=== PATIENT | female | born 1955 | race Hispanic/Latino ===

== ENCOUNTER → 2017-06-29 | Outpatient (REF) | payer OTHER ==
[2017-06-30 14:15] LABS: TOTAL PROTEIN,RANDOM URINE 5.5 MG/DL (0.0-12.0)
== END ==
LOC: M LAB REF 12:59
DX: N18.3 Chronic kidney disease, stage 3 (moderate) (principal)
CPT/HCPCS: 84156

== ENCOUNTER → 2017-08-28 | Outpatient (REF) | payer OTHER ==
[2017-08-28 19:10] LABS: FERRITIN 184 NG/ML (8-252); IRON (FE) 44 UG/DL (50-170); PERCENT SATURATION 17.3 % (13.2-45.0); TOTAL IRON BINDING CAPACITY 254 UG/DL (250-450)
== END ==
LOC: M LAB REF 18:14
DX: D64.9 Anemia, unspecified (principal)

== ENCOUNTER → 2017-09-26 | Outpatient (REF) | payer OTHER ==
[2017-09-26 14:07] LABS: APPEARANCE, URINE HAZY (CLEAR); BACTERIA, URINE AUTO 3+ (NEGATIVE); BILIRUBIN, URINE AUTO NEGATIVE (NEGATIVE); BLOOD, URINE BLOOD NEGATIVE (NEGATIVE); COLOR, URINE YELLOW (YELLOW); GLUCOSE, URINE (UA) AUTO NEGATIVE (NEGATIVE); KETONE, URINE AUTO NEGATIVE (NEGATIVE); LEUKOCYTE ESTERASE, URINE AUTO NEGATIVE (NEGATIVE); MUCUS, URINE SMALL (NEGATIVE); NITRITE, URINE AUTO NEGATIVE (NEGATIVE); PROTEIN, URINE AUTO NEGATIVE (NEGATIVE); RBC, URINE AUTO 1 /HPF (0-3); SPECIFIC GRAVITY URINE AUTO 1.008 (1.002-1.035); SQUAMOUS EPITHELIAL CELL UR AU 2 /HPF (0-6); UROBILINOGEN, URINE AUTO 0.2 mg/dL (0.0-2.0); WBC, URINE AUTO 2 /HPF (0-3)
== END ==
LOC: M SMT 13:25
DX: R31.0 Gross hematuria (principal)

== ENCOUNTER → 2017-10-02 | Outpatient (CLI) | payer OTHER ==
[~2017-10-02] MED LIST: ISOVUE-370 76% 100ML VIAL (Q9967) As Ordered
== END ==
LOC: M RAD 15:30
DX: K86.89 Other specified diseases of pancreas (principal)
CPT/HCPCS: Q9967

== ENCOUNTER → 2017-10-30 | Outpatient (REF) | payer OTHER | LOC: M SMT 17:32 | DX: R31.0 Gross hematuria (principal) | CPT/HCPCS: 88108 ==

== ENCOUNTER → 2018-03-01 | Outpatient (REF) | payer OTHER ==
[2018-03-01 13:35] LABS: APPEARANCE, URINE CLEAR (CLEAR); BACTERIA, URINE AUTO 1+ (NEGATIVE); BILIRUBIN, URINE AUTO NEGATIVE (NEGATIVE); BLOOD, URINE BLOOD NEGATIVE (NEGATIVE); COLOR, URINE YELLOW (YELLOW); GLUCOSE, URINE (UA) AUTO NEGATIVE (NEGATIVE); KETONE, URINE AUTO NEGATIVE (NEGATIVE); LEUKOCYTE ESTERASE, URINE AUTO NEGATIVE (NEGATIVE); NITRITE, URINE AUTO NEGATIVE (NEGATIVE); PROTEIN, URINE AUTO NEGATIVE (NEGATIVE); RBC, URINE AUTO 0 /HPF (0-3); SPECIFIC GRAVITY URINE AUTO 1.008 (1.002-1.035); SQUAMOUS EPITHELIAL CELL UR AU 2 /HPF (0-6); UROBILINOGEN, URINE AUTO 0.2 mg/dL (0.0-2.0); WBC, URINE AUTO 1 /HPF (0-3)
== END ==
LOC: M SMT 13:10
PROVIDERS: ATTEND Nurse Practitioner Women's Health
DX: R31.0 Gross hematuria (principal)

== ENCOUNTER 2018-09-17 14:58 | Outpatient (RCR) | payer MEDICARE, OTHER | END 2018-10-10 | disposition home or self-care (01) | LOC: M PT 14:58 | PROVIDERS: ATTEND Physician Assistant | DX: I89.0 Lymphedema, not elsewhere classified (principal) ==

== ENCOUNTER → 2020-09-15 | Outpatient (CLI) | payer MEDICARE ==
--- NOTE | 2020-09-15 13:47 | REP ---
INDICATION: PRESSURE ULCER OF RIGHT HEEL COMPARISON: None. TECHNIQUE: Right lower extremity arterial ultrasound and Doppler FINDINGS: All numeric values represent peak systolic velocity in cm/SEC The ankle brachial index is 0.81 FLIGHT TECHNICIAN: 133 triphasic Profunda: 114 biphasic SFA proximal: 80 monophasic SFA mid: 63 monophasic SFA distal 29-162 monophasic Popliteal: 57 monophasic JAYESH proximal: 64 monophasic Tibioperoneal trunk: Not visualized OYSTER FLOATER proximal: 8 monophasic OYSTER FLOATER distal: 8 monophasic JAYESH distal: 47 monophasic Mild to moderate calcified plaque was seen throughout the common femoral artery to the bifurcation with varying degrees of luminal narrowing increasing distally. Distal to the SFA a 5.6:1 stenosis was identified. IMPRESSION: As above <Electronically signed by Haim Figueroa > 09/15/20 2031
== END ==
LOC: M RAD 12:10
PROVIDERS: ATTEND Surgery
DX: L89.613 Pressure ulcer of right heel, stage 3 (principal); I70.211 Atherosclerosis of native arteries of extremities with intermittent claudication, right leg

== ENCOUNTER → 2020-09-29 | Outpatient (POV) | payer MEDICARE ==
[~2020-09-29] VITALS: Ht 162.6 cm; Wt 88.1 kg
[2020-09-29 09:15] VITALS: BP 111/63
--- NOTE | 2020-09-30 12:06 | IRCOV ---
[facility] IR Consult Office Visit IR Consult Office Visit DATE: Sep 29, 2020 REASON FOR CONSULTATION/CHIEF COMPLAINT: Nonhealing right heel ulcer. HISTORY OF PRESENT ILLNESS: 65-year-old female with diabetes, prior IA and former smoker, presents with nonhealing right heel ulcer. Patient's son translates for the patient. He states that the ulcer has been there for 5 months and is getting worse. There is no pain associated as she has numbness in her feet. Patient complains of cramps in the right leg all the time and worse with standing. She feels her cramping is better and pain is better with her legs elevated. She has suffered decades of bilateral lower extremity swelling and bulging varicose veins. These are "normal for her". Patient quit smoking 40 years ago. No prior lower extremity arterial thrombosis, gangrene, amputation or lower extremity arterial/venous procedures. No prior lower extremity angiography, angioplasty or stenting. Patient had an IA in 1995 and she has a defibrillator. She denies chest pain, shortness of breath, orthopnea or paroxysmal nocturnal dyspnea. No prior strokes. Patient states her diabetes is well-controlled. Patient is on Coumadin for the past 10 years. ALLERGIES: Please see below. HOME MEDICATIONS: Please see below. PAST MEDICAL HISTORY: Diabetes CHF Hypertension A. fib PAST SURGICAL HISTORY: Hernia surgery Defibrillator placement FAMILY HISTORY: Noncontributory. SOCIAL HISTORY: Ex-smoker. Quit 40 years ago. Denies alcohol or drugs. REVIEW OF SYSTEMS: Otherwise negative. PHYSICAL EXAMINATION: VITAL SIGNS: Please see below. GENERAL APPEARANCE: Appears well. Comfortable at rest. HEENT: No scleral icterus. RESPIRATORY: Normal breathing at rest. CARDIOVASCULAR: Normal rate. ABDOMEN: Soft nontender. EXTREMITIES: Left lower extremity: Edema to the knee. Warm to touch. Bulging varicose veins. Hemosiderin deposition. No ulcers. No gangrene. No amputations. Femoral pulse 2+ AT + PT negative. Motor 4 out of 5, sensation loss mid calf to feet. Right lower extremity: Color and temperature normal. There is hemosiderin deposition about the ankle. Right heel ulcer. Nontender. Edema to the knee. Bulging varicose veins. Sensory loss mid calf down to feet. Motor 4 out of 5. Femoral pulse 2+ PT +1 AT negative. NEUROLOGICAL: Alert and oriented. PSYCHIATRIC: Appropriate to circumstance. LABORATORY DATA: None recent. Imaging: I personally reviewed the right lower extremity arterial ultrasound performed 09/15/2020. There is distal SFA atherosclerotic disease with stenosis followed by monophasic waveforms to the foot. CURTIS 0.8. Calcified vasculature. ASSESSMENT/PLAN: 65-year-old diabetic female with history of coronary artery disease, presents with nonhealing right heel ulcer and abnormal right lower extremity arterial ultrasound. I agree she would benefit from angiography and/or intervention in the same setting as indicated. We discussed the risks and benefits of the procedure and patient is willing to proceed. We'll schedule the patient for right lower extremity angiography and intervention. She is on Coumadin for atrial fibrillation and will need to stop this prior to the procedure, but only after consultation with Dr. Rasheed. Patient understands this does put her at a risk of stroke. Lovenox bridge may be indicated; will refer to Dr. Rasheed for this. Given her bilateral lower extremity edema and findings of venous hypertension, I will also order bilateral lower extremity venous reflux study, to evaluate for saphenous vein reflux. I spent 30 minutes reviewing patient's records, imaging and in consultation with the patient. Thank you for this referral. Cc Dr. Rashid Cc Dr. Rasheed VS, I&O, 24H, Fishbone Vital Signs/I&O Vital Signs Date Time Temp Pulse Resp B/P (MAP) Pulse Ox O2 Delivery O2 Flow Rate FiO2 09/29/20 09:15 87.4 60 20 111/63 (79) 99 Room Air GURVINDER SPENCE MD Sep 30, 2020 12:06
== END ==
LOC: M IRPOV 09:04
PROVIDERS: ATTEND Radiology Diagnostic Radiology
DX: L89.619 Pressure ulcer of right heel, unspecified stage (principal); E11.621 Type 2 diabetes mellitus with foot ulcer; I25.2 Old myocardial infarction; I48.91 Unspecified atrial fibrillation; I50.9 Heart failure, unspecified; Z79.01 Long term (current) use of anticoagulants; Z87.891 Personal history of nicotine dependence; Z95.810 Presence of automatic (implantable) cardiac defibrillator

== ENCOUNTER 2020-10-05 11:46 | Inpatient (IN) | payer MEDICARE, OTHER ==
[~2020-10-05] VITALS: Ht 162.6 cm; Wt 78.3 kg
[2020-10-05] MEDS ORDERED: GLUCAGON INJ 1MG VIAL SC PRN (12:55)
[2020-10-05] MEDS ORDERED: GLUCOSE 4GM CHEW TABLET PO PRN (12:55)
[2020-10-05] MEDS ORDERED: DEXTROSE 50% 50 ML SYRINGE IV PRN (12:55)
[2020-10-05] MEDS ORDERED: METF500T13 PO (13:21)
[2020-10-05] MEDS ORDERED: LOPI600T PO (13:21)
[2020-10-05] MEDS ORDERED: DIGO0.253 PO (13:21)
[2020-10-05] MEDS ORDERED: HUMU70IN SC ×2 (13:21)
[2020-10-05] MEDS ORDERED: CARV12.5 PO (13:21)
[2020-10-05] MEDS ORDERED: BUME1TAB3 PO (13:21)
[2020-10-05] MEDS ORDERED: PANT40TA29 PO (13:21)
[2020-10-05] MEDS ORDERED: FEBU40TA2 PO (13:21)
[2020-10-05] MEDS ORDERED: AMIT50TA PO (13:21)
[2020-10-05] MEDS ORDERED: LISI10TA22 PO (13:21)
[2020-10-05] MEDS ORDERED: WARF-58 PO (13:21)
[2020-10-05] MEDS ORDERED: MAGN400T33 PO (13:21)
[2020-10-05 13:45] VITALS: BP 120/55
[2020-10-05 14:14] LABS: HEMATOCRIT 32.9 % (36.0-47.0); HEMOGLOBIN 10.6 g/dl (12.0-15.5); MEAN CORPUSCULAR HEMOGLOBIN 28.3 pg (27.0-33.0); MEAN CORPUSCULAR HGB CONC 32.2 g/dl (32.0-36.5); PLATELET COUNT, AUTOMATED 423 10^3/uL (150-450); RED BLOOD COUNT 3.74 10^6/uL (4.00-5.40); WHITE BLOOD COUNT 15.6 10^3/uL (4.0-10.0)
[2020-10-05] MEDS ORDERED: ASCO500T PO (14:32)
[2020-10-05] MEDS ORDERED: AMLO1TAB24 PO (14:32)
[2020-10-05] MEDS ORDERED: HOME MED LIST COMPLETE! XX SCH (14:35)
[2020-10-05 14:44] LABS: ALBUMIN 2.6 GM/DL (3.2-5.2); BILIRUBIN,TOTAL 0.9 MG/DL (0.2-1.0); CALCIUM LEVEL 9.2 MG/DL (8.8-10.2); CREATININE FOR GFR 1.88 MG/DL (0.55-1.30); GLOMERULAR FILTRATION RATE 28.4 (>45); POTASSIUM SERUM 4.4 MEQ/L (3.5-5.1); TOTAL PROTEIN 7.4 GM/DL (6.4-8.2)
[2020-10-05] MEDS ORDERED: VANCOMYCIN INTERMITTENT/PULSE DOSING BY CLINICAL PHARMACIST PER DOSING PROTOCOL XX SCH (15:30)
[2020-10-05] MEDS: PIPERACILLIN/TAZOBACTAM SOD 3.375 GM in D5W MINI-BAG PLUS 50 ML IV SCH ×2 (16:17→22:29)
--- NOTE | 2020-10-05 16:39 | HPEPDOC ---
[facility] Medical History & Physical Date of Admission Oct 05, 2020 Date of Service: Oct 05, 2020 Attending Physician: TAYLA KINNEY MD History and Physical CHIEF COMPLAINT: infected chronic R heel wound, directly admitted from wound care clinic per Dr. Rashid HISTORY OF PRESENT ILLNESS: 65 yo Bolivian speaking W with a history of IDDM2 c/b diabetic neuropathy and retinopathy with a history of a chronic R heel wound that started a small lesion on her R heel many months ago but has progressively grown until PCP referred her to see Dr. Rashid in the wound care clinic whom she saw for the third appointment today and was found to have worsening of her wound that has malodorous, necrotic and grown in size. Of note she had outpatient PVD studies including a LE arterial ultrasound that showed diffuse PVD that was more prominent distally and was tentatively scheduled for an angioplasty on 10/08. On noting the worsening now frankly infected wound, in addition to debridement, he recommended her admission to medicine for IV antibiotics, wound culture for targeted therapy and IR consult for potentially expedited intervention for her RLE. On evaluation, she was awake and alert with no pain complaints at this time, with son at bedside. She denied any recent fever, chills, rigors, and he described that it was draining on the dressing and malodorous at home such that he even was considering her directly to the ED two days ago but waited because she had Dr. Rashid's appointment today. She has a long history of neuropathy 2/2 DM and has no sensation up to midcalves as well in her hands and so often hurts herself without realizing, and they suspect that is how the initial insult happened. She walks with a two wheeled walker and lives with her son and his family and he does her dressing changes at home. She also denied any chest pain, shortness of breath, palpitations, worsening LE edema from her baseline, new cough, URI symptoms or noted bleeding. Of note, on her way out of the car into the hospital she accidentally fell when, and per bystander reports and her r eport she did not hit her head and she denies any pain. Of note, on initial vitals, she had a recorded oral temperature of 101.6 after having a recorded normal temperature in wound care clinic and without a history of recent fevers. Is due for a repeat set of vitals. Was otherwise normotensive. PAST MEDICAL HISTORY: DM c/b neuropathy and retinopathy HTN HLD CAD Chronic A fib peripheral vertiog GERD CHF, unspecified Gout PVD PAST SURGICAL HISTORY: Hysterectomy Cholecystectomy ICD placement Cystoscopy SOCIAL HISTORY: Lives with adult son and his family Is of [place] descent, and is Bolivian speaking only Prior remote smoking history No alcohol No illicit drug use FAMILY HISTORY: Father: , had metastatic cancer with unknown primary Mother: , from old age Siblings: Healthy Children: Healthy ALLERGIES: Please see below. REVIEW OF SYSTEMS: 10 point ROS was negative except as stated above in the HPI HOME MEDICATIONS: Please see below. PHYSICAL EXAMINATION: VITAL SIGNS: see below GENERAL APPEARANCE: NAD, conversational, obese HEENT: NCAT, PERRLA, EOMI, MMM, CARDIOVASCULAR: Regular, has 3/6 murmur that is loudest at LUSB LUNGS: CTAB, no crackles, wheezing or rhonchi, breathing comfortably on room air ABDOMEN: Obese, normoactive sounds, NTND EXTREMITIES: chronic LE edema with LLE in compression stocking while RLE now has clean new bandaging around the heel. Has varicosities in bilateral LE. NEUROLOGICAL: AOx3, CN 3 -12 intact, moving all extremities with full strength and full range of motion. Sensation absent in feet up to the midshins, sensation also absent/diminished in hands to about wrist level. PSYCHIATRIC: AOx3 LABORATORY DATA and IMAGING: None yet. Direct admission from home. MICROBIOLOGY: Please see below. ASSESSMENT: 65 yo Bolivian speaking W with a history of IDDM2 c/b diabetic neuropathy and retinopathy with a history of a chronic R heel wound that was found to be worse from prior and malodorous, necrotic and grown in size by Dr. Rashid, while also with significant PVD due for angioplasty to improve flow, by Dr. Sood, and now sent in for direct admission for treatment of her infected wound as well as expediting of IR PVD intervention with course now c/b noted fever. PLAN: Worsening infected RLE heel ulcer: -s/p debridement by Dr. Rashid in the office today, 10/05/2020, no cultures sent -wound culture -wound care per Dr. Rashid recs -consulted IR for PVD, spoke with Dr. Kaufman who plan to perform the angioplasty as soon as INR allow and is now <1.5. Her last dose of warfarin was on 10/04 and for now she is tentatively planning to do the procedure on 10/07 -Empiric vanc and piptazo -MRSA PCR, not that the evidence is in relation to wounds, but would yield information on colonization if wound culture is ultimately negative -BCx x 2 Fever: -BCx x 2 -Empiric vanc/piptazo -UA -CXR -respiratory panel DM: -continue twice daily 70/30 insulin -SSI AC/HS-hypoglycemia protocol -FSBG AC/HS -consistent carb diet -hold metformin HTN: -will continue coreg 12.5 BID -holding ACEi, bumex and amlodipine, to restart if BP rises and after labs return and renal function is evaluated Chronic Afib: -hold warfarin given pending IR procedure -daily INR -s/p ICD HLD: -continue gemfibrozil, febuxostat GERD: -continue pantoprazole CHF unspecified -holding bumex until labs result -continue ACEi, BB DVT ppx: recently on coumadin, being held in preparation for IR procedure. Dispo: med/surg Vital Signs Vital Signs Date Time Temp Pulse Resp B/P (MAP) Pulse Ox O2 Delivery O2 Flow Rate FiO2 10/05/20 13:45 101.6 62 18 120/55 (76) 98 Room Air Laboratory Data Labs 24H Laboratory Tests 2 10/05/20 13:30: Coronavirus (COVID-19)(PCR) NEGATIVE 10/05/20 13:32: 10/05/20 13:53: Nucleated Red Blood Cells % (auto) 0.0, Anion Gap 5L, Glomerular Filtration Rate 28.4L, Calcium Level 9.2, Total Bilirubin 0.9, Aspartate Amino Transf (AST/SGOT) 18, Alanine Aminotransferase (ALT/SGPT) 12, Alkaline Phosphatase 79, Total Protein 7.4, Albumin 2.6L, Albumin/Globulin Ratio 0.5L CBC/BMP Laboratory Tests 10/05/20 13:53 Microbiology Microbiology 10/05/20 Blood Culture, Received Pending 10/05/20 Wound Culture, Received Pending 10/05/20 Blood Culture, Received Pending Home Medications Scheduled Amitriptyline HCl (Amitriptyline HCl) 50 Mg Tablet, 50 MG PO QHS Amlodipine Besylate (Amlodipine Besylate) 5 Mg Tablet, 2.5 MG PO DAILY Ascorbic Acid (Ascorbic Acid) 500 Mg Tablet, 500 MG PO DAILY Bumetanide (Bumetanide) 1 Mg Tablet, 1 MG PO DAILY Carvedilol (Carvedilol) 12.5 Mg Tablet, 12.5 MG PO BID Digoxin (Digoxin) 250 Mcg Tablet, 250 MCG PO DAILY Febuxostat (Febuxostat) 40 Mg Tablet, 40 MG PO DAILY Gemfibrozil (Lopid) 600 Mg Tablet, 600 MG PO BID Insulin NPH Hum/Reg Insulin Hm (Humulin 70-30 Vial) 100 Unit/1 Ml Vial, 50 UNITS SC DAILY Insulin NPH Hum/Reg Insulin Hm (Humulin 70-30 Vial) 100 Unit/1 Ml Vial, 30 UNITS SC QHS Lisinopril (Lisinopril) 10 Mg Tablet, 10 MG PO DAILY Magnesium Oxide (Magnesium Oxide) 400 Mg Tablet, 400 MG PO Q2D Metformin HCl (Metformin HCl) 500 Mg Tablet, 500 MG PO BIDWM Pantoprazole Sodium (Pantoprazole Sodium) 40 Mg Tablet.dr, 40 MG PO DAILY Warfarin Sodium (Warfarin Sodium) 3 Mg Tablet, 3 MG PO QHS Allergies Coded Allergies: No Known Allergies (Unverified , 10/05/20) A-FIB/CHADSVASC A-FIB History Current/History of A-Fib/PAF?: Yes Current PO Anticoag Therapy: Yes Treatment Treatment ordered: Warfarin TAYLA KINNEY MD Oct 05, 2020 15:39
[2020-10-05] MEDS ORDERED: VANCOMYCIN HCL 1,000 MG, VIAL MATE ADAPTER 1 EACH in NS 250 ML IV ONE (17:00)
[2020-10-05] MEDS: HumaLOG INSULIN (NovoLOG) PER UNIT SC SCH ×2 (18:58→21:00)
[2020-10-05] MEDS ORDERED: VANCOMYCIN HCL 750 MG, VIAL MATE ADAPTER 1 EACH in NS 250 ML IV ONE (19:00)
--- NOTE | 2020-10-05 20:04 | REPVR ---
PROCEDURE INFORMATION: Exam: CT Right Lower Extremity Without Contrast, Foot Exam date and time: 10/05/2020 5:48 PM Age: 65 years old Clinical indication: Condition or disease; Other: Heel infection; Additional info: Infected R heel wound for extent of infection TECHNIQUE: Imaging protocol: CT of the Right lower extremity without a a a contrast was performed. Exam focused on the foot. Radiation optimization: All CT scans at this facility use at least one of these dose optimization techniques: automated exposure control; mA and/or kV adjustment per patient size (includes targeted exams where dose is matched to clinical indication); or iterative reconstruction. COMPARISON: US UNI LOW EXTREM ARTERIAL LIMIT 09/15/2020 12:32 PM FINDINGS: Bones/joints: No acute fractures. The bony cortical outline and marrow defect underlying the soft tissue defect are suggestive of acute osteomyelitis on image 50 of series 302. A Soft tissues: There is a large soft tissue ulceration defect seen in the medial heel pad of the right foot, best seen on image 108 of series 303. Medial to the soft tissue defect there is a fluid and gas collection, likely an abscess, measuring 2.8 x 2.1 cm transversely on image 61 of series 302 and measuring 1.6 cm in craniocaudal dimension on image 104 of series 303. Chronic calcific enthesopathy is seen in the proximal Achilles on image 6 of series 302. IMPRESSION: 1. There is a large soft tissue ulceration defect seen in the medial heel pad of the right foot, best seen on image 108 of series 303. 2. Medial to the soft tissue defect there is a fluid and gas collection, likely an abscess, measuring 2.8 x 2.1 cm transversely on image 61 of series 302 and measuring 1.6 cm in craniocaudal dimension on image 104 of series 303. 3. The bony cortical outline and marrow defect underlying the soft tissue defect are suggestive of acute osteomyelitis on image 50 of series 302. 4. No acute fractures. 5. Chronic calcific enthesopathy is seen in the proximal Achilles on image 6 of series 302. Electronically signed by: Nolberto Arias On 10/05/2020 20:03:59 PM
[2020-10-05] MEDS ORDERED: HumuLIN (NovoLIN)70/30 INSULIN INJ PER UNIT SC ONE (21:00)
[2020-10-05] MEDS ORDERED: HumuLIN (NovoLIN)70/30 INSULIN INJ PER UNIT SC SCH (21:00)
[2020-10-05 22:25] VITALS: BP 120/56
[2020-10-05] MEDS: AMITRIPTYLINE 50 MG TAB PO SCH (22:28)
[2020-10-05] MEDS: CARVedilol 12.5 MG TAB PO SCH (22:28)
[2020-10-06] MEDS: PIPERACILLIN/TAZOBACTAM SOD 3.375 GM in D5W MINI-BAG PLUS 50 ML IV SCH (04:16)
[2020-10-06 05:31] VITALS: BP 127/57
[2020-10-06] MEDS: ACETAMINOPHEN TAB 650MG DOSE (2X325MG) PO PRN (05:42)
[2020-10-06 08:04] LABS: PROTHROMBIN TIME 54.8 SECONDS (12.5-14.3)
[2020-10-06 08:06] LABS: HEMATOCRIT 27.8 % (36.0-47.0); HEMOGLOBIN 9.2 g/dl (12.0-15.5); MEAN CORPUSCULAR HEMOGLOBIN 28.9 pg (27.0-33.0); MEAN CORPUSCULAR HGB CONC 33.1 g/dl (32.0-36.5); MEAN CORPUSCULAR VOLUME 87.4 fl (80.0-96.0); PLATELET COUNT, AUTOMATED 353 10^3/uL (150-450); RED BLOOD COUNT 3.18 10^6/uL (4.00-5.40); WHITE BLOOD COUNT 14.1 10^3/uL (4.0-10.0)
[2020-10-06 08:08] LABS: INR 5.98
[2020-10-06] MEDS ORDERED: PHYTONADIONE 5 MG TAB PO ONE (08:15)
[2020-10-06 08:24] LABS: CALCIUM LEVEL 8.7 MG/DL (8.8-10.2); CREATININE FOR GFR 1.7 MG/DL (0.55-1.30); GLOMERULAR FILTRATION RATE 31.9 (>45); POTASSIUM SERUM 4.6 MEQ/L (3.5-5.1); VANCOMYCIN RANDOM 15.8 UG/ML
[2020-10-06] MEDS: ASCORBIC ACID 500 MG TAB PO SCH (08:46)
[2020-10-06] MEDS: HumaLOG INSULIN (NovoLOG) PER UNIT SC SCH ×4 (08:46→20:44)
[2020-10-06] MEDS: FEBUXOSTAT 40 MG TABLET (ULORIC) PO SCH (08:46)
[2020-10-06] MEDS: PANTOPRAZOLE 40MG TAB (PROTONIX) PO SCH (08:47)
[2020-10-06] MEDS ORDERED: HumuLIN (NovoLIN)70/30 INSULIN INJ PER UNIT SC SCH (09:00)
[2020-10-06] MEDS: CARVedilol 12.5 MG TAB PO SCH ×2 (10:37→21:27)
[2020-10-06] MEDS: DIGOXIN 0.25 MG TAB PO SCH (10:37)
[2020-10-06] MEDS: PIPERACILLIN/TAZOBACTAM SOD 2.25 GM in D5W MINI-BAG PLUS 50 ML IV SCH ×3 (10:37→21:28)
[2020-10-06] MEDS: VANCOMYCIN HCL 1,000 MG, VIAL MATE ADAPTER 1 EACH in NS 250 ML IV SCH (11:46)
[2020-10-06 14:00] VITALS: BP 123/55
[2020-10-06] MEDS: HumuLIN (NovoLIN)70/30 INSULIN INJ PER UNIT SC SCH (16:35)
--- NOTE | 2020-10-06 18:48 | IPNPDOC ---
Subjective Date Seen The patient was seen on 10/06/20. Subjective Chief Complaint/HPI No fever this morning, denies any pain in the heel, no nausea or vomiting or diarrhea. Has foul smell in the ulcer. Objective Physical Examination General Exam: Positive: Alert, Cooperative, No Acute Distress Eye Exam: Positive: PERRLA, Conjunctiva & lids normal, EOMI; Negative: Sclera icteric Chest Exam: Positive: Clear to auscultation, Normal air movement Heart Exam: Positive: Rate Normal, Irregular Rhythm, Normal S1, Normal S2; Negative: Murmurs, Rubs Abdomen Exam: Positive: Normal bowel sounds, Soft; Negative: Tenderness Extremity Exam: Positive: Normal pulses; Negative: Clubbing, Cyanosis, Edema Skin Exam: Positive: Other skin issue (Large right heel pressure ulcer coverring the whole heel ) Assessment /Plan Assessment 65 yo Lebanese speaking W with a history of IDDM2 c/b diabetic neuropathy and retinopathy with a history of a chronic R heel wound that was found to be worse from prior and malodorous, necrotic and grown in size by Dr. Rashid, while also with significant PVD due for angioplasty to improve flow, by Dr. Sood, and now sent in for direct admission for treatment of her infected wound as well as expediting of IR PVD intervention with course now c/b noted fever. Iinfected RLE heel ulcer with osteomyelitis s/p debridement by Dr. Rashid in the office 10/05/2020, wound care per Dr. Rashid recs Plans for angiogram by IR in the near future. However now with blood cultures positive I anticipate it is going to be done after the cultures are negative and the patient has got few days of antibiotics. Also INR is elevated over 5 Empiric vanc and piptazo BCx 1/2 positive for gram-negative rods Podiatry consult Gram-negative bacteremia Blood culture positive for gram-negative rods Coumadin toxicity Warfarin has been hold for the past 3 days but still INR has gone up to over 5 We will give vitamin K 5 mg as the patient may need IR procedure No signs of bleeding This is likely due to drug drug interaction with antibiotics DM: continue twice daily 70/30 insulin Fingerstick twice daily consistent carb diet HTN: will continue coreg 12.5 BID holding ACEi, bumex and amlodipine, to restart if BP rises and after labs return and renal function is evaluated Chronic Afib: hold warfarin given pending IR procedure daily INR s/p AICD Continue digoxin and Coreg HLD: continue gemfibrozil, febuxostat GERD: continue pantoprazole Systolic CHF Patient has an AICD in place We will hold KENNETH inhibitor and bumetanide Hyperuricemia/gout Uloric BRITTNY versus CKD Creatinine at 1.7, I do not have any baseline in our system Will hold Bumex and KENNETH inhibitor Plan/VTE VTE Prophylaxis Ordered?: Yes VS, I&O, 24H, Fishbone Vital Signs/I&O Vital Signs Date Time Temp Pulse Resp B/P (MAP) Pulse Ox O2 Delivery O2 Flow Rate FiO2 10/06/20 14:00 97.5 60 18 123/55 (77) 100 Room Air I&O- Last 24 Hours up to 6 AM 10/06/20 06:00 Intake Total 1450 ml Balance 1450 ml Laboratory Data 24H LABS Laboratory Tests 2 10/05/20 19:50: Bedside Glucose (Misc Panel) 144H 10/06/20 07:38: Nucleated Red Blood Cells % (auto) 0.0, Prothrombin Time 54.8H, Prothromb Time International Ratio 5.98*H, Anion Gap 7L, Glomerular Filtration Rate 31.9L, Calcium Level 8.7L, Magnesium Level 2.0, Random Vancomycin Level 15.8 10/06/20 07:49: Bedside Glucose (Misc Panel) 115 10/06/20 11:40: Bedside Glucose (Misc Panel) 139H 10/06/20 16:27: Bedside Glucose (Misc Panel) 168H CBC/BMP Laboratory Tests 10/06/20 07:38 Microbiology Microbiology 10/06/20 Blood Culture, Received Pending 10/05/20 Blood Culture - Preliminary, Resulted 10/05/20 Wound Culture, Received Pending 10/05/20 Blood Culture - Preliminary, Resulted No growth after 24 hours . All specim... BALDEMAR BOO MD Oct 06, 2020 18:48
[2020-10-06 20:00] VITALS: BP 153/67
--- NOTE | 2020-10-06 21:11 | IPN ---
PROGRESS NOTE Approximately 8:00 PM DATE: 10/06/2020 CHIEF COMPLAINT: The patient is seen for evaluation of an ulceration on the posterior aspect of her right heel. SUBJECTIVE: The patient states that she has had that ulceration for approximately 5 months. She has been seeing Dr. Rashid in the past and over the last 3 weeks it has gotten significantly worse. She is seen today for evaluation with an rolls mill operator and utilizing an iPad rolls mill operator. The patient states that her ulceration over the last 3 weeks is becoming foul smelling and she was subsequently admitted for infection in her right heel. Of note, the patient has an injury of the Achilles tendon, approximately 10 years ago which was not treated surgically or with casting in [place]. She is seen today for evaluation. PAST MEDICAL HISTORY: The patient's past medical history is significant for: 1. Diabetes mellitus with retinopathy and neuropathy. 2. Hypertension. 3. Coronary arterial disease. 4. Chronic atrial fibrillation. 5. Gastroesophageal reflux disease. 6. Congestive heart failure. 7. Gout. 8. Peripheral vascular disease. 9. Chronic kidney disease. PAST SURGICAL HISTORY: The patient's past surgical history is significant for: 1. Hysterectomy. 2. Cholecystectomy. 3. ICD placement. 4. Cystoscopy. OBJECTIVE: PHYSICAL EXAMINATION: GENERAL APPEARANCE: An alert, well orientated 65-year-old female in no acute distress. MEDICATIONS: At home: 1. Amitriptyline 50 mg tablets q. h.s. 2. Amlodipine 2.5 mg p.o. daily. 3. Ascorbic Acid 500 mg p.o. daily. 4. Butethamine one mg p.o. daily. 5. Carvedilol 12.5 mg p.o. twice daily. 6. Digoxin 250 mcg daily. 7. Febuxostat 40 mg p.o. daily. 8. Lopid 600 mg p.o. twice daily. 9. Insulin 50 units subcutaneously daily, 30 units q. h.s. 10. Lisinopril 10 mg daily. 11. Magnesium Oxide 400 mg p.o. q. 2 d. 12. Metformin 500 mg p.o. twice daily. 13. Pantoprazole 40 mg daily. 14. Warfarin 3 mg p.o. q. h.s. ALLERGIES: NO KNOWN ALLERGIES. PHYSICAL EXAMINATION: EXTREMITIES: Evaluation of the patient's foot reveals an ulceration at the posterior heel. This ulceration measures from medial to lateral, 5.5 cm, from distal to plantar 3.6 cm, so that was 5.5 cm by 3.6 cm by approximately one cm in depth. It extends directly to the calcaneus. There was a foul odor. Necrosis of the Achilles tendon is noted. IMAGING: CT scan was reviewed which reveals osseous loss of the posterior calcaneus at the insertion of the Achilles tendon where there is a large retrocalcaneal spur. Soft tissue defect is also noted with soft tissue defects, likely an abscess measuring 2.8 cm by 2.1 cm. LABORATORY STUDIES: Reviewed which revealed a white count on admission of 15.6. GFR on admission is 28.4, INR is 5.98. Micro bacteriology studies reveal a blood culture pending as well as a wound culture. ASSESSMENT: Osteomyelitis right heel. PLAN: We discussed with the patient surgical correction consisting of debridement of the tuber of the calcaneus. This would require detachment of the Achilles tendon which appears to be detached clinically with minimal plantar flexure strength of the right extremity. We discussed packing the wound open. This can be performed when her bleeding times are at a normal level. Presently she will continue on IV antibiotics until her culture becomes available for review. Her questions were answered. Continue utilizing a foam boot to offload the heel. Wound care consisting of cleaning the wound with Vashe, letting stand for 10 minutes, followed by Hydrochloride Gel with dressing twice daily.
[2020-10-06] MEDS: AMITRIPTYLINE 50 MG TAB PO SCH (21:27)
--- NOTE | 2020-10-06 21:51 | ECGEPIP ---
[facility] Test Date: 2020-10-05 Pat Name: ANTONIO ROWE Department: Room: [place] [address] Gender: Female Head Holder: josse : 1955 Requested By: TAYLA Otero Order Number: [id number] Reading MD: Marcos Rasheed Measurements Intervals [place] Rate: 63 P: ME: QRS: 154 QRSD: 148 T: -63 QT: 450 QTc: 460 Interpretive Statements Ventricular-paced rhythm with premature ventricular or aberrantly conducted complexes Underlying rhythm seems to be Atrial Fibrillation No prior tracing in the system Electronically Signed on 10-06-2020 21:51:38 EDT by Marcos Rasheed
[2020-10-07] VITALS (9 sets, daily range): BP systolic 122–167; BP diastolic 52–70
[2020-10-07] MEDS: PIPERACILLIN/TAZOBACTAM SOD 2.25 GM in D5W MINI-BAG PLUS 50 ML IV SCH ×4 (04:20→21:52)
[2020-10-07 06:33] LABS: HEMATOCRIT 29.4 % (36.0-47.0); HEMOGLOBIN 9.4 g/dl (12.0-15.5); MEAN CORPUSCULAR HEMOGLOBIN 27.8 pg (27.0-33.0); PLATELET COUNT, AUTOMATED 371 10^3/uL (150-450); RED BLOOD COUNT 3.38 10^6/uL (4.00-5.40); WHITE BLOOD COUNT 10.6 10^3/uL (4.0-10.0)
[2020-10-07 06:45] LABS: INR 1.64; PROTHROMBIN TIME 19.8 SECONDS (12.5-14.3)
[2020-10-07 06:57] LABS: CALCIUM LEVEL 8.5 MG/DL (8.8-10.2); CREATININE FOR GFR 1.4 MG/DL (0.55-1.30); GLOMERULAR FILTRATION RATE 39.9 (>45); POTASSIUM SERUM 4.4 MEQ/L (3.5-5.1)
[2020-10-07] MEDS: HumaLOG INSULIN (NovoLOG) PER UNIT SC SCH ×4 (07:30→21:00)
[2020-10-07] MEDS: FEBUXOSTAT 40 MG TABLET (ULORIC) PO SCH (07:59)
[2020-10-07] MEDS: HumuLIN (NovoLIN)70/30 INSULIN INJ PER UNIT SC SCH ×2 (07:59→16:11)
[2020-10-07] MEDS: MAGNESIUM OXIDE 400MG TAB (MAG-OX) PO SCH (08:01)
[2020-10-07] MEDS: ASCORBIC ACID 500 MG TAB PO SCH (08:01)
[2020-10-07] MEDS: PANTOPRAZOLE 40MG TAB (PROTONIX) PO SCH (08:01)
[2020-10-07] MEDS: CARVedilol 12.5 MG TAB PO SCH ×3 (09:00→22:02)
[2020-10-07] MEDS: DIGOXIN 0.25 MG TAB PO SCH (09:00)
[2020-10-07] MEDS: VANCOMYCIN HCL 1,000 MG, VIAL MATE ADAPTER 1 EACH in NS 250 ML IV SCH (11:00)
--- NOTE | 2020-10-07 14:46 | IPNPDOC ---
Subjective Date Seen The patient was seen on 10/07/20. Subjective Chief Complaint/HPI No further fever. No complaints this morning no events overnight. Going to over with podiatry Objective Physical Examination General Exam: Positive: Alert, Cooperative, No Acute Distress Eye Exam: Positive: PERRLA, Conjunctiva & lids normal, EOMI; Negative: Sclera icteric Chest Exam: Positive: Clear to auscultation, Normal air movement Heart Exam: Positive: Rate Normal, Irregular Rhythm, Normal S1, Normal S2; Negative: Murmurs, Rubs Abdomen Exam: Positive: Normal bowel sounds, Soft; Negative: Tenderness Extremity Exam: Positive: Normal pulses; Negative: Clubbing, Cyanosis, Edema Skin Exam: Positive: Other skin issue (Large right heel pressure ulcer coverring the whole heel ) Assessment /Plan Assessment 65 yo Frisian speaking W with a history of IDDM2 c/b diabetic neuropathy and retinopathy with a history of a chronic R heel wound that was found to be worse from prior and malodorous, necrotic and grown in size by Dr. Rashid, while also with significant PVD due for angioplasty to improve flow, by Dr. Sood, and now sent in for direct admission for treatment of her infected wound as well as expediting of IR PVD intervention with course now c/b noted fever. Infected RLE heel ulcer with osteomyelitis s/p debridement by Dr. Rashid in the office 10/05/2020, wound care per Dr. Rashid recs Plans for angiogram by IR in the near future. However now with blood cultures positive I anticipate it is going to be done after the cultures are negative and the patient has got few days of antibiotics. Empiric vanc and piptazo BCx 1/2 positive for gram-negative rods Podiatry to take OR for for incision and debridement Gram-negative bacteremia Blood culture positive for gram-negative rods Coumadin toxicity Resolved This is likely due to drug drug interaction with antibiotics We will give 1 unit of FFP because the patient is going for surgery and the INR is still at 1.[address] likely place the patient on Lovenox instead of restarting Coumadin in anticipation of angiogram that is scheduled for next Monday DM: continue twice daily 70/30 insulin Fingerstick twice daily consistent carb diet HTN: will continue coreg 12.5 BID holding ACEi, bumex and amlodipine, to restart if BP rises and after labs return and renal function is evaluated Chronic Afib: hold warfarin given pending IR procedure daily INR s/p AICD Continue digoxin and Coreg HLD: continue gemfibrozil, febuxostat GERD: continue pantoprazole Systolic CHF Patient has an AICD in place We will hold KENNETH inhibitor and bumetanide Hyperuricemia/gout Uloric BRITTNY versus CKD Creatinine at 1.7, I do not have any baseline in our system Will hold Bumex and KENNETH inhibitor Plan/VTE VTE Prophylaxis Ordered?: Yes VS, I&O, 24H, Fishbone Vital Signs/I&O Vital Signs Date Time Temp Pulse Resp B/P (MAP) Pulse Ox O2 Delivery O2 Flow Rate FiO2 10/07/20 14:35 96.7 60 14 139/64 99 Room Air I&O- Last 24 Hours up to 6 AM 10/07/20 05:59 Intake Total 1720 ml Output Total 0 ml Balance 1720 ml Laboratory Data 24H LABS Laboratory Tests 2 10/06/20 16:27: Bedside Glucose (Misc Panel) 168H 10/06/20 20:22: Bedside Glucose (Misc Panel) 159H 10/07/20 06:19: Nucleated Red Blood Cells % (auto) 0.0, Prothrombin Time 19.8H, Prothromb Time International Ratio 1.64, Anion Gap 5L, Glomerular Filtration Rate 39.9L, Calcium Level 8.5L 10/07/20 09:55: Vancomycin Level Trough 16.2 10/07/20 11:32: Bedside Glucose (Misc Panel) 149H CBC/BMP Laboratory Tests 10/07/20 06:19 Microbiology Microbiology 10/06/20 Blood Culture, Received Pending 10/05/20 Blood Culture - Preliminary, Resulted 10/05/20 Wound Culture - Preliminary, Resulted Escherichia Coli Staphylococcus Aureus 10/05/20 Blood Culture - Preliminary, Resulted No Growth after 48 hours. All Specime... BALDEMAR BOO MD Oct 07, 2020 14:46
[2020-10-07] MEDS ORDERED: ROPIvacaine 0.5% 30ML INJECTION (J2795 PER 1MG) As Ordered ONE (15:44)
[2020-10-07] MEDS ORDERED: TOBRAMYCIN SULF 1.2 GM VIAL As Ordered ONE (15:44)
[2020-10-07] MEDS ORDERED: LIDOCAINE 2% MDV 20ML VIAL As Ordered ONE (15:44)
[2020-10-07] MEDS ORDERED: dexameTHASONE 4 MG/ML 1ML VIAL (J1100 PER 1MG) As Ordered ONE (15:44)
--- NOTE | 2020-10-07 16:33 | CR ---
CONSULTATION DATE: 10/07/2020 REQUESTING PHYSICIAN: Dr. Regina Rangel REASON FOR CONSULTATION: Chronic kidney disease (CKD), stage IIIB in this patient with recent acute kidney injury and plan for pending angiogram. Ms. Analisa Rome is a 65-year-old female who is an established nephrology office patient with a baseline creatinine of 1.4-1.5 (proteinuric CKD, stage IIIB). She has a past medical history of insulin-dependent diabetes mellitus, hypertension, systolic congestive heart failure status post automatic implantable cardioverter defibrillator (AICD), atrial fibrillation, on chronic Coumadin anticoagulation, and other comorbid conditions mentioned below. Patient was admitted to [facility] on October 05 with a worsening chronic right heel wound. She was sent for direct admission by wound care, Dr. Rashid, and there is a plan for angiogram with Dr. Maya at the end of this week. Patient's creatinine on admission was 1.8, and her home diuretic (Bumex) along with lisinopril were both held, and creatinine is down to 1.4 on labs today. A nephrology evaluation was requested given her underlying chronic kidney disease and plan for contrast-based procedure. Patient was seen and examined this morning at the bedside, and I also spoke with her son over the phone, who accompanies her to her office visits and helped in translation. PAST MEDICAL HISTORY: 1. CKD, stage IIIB, baseline creatinine 1.4-1.5. 2. 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 3. Atrial fibrillation, on chronic Coumadin. 4. Hypertension. 5. Chronic right heel ulcer with osteomyelitis. 6. Dyslipidemia. 7. Gastroesophageal reflux disease (GERD). 8. Gout. 9. Systolic congestive heart failure, status post AICD. 10. Diabetic retinopathy and diabetic neuropathy. PAST SURGICAL HISTORY: 1. Hysterectomy. 2. Cholecystectomy. 3. ICD placement. 4. Cystoscopy. SOCIAL HISTORY: She is [place]. She mostly speaks Icelandic. She lives with her son. She is an ex-smoker. No alcohol. No drugs. FAMILY HISTORY: Significant for heart disease. ALLERGIES: SEPTRA. HOME MEDICATIONS: - amitriptyline 50 mg by mouth every night - amlodipine 2.5 mg by mouth daily - ascorbic acid 500 mg by mouth daily - bumetanide 1 mg by mouth daily - carvedilol 12.5 mg by mouth twice a day - digoxin 250 mcg by mouth daily - Uloric 40 mg by mouth daily - Lopid 600 mg by mouth twice daily - insulin - lisinopril 10 mg by mouth daily - magnesium oxide 400 mg every other day - metformin 500 mg by mouth twice a day - Protonix 40 mg by mouth twice a day - vitamin D 1000 units daily - Coumadin as directed REVIEW OF SYSTEMS: CONSTITUTIONAL: She denies fever or chills. EYES: She denies visual changes. She reports diabetic retinopathy. ENT: She denies odynophagia or rhinorrhea. CARDIAC: She has atrial fibrillation and congestive heart failure. RESPIRATORY: She denies shortness of breath or cough. ENDOCRINE: She reports insulin-dependent diabetes mellitus and obesity. HEMATOLOGIC: She reports chronic anticoagulant use and anemia. MUSCULOSKELETAL: She reports chronic right foot wound and history of gout. PSYCHIATRIC: She denies anxiety or depression. NEUROLOGIC: She denies seizure or syncope. GASTROINTESTINAL: She denies nausea, vomiting, diarrhea. She has a history of GERD. Remainder of review of systems is negative or as per history of present illness (HPI). VITAL SIGNS: Temperature 96.7, pulse 60, respiratory rate 14, blood pressure 139/64, saturating 99% on room air. Intake yesterday was 1720. Weight in the bed scale today is not recorded. GENERAL: Patient is seen lying in bed awake, alert, oriented times three in no distress. Extraocular muscles are intact. Tongue is moist. Neck is supple. Jugular veins are not elevated. HEART: Irregularly irregular. LUNGS: Show symmetric air entry. No crackle or rales. She is comfortable on room air. ABDOMEN: Soft, obese, and nontender. There is a defibrillator present in the left chest wall. EXTREMITIES: She has bulky obese lower legs without abrahan pitting edema. Her heels are in waffle boots. NEUROLOGIC: She is awake, alert, oriented times three, interactive and conversational, mostly in Icelandic. LABORATORY DATA: Sodium 133, potassium 4.4, bicarbonate 31, BUN 30, creatinine 1.4, calcium 8.5, magnesium 2.0, hemoglobin 9.4, white count 10.6. Blood culture October 05 with gram-negative rods times one set. Wound culture with Escherichia (E) coli and Staphylococcus aureus. INR 1.6. CT of the right lower extremity without contrast done Zoila 26 shows large soft tissue ulceration of the medial heel pad of the right foot with bony cortical outline and marrow defect underlying the soft tissue, suggestive of acute osteomyelitis. INPATIENT MEDICATIONS: - Zosyn 2.25 grams intravenous (IV) every 6 hours - vancomycin 1 gram IV daily - Tylenol as needed - amitriptyline 50 mg by mouth every night - Coreg 12.5 mg by mouth twice a day - digoxin 0.25 mg by mouth daily - Uloric 40 mg by mouth daily - Lopid 600 mg by mouth twice a day - insulin - magnesium 400 mg every other day - Protonix 40 mg by mouth daily PROBLEMS: 1. Chronic kidney disease (CKD), stage IIIB. Patient's baseline creatinine is 1.4-1.5. She had a mild acute kidney injury on admission. Her Bumex and lisinopril, which she takes at home, were both held. Creatinine has come down to 1.4 on the labs today. I would continue to hold angiotensin-converting enzyme (KENNETH) inhibitor and diuretic given that she is for probable angiogram on Monday. There is no need for IV fluid at present; however, when she is going for the angiogram we will discuss with Dr. Maya for reduced dose of dye as needed for the procedure and for gentle hydration at that time as well. 2. Systolic congestive heart failure. KENNETH inhibitor is on hold given recent acute kidney injury. Renal function has now recovered to baseline. There is a plan for angiogram at the end of this week. Continue to hold KENNETH inhibitor. Continue to hold bumetanide. Volume status is acceptable. Patient is saturating well on room air. We will keep an eye on her volume status. 3. Hypertension. Blood pressures are well controlled with carvedilol alone. Continue to hold amlodipine, lisinopril, and bumetanide. 4. Anemia. We will get iron studies, but the patient is not suitable for intravenous (IV) iron allergen immunotherapy given recent positive blood culture with gram-negative diana for one set. Her Coumadin is on hold because of elevated INR (INR down to 1.6 today). 5. Infected right heel ulcer with osteomyelitis, followed by Dr. Rashid in the outpatient setting. Currently on empiric vancomycin and Zosyn. One set of positive blood cultures noted. Repeat blood cultures are pending. White count has down-trended. Probable angiogram by interventional radiology at the end of this week. Nephrotoxic medications are all on hold (KENNETH inhibitor, diuretic). 6. Hyponatremia. Sodium level is improving, and no intervention is needed at present. She does not need any IV fluids at this time. Continue to hold the diuretic.
[2020-10-07] MEDS ORDERED: propofoL 200 MG/20 ML VIAL As Ordered ONE (17:47)
[2020-10-07] MEDS ORDERED: LIDOCAINE 2% 100MG/5ML SDV (FOR ANES.) As Ordered ONE (17:48)
[2020-10-07] MEDS ORDERED: fentaNYL 100 MCG/2 ML INJECTION (J3010) As Ordered ONE (17:50)
[2020-10-07] MEDS ORDERED: MIDAZOLAM INJ 2MG/2ML VIAL (J2250 PER 1MG) As Ordered ONE (17:50)
[2020-10-07] MEDS ORDERED: HYDROMORPHONE HCL 0.5 MG/ 0.5 ML SYRINGE (J1170 PER 1) IV PRN (19:25)
[2020-10-07] MEDS ORDERED: ONDANSETRON 4MG/2ML VIAL IV PRN (19:25)
[2020-10-07] MEDS ORDERED: fentaNYL 100 MCG/2 ML INJECTION (J3010) IV PRN (19:25)
[2020-10-07] MEDS ORDERED: PERCOCET 5MG/325MG TAB PO PRN ×2 (20:05)
[2020-10-07] MEDS: AMITRIPTYLINE 50 MG TAB PO SCH (21:49)
--- NOTE | 2020-10-07 21:54 | REPVR ---
PROCEDURE INFORMATION: Exam: XR Right Foot Exam date and time: 10/07/2020 8:11 PM Age: 65 years old Clinical indication: Pain; Heel; Right; Additional info: Post op TECHNIQUE: Imaging protocol: XR Right foot. Views: 3 or more views. COMPARISON: CT-Foot WITHOUT CONTRAST RIGHT 10/05/2020 6:35 PM FINDINGS: Bones/joints: Since 10/05/2020 CT, there has been soft tissue and osseous debridement at the posterior aspect of the calcaneal process. The resection margin of the posterior calcaneal process appears smooth. No acute fracture is visualized. No dislocation is seen. Soft tissues: Packing material is present in the soft tissue defect. There is diffuse soft tissue swelling of the foot and ankle. No soft tissue gas is seen. IMPRESSION: Postsurgical changes at the posterior aspect of calcaneal process. No immediate complication is evident. Electronically signed by: Karlie Russell On 10/07/2020 21:54:02 PM
--- NOTE | 2020-10-07 22:11 | RO ---
OPERATIVE NOTE DATE OF OPERATION: 10/07/2020 PREOPERATIVE DIAGNOSIS: Osteomyelitis, posterior right calcaneus. POSTOPERATIVE DIAGNOSIS: Osteomyelitis, posterior right calcaneus. PROCEDURE: Posterior resection of calcaneal osteomyelitis, right heel. SURGEON: Doug Bone DPM [employer]OOMCORN GRADER: None. ANESTHESIA: Local MAC. IRRIGATION: Normal saline, three liters, low pressure pulse lavage system. DRAINS UTILIZED: 1/2 inch iodoform gauze. HEMOSTASIS UTILIZED: None. DESCRIPTION OF PROCEDURE: On 10/07/2020, this 65-year-old female was taken from her hospital room to the operating room and placed on the operating table in the prone position. Following the induction of IV sedation and local and regional anesthesia, the right lower extremity was prepped and draped in the usual aseptic manner. Attention was directed to the patient's right foot where was noted to be a wound measuring 6 cm x 4.1 cm approximately 1 cm in depth. The posterior calcaneus was exposed with erosion of the Achilles tendon. After adequate anesthesia was obtained and sterile draping was completed, an incision was made approximately 2 cm along the medial tendo Achilles and along the inferior ulcer measuring approximately 3 cm. Dissection was then carried down and excisional debridement was carried down to bone. Exposure was then obtained to expose the posterior calcaneus from the medial tuberosity to the posterior process of the calcaneus. Utilizing a sagittal saw, an osteotomy was performed through the posterior calcaneus. This was sent for aerobic and anaerobic culture. The wound was then flushed with three liters of normal saline solution. The wound was packed with iodoform gauze and a sterile dressing was applied. The patient having tolerated the procedure well and was taken from the OR to the recovery room for further monitoring by the anesthesia department. Postoperative instructions were given upon discharge.
[2020-10-08 02:00] VITALS: BP 159/56
[2020-10-08] MEDS: PIPERACILLIN/TAZOBACTAM SOD 2.25 GM in D5W MINI-BAG PLUS 50 ML IV SCH (04:24)
[2020-10-08 06:00] VITALS: BP 142/83
[2020-10-08 06:59] LABS: HEMATOCRIT 27.9 % (36.0-47.0); HEMOGLOBIN 8.8 g/dl (12.0-15.5); MEAN CORPUSCULAR HEMOGLOBIN 27.8 pg (27.0-33.0); MEAN CORPUSCULAR HGB CONC 31.5 g/dl (32.0-36.5); MEAN CORPUSCULAR VOLUME 88.3 fl (80.0-96.0); PLATELET COUNT, AUTOMATED 363 10^3/uL (150-450); RED BLOOD COUNT 3.16 10^6/uL (4.00-5.40); WHITE BLOOD COUNT 12.1 10^3/uL (4.0-10.0)
[2020-10-08 07:12] LABS: INR 1.35
[2020-10-08 07:24] LABS: CALCIUM LEVEL 8.7 MG/DL (8.8-10.2); CREATININE FOR GFR 1.35 MG/DL (0.55-1.30); GLOMERULAR FILTRATION RATE 41.6 (>45); POTASSIUM SERUM 4.7 MEQ/L (3.5-5.1)
[2020-10-08] MEDS: ASCORBIC ACID 500 MG TAB PO SCH (08:10)
[2020-10-08] MEDS: HumaLOG INSULIN (NovoLOG) PER UNIT SC SCH ×4 (08:10→20:25)
[2020-10-08] MEDS: PANTOPRAZOLE 40MG TAB (PROTONIX) PO SCH (08:10)
[2020-10-08] MEDS: FEBUXOSTAT 40 MG TABLET (ULORIC) PO SCH (08:10)
[2020-10-08] MEDS: HumuLIN (NovoLIN)70/30 INSULIN INJ PER UNIT SC SCH ×2 (08:10→17:40)
[2020-10-08] MEDS: DIGOXIN 0.25 MG TAB PO SCH (08:12)
[2020-10-08] MEDS: CARVedilol 12.5 MG TAB PO SCH ×2 (08:13→20:30)
[2020-10-08 10:00] VITALS: BP 129/69
[2020-10-08] MEDS: PIPERACILLIN/TAZOBACTAM SOD 3.375 GM in D5W MINI-BAG PLUS 50 ML IV SCH ×3 (10:12→21:24)
--- NOTE | 2020-10-08 11:22 | IRINPTCON ---
[facility] IR Inpatient Consultation IR Inpatient Consultation DATE: Oct 08, 2020 REASON FOR CONSULTATION/CHIEF COMPLAINT: Nonhealing wounds. HISTORY OF PRESENT ILLNESS: 65-year-old diabetic female with a atrial fibrillation, CHF, hypertension, CKD and prior ND, is known to me from outpatient clinic. Patient has chronic peripheral vascular disease and nonhealing right lower extremity heel ulcer, for which she was scheduled to have outpatient angiography and intervention with me. Patient was recently admitted for systemic fevers and infected right heel ulcer. She was found to have positive blood cultures. She underwent debridement and posterior calcaneal resection yesterday in the OR. Patient is on IV antibiotics. Patient is sitting up in a chair. She denies any pain in the right lower extremity. She reports her surgery went well. She denies fevers or chills overnight. ALLERGIES: Please see below. HOME MEDICATIONS: Please see below. PAST MEDICAL HISTORY: Diabetes Hypertension CHF CKD Prior ND PAST SURGICAL HISTORY: Right calcaneal resection. Defibrillator placement Hernia surgery FAMILY HISTORY: Noncontributory. SOCIAL HISTORY: Nonsmoker. Denies alcohol or drugs. REVIEW OF SYSTEMS: Otherwise negative. PHYSICAL EXAMINATION: VITAL SIGNS: Please see below. GENERAL APPEARANCE: Appears well. Comfortable at rest. Normal mentation. HEENT: No scleral icterus. RESPIRATORY: Normal breathing at rest. CARDIOVASCULAR: Normal rate. ABDOMEN: Non-distended. EXTREMITIES: Right lower extremity: Edema to knee. Warm to touch. Toes warm to touch. Color normal. Motor 4 out of 5. Left lower extremity: Edema to knee. Warm to touch. Motor 4 out of 5. NEUROLOGICAL: Alert and oriented. PSYCHIATRIC: Appropriate to circumstance. LABORATORY DATA: 10/08/2020 hemoglobin 8.8 hematocrit 27.9 WBC 12.1 (decreased from 15.6) MCV 88.3 MCHC 31.5 platelets 363 sodium 132 potassium 4.7 BUN 22 creatinine 1.35 GFR 41.6 (increased from 28.4) fasting glucose 165 INR 1.35 Microbiology: Blood cultures 10/05/2020 1 of 2 positive for gram-negative rods Morganella morganii. Wound culture 10/05/2020 Morganella morganii Imaging: Presurgical CT of the right foot 10/05/2020. Lucency in the posterior calcaneus with cortical discontinuity. ASSESSMENT/PLAN: 65-year-old diabetic female with chronic PAD, nonhealing right heel ulcer, which subsequently became infected and required partial calcaneal resection in the OR. She was originally scheduled for angiography and intervention today, however this is complicated by her recent positive blood cultures. However, now we have debridement and source control, and IV antibiotics. I will wait on the repeat blood cultures and plan for angiography and intervention on Monday. Patient should remain off her Coumadin. If clinically indicated, suggest Lovenox coverage over the weekend. If Lovenox is started, hold Lovenox doses on Monday. Keep patient NPO after midnight Monday night, for planned procedure Monday. Thank you for this referral. Cc Dr. Rashid Allergies Coded Allergies: No Known Allergies (Unverified , 10/05/20) Home Medications Scheduled Amitriptyline HCl (Amitriptyline HCl), 50 MG PO QHS, (Reported) Amlodipine Besylate (Amlodipine Besylate), 2.5 MG PO DAILY, (Reported) Ascorbic Acid (Ascorbic Acid), 500 MG PO DAILY, (Reported) Bumetanide (Bumetanide), 1 MG PO DAILY, (Reported) Carvedilol (Carvedilol), 12.5 MG PO BID, (Reported) Digoxin (Digoxin), 250 MCG PO DAILY, (Reported) Febuxostat (Febuxostat), 40 MG PO DAILY, (Reported) Gemfibrozil (Lopid), 600 MG PO BID, (Reported) Insulin NPH Hum/Reg Insulin Hm (Humulin 70-30 Vial), 50 UNITS SC DAILY, (Reported) Insulin NPH Hum/Reg Insulin Hm (Humulin 70-30 Vial), 30 UNITS SC QHS, (Reported) Lisinopril (Lisinopril), 10 MG PO DAILY, (Reported) Magnesium Oxide (Magnesium Oxide), 400 MG PO Q2D, (Reported) Metformin HCl (Metformin HCl), 500 MG PO BIDWM, (Reported) Pantoprazole Sodium (Pantoprazole Sodium), 40 MG PO DAILY, (Reported) Warfarin Sodium (Warfarin Sodium), 3 MG PO QHS, (Reported) VS, I&O, 24H, Fishbone Vital Signs/I&O Vital Signs Date Time Temp Pulse Resp B/P (MAP) Pulse Ox O2 Delivery O2 Flow Rate FiO2 10/08/20 08:13 60 128/67 10/08/20 06:00 97.9 18 97 Room Air I&O- Last 24 Hours up to 6 AM 10/08/20 05:59 Intake Total 2695 ml Output Total 520 ml Balance 2175 ml Laboratory Data 24H LABS Laboratory Tests 2 10/07/20 11:32: Bedside Glucose (Misc Panel) 149H 10/07/20 16:05: Bedside Glucose (Misc Panel) 111 10/07/20 19:18: Bedside Glucose (Misc Panel) 96 10/07/20 20:45: Bedside Glucose (Misc Panel) 95 10/08/20 06:41: Nucleated Red Blood Cells % (auto) 0.0, Prothrombin Time 17.0H, Prothromb Time International Ratio 1.35, Anion Gap 3L, Glomerular Filtration Rate 41.6L, Calcium Level 8.7L 10/08/20 09:59: Vancomycin Level Trough 16.7 CBC/BMP Laboratory Tests 10/08/20 06:41 Microbiology Microbiology 10/07/20 Anaerobic Culture, Received Pending 10/07/20 Wound Culture, Received Pending 10/06/20 Blood Culture - Preliminary, Resulted No growth after 24 hours . All specim... 10/05/20 Blood Culture - Final, Complete Morganella Morganii Ssp Sharif 10/05/20 Wound Culture - Final, Complete Escherichia Coli Morganella Morganii Ssp Sharif Enterococcus Faecalis Staph.aureus Methicillin Resis 10/05/20 Blood Culture - Preliminary, Resulted No Growth after 48 hours. All Specime... GURVINDER SPENCE MD Oct 08, 2020 11:22
[2020-10-08] MEDS: VANCOMYCIN HCL 1,000 MG, VIAL MATE ADAPTER 1 EACH in NS 250 ML IV SCH (11:37)
--- NOTE | 2020-10-08 11:39 | IPNPDOC ---
Subjective Date Seen The patient was seen on 10/08/20. Subjective Chief Complaint/HPI No complaints this morning except for some deep throbbing pain in the right heel. Objective Physical Examination General Exam: Positive: Alert, Cooperative, No Acute Distress Eye Exam: Positive: PERRLA, Conjunctiva & lids normal, EOMI; Negative: Sclera icteric Chest Exam: Positive: Clear to auscultation, Normal air movement Heart Exam: Positive: Rate Normal, Irregular Rhythm, Normal S1, Normal S2; Negative: Murmurs, Rubs Abdomen Exam: Positive: Normal bowel sounds, Soft; Negative: Tenderness Extremity Exam: Positive: Normal pulses; Negative: Clubbing, Cyanosis, Edema Skin Exam: Positive: Other skin issue (Large right heel pressure ulcer coverring the whole heel ) Assessment /Plan Assessment 65 yo Belizean speaking W with a history of IDDM2 c/b diabetic neuropathy and retinopathy with a history of a chronic R heel wound that was found to be worse from prior and malodorous, necrotic and grown in size by Dr. Rashid, while also with significant PVD due for angioplasty to improve flow, by Dr. Sood, and now sent in for direct admission for treatment of her infected wound as well as expediting of IR PVD intervention with course now c/b noted fever. Infected RLE heel ulcer with osteomyelitis of the calcaneum s/p posterior resection of the right calcaneum on 10/07/[address] Bone Wound cultures both aerobic and anaerobic have been sent from the OR Wound cultures from the ED shows polymicrobial adolph; MRSA, Enterococcus faecalis, E. coli, Morganella Continue vanc and piptazo BCx 1/2 positive for Morganella We will consult ID Gram-negative bacteremia Blood culture positive for Morganella Possible peripheral arterial disease Plan for angiography of the lower extremity on October 11, 2020 DM: continue twice daily 70/30 insulin Fingerstick twice daily consistent carb diet HTN: will continue coreg 12.5 BID holding ACEi, bumex and amlodipine, to restart if BP rises and after labs return and renal function is evaluated Chronic Afib: hold warfarin given pending IR procedure. Will start on Lovenox daily INR s/p AICD Continue digoxin and Coreg HLD: continue gemfibrozil, febuxostat GERD: continue pantoprazole Systolic CHF Patient has an AICD in place We will hold KENNETH inhibitor and bumetanide Hyperuricemia/gout Uloric CKD stage III Baseline creatinine around 1.4 to 1.5 Creatinine at baseline Plan/VTE VTE Prophylaxis Ordered?: Yes VS, I&O, 24H, Fishbone Vital Signs/I&O Vital Signs Date Time Temp Pulse Resp B/P (MAP) Pulse Ox O2 Delivery O2 Flow Rate FiO2 10/08/20 10:00 98.1 60 17 129/69 (89) 98 Room Air I&O- Last 24 Hours up to 6 AM 10/08/20 06:00 Intake Total 2525 ml Output Total 520 ml Balance 2005 ml Laboratory Data 24H LABS Laboratory Tests 2 10/07/20 16:05: Bedside Glucose (Misc Panel) 111 10/07/20 19:18: Bedside Glucose (Misc Panel) 96 10/07/20 20:45: Bedside Glucose (Misc Panel) 95 10/08/20 06:41: Nucleated Red Blood Cells % (auto) 0.0, Prothrombin Time 17.0H, Prothromb Time International Ratio 1.35, Anion Gap 3L, Glomerular Filtration Rate 41.6L, Calcium Level 8.7L 10/08/20 09:59: Vancomycin Level Trough 16.7 CBC/BMP Laboratory Tests 10/08/20 06:41 Microbiology Microbiology 10/07/20 Anaerobic Culture, Received Pending 10/07/20 Wound Culture, Received Pending 10/06/20 Blood Culture - Preliminary, Resulted No growth after 24 hours . All specim... 10/05/20 Blood Culture - Final, Complete Morganella Morganii Ssp Sharif 10/05/20 Wound Culture - Final, Complete Escherichia Coli Morganella Morganii Ssp Sharif Enterococcus Faecalis Staph.aureus Methicillin Resis 10/05/20 Blood Culture - Preliminary, Resulted No Growth after 48 hours. All Specime... BALDEMAR BOO MD Oct 08, 2020 11:39
[2020-10-08 11:58] LABS: DIGOXIN LEVEL 2.2 NG/ML (0.5-2.0); PERCENT SATURATION 22.2 % (13.2-45.0)
--- NOTE | 2020-10-08 12:53 | IPN ---
PROGRESS NOTE DATE: 10/08/2020 SUBJECTIVE: Ms. Rome is seen and examined this morning sitting out of bed to the chair. Her angiogram is on hold because of the abnormal blood culture. She denies any shortness of breath. She denies any nausea, vomiting or diarrhea. She remains afebrile. OBJECTIVE: VITAL SIGNS: Temperature is 98.1, pulse is 60, respiratory rate is 17, blood pressure is 129/69, saturating 98% on room air. INTAKE AND OUTPUT: Intake yesterday was 2.5 liters. Weight on the bed scale today is not recorded. GENERAL: The patient is seen sitting in the chair with the legs elevated, awake, alert and oriented x3, interactive, conversational in Polish. HEENT: Extraocular muscles are intact. Tongue is moist. NECK: Supple. Jugular veins were not elevated while she was sitting upright. HEART: Heart sounds are irregular and there is a prominent defibrillator in the left chest wall. EXTREMITIES: There is chronic bulky lower extremities but there is no pitting edema. LUNGS: Symmetric breath movement. No crackle or rale. She is comfortable on room air. ABDOMEN: Soft and nontender. EXTREMITIES: The right foot has dressings and her legs are bulky but there is no pitting edema. NEUROLOGIC: She is oriented x3, interactive, conversation. PSYCHIATRIC: Appropriate mood and affect. LABORATORY DATA: White count is 12.1, hemoglobin 8.8, platelets 363,000, sodium 132, potassium 4.7, bicarbonate 28, BUN 22, creatinine 1.3. Iron 38. Transferrin saturation 22% with a ferritin of 388. Blood cultures drawn on October 05 grew Morganella Morganii for one set of culture, the other set did not grow anything. She had repeat blood cultures drawn October 06 that shows no growth and wound cultures from the right foot are pending. INPATIENT MEDICATIONS: The patient continues on IV Zosyn and IV Vancomycin, the most recent Vancomycin trough level was 16.7 this morning. Her remainder of medications show no change as compared to yesterday. 1. CKD Stage IIIB. Baseline creatinine is 1.4 to 1.5. Patient had a mild acute kidney injury on admission, it has now resolved. Renal function is at her usual baseline. Her home KENNETH inhibitor and home Bumex remain on hold. Plans for angiogram are now temporarily held in view of gram negative bacteremia. There is no need for IV fluid at this time. I would continue to hold the KENNETH inhibitor throughout the course of her admission and her Bumex can be continued to be held for now as well. 2. Hypertension, blood pressures are well-controlled. Systolic is 120s to 140s and she is presently on Carvedilol. Continue to hold the KENNETH inhibitor and the diuretic at this time. 3. Systolic congestive heart failure status post AICD. KENNETH inhibitor and diuretic on hold. She is saturating well on room air. We will keep an eye on her volume and respiratory status. 4. Anemia with iron deficiency. She is not suitable for IV iron at this time given recent positive blood culture. There is no need for transfusion at present. Hemoglobin is 8.8 on the latest labs. 5. Mild hyponatremia. No intervention necessary at present. Serum sodium has been pretty much unchanged over the past four days. Diuretic is presently held.
[2020-10-08 14:00] VITALS: BP 132/70
[2020-10-08 16:12] LABS: C REACTIVE PROTEIN QUANTITATIV 8.14 MG/DL (0.00-0.30)
[2020-10-08 20:30] VITALS: BP 145/71
[2020-10-08] MEDS: AMITRIPTYLINE 50 MG TAB PO SCH (20:31)
--- NOTE | 2020-10-08 20:47 | CR ---
INFECTIOUS DISEASE CONSULTATION DATE: 10/08/2020 REASON FOR CONSULTATION: Asked to consult by hospitalist for evaluation of acute osteomyelitis of the right calcaneus with Morganella bacteremia. HISTORY OF PRESENT ILLNESS: Analisa is a pleasant 65-year-old female admitted to [facility] with a fever of 101.6. The patient had a decubitus ulcer on the right heel for at least a five month duration. She is diabetic with neuropathy and retinopathy. The patient is not very ambulatory and lives with her son in [place]. She had followed up in Dr. Rashid's office at the wound care center for the past three weeks and antibiotics were discontinued. The son was concerned that she had an enlarging wound with foul-smelling necrotic discharge. She also had an ultrasound of her lower extremity, which showed severe peripheral vascular disease and she was scheduled to have an angioplasty on 10/08/2020. The patient was noted to be bacteremic and culture was positive for Morganella morganii. Culture from the wound had plenty microbial adolph including Morganella, Escherichia (E) coli, Enterococcus faecalis and methicillin-resistant Staphylococcus aureus (MRSA). The patient was started on intravenous (IV) vancomycin and Zosyn with improvement in her symptoms. She was taken to the operating room by Dr. Bone, who did debridement of the bone, calcanectomy and sent more cultures with anaerobic cultures that are still pending. She feels much better. She denies any chest pain, shortness of breath. No nausea, vomiting or diarrhea and no further fevers. Patient also fell on her way to the hospital. PAST MEDICAL HISTORY: Significant for: 1. Diabetes with neuropathy and retinopathy. 2. Hypertension. 3. Hyperlipidemia. 4. Coronary artery disease. 5. Atrial fibrillation with defibrillator. 6. Vertigo. 7. Gastroesophageal reflux disease. 8. Congestive heart failure. 9. Gout. 10. Peripheral vascular disease. PAST SURGICAL HISTORY: 1. Hysterectomy. 2. Cholecystectomy. 3. Automatic implantable cardioverter-defibrillator (AICD) placement. 4. Cystoscopy. SOCIAL HISTORY: She lives with her son, Dong and his family, but she is considering detention placement. She is originally from [place] and moved here four years ago. She quit smoking years ago. No alcohol or drug use. FAMILY HISTORY: Father of cancer. ALLERGIES: No known drug allergies. MEDICATIONS: - Zosyn 3.375 grams every 6 hours - Percocet as needed - vancomycin 1 gram IV every 24 hours - pantoprazole 40 mg by mouth daily - Uloric 40 mg by mouth daily - digoxin 0.25 mg daily - ascorbic acid 500 mg daily - gemfibrozil 600 mg by mouth twice a day - Coreg 12.5 mg by mouth twice a day - amitriptyline 50 mg by mouth at bedtime - Tylenol as needed LABORATORY DATA: White count on admission was 15.6. Today, her white count is 12.1, hemoglobin 8.8, hematocrit 27.9, platelets 363. Sodium 132, potassium 4.7, chloride 101, bicarbonate 28, BUN 22, creatinine 1.35, glucose 165, calcium 8.7. Iron 38. Total iron binding capacity (TIBC) 171. Iron saturation 22%. Ferritin 388. C-reactive protein (CRP) 8.14. AST 18, ALT 12, alkaline phosphatase 79, albumin 2.6. Blood cultures: One out of two sets were positive for Morganella morganii. Heel culture had Escherichia (E) coli, Morganella, Enterococcus and methicillin-resistant Staphylococcus aureus (MRSA). Blood culture on 10/06/2020 was negative. Wound culture and aerobic/anaerobic from the operating room (OR) is still pending. Morganella was resistant to ampicillin, cefazolin and tigecycline. IMAGING DATA: X-ray of the foot had postsurgical changes, resection of the calcaneus process. No acute fractures. Extremity CT done on 10/05/2020 showed large soft tissue ulceration with fluid and gas collection representing an abscess 2.8 x 2.1 cm and the bony cortical outline and marrow defect suggests acute osteomyelitis. PHYSICAL EXAMINATION: GENERAL: She is a pleasant, healthy-looking female in no acute distress. VITAL SIGNS: Temperature 98.6, pulse 65, respirations 18, blood pressure 132/70, oxygen saturation 94% on room air. HEART: Normal S1, S2. No murmurs, rubs or gallops. Distant. LUNGS: Clear. No wheezes, rales or rhonchi. ABDOMEN: Obese, soft, nontender. Healed midline scar under the umbilicus. EXTREMITIES: +1 ankle edema bilaterally. Compression stocking on the left side very tight, causing pressure blister on the calf area. The compression stockings are removed. Right ankle large ulceration with calcanectomy. Ulcer measures about 6 x 4 cm x 2 cm depth with some black eschar tissue, but mostly clean granulation. No purulence. No foul-smelling or bloody discharge on the wound. 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 The patient also had Morganella bacteremia. She is currently on appropriate antibiotics. PLAN The patient will need six weeks of antibiotics. She will need a wound vacuum assisted closure (VAC) placement, which has been ordered by Dr. Bone. She will need a peripherally inserted central catheter (PICC) line in the next 1-2 days. The patient's family wants her placed in a detention where she can finish her IV antibiotic and do rehabilitation and probably will stay at a detention, as the family cannot take care of her. Based on results of bone culture, we will decide on antibiotics that the patient will need for the next six weeks. Please call me with results of bone culture, as I am not available for the next two weeks. For the time being, continue with IV vancomycin and Zosyn. Will de-escalate therapy based on bone culture. MTDD
--- NOTE | 2020-10-08 21:33 | IPN ---
PROGRESS NOTE Time of Visit: Approximately 5:30 P.M. DATE: 10/08/2020 CHIEF COMPLAINT: Patient seen at the bedside for evaluation status post resection of osteomyelitic bone right heel. OBJECTIVE: PHYSICAL EXAMINATION: LUNGS: No shortness of breath. CHEST: No chest pain. EXTREMITIES: The patient's bandage was removed. Good granulation tissue was forming along the wound bed. The calcaneus is visible in the wound. There is no calf tenderness. The wound measures approximately 6 cm by 4 cm by 2 cm in depth with the calcaneus visible. ASSESSMENT: Resection of osteomyelitic bone right foot. PLAN: Discussed with the patient utilizing a wound VAC with a white foam over the wound followed by a black foam bridging onto either the dorsum of the foot or the lower leg. Pressure 175 mm of mercury. Continuous pressure, medium intensity. Change Monday, Monday and Monday. Antibiotics will be covered by Dr. Arias, Infectious Disease Service. The patient's questions were answered. Discussed with the patient that I would be going out of town for two and a half weeks and Dr. Garcia will follow for any other podiatric care if needed.
[2020-10-09] MEDS: PIPERACILLIN/TAZOBACTAM SOD 3.375 GM in D5W MINI-BAG PLUS 50 ML IV SCH ×4 (03:52→21:27)
[2020-10-09 06:00] VITALS: BP 139/63
[2020-10-09 06:26] LABS: HEMOGLOBIN 8.3 g/dl (12.0-15.5); MEAN CORPUSCULAR HEMOGLOBIN 27.4 pg (27.0-33.0); MEAN CORPUSCULAR HGB CONC 30.7 g/dl (32.0-36.5); MEAN CORPUSCULAR VOLUME 89.1 fl (80.0-96.0); PLATELET COUNT, AUTOMATED 362 10^3/uL (150-450); RED BLOOD COUNT 3.03 10^6/uL (4.00-5.40); WHITE BLOOD COUNT 12.3 10^3/uL (4.0-10.0)
[2020-10-09 06:35] LABS: INR 1.21; PROTHROMBIN TIME 15.6 SECONDS (12.5-14.3)
[2020-10-09 06:54] LABS: C REACTIVE PROTEIN QUANTITATIV 9.22 MG/DL (0.00-0.30); CALCIUM LEVEL 8.6 MG/DL (8.8-10.2); CREATININE FOR GFR 1.35 MG/DL (0.55-1.30); GLOMERULAR FILTRATION RATE 41.6 (>45); POTASSIUM SERUM 4.9 MEQ/L (3.5-5.1)
[2020-10-09] MEDS: HumuLIN (NovoLIN)70/30 INSULIN INJ PER UNIT SC SCH ×2 (07:30→18:59)
[2020-10-09] MEDS: HumaLOG INSULIN (NovoLOG) PER UNIT SC SCH ×4 (07:30→21:00)
[2020-10-09 09:39] VITALS: BP 147/65
[2020-10-09] MEDS: ASCORBIC ACID 500 MG TAB PO SCH (09:53)
[2020-10-09] MEDS: CARVedilol 12.5 MG TAB PO SCH ×2 (09:53→21:24)
[2020-10-09] MEDS: PANTOPRAZOLE 40MG TAB (PROTONIX) PO SCH (09:53)
[2020-10-09] MEDS: MAGNESIUM OXIDE 400MG TAB (MAG-OX) PO SCH (09:53)
[2020-10-09] MEDS: FEBUXOSTAT 40 MG TABLET (ULORIC) PO SCH (09:53)
[2020-10-09] MEDS: VANCOMYCIN HCL 1,000 MG, VIAL MATE ADAPTER 1 EACH in NS 250 ML IV SCH (11:10)
--- NOTE | 2020-10-09 11:40 | IPNPDOC ---
Subjective Date Seen The patient was seen on 10/09/20. Subjective Chief Complaint/HPI No issues overnight. Feeling well. Objective Physical Examination General Exam: Positive: Alert, Cooperative, No Acute Distress Eye Exam: Positive: PERRLA, Conjunctiva & lids normal, EOMI; Negative: Sclera icteric Chest Exam: Positive: Clear to auscultation, Normal air movement Heart Exam: Positive: Rate Normal, Irregular Rhythm, Normal S1, Normal S2; Negative: Murmurs, Rubs Abdomen Exam: Positive: Normal bowel sounds, Soft; Negative: Tenderness Extremity Exam: Positive: Normal pulses; Negative: Clubbing, Cyanosis, Edema Skin Exam: Positive: Other skin issue (Large right heel pressure ulcer coverring the whole heel ) Assessment /Plan Assessment 65 yo Portuguese speaking W with a history of IDDM2 c/b diabetic neuropathy and retinopathy with a history of a chronic R heel wound that was found to be worse from prior and malodorous, necrotic and grown in size by Dr. Rashid, while also with significant PVD due for angioplasty to improve flow, by Dr. Maya, and now sent in for direct admission for treatment of her infected wound as well as expediting of IR PVD intervention with course now c/b noted fever. Infected RLE heel ulcer with acute osteomyelitis of the calcaneum s/p posterior resection of the right calcaneum on 10/07/[address] Bone, wound vac in place. Wound cultures both aerobic and anaerobic have been sent from the OR Wound cultures from the ED shows polymicrobial adolph; MRSA, Enterococcus faecalis, E. coli, Morganella Continue vanc and zosyn BCx 1/2 positive for Morganella As per ID will need 6 weeks of IV antibiotics. Will get a PICC line. Gram-negative bacteremia Blood culture positive for Morganella Possible peripheral arterial disease Plan for angiography of the lower extremity on October 12, 2020 DM: continue twice daily 70/30 insulin Fingerstick twice daily consistent carb diet HTN: will continue coreg 12.5 BID holding ACEi, bumex and amlodipine, to restart if BP rises and after labs return and renal function is evaluated Chronic Afib: hold warfarin given pending IR procedure. Will start on Lovenox daily INR s/p AICD Continue digoxin and Coreg HLD: continue gemfibrozil, febuxostat GERD: continue pantoprazole Systolic CHF Patient has an AICD in place We will hold KENNETH inhibitor and bumetanide Hyperuricemia/gout Uloric CKD stage III Baseline creatinine around 1.4 to 1.5 Creatinine at baseline Dispo: NH. Plan/VTE VTE Prophylaxis Ordered?: Yes VS, I&O, 24H, Fishbone Vital Signs/I&O Vital Signs Date Time Temp Pulse Resp B/P (MAP) Pulse Ox O2 Delivery O2 Flow Rate FiO2 10/09/20 06:00 97.8 60 20 139/63 (88) 98 Room Air I&O- Last 24 Hours up to 6 AM 10/09/20 06:00 Intake Total 1230 ml Output Total 1075 ml Balance 155 ml Laboratory Data 24H LABS Laboratory Tests 2 10/08/20 09:59: Vancomycin Level Trough 16.7 10/08/20 11:41: Bedside Glucose (Misc Panel) 120H 10/08/20 16:58: Bedside Glucose (Misc Panel) 112 10/08/20 20:20: Bedside Glucose (Misc Panel) 159H 10/09/20 05:27: Nucleated Red Blood Cells % (auto) 0.0, Prothrombin Time 15.6H, Prothromb Time International Ratio 1.21, Anion Gap 6L, Glomerular Filtration Rate 41.6L, Calcium Level 8.6L, C-Reactive Protein, Quantitative 9.22H CBC/BMP Laboratory Tests 10/09/20 05:27 Microbiology Microbiology 10/07/20 Anaerobic Culture, Received Pending 10/07/20 Wound Culture, Received Pending 10/06/20 Blood Culture - Preliminary, Resulted No Growth after 48 hours. All Specime... 10/05/20 Blood Culture - Final, Complete Morganella Morganii Ssp Sharif 10/05/20 Wound Culture - Final, Complete Escherichia Coli Morganella Morganii Ssp Sharif Enterococcus Faecalis Staph.aureus Methicillin Resis 10/05/20 Blood Culture - Preliminary, Resulted No Growth after 72 hours. All specime... BALDEMAR BOO MD Oct 09, 2020 08:27
[2020-10-09 14:00] VITALS: BP 145/63
[2020-10-09] MEDS ORDERED: FUROSEMIDE 40MG/4ML VIAL (J1940) IV ONE (15:25)
[2020-10-09] MEDS ORDERED: LIDOCAINE 1% MDV 20ML VIAL ONE (16:53)
--- NOTE | 2020-10-09 18:06 | IPN ---
NEPHROLOGY PROGRESS NOTE DATE: 10/09/2020 SUBJECTIVE: Analisa is seen and examined this morning sitting in the chair. She denies any complaints. No shortness of breath. No nausea, no vomiting, no diarrhea. Laboratory studies show a stable renal function and mildly worsening anemia. She is going to need a PICC line to get 6 weeks of IV antibiotics. OBJECTIVE: PHYSICAL EXAMINATION: VITAL SIGNS: Temperature 98, pulse 58, respiratory rate 18, blood pressure 145/63, saturating 100% on room air. GENERAL APPEARANCE: This patient is seen awake, alert, oriented, conversational in Grenadian, in no distress. HEENT: The extraocular muscles are intact. Tongue is moist. NECK: Supple. Jugular veins are not elevated while she is sitting upright. HEART: Irregular, S1, S2. There is a defibrillator this is prominent in the left chest wall. LUNGS: Symmetric air entry, clear to auscultation. No crackles, no rales. ABDOMEN: Soft and nontender. EXTREMITIES: Bulky legs and there does appear to be mild dependent edema today. There is a large right heel pressure ulcer and foot is in a waffle boot. NEUROLOGICAL: She is oriented x3, interactive, conversational. SKIN: Some pallor. LABORATORY STUDIES: Sodium 136, potassium 4.9, bicarbonate 27, BUN 21, creatinine 1.3, transferrin saturation 22%, CRP 9.2, hemoglobin 8.3, down from 10.6 on admission. CURRENT INPATIENT MEDICATIONS: I ordered Lasix 40 mg IV times one dose. She continues on IV Zosyn 3.375 grams IV q. 6 hourly. She continues on IV Vancomycin. Her Digoxin was stopped by the Primary Service. The remainder medications are unchanged as compared to yesterday. PROBLEMS: 1. Chronic kidney disease stage 3b baseline creatinine is around 1.4 to 1.5. Renal function has improved over the course of this admission. She had an acute kidney injury when she was initially admitted but now creatinine is at usual baseline. She looks a little mildly hypervolemic on exam. Diuretic has been held throughout her hospital stay. I am going to give one dose of IV Lasix today. Her angiogram has been postponed until October 12. 2. Hypertension - blood pressures are well controlled. Systolic is 130's to 140's and she continues on Carvedilol. I would keep her off of her home jay inhibitor at this time. 3. Anemia related to chronic kidney disease and chronic inflammatory state and mild iron deficiency. She is not suitable for IV iron at this time as she very recently had one positive blood culture. Anemia can also be a risk factor for dye induced nephropathy. If hemoglobin remains less than 8.5 by the weekend, would give consideration towards transfusion of one unit packed red blood cells prior to contrast exposure. 4. Infected right heel ulcer with osteomyelitis of the calcaneum - with wound cultures showing polymicrobial adolph and blood culture one out of two sets positive for Morganella. The patient is going to need to complete a 6-week course of IV antibiotic and is pending PICC line. She is presently on Vancomycin and Zosyn, managed by Primary Service with most recent Vancomycin trough 16 yesterday, and she is also pending angiogram on October 12 for evaluation of peripheral arterial disease and Nephrology will continue to follow in view of chronic kidney disease stage 3b and pending contrast exposure. 5. Systolic congestive heart failure one dose of IV Lasix is ordered for today. Continue to hold home jay inhibitor. Volume status will be reassessed daily.
--- NOTE | 2020-10-09 19:33 | REP ---
INDICATION: long course of antibiotics. COMPARISON: None. TECHNIQUE: The procedure was performed under the direct supervision of Dr. Dominguez. The risks and benefits of the procedure were explained to the patient and informed consent was obtained. The right basilic vein was localized using ultrasound guidance. The skin was prepped and draped in a sterile fashion. 1 mL of 1% lidocaine was used as a local anesthetic. Using ultrasound guidance the basilic vein was cannulated and a 0.018 guidewire was inserted and advanced to the SVC using fluoroscopic guidance, and last image hold technology. The needle was removed and a 4.5 Tajik dilator and peel-away sheath was inserted over the guide wire. A 4.5 Tajik single lumen catheter was cut to length of 40 cm. The dilator was removed and the catheter was inserted over the guide wire with the tip ending in the SVC. The peel-away sheath was removed and the catheter was flushed with heparinized saline as per Hospital protocol. The catheter was affixed to the skin and a sterile dressing was applied. Estimated blood loss: Less than 1 mL The patient tolerated the procedure well and there were no immediate complications. 0.1 minutes of fluoro time was utilized for this procedure. FINDINGS: None IMPRESSION: PICC line insertion right basilic vein with the tip ending in the SVC. <Electronically signed by Rasheed Salcido > 10/09/20 1839 <Electronically signed by Salvatore Dominguez > 10/09/20 192
[2020-10-09] MEDS: AMITRIPTYLINE 50 MG TAB PO SCH (21:24)
[2020-10-09 22:00] VITALS: BP 158/65
[2020-10-09] MEDS: SODIUM CHLORIDE 0.9% INJ 10 ML SYR IV PRN (22:45)
[2020-10-10] MEDS: PIPERACILLIN/TAZOBACTAM SOD 3.375 GM in D5W MINI-BAG PLUS 50 ML IV SCH ×4 (04:34→21:30)
[2020-10-10] MEDS: SODIUM CHLORIDE 0.9% INJ 10 ML SYR IV SCH ×2 (05:59→17:08)
[2020-10-10 06:00] VITALS: BP 147/65
[2020-10-10 06:08] LABS: HEMATOCRIT 25.3 % (36.0-47.0); HEMOGLOBIN 8.2 g/dl (12.0-15.5); MEAN CORPUSCULAR HEMOGLOBIN 28.5 pg (27.0-33.0); MEAN CORPUSCULAR HGB CONC 32.4 g/dl (32.0-36.5); MEAN CORPUSCULAR VOLUME 87.8 fl (80.0-96.0); PLATELET COUNT, AUTOMATED 362 10^3/uL (150-450); RED BLOOD COUNT 2.88 10^6/uL (4.00-5.40); WHITE BLOOD COUNT 12.2 10^3/uL (4.0-10.0)
[2020-10-10 06:18] LABS: INR 1.22; PROTHROMBIN TIME 15.9 SECONDS (12.7-14.5)
[2020-10-10 06:37] LABS: C REACTIVE PROTEIN QUANTITATIV 9.61 MG/DL (0.00-0.30); CALCIUM LEVEL 8.5 MG/DL (8.8-10.2); CREATININE FOR GFR 1.16 MG/DL (0.55-1.30); GLOMERULAR FILTRATION RATE 49.6 (>45); POTASSIUM SERUM 4.3 MEQ/L (3.5-5.1)
[2020-10-10] MEDS: HumaLOG INSULIN (NovoLOG) PER UNIT SC SCH (07:24)
[2020-10-10] MEDS: HumuLIN (NovoLIN)70/30 INSULIN INJ PER UNIT SC SCH ×2 (08:40→17:07)
[2020-10-10] MEDS: ENOXAPARIN 40MG/0.4ML SYRINGE (J1650 PER 10MG) SC SCH (08:40)
[2020-10-10] MEDS: FEBUXOSTAT 40 MG TABLET (ULORIC) PO SCH (08:41)
[2020-10-10] MEDS: PANTOPRAZOLE 40MG TAB (PROTONIX) PO SCH (08:41)
[2020-10-10] MEDS: CARVedilol 12.5 MG TAB PO SCH ×2 (08:41→21:24)
[2020-10-10] MEDS: ASCORBIC ACID 500 MG TAB PO SCH (08:41)
[2020-10-10] MEDS: VANCOMYCIN HCL 1,000 MG, VIAL MATE ADAPTER 1 EACH in NS 250 ML IV SCH (11:17)
--- NOTE | 2020-10-10 11:46 | IPNPDOC ---
Subjective Date Seen The patient was seen on 10/10/20. Subjective Chief Complaint/HPI No issues overnight. Objective Physical Examination General Exam: Positive: Alert, Cooperative, No Acute Distress Eye Exam: Positive: PERRLA, Conjunctiva & lids normal, EOMI; Negative: Sclera icteric Chest Exam: Positive: Clear to auscultation, Normal air movement Heart Exam: Positive: Rate Normal, Irregular Rhythm, Normal S1, Normal S2; Negative: Murmurs, Rubs Abdomen Exam: Positive: Normal bowel sounds, Soft; Negative: Tenderness Extremity Exam: Positive: Normal pulses; Negative: Clubbing, Cyanosis, Edema Skin Exam: Positive: Other skin issue (Large right heel pressure ulcer coverring the whole heel ) Assessment /Plan Assessment 65 yo Faroese speaking W with a history of IDDM2 c/b diabetic neuropathy and retinopathy with a history of a chronic R heel wound that was found to be worse from prior and malodorous, necrotic and grown in size by Dr. Rashid, while also with significant PVD due for angioplasty to improve flow, by Dr. Maya, and now sent in for direct admission for treatment of her infected wound as well as expediting of IR PVD intervention with course now c/b noted fever. Infected RLE heel ulcer with acute osteomyelitis of the calcaneum s/p posterior resection of the right calcaneum on 10/07/[address] Bone, wound vac in place. Wound cultures both aerobic and anaerobic have been sent from the OR Wound cultures from the ED shows polymicrobial adolph; MRSA, Enterococcus faecali s, E. coli, Morganella Continue vanc and zosyn BCx 1/2 positive for Morganella As per ID will need 6 weeks of IV antibiotics. Will get a PICC line. Gram-negative bacteremia Blood culture positive for Morganella Possible peripheral arterial disease Plan for angiography of the lower extremity on October 12, 2020 DM: continue twice daily 70/30 insulin Fingerstick twice daily consistent carb diet HTN: will continue coreg 12.5 BID holding ACEi, bumex and amlodipine, to restart if BP rises and after labs return and renal function is evaluated Chronic Afib: hold warfarin given pending IR procedure. Will start on Lovenox daily INR s/p AICD Continue digoxin and Coreg HLD: continue gemfibrozil, febuxostat GERD: continue pantoprazole Systolic CHF Patient has an AICD in place We will hold KENNETH inhibitor and bumetanide Hyperuricemia/gout Uloric CKD stage III Baseline creatinine around 1.4 to 1.5 Creatinine at baseline Plan/VTE VTE Prophylaxis Ordered?: Yes VS, I&O, 24H, Fishbone Vital Signs/I&O Vital Signs Date Time Temp Pulse Resp B/P (MAP) Pulse Ox O2 Delivery O2 Flow Rate FiO2 10/10/20 08:41 62 144/66 10/10/20 06:00 97.9 16 98 Room Air I&O- Last 24 Hours up to 6 AM 10/10/20 06:00 Intake Total 1510 ml Output Total 400 ml Balance 1110 ml Laboratory Data 24H LABS Laboratory Tests 2 10/09/20 18:28: Bedside Glucose (Misc Panel) 204H 10/09/20 21:02: Bedside Glucose (Misc Panel) 191H 10/10/20 02:32: Bedside Glucose (Misc Panel) 100 10/10/20 05:53: Nucleated Red Blood Cells % (auto) 0.0, Prothrombin Time 15.9H, Prothromb Time International Ratio 1.22, Anion Gap 6L, Glomerular Filtration Rate 49.6, Calcium Level 8.5L, C-Reactive Protein, Quantitative 9.61H 10/10/20 10:09: Vancomycin Level Trough 14.6 10/10/20 11:38: Bedside Glucose (Misc Panel) 164H CBC/BMP Laboratory Tests 10/10/20 05:53 Microbiology Microbiology 10/07/20 Anaerobic Culture, Received Pending 10/07/20 Wound Culture, Received Pending 10/06/20 Blood Culture - Preliminary, Resulted No Growth after 72 hours. All specime... 10/05/20 Blood Culture - Final, Complete Morganella Morganii Ssp Sharif 10/05/20 Wound Culture - Final, Complete Escherichia Coli Morganella Morganii Ssp Sharif Enterococcus Faecalis Staph.aureus Methicillin Resis 10/05/20 Blood Culture - Preliminary, Resulted No Growth after 72 hours. All specime... BALDEMAR BOO MD Oct 10, 2020 11:46
--- NOTE | 2020-10-10 13:19 | IPN ---
NEPHROLOGY PROGRESS NOTE DATE: 10/10/2020 SUBJECTIVE: Ms. Rome is seen this morning on her bedside. She has some communication barrier due to barrier. She can speak only a few words of Spanish; however, she was able to understand the questions. She is feeling better now and denies any dyspnea, chest pain, fever or chills. She is currently being treated for osteomyelitis on her right foot. PHYSICAL EXAMINATION: Temperature 97.9 degrees Fahrenheit, heart rate 62 per minute, respiratory rate 16 per minute, blood pressure 144/66 mmHg, oxygen saturation 98% on room air. HEAD: Atraumatic. NECK: Supple and without jugular venous distention (JVD) or thyroid enlargement. HEART SOUNDS: Regular. LUNGS: Clear to auscultation. ABDOMEN: Soft and nontender. Bowel sounds are present. EXTREMITIES: Without any cyanosis or clubbing. Right foot is in a foam boot and dressing. NEUROLOGIC: She seems grossly intact. LABORATORY DATA: Today's labs show WBC 12.2, hemoglobin 8.2, hematocrit 25.3. Sodium 135, potassium 4.3, BUN 23, creatinine 1.16, glucose 97, calcium 8.5. C-reactive protein is going up. It is 9.61. Vancomycin trough level today is 14.6. PROBLEMS: 1. Acute kidney injury superimposed on chronic kidney disease. Kidney function is gradually improving. Electrolytes are stable. She has been on vancomycin. However, vancomycin level is appropriate. 2. Anemia. Her anemia is unchanged and there is no need for any urgent intervention. She does have somewhat low iron; however, I will hold off on intravenous iron until her infection gets better. 3. Osteomyelitis, right foot. Patient remains afebrile on intravenous vancomycin and Zosyn.
[2020-10-10 14:00] VITALS: BP 139/67
[2020-10-10] MEDS: AMITRIPTYLINE 50 MG TAB PO SCH (21:24)
[2020-10-10 22:00] VITALS: BP 151/72
[2020-10-10] MEDS: SODIUM CHLORIDE 0.9% INJ 10 ML SYR IV PRN (23:19)
[2020-10-11] MEDS: PIPERACILLIN/TAZOBACTAM SOD 3.375 GM in D5W MINI-BAG PLUS 50 ML IV SCH ×4 (04:57→22:07)
[2020-10-11 06:00] VITALS: BP 131/60
[2020-10-11] MEDS: SODIUM CHLORIDE 0.9% INJ 10 ML SYR IV SCH ×2 (06:47→17:12)
[2020-10-11 07:07] LABS: INR 1.16; PROTHROMBIN TIME 15.2 SECONDS (12.7-14.5)
[2020-10-11 07:24] LABS: C REACTIVE PROTEIN QUANTITATIV 7.86 MG/DL (0.00-0.30)
[2020-10-11] MEDS: CARVedilol 12.5 MG TAB PO SCH ×2 (08:55→22:05)
[2020-10-11] MEDS: ENOXAPARIN 40MG/0.4ML SYRINGE (J1650 PER 10MG) SC SCH ×2 (09:00→09:04)
[2020-10-11] MEDS: FEBUXOSTAT 40 MG TABLET (ULORIC) PO SCH (09:04)
[2020-10-11] MEDS: HumuLIN (NovoLIN)70/30 INSULIN INJ PER UNIT SC SCH ×2 (09:04→17:12)
[2020-10-11] MEDS: PANTOPRAZOLE 40MG TAB (PROTONIX) PO SCH (09:04)
[2020-10-11] MEDS: ASCORBIC ACID 500 MG TAB PO SCH (09:04)
[2020-10-11] MEDS: MAGNESIUM OXIDE 400MG TAB (MAG-OX) PO SCH (09:04)
[2020-10-11] MEDS: VANCOMYCIN HCL 1,000 MG, VIAL MATE ADAPTER 1 EACH in NS 250 ML IV SCH (11:00)
--- NOTE | 2020-10-11 11:11 | IPNPDOC ---
Subjective Date Seen The patient was seen on 10/11/20. Subjective Chief Complaint/HPI No complaints this morning. No fever or chills. Blood pressure was low in the a.m. so Coreg was held. Patient was asymptomatic did not have any dizziness or lightheadedness. Objective Physical Examination General Exam: Positive: Alert, Cooperative, No Acute Distress Eye Exam: Positive: PERRLA, Conjunctiva & lids normal, EOMI; Negative: Sclera icteric Chest Exam: Positive: Clear to auscultation, Normal air movement Heart Exam: Positive: Rate Normal, Irregular Rhythm, Normal S1, Normal S2; Negative: Murmurs, Rubs Abdomen Exam: Positive: Normal bowel sounds, Soft; Negative: Tenderness Extremity Exam: Positive: Normal pulses; Negative: Clubbing, Cyanosis, Edema Skin Exam: Positive: Other skin issue (Large right heel pressure ulcer coverring the whole heel ) Assessment /Plan Assessment 65 yo Uruguayan speaking W with a history of IDDM2 c/b diabetic neuropathy and retinopathy with a history of a chronic R heel wound that was found to be worse from prior and malodorous, necrotic and grown in size by Dr. Rashid, while also with significant PVD due for angioplasty to improve flow, by Dr. Maya, and now sent in for direct admission for treatment of her infected wound as well as expediting of IR PVD intervention with course now c/b noted fever. Infected RLE heel ulcer with acute osteomyelitis of the calcaneum s/p posterior resection of the right calcaneum on 10/07/[address] Bone, wound vac in place. Wound cultures from OR. aerobic growing polymicrobial adolph and anaerobic culture negative Wound cultures from the ED shows polymicrobial adolph; MRSA, Enterococcus faecalis, E. coli, Morganella Continue vanc and zosyn BCx 1/2 positive for Morganella As per ID will need 6 weeks of IV antibiotics. PICC line in place Gram-negative bacteremia Blood culture positive for Morganella Peripheral arterial disease Plan for angiography of the lower extremity on October 12, 2020 DM: continue twice daily 70/30 insulin Fingerstick twice daily consistent carb diet HTN: will continue coreg 12.5 BID holding ACEi, bumex and amlodipine, to restart if BP rises and after labs return and renal function is evaluated Chronic Afib: hold warfarin given pending IR procedure. Will start on Lovenox daily INR s/p AICD Continue digoxin and Coreg HLD: continue gemfibrozil, febuxostat GERD: continue pantoprazole Systolic CHF Patient has an AICD in place We will hold KENNETH inhibitor and bumetanide Hyperuricemia/gout Uloric CKD stage III Baseline creatinine around 1.4 to 1.5 Creatinine at baseline Plan/VTE VTE Prophylaxis Ordered?: Yes VS, I&O, 24H, Fishbone Vital Signs/I&O Vital Signs Date Time Temp Pulse Resp B/P (MAP) Pulse Ox O2 Delivery O2 Flow Rate FiO2 10/11/20 08:55 60 88/52 10/11/20 06:00 96.6 16 100 Room Air I&O- Last 24 Hours up to 6 AM 10/11/20 06:00 Intake Total 1270 ml Output Total 0 ml Balance 1270 ml Laboratory Data 24H LABS Laboratory Tests 2 10/10/20 11:38: Bedside Glucose (Misc Panel) 164H 10/10/20 16:36: Bedside Glucose (Misc Panel) 192H 10/10/20 21:28: Bedside Glucose (Misc Panel) 146H 10/11/20 06:47: Prothrombin Time 15.2H, Prothromb Time International Ratio 1.16, C-Reactive Protein, Quantitative 7.86H 10/11/20 07:25: Bedside Glucose (Misc Panel) 92 Microbiology Microbiology 10/07/20 Anaerobic Culture - Final, Complete 10/07/20 Wound Culture - Final, Complete Morganella Morganii Ssp Sharif Escherichia Coli Enterococcus Faecalis 10/06/20 Blood Culture - Preliminary, Resulted No Growth after 72 hours. All specime... 10/05/20 Blood Culture - Final, Complete Morganella Morganii Ssp Sharif 10/05/20 Wound Culture - Final, Complete Escherichia Coli Morganella Morganii Ssp Sharif Enterococcus Faecalis Staph.aureus Methicillin Resis 10/05/20 Blood Culture - Final, Complete NO GROWTH AFTER 5 DAYS BALDEMAR BOO MD Oct 11, 2020 11:11
[2020-10-11 12:05] LABS: CALCIUM LEVEL 8.6 MG/DL (8.8-10.2); CREATININE FOR GFR 1.06 MG/DL (0.55-1.30); POTASSIUM SERUM 4.4 MEQ/L (3.5-5.1)
[2020-10-11 12:07] VITALS: BP 142/70
[2020-10-11 14:00] VITALS: BP 167/70
--- NOTE | 2020-10-11 17:02 | IPN ---
NEPHROLOGY PROGRESS NOTE DATE: 10/11/2020 SUBJECTIVE: Ms. Rome is seen for acute kidney injury. Her kidney function is improving and today her creatinine is down to 1.06. BUN is 25. She is being treated for osteomyelitis of her right foot. From a kidney standpoint, she is doing well and does not need followup at this point. I am signing off her case.
[2020-10-11 22:00] VITALS: BP 139/70
[2020-10-11] MEDS: AMITRIPTYLINE 50 MG TAB PO SCH (22:05)
[2020-10-12] VITALS (8 sets, daily range): BP systolic 133–165; BP diastolic 57–77
[2020-10-12] MEDS: PIPERACILLIN/TAZOBACTAM SOD 3.375 GM in D5W MINI-BAG PLUS 50 ML IV SCH ×4 (04:35→21:05)
[2020-10-12] MEDS: SODIUM CHLORIDE 0.9% INJ 10 ML SYR IV SCH ×2 (05:50→17:28)
[2020-10-12 06:19] LABS: BASO # 0.1 10^3/uL (0.0-0.2); BASO % 1.2 % (0.0-1.0); EOS # 0.4 10^3/uL (0.0-0.5); EOS % 4.2 % (0.0-3.0); HEMATOCRIT 27.6 % (36.0-47.0); HEMOGLOBIN 8.6 g/dl (12.0-15.5); LYMPH # 1.9 10^3/uL (1.5-5.0); LYMPH % 20.4 % (24.0-44.0); MEAN CORPUSCULAR HEMOGLOBIN 27.7 pg (27.0-33.0); MEAN CORPUSCULAR HGB CONC 31.2 g/dl (32.0-36.5); MEAN CORPUSCULAR VOLUME 88.7 fl (80.0-96.0); MONO # 1.2 10^3/uL (0.0-0.8); MONO % 12.2 % (2.0-8.0); NEUTROPHILS # 5.7 10^3/uL (1.5-8.5); NEUTROPHILS % 60.4 % (36.0-66.0); PLATELET COUNT, AUTOMATED 447 10^3/uL (150-450); RED BLOOD COUNT 3.11 10^6/uL (4.00-5.40); WHITE BLOOD COUNT 9.4 10^3/uL (4.0-10.0)
[2020-10-12 06:21] LABS: BASO # 0.1 10^3/uL (0.0-0.2); BASO % 0.8 % (0.0-1.0); EOS # 0.4 10^3/uL (0.0-0.5); EOS % 4.1 % (0.0-3.0); HEMATOCRIT 24.3 % (36.0-47.0); HEMOGLOBIN 7.8 g/dl (12.0-15.5); LYMPH # 1.9 10^3/uL (1.5-5.0); LYMPH % 20.7 % (24.0-44.0); MEAN CORPUSCULAR HEMOGLOBIN 28.5 pg (27.0-33.0); MEAN CORPUSCULAR HGB CONC 32.1 g/dl (32.0-36.5); MEAN CORPUSCULAR VOLUME 88.7 fl (80.0-96.0); MONO % 11.3 % (2.0-8.0); NEUTROPHILS # 5.7 10^3/uL (1.5-8.5); NEUTROPHILS % 61.7 % (36.0-66.0); PLATELET COUNT, AUTOMATED 420 10^3/uL (150-450); RED BLOOD COUNT 2.74 10^6/uL (4.00-5.40); WHITE BLOOD COUNT 9.2 10^3/uL (4.0-10.0)
[2020-10-12 06:29] LABS: INR 1.14; PROTHROMBIN TIME 15.1 SECONDS (12.7-14.5)
[2020-10-12 06:36] LABS: INR 1.17; PROTHROMBIN TIME 15.4 SECONDS (12.7-14.5)
[2020-10-12 06:46] LABS: CALCIUM LEVEL 8.9 MG/DL (8.8-10.2); CREATININE FOR GFR 1.16 MG/DL (0.55-1.30); GLOMERULAR FILTRATION RATE 49.6 (>45); POTASSIUM SERUM 4.6 MEQ/L (3.5-5.1)
[2020-10-12 06:49] LABS: C REACTIVE PROTEIN QUANTITATIV 6.37 MG/DL (0.00-0.30); CALCIUM LEVEL 9.3 MG/DL (8.8-10.2); CREATININE FOR GFR 1.23 MG/DL (0.55-1.30); GLOMERULAR FILTRATION RATE 46.4 (>45); POTASSIUM SERUM 5.1 MEQ/L (3.5-5.1)
[2020-10-12] MEDS: HumuLIN (NovoLIN)70/30 INSULIN INJ PER UNIT SC SCH ×2 (07:30→17:27)
[2020-10-12] MEDS ORDERED: fentaNYL 100 MCG/2 ML INJECTION (J3010) As Ordered ONE ×2 (08:03→08:36)
[2020-10-12] MEDS ORDERED: diphenhydrAMINE 50MG/ML VIAL (J1200) As Ordered ONE (08:03)
[2020-10-12] MEDS ORDERED: LIDOCAINE 1% MDV 20ML VIAL As Ordered ONE (08:04)
[2020-10-12] MEDS ORDERED: MIDAZOLAM INJ 2MG/2ML VIAL (J2250 PER 1MG) As Ordered ONE ×2 (08:05→08:36)
[2020-10-12] MEDS ORDERED: ISOVUE-300 61% 50ML VIAL ONE (08:34)
--- NOTE | 2020-10-12 08:34 | IRHP ---
[facility] IR Pre-Procedure H & P General Date of Service: Oct 12, 2020 Procedure: Same Day Surgery Interval History and Physical I have seen the patient and reviewed last H & P performed within 30 days. There is no significant interval change. History of Present Illness Chief Complaint The patient is a 65-year-old female admitted with a reason for visit of R Diabetic Heel Ulcer. PRE-PROCEDURE DIAGNOSIS: PAD HEART: Normal rate. LUNGS: Normal breathing at rest. ASA Classification ASA Classification: III-Severe systemic dis. Mallampati Score: II NPO: Yes Problems with prior sedation: No Obstructive Sleep Apnea: No Plan moderate sedation Allergies Coded Allergies: No Known Allergies (Unverified , 10/05/20) Home Medications Scheduled Amitriptyline HCl (Amitriptyline HCl), 50 MG PO QHS, (Reported) Amlodipine Besylate (Amlodipine Besylate), 2.5 MG PO DAILY, (Reported) Ascorbic Acid (Ascorbic Acid), 500 MG PO DAILY, (Reported) Bumetanide (Bumetanide), 1 MG PO DAILY, (Reported) Carvedilol (Carvedilol), 12.5 MG PO BID, (Reported) Digoxin (Digoxin), 250 MCG PO DAILY, (Reported) Febuxostat (Febuxostat), 40 MG PO DAILY, (Reported) Gemfibrozil (Lopid), 600 MG PO BID, (Reported) Insulin NPH Hum/Reg Insulin Hm (Humulin 70-30 Vial), 50 UNITS SC DAILY, (Reported) Insulin NPH Hum/Reg Insulin Hm (Humulin 70-30 Vial), 30 UNITS SC QHS, (Reported) Lisinopril (Lisinopril), 10 MG PO DAILY, (Reported) Magnesium Oxide (Magnesium Oxide), 400 MG PO Q2D, (Reported) Metformin HCl (Metformin HCl), 500 MG PO BIDWM, (Reported) Pantoprazole Sodium (Pantoprazole Sodium), 40 MG PO DAILY, (Reported) Warfarin Sodium (Warfarin Sodium), 3 MG PO QHS, (Reported) VS, I&O, 24H, Fishbone Vital Signs/I&O Vital Signs Date Time Temp Pulse Resp B/P (MAP) Pulse Ox O2 Delivery O2 Flow Rate FiO2 10/12/20 07:55 97.8 80 18 100 Room Air 10/12/20 06:00 133/57 (82) I&O- Last 24 Hours up to 6 AM 10/12/20 06:00 Intake Total 2120 ml Balance 2120 ml Laboratory Data 24H LABS Laboratory Tests 2 10/11/20 12:02: Bedside Glucose (Misc Panel) 182H 10/11/20 16:28: Bedside Glucose (Misc Panel) 177H 10/11/20 21:55: Bedside Glucose (Misc Panel) 160H 10/12/20 05:33: Immature Granulocyte % (Auto) 1.6, Neutrophils (%) (Auto) 60.4, Lymphocytes (%) (Auto) 20.4L, Monocytes (%) (Auto) 12.2H, Eosinophils (%) (Auto) 4.2H, Basophils (%) (Auto) 1.2H, Neutrophils # (Auto) 5.7, Lymphocytes # (Auto) 1.9, Monocytes # (Auto) 1.2H, Eosinophils # (Auto) 0.4, Basophils # (Auto) 0.1, Nucleated Red Blood Cells % (auto) 0.0, Prothrombin Time 15.1H, Prothromb Time International Ratio 1.14, Anion Gap 6L, Glomerular Filtration Rate 46.4, Calcium Level 9.3, C- Reactive Protein, Quantitative 6.37H 10/12/20 06:00: Immature Granulocyte % (Auto) 1.4, Neutrophils (%) (Auto) 61.7, Lymphocytes (%) (Auto) 20.7L, Monocytes (%) (Auto) 11.3H, Eosinophils (%) (Auto) 4.1H, Basophils (%) (Auto) 0.8, Neutrophils # (Auto) 5.7, Lymphocytes # (Auto) 1.9, Monocytes # (Auto) 1.0H, Eosinophils # (Auto) 0.4, Basophils # (Auto) 0.1, Nucleated Red Blood Cells % (auto) 0.0, Prothrombin Time 15.4H, Prothromb Time International Ratio 1.17, Anion Gap 6L, Glomerular Filtration Rate 49.6, Calcium Level 8.9 CBC/BMP Laboratory Tests 10/12/20 05:33 10/12/20 06:00 Microbiology Microbiology 10/07/20 Anaerobic Culture - Final, Complete 10/07/20 Wound Culture - Final, Complete Morganella Morganii Ssp Sharif Escherichia Coli Enterococcus Faecalis 10/06/20 Blood Culture - Final, Complete NO GROWTH AFTER 5 DAYS 10/05/20 Blood Culture - Final, Complete Morganella Morganii Ssp Sharif 10/05/20 Wound Culture - Final, Complete Escherichia Coli Morganella Morganii Ssp Sharif Enterococcus Faecalis Staph.aureus Methicillin Resis 10/05/20 Blood Culture - Final, Complete NO GROWTH AFTER 5 DAYS GURVINDER SPENCE MD Oct 12, 2020 08:34
[2020-10-12] MEDS: ENOXAPARIN 40MG/0.4ML SYRINGE (J1650 PER 10MG) SC SCH (09:00)
--- NOTE | 2020-10-12 10:59 | IPNPDOC ---
Subjective Date Seen The patient was seen on 10/12/20. Subjective Chief Complaint/HPI No issues overnight. Going to IR today for lower extremity angiogram. Objective Physical Examination General Exam: Positive: Alert, Cooperative, No Acute Distress Eye Exam: Positive: PERRLA, Conjunctiva & lids normal, EOMI; Negative: Sclera icteric Chest Exam: Positive: Clear to auscultation, Normal air movement Heart Exam: Positive: Rate Normal, Irregular Rhythm, Normal S1, Normal S2; Negative: Murmurs, Rubs Abdomen Exam: Positive: Normal bowel sounds, Soft; Negative: Tenderness Extremity Exam: Positive: Normal pulses; Negative: Clubbing, Cyanosis, Edema Skin Exam: Positive: Other skin issue (Large right heel pressure ulcer coverring the whole heel ) Assessment /Plan Assessment 65 yo Luxembourgish speaking W with a history of IDDM2 c/b diabetic neuropathy and retinopathy with a history of a chronic R heel wound that was found to be worse from prior and malodorous, necrotic and grown in size by Dr. Rashid, while also with significant PVD due for angioplasty to improve flow, by Dr. Maya, and now sent in for direct admission for treatment of her infected wound as well as expediting of IR PVD intervention with course now c/b noted fever. Infected RLE heel ulcer with acute osteomyelitis of the calcaneum s/p posterior resection of the right calcaneum on 10/07/[address] Bone, wound vac in place. Wound cultures from OR. aerobic growing polymicrobial adolph and anaerobic culture negative Wound cultures from the ED shows polymicrobial adolph; MRSA, Enterococcus faecalis, E. coli, Morganella Continue vanc and zosyn BCx 1/2 positive for Morganella As per ID will need 6 weeks of IV antibiotics. PICC line in place Speak with ID for final antibiotic recommendations. Gram-negative bacteremia Blood culture positive for Morganella Peripheral arterial disease Plan for angiography of the lower extremity on October 12, 2020 DM: continue twice daily 70/30 insulin Fingerstick twice daily consistent carb diet HTN: will continue coreg 12.5 BID holding ACEi, bumex and amlodipine, to restart if BP rises and after labs return and renal function is evaluated Chronic Afib: hold warfarin given pending IR procedure. Will start on Lovenox daily INR s/p AICD Continue digoxin and Coreg HLD: continue gemfibrozil, febuxostat GERD: continue pantoprazole Systolic CHF Patient has an AICD in place We will hold KENNETH inhibitor and bumetanide Hyperuricemia/gout Uloric CKD stage III Baseline creatinine around 1.4 to 1.5 Creatinine at baseline Dispo: Sub acute rehab. Plan/VTE VTE Prophylaxis Ordered?: Yes VS, I&O, 24H, Fishbone Vital Signs/I&O Vital Signs Date Time Temp Pulse Resp B/P (MAP) Pulse Ox O2 Delivery O2 Flow Rate FiO2 10/12/20 10:15 60 18 100 Nasal Cannula 2.0 10/12/20 07:55 97.8 10/12/20 06:00 133/57 (82) I&O- Last 24 Hours up to 6 AM 10/12/20 06:00 Intake Total 2120 ml Balance 2120 ml Laboratory Data 24H LABS Laboratory Tests 2 10/11/20 12:02: Bedside Glucose (Misc Panel) 182H 10/11/20 16:28: Bedside Glucose (Misc Panel) 177H 10/11/20 21:55: Bedside Glucose (Misc Panel) 160H 10/12/20 05:33: Immature Granulocyte % (Auto) 1.6, Neutrophils (%) (Auto) 60.4, Lymphocytes (%) (Auto) 20.4L, Monocytes (%) (Auto) 12.2H, Eosinophils (%) (Auto) 4.2H, Basophils (%) (Auto) 1.2H, Neutrophils # (Auto) 5.7, Lymphocytes # (Auto) 1.9, Monocytes # (Auto) 1.2H, Eosinophils # (Auto) 0.4, Basophils # (Auto) 0.1, Nucleated Red Blood Cells % (auto) 0.0, Prothrombin Time 15.1H, Prothromb Time International Ratio 1.14, Anion Gap 6L, Glomerular Filtration Rate 46.4, Calcium Level 9.3, C- Reactive Protein, Quantitative 6.37H 10/12/20 06:00: Immature Granulocyte % (Auto) 1.4, Neutrophils (%) (Auto) 61.7, Lymphocytes (%) (Auto) 20.7L, Monocytes (%) (Auto) 11.3H, Eosinophils (%) (Auto) 4.1H, Basophils (%) (Auto) 0.8, Neutrophils # (Auto) 5.7, Lymphocytes # (Auto) 1.9, Monocytes # (Auto) 1.0H, Eosinophils # (Auto) 0.4, Basophils # (Auto) 0.1, Nucleated Red Blood Cells % (auto) 0.0, Prothrombin Time 15.4H, Prothromb Time International Ratio 1.17, Anion Gap 6L, Glomerular Filtration Rate 49.6, Calcium Level 8.9 CBC/BMP Laboratory Tests 10/12/20 05:33 10/12/20 06:00 Microbiology Microbiology 10/07/20 Anaerobic Culture - Final, Complete 10/07/20 Wound Culture - Final, Complete Morganella Morganii Ssp Sharif Escherichia Coli Enterococcus Faecalis 10/06/20 Blood Culture - Final, Complete NO GROWTH AFTER 5 DAYS 10/05/20 Blood Culture - Final, Complete Morganella Morganii Ssp Sharif 10/05/20 Wound Culture - Final, Complete Escherichia Coli Morganella Morganii Ssp Sharif Enterococcus Faecalis Staph.aureus Methicillin Resis 10/05/20 Blood Culture - Final, Complete NO GROWTH AFTER 5 DAYS BALDEMAR BOO MD Oct 12, 2020 10:59
[2020-10-12] MEDS: ASCORBIC ACID 500 MG TAB PO SCH (11:15)
[2020-10-12] MEDS: FEBUXOSTAT 40 MG TABLET (ULORIC) PO SCH (11:15)
[2020-10-12] MEDS: CARVedilol 12.5 MG TAB PO SCH ×2 (11:16→21:05)
[2020-10-12] MEDS: PANTOPRAZOLE 40MG TAB (PROTONIX) PO SCH (11:16)
[2020-10-12 12:21] LABS: CALCIUM LEVEL 8.5 MG/DL (8.8-10.2); CREATININE FOR GFR 1.1 MG/DL (0.55-1.30); GLOMERULAR FILTRATION RATE 52.7 (>45); POTASSIUM SERUM 4.9 MEQ/L (3.5-5.1); VANCOMYCIN LEVEL TROUGH 12.7 UG/ML (10.0-20.0)
[2020-10-12] MEDS: VANCOMYCIN HCL 1,000 MG, VIAL MATE ADAPTER 1 EACH in NS 250 ML IV SCH (12:55)
[2020-10-12] MEDS: AMITRIPTYLINE 50 MG TAB PO SCH (21:05)
[2020-10-12] MEDS: SODIUM CHLORIDE 0.9% INJ 10 ML SYR IV PRN (22:24)
[2020-10-13] VITALS (7 sets, daily range): BP systolic 131–153; BP diastolic 62–82
[2020-10-13] MEDS: PIPERACILLIN/TAZOBACTAM SOD 3.375 GM in D5W MINI-BAG PLUS 50 ML IV SCH ×4 (03:35→21:08)
[2020-10-13] MEDS: SODIUM CHLORIDE 0.9% INJ 10 ML SYR IV SCH ×2 (05:21→19:27)
[2020-10-13 05:40] LABS: HEMATOCRIT 24.2 % (36.0-47.0); HEMOGLOBIN 7.6 g/dl (12.0-15.5); MEAN CORPUSCULAR HEMOGLOBIN 27.9 pg (27.0-33.0); MEAN CORPUSCULAR HGB CONC 31.4 g/dl (32.0-36.5); PLATELET COUNT, AUTOMATED 388 10^3/uL (150-450); RED BLOOD COUNT 2.72 10^6/uL (4.00-5.40); WHITE BLOOD COUNT 9.4 10^3/uL (4.0-10.0)
[2020-10-13 06:14] LABS: CALCIUM LEVEL 8.6 MG/DL (8.8-10.2); CREATININE FOR GFR 1.06 MG/DL (0.55-1.30); POTASSIUM SERUM 4.7 MEQ/L (3.5-5.1)
[2020-10-13 06:15] LABS: BASOPHILS 3 % (0-1); EOSINOPHILS 6 % (0-3); LYMPHOCYTES 26 % (16-44); MONOCYTES 9 % (0-5); NEUTROPHILS 56 % (28-66)
[2020-10-13 06:17] LABS: PLATELET ESTIMATE NORMAL (NORMAL)
[2020-10-13] MEDS: CARVedilol 12.5 MG TAB PO SCH ×2 (08:39→21:09)
[2020-10-13] MEDS: PANTOPRAZOLE 40MG TAB (PROTONIX) PO SCH (08:40)
[2020-10-13] MEDS: HumuLIN (NovoLIN)70/30 INSULIN INJ PER UNIT SC SCH ×2 (08:40→17:47)
[2020-10-13] MEDS: MAGNESIUM OXIDE 400MG TAB (MAG-OX) PO SCH (08:40)
[2020-10-13] MEDS: ASCORBIC ACID 500 MG TAB PO SCH (08:40)
[2020-10-13] MEDS: FEBUXOSTAT 40 MG TABLET (ULORIC) PO SCH (08:40)
[2020-10-13] MEDS: ENOXAPARIN 40MG/0.4ML SYRINGE (J1650 PER 10MG) SC SCH (08:41)
--- NOTE | 2020-10-13 09:04 | IRPON ---
IR Postoperative Note Date Of Procedure: Oct 12, 2020 Time Of Procedure: 16:00 IR Postoperative Note IR Right leg angiogram IR Right below-knee runoff arteriogram. IR Ultrasound-guided left common femoral artery access. IR Superficial femoral artery angioplasty. IR Posterior tibial artery recanalization. IR Posterior tibial artery angioplasty. IR Moderate sedation. Clinical Information:Chronic peripheral vascular disease with Nonhealing right heel wound. Physician: Dr. Maya. Procedure: The patient was advised of the benefits, risks, and alternatives of the procedure and informed consent was obtained. A time out was performed with verification of the patient's name, MRN, site of procedure, and type of procedure to be performed. The patient was positioned in the supine position on the angiographic table. The site was prepped and draped in the usual sterile fashion. Moderate sedation was performed by the physician including the presence of an independent trained RN, who assisted in monitoring the patient's level of consciousness and physiological status. Following the administration of fentanyl and Versed, the physician spent 90 minutes of continuous [id number] time with the patient. A refrigerator assembler radiograph reveals no gross abnormality. Ultrasound of the left groin demonstrates patent left common femoral artery. Lidocaine was used for local anesthesia. The left common femoral artery was accessed, under ultrasound guidance with a microintroducer set. A short 0.018" [place] wire was inserted under fluoroscopy guidance and the needle was exchanged for a 4 Fr microintroducer sheath. The guidewire and dilator were removed and a 0.035" Bentson wire, was advanced under fluoroscopy guidance and placed in the abdominal aorta. A 6 Fr sheath was placed over the wire. An Omni flush catheter was advanced over the wire, under fluoroscopy guidance and used to catheterize the infrarenal abdominal aorta. A pelvic arteriogram was performed and this demonstrates unremarkable infrarenal abdominal aorta, patent bilateral common iliac, internal iliac and external iliac arteries. Patent bilateral common femoral, proximal superficial femoral and profunda femoris. A wire was advanced through the flush catheter and used to gain up and over access into the right common iliac artery. The catheter was removed over the wire. A glide cath was advanced over the wire, under fluoroscopy guidance and used catheterize the right common femoral artery. A right leg angiogram was performed. This demonstrates patent right proximal and mid superficial femoral artery. Patent profunda femoris. Greater than 95% focal stenosis in the distal right superficial femoral artery. Angiography further down the right leg was performed and this demonstrates patent popliteal artery. Patient proximal anterior tibial, tibioperoneal trunk, proximal peroneal and proximal posterior tibial artery. Greater than 90% focal stenosis in the proximal third of the right posterior tibial artery. Further runoff arteriogram to the right foot was performed. This demonstrates multifocal stenosis and occlusion in the mid and distal right posterior tibial artery with no significant contribution to the right heel. Patent anterior tibial artery. Patent peroneal artery. Micro-vascular disease in the right foot. An Amplatz wire was advanced through the diagnostic catheter, under fluoroscopy guidance and the catheter was removed over the wire. The short sheath was exchanged over the wire, for a 6 [place] 45 cm destination sheath. The destination sheath was advanced over the wire, under fluoroscopy guidance and positioned in the proximal right superficial femoral artery. A glide cath was advanced over the wire, under fluoroscopy guidance and used to catheterize the mid superficial femoral artery. The catheter in conjunction with a glide wire was then used to selectively catheterize the popliteal artery. Intermittent injection of contrast confirmed intraluminal location. The catheter was removed over the wire. A 6 x 40 mm [place] angioplasty balloon was then advanced over the wire, under fluoroscopy guidance and positioned at the focal area of greater than 95% distal SFA stenosis. Angioplasty was performed. Heparin was administered. The balloon was deflated and a post angioplasty follow-up arteriogram was performed through the groin sheath. This demonstrates resolution of focal distal right superficial femoral stenosis post angioplasty, with good antegrade flow into the popliteal artery. No extravasation, arterial spasm or distal emboli. A [place] wire was advanced through the angioplasty balloon catheter, under fluoroscopy guidance and positioned in the popliteal artery. The angioplasty balloon catheter was removed over the wire. An 018 [place] microcatheter was then advanced over the wire, under fluoroscopy guidance and used to sub selectively catheterize the distal right popliteal artery. A below-knee runoff arteriogram was performed, and this demonstrates patent distal popliteal artery, anterior tibial artery, tibia peroneal trunk, proximal peroneal and the origin of the posterior tibial artery. The microcatheter in conjunction with the microwire was then used to sub selectively catheterize the right posterior tibial artery. Intermittent injection of contrast confirmed intraluminal location. The micro-catheter in conjunction with the micro-wire was used to recanalize the multi focal occlusions in the mid and distal right posterior tibial artery and selectively catheterize the distal right posterior tibial artery. An arteriogram was performed from this location and this demonstrates antegrade flow into the right foot, and patent calcaneal, plantar branches, arising off the distal posterior tibial artery. The catheter was removed over the wire. A 3 x 220 mm Jimy balloon was then advanced over the wire, under fluoroscopic guidance and positioned in the right posterior tibial artery. Angioplasty was performed. The balloon was then deflated. A follow-up post angioplasty arteriogram was performed, through the groin sheath. This demonstrates there is now good 3 vessel flow to the right foot. Resolution of multifocal stenosis and occlusion in the right posterior tibial artery. A completion angiogram with magnification was performed of the right foot. This demonstrates rapid antegrade flow into the right foot with improved 3 vessel runoff into the right foot. Catheter, wire and sheath were removed, a 6 [place] Mynx device was used to close the left groin arteriotomy. Pressure held and hemostasis achieved. A sterile dressing was applied to the site. The patient tolerated the procedure well and was returned to the PRU in stable condition. EBL: < 5 mL. Complications:None. Impression: 1. Right leg angiogram demonstrates focal greater than 95% stenosis in the distal superficial femoral artery. 2. Multifocal stenosis and occlusion in the proximal, mid and distal right posterior tibial artery. Patent anterior tibial artery and peroneal artery. 3. Successful right-sided superficial femoral artery angioplasty with resolution of stenosis. 4. Successful right posterior tibial artery recanalization and angioplasty with resolution of occlusions and stenosis and improved blood flow into the right foot. Thank you for this referral. Cc GURVINDER Mehta MD Oct 13, 2020 09:04
--- NOTE | 2020-10-13 13:12 | IPNPDOC ---
Text Note Date of Service The patient was seen on 10/13/20. NOTE Subjective: Patient seen and examined at bedside. No acute overnight events reported. No new medical complaints this morning. Objective: General: NAD, lying comfortably in bed HEENT: NC/AT, EOMI Chest: lungs CTA B/L, PPM in left subclav pocket Heart: +S1S2, RRR Abd: soft, NT, +BS Ext: no edema Neuro: no gross focal deficits Psych: AAOx3 A/P: 65 yo Uzbek speaking W with a history of IDDM2 c/b diabetic neuropathy and retinopathy with a history of a chronic R heel wound that was found to be worse from prior and malodorous, necrotic and grown in size by Dr. Rashid, while also with significant PVD due for angioplasty to improve flow, by Dr. Maya, and now sent in for direct admission for treatment of her infected wound as well as expediting of IR PVD intervention with course now c/b noted fever. #Infected RLE heel ulcer with acute osteomyelitis of the calcaneum s/p posterior resection of the right calcaneum on 10/07/[address] Bone, wound vac in place. Wound cultures from OR. aerobic growing polymicrobial adolph and anaerobic culture negative Wound cultures from the ED shows polymicrobial adolph; MRSA, Enterococcus faecalis, E. coli, Morganella Continue zosyn BCx 1/3 positive for Morganella, 2 others are no growth/final As per ID will need 6 weeks of IV antibiotics. PICC line in place #Gram-negative bacteremia Blood culture positive for Morganella #Peripheral arterial disease Plan for angiography of the lower extremity on October 12, 2020 #DM: continue twice daily 70/30 insulin Fingerstick twice daily consistent carb diet #HTN: will continue coreg 12.5 BID holding ACEi, bumex and amlodipine, to restart if BP rises and after labs return and renal function is evaluated #Chronic Afib: warfarin previous held due to IR procedure - previously placed on Lovenox Continue digoxin and Coreg #HLD: continue gemfibrozil, febuxostat #GERD: continue pantoprazole #Systolic CHF Patient has an AICD in place We will hold KENNETH inhibitor and bumetanide #Hyperuricemia/gout Uloric #CKD stage III Baseline creatinine around 1.4 to 1.5 Creatinine at baseline Dispo: Sub acute rehab. VS,Fishbone, I+O VS, Fishbone, I+O Laboratory Tests 10/13/20 05:30 Vital Signs Date Time Temp Pulse Resp B/P (MAP) Pulse Ox O2 Delivery O2 Flow Rate FiO2 10/13/20 10:00 97.8 58 21 142/63 (89) 99 Room Air 10/12/20 10:15 2.0 I&O- Last 24 Hours up to 6 AM 10/13/20 06:00 Intake Total 1580 ml Output Total 0 ml Balance 1580 ml AMY BRADY MD Oct 13, 2020 13:12
[2020-10-13 19:53] LABS: HEMATOCRIT 24.4 % (36.0-47.0); HEMOGLOBIN 7.6 g/dl (12.0-15.5)
[2020-10-13] MEDS: AMITRIPTYLINE 50 MG TAB PO SCH (21:08)
[2020-10-14] MEDS: PIPERACILLIN/TAZOBACTAM SOD 3.375 GM in D5W MINI-BAG PLUS 50 ML IV SCH ×4 (03:19→21:20)
[2020-10-14] MEDS: SODIUM CHLORIDE 0.9% INJ 10 ML SYR IV SCH ×2 (05:28→18:09)
[2020-10-14 05:51] LABS: HEMATOCRIT 23.4 % (36.0-47.0); HEMOGLOBIN 7.2 g/dl (12.0-15.5); MEAN CORPUSCULAR HEMOGLOBIN 27.4 pg (27.0-33.0); MEAN CORPUSCULAR HGB CONC 30.8 g/dl (32.0-36.5); PLATELET COUNT, AUTOMATED 376 10^3/uL (150-450); RED BLOOD COUNT 2.63 10^6/uL (4.00-5.40); WHITE BLOOD COUNT 9.4 10^3/uL (4.0-10.0)
[2020-10-14 06:00] VITALS: BP 157/73
[2020-10-14 06:12] LABS: CALCIUM LEVEL 8.8 MG/DL (8.8-10.2); CREATININE FOR GFR 1.07 MG/DL (0.55-1.30); GLOMERULAR FILTRATION RATE 54.5 (>45); POTASSIUM SERUM 4.5 MEQ/L (3.5-5.1)
[2020-10-14 06:27] LABS: EOSINOPHILS 4 % (0-3); LYMPHOCYTES 21 % (16-44); MONOCYTES 10 % (0-5); NEUTROPHILS 65 % (28-66); PLATELET ESTIMATE NORMAL (NORMAL)
[2020-10-14] MEDS: HumuLIN (NovoLIN)70/30 INSULIN INJ PER UNIT SC SCH ×2 (08:15→18:08)
[2020-10-14] MEDS: FEBUXOSTAT 40 MG TABLET (ULORIC) PO SCH (08:16)
[2020-10-14] MEDS: CARVedilol 12.5 MG TAB PO SCH ×2 (08:16→21:20)
[2020-10-14] MEDS: ASCORBIC ACID 500 MG TAB PO SCH (08:16)
[2020-10-14] MEDS: PANTOPRAZOLE 40MG TAB (PROTONIX) PO SCH (08:16)
[2020-10-14 10:00] VITALS: BP 126/61
--- NOTE | 2020-10-14 10:07 | IPNPDOC ---
Text Note Date of Service The patient was seen on 10/14/20. NOTE Subjective: Patient seen and examined at bedside. No acute overnight events reported. No new medical complaints this morning. . She denies chest pain, shortness of breath, dizziness or headaches. Objective: General: NAD, lying comfortably in bed HEENT: NC/AT, EOMI Chest: lungs CTA B/L, PPM in left subclav pocket Heart: +S1S2, RRR Abd: soft, NT, +BS Ext: no edema Neuro: no gross focal deficits Psych: AAOx3 A/P: 65 yo Japanese speaking W with a history of IDDM2 c/b diabetic neuropathy and retinopathy with a history of a chronic R heel wound that was found to be worse from prior and malodorous, necrotic and grown in size by Dr. Rashid, while also with significant PVD due for angioplasty to improve flow, by Dr. Maya, and now sent in for direct admission for treatment of her infected wound as well as expediting of IR PVD intervention with course now c/b noted fever. #Infected RLE heel ulcer with acute osteomyelitis of the calcaneum s/p posterior resection of the right calcaneum on 10/07/[address] Bone, wound vac in place. Wound cultures from OR. aerobic growing polymicrobial adolph and anaerobic culture negative Wound cultures from the ED shows polymicrobial adolph; MRSA, Enterococcus faecalis, E. coli, Morganella Continue zosyn, vanco has been discontinued BCx 1/ positive for Morganella, 2 others are no growth/final - PICC line placed - zosyn started 10/05/2020 - as per ID will need 6 weeks #Gram-negative bacteremia Blood culture positive for Morganella - zosyn as above #anemia - discontinued Lovenox on hold for now - will transfuse 1 unit PRBC today #Peripheral arterial disease Plan for angiography of the lower extremity on October 12, 2020 #DM: continue twice daily 70/30 insulin Fingerstick twice daily consistent carb diet #HTN: will continue coreg 12.5 BID holding ACEi, bumex and amlodipine, to restart if BP rises and after labs return and renal function is evaluated #Chronic Afib: warfarin previously held, transitioned to lovenox for IR procedure as above, holding lovenox for acute blood loss anemia s/p AICD Continue digoxin and Coreg #HLD: continue gemfibrozil, febuxostat #GERD: continue pantoprazole #Systolic CHF Patient has an AICD in place We will hold KENNETH inhibitor and bumetanide #Hyperuricemia/gout Uloric #CKD stage III Baseline creatinine around 1.4 to 1.5 Creatinine at baseline Dispo: Sub acute rehab; extensive discussion with her son over the phone. she is concerned about blood transfusion and would prefer to wait until it is absolutely necessary (Hgb <7); risks of stroke explained to son and patient, both voicing full understanding - holding off on a/c due to abla , no transfusion due to patient request VS,Radha, I+O VS, Radha, I+O Laboratory Tests 10/13/20 19:27 10/14/20 05:29 Vital Signs Date Time Temp Pulse Resp B/P (MAP) Pulse Ox O2 Delivery O2 Flow Rate FiO2 10/14/20 08:16 61 147/76 10/14/20 06:00 97.2 20 99 Room Air 10/12/20 10:15 2.0 I&O- Last 24 Hours up to 6 AM 10/14/20 06:00 Intake Total 1280 ml Output Total 150 ml Balance 1130 ml AMY BRADY MD Oct 14, 2020 10:07
[2020-10-14 14:00] VITALS: BP 127/61
[2020-10-14] MEDS: AMITRIPTYLINE 50 MG TAB PO SCH (21:19)
[2020-10-14 22:00] VITALS: BP 155/68
[2020-10-15 02:00] VITALS: BP 154/68
[2020-10-15] MEDS: PIPERACILLIN/TAZOBACTAM SOD 3.375 GM in D5W MINI-BAG PLUS 50 ML IV SCH ×4 (04:08→21:28)
[2020-10-15] MEDS: SODIUM CHLORIDE 0.9% INJ 10 ML SYR IV SCH ×2 (05:42→16:50)
[2020-10-15 06:00] VITALS: BP 151/68
[2020-10-15 06:07] LABS: HEMATOCRIT 24.1 % (36.0-47.0); HEMOGLOBIN 7.5 g/dl (12.0-15.5); MEAN CORPUSCULAR HGB CONC 31.1 g/dl (32.0-36.5); MEAN CORPUSCULAR VOLUME 89.9 fl (80.0-96.0); PLATELET COUNT, AUTOMATED 383 10^3/uL (150-450); RED BLOOD COUNT 2.68 10^6/uL (4.00-5.40); WHITE BLOOD COUNT 8.8 10^3/uL (4.0-10.0)
[2020-10-15 06:27] LABS: CALCIUM LEVEL 8.9 MG/DL (8.8-10.2); CREATININE FOR GFR 1.08 MG/DL (0.55-1.30); GLOMERULAR FILTRATION RATE 53.9 (>45); POTASSIUM SERUM 4.4 MEQ/L (3.5-5.1)
[2020-10-15 06:41] LABS: ANISOCYTOSIS 2+; EOSINOPHILS 4 % (0-3); LYMPHOCYTES 29 % (16-44); MONOCYTES 5 % (0-5); NEUTROPHILS 62 % (28-66); PLATELET ESTIMATE NORMAL (NORMAL); POLYCHROMASIA 1+
[2020-10-15] MEDS: HumuLIN (NovoLIN)70/30 INSULIN INJ PER UNIT SC SCH ×2 (07:30→18:26)
[2020-10-15] MEDS: FEBUXOSTAT 40 MG TABLET (ULORIC) PO SCH (08:48)
[2020-10-15] MEDS: MAGNESIUM OXIDE 400MG TAB (MAG-OX) PO SCH (08:49)
[2020-10-15] MEDS: PANTOPRAZOLE 40MG TAB (PROTONIX) PO SCH (08:49)
[2020-10-15] MEDS: ASCORBIC ACID 500 MG TAB PO SCH (08:49)
[2020-10-15] MEDS: CARVedilol 12.5 MG TAB PO SCH ×2 (08:49→21:26)
[2020-10-15] MEDS ORDERED: HumuLIN (NovoLIN)70/30 INSULIN INJ PER UNIT SC ONE (09:00)
--- NOTE | 2020-10-15 11:15 | IPNPDOC ---
Text Note Date of Service The patient was seen on 10/15/20. NOTE Subjective: Patient seen and examined at bedside. No acute overnight events reported. No new medical complaints this morning. . She denies chest pain, shortness of breath, dizziness or headaches. Objective: General: NAD, sitting comfortably in chair HEENT: NC/AT, EOMI Chest: lungs CTA B/L, PPM in left subclav pocket Heart: +S1S2, RRR Abd: soft, NT, +BS Ext: no edema, wound VAC to right foot Neuro: no gross focal deficits Psych: AAOx3 A/P: 65 yo Ukrainian speaking W with a history of IDDM2 c/b diabetic neuropathy and retinopathy with a history of a chronic R heel wound that was found to be worse from prior and malodorous, necrotic and grown in size by Dr. Rashid, while also with significant PVD due for angioplasty to improve flow, by Dr. Maya, and now sent in for direct admission for treatment of her infected wound as well as expediting of IR PVD intervention with course now c/b noted fever. #Infected RLE heel ulcer with acute osteomyelitis of the calcaneum s/p posterior resection of the right calcaneum on 10/07/[address] Bone, wound vac in place. Wound cultures from OR. aerobic growing polymicrobial adolph and anaerobic culture negative Wound cultures from the ED shows polymicrobial adolph; MRSA, Enterococcus faecalis, E. coli, Morganella Continue zosyn, vanco has been discontinued BCx 1/3 positive for Morganella, 2 others are no growth/final - PICC line placed - zosyn started 10/05/2020 - as per ID will need 6 weeks #Gram-negative bacteremia Blood culture positive for Morganella - zosyn as above #anemia - discontinued lovenox - Hgb dropped to 7.2 but trending up, 7.5 today - no transfusion, patient did not want transfusion - a/c on hold #Peripheral arterial disease Plan for angiography of the lower extremity on October 12, 2020 #DM: continue twice daily 70/30 insulin Fingerstick twice daily consistent carb diet #HTN: will continue coreg 12.5 BID holding ACEi, bumex and amlodipine, to restart if BP rises and after labs return and renal function is evaluated #Chronic Afib: s/p AICD Continue digoxin and Coreg - a/c on hold given anemia, patient does not want transfusion - if Hgb improves, will resume - risk of stroke explained - discussed at length with son and patient, voicing full understanding of risks #HLD: continue gemfibrozil, febuxostat #GERD: continue pantoprazole #Systolic CHF Patient has an AICD in place We will hold KENNETH inhibitor and bumetanide #Hyperuricemia/gout Uloric #CKD stage III Baseline creatinine around 1.4 to 1.5 Creatinine at baseline Dispo: Sub acute rehab; updated son over the phone VS,Radha, I+O VS, Radha, I+O Laboratory Tests 10/15/20 05:44 Vital Signs Date Time Temp Pulse Resp B/P (MAP) Pulse Ox O2 Delivery O2 Flow Rate FiO2 10/15/20 08:49 62 124/68 10/15/20 06:00 97.6 18 97 Room Air 10/12/20 10:15 2.0 I&O- Last 24 Hours up to 6 AM 10/15/20 06:00 Intake Total 730 ml Balance 730 ml AMY BRADY MD Oct 15, 2020 11:15
[2020-10-15] MEDS: AMITRIPTYLINE 50 MG TAB PO SCH (21:25)
[2020-10-15 22:00] VITALS: BP 143/73
[2020-10-15] MEDS: SODIUM CHLORIDE 0.9% INJ 10 ML SYR IV PRN (22:54)
[2020-10-16] MEDS: PIPERACILLIN/TAZOBACTAM SOD 3.375 GM in D5W MINI-BAG PLUS 50 ML IV SCH ×4 (04:32→22:17)
[2020-10-16 06:00] VITALS: BP 130/65
[2020-10-16 06:12] LABS: HEMATOCRIT 24.5 % (36.0-47.0); HEMOGLOBIN 7.6 g/dl (12.0-15.5); MEAN CORPUSCULAR VOLUME 90.4 fl (80.0-96.0); PLATELET COUNT, AUTOMATED 373 10^3/uL (150-450); RED BLOOD COUNT 2.71 10^6/uL (4.00-5.40); WHITE BLOOD COUNT 7.6 10^3/uL (4.0-10.0)
[2020-10-16] MEDS: SODIUM CHLORIDE 0.9% INJ 10 ML SYR IV SCH ×2 (06:13→17:59)
[2020-10-16 06:39] LABS: ATYPICAL LYMPH 2 % (0-5); EOSINOPHILS 7 % (0-3); LYMPHOCYTES 19 % (16-44); MONOCYTES 11 % (0-5); NEUTROPHILS 61 % (28-66); PLATELET ESTIMATE NORMAL (NORMAL); POLYCHROMASIA 1+
[2020-10-16 06:43] LABS: CALCIUM LEVEL 8.6 MG/DL (8.8-10.2); CREATININE FOR GFR 1.12 MG/DL (0.55-1.30); GLOMERULAR FILTRATION RATE 51.7 (>45); POTASSIUM SERUM 4.8 MEQ/L (3.5-5.1)
[2020-10-16] MEDS: HumuLIN (NovoLIN)70/30 INSULIN INJ PER UNIT SC SCH ×2 (07:30→17:25)
[2020-10-16] MEDS: FEBUXOSTAT 40 MG TABLET (ULORIC) PO SCH (08:39)
[2020-10-16] MEDS: ASCORBIC ACID 500 MG TAB PO SCH (08:39)
[2020-10-16] MEDS: PANTOPRAZOLE 40MG TAB (PROTONIX) PO SCH (08:39)
[2020-10-16] MEDS: CARVedilol 12.5 MG TAB PO SCH ×2 (08:41→22:17)
--- NOTE | 2020-10-16 09:47 | IPNPDOC ---
Text Note Date of Service The patient was seen on 10/16/20. NOTE Subjective: Patient seen and examined at bedside. No acute overnight events reported. No new medical complaints this morning. She denies chest pain, shortness of breath, dizziness or headaches. Objective: General: NAD, sitting comfortably in chair HEENT: NC/AT, EOMI Chest: lungs CTA B/L, PPM in left subclav pocket Heart: +S1S2, RRR Abd: soft, NT, +BS Ext: no edema, wound VAC to right foot, b/l heel floats in place Neuro: no gross focal deficits Psych: AAOx3 A/P: 65 yo [place] speaking W with a history of IDDM2 c/b diabetic neuropathy and retinopathy with a history of a chronic R heel wound that was found to be worse from prior and malodorous, necrotic and grown in size by Dr. Cota, while also with significant PVD due for angioplasty to improve flow, by Dr. Maya, and now sent in for direct admission for treatment of her infected wound as well as expediting of IR PVD intervention with course now c/b noted fever. #Infected RLE heel ulcer with acute osteomyelitis of the calcaneum - s/p posterior resection of the right calcaneum on 10/07/[address] Bone, wound vac in place. - Wound cultures from OR. aerobic growing polymicrobial adolph and anaerobic culture negative - Wound cultures from the ED shows polymicrobial adolph; MRSA, Enterococcus faec cinthya, E. coli, Morganella - Continue zosyn - BCx / positive for Morganella, 2 others are no growth/final - PICC line placed - zosyn started 10/05/2020 - as per ID will need 6 weeks - reported that wound is deteriorating - discussed with dr cota, consultation pending - assistance appreciated #Gram-negative bacteremia - Blood culture positive for Morganella - zosyn as above #anemia - discontinued lovenox - Hgb dropped to 7.2 but trending up, 7.6 today - no transfusion, patient did not want transfusion #Peripheral arterial disease #DM: continue twice daily 70/30 insulin Fingerstick twice daily consistent carb diet #HTN: - will continue coreg 12.5 BID - holding ACEi, bumex and amlodipine - restarting low dose ACEI given DM/HTN #Chronic Afib: - Continue Coreg - a/c on hold given anemia, patient does not want transfusion - if Hgb improves, will resume - risk of stroke explained #HLD: - continue gemfibrozil, febuxostat #GERD: - continue pantoprazole #Systolic CHF Patient has an AICD in place We will hold bumetanide- resume ACEI #Hyperuricemia/gout Uloric #CKD stage III Baseline creatinine around 1.4 to 1.5 Creatinine at baseline Dispo: pending wound care c/s; denied for ARU; pending placement VS,Fishbone, I+O VS, Fishbone, I+O Laboratory Tests 10/16/20 05:49 Vital Signs Date Time Temp Pulse Resp B/P (MAP) Pulse Ox O2 Delivery O2 Flow Rate FiO2 10/16/20 08:41 60 144/71 10/16/20 06:00 98.1 15 98 Room Air 10/12/20 10:15 2.0 I&O- Last 24 Hours up to 6 AM 10/16/20 06:00 Intake Total 1785 ml Output Total 0 ml Balance 1785 ml AMY BRADY MD Oct 16, 2020 09:47
[2020-10-16] MEDS: LISINOPRIL *2.5 MG* TAB PO SCH (10:05)
[2020-10-16] MEDS: SODIUM CHLORIDE 0.9% INJ 10 ML SYR IV PRN ×2 (11:23→23:43)
[2020-10-16 14:00] VITALS: BP 156/73
--- NOTE | 2020-10-16 14:55 | CR ---
CONSULTATION DATE: 10/16/2020 REQUESTED BY: Dr. Mandeep Rangel Via telemedicine. REASON FOR CONSULTATION: Treatment recommendations for right heel wound and wound vacuum-assisted closure (VAC) therapy. Wound care telemedicine provides a visual assessment of a wound without the benefit of physical examination. It can assist with establishing a diagnosis and etiology. This allows for an initial treatment plan. As wounds often change, it may be necessary to modify the original care. Our recommendation is periodic wound reassessment to monitor wound treatment. Failure to comply may result in nonhealing of the wound or wounds, possible complications, and/or a poor outcome. The recommendations given will serve as treatment options. As I will not be following this patient, this care plan will require the attending physician to give and sign the orders. Upon discharge, outpatient followup can be scheduled at our wound care center. Patient well known to our wound care center. This is a 65-year-old neuropathic diabetic female initially seen for a right heel stage IV pressure injury. The patient is a neuropathic diabetic with associated peripheral vascular disease thus creating a complicated wound care problem patient's ABIs were abnormal, and she was scheduled for angiogram and/or angioplasty. As the wound was deteriorating, she was hospitalized to expedite vascular intervention. On her hospitalization, she was found to have a positive blood culture requiring intravenous (IV) antibiotics. I spoke with interventional radiologist physician, Dr. Maya, who indicated she got a good result when performing the angioplasty and that arterial flow was adequately restored. Her wound, which was fairly extensive required extensive debridement involving the entire right heel, was down to palpable bone. Post debridement and at present, the patient is undergoing wound VAC therapy utilizing white foam at 175 mmHg, to be changed on a Monday, Monday, Monday basis. Measurements of the heel wound show a length of 6.8 cm x a width of 6.8 cm with a depth of 3.0 cm and palpable bone at the wound base. TREATMENT RECOMMENDATIONS: wound should be cleaned with Vashe wound cleanser every time the wound VAC is to be changed, which is Monday, Monday, Monday. If possible, a wound Lolly should be obtained and used for cleaning the wound. The Lolly can be immersed in Vashe and used to cleanse and debride the wound White foam is not indicated and should be discontinued, and replaced with black foam.. The wound VAC is run at 175 mmHg, which is too high.This has the potential for closing capillary beds and causing further ischemic changes to the wound bed tissues. Wound VAC should be run at 75 mmHg with dressing changes on a Monday, Monday, Monday basis. A heel float boot is mandatory to continue with offloading. The black foam should be fitted just to the size of the wound and not overlapping the wound edges, which is showing some maceration of the wound edges. Depending upon the outcome, wound VAC pressures can be increased to 100 mmHg but no higher. At the time of potential discharge, please notify our wound center so that the patient can be followed up at our wound clinic. Note I have discussed this initially with Dr. Rangel. Thank you for this consult. DEVENDRA
[2020-10-16 22:00] VITALS: BP 156/71
[2020-10-16] MEDS: AMITRIPTYLINE 50 MG TAB PO SCH (22:17)
[2020-10-17] MEDS: SODIUM CHLORIDE 0.9% INJ 10 ML SYR IV SCH ×2 (04:59→18:44)
[2020-10-17] MEDS: PIPERACILLIN/TAZOBACTAM SOD 3.375 GM in D5W MINI-BAG PLUS 50 ML IV SCH ×4 (04:59→21:47)
[2020-10-17 06:00] VITALS: BP 156/72
[2020-10-17 07:00] LABS: HEMATOCRIT 24.9 % (36.0-47.0); HEMOGLOBIN 7.9 g/dl (12.0-15.5); MEAN CORPUSCULAR HEMOGLOBIN 28.4 pg (27.0-33.0); MEAN CORPUSCULAR HGB CONC 31.7 g/dl (32.0-36.5); MEAN CORPUSCULAR VOLUME 89.6 fl (80.0-96.0); PLATELET COUNT, AUTOMATED 393 10^3/uL (150-450); RED BLOOD COUNT 2.78 10^6/uL (4.00-5.40); WHITE BLOOD COUNT 8.3 10^3/uL (4.0-10.0)
[2020-10-17 07:23] LABS: CREATININE FOR GFR 1.11 MG/DL (0.55-1.30); GLOMERULAR FILTRATION RATE 52.2 (>45); POTASSIUM SERUM 4.9 MEQ/L (3.5-5.1)
[2020-10-17] MEDS: HumuLIN (NovoLIN)70/30 INSULIN INJ PER UNIT SC SCH ×2 (07:30→18:44)
[2020-10-17 07:40] LABS: BASOPHILS 1 % (0-1); EOSINOPHILS 5 % (0-3); LYMPHOCYTES 17 % (16-44); METAMYELOCYTES 1 % (0-0); MONOCYTES 8 % (0-5); NEUTROPHILS 68 % (28-66)
[2020-10-17 07:41] LABS: PLATELET ESTIMATE NORMAL (NORMAL)
[2020-10-17 07:43] LABS: POLYCHROMASIA 1+
--- NOTE | 2020-10-17 08:36 | IPNPDOC ---
Text Note Date of Service The patient was seen on 10/17/20. NOTE Subjective: Patient seen and examined at bedside. No acute overnight events reported. No new medical complaints this morning. Objective: General: NAD, lying comfortably in bed HEENT: NC/AT, EOMI Chest: lungs CTA B/L, PPM in left subclav pocket Heart: +S1S2, RRR Abd: soft, NT, +BS Ext: no edema, wound VAC to right foot, b/l heel floats in place Neuro: no gross focal deficits Psych: AAOx3 A/P: 65 yo Stateless speaking W with a history of IDDM2 c/b diabetic neuropathy and ret inopathy with a history of a chronic R heel wound that was found to be worse from prior and malodorous, necrotic and grown in size by Dr. Cota, while also with significant PVD due for angioplasty to improve flow, by Dr. Maya, and now sent in for direct admission for treatment of her infected wound as well as expediting of IR PVD intervention with course now c/b noted fever. #Infected RLE heel ulcer with acute osteomyelitis of the calcaneum - s/p posterior resection of the right calcaneum on 10/07/[address] Bone, wound vac in place. - Wound cultures from OR. aerobic growing polymicrobial adolph and anaerobic culture negative - Wound cultures from the ED shows polymicrobial adolph; MRSA, Enterococcus faecalis, E. coli, Morganella - Continue zosyn - BCx 1/3 positive for Morganella, 2 others are no growth/final - PICC line placed - zosyn started 10/05/2020 - as per ID will need 6 weeks - reported that wound is deteriorating - discussed with dr cota - assistance appreciated - surgery c/s pending #Gram-negative bacteremia - 1 Blood culture positive for Morganella - zosyn as above #anemia - discontinued lovenox - Hgb dropped to 7.2 but trending up, 7.9 today - no transfusion, patient did not want transfusion #Peripheral arterial disease #DM: continue twice daily 70/30 insulin Fingerstick twice daily consistent carb diet #HTN: - will continue coreg 12.5 BID, lisinopril - holding ACEi, bumex and amlodipine #Chronic Afib: - Continue Coreg - a/c on hold given anemia, patient does not want transfusion - as Hgb improves will restart a/c - risk of stroke explained to patient and son, voicing full understanding #HLD: - continue gemfibrozil, febuxostat #GERD: - continue pantoprazole #Systolic CHF Patient has an AICD in place We will hold bumetanide- resume ACEI #Hyperuricemia/gout Uloric #CKD stage III Baseline creatinine around 1.4 to 1.5 Creatinine at baseline Dispo: pending surgical c/s; denied for ARU; pending placement VS,Fishbone, I+O VS, Fishbone, I+O Laboratory Tests 10/17/20 06:34 Vital Signs Date Time Temp Pulse Resp B/P (MAP) Pulse Ox O2 Delivery O2 Flow Rate FiO2 10/17/20 06:00 97.0 60 16 156/72 (100) 98 Room Air 10/12/20 10:15 2.0 I&O- Last 24 Hours up to 6 AM 10/17/20 06:00 Intake Total 1520 ml Output Total 0 ml Balance 1520 ml AMY BRADY MD Oct 17, 2020 08:36
[2020-10-17] MEDS ORDERED: LIDOCAINE 4% CREAM 5GM (LMX4) TOP ONE (10:00)
[2020-10-17] MEDS: FEBUXOSTAT 40 MG TABLET (ULORIC) PO SCH (10:08)
[2020-10-17] MEDS: LISINOPRIL *2.5 MG* TAB PO SCH (10:08)
[2020-10-17] MEDS: ASCORBIC ACID 500 MG TAB PO SCH (10:08)
[2020-10-17] MEDS: PANTOPRAZOLE 40MG TAB (PROTONIX) PO SCH (10:08)
[2020-10-17] MEDS: MAGNESIUM OXIDE 400MG TAB (MAG-OX) PO SCH (10:09)
[2020-10-17] MEDS: CARVedilol 12.5 MG TAB PO SCH ×2 (10:09→21:48)
[2020-10-17 14:00] VITALS: BP 155/75
[2020-10-17] MEDS: AMITRIPTYLINE 50 MG TAB PO SCH (21:48)
[2020-10-17 22:00] VITALS: BP_SYST 148; BP_SYST 156; BP_DIAS 127; BP_DIAS 77
[2020-10-17] MEDS: SODIUM CHLORIDE 0.9% INJ 10 ML SYR IV PRN (23:22)
[2020-10-17] MEDS: ACETAMINOPHEN TAB 650MG DOSE (2X325MG) PO PRN (23:33)
[2020-10-18] MEDS: SODIUM CHLORIDE 0.9% INJ 10 ML SYR IV SCH ×2 (05:20→18:00)
[2020-10-18] MEDS: PIPERACILLIN/TAZOBACTAM SOD 3.375 GM in D5W MINI-BAG PLUS 50 ML IV SCH ×4 (05:20→22:20)
[2020-10-18 06:00] VITALS: BP 122/65
[2020-10-18] MEDS: HumuLIN (NovoLIN)70/30 INSULIN INJ PER UNIT SC SCH ×2 (07:30→17:56)
[2020-10-18 07:44] LABS: HEMATOCRIT 25.6 % (36.0-47.0); HEMOGLOBIN 7.9 g/dl (12.0-15.5); MEAN CORPUSCULAR HEMOGLOBIN 27.9 pg (27.0-33.0); MEAN CORPUSCULAR HGB CONC 30.9 g/dl (32.0-36.5); MEAN CORPUSCULAR VOLUME 90.5 fl (80.0-96.0); PLATELET COUNT, AUTOMATED 378 10^3/uL (150-450); RED BLOOD COUNT 2.83 10^6/uL (4.00-5.40)
[2020-10-18 08:02] LABS: CALCIUM LEVEL 8.5 MG/DL (8.8-10.2); CREATININE FOR GFR 1.18 MG/DL (0.55-1.30); GLOMERULAR FILTRATION RATE 48.6 (>45); POTASSIUM SERUM 4.7 MEQ/L (3.5-5.1)
[2020-10-18 08:24] LABS: BASOPHILS 1 % (0-1); EOSINOPHILS 5 % (0-3); LYMPHOCYTES 20 % (16-44); MONOCYTES 6 % (0-5); NEUTROPHILS 66 % (28-66)
[2020-10-18 08:29] LABS: PLATELET ESTIMATE NORMAL (NORMAL); POLYCHROMASIA 1+
[2020-10-18] MEDS: PANTOPRAZOLE 40MG TAB (PROTONIX) PO SCH (10:37)
[2020-10-18] MEDS: LISINOPRIL *2.5 MG* TAB PO SCH (10:37)
[2020-10-18] MEDS: FEBUXOSTAT 40 MG TABLET (ULORIC) PO SCH (10:37)
[2020-10-18] MEDS: CARVedilol 12.5 MG TAB PO SCH ×2 (10:38→22:19)
[2020-10-18] MEDS: ASCORBIC ACID 500 MG TAB PO SCH (10:38)
--- NOTE | 2020-10-18 12:02 | ROOPDOC ---
[facility] Report Of Operation Report of Operation DATE OF PROCEDURE: 10/17/20 PREPROCEDURE DIAGNOSES: necrotic soft tissue, right heel open wound. POSTPROCEDURE DIAGNOSES: same PROCEDURE PERFORMED: sharp excisional debridement soft tissue, right heel. SURGEON: Crescencio Lakhani MD ANESTHESIA: local anesthesia with 4% lidocaine cream. ESTIMATED BLOOD LOSS: Approximately 5 mL. COMPLICATIONS: none. REMARKS: Patient is a 65-year-old female who in the end of September underwent. Resection of right heel posterior calcaneal osteomyelitis by Dr. Bone wound was left open with a wound VAC. placed. There is a small amount of desiccated fat tissue at the rim of the wound most prominent at the posterior edge of the wound but overall the wound bed seems to be clean, minimal granulation at this time. No signs of periwound erythema. DESCRIPTION OF PROCEDURE: Procedure was done at the bedside. I discussed cleaning up the wound with her as well as with her daughter on the phone. The online [employer] service was used as patient is mainly English-speaking. We paused for a surgical timeout using both pre-incision safety checklist to verify correct patient, procedure site and additional clinical information prior to beginning the procedure Her right leg is elevated on 3 pillows to further expose the heel. This was prepped with Betadine and surgical drapes placed around it. Previously I have had the nurse place 4% lidocaine cream to the wound for analgesia. Patient has diabetic neuropathy and is very minimal sensation on the heel. Using a 15 blade scalpel as well as a sharp curette the superficial necrotic, desiccated fat tissue was excised until we get good oozing from the wound bed. Hemostasis performed with temporary packing and pressure. The overall wound bed seems to be clean. There is a small amount of spongy tissue overlying the remnants of the calcaneus which is exposed. But overall looks clean. No purulent collection that I appreciate. No periwound erythema. The wound VAC was then placed back on the patient as prescribed by the wound care surgeon. I only had the small amount of white foam placed on top of the exposed bone. Patient tolerated procedure well. CRESCENCIO LAKHANI MD Oct 18, 2020 12:02
[2020-10-18 14:00] VITALS: BP 147/73
--- NOTE | 2020-10-18 15:23 | IPNPDOC ---
Text Note Date of Service The patient was seen on 10/18/20. NOTE Subjective: Patient seen and examined at bedside. No acute overnight events reported. No new medical complaints this morning. Underwent bedside debridement yesterday. Objective: General: NAD, lying comfortably in bed HEENT: NC/AT, EOMI Chest: lungs CTA B/L, PPM in left subclav pocket Heart: +S1S2, RRR Abd: soft, NT, +BS Ext: no edema, wound VAC to right foot, b/l heel floats in place Neuro: no gross focal deficits Psych: AAOx3 A/P: 65 yo Azeri speaking W with a history of IDDM2 c/b diabetic neuropathy and retinopathy with a history of a chronic R heel wound that was found to be worse from prior and malodorous, necrotic and grown in size by Dr. Cota, while also with significant PVD due for angioplasty to improve flow, by Dr. Maya, and now sent in for direct admission for treatment of her infected wound as well as expediting of IR PVD intervention with course now c/b noted fever. #Infected RLE heel ulcer with acute osteomyelitis of the calcaneum - s/p posterior resection of the right calcaneum on 10/07/[address] Bone, wound vac in place. - Wound cultures from OR. aerobic growing polymicrobial adolph and anaerobic culture negative - Wound cultures from the ED shows polymicrobial adolph; MRSA, Enterococcus faecalis, E. coli, Morganella - Continue zosyn - BCx 1/3 positive for Morganella, 2 others are no growth/final - PICC line placed - zosyn started 10/05/2020 - as per ID will need 6 weeks - reported that wound is deteriorating - discussed with dr cota - assistance appreciated - surgery c/s appreciated - s/p bedside debridement #Gram-negative bacteremia - 1 Blood culture positive for Morganella - zosyn as above #anemia - discontinued lovenox - Hgb dropped to 7.2 but trending up, 7.9 today - no transfusion, patient did not want transfusion #Peripheral arterial disease #DM: continue twice daily 70/30 insulin Fingerstick twice daily consistent carb diet #HTN: - will continue coreg 12.5 BID, lisinopril - holding ACEi, bumex and amlodipine #Chronic Afib: - Continue Coreg - a/c on hold given anemia, patient does not want transfusion - as Hgb improves will restart a/c - risk of stroke explained #HLD: - continue gemfibrozil, febuxostat #GERD: - continue pantoprazole #Systolic CHF Patient has an AICD in place We will hold bumetanide- resume ACEI #Hyperuricemia/gout Uloric #CKD stage III Baseline creatinine around 1.4 to 1.5 Creatinine at baseline Dispo: pending clinical improvement - monitor H/H; resume a/c for afib when appropriate; denied for ARU; pending placement VS,Fishbone, I+O VS, Fishbone, I+O Laboratory Tests 10/18/20 06:43 Vital Signs Date Time Temp Pulse Resp B/P (MAP) Pulse Ox O2 Delivery O2 Flow Rate FiO2 10/18/20 10:38 62 10/18/20 10:37 122/74 10/18/20 06:00 96.1 18 100 Room Air 10/12/20 10:15 2.0 I&O- Last 24 Hours up to 6 AM 10/18/20 06:00 Intake Total 1244 ml Output Total 0 ml Balance 1244 ml AMY BRADY MD Oct 18, 2020 15:23
[2020-10-18 22:00] VITALS: BP 143/70
[2020-10-18] MEDS: AMITRIPTYLINE 50 MG TAB PO SCH (22:19)
[2020-10-18] MEDS: SODIUM CHLORIDE 0.9% INJ 10 ML SYR IV PRN (23:46)
[2020-10-19] MEDS: PIPERACILLIN/TAZOBACTAM SOD 3.375 GM in D5W MINI-BAG PLUS 50 ML IV SCH ×4 (05:01→21:30)
[2020-10-19] MEDS: SODIUM CHLORIDE 0.9% INJ 10 ML SYR IV SCH ×2 (05:02→16:55)
[2020-10-19 06:00] VITALS: BP 143/71
[2020-10-19 06:49] LABS: HEMATOCRIT 27.1 % (36.0-47.0); HEMOGLOBIN 8.3 g/dl (12.0-15.5); MEAN CORPUSCULAR HEMOGLOBIN 27.8 pg (27.0-33.0); MEAN CORPUSCULAR HGB CONC 30.6 g/dl (32.0-36.5); MEAN CORPUSCULAR VOLUME 90.6 fl (80.0-96.0); PLATELET COUNT, AUTOMATED 366 10^3/uL (150-450); RED BLOOD COUNT 2.99 10^6/uL (4.00-5.40); WHITE BLOOD COUNT 7.5 10^3/uL (4.0-10.0)
[2020-10-19 07:17] LABS: ALBUMIN 2.4 GM/DL (3.2-5.2); BILIRUBIN,TOTAL 0.4 MG/DL (0.2-1.0); CALCIUM LEVEL 9.2 MG/DL (8.8-10.2); CREATININE FOR GFR 1.28 MG/DL (0.55-1.30); GLOMERULAR FILTRATION RATE 44.3 (>45); POTASSIUM SERUM 4.8 MEQ/L (3.5-5.1); TOTAL PROTEIN 7.1 GM/DL (6.4-8.2)
[2020-10-19 07:24] LABS: EOSINOPHILS 3 % (0-3); LYMPHOCYTES 26 % (16-44); MONOCYTES 8 % (0-5); NEUTROPHILS 63 % (28-66); PLATELET ESTIMATE NORMAL (NORMAL)
[2020-10-19] MEDS: ASCORBIC ACID 500 MG TAB PO SCH (09:32)
[2020-10-19] MEDS: FEBUXOSTAT 40 MG TABLET (ULORIC) PO SCH (09:32)
[2020-10-19] MEDS: PANTOPRAZOLE 40MG TAB (PROTONIX) PO SCH (09:32)
[2020-10-19] MEDS: MAGNESIUM OXIDE 400MG TAB (MAG-OX) PO SCH (09:32)
[2020-10-19] MEDS: HumuLIN (NovoLIN)70/30 INSULIN INJ PER UNIT SC SCH ×2 (09:32→16:55)
[2020-10-19] MEDS: LISINOPRIL *2.5 MG* TAB PO SCH (09:34)
[2020-10-19] MEDS: CARVedilol 12.5 MG TAB PO SCH ×2 (09:35→21:30)
[2020-10-19] MEDS: SODIUM CHLORIDE 0.9% INJ 10 ML SYR IV PRN ×3 (11:32→23:24)
[2020-10-19 14:00] VITALS: BP_SYST 142; BP_SYST 192; BP_DIAS 71
--- NOTE | 2020-10-19 14:12 | IPNPDOC ---
Text Note Date of Service The patient was seen on 10/19/20. NOTE Subjective: Patient seen and examined at bedside. No acute overnight events reported. No new medical complaints this morning. Objective: General: NAD, lying comfortably in bed HEENT: NC/AT, EOMI Chest: lungs CTA B/L, PPM in left subclav pocket Heart: +S1S2, RRR Abd: soft, NT, +BS Ext: no edema, wound VAC to right foot, b/l heel floats in place Neuro: no gross focal deficits Psych: AAOx3 A/P: 65 yo Pakistani speaking W with a history of IDDM2 c/b diabetic neuropathy and ret inopathy with a history of a chronic R heel wound that was found to be worse from prior and malodorous, necrotic and grown in size by Dr. Cota, while also with significant PVD due for angioplasty to improve flow, by Dr. Maya, and now sent in for direct admission for treatment of her infected wound as well as expediting of IR PVD intervention with course now c/b noted fever. #Infected RLE heel ulcer with acute osteomyelitis of the calcaneum - s/p posterior resection of the right calcaneum on 10/07/[address] Bone, wound vac in place. - Wound cultures from OR. aerobic growing polymicrobial adolph and anaerobic culture negative - Wound cultures from the ED shows polymicrobial adolph; MRSA, Enterococcus faecalis, E. coli, Morganella - Continue zosyn - BCx 1/3 positive for Morganella, 2 others are no growth/final - PICC line placed - zosyn started 10/05/2020 - as per ID will need 6 weeks - reported that wound is deteriorating - discussed with dr cota - assistance appreciated - surgery c/s appreciated - s/p bedside debridement #Gram-negative bacteremia - 1 Blood culture positive for Morganella - zosyn as above #anemia - discontinued lovenox - Hgb dropped to 7.2 but trending up, 8.3 today - no transfusion, patient did not want transfusion #Peripheral arterial disease #DM: continue twice daily 70/30 insulin Fingerstick twice daily consistent carb diet #HTN: - will continue coreg 12.5 BID, lisinopril - holding bumex and amlodipine #Chronic Afib: - Continue Coreg - a/c on hold given anemia, patient does not want transfusion - as Hgb improves will restart a/c - risk of stroke perviously explained with full understanding - Hgb improved - resume a/c if hgb remains stable #HLD: - continue gemfibrozil, febuxostat #GERD: - continue pantoprazole #Systolic CHF Patient has an AICD in place We will hold bumetanide for now, creatinine trending up, may need to resume #Hyperuricemia/gout Uloric #CKD stage III Baseline creatinine around 1.4 to 1.5 Creatinine at baseline Dispo: pending clinical improvement - monitor H/H; resume a/c for afib when appropriate; denied for ARU; pending placement; resuming a/c provided for sign out if hgb remains table VS,Fishbone, I+O VS, Fishbone, I+O Laboratory Tests 10/19/20 06:28 Vital Signs Date Time Temp Pulse Resp B/P (MAP) Pulse Ox O2 Delivery O2 Flow Rate FiO2 10/19/20 09:35 61 142/72 10/19/20 06:00 97.7 16 98 Room Air I&O- Last 24 Hours up to 6 AM 10/19/20 06:00 Intake Total 1770 ml Balance 1770 ml AMY BRADY MD Oct 19, 2020 14:12
[2020-10-19 21:13] VITALS: BP 163/79
[2020-10-19] MEDS: AMITRIPTYLINE 50 MG TAB PO SCH (21:29)
[2020-10-20] VITALS (8 sets, daily range): BP systolic 141–179; BP diastolic 70–98
[2020-10-20] MEDS: SODIUM CHLORIDE 0.9% INJ 10 ML SYR IV PRN ×3 (02:58→08:35)
[2020-10-20] MEDS: PIPERACILLIN/TAZOBACTAM SOD 3.375 GM in D5W MINI-BAG PLUS 50 ML IV SCH ×4 (03:32→21:10)
[2020-10-20] MEDS: SODIUM CHLORIDE 0.9% INJ 10 ML SYR IV SCH ×2 (05:02→18:00)
[2020-10-20 05:20] LABS: HEMATOCRIT 26.5 % (36.0-47.0); HEMOGLOBIN 8.3 g/dl (12.0-15.5); MEAN CORPUSCULAR HEMOGLOBIN 27.9 pg (27.0-33.0); MEAN CORPUSCULAR HGB CONC 31.3 g/dl (32.0-36.5); MEAN CORPUSCULAR VOLUME 89.2 fl (80.0-96.0); PLATELET COUNT, AUTOMATED 348 10^3/uL (150-450); RED BLOOD COUNT 2.97 10^6/uL (4.00-5.40); WHITE BLOOD COUNT 7.8 10^3/uL (4.0-10.0)
[2020-10-20 05:46] LABS: ATYPICAL LYMPH 1 % (0-5); BASOPHILS 6 % (0-1); EOSINOPHILS 5 % (0-3); LYMPHOCYTES 21 % (16-44); MONOCYTES 6 % (0-5); NEUTROPHILS 61 % (28-66)
[2020-10-20 05:48] LABS: PLATELET ESTIMATE NORMAL (NORMAL)
[2020-10-20 05:49] LABS: ANISOCYTOSIS 1+
[2020-10-20 05:51] LABS: CALCIUM LEVEL 8.7 MG/DL (8.8-10.2); CREATININE FOR GFR 1.19 MG/DL (0.55-1.30); GLOMERULAR FILTRATION RATE 48.2 (>45); POTASSIUM SERUM 4.4 MEQ/L (3.5-5.1)
[2020-10-20] MEDS: HumuLIN (NovoLIN)70/30 INSULIN INJ PER UNIT SC SCH (07:30)
--- NOTE | 2020-10-20 08:44 | REP ---
INDICATION: stroke. COMPARISON: None. TECHNIQUE: Helical scanning is acquired. 5 mm axial images were reformatted. Coronal MPR images were generated. FINDINGS: Bone window settings demonstrate an intact bony calvarium. There is no evidence of skull fracture or incidental bony calvarial lesion. The visualized paranasal sinuses appear clear. No intraorbital abnormality is seen. On soft tissue window setting images; the lateral, third, and fourth ventricles are normal in size and position. Rea-white differentiation pattern is normal above and below the tentorium. There are is no evidence of intracranial hemorrhage. No mass, edema, infarction, or midline shift is seen. No extra-axial fluid collection is appreciated. There is mild generalized volume loss. IMPRESSION: Mild generalized volume loss. No acute intracranial abnormality.. <Electronically signed by Salvatore Dominguez > 10/20/20 [id number]
[2020-10-20 08:50] LABS: CHOLESTEROL LEVEL 158 MG/DL (<200); CHOLESTEROL RISK RATIO 3.853 (<5); CK-MB VALUE MASS < 1.0 NG/ML (<3.6); CPK CREATINE PHOSPHOKINASE 21 U/L (26-192); HDL CHOLESTEROL 41 MG/DL (>40); LDL CHOLESTEROL 96 MG/DL (<100); MB/CK RELATIVE INDEX 4.76 (< OR =4); NON-HDL-C 117 MG/DL; TRIGLYCERIDES LEVEL 103 MG/DL (<150); TROPONIN I 0.22 NG/ML (< 0.10)
[2020-10-20] MEDS: PANTOPRAZOLE 40MG TAB (PROTONIX) PO SCH (09:00)
[2020-10-20] MEDS: FEBUXOSTAT 40 MG TABLET (ULORIC) PO SCH (09:00)
[2020-10-20] MEDS: ASCORBIC ACID 500 MG TAB PO SCH (09:00)
[2020-10-20] MEDS: LISINOPRIL *2.5 MG* TAB PO SCH (09:00)
[2020-10-20 09:30] LABS: INR 1.12; PROTHROMBIN TIME 14.8 SECONDS (12.7-14.5)
[2020-10-20 09:31] LABS: PARTIAL THROMBOPLASTIN TIME 32.7 SECONDS (25.9-37.0)
[2020-10-20] MEDS ORDERED: ISOVUE-370 76% 100ML VIAL As Ordered ONE (10:10)
--- NOTE | 2020-10-20 10:58 | REPVR ---
PROCEDURE INFORMATION: Exam: CT Angiography Head With Contrast, Arteriography Exam date and time: 10/20/2020 10:35 AM Age: 65 years old Clinical indication: Pain; Additional info: CVA TECHNIQUE: Imaging protocol: Computed tomography angiography of the head with contrast. Exam focused on the arteries. 3D rendering (Not supervised by radiologist): MIP and/or 3D reconstructed images were created by the technologist. Radiation optimization: All CT scans at this facility use at least one of these dose optimization techniques: automated exposure control; mA and/or kV adjustment per patient size (includes targeted exams where dose is matched to clinical indication); or iterative reconstruction. Contrast material: ISOVUE 370; Contrast volume: 75 ml; Contrast route: INTRAVENOUS (IV); COMPARISON: CT Head without contrast 10/20/2020 8:15 AM FINDINGS: ANTERIOR CIRCULATION: Right internal carotid artery: Mild narrowing of the distal internal carotid artery on the right. Right middle cerebral artery: Abrupt occlusion of the pre bifurcation M1 segment of the right middle cerebral artery with poor filling more distal to this. Diminished arborization of the right middle cerebral artery branches in comparison to the left. Right anterior cerebral artery: Unremarkable. No occlusion or significant stenosis. No aneurysm. Left internal carotid artery: Mild narrowing of the distal internal carotid artery on the left. Left middle cerebral artery: Unremarkable. No occlusion or significant stenosis. No aneurysm. Left anterior cerebral artery: Unremarkable. No occlusion or significant stenosis. No aneurysm. POSTERIOR CIRCULATION: Right vertebral artery: Unremarkable. No occlusion or significant stenosis. No aneurysm. Left vertebral artery: Unremarkable. No occlusion or significant stenosis. No aneurysm. Basilar artery: Unremarkable. No occlusion or significant stenosis. No aneurysm. Right posterior cerebral artery: Unremarkable. No occlusion or significant stenosis. No aneurysm. Left posterior cerebral artery: origin of the posterior cerebral artery on the left. Veins: Venous contamination without venous thrombus. Brain: Diffuse involutional changes in the brain without acute hemorrhage. More conspicuous hypodensity in the right middle cerebral artery territory corresponding to the occluded vessel. This may represent early changes acute infarct. No visualized thrombus. Cerebral ventricles: No ventriculomegaly. Bones/joints: Unremarkable. No acute fracture. Soft tissues: Unremarkable. IMPRESSION: 1. Occluded right middle cerebral artery proximally. 2. Corresponding hypodensity in the right middle cerebral artery territory suggestive of acute infarct. No acute hemorrhage. Electronically signed by: Elier Isabel On 10/20/2020 10:57:48 AM
[2020-10-20] MEDS ORDERED: ASPIRIN 81MG ENTERIC TABLET PO SCH (11:15)
[2020-10-20] MEDS: NS 1,000 ML IV SCH (12:30)
[2020-10-20] MEDS ORDERED: ASPIRIN 300 MG SUPP PR SCH (14:00)
[2020-10-20] MEDS ORDERED: VARIBAR NECTAR 40% w/v 240ML SUSP BTL As Ordered ONE (14:09)
[2020-10-20] MEDS ORDERED: VARIBAR PUDDING 40% w/v 230ML TUBE As Ordered ONE (14:09)
[2020-10-20] MEDS ORDERED: BARIUM SULFATE 700 MG TABLET (E-Z-DISK) As Ordered ONE (14:09)
[2020-10-20] MEDS ORDERED: E-Z-PAQUE 96% w/w SUSP 176GM BTL As Ordered ONE (14:09)
[2020-10-20] MEDS ORDERED: MORPHINE 2 MG/ML 1ML VIAL (J2270) IV PRN (14:30)
--- NOTE | 2020-10-20 15:06 | REP ---
INDICATION: Coarse breath sounds. COMPARISON: None. TECHNIQUE: AP and lateral views FINDINGS: 3 cm soft tissue density right apex could represent nodule or artifact. Follow-up with PA and lateral views is recommended. The lungs are otherwise clear. There is no evidence of pneumonia. The heart is slightly enlarged with dual pacing leads are in place. There is no failure. PICC line in place with tip in superior vena cava. IMPRESSION: Area of increased density in the right apex should be evaluated further with PA and lateral views. Slight cardiac enlargement. No evidence of failure or pneumonia. PICC line in place with tip in superior vena cava. <Electronically signed by Onesimo Manuel > 10/20/20 [id number]
--- NOTE | 2020-10-20 15:38 | IPNPDOC ---
Subjective Date Seen The patient was seen on 10/20/20. Subjective Chief Complaint/HPI Mrs. 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 This morning, a code stroke was called. Patient was last seen normal around 1PM after receiving glucose for hypoglycemia. Son suspects that her last normal may have been yesterday evening, because she was acting differently and more lethargic. This morning, she had slurred speech, left facial droop, and left arm weakness. Patient reported that her tongue felt heavy. She was confused and was asking to be taken to her room or seeing dark shapes in the corner of her eye. Otherwise, she said last night she felt a pop in the back of her neck and then started to have sharp neck pain. She was taken down to CT head which was negative for ICH. Ordered a CT angio head which demonstrated right MCA stroke near M1. Spoke with neurology. Due to the location, she may or may not have had a large stroke. Recommended repeating CT head in 12 hours. If it is a large stroke, then no anticoagulation due to high risk of hemorrhagic conversion. If small stroke, we can consider adding anticoagulation. In the afternoon, son/HCP Dong can and visit. I discussed with him about the patient. We were talking about blood transfusion, and he is agreeable to blood transfusion if needed. We signed the consent form for blood products today. Otherwise, I spoke with Cardiology about the pacemaker. They will interrogate today. At this time, they are okay with following troponin. We put patient on telemetry and she was initially bradycardic, before heart rate increased to 60. We did obtain EKG which demonstrated paced rhythm. Echocardiogram with bubble study ordered, pending results. Speech therapy worked with patient, recommended NPO until Barium swallow can be performed. Objective Physical Examination General Exam: Positive: Alert, Cooperative Eye Exam: Positive: EOMI; Negative: Sclera icteric Chest Exam: Positive: Other (Coarse breath sounds) Heart Exam: Positive: Bradycardic, Regular Rhythm Abdomen Exam: Positive: Normal bowel sounds, Soft; Negative: Tenderness Extremity Exam: Negative: Edema Skin Exam: Positive: Other skin issue (Large right heel pressure ulcer coverring the whole heel ) Neuro Exam: Positive: Other (Left facial droop); Negative: Normal Speech (Slurred), Strength at 5/5 X4 ext (Left arm weaker than right) Psych Exam: Negative: Mental status NL Assessment /Plan Assessment Mrs. 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 She will be on antibiotics for 6 weeks from 10/05/20. Otherwise, she had an acute right MCA stroke with left arm weakness and left facial droop. Spoke with neurology. Recommending only aspirin at this time as we don't know if it's a large stroke or small stroke. If large stroke, has higher risk of bleeding than small stroke. Will repeat CT head Patient see Dr. Rasheed outpatient. Dr. Lazaro is cotton broker. He will interrogate the pacemaker later today. Otherwise, I notified them about the troponin. Okay to watch and trend at this time. Plan/VTE VTE Prophylaxis Ordered?: Yes Plan 1. 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 Bone -Would cultures from the ED growing multiple organisms -ID consulted, recommending 6 weeks of antibiotics -Continues on Zosyn 2. Acute right MCA stroke with left arm weakness -Code stroke called on morning of 10/20/20. Last normal may have been at 1AM or previous night -Unable to obtain MRI due to pacemaker -Discussed case with Dr. Austin, recommending aspirin at this time and repeat CT head -If large stroke, high risk for hemorrhagic conversion. If small stroke, may be okay to start anticoagulation -LDL of 96 -Ordered for HbA1c for tomorrow -Will need to allow for permissive hypertension with SBP between 140 to 180 -Pending echocardiogram with bubble study results 3. Dysphagia -ST following -Cookie swallow tomorrow -NPO at this time as not safe diet until evaluated by cookie swallow 4. Gram-negative bacteremia -Seen in 1 blood culture, grew Morganella -On Zosyn 5. Anemia -Anticoagulation held due to hemoglobin which dropped to 7.2 -Better today -Patient is confused. Spoke with Son/HCP about risks and benefits of blood transfusion. He is agreeable to blood transfusion if patient requires blood transfusion 6. DM -Discontinued insulin due to patient's NPO status -Continue FSBG 7. Hypertension -Will need to allow for permissive hypertension with BP between 140 to 180 -Holding Coreg, lisinopril, bumex, and amlodipine 8. Atrial fibrillation -Holding Coreg to allow for permissive hypertension -Holding anticoagulation due to CVA. Will need to touch base with neurology about when to restart anticoagulation 9. Hyperlipidemia -Gemfibrozil and febuxostat held due to no safe diet at this time 10. GERD -Protonix held due to no safe diet at this time 11. Gout -Uloric held duet to no safe diet at this time 12. CKD stage 3 -Creatinine at baseline 13. DVT ppx -No chemical ppx until cleared by neurology -SCD and TEDs Disposition: Pending clinical improvement. VS, I&O, 24H, Fishbone Vital Signs/I&O Vital Signs Date Time Temp Pulse Resp B/P (MAP) Pulse Ox O2 Delivery O2 Flow Rate FiO2 10/20/20 10:48 97.1 60 17 154/73 (100) 100 Room Air I&O- Last 24 Hours up to 6 AM 10/20/20 06:00 Intake Total 1530 ml Output Total 0 ml Balance 1530 ml Laboratory Data 24H LABS Laboratory Tests 2 10/19/20 16:34: Bedside Glucose (Misc Panel) 92 10/19/20 20:39: Bedside Glucose (Misc Panel) 115 10/20/20 01:09: Bedside Glucose (Misc Panel) 63L 10/20/20 03:28: Bedside Glucose (Misc Panel) 136H 10/20/20 05:07: Neutrophils (%) (Auto) , Nucleated Red Blood Cells % (auto) 0.0, Neutrophils 61, Lymphocytes (Manual) 21, Monocytes (Manual) 6H, Eosinophils (Manual) 5H, Basophils (Manual) 6H, Atypical Lymphocytes 1, Anisocytosis 1+, Platelet Estimate NORMAL, Anion Gap 9, Glomerular Filtration Rate 48.2, Calcium Level 8.7L 10/20/20 07:58: Bedside Glucose (Misc Panel) 110 10/20/20 08:10: Total Creatine Kinase 21L, Creatine Kinase MB < 1.0, Creatine Kinase MB Relative Index 4.76H, Troponin I 0.22H, Triglycerides Level 103, Total Cholesterol 158, LDL Cholesterol 96, Non-HDL Cholesterol (LDL + VLDL) 117, Total HDL Cholesterol 41, Cholesterol/HDL Ratio 3.853 8/10/21 08:30: Prothrombin Time 14.8H, Prothromb Time International Ratio 1.12, Activated Partial Thromboplast Time 32.7 10/20/20 11:56: Bedside Glucose (Misc Panel) 125H CBC/BMP Laboratory Tests 10/20/20 05:07 Microbiology Microbiology 10/13/20 Stool Occult Blood (TAJ) - Final, Complete LUCY VILLANUEVA DO Oct 20, 2020 15:38
--- NOTE | 2020-10-20 18:56 | REP ---
INDICATION: Assess stenosis TECHNIQUE: Carotid ultrasonography was performed bilaterally FINDINGS: Right: CCA systolic: 76.4 centimeters/second CCA diastolic: 9.3 centimeters/second ICA systolic: 28.3 centimeters/second ICA diastolic: 8.3 centimeters/second ICA CCA ratio: 0.37 Left: CCA systolic: 46.3 centimeters/second CCA diastolic: 9.3 centimeters/second ICA systolic: 55.6 centimeters/second ICA diastolic: 17.9 centimeters/second ICA CCA ratio: 1.2 Vertebral artery: Right: Antegrade flow left: Antegrade flow Minimal echogenic material is seen along the carotid arterial gordon bilaterally, small portion of which casts in acoustic shadow consistent with calcific deposition. IMPRESSION: According to the SRU criteria there is less than 50% stenosis of the internal carotid artery bilaterally. This is secondary to both calcified and noncalcified plaque formation <Electronically signed by Haim Figueroa > 10/20/20 3224
[2020-10-20] MEDS: AMITRIPTYLINE 50 MG TAB PO SCH (21:00)
--- NOTE | 2020-10-20 21:05 | REPVR ---
PROCEDURE INFORMATION: Exam: CT Head Without Contrast Exam date and time: 10/20/2020 8:12 PM Age: 65 years old Clinical indication: Condition or disease; Cerebrovascular disease; Other: Right mca occlusion; Additional info: 12h re-eval, right mca occlusion seen on cta head TECHNIQUE: Imaging protocol: Computed tomography of the head without contrast. Radiation optimization: All CT scans at this facility use at least one of these dose optimization techniques: automated exposure control; mA and/or kV adjustment per patient size (includes targeted exams where dose is matched to clinical indication); or iterative reconstruction. COMPARISON: CT Head without contrast 10/20/2020 8:15 AM FINDINGS: Brain: There is minimal patchy low attenuation of deep white matter with small area of subcortical decreased attenuation in the right parietal lobe which is unchanged. There is also slightly decreased attenuation extending superiorly and laterally from the right posterior horn of the internal capsule which is similar. There is slight prominence of the peripheral sulci. Cerebral ventricles: There is slight prominence of the central ventricular system. Paranasal sinuses: Visualized sinuses are unremarkable. No fluid levels. Mastoid air cells: Visualized mastoid air cells are well aerated. Bones/joints: Unremarkable. No acute fracture. Soft tissues: Unremarkable. IMPRESSION: 1. There has been no change since a study done earlier in the day. No interval hemorrhage. 2. Minimal chronic ischemic white matter change and atrophy with ill-defined areas of slightly decreased attenuation in the right cerebral hemisphere centrally and subcortical parietal lobe which are unchanged. Electronically signed by: Tayo Awad On 10/20/2020 21:05:01 PM
--- NOTE | 2020-10-20 23:19 | ECHO ---
ECHOCARDIOGRAM DATE OF PROCEDURE: 10/20/2020 Age: 65 Gender: Female Height: 163 cm Weight: 82 kg REFERRING PHYSICIAN: Dr. Wai Martínez INDICATION: Cerebrovascular accident MEASUREMENTS: IVS 1.5 cm LV 5.0 cm LVPW 1.4 cm LA 4.8 cm Aorta 4.0 cm Left atrium volume index 34 IVC 2.1 FINDINGS: This study is of adequate technical quality, patient is in atrial fibrillation with ventricular pacing.. Left ventricle is normal size. There is moderate left ventricular hypertrophy. There is atypical septal motion likely related to ventricular pacing. Overall ejection fraction was calculated as 57%, but by visual estimate I think it is slightly optimistic and I would estimate EF around 45 to 50%. Right ventricle does not appear grossly enlarged. There is severe biatrial enlargement. Echo artifacts consistent with ICD electrodes are apparent in right-sided heart chambers. Aortic valve is sclerotic but mobility of the cusps is preserved. There are also degenerative abnormalities of mitral valve with mitral annular calcifications, but mobility of leaflets is intact. Tricuspid and pulmonic valves are poorly visualized, but grossly appear normal. No pericardial effusion is noted. Inferior vena cava is dilated and there is reduced collapse with inspiration, indicative of high central venous pressure. Aortic root is dilated at 4.0 cm. Aortic arch and abdominal aorta were poorly visualized. Doppler interrogation reveals no aortic stenosis and trace insufficiency. There is mild to moderate mitral insufficiency and mild tricuspid insufficiency. Calculated pulmonary artery pressure is in 30's, corresponding to mild pulmonary hypertension. Mild pulmonary insufficiency is also noted. Based on color Doppler images, there is suspicion for left to right shunt across atrial septum, but this is by no means definitive. Evaluation of diastolic function is inconclusive due to underlying atrial fibrillation with ventricular pacing. Injection of agitated saline through peripheral vein revealed no evidence for right to left shunt. Negative "Bubble Study." CONCLUSIONS: 1. Study is of acceptable technical quality; underlying atrial fibrillation and ventricular pacing. 2. Normal LV size with moderate left ventricular hypertrophy and estimated LVEF of 45 to 50%. Septal wall motion abnormality likely related to pacing. 3. No hemodynamically significant aortic valvular disease in spite of prominent valvular sclerosis. 4. Mild to moderate mitral insufficiency. 5. Elevated central venous pressure and mild pulmonary hypertension. 6. Severe biatrial enlargement. 7. Suspicion for left to right shunt across atrial septum based on color Doppler imaging. 8. "Negative Bubble Study." MTDD
[2020-10-21 00:43] VITALS: BP 149/72
[2020-10-21] MEDS: NS 1,000 ML IV SCH ×3 (02:07→23:30)
[2020-10-21] MEDS: PIPERACILLIN/TAZOBACTAM SOD 3.375 GM in D5W MINI-BAG PLUS 50 ML IV SCH ×4 (04:17→22:31)
[2020-10-21] MEDS: SODIUM CHLORIDE 0.9% INJ 10 ML SYR IV SCH ×2 (05:46→17:36)
[2020-10-21 06:00] VITALS: BP 152/76
[2020-10-21 06:15] LABS: HEMATOCRIT 27.5 % (36.0-47.0); HEMOGLOBIN 8.4 g/dl (12.0-15.5); MEAN CORPUSCULAR HEMOGLOBIN 27.9 pg (27.0-33.0); MEAN CORPUSCULAR HGB CONC 30.5 g/dl (32.0-36.5); MEAN CORPUSCULAR VOLUME 91.4 fl (80.0-96.0); PLATELET COUNT, AUTOMATED 338 10^3/uL (150-450); RED BLOOD COUNT 3.01 10^6/uL (4.00-5.40); WHITE BLOOD COUNT 8.2 10^3/uL (4.0-10.0)
[2020-10-21 06:37] LABS: CALCIUM LEVEL 8.3 MG/DL (8.8-10.2); CREATININE FOR GFR 1.02 MG/DL (0.55-1.30); GLOMERULAR FILTRATION RATE 57.5 (>45); POTASSIUM SERUM 4.4 MEQ/L (3.5-5.1)
[2020-10-21 06:43] LABS: HEMOGLOBIN A1c 6.4 %
--- NOTE | 2020-10-21 08:24 | ECGEPIP ---
[facility] Test Date: 2020-10-20 Pat Name: ANTONIO ROWE Department: Room: [place] [address] Gender: Female [employer] Clerk: ONEYDA : 1955 Requested By: LUCY Gale Order Number: [id number] Reading MD: Doug Ballard Measurements Intervals [place] Rate: 63 P: NC: QRS: 134 QRSD: 168 T: -37 QT: 512 QTc: 523 Interpretive Statements underlying atrial fibrillation Consistent biventricular paced rhythm Less marked apical ST/T wave abnormalities from 10/05/20 Electronically Signed on 10-21-2020 8:24:19 EDT by Doug Ballard
[2020-10-21] MEDS ORDERED: VARIBAR PUDDING 40% w/v 230ML TUBE As Ordered ONE (12:11)
[2020-10-21] MEDS ORDERED: E-Z-PAQUE 96% w/w SUSP 176GM BTL As Ordered ONE (12:11)
[2020-10-21] MEDS ORDERED: VARIBAR NECTAR 40% w/v 240ML SUSP BTL As Ordered ONE (12:11)
[2020-10-21] MEDS ORDERED: BARIUM SULFATE 700 MG TABLET (E-Z-DISK) As Ordered ONE (12:12)
[2020-10-21] MEDS: FEBUXOSTAT 40 MG TABLET (ULORIC) PO SCH (14:28)
[2020-10-21] MEDS: MAGNESIUM OXIDE 400MG TAB (MAG-OX) PO SCH (14:28)
[2020-10-21] MEDS: LISINOPRIL *2.5 MG* TAB PO SCH (14:28)
[2020-10-21] MEDS: ASCORBIC ACID 500 MG TAB PO SCH (14:28)
[2020-10-21] MEDS: ASPIRIN 81MG ENTERIC TABLET PO SCH (14:28)
[2020-10-21] MEDS: PANTOPRAZOLE 40MG TAB (PROTONIX) PO SCH (14:28)
[2020-10-21] MEDS: SODIUM CHLORIDE 0.9% INJ 10 ML SYR IV PRN (15:22)
--- NOTE | 2020-10-21 15:26 | REP ---
INDICATION: Re-eval for CVA. COMPARISON: 10/20/2020 at 8:08 p.m. TECHNIQUE: 5 x 5 mm contiguous transaxial sections were obtained using helical technique from the skull base to the cerebral convexities with thin cuts through the posterior fossa without the administration of intravenous contrast. FINDINGS: There is a new area of decreased attenuation seen in the right lentiform nucleus posteriorly. This may be extending to the external capsule. There are no other significant deep white matter changes compared to the prior exam. There is no evidence of an acute intracranial hemorrhage. There is no shift of the midline structures. The ventricles and sulci are unchanged. The skull, imaged paranasal sinuses, and mastoid air cells are unchanged IMPRESSION: New area of abnormal decreased attenuation as described above consistent with an acute nonhemorrhagic infarction. MRI examination of the brain is recommended. <Electronically signed by Haim Figueroa > 10/21/20 1520
--- NOTE | 2020-10-21 16:49 | IPNPDOC ---
Subjective Date Seen The patient was seen on 10/21/20. Subjective Chief Complaint/HPI Mrs. 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 This morning, she was more vibrant. She spoke Albanian to me and understood what I was saying. She denied any chest pain or dyspnea. Left side still feels weaker than right, but facial droop resolved. ST worked with patient and recommended a safe diet. Son saw patient in the afternoon and noticed her speech was clearer. Repeated CT head today. Demonstrated an acute stroke located in the right lentiform nucleus posteriorly. Spoke with radiology, measured to be 17mm x 8mm x 11mm which is relatively small. Spoke with neurology. Okay to restart anticoagulation and bridge warfarin with aspirin. Otherwise, troponin had plateau and Cardiology interrogated pacer which was negative for shocks. Objective Physical Examination General Exam: Positive: Alert, Cooperative Eye Exam: Positive: EOMI; Negative: Sclera icteric Chest Exam: Positive: Other (Coarse breath sounds) Heart Exam: Positive: Bradycardic, Regular Rhythm Abdomen Exam: Positive: Normal bowel sounds, Soft; Negative: Tenderness Extremity Exam: Negative: Edema Skin Exam: Positive: Other skin issue (Large right heel pressure ulcer coverring the whole heel ) Neuro Exam: Positive: Normal Speech, Other (Left facial droop resolved); Negative: Strength at 5/5 X4 ext (Left arm weaker than right) Psych Exam: Positive: Mental status NL, Mood NL Assessment /Plan Assessment Mrs. 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 She will be on antibiotics for 6 weeks from 10/05/20. Otherwise, she had an acute right MCA stroke with left arm weakness, left facial droop, and slurred speech on 10/20/20. Discussed case with neurology who recommended serial CT head and aspirin. CT head on 10/21/20 demonstrated acute stroke in the right lentiform nucleus posteriorly measuring 17mm x 8mm x 11mm. This is relatively small and neurology is okay with restarting anticoagulation. Patient see Dr. Rasheed outpatient. Dr. Lazaro is hazard mitigation officer. He interrogated the pacemaker today which was negative for shocks. Troponin plateaued Plan/VTE VTE Prophylaxis Ordered?: Yes Plan 1. 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 Bone -Would cultures from the ED growing multiple organisms -ID consulted, recommending 6 weeks of antibiotics -Continues on Zosyn 2. Acute right MCA stroke with left arm weakness -Code stroke called on morning of 10/20/20. Last normal may have been at 1AM or previous night -Unable to obtain MRI due to pacemaker -Discussed case with Dr. Austin, recommending aspirin at this time and repeat CT head -CT head on 10/21/20 demonstrated acute stroke in the right lentiform nucleus posteriorly measuring 17mm x 8mm x 11mm. Relatively small -LDL of 96. HbA1c 6.4. Bubble study negative. US carotids <50% stenosis -Will need to allow for permissive hypertension with SBP between 140 to 180 for 48 hours -Most likely from atrial fibrillation, restarting anticoagulation today 3. Dysphagia -ST following -Recommend Level 2 diet, pudding thick liquids 4. Gram-negative bacteremia -Seen in 1 blood culture, grew Morganella -On Zosyn 5. Anemia -Anticoagulation held due to hemoglobin which dropped to 7.2. Hemoglobin better today -Spoke with Son/HCP about risks and benefits of blood transfusion. He is agreeable to blood transfusion if patient requires blood transfusion 6. DM -Discontinued insulin due to patient's NPO status -Continue FSBG 7. Hypertension -Will need to allow for permissive hypertension with BP between 140 to 180 for 48 hours -Holding Coreg, lisinopril, bumex, and amlodipine 8. Atrial fibrillation -Holding Coreg to allow for permissive hypertension -Okay to restart warfarin 9. Hyperlipidemia -Continue gemfibrozil and febuxostat 10. GERD -Continue protonix 11. Gout -Continue Uloric 12. CKD stage 3 -Creatinine at baseline 13. DVT ppx -Start Warfarin today, will need to continue SCD and TEDs until therapeutic levels reached Disposition: Pending clinical improvement VS, I&O, 24H, Fishbone Vital Signs/I&O Vital Signs Date Time Temp Pulse Resp B/P (MAP) Pulse Ox O2 Delivery O2 Flow Rate FiO2 10/21/20 14:28 148/73 10/21/20 06:00 97.7 57 18 98 Room Air I&O- Last 24 Hours up to 6 AM 10/21/20 06:00 Intake Total 900 ml Output Total 3000 ml Balance -2100 ml Laboratory Data 24H LABS Laboratory Tests 2 10/20/20 16:44: Bedside Glucose (Misc Panel) 143H 10/20/20 19:23: Bedside Glucose (Misc Panel) 150H 10/21/20 00:57: Bedside Glucose (Misc Panel) 125H 10/21/20 05:50: Nucleated Red Blood Cells % (auto) 0.0, Anion Gap 6L, Glomerular Filtration Rate 57.5, Estimated Mean Plasma Glucose 137H, Hemoglobin A1c 6.4, Calcium Level 8.3L CBC/BMP Laboratory Tests 10/21/20 05:50 Microbiology Microbiology 10/13/20 Stool Occult Blood (TAJ) - Final, Complete LUCY VILLANUEVA DO Oct 21, 2020 16:49
[2020-10-21] MEDS ORDERED: WARFARIN SOD 3MG TAB PO ONE (17:00)
[2020-10-21 22:00] VITALS: BP 148/73
[2020-10-21] MEDS: AMITRIPTYLINE 50 MG TAB PO SCH (22:31)
[2020-10-22] VITALS (10 sets, daily range): BP systolic 130–154; BP diastolic 62–78
[2020-10-22] MEDS: PIPERACILLIN/TAZOBACTAM SOD 3.375 GM in D5W MINI-BAG PLUS 50 ML IV SCH ×4 (03:16→21:05)
[2020-10-22] MEDS: SODIUM CHLORIDE 0.9% INJ 10 ML SYR IV SCH ×2 (06:23→18:00)
[2020-10-22 06:45] LABS: HEMATOCRIT 26.1 % (36.0-47.0); HEMOGLOBIN 8.1 g/dl (12.0-15.5); MEAN CORPUSCULAR VOLUME 90.3 fl (80.0-96.0); PLATELET COUNT, AUTOMATED 323 10^3/uL (150-450); RED BLOOD COUNT 2.89 10^6/uL (4.00-5.40); WHITE BLOOD COUNT 7.9 10^3/uL (4.0-10.0)
[2020-10-22 06:56] LABS: INR 1.18; PROTHROMBIN TIME 15.4 SECONDS (12.7-14.5)
[2020-10-22 07:07] LABS: BLOOD UREA NITROGEN 14 MG/DL (7-18); CALCIUM LEVEL 8.4 MG/DL (8.8-10.2); CARBON DIOXIDE LEVEL 21 MEQ/L (21-32); CHLORIDE LEVEL 111 MEQ/L (98-107); CREATININE FOR GFR 0.96 MG/DL (0.55-1.30); GLOMERULAR FILTRATION RATE > 60.0 (>45); GLUCOSE, FASTING 156 MG/DL (70-100); POTASSIUM SERUM 4.2 MEQ/L (3.5-5.1); SODIUM LEVEL 138 MEQ/L (136-145)
--- NOTE | 2020-10-22 08:55 | REP ---
INDICATION: dysphagia. COMPARISON: NONE TECHNIQUE: The procedure was performed under the direct supervision of . The procedure was performed with Aziza Betancourt from speech pathology present. 1.8 minutes of fluoroscopy time was utilized for this procedure. FINDINGS: The patient was assessed upon entering the room. The patient is in an upright position and conversing appropriately. A video pharyngo esophagram was then performed. Various consistencies of barium were then given in 5 cc aliquots. Honey consistency: The patient is able to form a bolus. There is delayed triggering with pooling in the vallecula. There is flash laryngeal penetration. This cleared with the initial swallowing mechanism. Passavant's pad karina and shifted normally with no nasopharyngeal aspiration. Pudding consistency: The patient was able to form a bolus by cupping of the tongue and manipulated the bolus well. There is delayed triggering. There is no laryngeal penetration or aspiration identified. Passavant's pad karina and shifted normally with no nasopharyngeal aspiration. Mixed fruit with pudding consistency base: The patient was able to form a bolus by cupping of the tongue and manipulated the bolus well. There is delayed triggering with pooling in the vallecula with significant laryngeal penetration which clears with the initial swallowing mechanism. Passavant's pad karina and shifted anteriorly normally with no nasopharyngeal aspiration. Soft consistency: The patient was able to form a bolus by cupping of the tongue and manipulated the bolus well. There is delayed triggering. Patient was able to clear the bolus without evidence of penetration or aspiration. Passavant's pad karina and shifted anteriorly normally with no nasopharyngeal aspiration. The patient was then given two 5 cc aliquots of honey consistency barium: On the 1st aliquot the patient is able to form a bolus. There is delayed triggering with pooling in the vallecula. Patient was able to clear this without evidence of penetration or aspiration. On the 2nd aliquot there is, again, delayed triggering and pooling in the vallecular. There is laryngeal penetration. Passavant's pad karina and shifted anteriorly normally with no nasopharyngeal aspiration. IMPRESSION: Recommendation: The patient is able to be given all consistencies performed today. However, there is an increase risk with ingestion of all food because of delayed triggering and pooling in the vallecula. <Electronically signed by Rasheed Salcido > 10/21/20 [id number] <Electronically signed by Haim Figueroa > 10/22/20 2539
[2020-10-22] MEDS: NS 1,000 ML IV SCH ×2 (09:11→20:00)
[2020-10-22] MEDS: FEBUXOSTAT 40 MG TABLET (ULORIC) PO SCH (09:27)
[2020-10-22] MEDS: HumaLOG INSULIN (NovoLOG) PER UNIT SC SCH ×4 (09:27→20:55)
[2020-10-22] MEDS: ASCORBIC ACID 500 MG TAB PO SCH (09:28)
[2020-10-22] MEDS: PANTOPRAZOLE 40MG TAB (PROTONIX) PO SCH (09:28)
[2020-10-22] MEDS: ASPIRIN 81MG ENTERIC TABLET PO SCH (09:28)
--- NOTE | 2020-10-22 09:28 | IPNPDOC ---
Subjective Date Seen The patient was seen on 10/22/20. Subjective Chief Complaint/HPI Mrs. 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 She was then found to have acute right lentiform nucleus CVA. This morning, she was feeling better. She denies chest pain or dyspnea. She notes that she has some fine motor difficulty in using her iPad and feeding herself. Otherwise, working on reaching INR goal. Objective Physical Examination General Exam: Positive: Alert, Cooperative Eye Exam: Positive: EOMI; Negative: Sclera icteric Chest Exam: Positive: Other (Coarse breath sounds) Heart Exam: Positive: Bradycardic, Regular Rhythm Abdomen Exam: Positive: Normal bowel sounds, Soft; Negative: Tenderness Extremity Exam: Negative: Edema Skin Exam: Positive: Other skin issue (Large right heel pressure ulcer coverring the whole heel ) Neuro Exam: Positive: Normal Speech, Other (Left facial droop resolved); Negative: Strength at 5/5 X4 ext (Left arm weaker than right) Psych Exam: Positive: Mental status NL, Mood NL Assessment /Plan Assessment Mrs. 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 She will be on antibiotics for 6 weeks from 10/05/20. Otherwise, she had an acute right MCA stroke with left arm weakness, left facial droop, and slurred speech on 10/20/20. Discussed case with neurology who recomme nded serial CT head and aspirin. CT head on 10/21/20 demonstrated acute stroke in the right lentiform nucleus posteriorly measuring 17mm x 8mm x 11mm. This is relatively small and neurology is okay with restarting anticoagulation. Patient see Dr. Rasheed outpatient, but Dr. Lazaro was the one formulation scientist. He interrogated the pacemaker which was negative for ICD shocks. Troponin plateaued. Plan/VTE VTE Prophylaxis Ordered?: Yes Plan 1. 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 Bone -Would cultures from the ED growing multiple organisms -ID consulted, recommending 6 weeks of antibiotics -Continues on Zosyn 2. Acute right MCA stroke with left arm weakness -Code stroke called on morning of 10/20/20. Last normal may have been at 1AM or previous night -Unable to obtain MRI due to pacemaker -Discussed case with Dr. Austin, recommending aspirin at this time and repeat CT head -CT head on 10/21/20 demonstrated acute stroke in the right lentiform nucleus posteriorly measuring 17mm x 8mm x 11mm. Relatively small -LDL of 96. HbA1c 6.4. Bubble study negative. US carotids <50% stenosis -Continue with permissive hypertension through today, started blood pressure medication tomorrow -Continue aspirin and warfarin 3. Dysphagia -ST following -Recommend Level 2 diet, pudding thick liquids 4. Gram-negative bacteremia -Seen in 1 blood culture, grew Morganella -On Zosyn 5. Anemia -Anticoagulation held due to hemoglobin which dropped to 7.2. Hemoglobin better today -Spoke with Son/HCP about risks and benefits of blood transfusion. He is agreeable to blood transfusion if patient requires blood transfusion 6. DM -Patient on diet -Sliding scale insulin 7. Hypertension -Continue permissive hypertension today, restart antihypertensives tomorrow -Holding Coreg, lisinopril, bumex, and amlodipine 8. Atrial fibrillation -Holding Coreg to allow for permissive hypertension -Continue Warfarin for INR goal of 2 9. Hyperlipidemia -Continue gemfibrozil and febuxostat 10. GERD -Continue protonix 11. Gout -Continue Uloric 12. CKD stage 3 -Creatinine at baseline 13. DVT ppx -Continue Warfarin, will need to continue SCD and TEDs until therapeutic levels reached Disposition: Pending reaching therapeutic levels of warfarin, goal INR 2 to 3. Finish permissive hypertension today. Plan to restart antihypertensives tomorrow. VS, I&O, 24H, [facility] Vital Signs/I&O Vital Signs Date Time Temp Pulse Resp B/P (MAP) Pulse Ox O2 Delivery O2 Flow Rate FiO2 10/22/20 07:39 97.8 62 17 147/70 (95) 98 Room Air I&O- Last 24 Hours up to 6 AM 10/22/20 06:00 Intake Total 1860 ml Output Total 995 ml Balance 865 ml Laboratory Data 24H LABS Laboratory Tests 2 10/21/20 20:32: Bedside Glucose (Misc Panel) 189H 10/22/20 03:20: Urine Color YELLOW, Urine Appearance HAZY, Urine pH 5.0, Urine Specific [place] 1.025, Urine Protein 2+H, Urine Glucose (UA) 1+H, Urine Ketones NEGATIVE, Urine Blood 2+H, Urine Nitrite NEGATIVE, Urine Bilirubin NEGATIVE, Urine Urobilinogen 0.2, Urine Leukocyte Esterase NEGATIVE, Urine WBC (Auto) 2, Urine RBC (Auto) 22H, Urine Hyaline Casts (Auto) 0, Urine Bacteria (Auto) NEGATIVE, Urine Squamous Epithelial Cells 0, Urine Mucus (Auto) SMALL, Urine Yeast-Like Cells (Auto) SMALLH, Urine Sperm (Auto) 10/22/20 06:27: Nucleated Red Blood Cells % (auto) 0.0, Prothrombin Time 15.4H, Prothromb Time International Ratio 1.18, Anion Gap 6L, Glomerular Filtration Rate > 60.0, Calcium Level 8.4L CBC/BMP Laboratory Tests 10/22/20 06:27 Microbiology Microbiology 10/13/20 Stool Occult Blood (TAJ) - Final, Complete LUCY VILLANUEVA DO Oct 22, 2020 09:28
--- NOTE | 2020-10-22 12:06 | REP ---
INDICATION: AMS/lethargy. COMPARISON: 10/21/2020 TECHNIQUE: Routine scans without contrast. FINDINGS: No displacement of midline structures. Low-attenuation area involving the external capsule and lenticular form nucleus on the right side slightly larger than on yesterday's examination. No evidence of hemorrhage or mass effect. Posterior fossa unremarkable. IMPRESSION: Who ventricular nucleus and external capsule nonhemorrhagic infarct showing slight increase when compared with yesterday's examination. No evidence of hemorrhage or mass effect. <Electronically signed by Onesimo Manuel > 10/22/20 1201
[2020-10-22 12:25] LABS: BASO # 0.1 10^3/uL (0.0-0.2); BASO % 1.1 % (0.0-1.0); EOS # 0.5 10^3/uL (0.0-0.5); EOS % 5.8 % (0.0-3.0); HEMATOCRIT 26.5 % (36.0-47.0); HEMOGLOBIN 8.2 g/dl (12.0-15.5); LYMPH # 1.1 10^3/uL (1.5-5.0); LYMPH % 13.8 % (24.0-44.0); MEAN CORPUSCULAR HEMOGLOBIN 28.3 pg (27.0-33.0); MEAN CORPUSCULAR HGB CONC 30.9 g/dl (32.0-36.5); MEAN CORPUSCULAR VOLUME 91.4 fl (80.0-96.0); MONO % 12.9 % (2.0-8.0); NEUTROPHILS # 5.2 10^3/uL (1.5-8.5); NEUTROPHILS % 65.9 % (36.0-66.0); PLATELET COUNT, AUTOMATED 311 10^3/uL (150-450)
[2020-10-22 13:04] LABS: BLOOD UREA NITROGEN 14 MG/DL (7-18); CALCIUM LEVEL 8.4 MG/DL (8.8-10.2); CARBON DIOXIDE LEVEL 21 MEQ/L (21-32); CHLORIDE LEVEL 111 MEQ/L (98-107); CREATININE FOR GFR 0.96 MG/DL (0.55-1.30); GLOMERULAR FILTRATION RATE > 60.0 (>45); GLUCOSE, FASTING 154 MG/DL (70-100); MAGNESIUM LEVEL 2.2 MG/DL (1.8-2.4); POTASSIUM SERUM 4.2 MEQ/L (3.5-5.1); SODIUM LEVEL 138 MEQ/L (136-145); TROPONIN I 0.25 NG/ML (< 0.10)
--- NOTE | 2020-10-22 14:09 | ECGEPIP ---
[facility] Test Date: 2020-10-22 Pat Name: ANTONIO ROWE Department: Room: [place] [address] Gender: Female Lubricating Specialist: ONEYDA : 1955 Requested By: LUCY Gale Order Number: [id number] Reading MD: Doug Ballard Measurements Intervals [place] Rate: 60 P: MS: QRS: 142 QRSD: 162 T: -34 QT: 520 QTc: 520 Interpretive Statements underlying atrial fibrillation Consistent biventricular paced rhythm No change from 10/20/20 Electronically Signed on 10-22-2020 14:09:09 EDT by Doug Ballard
[2020-10-22] MEDS ORDERED: WARFARIN SOD 5MG TAB PO ONE (17:00)
[2020-10-22] MEDS: SODIUM CHLORIDE 0.9% INJ 10 ML SYR IV PRN ×3 (19:49→23:02)
[2020-10-22] MEDS ORDERED: IPRATROPIUM 0.5MG/ALBUTEROL 2.5MG INH SOL UD 3ML (DUONEB) NEB ONE (20:45)
[2020-10-22] MEDS: AMITRIPTYLINE 50 MG TAB PO SCH (21:05)
--- NOTE | 2020-10-22 22:01 | REPVR ---
PROCEDURE INFORMATION: Exam: XR Chest Exam date and time: 10/22/20 (8:50pm) Age: 65 years old Clinical indication: Dyspnea and SOB TECHNIQUE: Imaging protocol: Portable CXR Views: 1 view COMPARISON: Chest films of 10/20/20 (8:50pm) FINDINGS: Comparison is made with chest films done 2 days ago. The patient is slightly rotated to an WILSON projection. Stable cardiomegaly. Aortic knob calcifications. Cardiac electrodes remain in place (pacemaker and ICD combination). Prominent lung markings, bilaterally. No consolidation. No pleural effusions. A right-sided PICC line remains (stable position). IMPRESSION: Stable cardiomegaly. Cardiac electrodes remain in place Prominent lung markings -- perhaps [id number] vascular congestion. Diffuse interstitial pneumonitis cannot be excluded. Clinical correlation is needed. Follow-up is suggested, as symptoms warrant. Electronically signed by: Carol Albrecht On 10/22/2020 22:00:46 PM
[2020-10-23 02:00] VITALS: BP 153/75
[2020-10-23] MEDS: SODIUM CHLORIDE 0.9% INJ 10 ML SYR IV PRN ×6 (02:00→23:31)
[2020-10-23 02:20] LABS: HEMATOCRIT 26.7 % (36.0-47.0); HEMOGLOBIN 8.3 g/dl (12.0-15.5); MEAN CORPUSCULAR HEMOGLOBIN 28.2 pg (27.0-33.0); MEAN CORPUSCULAR HGB CONC 31.1 g/dl (32.0-36.5); MEAN CORPUSCULAR VOLUME 90.8 fl (80.0-96.0); PLATELET COUNT, AUTOMATED 332 10^3/uL (150-450); RED BLOOD COUNT 2.94 10^6/uL (4.00-5.40); WHITE BLOOD COUNT 8.7 10^3/uL (4.0-10.0)
[2020-10-23 02:34] LABS: INR 1.33; PROTHROMBIN TIME 16.9 SECONDS (12.7-14.5)
[2020-10-23 02:45] LABS: BLOOD UREA NITROGEN 12 MG/DL (7-18); CALCIUM LEVEL 8.2 MG/DL (8.8-10.2); CARBON DIOXIDE LEVEL 21 MEQ/L (21-32); CHLORIDE LEVEL 111 MEQ/L (98-107); CREATININE FOR GFR 0.95 MG/DL (0.55-1.30); GLOMERULAR FILTRATION RATE > 60.0 (>45); GLUCOSE, FASTING 156 MG/DL (70-100); POTASSIUM SERUM 4.2 MEQ/L (3.5-5.1); SODIUM LEVEL 138 MEQ/L (136-145)
[2020-10-23] MEDS: PIPERACILLIN/TAZOBACTAM SOD 3.375 GM in D5W MINI-BAG PLUS 50 ML IV SCH ×4 (05:05→21:51)
[2020-10-23 06:00] VITALS: BP 154/74
[2020-10-23] MEDS: SODIUM CHLORIDE 0.9% INJ 10 ML SYR IV SCH ×2 (06:34→19:15)
[2020-10-23] MEDS: MAGNESIUM OXIDE 400MG TAB (MAG-OX) PO SCH (08:56)
[2020-10-23] MEDS: PANTOPRAZOLE 40MG TAB (PROTONIX) PO SCH (08:56)
[2020-10-23] MEDS: FEBUXOSTAT 40 MG TABLET (ULORIC) PO SCH (08:56)
[2020-10-23] MEDS: ASPIRIN 81MG ENTERIC TABLET PO SCH (08:56)
[2020-10-23] MEDS: ASCORBIC ACID 500 MG TAB PO SCH (08:56)
[2020-10-23] MEDS: HumaLOG INSULIN (NovoLOG) PER UNIT SC SCH ×4 (08:58→21:00)
--- NOTE | 2020-10-23 09:37 | IPNPDOC ---
Subjective Date Seen The patient was seen on 10/23/20. Subjective Chief Complaint/HPI Mrs. 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 She was then found to have acute right lentiform nucleus CVA. Last night, due to the increase in IVF, she became fluid overloaded and dyspneic. Troponin was trending upward. IVF was discontinued. This morning, she was feeling better and breathing better. Denies chest pain. Will continue trending troponin. Objective Physical Examination General Exam: Positive: Alert, Cooperative Eye Exam: Positive: EOMI; Negative: Sclera icteric Chest Exam: Positive: Diminished Heart Exam: Positive: Rate Normal, Regular Rhythm Abdomen Exam: Positive: Normal bowel sounds, Soft; Negative: Tenderness Extremity Exam: Negative: Edema Skin Exam: Positive: Other skin issue (Large right heel pressure ulcer coverring the whole heel ) Neuro Exam: Positive: Normal Speech, Other (Left facial droop resolved); Negative: Strength at 5/5 X4 ext (Left arm weaker than right) Psych Exam: Positive: Mental status NL, Mood NL Assessment /Plan Assessment Mrs. 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 She will be on antibiotics for 6 weeks from 10/05/20. Otherwise, she had an acute right MCA stroke with left arm weakness, left facial droop, and slurred speech on 10/20/20. Discussed case with neurology who recommended serial CT head and aspirin. CT head on 10/21/[address] roke in the right lentiform nucleus posteriorly measuring 17mm x 8mm x 11mm. This is relatively small and neurology is okay with restarting anticoagulation. Code stroke was called again on 10/22/20. CT head was repeated and demonstrated a slight increase in the stroke area. Spoke with Dr. Austin. Recommended continuing permissive hypertension and she may need more perfusion to brain. Patient see Dr. Rasheed outpatient, but Dr. Lazaro was the one electronics technician. He interrogated the pacemaker which was negative for ICD shocks. Will continue trending troponin Plan/VTE VTE Prophylaxis Ordered?: Yes Plan 1. 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 Bone -Would cultures from the ED growing multiple organisms -ID consulted, recommending 6 weeks of antibiotics -Continues on Zosyn 2. Acute right MCA stroke with left arm weakness -Code stroke called on morning of 10/20/20. Last normal may have been at 1AM or previous night -Unable to obtain MRI due to pacemaker -Discussed case with Dr. Austin, recommending aspirin at this time and repeat CT head -CT head on 10/21/20 demonstrated acute stroke in the right lentiform nucleus posteriorly measuring 17mm x 8mm x 11mm. Relatively small -LDL of 96. HbA1c 6.4. Bubble study negative. US carotids <50% stenosis -Continue with permissive hypertension -Continue aspirin and warfarin 3. Dysphagia -ST following -Recommend Level 2 diet, pudding thick liquids 4. NSTEMI -Patient denied chest pain -Continue trending troponin 5. Gram-negative bacteremia -Seen in 1 blood culture, grew Morganella -On Zosyn 6. Anemia -Anticoagulation held due to hemoglobin which dropped to 7.2. Hemoglobin stabilized around 8 now -Spoke with Son/HCP about risks and benefits of blood transfusion. He is agreeable to blood transfusion if patient requires blood transfusion 7. DM -Patient on diet -Sliding scale insulin 8. Hypertension -Continue permissive hypertension -Holding Coreg, lisinopril, bumex, and amlodipine 9. Atrial fibrillation -Holding Coreg to allow for permissive hypertension -Continue Warfarin for INR goal of 2 10. Hyperlipidemia -Continue gemfibrozil and febuxostat 11. GERD -Continue protonix 12. Gout -Continue Uloric 13. CKD stage 3 -Creatinine at baseline 14. DVT ppx -Continue Warfarin, will need to continue SCD and TEDs until therapeutic levels reached Plan: Continue with permissive hypertension. Continue with warfarin, goal INR between 2 to 3. VS, I&O, 24H, Fishbone Vital Signs/I&O Vital Signs Date Time Temp Pulse Resp B/P (MAP) Pulse Ox O2 Delivery O2 Flow Rate FiO2 10/23/20 06:00 98.3 62 18 154/74 (100) 97 Room Air I&O- Last 24 Hours up to 6 AM 10/23/20 06:00 Intake Total 1825 ml Output Total 1175 ml Balance 650 ml Laboratory Data 24H LABS Laboratory Tests 2 10/22/20 11:28: Bedside Glucose (Misc Panel) 170H 10/22/20 12:06: Immature Granulocyte % (Auto) 0.5, Neutrophils (%) (Auto) 65.9, Lymphocytes (%) (Auto) 13.8L, Monocytes (%) (Auto) 12.9H, Eosinophils (%) (Auto) 5.8H, Basophils (%) (Auto) 1.1H, Neutrophils # (Auto) 5.2, Lymphocytes # (Auto) 1.1L, Monocytes # (Auto) 1.0H, Eosinophils # (Auto) 0.5, Basophils # (Auto) 0.1, Nucleated Red Blood Cells % (auto) 0.0, Anion Gap 6L, Glomerular Filtration Rate > 60.0, Calcium Level 8.4L, Magnesium Level 2.2, Troponin I 0.25H 10/22/20 16:16: Bedside Glucose (Misc Panel) 188H 10/22/20 19:05: Bedside Glucose (Misc Panel) 201H 10/22/20 19:48: Troponin I 0.38#H 10/22/20 20:23: Bedside Glucose (Misc Panel) 169H 10/22/20 21:15: LE-Exc-Z-Type Natriuretic Peptide 9590H 10/22/20 23:06: Troponin I 0.41H 10/23/20 02:08: Nucleated Red Blood Cells % (auto) 0.0, Prothrombin Time 16.9H, Prothromb Time International Ratio 1.33, Anion Gap 6L, Glomerular Filtration Rate > 60.0, Calcium Level 8.2L, Troponin I 0.44H 10/23/20 06:39: Bedside Glucose (Misc Panel) 160H CBC/BMP Laboratory Tests 10/22/20 12:06 10/23/20 02:08 Microbiology Microbiology 10/13/20 Stool Occult Blood (TAJ) - Final, Complete LUCY VILLANUEVA DO Oct 23, 2020 09:37
[2020-10-23 14:00] VITALS: BP 150/60
[2020-10-23] MEDS ORDERED: WARFARIN SOD 7.5MG TAB PO ONE (17:00)
[2020-10-23] MEDS: AMITRIPTYLINE 50 MG TAB PO SCH (21:10)
[2020-10-23 22:00] VITALS: BP 155/93
[2020-10-24] MEDS: PIPERACILLIN/TAZOBACTAM SOD 3.375 GM in D5W MINI-BAG PLUS 50 ML IV SCH ×4 (04:18→22:08)
[2020-10-24] MEDS: SODIUM CHLORIDE 0.9% INJ 10 ML SYR IV SCH ×2 (05:51→17:51)
[2020-10-24 06:00] VITALS: BP 157/90
[2020-10-24 06:04] LABS: HEMOGLOBIN 8.4 g/dl (12.0-15.5); MEAN CORPUSCULAR HEMOGLOBIN 28.4 pg (27.0-33.0); MEAN CORPUSCULAR HGB CONC 31.1 g/dl (32.0-36.5); MEAN CORPUSCULAR VOLUME 91.2 fl (80.0-96.0); PLATELET COUNT, AUTOMATED 321 10^3/uL (150-450); RED BLOOD COUNT 2.96 10^6/uL (4.00-5.40); WHITE BLOOD COUNT 9.9 10^3/uL (4.0-10.0)
[2020-10-24 06:15] LABS: INR 2.27; PROTHROMBIN TIME 25.4 SECONDS (12.7-14.5)
[2020-10-24 06:32] LABS: BLOOD UREA NITROGEN 14 MG/DL (7-18); CALCIUM LEVEL 8.6 MG/DL (8.8-10.2); CARBON DIOXIDE LEVEL 21 MEQ/L (21-32); CHLORIDE LEVEL 110 MEQ/L (98-107); CREATININE FOR GFR 0.94 MG/DL (0.55-1.30); GLOMERULAR FILTRATION RATE > 60.0 (>45); GLUCOSE, FASTING 179 MG/DL (70-100); POTASSIUM SERUM 4.3 MEQ/L (3.5-5.1); SODIUM LEVEL 140 MEQ/L (136-145)
[2020-10-24] MEDS: PANTOPRAZOLE 40MG TAB (PROTONIX) PO SCH (08:47)
[2020-10-24] MEDS: ASPIRIN 81MG ENTERIC TABLET PO SCH (08:47)
[2020-10-24] MEDS: ASCORBIC ACID 500 MG TAB PO SCH (08:47)
[2020-10-24] MEDS: FEBUXOSTAT 40 MG TABLET (ULORIC) PO SCH (08:47)
[2020-10-24] MEDS: HumaLOG INSULIN (NovoLOG) PER UNIT SC SCH ×4 (08:48→21:00)
[2020-10-24] MEDS: SODIUM CHLORIDE 0.9% INJ 10 ML SYR IV PRN ×2 (08:55→23:28)
--- NOTE | 2020-10-24 11:11 | ECGEPIP ---
[facility] Test Date: 2020-10-22 Pat Name: ANTONIO ROWE Department: Room: [place] [address] Gender: Female Compensation Advisor: FRANSICO : 1955 Requested By: JULIO Gale Order Number: [id number] Reading MD: Doug Ballard Measurements Intervals [place] Rate: 60 P: MD: QRS: 146 QRSD: 160 T: -70 QT: 490 QTc: 490 Interpretive Statements underlying atrial fibrillation with consistent ventricular pacing QRS morphology consistent with biventricular stimulation No change from earlier the same day Electronically Signed on 10-24-2020 11:11:14 EDT by Doug Ballard
[2020-10-24 14:00] VITALS: BP 157/87
--- NOTE | 2020-10-24 14:01 | IPNPDOC ---
Subjective Date Seen The patient was seen on 10/24/20. Subjective Chief Complaint/HPI Mrs. 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 She was then found to have acute right lentiform nucleus CVA. This morning, she denies any chest pain or dyspnea. INR has reached goal. Otherwise, I had requested general surgery yesterday to take a look at her right heel for debridement Objective Physical Examination General Exam: Positive: Alert, Cooperative Eye Exam: Positive: EOMI; Negative: Sclera icteric Chest Exam: Positive: Diminished Heart Exam: Positive: Rate Normal, Regular Rhythm Abdomen Exam: Positive: Normal bowel sounds, Soft; Negative: Tenderness Extremity Exam: Negative: Edema Skin Exam: Positive: Other skin issue (Large right heel pressure ulcer coverring the whole heel ) Neuro Exam: Positive: Normal Speech, Other (Left facial droop resolved); Negative: Strength at 5/5 X4 ext (Left arm weaker than right) Psych Exam: Positive: Mental status NL, Mood NL Assessment /Plan Assessment Mrs. 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 She will be on antibiotics for 6 weeks from 10/05/20. Otherwise, she had an acute right MCA stroke with left arm weakness, left facial droop, and slurred speech on 10/20/20. Discussed case with neurology who recommended serial CT head and aspirin. CT head on 10/21/20 demonstrated acute stroke in the right lentiform nucleus posteriorly measuring 17mm x 8mm x 11mm. This is relatively small and neurology is okay with restarting anticoagulation. Code stroke was called again on 10/22/20. CT head was repeated and demonstrated a slight increase in the stroke area. Spoke with Dr. Austin. Recommended continuing permissive hypertension and she may need more perfusion to brain. Patient see Dr. Rasheed outpatient, but Dr. Lazaro was the one director of industrial relations. He interroga andres the pacemaker which was negative for ICD shocks. Troponin plateau Plan/VTE VTE Prophylaxis Ordered?: Yes Plan 1. 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 Bone -Would cultures from the ED growing multiple organisms -ID consulted, recommending 6 weeks of antibiotics -Continues on Zosyn 2. Acute right MCA stroke with left arm weakness -Code stroke called on morning of 10/20/20. Last normal may have been at 1AM or previous night -Unable to obtain MRI due to pacemaker -Discussed case with Dr. Austin, recommending aspirin at this time and repeat CT head -CT head on 10/21/20 demonstrated acute stroke in the right lentiform nucleus posteriorly measuring 17mm x 8mm x 11mm. Relatively small -LDL of 96. HbA1c 6.4. Bubble study negative. US carotids <50% stenosis -Continue with permissive hypertension -Continue aspirin and warfarin 3. Dysphagia -ST following -Recommend Level 2 diet, pudding thick liquids 4. NSTEMI -Patient denied chest pain -Continue trending troponin 5. Gram-negative bacteremia -Seen in 1 blood culture, grew Morganella -On Zosyn 6. Anemia -Anticoagulation held due to hemoglobin which dropped to 7.2. Hemoglobin stabilized around 8 now -Spoke with Son/HCP about risks and benefits of blood transfusion. He is agr eeable to blood transfusion if patient requires blood transfusion 7. DM -Patient on diet -Sliding scale insulin 8. Hypertension -Continue permissive hypertension -Holding Coreg, lisinopril, bumex, and amlodipine 9. Atrial fibrillation -Holding Coreg to allow for permissive hypertension -Continue Warfarin for INR goal of 2 10. Hyperlipidemia -Continue gemfibrozil and febuxostat 11. GERD -Continue protonix 12. Gout -Continue Uloric 13. CKD stage 3 -Creatinine at baseline 14. DVT ppx -Warfarin is at goal. Will discontinue SCD and TEDs Plan: Continue with permissive hypertension. Pending foot debridement VS, I&O, 24H, Fishbone Vital Signs/I&O Vital Signs Date Time Temp Pulse Resp B/P (MAP) Pulse Ox O2 Delivery O2 Flow Rate FiO2 10/24/20 06:00 98.2 60 18 157/90 (112) 98 Room Air I&O- Last 24 Hours up to 6 AM 10/24/20 06:00 Intake Total 430 ml Output Total 300 ml Balance 130 ml Laboratory Data 24H LABS Laboratory Tests 2 10/23/20 14:40: Troponin I 0.44H 10/23/20 16:41: Bedside Glucose (Misc Panel) 193H 10/23/20 21:01: Bedside Glucose (Misc Panel) 195H 10/24/20 05:42: Nucleated Red Blood Cells % (auto) 0.2H, Prothrombin Time 25.4H, Prothromb Time International Ratio 2.27, Anion Gap 9, Glomerular Filtration Rate > 60.0, Calcium Level 8.6L 10/24/20 11:43: Bedside Glucose (Misc Panel) 177H CBC/BMP Laboratory Tests 10/24/20 05:42 LUCY VILLANUEVA DO Oct 24, 2020 14:01
[2020-10-24] MEDS ORDERED: WARFARIN SOD 3MG TAB PO ONE (17:00)
--- NOTE | 2020-10-24 19:14 | IPN ---
PROGRESS NOTE DATE: 10/24/2020 HISTORY: Patient is a 65-year-old woman with multiple medical problems. She has diabetes as a primary problem with peripheral neuropathy and retinopathy. She has hypertension, hyperlipidemia, coronary artery disease, atrial fibrillation and was admitted initially approximately 2-1/2 to 3 weeks ago with right heel osteomyelitis. She underwent a debridement including a partial resection of the calcaneus by Dr. Bone. He has been out of town and she was seen by Dr. Lakhani in his absence on October 17, 2020. Dr. Martínez of the hospitalist service asked me to check her wound because of concerns about increased debris in or around the wound. She has had a wound vacuum assisted closure (VAC) in place with a low pressure setting and this was removed yesterday, and she was put on wet to dry dressings, though it has not been changed since yesterday. PHYSICAL EXAMINATION: VITAL SIGNS: Show that the patient has been afebrile over the past 24 hours. Her pulse is at about 60 and her blood pressure is acceptable with a normal room air oxygen saturation. INTAKE AND OUTPUT: Intake and output is relatively balanced, according to what is recorded in her record. PHYSICAL EXAM: Patient is lying in the hospital bed. She has support boots on both lower extremities. The patient is awake and alert and appears fairly comfortable. EXTREMITIES: The nurse removed the dressing from the right heel and I examined this. Her examination was otherwise limited to her foot and the wound of her heel. Examination shows an approximately 7 cm transversely wound across the posterior aspect of the heel. There is a longitudinal opening extending from this wound up the back of the heel slightly. There is a small amount of greenish-yellow exudate along the base of the wound and on both edges of the wound. I do not feel the bone of the heel directly. The tissues appear viable, though it is a little more difficult to assess the tissue in the base of the wound. There is no significant redness of the wound edges. LABORATORY STUDIES: Today show a white count of 10, hemoglobin 8, hematocrit 27 and a platelet count of 321,000. These numbers are quite stable over the past week, at least. Her chemistries today show a glucose of 179. Her most recent C-reactive protein was on October 12, 2020 and was 6.4. IMPRESSION: I do not think that the wound at this point requires any further sharp debridement. I think we need to go back to the wound vacuum assisted closure (VAC) for care of this wound. Apparently, she had been dressed with some white foam in the base of the wound and some black foam over that with the pressure setting at a low level of 75. There was concern expressed by the nurse assisting me today that this did not seem to drain the fluid from the wound adequately. PLAN: I have recommended that we return to use of the wound VAC using just black foam within the wound. I have changed the wound VAC setting to 125 mmHg. This should be on a continuous setting. I will reassess the wound tomorrow and change it at that point to see how it looks then. I suspect that this will be adequate and that at least, for now, she will not require any further debridement. DEVENDRA
[2020-10-24 22:00] VITALS: BP 177/84
[2020-10-24] MEDS: AMITRIPTYLINE 50 MG TAB PO SCH (22:08)
[2020-10-25] MEDS: PIPERACILLIN/TAZOBACTAM SOD 3.375 GM in D5W MINI-BAG PLUS 50 ML IV SCH ×4 (04:27→22:35)
[2020-10-25 05:00] LABS: HEMATOCRIT 27.4 % (36.0-47.0); HEMOGLOBIN 8.3 g/dl (12.0-15.5); MEAN CORPUSCULAR HEMOGLOBIN 27.7 pg (27.0-33.0); MEAN CORPUSCULAR HGB CONC 30.3 g/dl (32.0-36.5); MEAN CORPUSCULAR VOLUME 91.3 fl (80.0-96.0); PLATELET COUNT, AUTOMATED 345 10^3/uL (150-450); WHITE BLOOD COUNT 10.4 10^3/uL (4.0-10.0)
[2020-10-25 05:11] LABS: INR 4.51; PROTHROMBIN TIME 42.9 SECONDS (12.7-14.5)
[2020-10-25 05:22] LABS: CALCIUM LEVEL 8.6 MG/DL (8.8-10.2); GLOMERULAR FILTRATION RATE 58.9 (>45); POTASSIUM SERUM 4.4 MEQ/L (3.5-5.1)
[2020-10-25] MEDS: SODIUM CHLORIDE 0.9% INJ 10 ML SYR IV SCH ×2 (05:57→17:11)
[2020-10-25] MEDS: ASCORBIC ACID 500 MG TAB PO SCH (08:52)
[2020-10-25] MEDS: MAGNESIUM OXIDE 400MG TAB (MAG-OX) PO SCH (08:52)
[2020-10-25] MEDS: ASPIRIN 81MG ENTERIC TABLET PO SCH (08:52)
[2020-10-25] MEDS: PANTOPRAZOLE 40MG TAB (PROTONIX) PO SCH (08:53)
[2020-10-25] MEDS: HumaLOG INSULIN (NovoLOG) PER UNIT SC SCH ×4 (08:53→20:08)
[2020-10-25] MEDS: FEBUXOSTAT 40 MG TABLET (ULORIC) PO SCH (08:55)
[2020-10-25] MEDS: SODIUM CHLORIDE 0.9% INJ 10 ML SYR IV PRN (08:59)
[2020-10-25] MEDS: CARVedilol 12.5 MG TAB PO SCH ×2 (09:00→20:08)
--- NOTE | 2020-10-25 13:53 | IPNPDOC ---
Subjective Date Seen The patient was seen on 10/25/20. Subjective Chief Complaint/HPI Mrs. 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 She was then found to have acute right lentiform nucleus CVA. She was seen earlier this morning. Denies any chest pain or dyspnea. She has had about 3 days of permissive hypertension. Will restart antihypertensives today. Objective Physical Examination General Exam: Positive: Alert, Cooperative Eye Exam: Positive: EOMI; Negative: Sclera icteric Chest Exam: Positive: Diminished Heart Exam: Positive: Rate Normal, Regular Rhythm Abdomen Exam: Positive: Normal bowel sounds, Soft; Negative: Tenderness Extremity Exam: Negative: Edema Skin Exam: Positive: Other skin issue (Large right heel pressure ulcer coverring the whole heel ) Neuro Exam: Positive: Normal Speech, Strength at 5/5 X4 ext (Left arm weaker than right), Other (Left facial droop resolved) Psych Exam: Positive: Mental status NL, Mood NL Assessment /Plan Assessment Mrs. 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 She will be on antibiotics for 6 weeks from 10/05/20. Otherwise, she had an acute right MCA stroke with left arm weakness, left facial droop, and slurred speech on 10/20/20. Discussed case with neurology who recommended serial CT head and aspirin. CT head on 10/21/20 demonstrated acute s troke in the right lentiform nucleus posteriorly measuring 17mm x 8mm x 11mm. This is relatively small and neurology is okay with restarting anticoagulation. Code stroke was called again on 10/22/20. CT head was repeated and demonstrated a slight increase in the stroke area. Spoke with Dr. Austin. Recommended continuing permissive hypertension and she may need more perfusion to brain. It has been about [address] head. Will slowly introduce antihypertensives. Patient see Dr. Rasheed outpatient, but Dr. Lazaro was the one honey producer. He interrogated the pacemaker which was negative for ICD shocks. Troponin plateau Plan/VTE VTE Prophylaxis Ordered?: Yes Plan 1. 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 Bone -Would cultures from the ED growing multiple organisms -ID consulted, recommending 6 weeks of antibiotics -Continues on Zosyn 2. Acute right MCA stroke with left arm weakness -Code stroke called on morning of 10/20/20. Last normal may have been at 1AM or previous night -Unable to obtain MRI due to pacemaker -Discussed case with Dr. Austin, recommending aspirin at this time and repeat CT head -CT head on 10/21/20 demonstrated acute stroke in the right lentiform nucleus posteriorly measuring 17mm x 8mm x 11mm. Relatively small -LDL of 96. HbA1c 6.4. Bubble study negative. US carotids <50% stenosis -Will slowly reintroduce antihypertensives -Continue aspirin and warfarin 3. Dysphagia -ST following -Recommend Level 2 diet, pudding thick liquids 4. NSTEMI -Patient denied chest pain -Troponin plateau 5. Gram-negative bacteremia -Seen in 1 blood culture, grew Morganella -On Zosyn 6. Anemia -Anticoagulation held due to hemoglobin which dropped to 7.2. Hemoglobin stabilized around 8 now -Spoke with Son/HCP about risks and benefits of blood transfusion. He is agreeable to blood transfusion if patient requires blood transfusion 7. DM -Patient on diet -Sliding scale insulin 8. Hypertension -Slowly reintroduce antihypertensives. -Restart Coreg -Holding lisinopril, bumex, and amlodipine 9. Atrial fibrillation -Restart Coreg -Continue Warfarin for INR goal of 2 10. Hyperlipidemia -Continue gemfibrozil and febuxostat 11. GERD -Continue protonix 12. Gout -Continue Uloric 13. CKD stage 3 -Creatinine at baseline 14. DVT ppx -Continue Warfarin. Will discontinue SCD and TEDs Plan: Patient will need placement VS, I&O, 24H, Fishbone Vital Signs/I&O Vital Signs Date Time Temp Pulse Resp B/P (MAP) Pulse Ox O2 Delivery O2 Flow Rate FiO2 10/24/20 22:00 97.0 60 18 177/84 (115) 98 Room Air I&O- Last 24 Hours up to 6 AM 10/25/20 05:59 Intake Total 280 ml Output Total 675 ml Balance -395 ml Laboratory Data 24H LABS Laboratory Tests 2 10/24/20 16:44: Bedside Glucose (Misc Panel) 226H 10/24/20 21:30: Bedside Glucose (Misc Panel) 160H 10/25/20 04:36: Nucleated Red Blood Cells % (auto) 0.3H, Prothrombin Time 42.9H, Prothromb Time International Ratio 4.51, Anion Gap 9, Glomerular Filtration Rate 58.9, Calcium Level 8.6L 10/25/20 12:07: Bedside Glucose (Misc Panel) 222H CBC/BMP Laboratory Tests 10/25/20 04:36 LUCY VILLANUEVA DO Oct 25, 2020 13:53
[2020-10-25 14:00] VITALS: BP 159/76
--- NOTE | 2020-10-25 14:03 | IPN ---
PROGRESS NOTE DATE: 10/25/2020 HISTORY: Patient is a 65-year-old woman with multiple medical problems. She underwent a debridement of her right heel including a portion of the calcaneus for osteomyelitis by Dr. Bone approximately 2 1/2 weeks ago. I was asked to check her wound yesterday. This had a small amount of greenish-yellow exudate but no redness of the surrounding skin and no significant necrotic debris. We replaced a Wound-Vac dressing with black foam yesterday. The patient has been somewhat concerned today as there has not been any fluid draining through the tubing of her Wound-Vac. Vital signs shows that she has been afebrile over the past 24 hours. Her pulse is 60 and her blood pressure is good. Intake and output shows that yesterday she had 280 ccs recorded in with 675 recorded out in urine. PHYSICAL EXAM: Her Wound-Vac dressing I removed with the assistance of the nurse. This was nicely applied and appeared to be working at the time of the dressing change. Examination shows that the wound appears quite clean. There is a minimal bit of exudate in the wound and a few tiny fragments of what appears to be nonviable subcutaneous tissue but I do not believe this requires additional debridement at this time. Laboratory studies today shows a white count of 10, hemoglobin 8, hematocrit 27, and a platelet count of 345,000. Chemistry profile is very similar to yesterday with no significant change. IMPRESSION: Chronic right heel wound with a history of osteomyelitis. PLAN: I have instructed the nurse to replace the Wound-Vac with the black foam and a pressure of 125 mmHg. This can be changed three times weekly as had been the protocol previously. When Dr. Bone is available to reassess the patient's wound, he can reassume her care. DEVENDRA
[2020-10-25 18:26] LABS: HEMATOCRIT 27.6 % (36.0-47.0); HEMOGLOBIN 8.5 g/dl (12.0-15.5); MEAN CORPUSCULAR HEMOGLOBIN 28.2 pg (27.0-33.0); MEAN CORPUSCULAR HGB CONC 30.8 g/dl (32.0-36.5); MEAN CORPUSCULAR VOLUME 91.7 fl (80.0-96.0); PLATELET COUNT, AUTOMATED 331 10^3/uL (150-450); RED BLOOD COUNT 3.01 10^6/uL (4.00-5.40); WHITE BLOOD COUNT 9.4 10^3/uL (4.0-10.0)
[2020-10-25 18:55] LABS: CALCIUM LEVEL 8.6 MG/DL (8.8-10.2); CREATININE FOR GFR 1.1 MG/DL (0.55-1.30); GLOMERULAR FILTRATION RATE 52.7 (>45); POTASSIUM SERUM 4.1 MEQ/L (3.5-5.1); TROPONIN I 0.3 NG/ML (< 0.10)
--- NOTE | 2020-10-25 19:04 | REPVR ---
PROCEDURE INFORMATION: Exam: XR Chest Exam date and time: 10/25/2020 5:55 PM Age: 65 years old Clinical indication: Other: Dyspnea TECHNIQUE: Imaging protocol: XR of the chest. Views: 1 view. COMPARISON: CR PORTABLE CHEST X-RAY 10/22/2020 8:47 PM FINDINGS: Lungs: There is marked prominence of the vascular markings; There is prominence of markings at the left lung base which may be secondary to mild atelectasis or infiltrate. Pleural spaces: Unremarkable. No pleural effusion. No pneumothorax. Heart/Mediastinum: There is prominence left side of the heart. Bones/joints: Unremarkable. IMPRESSION: 1. There is moderate congestive change with moderate pulmonary edema. 2. Mild left basilar atelectasis or infiltrate. Electronically signed by: Elmer Nice On 10/25/2020 19:04:02 PM
[2020-10-25] MEDS ORDERED: FUROSEMIDE 40MG/4ML VIAL (J1940) IV ONE (19:20)
[2020-10-25] MEDS: AMITRIPTYLINE 50 MG TAB PO SCH (20:07)
[2020-10-25 22:00] VITALS: BP 159/76
[2020-10-26] MEDS: PIPERACILLIN/TAZOBACTAM SOD 3.375 GM in D5W MINI-BAG PLUS 50 ML IV SCH ×4 (04:12→21:51)
[2020-10-26] MEDS: SODIUM CHLORIDE 0.9% INJ 10 ML SYR IV SCH ×2 (05:23→17:43)
[2020-10-26 05:54] LABS: HEMATOCRIT 25.5 % (36.0-47.0); HEMOGLOBIN 7.9 g/dl (12.0-15.5); MEAN CORPUSCULAR HEMOGLOBIN 28.5 pg (27.0-33.0); MEAN CORPUSCULAR VOLUME 92.1 fl (80.0-96.0); PLATELET COUNT, AUTOMATED 339 10^3/uL (150-450); RED BLOOD COUNT 2.77 10^6/uL (4.00-5.40); WHITE BLOOD COUNT 7.6 10^3/uL (4.0-10.0)
[2020-10-26 06:00] VITALS: BP 130/68
[2020-10-26 06:15] LABS: ERYTHROCYTE SEDIMENTATION RATE 126 mm/hr (0-30)
[2020-10-26 06:30] LABS: CALCIUM LEVEL 8.3 MG/DL (8.8-10.2); CREATININE FOR GFR 1.05 MG/DL (0.55-1.30); GLOMERULAR FILTRATION RATE 55.7 (>45); POTASSIUM SERUM 3.7 MEQ/L (3.5-5.1)
[2020-10-26] MEDS: ASPIRIN 81MG ENTERIC TABLET PO SCH (08:56)
[2020-10-26] MEDS: HumaLOG INSULIN (NovoLOG) PER UNIT SC SCH ×4 (08:56→20:13)
[2020-10-26] MEDS: FEBUXOSTAT 40 MG TABLET (ULORIC) PO SCH (08:56)
[2020-10-26] MEDS: ASCORBIC ACID 500 MG TAB PO SCH (08:57)
[2020-10-26] MEDS: PANTOPRAZOLE 40MG TAB (PROTONIX) PO SCH (08:57)
[2020-10-26] MEDS: CARVedilol 12.5 MG TAB PO SCH ×2 (08:58→20:13)
[2020-10-26] MEDS: SODIUM CHLORIDE 0.9% INJ 10 ML SYR IV PRN ×2 (08:59)
[2020-10-26 09:32] LABS: INR 4.41; PROTHROMBIN TIME 42.2 SECONDS (12.7-14.5)
--- NOTE | 2020-10-26 10:48 | IPNPDOC ---
Subjective Date Seen The patient was seen on 10/26/20. Subjective Chief Complaint/HPI Mrs. 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 She was then found to have acute right lentiform nucleus CVA. Last night, she has dyspnea, but did not require oxygen. BNP was elevated and CXR was suggestive of CHF. Gave patient IV lasix last night. restarting Bumex today. Otherwise, this morning, patient denies chest pain or dyspnea. Requested podiatry, Dr. Garcia, to re-evaluate wound as there was questions about needing debridement. Objective Physical Examination General Exam: Positive: Alert, Cooperative Eye Exam: Positive: EOMI; Negative: Sclera icteric Chest Exam: Positive: Diminished Heart Exam: Positive: Rate Normal, Regular Rhythm Abdomen Exam: Positive: Normal bowel sounds, Soft; Negative: Tenderness Extremity Exam: Negative: Edema Skin Exam: Positive: Other skin issue (Large right heel pressure ulcer coverring the whole heel ) Neuro Exam: Positive: Normal Speech, Strength at 5/5 X4 ext (Left arm weaker than right), Other (Left facial droop resolved) Psych Exam: Positive: Mental status NL, Mood NL Assessment /Plan Assessment Mrs. 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 She will be on antibiotics for 6 weeks from 10/05/20. Otherwise, she had an acute right MCA stroke with left arm weakness, left facial droop, and slurred speech on 10/20/20. Discussed case with neurology who recommended serial CT head and aspirin. CT head on 10/21/20 demonstrated acute stroke in the right lentiform nucleus posteriorly measuring 17mm x 8mm x 11mm. This is relatively small and neurology is okay with restarting anticoagulation. Code stroke was called again on 10/22/20. CT head was repeated and demonstrated a slight increase in the stroke area. Spoke with Dr. Austin. Recommended continuing permissive hypertension and she may need more perfusion to brain. It has been about [address] head. Will slowly introduce antihypertensives as tolerated. Patient see Dr. Rasheed outpatient, but Dr. Lazaro was the one mental hygiene consultant. He interrogated the pacemaker which was negative for ICD shocks. Troponin plateau. Plan/VTE VTE Prophylaxis Ordered?: Yes Plan 1. 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 Bone -Would cultures from the ED growing multiple organisms -ID consulted, recommending 6 weeks of antibiotics -Continues on Zosyn 2. Acute right MCA stroke with left arm weakness -Code stroke called on morning of 10/20/20. Last normal may have been at 1AM or previous night -Unable to obtain MRI due to pacemaker -Discussed case with Dr. Austin, recommending aspirin at this time and repeat CT head -CT head on 10/21/20 demonstrated acute stroke in the right lentiform nucleus posteriorly measuring 17mm x 8mm x 11mm. Relatively small -LDL of 96. HbA1c 6.4. Bubble study negative. US carotids <50% stenosis -Will slowly reintroduce antihypertensives -Continue aspirin and warfarin 3. Dysphagia -ST following -Recommend Level 2 diet, pudding thick liquids 4. NSTEMI -Patient denied chest pain -Troponin plateau 5. Gram-negative bacteremia -Seen in 1 blood culture, grew Morganella -On Zosyn 6. Anemia -Anticoagulation held due to hemoglobin which dropped to 7.2. Hemoglobin stabilized around 8 now -Spoke with Son/HCP about risks and benefits of blood transfusion. He is agreeable to blood transfusion if patient requires blood transfusion 7. DM -Patient on diet -Sliding scale insulin 8. Hypertension -Slowly reintroduce antihypertensives. -Continue Coreg -Restart Bumex -Holding lisinopril and amlodipine 9. Atrial fibrillation -Continue Coreg -Continue Warfarin for INR goal of 2 10. Hyperlipidemia -Continue gemfibrozil and febuxostat 11. GERD -Continue protonix 12. Gout -Continue Uloric 13. CKD stage 3 -Creatinine at baseline 14. DVT ppx -Continue Warfarin. Held today as supratherupeutic Will discontinue SCD and TEDs Plan: Requested Dr. Garcia re-evaluate wound as there was question of needing debridement. Restarting diuretics VS, I&O, 24H, Fishbone Vital Signs/I&O Vital Signs Date Time Temp Pulse Resp B/P (MAP) Pulse Ox O2 Delivery O2 Flow Rate FiO2 10/26/20 08:58 61 131/68 10/26/20 06:00 97.6 18 98 Room Air I&O- Last 24 Hours up to 6 AM 10/26/20 05:59 Intake Total 1340 ml Output Total 900 ml Balance 440 ml Laboratory Data 24H LABS Laboratory Tests 2 10/25/20 12:07: Bedside Glucose (Misc Panel) 222H 10/25/20 16:54: Bedside Glucose (Misc Panel) 158H 10/25/20 18:16: Nucleated Red Blood Cells % (auto) 0.4H 10/25/20 18:17: Anion Gap 8, Glomerular Filtration Rate 52.7, Calcium Level 8.6L, Magnesium Level 2.0, Troponin I 0.30H, TO-Mrl-G-Type Natriuretic Peptide [id number] 10/25/20 20:04: Bedside Glucose (Misc Panel) 185H 10/26/20 05:29: Nucleated Red Blood Cells % (auto) 0.5H, Erythrocyte Sedimentation Rate 126H, Anion Gap 8, Glomerular Filtration Rate 55.7, Calcium Level 8.3L, C-Reactive Protein, Quantitative 7.00H 10/26/20 08:55: Prothrombin Time 42.2H, Prothromb Time International Ratio 4.41 CBC/BMP Laboratory Tests 10/25/20 18:16 10/25/20 18:17 10/26/20 05:29 LUCY VILLANUEVA DO Oct 26, 2020 10:48
[2020-10-26] MEDS: BUMETANIDE 1 MG TAB PO SCH (13:43)
--- NOTE | 2020-10-26 13:55 | CR ---
CONSULTATION DATE: 10/26/2020 REASON FOR CONSULTATION: Right foot ulcer. HISTORY OF PRESENT ILLNESS: Analisa Rome is a patient who was admitted due to right foot infection. She has been under treatment with antibiotics and had bone resection by Dr. Bone approximately three weeks ago. She has been under treatment with wound VAC therapy. She had an angiogram by Dr. aMya with some improvement. I was asked to evaluate the wound as Dr. Bone is presently unavailable and there were some concerns about the wound appearance. PAST MEDICAL HISTORY: Significant for diabetes with neuropathy and retinopathy, hypertension, hyperlipidemia, coronary artery disease, atrial fibrillation with defibrillator, vertigo, GERD, congestive heart failure, gout, peripheral vascular disease. PAST SURGICAL HISTORY: Includes hysterectomy, cholecystectomy, AICD placement, cystoscopy. FAMILY HISTORY: Cancer on father's side. SOCIAL HISTORY: Former smoker, denies alcohol or tobacco use. ALLERGIES: NO KNOWN DRUG ALLERGIES. PHYSICAL EXAMINATION: VITAL SIGNS: T-max in last 24 hours is 97.7. LOWER EXTREMITIES: There is no erythema surrounding the wound. Wound base is free of purulent tissue. The bone has some granulation tissue over it. There is some necrotic fat along the periphery of the wound. LABS: White blood cell count 7.6, CRP 7. ASSESSMENT: This is a 65-year-old diabetic female status post calcaneal bone debridement by Dr. Bone. PLAN: At this time I agree with wound VAC, subcutaneous wound debridement was performed at bedside. Excision of fascia with dermal curet including subcutaneous tissue and fat. The patient should have follow up with Dr. Bone.
[2020-10-26 14:00] VITALS: BP 135/68
[2020-10-26 19:29] LABS: HEMATOCRIT 27.5 % (36.0-47.0); HEMOGLOBIN 8.5 g/dl (12.0-15.5); MEAN CORPUSCULAR HEMOGLOBIN 28.1 pg (27.0-33.0); MEAN CORPUSCULAR HGB CONC 30.9 g/dl (32.0-36.5); MEAN CORPUSCULAR VOLUME 90.8 fl (80.0-96.0); PLATELET COUNT, AUTOMATED 338 10^3/uL (150-450); RED BLOOD COUNT 3.03 10^6/uL (4.00-5.40); WHITE BLOOD COUNT 7.9 10^3/uL (4.0-10.0)
[2020-10-26] MEDS: AMITRIPTYLINE 50 MG TAB PO SCH (20:12)
[2020-10-26 22:00] VITALS: BP 143/68
[2020-10-27] MEDS: PIPERACILLIN/TAZOBACTAM SOD 3.375 GM in D5W MINI-BAG PLUS 50 ML IV SCH ×4 (03:12→22:15)
[2020-10-27] MEDS: SODIUM CHLORIDE 0.9% INJ 10 ML SYR IV SCH ×2 (05:02→17:19)
[2020-10-27 05:15] LABS: HEMATOCRIT 26.4 % (36.0-47.0); HEMOGLOBIN 8.1 g/dl (12.0-15.5); MEAN CORPUSCULAR HEMOGLOBIN 27.7 pg (27.0-33.0); MEAN CORPUSCULAR HGB CONC 30.7 g/dl (32.0-36.5); MEAN CORPUSCULAR VOLUME 90.4 fl (80.0-96.0); PLATELET COUNT, AUTOMATED 333 10^3/uL (150-450); RED BLOOD COUNT 2.92 10^6/uL (4.00-5.40); WHITE BLOOD COUNT 8.4 10^3/uL (4.0-10.0)
[2020-10-27 05:27] LABS: INR 3.55; PROTHROMBIN TIME 35.8 SECONDS (12.7-14.5)
[2020-10-27 05:55] LABS: CREATININE FOR GFR 1.05 MG/DL (0.55-1.30); GLOMERULAR FILTRATION RATE 55.7 (>45); POTASSIUM SERUM 3.6 MEQ/L (3.5-5.1)
[2020-10-27 06:00] VITALS: BP 143/68
[2020-10-27] MEDS: HumaLOG INSULIN (NovoLOG) PER UNIT SC SCH ×4 (08:58→22:14)
[2020-10-27] MEDS: FEBUXOSTAT 40 MG TABLET (ULORIC) PO SCH (08:58)
[2020-10-27] MEDS: PANTOPRAZOLE 40MG TAB (PROTONIX) PO SCH (08:58)
[2020-10-27] MEDS: BUMETANIDE 1 MG TAB PO SCH (08:58)
[2020-10-27] MEDS: ASCORBIC ACID 500 MG TAB PO SCH (08:58)
[2020-10-27] MEDS: MAGNESIUM OXIDE 400MG TAB (MAG-OX) PO SCH (08:59)
[2020-10-27] MEDS: ASPIRIN 81MG ENTERIC TABLET PO SCH (08:59)
[2020-10-27] MEDS: CARVedilol 12.5 MG TAB PO SCH ×2 (09:00→22:14)
--- NOTE | 2020-10-27 10:18 | IPNPDOC ---
Subjective Date Seen The patient was seen on 10/27/20. Subjective Chief Complaint/HPI Mrs. 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 Yesterday, Dr. Garcia debrided the foot and wound vac was placed back on. This morning, patient denies any chest pain or dyspnea. She reported some cramping overnight, but resolved this morning. Will check a magnesium level. Objective Physical Examination General Exam: Positive: Alert, Cooperative Eye Exam: Positive: EOMI; Negative: Sclera icteric Chest Exam: Positive: Diminished Heart Exam: Positive: Rate Normal, Regular Rhythm Abdomen Exam: Positive: Normal bowel sounds, Soft; Negative: Tenderness Extremity Exam: Negative: Edema Skin Exam: Positive: Other skin issue (Large right heel pressure ulcer coverring the whole heel ) Neuro Exam: Positive: Normal Speech, Strength at 5/5 X4 ext (Left arm weaker than right), Other (Left facial droop resolved) Psych Exam: Positive: Mental status NL, Mood NL Assessment /Plan Assessment Mrs. 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 She will be on antibiotics for 6 weeks from 10/05/20. End date would be 11/16/20 Otherwise, she had an acute right MCA stroke with left arm weakness, left facial droop, and slurred speech on 10/20/20. Discussed case with neurology who recommended serial CT head and aspirin. CT head on 10/21/20 demonstrated acute stroke in the right lentiform nucleus posteriorly measuring 17mm x 8mm x 11mm. This is relatively small and neurology is okay with restarting anticoagulation. Code stroke was called again on 10/22/20. CT head was repeated and demonstrated a slight increase in the stroke area. Spoke with Dr. Austin. Recommended continuing permissive hypertension and she may need more perfusion to brain. It has been about [address] head. Will slowly introduce antihypertensives as tolerated. Patient see Dr. Rasheed outpatient, but Dr. Lazaro was the one sap plant maintenance consultant. He interrogated the pacemaker which was negative for ICD shocks. Troponin plateau. Plan/VTE VTE Prophylaxis Ordered?: Yes Plan 1. 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 Bone -Would cultures from the ED growing multiple organisms -ID consulted, recommending 6 weeks of antibiotics. End date would be 11/16/20 -Continues on Zosyn 2. Acute right MCA stroke with left arm weakness -Code stroke called on morning of 10/20/20. Last normal may have been at 1AM or previous night -Unable to obtain MRI due to pacemaker -Discussed case with Dr. Austin, recommending aspirin at this time and repeat CT head -CT head on 10/21/20 demonstrated acute stroke in the right lentiform nucleus posteriorly measuring 17mm x 8mm x 11mm. Relatively small -LDL of 96. HbA1c 6.4. Bubble study negative. US carotids <50% stenosis -Will slowly reintroduce antihypertensives -Continue aspirin and warfarin 3. Dysphagia -ST following -Recommend Level 2 diet, pudding thick liquids 4. NSTEMI -Patient denied chest pain -Troponin plateau 5. Gram-negative bacteremia -Seen in 1 blood culture, grew Morganella -On Zosyn 6. Anemia -Anticoagulation held due to hemoglobin which dropped to 7.2. Hemoglobin stabilized around 8 now -Spoke with Son/HCP about risks and benefits of blood transfusion. He is agreeable to blood transfusion if patient requires blood transfusion 7. DM -Patient on diet -Sliding scale insulin 8. Hypertension -Slowly reintroduce antihypertensives. -Continue Coreg, Bumex -Restart lisinopril -Holding amlodipine 9. Atrial fibrillation -Continue Coreg -Continue Warfarin for INR goal of 2 10. Hyperlipidemia -Continue gemfibrozil and febuxostat 11. GERD -Continue protonix 12. Gout -Continue Uloric 13. CKD stage 3 -Creatinine at baseline 14. DVT ppx -Continue Warfarin. Held today as supratherupeutic. Plan: Pending placement VS, I&O, 24H, Fishbone Vital Signs/I&O Vital Signs Date Time Temp Pulse Resp B/P (MAP) Pulse Ox O2 Delivery O2 Flow Rate FiO2 10/27/20 09:00 60 140/74 10/27/20 06:00 98.4 18 100 Room Air I&O- Last 24 Hours up to 6 AM 10/27/20 05:59 Intake Total 1070 ml Output Total 1775 ml Balance -705 ml Laboratory Data 24H LABS Laboratory Tests 2 10/26/20 11:46: Bedside Glucose (Misc Panel) 227H 10/26/20 17:05: Bedside Glucose (Misc Panel) 190H 10/26/20 19:07: Nucleated Red Blood Cells % (auto) 0.6H 10/26/20 20:11: Bedside Glucose (Misc Panel) 216H 10/27/20 05:04: Nucleated Red Blood Cells % (auto) 0.4H, Prothrombin Time 35.8H, Prothromb Time International Ratio 3.55, Anion Gap 7L, Glomerular Filtration Rate 55.7, Calcium Level 8.0L CBC/BMP Laboratory Tests 10/26/20 19:07 10/27/20 05:04 LUCY VILLANUEVA DO Oct 27, 2020 10:18
[2020-10-27] MEDS ORDERED: POTASSIUM CHLORIDE 10MEQ SR TABLET PO ONE (10:20)
--- NOTE | 2020-10-27 12:44 | IPN ---
PROGRESS NOTE DATE: 10/26/2020 Analisa is in good spirits today. I have not seen the patient in the past 2 weeks, as I had been on vacation. Since then, patient had a stroke and complained of lack of coordination. She is not able to use her iPad anymore. She has some left upper extremity weakness. She has had some problems with the wound vacuum-assisted closure (VAC) on the right leg over the weekend. On Monday she had a wet-to-dry dressing placed, and then there was some maceration of the tissue. She was seen in consultation by Dr. Garcia and Dr. Rubio. Dr. Garcia did some debridement at the bedside. She has had no fever or chills. No nausea, vomiting, or diarrhea. LABORATORY DATA: White count is 7.6, hemoglobin 7.9, hematocrit 25.5, platelets 339. ESR 126. Sodium 137, potassium 3.7, chloride 108, bicarbonate 21, BUN 20, creatinine 1.05, glucose 185, calcium 8.3, magnesium 2. Troponins 0.44 and 0.3. BNP 23,308. CRP 7, down from 9.22. Wound culture was final for Morganella morganii, Escherichia (E) coli, Enterococcus (E) faecalis, and blood culture was positive for Morganella morganii. MEDICATIONS: Intravenous (IV) Zosyn 3.375 grams every 6 hours, currently day #18. PHYSICAL EXAMINATION: HEART: Normal S1, S2. Systolic ejection murmur 2/6. LUNGS: Crackles at both bases, left more than right. ABDOMEN: Obese, soft, nontender. EXTREMITIES: No clubbing, cyanosis, or edema. Right heel wound VAC in place. The dressing was not changed, as it was changed this morning by Chey, her nurse, and Dr. Garcia. He did debridement of the wound. The wound measures about 10 cm per nursing, and there is 3 cm of exposed bone. NEUROLOGIC: Left facial droop and left upper extremity weakness. IMPRESSION: 1. Acute osteomyelitis of the right calcaneus with polymicrobial adolph and Morganella bacteria. The patient on IV Zosyn. She is status post resection of the right calcaneus, done by Dr. Bone on October 07, and will be treated with a total of 6 weeks of IV Zosyn. Patient continues with wound VAC. 2. Acute right middle cerebral artery (MCA) stroke with left arm weakness on October 20. Patient complains of weakness on the left side, difficulty getting out of bed, and poor coordination., PLAN: Continue with IV Zosyn. Monitor complete blood count (CBC), erythrocyte sedimentation rate (ESR), C-reactive protein (CRP) twice a week. Will discuss the case with Dr. Bone on Monday when he comes back. I have not seen the wound today but will try to get to see it with her dressing change.
[2020-10-27 14:00] VITALS: BP 143/69
--- NOTE | 2020-10-27 15:16 | CR ---
CONSULTATION DATE: 10/21/2020 REASON FOR CONSULTATION: Acute left-sided hemiparesis. 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 The patient was being treated for that and suddenly developed weakness of her left upper extremity and lower extremity while in [facility]. The patient was noted to have evidence of acute stroke on head CT which had to be repeated a couple of times to demonstrate the lesion in the right lenticular nucleus which was ischemic in origin, measuring approximately 17 mm x 8 mm x 11 mm. The patient was on anticoagulation with Warfarin but that was stopped. The patient is currently on Aspirin and will have Coumadin resumed. She continues to have significant weakness of the left upper and lower extremities. She will benefit from complete stroke workup including managing blood pressure 140-180. She denies any headaches, diplopia, dysarthria at the present time. She states the dysarthria is coming and going. She does have significant left-sided weakness in the arm and leg. PAST MEDICAL HISTORY: Hypertension, hyperlipidemia, diabetes, CAD, atrial fibrillation, was on anticoagulation, history of right-sided heel osteomyelitis, GERD, CHF, gout, peripheral vascular disease. PAST SURGICAL HISTORY: Hysterectomy, cholecystectomy, ICD placement, cystoscopy. FAMILY HISTORY: Noncontributory. SOCIAL HISTORY: The patient denies use of tobacco, alcohol or illicit drugs, former smoker. ALLERGIES: NO KNOWN DRUG ALLERGIES. HOME MEDICATIONS: 1. Amitriptyline. 2. Amlodipine. 3. Ascorbic Acid. 4. Bumetanide. 5. Carvedilol. 6. Digoxin. 7. Gemfibrozil. 8. Febuxostat. 9. Insulin. 10. Lisinopril. 11. Magnesium oxide. 12. Metformin. 13. Coumadin. PHYSICAL EXAMINATION: VITAL SIGNS: Blood pressure 148/73, pulse rate 57, respiratory rate 18, temperature 97.7 degrees Fahrenheit, oxygenation 98% on room air. GENERAL: The patient is oriented to person, place and time. Speech, language, comprehension, repetition are intact with mild dysarthria. HEENT: Extraocular movements are intact. There is no facial weakness other than subtle flattening of the left nasolabial fold. Hearing is equal to finger rub. NEURO: There is no significant pronator drift of the right upper extremity. Left upper extremity has mild pronator drift. The patient has 4+ weakness of the right upper extremity, has 4/5 weakness in right lower extremity. Sensory is reduced to light touch distally in the legs and sensory gradient due to diabetes. Deep tendon reflexes are reduced throughout. Babinski signs are mute. Coordination without any gross ataxia or dysmetria. Gait deferred. ASSESSMENT: Acute right MCA stroke with left arm weakness greater than left leg weakness with dysarthria. PLAN: 1. Resume Coumadin while maintaining Aspirin 81 mg therapy. 2. Continue systolic blood pressure 140-180 for the next 48 hours. 3. Continue workup including carotid ultrasound, echocardiogram. 4. Recommend PT/OT evaluation. 5. Continue management of osteomyelitis as per primary care team. 6. Optimize diabetes, hypertension, hyperlipidemia.
[2020-10-27 22:00] VITALS: BP 144/71
[2020-10-27] MEDS: AMITRIPTYLINE 50 MG TAB PO SCH (22:14)
[2020-10-28] MEDS: PIPERACILLIN/TAZOBACTAM SOD 3.375 GM in D5W MINI-BAG PLUS 50 ML IV SCH ×4 (04:07→21:54)
[2020-10-28] MEDS: SODIUM CHLORIDE 0.9% INJ 10 ML SYR IV SCH ×2 (05:19→18:11)
[2020-10-28 05:57] LABS: HEMATOCRIT 26.2 % (36.0-47.0); MEAN CORPUSCULAR HEMOGLOBIN 27.8 pg (27.0-33.0); MEAN CORPUSCULAR HGB CONC 30.5 g/dl (32.0-36.5); PLATELET COUNT, AUTOMATED 334 10^3/uL (150-450); RED BLOOD COUNT 2.88 10^6/uL (4.00-5.40); WHITE BLOOD COUNT 7.6 10^3/uL (4.0-10.0)
[2020-10-28 06:00] VITALS: BP 144/71
[2020-10-28 06:07] LABS: INR 2.59; PROTHROMBIN TIME 28.1 SECONDS (12.7-14.5)
[2020-10-28 06:20] LABS: CALCIUM LEVEL 8.7 MG/DL (8.8-10.2); GLOMERULAR FILTRATION RATE 58.9 (>45); POTASSIUM SERUM 3.8 MEQ/L (3.5-5.1)
[2020-10-28] MEDS: ASPIRIN 81MG ENTERIC TABLET PO SCH (09:49)
[2020-10-28] MEDS: ASCORBIC ACID 500 MG TAB PO SCH (09:49)
[2020-10-28] MEDS: PANTOPRAZOLE 40MG TAB (PROTONIX) PO SCH (09:49)
[2020-10-28] MEDS: BUMETANIDE 1 MG TAB PO SCH (09:49)
[2020-10-28] MEDS: FEBUXOSTAT 40 MG TABLET (ULORIC) PO SCH (09:49)
[2020-10-28] MEDS: CARVedilol 12.5 MG TAB PO SCH ×2 (09:50→21:55)
[2020-10-28] MEDS: HumaLOG INSULIN (NovoLOG) PER UNIT SC SCH ×4 (09:52→21:00)
--- NOTE | 2020-10-28 10:45 | IPNPDOC ---
Subjective Date Seen The patient was seen on 10/28/20. Subjective Chief Complaint/HPI Mrs. 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 This morning, patient was complaining of right heal pain. I reached out to Dr. Bone who will see the patient. Otherwise, denies any chest or dyspnea. Objective Physical Examination General Exam: Positive: Alert, Cooperative Eye Exam: Positive: EOMI; Negative: Sclera icteric Chest Exam: Positive: Diminished Heart Exam: Positive: Rate Normal, Regular Rhythm Abdomen Exam: Positive: Normal bowel sounds, Soft; Negative: Tenderness Extremity Exam: Negative: Edema Neuro Exam: Positive: Normal Speech, Strength at 5/5 X4 ext (Left arm weaker than right), Other (Left facial droop resolved) Psych Exam: Positive: Mental status NL, Mood NL Assessment /Plan Assessment Mrs. 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 She will be on antibiotics for 6 weeks from 10/05/20. End date would be 11/16/20 Otherwise, she had an acute right MCA stroke with left arm weakness, left facial droop, and slurred speech on 10/20/20. Discussed case with neurology who recommended serial CT head and aspirin. CT head on 10/21/20 demonstrated acute stroke in the right lentiform nucleus posteriorly measuring 17mm x 8mm x 11mm. This is relatively small and neurology is okay with restarting anticoagulation. Code stroke was called again on 10/22/20. CT head was repeated and demonstrated a slight increase in the stroke area. Spoke with Dr. Austin. Recommended continuing permissive hypertension and she may need more perfusion to brain. It has been about [address] head. Will slowly introduce antihyp ertensives as tolerated. Patient see Dr. Rasheed outpatient, but Dr. Lazaro was the one in school suspension coordinator. He in terrogated the pacemaker which was negative for ICD shocks. Troponin plateau. Plan/VTE VTE Prophylaxis Ordered?: Yes Plan 1. 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 Bone -Would cultures from the ED growing multiple organisms -ID consulted, recommending 6 weeks of antibiotics. End date would be 11/16/20 -Continues on Zosyn 2. Acute right MCA stroke with left arm weakness -Code stroke called on morning of 10/20/20. Last normal may have been at 1AM or previous night -Unable to obtain MRI due to pacemaker -Discussed case with Dr. Austin, recommending aspirin at this time and repeat CT head -CT head on 10/21/20 demonstrated acute stroke in the right lentiform nucleus posteriorly measuring 17mm x 8mm x 11mm. Relatively small -LDL of 96. HbA1c 6.4. Bubble study negative. US carotids <50% stenosis -Will slowly reintroduce antihypertensives -Continue aspirin and warfarin 3. Dysphagia -ST following -Recommend Level 2 diet, pudding thick liquids 4. NSTEMI -Patient denied chest pain -Troponin plateau 5. Gram-negative bacteremia -Seen in 1 blood culture, grew Morganella -On Zosyn 6. Anemia -Anticoagulation held due to hemoglobin which dropped to 7.2. Hemoglobin stabilized around 8 now -Spoke with Son/HCP about risks and benefits of blood transfusion. He is agreeable to blood transfusion if patient requires blood transfusion 7. DM -Patient on diet -Sliding scale insulin 8. Hypertension -Slowly reintroduce antihypertensives. -Continue Coreg, Bumex, lisinopril -Restart amlodipine 9. Atrial fibrillation -Continue Coreg -Continue Warfarin for INR goal of 2 10. Hyperlipidemia -Continue gemfibrozil and febuxostat 11. GERD -Continue protonix 12. Gout -Continue Uloric 13. CKD stage 3 -Creatinine at baseline 14. DVT ppx -Continue Warfarin. Reduced today's Warfarin dose from 3mg to 1.5mg since 3mg made patient supratherupeutic Plan: Pending placement. Dr. Bone to re-evaluate right heel. VS, I&O, 24H, Fishbone Vital Signs/I&O Vital Signs Date Time Temp Pulse Resp B/P (MAP) Pulse Ox O2 Delivery O2 Flow Rate FiO2 10/28/20 09:50 61 10/28/20 09:49 145/71 10/28/20 06:00 97.3 14 98 Room Air I&O- Last 24 Hours up to 6 AM 10/28/20 05:59 Intake Total 640 ml Output Total 1000 ml Balance -360 ml Laboratory Data 24H LABS Laboratory Tests 2 10/27/20 11:40: Bedside Glucose (Misc Panel) 190H 10/27/20 16:55: Bedside Glucose (Misc Panel) 241H 10/27/20 22:03: Bedside Glucose (Misc Panel) 208H 10/28/20 05:42: Nucleated Red Blood Cells % (auto) 0.3H, Prothrombin Time 28.1H, Prothromb Time International Ratio 2.59, Anion Gap 7L, Glomerular Filtration Rate 58.9, Calcium Level 8.7L CBC/BMP Laboratory Tests 10/28/20 05:42 LUCY VILLANUEVA DO Oct 28, 2020 10:45
[2020-10-28] MEDS ORDERED: PILL CUTTER 1 EACH XX PRN (10:50)
[2020-10-28] MEDS: SODIUM CHLORIDE 0.9% INJ 10 ML SYR IV PRN (11:38)
[2020-10-28 14:00] VITALS: BP 153/74
[2020-10-28] MEDS ORDERED: WARFARIN SOD 3MG TAB PO ONE (17:00)
[2020-10-28] MEDS: AMITRIPTYLINE 50 MG TAB PO SCH (21:54)
[2020-10-28 22:00] VITALS: BP 139/67
[2020-10-29] MEDS: PIPERACILLIN/TAZOBACTAM SOD 3.375 GM in D5W MINI-BAG PLUS 50 ML IV SCH ×4 (04:09→22:17)
[2020-10-29] MEDS: SODIUM CHLORIDE 0.9% INJ 10 ML SYR IV SCH ×2 (04:09→16:28)
[2020-10-29 05:46] LABS: HEMATOCRIT 27.7 % (36.0-47.0); HEMOGLOBIN 8.6 g/dl (12.0-15.5); MEAN CORPUSCULAR HEMOGLOBIN 27.9 pg (27.0-33.0); MEAN CORPUSCULAR VOLUME 89.9 fl (80.0-96.0); PLATELET COUNT, AUTOMATED 333 10^3/uL (150-450); RED BLOOD COUNT 3.08 10^6/uL (4.00-5.40); WHITE BLOOD COUNT 7.6 10^3/uL (4.0-10.0)
[2020-10-29 06:00] VITALS: BP 151/76
[2020-10-29 06:00] LABS: INR 2.24; PROTHROMBIN TIME 25.2 SECONDS (12.7-14.5)
[2020-10-29 06:06] LABS: CALCIUM LEVEL 8.6 MG/DL (8.8-10.2); GLOMERULAR FILTRATION RATE 58.9 (>45); POTASSIUM SERUM 3.4 MEQ/L (3.5-5.1)
[2020-10-29] MEDS: HumaLOG INSULIN (NovoLOG) PER UNIT SC SCH ×4 (08:55→21:00)
[2020-10-29] MEDS: SENOKOT S TAB PO SCH ×2 (08:56→20:30)
[2020-10-29] MEDS: FEBUXOSTAT 40 MG TABLET (ULORIC) PO SCH (08:56)
[2020-10-29] MEDS: ASCORBIC ACID 500 MG TAB PO SCH (08:56)
[2020-10-29] MEDS: BUMETANIDE 1 MG TAB PO SCH (08:56)
[2020-10-29] MEDS: MAGNESIUM OXIDE 400MG TAB (MAG-OX) PO SCH (08:56)
[2020-10-29] MEDS: ASPIRIN 81MG ENTERIC TABLET PO SCH (08:56)
[2020-10-29] MEDS: PANTOPRAZOLE 40MG TAB (PROTONIX) PO SCH (08:57)
[2020-10-29] MEDS: CARVedilol 12.5 MG TAB PO SCH ×2 (08:57→20:30)
--- NOTE | 2020-10-29 12:11 | IPN ---
PROGRESS NOTE DATE: 10/28/2020 CHIEF COMPLAINT: Patient seen at bedside for evaluation of right knee pain. The patient states her foot feels fine. She is having no present discomfort. The patient is in bed with an offloading boot on her right and left extremities. A wound VAC is functioning satisfactorily on the right heel. Laboratory studies reveal an anion gap of 4. The C reactive protein is 3.07. White count is 7.6. There is no calf tenderness. Tenderness is noted to the knee most likely secondary to positioning. The wound was evaluated when the wound VAC was removed, revealing a wound 5.6 cm x 4.1 cm x approximately 0.5 cm in depth down to the calcaneus. Granulation tissue base is noted throughout the wound bed. Some sporadic yellow granulation tissue was noted along the margins. There is no fluctuance. ASSESSMENT: Healing stage IV ulceration, right heel. PLAN: For the knee pain, recommend positioning pillows under the heel to reduce the weight on the knee. Continue utilizing offloading boot on the heel to decrease weight on the posterior heel. Continue presently with her wound VAC therapy. Dr. Arias is covering her antibiotic coverage. Patient's questions were answered.
--- NOTE | 2020-10-29 12:26 | IPNPDOC ---
Subjective Date Seen The patient was seen on 10/29/20. Subjective Chief Complaint/HPI Mrs. 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 This morning, she denies chest pain or dyspnea. All of her antihypertensives have been restarted. Patient INR is at goal and Dr. Bone evaluated the right heel ulcer yesterday. Patient is ready for rehab. Objective Physical Examination General Exam: Positive: Alert, Cooperative Eye Exam: Positive: EOMI; Negative: Sclera icteric Chest Exam: Positive: Diminished Heart Exam: Positive: Rate Normal, Regular Rhythm Abdomen Exam: Positive: Normal bowel sounds, Soft; Negative: Tenderness Extremity Exam: Negative: Edema Neuro Exam: Positive: Normal Speech, Strength at 5/5 X4 ext (Left arm weaker than right), Other (Left facial droop resolved) Psych Exam: Positive: Mental status NL, Mood NL Assessment /Plan Assessment Mrs. Rome is a 65 year old female with DM complicated by neuropathy and ret inopathy, HTN, HLD, CAD, and atrial fibrillation who initially was here for right heel osteomyelitis. She will be on antibiotics for 6 weeks from 10/05/20. End date would be 11/16/20 Otherwise, she had an acute right MCA stroke with left arm weakness, left facial droop, and slurred speech on 10/20/20. Discussed case with neurology who recommended serial CT head and aspirin. CT head on 10/21/20 demonstrated acute stroke in the right lentiform nucleus posteriorly measuring 17mm x 8mm x 11mm. This is relatively small and neurology is okay with restarting anticoagulation. Code stroke was called again on 10/22/20. CT head was repeated and demonstrated a slight increase in the stroke area. Spoke with Dr. Austin. Recommended continuing permissive hypertension and she may need more perfusion to brain. It has been about [address] head. All of her antihypertensives have been restarted. Patient see Dr. Rasheed outpatient, but Dr. Lazaro was the one television tube inspector. He interrogated the pacemaker which was negative for ICD shocks. Troponin plateau. Plan/VTE VTE Prophylaxis Ordered?: Yes Plan 1. 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 Bone -Would cultures from the ED growing multiple organisms -ID consulted, recommending 6 weeks of antibiotics. End date would be 11/16/20 -Continues on Zosyn 2. Acute right MCA stroke with left arm weakness -Code stroke called on morning of 10/20/20. Last normal may have been at 1AM or previous night -Unable to obtain MRI due to pacemaker -Discussed case with Dr. Austin, recommending aspirin at this time and repeat CT head -CT head on 10/21/20 demonstrated acute stroke in the right lentiform nucleus p osteriorly measuring 17mm x 8mm x 11mm. Relatively small -LDL of 96. HbA1c 6.4. Bubble study negative. US carotids <50% stenosis -Continue aspirin and warfarin -Patient will need rehab 3. Dysphagia -ST following -Recommend Level 2 diet, pudding thick liquids 4. NSTEMI -Patient denied chest pain -Troponin plateau 5. Gram-negative bacteremia -Seen in 1 blood culture, grew Morganella -On Zosyn 6. Anemia -Anticoagulation held due to hemoglobin which dropped to 7.2. -Hemoglobin stabilized around 8 now 7. DM -Patient on diet -Sliding scale insulin 8. Hypertension -Slowly reintroduce antihypertensives. Now all antihypertensives have been restarted -Continue Coreg, Bumex, lisinopril, amlodipine 9. Atrial fibrillation -Continue Coreg -Continue Warfarin for INR goal of 2 10. Hyperlipidemia -Continue gemfibrozil and febuxostat 11. GERD -Continue protonix 12. Gout -Continue Uloric 13. CKD stage 3 -Creatinine at baseline 14. DVT ppx -Continue Warfarin. Plan: Pending placement VS, I&O, 24H, [facility] Vital Signs/I&O Vital Signs Date Time Temp Pulse Resp B/P (MAP) Pulse Ox O2 Delivery O2 Flow Rate FiO2 10/29/20 08:57 62 140/70 10/29/20 06:00 96.2 18 99 Room Air I&O- Last 24 Hours up to 6 AM 10/29/20 06:00 Intake Total 580 ml Output Total 2000 ml Balance -1420 ml Laboratory Data 24H LABS Laboratory Tests 2 10/28/20 16:25: Bedside Glucose (Misc Panel) 220H 10/28/20 20:19: Bedside Glucose (Misc Panel) 217H 10/29/20 05:25: Nucleated Red Blood Cells % (auto) 0.0, Erythrocyte Sedimentation Rate 125H, Prothrombin Time 25.2H, Prothromb Time International Ratio 2.24, Anion Gap 4L, Glomerular Filtration Rate 58.9, Calcium Level 8.6L, Magnesium Level 1.9, C- Reactive Protein, Quantitative 3.07H 10/29/20 11:46: Bedside Glucose (Misc Panel) 171H CBC/BMP Laboratory Tests 10/29/20 05:25 LUCY VILLANUEVA DO Oct 29, 2020 12:26
[2020-10-29 12:37] LABS: MAGNESIUM LEVEL 1.8 MG/DL (1.8-2.4)
[2020-10-29 14:00] VITALS: BP 145/71
[2020-10-29] MEDS ORDERED: WARFARIN SOD 2MG TAB PO ONE (17:00)
[2020-10-29] MEDS: MIRALAX *UNIT DOSE* 17GM PACKET PO PRN (20:29)
[2020-10-29] MEDS: AMITRIPTYLINE 50 MG TAB PO SCH (20:30)
[2020-10-29 22:00] VITALS: BP 102/70
[2020-10-30] MEDS: SODIUM CHLORIDE 0.9% INJ 10 ML SYR IV SCH ×2 (03:57→16:13)
[2020-10-30] MEDS: PIPERACILLIN/TAZOBACTAM SOD 3.375 GM in D5W MINI-BAG PLUS 50 ML IV SCH ×4 (03:57→20:58)
[2020-10-30 05:18] LABS: HEMATOCRIT 28.1 % (36.0-47.0); HEMOGLOBIN 8.6 g/dl (12.0-15.5); MEAN CORPUSCULAR HEMOGLOBIN 27.7 pg (27.0-33.0); MEAN CORPUSCULAR HGB CONC 30.6 g/dl (32.0-36.5); MEAN CORPUSCULAR VOLUME 90.6 fl (80.0-96.0); PLATELET COUNT, AUTOMATED 333 10^3/uL (150-450); WHITE BLOOD COUNT 8.1 10^3/uL (4.0-10.0)
[2020-10-30 05:30] LABS: INR 2.28; PROTHROMBIN TIME 25.5 SECONDS (12.7-14.5)
[2020-10-30 05:45] LABS: CALCIUM LEVEL 8.5 MG/DL (8.8-10.2); CREATININE FOR GFR 1.04 MG/DL (0.55-1.30); GLOMERULAR FILTRATION RATE 56.3 (>45); POTASSIUM SERUM 3.3 MEQ/L (3.5-5.1)
[2020-10-30 06:00] VITALS: BP 142/72
[2020-10-30] MEDS ORDERED: POTASSIUM CHLORIDE 10MEQ SR TABLET PO ONE (07:30)
[2020-10-30] MEDS: HumaLOG INSULIN (NovoLOG) PER UNIT SC SCH ×4 (08:40→21:00)
[2020-10-30] MEDS: FEBUXOSTAT 40 MG TABLET (ULORIC) PO SCH (08:40)
[2020-10-30] MEDS: BUMETANIDE 1 MG TAB PO SCH (08:40)
[2020-10-30] MEDS: ASCORBIC ACID 500 MG TAB PO SCH (08:41)
[2020-10-30] MEDS: CARVedilol 12.5 MG TAB PO SCH ×2 (08:41→20:58)
[2020-10-30] MEDS: PANTOPRAZOLE 40MG TAB (PROTONIX) PO SCH (08:41)
[2020-10-30] MEDS: SENOKOT S TAB PO SCH ×2 (08:41→20:57)
[2020-10-30] MEDS: ASPIRIN 81MG ENTERIC TABLET PO SCH (08:41)
[2020-10-30 14:00] VITALS: BP 140/70
[2020-10-30] MEDS: WARFARIN SOD 2MG TAB PO SCH (16:12)
--- NOTE | 2020-10-30 18:13 | IPNPDOC ---
Text Note Date of Service The patient was seen on 10/30/20. NOTE Hospitalist Progress Note Subjective: Patient is a 65-year-old [place] female who only speaks limited Vietnamese, therefore our interview was conducted in Stateless (as I speak Stateless). She reports that he does not have any pain at this time, and she does not have any other complaints. She is wondering about her INR, and I indicated that today it is within normal limits, and that we would continue monitoring it on a daily basis, and at this time I will leave her on 2 mg daily of warfarin. She understands that she will need to continue with the IV antibiotics for a total of 6 weeks. She also understands that she very likely will need to go to rehab upon discharge from the hospital. She has no further questions or complaints at this time. Objective: General: Awake, alert, oriented 3. Not in any acute distress. HEENT: Head normocephalic, atraumatic, sclera are nonicteric. Hearing is grossly intact to conversation. Respiratory: Clear to auscultation bilaterally with no wheezes, rales, or rhonchi. Cardiovascular: Regular rate and rhythm, with no rubs, gallops, or murmur. Abdomen: Soft, nontender, nondistended, no hepatosplenomegaly appreciated. Bowel sounds present. Extremities: Bilateral heels are bandaged and in the heel float boots. I did not examine them at this time. Assessment/Plan: 1. 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 Bone -Would cultures from the ED growing multiple organisms -ID consulted, recommending 6 weeks of antibiotics (Zosyn). End date would be 11/16/20 2. Acute right MCA stroke with left arm weakness -Code stroke called on morning of 10/20/20. Last normal may have been at 1AM or previous night -Unable to obtain MRI due to pacemaker -Discussed case with Dr. Austin, recommending aspirin at this time and repeat CT head -CT head on 10/21/20 demonstrated acute stroke in the right lentiform nucleus posteriorly measuring 17mm x 8mm x 11mm. Relatively small -LDL of 96. HbA1c 6.4. Bubble study negative. US carotids <50% stenosis -Continue aspirin and warfarin -Patient will need rehab 3. Dysphagia -ST following -Recommend Level 2 diet, pudding thick liquids 4. NSTEMI -Patient denied chest pain -Troponin plateau 5. Gram-negative bacteremia -Seen in 1 blood culture, grew Morganella -On Zosyn 6. Anemia -Anticoagulation held due to hemoglobin which dropped to 7.2. -Hemoglobin stabilized around 8, and is now slowly trending upward 7. DM -Patient on diet -Sliding scale insulin 8. Hypertension -Now all antihypertensives have been restarted -Continue Coreg, Bumex, lisinopril, amlodipine -Pressures continue to be within acceptable limits 9. Atrial fibrillation -Continue Coreg -Continue Warfarin for INR goal of 2-3 -Will adjust warfarin on a daily basis based on INR until steady state is achieved 10. Hyperlipidemia -Continue gemfibrozil and febuxostat 11. GERD -Continue protonix 12. Gout -Continue Uloric 13. CKD stage 3 -Creatinine at baseline 14. DVT ppx -Continue Warfarin. Plan: Pending placement for rehab. We will transition to ALC once unacceptable warfarin dose has been found. VS,Fishbone, I+O VS, Fishbone, I+O Laboratory Tests 10/30/20 05:06 Vital Signs Date Time Temp Pulse Resp B/P (MAP) Pulse Ox O2 Delivery O2 Flow Rate FiO2 10/30/20 14:00 97.5 60 16 140/70 (93) 100 Room Air I&O- Last 24 Hours up to 6 AM 10/30/20 06:00 Intake Total 1290 ml Output Total 1700 ml Balance -410 ml MICKEY LUNDBERG DO Oct 30, 2020 18:13
[2020-10-30] MEDS: AMITRIPTYLINE 50 MG TAB PO SCH (20:57)
[2020-10-30 21:00] VITALS: BP 140/69
[2020-10-31] MEDS: PIPERACILLIN/TAZOBACTAM SOD 3.375 GM in D5W MINI-BAG PLUS 50 ML IV SCH ×4 (03:46→21:54)
[2020-10-31] MEDS: MIRALAX *UNIT DOSE* 17GM PACKET PO PRN (03:46)
[2020-10-31] MEDS: SODIUM CHLORIDE 0.9% INJ 10 ML SYR IV SCH ×2 (05:16→17:11)
[2020-10-31 05:33] LABS: HEMATOCRIT 28.5 % (36.0-47.0); HEMOGLOBIN 8.6 g/dl (12.0-15.5); MEAN CORPUSCULAR HGB CONC 30.2 g/dl (32.0-36.5); MEAN CORPUSCULAR VOLUME 89.6 fl (80.0-96.0); PLATELET COUNT, AUTOMATED 318 10^3/uL (150-450); RED BLOOD COUNT 3.18 10^6/uL (4.00-5.40); WHITE BLOOD COUNT 8.3 10^3/uL (4.0-10.0)
[2020-10-31 05:43] LABS: INR 2.61; PROTHROMBIN TIME 28.3 SECONDS (12.7-14.5)
[2020-10-31 06:05] LABS: CALCIUM LEVEL 8.6 MG/DL (8.8-10.2); CREATININE FOR GFR 1.04 MG/DL (0.55-1.30); GLOMERULAR FILTRATION RATE 56.3 (>45); POTASSIUM SERUM 3.8 MEQ/L (3.5-5.1)
[2020-10-31 06:27] VITALS: BP 147/58
[2020-10-31] MEDS: MOM 30ML SUSPENSION UDC PO PRN (09:37)
[2020-10-31] MEDS: SODIUM CHLORIDE 0.9% INJ 10 ML SYR IV PRN (09:37)
[2020-10-31] MEDS: FEBUXOSTAT 40 MG TABLET (ULORIC) PO SCH (09:38)
[2020-10-31] MEDS: ASCORBIC ACID 500 MG TAB PO SCH (09:38)
[2020-10-31] MEDS: SENOKOT S TAB PO SCH ×2 (09:38→21:57)
[2020-10-31] MEDS: ASPIRIN 81MG ENTERIC TABLET PO SCH (09:38)
[2020-10-31] MEDS: PANTOPRAZOLE 40MG TAB (PROTONIX) PO SCH (09:39)
[2020-10-31] MEDS: MAGNESIUM OXIDE 400MG TAB (MAG-OX) PO SCH (09:39)
[2020-10-31] MEDS: BUMETANIDE 1 MG TAB PO SCH (09:39)
[2020-10-31] MEDS: CARVedilol 12.5 MG TAB PO SCH ×2 (09:40→21:57)
[2020-10-31] MEDS: HumaLOG INSULIN (NovoLOG) PER UNIT SC SCH ×4 (09:41→21:00)
[2020-10-31] MEDS: FLEET ENEMA PR PRN (12:58)
[2020-10-31] MEDS: METAMUCIL (PSYLLIUM) PACKET PO SCH (12:58)
[2020-10-31] MEDS: WARFARIN SOD 2MG TAB PO SCH (17:04)
--- NOTE | 2020-10-31 17:33 | IPNPDOC ---
Text Note Date of Service The patient was seen on 10/31/20. NOTE Hospitalist Progress Note Subjective: Patient is a 65-year-old [place]arusian female who only speaks limited Korean, therefore our interview was conducted in Georgian (as I speak Georgian). She reports that she really does not have any pain at this time. Her only complaint today is that of constipation. She had been receiving Senokot-S 1 tablet twice daily, but apparently this is insufficient. She reports that when she had been hospitalized previously they gave her a packet of powder on a daily basis, I suspect this may have been Metamucil, therefore I will add Metamucil today. I will also increase her Senokot-S to 2 tablets twice a day, and I will also put in a PRN order for an enema if she needs it. She has already taken a dose of MiraLAX and milk of magnesia since last night. She is agreeable to the above-mentioned plan. I also indicated to her that her INR was within the target range once again, and we will continue with warfarin 2 mg daily. Objective: General: Awake, alert, oriented 3. Not in any acute distress. HEENT: Head normocephalic, atraumatic, sclera are nonicteric. Hearing is grossly intact to conversation. Respiratory: Clear to auscultation bilaterally with no wheezes, rales, or rhonchi. Cardiovascular: Regular rate and rhythm, with no rubs, gallops, or murmur. Abdomen: Soft, nontender, nondistended, no hepatosplenomegaly appreciated. Bowel sounds present. Extremities: Bilateral heels are bandaged and in the heel float boots. I did not examine them at this time. Neurological: She does continue to have some left-sided weakness. She states that when she attempts to work with physical therapy her left leg is quite weak and unreliable. She reports that she actually is left-handed, and although her left hand is quite coordinated she still has difficulty with it as she will frequently drop things unintentionally. Assessment/Plan: 1. 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 Bone -Would cultures from the ED growing multiple organisms -ID consulted, recommending 6 weeks of antibiotics (Zosyn). End date would be 11/16/20 2. Acute right MCA stroke with left arm weakness -Code stroke called on morning of 10/20/20. Last normal may have been at 1AM or previous night -Unable to obtain MRI due to pacemaker -Discussed case with Dr. Austin, recommending aspirin at this time and repeat CT head -CT head on 10/21/20 demonstrated acute stroke in the right lentiform nucleus posteriorly measuring 17mm x 8mm x 11mm. Relatively small -LDL of 96. HbA1c 6.4. Bubble study negative. US carotids <50% stenosis -Continue aspirin and warfarin -Patient will need rehab 3. Dysphagia -ST following -Recommend Level 2 diet, pudding thick liquids 4. NSTEMI -Patient denied chest pain -Troponin plateau 5. Gram-negative bacteremia -Seen in 1 blood culture, grew Morganella -On Zosyn 6. Anemia -Anticoagulation held due to hemoglobin which dropped to 7.2. -Hemoglobin stabilized around 8, and is now slowly trending upward 7. DM -Patient on diet -Sliding scale insulin 8. Hypertension -Now all antihypertensives have been restarted -Continue Coreg, Bumex, lisinopril, amlodipine -Pressures continue to be within acceptable limits 9. Atrial fibrillation -Continue Coreg -Continue Warfarin for INR goal of 2-3 -Will adjust warfarin on a daily basis based on INR until steady state is achieved 10. Hyperlipidemia -Continue gemfibrozil and febuxostat 11. GERD -Continue protonix 12. Gout -Continue Uloric 13. CKD stage 3 -Creatinine at baseline 14. DVT ppx -Continue Warfarin. Plan: Pending placement for rehab. Medically she appears quite stable at this time, will transition her to ALC status today. I have ordered repeat INR for t he next few days, and then intermittently thereafter to ensure that her current dose of warfarin continues to maintain her within target range. VS,Fishbone, I+O VS, Fishbone, I+O Laboratory Tests 10/31/20 05:22 Vital Signs Date Time Temp Pulse Resp B/P (MAP) Pulse Ox O2 Delivery O2 Flow Rate FiO2 10/31/20 09:38 61 139/68 10/31/20 06:27 97.2 19 97 Room Air I&O- Last 24 Hours up to 6 AM 10/31/20 06:00 Intake Total 750 ml Output Total 1225 ml Balance -475 ml MICKEY LUNDBERG DO Oct 31, 2020 17:33
[2020-10-31] MEDS: AMITRIPTYLINE 50 MG TAB PO SCH (21:57)
[2020-11-01] MEDS: PIPERACILLIN/TAZOBACTAM SOD 3.375 GM in D5W MINI-BAG PLUS 50 ML IV SCH ×4 (03:33→22:28)
[2020-11-01] MEDS: SODIUM CHLORIDE 0.9% INJ 10 ML SYR IV SCH ×2 (05:01→17:54)
[2020-11-01 05:26] LABS: INR 2.49; PROTHROMBIN TIME 27.3 SECONDS (12.7-14.5)
[2020-11-01 06:00] VITALS: BP 110/57
[2020-11-01] MEDS: HumaLOG INSULIN (NovoLOG) PER UNIT SC SCH ×4 (07:30→22:27)
[2020-11-01] MEDS: METAMUCIL (PSYLLIUM) PACKET PO SCH (09:00)
[2020-11-01] MEDS: CARVedilol 12.5 MG TAB PO SCH ×2 (09:48→22:27)
[2020-11-01] MEDS: ASPIRIN 81MG ENTERIC TABLET PO SCH (09:49)
[2020-11-01] MEDS: FEBUXOSTAT 40 MG TABLET (ULORIC) PO SCH (09:49)
[2020-11-01] MEDS: BUMETANIDE 1 MG TAB PO SCH (09:49)
[2020-11-01] MEDS: SENOKOT S TAB PO SCH ×2 (09:49→22:28)
[2020-11-01] MEDS: PANTOPRAZOLE 40MG TAB (PROTONIX) PO SCH (09:49)
[2020-11-01] MEDS: ASCORBIC ACID 500 MG TAB PO SCH (09:51)
[2020-11-01] MEDS: SODIUM CHLORIDE 0.9% INJ 10 ML SYR IV PRN (09:53)
[2020-11-01] MEDS: MIRALAX *UNIT DOSE* 17GM PACKET PO PRN (09:59)
[2020-11-01] MEDS: ACETAMINOPHEN TAB 650MG DOSE (2X325MG) PO PRN (11:17)
[2020-11-01] MEDS: IBUPROFEN 400MG TAB PO PRN (13:53)
[2020-11-01] MEDS: WARFARIN SOD 2MG TAB PO SCH (16:32)
[2020-11-01] MEDS: AMITRIPTYLINE 50 MG TAB PO SCH (22:25)
[2020-11-02] MEDS: SODIUM CHLORIDE 0.9% INJ 10 ML SYR IV PRN ×4 (00:08→23:13)
[2020-11-02] MEDS: PIPERACILLIN/TAZOBACTAM SOD 3.375 GM in D5W MINI-BAG PLUS 50 ML IV SCH ×4 (04:47→21:51)
[2020-11-02 06:00] VITALS: BP 131/63
[2020-11-02] MEDS: SODIUM CHLORIDE 0.9% INJ 10 ML SYR IV SCH ×2 (06:20→17:51)
[2020-11-02 07:37] LABS: INR 2.85; PROTHROMBIN TIME 30.3 SECONDS (12.7-14.5)
[2020-11-02] MEDS: METAMUCIL (PSYLLIUM) PACKET PO SCH (09:00)
[2020-11-02] MEDS: SENOKOT S TAB PO SCH ×2 (09:00→21:00)
[2020-11-02] MEDS: ASPIRIN 81MG ENTERIC TABLET PO SCH (09:33)
[2020-11-02] MEDS: CARVedilol 12.5 MG TAB PO SCH ×2 (09:33→21:51)
[2020-11-02] MEDS: MAGNESIUM OXIDE 400MG TAB (MAG-OX) PO SCH (09:33)
[2020-11-02] MEDS: ASCORBIC ACID 500 MG TAB PO SCH (09:34)
[2020-11-02] MEDS: PANTOPRAZOLE 40MG TAB (PROTONIX) PO SCH (09:34)
[2020-11-02] MEDS: BUMETANIDE 1 MG TAB PO SCH (09:34)
[2020-11-02] MEDS: FEBUXOSTAT 40 MG TABLET (ULORIC) PO SCH (09:34)
[2020-11-02] MEDS: HumaLOG INSULIN (NovoLOG) PER UNIT SC SCH ×4 (09:35→21:00)
[2020-11-02] MEDS ORDERED: FLUCONAZOLE 100 MG TAB PO ONE (13:20)
[2020-11-02] MEDS: WARFARIN SOD 2MG TAB PO SCH (17:51)
[2020-11-02] MEDS: AMITRIPTYLINE 50 MG TAB PO SCH (21:51)
[2020-11-03] MEDS: PIPERACILLIN/TAZOBACTAM SOD 3.375 GM in D5W MINI-BAG PLUS 50 ML IV SCH ×4 (04:30→21:28)
[2020-11-03 06:00] VITALS: BP 140/68
[2020-11-03] MEDS: SODIUM CHLORIDE 0.9% INJ 10 ML SYR IV SCH ×2 (06:08→17:27)
[2020-11-03 06:32] LABS: HEMATOCRIT 26.6 % (36.0-47.0); HEMOGLOBIN 8.2 g/dl (12.0-15.5); MEAN CORPUSCULAR HEMOGLOBIN 27.3 pg (27.0-33.0); MEAN CORPUSCULAR HGB CONC 30.8 g/dl (32.0-36.5); MEAN CORPUSCULAR VOLUME 88.7 fl (80.0-96.0); PLATELET COUNT, AUTOMATED 287 10^3/uL (150-450); WHITE BLOOD COUNT 7.7 10^3/uL (4.0-10.0)
[2020-11-03 06:42] LABS: INR 3.06; PROTHROMBIN TIME 31.9 SECONDS (12.7-14.5)
[2020-11-03 06:54] LABS: CALCIUM LEVEL 8.3 MG/DL (8.8-10.2); CREATININE FOR GFR 1.05 MG/DL (0.55-1.30); GLOMERULAR FILTRATION RATE 55.7 (>45); POTASSIUM SERUM 4.1 MEQ/L (3.5-5.1)
[2020-11-03] MEDS: HumaLOG INSULIN (NovoLOG) PER UNIT SC SCH ×4 (08:53→21:00)
[2020-11-03] MEDS: FEBUXOSTAT 40 MG TABLET (ULORIC) PO SCH (08:54)
[2020-11-03] MEDS: CARVedilol 12.5 MG TAB PO SCH ×2 (08:54→21:31)
[2020-11-03] MEDS: SENOKOT S TAB PO SCH ×2 (08:56→21:29)
[2020-11-03] MEDS: ASCORBIC ACID 500 MG TAB PO SCH (08:57)
[2020-11-03] MEDS: BUMETANIDE 1 MG TAB PO SCH (08:57)
[2020-11-03] MEDS: ASPIRIN 81MG ENTERIC TABLET PO SCH (08:57)
[2020-11-03] MEDS: PANTOPRAZOLE 40MG TAB (PROTONIX) PO SCH (08:58)
[2020-11-03] MEDS: METAMUCIL (PSYLLIUM) PACKET PO SCH (08:58)
[2020-11-03] MEDS: SODIUM CHLORIDE 0.9% INJ 10 ML SYR IV PRN (12:26)
[2020-11-03 14:00] VITALS: BP 138/76
--- NOTE | 2020-11-03 14:56 | IPNPDOC ---
Text Note Date of Service The patient was seen on 11/03/20. NOTE Subjective: Patient is a 65-year-old female with a PMHx of HTN, CAD, Chronic A. fib, CHF, PVD, DLP, DM2, Gout, Vertigo, GERD who presented to the ER with complaints of infected R heel wound. Patient was admitted to the hospitalist service for further evaluation and treatment. Podiatry and ID were called on consultation. Patient was seen and examined at the bedside. Currently patient denies any CP, SOB or palpitations. Denies any N/V, abdominal pain, C/D or urinary discomfort. Denies any significant pain of her R foot. Objective: Vitals (See below) General: Lying in bed, appears comfortable, AAOx3 HEENT: NC, AT CVS: +S1S2 Lungs: Fair air entry b/l, no evidence of wheezing, rales or rhonchi Abdomen: Soft, non-distended, non-tender Extremities: No evidence of edema, - Calf tenderness Imaging: Extremity CT 10/05: 1. There is a large soft tissue ulceration defect seen in the medial heel pad of the right foot, best seen on image 108 of series 303. 2. Medial to the soft tissue defect there is a fluid and gas collection, likely an abscess, measuring 2.8 x 2.1 cm transversely on image 61 of series 302 and measuring 1.6 cm in craniocaudal dimension on image 104 of series 303. 3. The bony cortical outline and marrow defect underlying the soft tissue defect are suggestive of acute osteomyelitis on image 50 of series 302. 4. No acute fractures. 5. Chronic calcific enthesopathy is seen in the proximal Achilles on image 6 of series 302. Foot XR 10/07: Postsurgical changes at the posterior aspect of calcaneal process. No immediate complication is evident. Head CT 10/20: Mild generalized volume loss. No acute intracranial abnormality. CTA head 10/20: 1. Occluded right middle cerebral artery proximally. 2. Corresponding hypodensity in the right middle cerebral artery territory suggestive of acute infarct. No acute hemorrhage. CXR 11/03: Area of increased density in the right apex should be evaluated further with PA and lateral views. Slight cardiac enlargement. No evidence of failure or pneumonia. PICC line in place with tip in superior vena cava. Carotid Vascular US 10/20: According to the SRU criteria there is less than 50% stenosis of the internal carotid artery bilaterally. This is secondary to both calcified and noncalcified plaque formation CT Head 10/20: 1. There has been no change since a study done earlier in the day. No interval hemorrhage. 2. Minimal chronic ischemic white matter change and atrophy with ill-defined areas of slightly decreased attenuation in the right cerebral hemisphere centrally and subcortical parietal lobe which are unchanged. Esophageal XR 10/21: The patient is able to be given all consistencies performed today. However, there is an increase risk with ingestion of all food because of delayed triggering and pooling in the vallecula. CT head 10/21: New area of abnormal decreased attenuation as described above consistent with an acute nonhemorrhagic infarction. MRI examination of the brain is recommended. CT head 10/22: Who ventricular nucleus and external capsule nonhemorrhagic infarct showing slight increase when compared with yesterday's examination. No evidence of hemorrhage or mass effect. CXR 10/22: Stable cardiomegaly. Cardiac electrodes remain in place Prominent lung markings -- perhaps [id number] vascular congestion. Diffuse interstitial pneumonitis cannot be excluded. Clinical correlation is needed. Follow-up is suggested, as symptoms warrant. CXR 10/25: 1. There is moderate congestive change with moderate pulmonary edema. 2. Mild left basilar atelectasis or infiltrate. Assessment and plan: Infected RLE heel ulcer with acute osteomyelitis of the calcaneum - Currently appears to have areas of necrosis at the edges - s/p Leukocytosis - Wound cultures 10/05: Escherichia coli, Morganella morganii, Enterococcus faecalis, MRSA - s/p Posterior resection of the right calcaneum on 10/07/[address] Bone - Podiatry and infectious disease on consultation; discussed with podiatry this morning, will be evaluating later today for potential additional debridement - c/w Zosyn (End date 11/16/2020) Acute right MCA stroke with left arm weakness - Patient had code stroke called on 8/10 AM - Imaging noted above; Unable to get MRI 2/2 PM - c/w ASA 81 and Warfarin - Will start Atorvastatin 80 - Will need rehabilitation moving forward Dysphagia - c/w Speech therapy recommendations Troponin elevation - likely 2/2 demand ischemia / NSTEMI (Type II) - No chest pain - Troponin has remained stable - c/w Warfarin, Carvedilol, ASA 81 s/p Gram-negative bacteremia - Blood cultures 10/05: (1 of 2) Morganella Morganii - Blood cultures 10/06: Negative at 5 days - c/w Zosyn Anemia - Hg stable IDDM2 - c/w ISS and Levemir HTN - BP well controlled - c/w Carvedilol, Bumetanide, Lisinopril, Amlodipine Chronic Atrial fibrillation - c/w rate control with Carvedilol - INR therapeutic - c/w full anticoagulation with Coumadin DLP - c/w Gemfibrozil Gout - c/w Febuxostat CKD3 - Cr at baseline GI prophylaxis - c/w Protonix DVT prophylaxis - c/w Warfarin Disposition: - Will need rehabilitation moving forward - c/w ALC status VS,Radha, I+O VS, Radha, I+O Laboratory Tests 11/03/20 06:06 Vital Signs Date Time Temp Pulse Resp B/P (MAP) Pulse Ox O2 Delivery O2 Flow Rate FiO2 11/03/20 08:54 61 151/71 11/03/20 06:00 98.8 16 98 Room Air I&O- Last 24 Hours up to 6 AM 11/03/20 06:00 Intake Total 824 ml Output Total 1100 ml Balance -276 ml EMILY SOTO MD Nov 03, 2020 14:56
[2020-11-03] MEDS: ATORVASTATIN 20 MG TAB PO SCH ×2 (15:00→16:25)
[2020-11-03] MEDS: WARFARIN SOD 2MG TAB PO SCH (16:24)
--- NOTE | 2020-11-03 18:02 | IPN ---
PROGRESS NOTE DATE: 11/03/2020 Analisa is stable. She has no chest pain, shortness of breath, nausea, vomiting, or diarrhea. No abdominal pain. She has her dressing changed three times a day. The nurse had just done it before I saw the patient. PHYSICAL EXAMINATION: She is lying in bed, comfortable in no acute distress. Has some expressive dysphasia. Temperature is 97.9, pulse 60, respirations 19, blood pressure 138/76, oxygen saturation 100% on room air. HEART: Normal S1, S2. LUNGS: Clear. No wheezes, rales, or rhonchi. ABDOMEN: Soft, nontender. EXTREMITIES: No edema. Right foot ulceration with ulcer. Not examined today, but according to the nurse, who just did her dressing, there is more area of necrosis. LABORATORY DATA: White count 7.7, hemoglobin 8.2, hematocrit 26.6, platelets 287. Sodium 135, potassium 4.1, chloride 100, bicarbonate 29, BUN 13, creatinine 1.05, glucose 138, calcium 8.3. CRP is down from 9.2 to 3.07 on October 29. IMPRESSION: Acute osteomyelitis of the calcaneus with abscess, status post debridement done by Dr. Bone. The patient has been on intravenous (IV) Zosyn for polymicrobial infection for the past 4 weeks with slow improvement. Continue with IV Zosyn for a total of 6 weeks. We will repeat erythrocyte sedimentation rate (ESR), C-reactive protein (CRP) tomorrow. Labs culture positive for Morganella, Escherichia (E) coli, Enterococcus (E) faecalis, and blood culture was positive for Morganella morganii. Case will be discussed with Dr. Bone this week.
[2020-11-03] MEDS: AMITRIPTYLINE 50 MG TAB PO SCH (21:29)
[2020-11-04] MEDS: PIPERACILLIN/TAZOBACTAM SOD 3.375 GM in D5W MINI-BAG PLUS 50 ML IV SCH ×4 (05:06→22:34)
[2020-11-04] MEDS: SODIUM CHLORIDE 0.9% INJ 10 ML SYR IV SCH ×2 (05:16→18:16)
[2020-11-04 05:36] LABS: BASO # 0.1 10^3/uL (0.0-0.2); BASO % 0.8 % (0.0-1.0); EOS # 0.4 10^3/uL (0.0-0.5); EOS % 4.4 % (0.0-3.0); HEMATOCRIT 26.5 % (36.0-47.0); HEMOGLOBIN 8.3 g/dl (12.0-15.5); LYMPH # 1.7 10^3/uL (1.5-5.0); LYMPH % 17.8 % (24.0-44.0); MEAN CORPUSCULAR HEMOGLOBIN 27.9 pg (27.0-33.0); MEAN CORPUSCULAR HGB CONC 31.3 g/dl (32.0-36.5); MEAN CORPUSCULAR VOLUME 88.9 fl (80.0-96.0); MONO # 1.4 10^3/uL (0.0-0.8); MONO % 14.5 % (2.0-8.0); NEUTROPHILS # 5.9 10^3/uL (1.5-8.5); PLATELET COUNT, AUTOMATED 300 10^3/uL (150-450); RED BLOOD COUNT 2.98 10^6/uL (4.00-5.40); WHITE BLOOD COUNT 9.5 10^3/uL (4.0-10.0)
[2020-11-04 05:47] LABS: INR 2.95; PROTHROMBIN TIME 31.1 SECONDS (12.7-14.5)
[2020-11-04 05:53] LABS: CALCIUM LEVEL 8.4 MG/DL (8.8-10.2); CREATININE FOR GFR 1.15 MG/DL (0.55-1.30); GLOMERULAR FILTRATION RATE 50.1 (>45); MAGNESIUM LEVEL 2.1 MG/DL (1.8-2.4); POTASSIUM SERUM 4.1 MEQ/L (3.5-5.1)
[2020-11-04 06:00] VITALS: BP 121/61
[2020-11-04] MEDS: HumaLOG INSULIN (NovoLOG) PER UNIT SC SCH ×4 (08:50→21:00)
[2020-11-04] MEDS: SENOKOT S TAB PO SCH ×2 (08:50→22:34)
[2020-11-04 08:51] LABS: C REACTIVE PROTEIN QUANTITATIV 4.61 MG/DL (0.00-0.30)
[2020-11-04] MEDS: CARVedilol 12.5 MG TAB PO SCH ×2 (08:51→22:34)
[2020-11-04] MEDS: ATORVASTATIN 20 MG TAB PO SCH (08:51)
[2020-11-04] MEDS: ASCORBIC ACID 500 MG TAB PO SCH (08:51)
[2020-11-04] MEDS: ASPIRIN 81MG ENTERIC TABLET PO SCH (08:51)
[2020-11-04] MEDS: MAGNESIUM OXIDE 400MG TAB (MAG-OX) PO SCH (08:51)
[2020-11-04] MEDS: FEBUXOSTAT 40 MG TABLET (ULORIC) PO SCH (08:51)
[2020-11-04] MEDS: METAMUCIL (PSYLLIUM) PACKET PO SCH (08:52)
[2020-11-04] MEDS: PANTOPRAZOLE 40MG TAB (PROTONIX) PO SCH (08:52)
[2020-11-04] MEDS: BUMETANIDE 1 MG TAB PO SCH (08:53)
--- NOTE | 2020-11-04 09:29 | IPN ---
PROGRESS NOTE DATE: 11/03/2020 TIME: Approximately 8 p.m. CHIEF COMPLAINT: Patient seen at bedside for evaluation of an ulceration on the posterior aspect of the right heel. OBJECTIVE: The bandage was removed today. There is some black necrotic superficial tissue surrounding the ulcer site. Otherwise, the ulcer site displays yellow to red granulation tissue. The calcaneus is visible in the wound, is viable and firm to touch with a sterile glove. Utilizing sterile scalpel and sterile curette after appropriate time-out and consent, excisional debridement was performed through the skin, subcutaneous tissue and fascial structures. Post debridement measurement is 5.9 cm x 5.1 cm x 0.5 cm in depth. There was no purulence, odor, or signs of continued deep infection. ASSESSMENT: Stage IV ulceration as described of right heel. PLAN: As described. After appropriate time-out and consent, an excisional debridement was performed through the subcutaneous tissues and fascial structures. Vashe was applied to the wound for 10 minutes followed by a hydrocolloid saline dressing which will be changed b.i.d., discontinue Betadine solution since the wound is now dried out and there is no surrounding maceration. Patient's questions are answered. Continue to offload with an off-loading boot.
[2020-11-04] MEDS: WARFARIN SOD 2MG TAB PO SCH (16:48)
[2020-11-04] MEDS: AMITRIPTYLINE 50 MG TAB PO SCH (22:34)
[2020-11-05] MEDS: PIPERACILLIN/TAZOBACTAM SOD 3.375 GM in D5W MINI-BAG PLUS 50 ML IV SCH ×4 (04:23→22:20)
[2020-11-05] MEDS: SODIUM CHLORIDE 0.9% INJ 10 ML SYR IV SCH ×2 (05:51→17:40)
[2020-11-05 06:00] VITALS: BP 124/61
[2020-11-05 06:11] LABS: BASO # 0.1 10^3/uL (0.0-0.2); BASO % 0.7 % (0.0-1.0); EOS # 0.4 10^3/uL (0.0-0.5); EOS % 4.9 % (0.0-3.0); HEMATOCRIT 26.3 % (36.0-47.0); LYMPH # 1.7 10^3/uL (1.5-5.0); LYMPH % 20.9 % (24.0-44.0); MEAN CORPUSCULAR HEMOGLOBIN 27.2 pg (27.0-33.0); MEAN CORPUSCULAR HGB CONC 30.4 g/dl (32.0-36.5); MEAN CORPUSCULAR VOLUME 89.5 fl (80.0-96.0); MONO # 1.1 10^3/uL (0.0-0.8); MONO % 13.8 % (2.0-8.0); NEUTROPHILS # 4.8 10^3/uL (1.5-8.5); NEUTROPHILS % 59.2 % (36.0-66.0); PLATELET COUNT, AUTOMATED 304 10^3/uL (150-450); RED BLOOD COUNT 2.94 10^6/uL (4.00-5.40)
[2020-11-05 06:37] LABS: CALCIUM LEVEL 8.2 MG/DL (8.8-10.2); CREATININE FOR GFR 1.06 MG/DL (0.55-1.30); MAGNESIUM LEVEL 2.1 MG/DL (1.8-2.4); POTASSIUM SERUM 3.9 MEQ/L (3.5-5.1)
[2020-11-05 07:30] LABS: INR 2.56; PROTHROMBIN TIME 27.9 SECONDS (12.7-14.5)
[2020-11-05] MEDS: METAMUCIL (PSYLLIUM) PACKET PO SCH (08:09)
[2020-11-05] MEDS: BUMETANIDE 1 MG TAB PO SCH (08:09)
[2020-11-05] MEDS: HumaLOG INSULIN (NovoLOG) PER UNIT SC SCH ×4 (08:09→21:00)
[2020-11-05] MEDS: ATORVASTATIN 20 MG TAB PO SCH (08:10)
[2020-11-05] MEDS: ASCORBIC ACID 500 MG TAB PO SCH (08:11)
[2020-11-05] MEDS: SENOKOT S TAB PO SCH ×2 (08:11→22:19)
[2020-11-05] MEDS: ASPIRIN 81MG ENTERIC TABLET PO SCH (08:11)
[2020-11-05] MEDS: CARVedilol 12.5 MG TAB PO SCH ×2 (08:11→22:20)
[2020-11-05] MEDS: FEBUXOSTAT 40 MG TABLET (ULORIC) PO SCH (08:11)
[2020-11-05] MEDS: PANTOPRAZOLE 40MG TAB (PROTONIX) PO SCH (08:11)
[2020-11-05] MEDS: WARFARIN SOD 2MG TAB PO SCH (17:39)
[2020-11-05] MEDS: AMITRIPTYLINE 50 MG TAB PO SCH (22:19)
[2020-11-06] MEDS: PIPERACILLIN/TAZOBACTAM SOD 3.375 GM in D5W MINI-BAG PLUS 50 ML IV SCH ×4 (03:45→21:30)
[2020-11-06] MEDS: SODIUM CHLORIDE 0.9% INJ 10 ML SYR IV SCH ×2 (05:11→17:47)
[2020-11-06 05:26] LABS: BASO # 0.1 10^3/uL (0.0-0.2); BASO % 0.9 % (0.0-1.0); EOS # 0.4 10^3/uL (0.0-0.5); EOS % 4.5 % (0.0-3.0); HEMATOCRIT 25.7 % (36.0-47.0); HEMOGLOBIN 7.8 g/dl (12.0-15.5); LYMPH # 1.8 10^3/uL (1.5-5.0); LYMPH % 20.4 % (24.0-44.0); MEAN CORPUSCULAR HGB CONC 30.4 g/dl (32.0-36.5); MEAN CORPUSCULAR VOLUME 88.9 fl (80.0-96.0); MONO # 1.4 10^3/uL (0.0-0.8); NEUTROPHILS # 5.1 10^3/uL (1.5-8.5); NEUTROPHILS % 57.5 % (36.0-66.0); PLATELET COUNT, AUTOMATED 339 10^3/uL (150-450); RED BLOOD COUNT 2.89 10^6/uL (4.00-5.40); WHITE BLOOD COUNT 8.8 10^3/uL (4.0-10.0)
[2020-11-06 05:37] LABS: INR 2.89; PROTHROMBIN TIME 30.5 SECONDS (12.7-14.5)
[2020-11-06 05:54] LABS: C REACTIVE PROTEIN QUANTITATIV 5.77 MG/DL (0.00-0.30); CALCIUM LEVEL 8.4 MG/DL (8.8-10.2); CREATININE FOR GFR 1.11 MG/DL (0.55-1.30); GLOMERULAR FILTRATION RATE 52.2 (>45); MAGNESIUM LEVEL 1.9 MG/DL (1.8-2.4); POTASSIUM SERUM 3.7 MEQ/L (3.5-5.1)
[2020-11-06 05:58] LABS: ERYTHROCYTE SEDIMENTATION RATE 126 mm/hr (0-30)
[2020-11-06 06:00] VITALS: BP 124/64
[2020-11-06] MEDS: METAMUCIL (PSYLLIUM) PACKET PO SCH (09:02)
[2020-11-06] MEDS: SENOKOT S TAB PO SCH ×2 (09:02→21:30)
[2020-11-06] MEDS: HumaLOG INSULIN (NovoLOG) PER UNIT SC SCH ×4 (09:02→21:00)
[2020-11-06] MEDS: CARVedilol 12.5 MG TAB PO SCH ×2 (09:03→21:30)
[2020-11-06] MEDS: PANTOPRAZOLE 40MG TAB (PROTONIX) PO SCH (09:03)
[2020-11-06] MEDS: ASPIRIN 81MG ENTERIC TABLET PO SCH (09:03)
[2020-11-06] MEDS: ATORVASTATIN 20 MG TAB PO SCH (09:03)
[2020-11-06] MEDS: BUMETANIDE 1 MG TAB PO SCH (09:03)
[2020-11-06] MEDS: FEBUXOSTAT 40 MG TABLET (ULORIC) PO SCH (09:03)
[2020-11-06] MEDS: MAGNESIUM OXIDE 400MG TAB (MAG-OX) PO SCH (09:04)
[2020-11-06] MEDS: ASCORBIC ACID 500 MG TAB PO SCH (09:04)
--- NOTE | 2020-11-06 11:42 | REP ---
INDICATION: s/p resection infected bone calcaneus COMPARISON: None. TECHNIQUE: AP and lateral right foot FINDINGS: Soft tissue and bony defect along the posterior aspect of the foot and calcaneus with overlying soft tissue swelling. Remainder of the osseous structures demonstrate age-related osteopenia and degenerative changes. Significant vascular calcifications noted. IMPRESSION: Soft tissue and bony defect along the posterior aspect of the foot involving calcaneus. <Electronically signed by Gorge Palafox > 11/06/20 [id number]
[2020-11-06] MEDS: WARFARIN SOD 2MG TAB PO SCH (17:46)
[2020-11-06] MEDS: AMITRIPTYLINE 50 MG TAB PO SCH (21:29)
[2020-11-07] VITALS (10 sets, daily range): BP systolic 110–138; BP diastolic 60–70
[2020-11-07] MEDS: PIPERACILLIN/TAZOBACTAM SOD 3.375 GM in D5W MINI-BAG PLUS 50 ML IV SCH ×4 (04:41→21:11)
[2020-11-07] MEDS: SODIUM CHLORIDE 0.9% INJ 10 ML SYR IV SCH ×3 (05:57→16:58)
[2020-11-07 06:16] LABS: BASO # 0.1 10^3/uL (0.0-0.2); EOS # 0.3 10^3/uL (0.0-0.5); EOS % 2.8 % (0.0-3.0); HEMOGLOBIN 7.7 g/dl (12.0-15.5); LYMPH # 1.6 10^3/uL (1.5-5.0); LYMPH % 17.5 % (24.0-44.0); MEAN CORPUSCULAR HEMOGLOBIN 27.1 pg (27.0-33.0); MEAN CORPUSCULAR HGB CONC 30.8 g/dl (32.0-36.5); MONO # 1.4 10^3/uL (0.0-0.8); MONO % 14.4 % (2.0-8.0); NEUTROPHILS % 63.8 % (36.0-66.0); PLATELET COUNT, AUTOMATED 344 10^3/uL (150-450); RED BLOOD COUNT 2.84 10^6/uL (4.00-5.40); WHITE BLOOD COUNT 9.4 10^3/uL (4.0-10.0)
[2020-11-07 06:26] LABS: INR 2.85; PROTHROMBIN TIME 30.2 SECONDS (12.7-14.5)
[2020-11-07 06:47] LABS: CALCIUM LEVEL 8.6 MG/DL (8.8-10.2); CREATININE FOR GFR 1.01 MG/DL (0.55-1.30); GLOMERULAR FILTRATION RATE 58.2 (>45); MAGNESIUM LEVEL 1.9 MG/DL (1.8-2.4); POTASSIUM SERUM 3.9 MEQ/L (3.5-5.1)
[2020-11-07] MEDS: SENOKOT S TAB PO SCH ×2 (08:46→21:10)
[2020-11-07] MEDS: ASCORBIC ACID 500 MG TAB PO SCH (08:46)
[2020-11-07] MEDS: PANTOPRAZOLE 40MG TAB (PROTONIX) PO SCH (08:46)
[2020-11-07] MEDS: ASPIRIN 81MG ENTERIC TABLET PO SCH (08:47)
[2020-11-07] MEDS: CARVedilol 12.5 MG TAB PO SCH ×2 (08:47→21:11)
[2020-11-07] MEDS: ATORVASTATIN 20 MG TAB PO SCH (08:47)
[2020-11-07] MEDS: FEBUXOSTAT 40 MG TABLET (ULORIC) PO SCH (08:48)
[2020-11-07] MEDS: BUMETANIDE 1 MG TAB PO SCH (08:48)
[2020-11-07] MEDS: HumaLOG INSULIN (NovoLOG) PER UNIT SC SCH ×4 (08:49→21:00)
[2020-11-07] MEDS: METAMUCIL (PSYLLIUM) PACKET PO SCH (08:51)
[2020-11-07] MEDS: WARFARIN SOD 2MG TAB PO SCH (16:57)
[2020-11-07] MEDS: AMITRIPTYLINE 50 MG TAB PO SCH (21:09)
[2020-11-07] MEDS: SODIUM CHLORIDE 0.9% INJ 10 ML SYR IV PRN (22:34)
[2020-11-08] MEDS: PIPERACILLIN/TAZOBACTAM SOD 3.375 GM in D5W MINI-BAG PLUS 50 ML IV SCH ×4 (04:29→21:28)
[2020-11-08] MEDS: SODIUM CHLORIDE 0.9% INJ 10 ML SYR IV PRN ×3 (05:36→21:30)
[2020-11-08 06:00] VITALS: BP 135/75
[2020-11-08 06:51] LABS: BASO # 0.1 10^3/uL (0.0-0.2); BASO % 0.9 % (0.0-1.0); EOS # 0.3 10^3/uL (0.0-0.5); EOS % 2.8 % (0.0-3.0); HEMATOCRIT 28.7 % (36.0-47.0); HEMOGLOBIN 9.3 g/dl (12.0-15.5); LYMPH # 1.7 10^3/uL (1.5-5.0); LYMPH % 18.6 % (24.0-44.0); MEAN CORPUSCULAR HEMOGLOBIN 28.2 pg (27.0-33.0); MEAN CORPUSCULAR HGB CONC 32.4 g/dl (32.0-36.5); MONO # 1.3 10^3/uL (0.0-0.8); MONO % 13.5 % (2.0-8.0); NEUTROPHILS # 5.9 10^3/uL (1.5-8.5); NEUTROPHILS % 63.7 % (36.0-66.0); PLATELET COUNT, AUTOMATED 338 10^3/uL (150-450); WHITE BLOOD COUNT 9.3 10^3/uL (4.0-10.0)
[2020-11-08 06:53] LABS: BASO # 0.1 10^3/uL (0.0-0.2); EOS # 0.3 10^3/uL (0.0-0.5); EOS % 3.1 % (0.0-3.0); HEMATOCRIT 29.1 % (36.0-47.0); HEMOGLOBIN 9.3 g/dl (12.0-15.5); LYMPH # 1.7 10^3/uL (1.5-5.0); LYMPH % 17.8 % (24.0-44.0); MEAN CORPUSCULAR HEMOGLOBIN 27.8 pg (27.0-33.0); MEAN CORPUSCULAR VOLUME 86.9 fl (80.0-96.0); MONO # 1.3 10^3/uL (0.0-0.8); NEUTROPHILS # 5.9 10^3/uL (1.5-8.5); NEUTROPHILS % 63.6 % (36.0-66.0); PLATELET COUNT, AUTOMATED 340 10^3/uL (150-450); RED BLOOD COUNT 3.35 10^6/uL (4.00-5.40); WHITE BLOOD COUNT 9.3 10^3/uL (4.0-10.0)
[2020-11-08 07:03] LABS: INR 2.85; PROTHROMBIN TIME 30.3 SECONDS (12.7-14.5)
[2020-11-08 07:11] LABS: CALCIUM LEVEL 8.3 MG/DL (8.8-10.2); CREATININE FOR GFR 0.99 MG/DL (0.55-1.30); GLOMERULAR FILTRATION RATE 59.6 (>45); MAGNESIUM LEVEL 1.8 MG/DL (1.8-2.4); POTASSIUM SERUM 3.6 MEQ/L (3.5-5.1)
[2020-11-08 07:24] LABS: C REACTIVE PROTEIN QUANTITATIV 6.33 MG/DL (0.00-0.30); CALCIUM LEVEL 8.4 MG/DL (8.8-10.2); CREATININE FOR GFR 1.04 MG/DL (0.55-1.30); GLOMERULAR FILTRATION RATE 56.3 (>45); MAGNESIUM LEVEL 1.8 MG/DL (1.8-2.4); POTASSIUM SERUM 3.9 MEQ/L (3.5-5.1)
[2020-11-08] MEDS: HumaLOG INSULIN (NovoLOG) PER UNIT SC SCH ×4 (07:36→21:00)
[2020-11-08] MEDS: SENOKOT S TAB PO SCH ×2 (09:44→21:28)
[2020-11-08] MEDS: FEBUXOSTAT 40 MG TABLET (ULORIC) PO SCH (09:44)
[2020-11-08] MEDS: METAMUCIL (PSYLLIUM) PACKET PO SCH (09:44)
[2020-11-08] MEDS: ASPIRIN 81MG ENTERIC TABLET PO SCH (09:45)
[2020-11-08] MEDS: ATORVASTATIN 20 MG TAB PO SCH (09:45)
[2020-11-08] MEDS: ASCORBIC ACID 500 MG TAB PO SCH (09:46)
[2020-11-08] MEDS: PANTOPRAZOLE 40MG TAB (PROTONIX) PO SCH (09:46)
[2020-11-08] MEDS: BUMETANIDE 1 MG TAB PO SCH (09:46)
[2020-11-08] MEDS: MAGNESIUM OXIDE 400MG TAB (MAG-OX) PO SCH (09:46)
[2020-11-08] MEDS: CARVedilol 12.5 MG TAB PO SCH ×2 (09:47→21:29)
[2020-11-08] MEDS: WARFARIN SOD 2MG TAB PO SCH (16:33)
[2020-11-08] MEDS: SODIUM CHLORIDE 0.9% INJ 10 ML SYR IV SCH (16:34)
[2020-11-08] MEDS: AMITRIPTYLINE 50 MG TAB PO SCH (21:28)
[2020-11-08] MEDS: IBUPROFEN 400MG TAB PO PRN (21:56)
[2020-11-09] MEDS: PIPERACILLIN/TAZOBACTAM SOD 3.375 GM in D5W MINI-BAG PLUS 50 ML IV SCH ×4 (04:47→21:59)
[2020-11-09] MEDS: SODIUM CHLORIDE 0.9% INJ 10 ML SYR IV SCH ×2 (04:48→17:27)
[2020-11-09 06:00] VITALS: BP 138/72
[2020-11-09 06:08] LABS: BASO # 0.1 10^3/uL (0.0-0.2); EOS # 0.3 10^3/uL (0.0-0.5); EOS % 3.6 % (0.0-3.0); HEMOGLOBIN 9.2 g/dl (12.0-15.5); LYMPH # 1.8 10^3/uL (1.5-5.0); LYMPH % 20.3 % (24.0-44.0); MEAN CORPUSCULAR HEMOGLOBIN 27.6 pg (27.0-33.0); MEAN CORPUSCULAR HGB CONC 31.7 g/dl (32.0-36.5); MEAN CORPUSCULAR VOLUME 87.1 fl (80.0-96.0); MONO # 1.3 10^3/uL (0.0-0.8); MONO % 14.4 % (2.0-8.0); NEUTROPHILS # 5.4 10^3/uL (1.5-8.5); NEUTROPHILS % 60.3 % (36.0-66.0); PLATELET COUNT, AUTOMATED 346 10^3/uL (150-450); RED BLOOD COUNT 3.33 10^6/uL (4.00-5.40)
[2020-11-09 06:20] LABS: INR 3.09; PROTHROMBIN TIME 32.2 SECONDS (12.7-14.5)
[2020-11-09 06:29] LABS: BLOOD UREA NITROGEN 13 MG/DL (7-18); CALCIUM LEVEL 8.5 MG/DL (8.8-10.2); CARBON DIOXIDE LEVEL 30 MEQ/L (21-32); CHLORIDE LEVEL 99 MEQ/L (98-107); CREATININE FOR GFR 0.94 MG/DL (0.55-1.30); GLOMERULAR FILTRATION RATE > 60.0 (>45); GLUCOSE, FASTING 151 MG/DL (70-100); MAGNESIUM LEVEL 1.8 MG/DL (1.8-2.4); POTASSIUM SERUM 3.5 MEQ/L (3.5-5.1); SODIUM LEVEL 135 MEQ/L (136-145)
[2020-11-09 08:00] VITALS: BP 137/75
[2020-11-09] MEDS: HumaLOG INSULIN (NovoLOG) PER UNIT SC SCH ×4 (08:00→21:00)
[2020-11-09] MEDS: METAMUCIL (PSYLLIUM) PACKET PO SCH (08:54)
[2020-11-09] MEDS: ASPIRIN 81MG ENTERIC TABLET PO SCH (08:56)
[2020-11-09] MEDS: SENOKOT S TAB PO SCH ×2 (08:56→21:59)
[2020-11-09] MEDS: CARVedilol 12.5 MG TAB PO SCH ×2 (08:57→22:00)
[2020-11-09] MEDS: PANTOPRAZOLE 40MG TAB (PROTONIX) PO SCH (08:57)
[2020-11-09] MEDS: ATORVASTATIN 20 MG TAB PO SCH (08:57)
[2020-11-09] MEDS: ASCORBIC ACID 500 MG TAB PO SCH (08:58)
[2020-11-09] MEDS: FEBUXOSTAT 40 MG TABLET (ULORIC) PO SCH (09:01)
[2020-11-09] MEDS: BUMETANIDE 1 MG TAB PO SCH (09:01)
[2020-11-09] MEDS: WARFARIN SOD 2MG TAB PO SCH (17:27)
[2020-11-09] MEDS: AMITRIPTYLINE 50 MG TAB PO SCH (21:59)
[2020-11-09] MEDS: SODIUM CHLORIDE 0.9% INJ 10 ML SYR IV PRN (23:29)
[2020-11-10] MEDS: PIPERACILLIN/TAZOBACTAM SOD 3.375 GM in D5W MINI-BAG PLUS 50 ML IV SCH ×4 (05:14→22:52)
[2020-11-10 05:46] LABS: BASO # 0.1 10^3/uL (0.0-0.2); BASO % 0.7 % (0.0-1.0); EOS # 0.1 10^3/uL (0.0-0.5); EOS % 1.2 % (0.0-3.0); HEMATOCRIT 28.6 % (36.0-47.0); HEMOGLOBIN 9.1 g/dl (12.0-15.5); LYMPH # 1.7 10^3/uL (1.5-5.0); LYMPH % 15.1 % (24.0-44.0); MEAN CORPUSCULAR HEMOGLOBIN 27.9 pg (27.0-33.0); MEAN CORPUSCULAR HGB CONC 31.8 g/dl (32.0-36.5); MEAN CORPUSCULAR VOLUME 87.7 fl (80.0-96.0); MONO # 1.3 10^3/uL (0.0-0.8); MONO % 11.7 % (2.0-8.0); NEUTROPHILS % 70.7 % (36.0-66.0); PLATELET COUNT, AUTOMATED 365 10^3/uL (150-450); RED BLOOD COUNT 3.26 10^6/uL (4.00-5.40); WHITE BLOOD COUNT 11.3 10^3/uL (4.0-10.0)
[2020-11-10 05:58] LABS: INR 2.57
[2020-11-10 06:00] VITALS: BP 137/71
[2020-11-10 06:14] LABS: BLOOD UREA NITROGEN 14 MG/DL (7-18); CALCIUM LEVEL 8.5 MG/DL (8.8-10.2); CARBON DIOXIDE LEVEL 30 MEQ/L (21-32); CHLORIDE LEVEL 98 MEQ/L (98-107); CREATININE FOR GFR 0.94 MG/DL (0.55-1.30); GLOMERULAR FILTRATION RATE > 60.0 (>45); GLUCOSE, FASTING 176 MG/DL (70-100); MAGNESIUM LEVEL 1.8 MG/DL (1.8-2.4); POTASSIUM SERUM 3.4 MEQ/L (3.5-5.1); SODIUM LEVEL 134 MEQ/L (136-145)
[2020-11-10] MEDS: SODIUM CHLORIDE 0.9% INJ 10 ML SYR IV SCH ×2 (06:35→17:12)
[2020-11-10] MEDS: HumaLOG INSULIN (NovoLOG) PER UNIT SC SCH ×4 (08:02→21:00)
[2020-11-10] MEDS: SENOKOT S TAB PO SCH ×2 (08:56→22:50)
[2020-11-10] MEDS: BUMETANIDE 1 MG TAB PO SCH (08:56)
[2020-11-10] MEDS: ATORVASTATIN 20 MG TAB PO SCH (08:56)
[2020-11-10] MEDS: MAGNESIUM OXIDE 400MG TAB (MAG-OX) PO SCH (08:56)
[2020-11-10] MEDS: FEBUXOSTAT 40 MG TABLET (ULORIC) PO SCH (08:56)
[2020-11-10] MEDS: ASPIRIN 81MG ENTERIC TABLET PO SCH (08:56)
[2020-11-10] MEDS: PANTOPRAZOLE 40MG TAB (PROTONIX) PO SCH (08:57)
[2020-11-10] MEDS: ASCORBIC ACID 500 MG TAB PO SCH (08:57)
[2020-11-10] MEDS: CARVedilol 12.5 MG TAB PO SCH ×2 (08:58→22:52)
[2020-11-10] MEDS: METAMUCIL (PSYLLIUM) PACKET PO SCH ×2 (08:58→09:00)
[2020-11-10] MEDS: WARFARIN SOD 2MG TAB PO SCH (17:17)
[2020-11-10 21:18] LABS: ERYTHROCYTE SEDIMENTATION RATE 128 mm/hr (0-30)
[2020-11-10] MEDS: AMITRIPTYLINE 50 MG TAB PO SCH (22:50)
[2020-11-10] MEDS: IBUPROFEN 400MG TAB PO PRN (22:51)
[2020-11-11] MEDS: SODIUM CHLORIDE 0.9% INJ 10 ML SYR IV PRN (00:26)
[2020-11-11] MEDS: PIPERACILLIN/TAZOBACTAM SOD 3.375 GM in D5W MINI-BAG PLUS 50 ML IV SCH ×4 (05:58→22:54)
[2020-11-11] MEDS: SODIUM CHLORIDE 0.9% INJ 10 ML SYR IV SCH ×2 (05:59→16:34)
[2020-11-11 06:00] VITALS: BP 129/64
[2020-11-11] MEDS: METAMUCIL (PSYLLIUM) PACKET PO SCH (09:00)
[2020-11-11] MEDS: SENOKOT S TAB PO SCH ×2 (09:17→22:53)
[2020-11-11] MEDS: ATORVASTATIN 20 MG TAB PO SCH (09:17)
[2020-11-11] MEDS: PANTOPRAZOLE 40MG TAB (PROTONIX) PO SCH (09:18)
[2020-11-11] MEDS: CARVedilol 12.5 MG TAB PO SCH ×2 (09:18→22:54)
[2020-11-11] MEDS: ASPIRIN 81MG ENTERIC TABLET PO SCH (09:18)
[2020-11-11] MEDS: ASCORBIC ACID 500 MG TAB PO SCH (09:19)
[2020-11-11] MEDS: HumaLOG INSULIN (NovoLOG) PER UNIT SC SCH ×4 (09:20→21:00)
[2020-11-11] MEDS: FEBUXOSTAT 40 MG TABLET (ULORIC) PO SCH (09:27)
[2020-11-11] MEDS: BUMETANIDE 1 MG TAB PO SCH (09:27)
--- NOTE | 2020-11-11 11:20 | IPNPDOC ---
Text Note Date of Service The patient was seen on 11/11/20. NOTE Subjective: 65-year-old female with a PMHx of HTN, CAD, Chronic A. fib, CHF, PVD, DLP, DM2, Gout, Vertigo, GERD who presented to the ER with complaints of infected R heel wound. Patient was admitted to the hospitalist service for further evaluation and treatment. Podiatry and ID were called on consultation. Patient was seen and examined at the bedside. Currently patient denies any CP, SOB or palpitations. Denies any N/V, abdominal pain, C/D or urinary discomfort. Denies any significant pain of her R foot. Objective: Vitals (See below) General: Lying in bed, appears comfortable, AAOx3 HEENT: NC, AT CVS: +S1S2 Lungs: Fair air entry b/l, no evidence of wheezing, rales or rhonchi Abdomen: Soft, non-distended, non-tender Extremities: No evidence of edema, - Calf tenderness A/P: #Infected RLE heel ulcer with acute osteomyelitis of the calcaneum - s/p multiple debridements/surgical resection with podiatry/surgery - Wound cultures 10/05: Escherichia coli, Morganella morganii, Enterococcus faecalis, MRSA - s/p Posterior resection of the right calcaneum on 10/07/[address] Bone - Podiatry and infectious disease on consultation - c/w Zosyn (End date 11/16/2020) #Acute right MCA stroke with left arm weakness - Patient had code stroke called on 8/10 AM - Unable to get MRI 2/2 PM - c/w ASA 81 and Warfarin - continue Atorvastatin 80 - Will need rehabilitation moving forward #Dysphagia - c/w Speech therapy recommendations Troponin elevation - likely 2/2 demand ischemia / NSTEMI (Type II) - No chest pain - Troponin has remained stable - c/w Warfarin, Carvedilol, ASA 81 s/p Gram-negative bacteremia - Blood cultures 10/05: (1 of 2) Morganella Morganii - Blood cultures 10/06: Negative at 5 days - c/w Zosyn Anemia - Hg stable IDDM2 - c/w ISS and Levemir HTN - BP well controlled - c/w Carvedilol, Bumetanide, Lisinopril, Amlodipine Chronic Atrial fibrillation - c/w rate control with Carvedilol - INR therapeutic - c/w full anticoagulation with Coumadin DLP - c/w Gemfibrozil Gout - c/w Febuxostat CKD3 - Cr at baseline GI prophylaxis - c/w Protonix DVT prophylaxis - c/w Warfarin Disposition: - Will need rehabilitation moving forward - c/w ALC status VS,Fishbone, I+O VS, Fishbone, I+O Vital Signs Date Time Temp Pulse Resp B/P (MAP) Pulse Ox O2 Delivery O2 Flow Rate FiO2 11/11/20 09:19 62 134/70 11/11/20 06:00 97.0 18 98 Room Air I&O- Last 24 Hours up to 6 AM 11/11/20 06:00 Intake Total 960 ml Output Total 650 ml Balance 310 ml AMY BRADY MD Nov 11, 2020 11:20
[2020-11-11] MEDS ORDERED: E-Z-PAQUE 96% w/w SUSP 176GM BTL As Ordered ONE (11:41)
[2020-11-11] MEDS ORDERED: VARIBAR PUDDING 40% w/v 230ML TUBE As Ordered ONE (11:41)
[2020-11-11] MEDS ORDERED: VARIBAR NECTAR 40% w/v 240ML SUSP BTL As Ordered ONE (11:41)
[2020-11-11] MEDS ORDERED: BARIUM SULFATE 700 MG TABLET (E-Z-DISK) As Ordered ONE (11:42)
[2020-11-11] MEDS: WARFARIN SOD 2MG TAB PO SCH (16:33)
--- NOTE | 2020-11-11 17:52 | REP ---
INDICATION: reevaluate swallow. COMPARISON: None. TECHNIQUE: The procedure was performed by Hiwot Gooden [facility], under the direct supervision of Dr. Rea. The procedure was performed with Aziza Betancourt from speech pathology present. 5 ml aliquots of thin, nectar thick, honey thick pudding, mixed fruit with a thin base, soft food, hard food and pill consistency barium was administered. FINDINGS: Flash penetration was visualized with both nectar thick consistencies as well as mix consistency with a thin base. The detailed report of this examination will be provided by speech pathology. IMPRESSION: Flash penetration as described above, a detailed report will be provided by speech pathology. 3.3 minutes of fluoroscopy time was utilized for this procedure. Some fluoroscopic images are performed with last image hold technology. These images require no additional radiation <Electronically signed by Hiwot Gooden > 11/11/20 1520 <Electronically signed by Micah Rea > 11/11/20 [id number]
[2020-11-11] MEDS ORDERED: GABAPENTIN 300 MG CAP PO ONE (22:00)
[2020-11-11] MEDS: AMITRIPTYLINE 50 MG TAB PO SCH (22:54)
[2020-11-12] MEDS: SODIUM CHLORIDE 0.9% INJ 10 ML SYR IV SCH ×2 (05:51→17:22)
[2020-11-12] MEDS: PIPERACILLIN/TAZOBACTAM SOD 3.375 GM in D5W MINI-BAG PLUS 50 ML IV SCH ×4 (05:51→22:17)
[2020-11-12 06:00] VITALS: BP 135/69
[2020-11-12 06:09] LABS: HEMATOCRIT 28.9 % (36.0-47.0); HEMOGLOBIN 9.1 g/dl (12.0-15.5); MEAN CORPUSCULAR HEMOGLOBIN 27.7 pg (27.0-33.0); MEAN CORPUSCULAR HGB CONC 31.5 g/dl (32.0-36.5); MEAN CORPUSCULAR VOLUME 87.8 fl (80.0-96.0); PLATELET COUNT, AUTOMATED 387 10^3/uL (150-450); RED BLOOD COUNT 3.29 10^6/uL (4.00-5.40); WHITE BLOOD COUNT 10.3 10^3/uL (4.0-10.0)
[2020-11-12 06:29] LABS: CALCIUM LEVEL 8.6 MG/DL (8.8-10.2); CREATININE FOR GFR 1.2 MG/DL (0.55-1.30); GLOMERULAR FILTRATION RATE 47.7 (>45); MAGNESIUM LEVEL 1.9 MG/DL (1.8-2.4); POTASSIUM SERUM 3.6 MEQ/L (3.5-5.1)
[2020-11-12] MEDS: HumaLOG INSULIN (NovoLOG) PER UNIT SC SCH ×4 (07:30→20:00)
[2020-11-12] MEDS: METAMUCIL (PSYLLIUM) PACKET PO SCH (09:00)
[2020-11-12] MEDS: ATORVASTATIN 20 MG TAB PO SCH (09:53)
[2020-11-12] MEDS: ASCORBIC ACID 500 MG TAB PO SCH (09:54)
[2020-11-12] MEDS: ASPIRIN 81MG ENTERIC TABLET PO SCH (09:54)
[2020-11-12] MEDS: PANTOPRAZOLE 40MG TAB (PROTONIX) PO SCH (09:54)
[2020-11-12] MEDS: BUMETANIDE 1 MG TAB PO SCH (09:54)
[2020-11-12] MEDS: MAGNESIUM OXIDE 400MG TAB (MAG-OX) PO SCH (09:54)
[2020-11-12] MEDS: SENOKOT S TAB PO SCH ×2 (09:54→20:05)
[2020-11-12] MEDS: FEBUXOSTAT 40 MG TABLET (ULORIC) PO SCH (09:54)
[2020-11-12] MEDS: CARVedilol 12.5 MG TAB PO SCH ×2 (09:55→20:06)
[2020-11-12] MEDS: WARFARIN SOD 2MG TAB PO SCH (17:20)
[2020-11-12] MEDS: AMITRIPTYLINE 50 MG TAB PO SCH (20:05)
[2020-11-12] MEDS: SODIUM CHLORIDE 0.9% INJ 10 ML SYR IV PRN (23:55)
[2020-11-13] MEDS: PIPERACILLIN/TAZOBACTAM SOD 3.375 GM in D5W MINI-BAG PLUS 50 ML IV SCH ×2 (03:50→10:03)
[2020-11-13 05:00] VITALS: BP 132/64
[2020-11-13] MEDS: SODIUM CHLORIDE 0.9% INJ 10 ML SYR IV SCH ×2 (05:40→17:40)
[2020-11-13 05:50] LABS: HEMATOCRIT 26.9 % (36.0-47.0); HEMOGLOBIN 8.6 g/dl (12.0-15.5); MEAN CORPUSCULAR HEMOGLOBIN 27.7 pg (27.0-33.0); MEAN CORPUSCULAR VOLUME 86.5 fl (80.0-96.0); PLATELET COUNT, AUTOMATED 364 10^3/uL (150-450); RED BLOOD COUNT 3.11 10^6/uL (4.00-5.40); WHITE BLOOD COUNT 10.8 10^3/uL (4.0-10.0)
[2020-11-13 06:37] LABS: CALCIUM LEVEL 8.4 MG/DL (8.8-10.2); CREATININE FOR GFR 1.16 MG/DL (0.55-1.30); GLOMERULAR FILTRATION RATE 49.6 (>45); MAGNESIUM LEVEL 1.7 MG/DL (1.8-2.4); POTASSIUM SERUM 2.8 MEQ/L (3.5-5.1)
[2020-11-13] MEDS ORDERED: POTASSIUM CHLORIDE 10MEQ SR TABLET PO ONE (07:15)
[2020-11-13] MEDS: HumaLOG INSULIN (NovoLOG) PER UNIT SC SCH ×4 (07:16→21:00)
[2020-11-13] MEDS: PANTOPRAZOLE 40MG TAB (PROTONIX) PO SCH (07:39)
[2020-11-13] MEDS: ASPIRIN 81MG ENTERIC TABLET PO SCH (07:39)
[2020-11-13] MEDS: ASCORBIC ACID 500 MG TAB PO SCH (07:39)
[2020-11-13] MEDS: ATORVASTATIN 20 MG TAB PO SCH (07:40)
[2020-11-13] MEDS: FEBUXOSTAT 40 MG TABLET (ULORIC) PO SCH (07:40)
[2020-11-13] MEDS: BUMETANIDE 1 MG TAB PO SCH (07:40)
[2020-11-13] MEDS: CARVedilol 12.5 MG TAB PO SCH ×2 (07:41→21:16)
[2020-11-13] MEDS: KCL 10MEQ/100ML SWI (KRUN) 10 MEQ in IV 1 EA IV SCH ×2 (07:42→08:48)
[2020-11-13] MEDS: IBUPROFEN 400MG TAB PO PRN ×2 (07:47→21:16)
[2020-11-13] MEDS: SENOKOT S TAB PO SCH ×3 (07:53→21:15)
[2020-11-13] MEDS: METAMUCIL (PSYLLIUM) PACKET PO SCH (07:53)
[2020-11-13] MEDS ORDERED: MAG SULF 1GM/100ML (MAG RUN) 1 GM in IV 1 EA IV ONE (09:00)
--- NOTE | 2020-11-13 16:31 | IPN ---
PROGRESS NOTE DATE: 11/13/2020 SUBJECTIVE: Analisa had no complaints today. She wanted me to use an music assistant to have a discussion with her. We used my iPhone with Google translate. She denies any nausea, vomiting, diarrhea or abdominal pain. She was concerned about her right foot not healing. She has been afebrile on intravenous (IV) antibiotics for about 5-1/2 weeks with very slow improvement. LABORATORY DATA: White count 10.8, hemoglobin 8.6, hematocrit 26.9, platelets 364. Erythrocyte sedimentation rate (ESR) 128. Sodium 135, potassium 2.8, chloride 96, bicarbonate 30, BUN 19, creatinine 1.96, glucose 125, calcium 8.4, magnesium 1.7. C-reactive protein (CRP) 6.96. Initial cultures were positive for Morganella, Escherichia (E) coli and Enterococcus (E) faecalis with only the Enterococcus faecalis resistant to quinolones. PHYSICAL EXAMINATION: VITAL SIGNS: Temperature 99, pulse 60, respirations 16, blood pressure 132/64, oxygen saturation 98% on room air. HEART: Normal S1, S2. No murmurs appreciated. LUNGS: Clear. No wheezes, rales or rhonchi. ABDOMEN: Obese, soft, nontender. EXTREMITIES: No edema or rashes. MUSCULOSKELETAL EXAM: Right heel with a large ulceration measuring about 6 x 5 cm with some necrotic tissue around the wound and about 1 cm depth. There is mild purulence in the wound, but no odor and there is no surrounding cellulitis. IMPRESSION: 1. Acute osteomyelitis of the right calcaneus status post debridement with polymicrobial adolph on initial culture. The bone biopsy had Morganella, Escherichia (E) coli and Enterococcus (E) faecalis, but the skin abscess also had methicillin-resistant Staphylococcus aureus (MRSA). 2. Acute right middle cerebral artery (MCA) stroke with left arm weakness. Patient has markedly improved. She is being evaluated for jail placement. PLAN: Will obtain a repeat wound culture to see what is causing this delay in wound healing and persistent purulence. I will switch her antibiotics from IV Zosyn to oral Levaquin along with Linezolid to cover for methicillin-resistant Staphylococcus aureus (MRSA) and Enterococcus faecalis.
[2020-11-13] MEDS: WARFARIN SOD 2MG TAB PO SCH (17:37)
[2020-11-13] MEDS: LINEZOLID 600MG TABLET (ZYVOX) PO SCH (21:15)
[2020-11-14] MEDS: SODIUM CHLORIDE 0.9% INJ 10 ML SYR IV SCH ×2 (05:02→17:54)
[2020-11-14] MEDS: LevoFLOXacin 500 MG TABLET PO SCH (05:02)
[2020-11-14 05:24] LABS: HEMATOCRIT 26.8 % (36.0-47.0); HEMOGLOBIN 8.6 g/dl (12.0-15.5); MEAN CORPUSCULAR HEMOGLOBIN 27.7 pg (27.0-33.0); MEAN CORPUSCULAR HGB CONC 32.1 g/dl (32.0-36.5); MEAN CORPUSCULAR VOLUME 86.2 fl (80.0-96.0); PLATELET COUNT, AUTOMATED 363 10^3/uL (150-450); RED BLOOD COUNT 3.11 10^6/uL (4.00-5.40); WHITE BLOOD COUNT 10.6 10^3/uL (4.0-10.0)
[2020-11-14 06:00] VITALS: BP 127/64
[2020-11-14 06:20] LABS: CALCIUM LEVEL 8.3 MG/DL (8.8-10.2); CREATININE FOR GFR 1.51 MG/DL (0.55-1.30); GLOMERULAR FILTRATION RATE 36.6 (>45); MAGNESIUM LEVEL 1.9 MG/DL (1.8-2.4); POTASSIUM SERUM 3.6 MEQ/L (3.5-5.1)
[2020-11-14] MEDS: SENOKOT S TAB PO SCH ×2 (09:24→20:41)
[2020-11-14] MEDS: HumaLOG INSULIN (NovoLOG) PER UNIT SC SCH ×4 (09:24→20:31)
[2020-11-14] MEDS: PANTOPRAZOLE 40MG TAB (PROTONIX) PO SCH (09:25)
[2020-11-14] MEDS: BUMETANIDE 1 MG TAB PO SCH (09:25)
[2020-11-14] MEDS: ASCORBIC ACID 500 MG TAB PO SCH (09:25)
[2020-11-14] MEDS: ATORVASTATIN 20 MG TAB PO SCH (09:25)
[2020-11-14] MEDS: LINEZOLID 600MG TABLET (ZYVOX) PO SCH ×2 (09:25→20:42)
[2020-11-14] MEDS: CARVedilol 12.5 MG TAB PO SCH ×2 (09:25→20:43)
[2020-11-14] MEDS: ASPIRIN 81MG ENTERIC TABLET PO SCH (09:25)
[2020-11-14] MEDS: FEBUXOSTAT 40 MG TABLET (ULORIC) PO SCH (09:25)
[2020-11-14] MEDS: MAGNESIUM OXIDE 400MG TAB (MAG-OX) PO SCH (09:26)
[2020-11-14] MEDS: IBUPROFEN 400MG TAB PO PRN (09:33)
--- NOTE | 2020-11-14 12:46 | REP ---
INDICATION: new right facial numbness. COMPARISON: CT head without contrast, 10/22/2020. TECHNIQUE: Contiguous 5 mm thick axial projection images were obtained of the brain. 2D coronal reconstructions were performed. FINDINGS: There is in again noted an area of low density in the right lentiform nucleus, external capsule, head of the caudate nucleus and extending into the genu of the internal capsule. There is no evidence of hemorrhagic transformation IMPRESSION: Again noted is a subacute infarction in the distribution of the right lenticulostriate arteries. There are no complications evident. No significant change. <Electronically signed by Saturnino Quintero > 11/14/20 1245
[2020-11-14 12:48] LABS: CK-MB VALUE MASS < 1.0 NG/ML (<3.6); CPK CREATINE PHOSPHOKINASE 32 U/L (26-192); MB/CK RELATIVE INDEX 3.12 (< OR =4); TROPONIN I 0.07 NG/ML (< 0.10)
[2020-11-14] MEDS: WARFARIN SOD 2MG TAB PO SCH (17:53)
[2020-11-14] MEDS: ACETAMINOPHEN TAB 650MG DOSE (2X325MG) PO PRN (18:24)
[2020-11-14 19:04] LABS: CK-MB VALUE MASS < 1.0 NG/ML (<3.6); CPK CREATINE PHOSPHOKINASE 29 U/L (26-192); MB/CK RELATIVE INDEX 3.45 (< OR =4); TROPONIN I 0.07 NG/ML (< 0.10)
[2020-11-15] MEDS: SODIUM CHLORIDE 0.9% INJ 10 ML SYR IV SCH ×2 (05:29→17:52)
[2020-11-15] MEDS: LevoFLOXacin 500 MG TABLET PO SCH (05:29)
[2020-11-15 06:00] VITALS: BP 130/91
[2020-11-15] MEDS: HumaLOG INSULIN (NovoLOG) PER UNIT SC SCH ×4 (07:58→21:00)
[2020-11-15] MEDS: BUMETANIDE 1 MG TAB PO SCH (09:23)
[2020-11-15] MEDS: SENOKOT S TAB PO SCH ×2 (09:23→21:33)
[2020-11-15] MEDS: ASPIRIN 81MG ENTERIC TABLET PO SCH (09:23)
[2020-11-15] MEDS: FEBUXOSTAT 40 MG TABLET (ULORIC) PO SCH (09:23)
[2020-11-15] MEDS: CARVedilol 12.5 MG TAB PO SCH ×2 (09:24→21:35)
[2020-11-15] MEDS: ASCORBIC ACID 500 MG TAB PO SCH (09:24)
[2020-11-15] MEDS: ATORVASTATIN 20 MG TAB PO SCH (09:24)
[2020-11-15] MEDS: LINEZOLID 600MG TABLET (ZYVOX) PO SCH ×2 (09:24→21:33)
[2020-11-15] MEDS: PANTOPRAZOLE 40MG TAB (PROTONIX) PO SCH (09:24)
[2020-11-15] MEDS: WARFARIN SOD 2MG TAB PO SCH (17:52)
[2020-11-15] MEDS: NYSTATIN 100,000 UNITS/GM TOPICAL PWD 15 GM TOP SCH (18:32)
[2020-11-16] MEDS: SODIUM CHLORIDE 0.9% INJ 10 ML SYR IV SCH ×2 (05:03→17:16)
[2020-11-16] MEDS: LevoFLOXacin 500 MG TABLET PO SCH (05:04)
[2020-11-16 05:27] LABS: HEMATOCRIT 28.3 % (36.0-47.0); MEAN CORPUSCULAR HEMOGLOBIN 26.9 pg (27.0-33.0); MEAN CORPUSCULAR HGB CONC 31.8 g/dl (32.0-36.5); MEAN CORPUSCULAR VOLUME 84.7 fl (80.0-96.0); PLATELET COUNT, AUTOMATED 398 10^3/uL (150-450); RED BLOOD COUNT 3.34 10^6/uL (4.00-5.40); WHITE BLOOD COUNT 11.4 10^3/uL (4.0-10.0)
[2020-11-16 05:45] LABS: CALCIUM LEVEL 8.4 MG/DL (8.8-10.2); CREATININE FOR GFR 1.21 MG/DL (0.55-1.30); GLOMERULAR FILTRATION RATE 47.2 (>45); POTASSIUM SERUM 3.8 MEQ/L (3.5-5.1)
[2020-11-16 06:00] VITALS: BP 148/73
[2020-11-16] MEDS: HumaLOG INSULIN (NovoLOG) PER UNIT SC SCH ×4 (08:38→20:31)
[2020-11-16] MEDS: ASPIRIN 81MG ENTERIC TABLET PO SCH (08:39)
[2020-11-16] MEDS: FEBUXOSTAT 40 MG TABLET (ULORIC) PO SCH (08:39)
[2020-11-16] MEDS: MAGNESIUM OXIDE 400MG TAB (MAG-OX) PO SCH (08:39)
[2020-11-16] MEDS: ATORVASTATIN 20 MG TAB PO SCH (08:39)
[2020-11-16] MEDS: BUMETANIDE 1 MG TAB PO SCH (08:39)
[2020-11-16] MEDS: SENOKOT S TAB PO SCH ×2 (08:39→20:55)
[2020-11-16] MEDS: IBUPROFEN 400MG TAB PO PRN (08:40)
[2020-11-16] MEDS: PANTOPRAZOLE 40MG TAB (PROTONIX) PO SCH (08:40)
[2020-11-16] MEDS: ASCORBIC ACID 500 MG TAB PO SCH (08:40)
[2020-11-16] MEDS: CARVedilol 12.5 MG TAB PO SCH ×2 (08:41→20:57)
[2020-11-16] MEDS: SODIUM CHLORIDE 0.9% INJ 10 ML SYR IV PRN (08:42)
[2020-11-16] MEDS: LINEZOLID 600MG TABLET (ZYVOX) PO SCH ×2 (08:42→20:55)
[2020-11-16] MEDS: NYSTATIN 100,000 UNITS/GM TOPICAL PWD 15 GM TOP SCH ×2 (08:43→20:57)
[2020-11-16 09:36] LABS: INR 3.61; PROTHROMBIN TIME 36.2 SECONDS (12.7-14.5)
--- NOTE | 2020-11-16 13:35 | REP ---
INDICATION: right shoulder pain. COMPARISON: None. TECHNIQUE: Three views of the right shoulder were obtained. FINDINGS: There is no evidence of fracture or dislocation. There is moderate arthritis of the glenohumeral joint. There is mild arthritis of the acromioclavicular joint. Proximal end of a right PICC line is noted. IMPRESSION: No evidence of fracture or dislocation. There is arthritis of the acromioclavicular and glenohumeral joints. <Electronically signed by Saturnino Quintero > 11/16/20 [id number]
[2020-11-17] MEDS: SODIUM CHLORIDE 0.9% INJ 10 ML SYR IV SCH ×2 (05:05→18:56)
[2020-11-17] MEDS: LevoFLOXacin 500 MG TABLET PO SCH (05:05)
[2020-11-17 05:25] LABS: HEMATOCRIT 27.8 % (36.0-47.0); MEAN CORPUSCULAR HEMOGLOBIN 27.6 pg (27.0-33.0); MEAN CORPUSCULAR HGB CONC 32.4 g/dl (32.0-36.5); MEAN CORPUSCULAR VOLUME 85.3 fl (80.0-96.0); PLATELET COUNT, AUTOMATED 385 10^3/uL (150-450); RED BLOOD COUNT 3.26 10^6/uL (4.00-5.40); WHITE BLOOD COUNT 9.5 10^3/uL (4.0-10.0)
[2020-11-17 05:37] LABS: INR 3.53; PROTHROMBIN TIME 35.6 SECONDS (12.7-14.5)
[2020-11-17 05:41] LABS: CALCIUM LEVEL 8.3 MG/DL (8.8-10.2); CREATININE FOR GFR 0.99 MG/DL (0.55-1.30); GLOMERULAR FILTRATION RATE 59.6 (>45); MAGNESIUM LEVEL 1.8 MG/DL (1.8-2.4); POTASSIUM SERUM 3.8 MEQ/L (3.5-5.1)
[2020-11-17 06:00] VITALS: BP 122/63
[2020-11-17] MEDS: HumaLOG INSULIN (NovoLOG) PER UNIT SC SCH ×4 (08:34→21:00)
[2020-11-17] MEDS: LINEZOLID 600MG TABLET (ZYVOX) PO SCH (08:35)
[2020-11-17] MEDS: PANTOPRAZOLE 40MG TAB (PROTONIX) PO SCH (08:35)
[2020-11-17] MEDS: SENOKOT S TAB PO SCH ×3 (08:35→22:13)
[2020-11-17] MEDS: BUMETANIDE 1 MG TAB PO SCH (08:35)
[2020-11-17] MEDS: FEBUXOSTAT 40 MG TABLET (ULORIC) PO SCH (08:35)
[2020-11-17] MEDS: ASCORBIC ACID 500 MG TAB PO SCH (08:35)
[2020-11-17] MEDS: ASPIRIN 81MG ENTERIC TABLET PO SCH (08:35)
[2020-11-17] MEDS: ATORVASTATIN 20 MG TAB PO SCH (08:36)
[2020-11-17] MEDS: NYSTATIN 100,000 UNITS/GM TOPICAL PWD 15 GM TOP SCH ×2 (08:36→22:14)
[2020-11-17] MEDS: CARVedilol 12.5 MG TAB PO SCH ×2 (08:36→22:13)
--- NOTE | 2020-11-17 09:57 | IPNPDOC ---
Text Note Date of Service The patient was seen on 11/17/20. NOTE Subjective: Patient is a 65-year-old female with a PMHx of HTN, CAD, Chronic A. fib, CHF, PVD, DLP, DM2, Gout, Vertigo, GERD who presented to the ER with complaints of infected R heel wound. Patient was admitted to the hospitalist service for further evaluation and treatment. Podiatry and ID were called on consultation. Patient was seen and examined at the bedside. Patient was laying in bed, appears to be comfortable, not in any acute distress. Report some right shoulder pain. Denies any chest pain, shortness breath, cough, nausea, vomiting, abdominal pain or diarrhea. Patient denies any pain of her feet. Objective: Vitals (See below) General: Sitting up in bed, appears to be comfortable without any acute distress, is oriented to person, place and time HEENT: Normocephalic and atraumatic CVS: +S1S2 Lungs: Air entry appears to be fair bilaterally without any evidence of crackles, wheezing or rhonchi Abdomen: Abdomen remains soft without any distention or tenderness Extremities: Lower extremities are without any edema, R foot with dressing in place; R heel ulcer is with serosanguineous drainage Imaging: Extremity CT 10/05: 1. There is a large soft tissue ulceration defect seen in the medial heel pad of the right foot, best seen on image 108 of series 303. 2. Medial to the soft tissue defect there is a fluid and gas collection, likely an abscess, measuring 2.8 x 2.1 cm transversely on image 61 of series 302 and measuring 1.6 cm in craniocaudal dimension on image 104 of series 303. 3. The bony cortical outline and marrow defect underlying the soft tissue defect are suggestive of acute osteomyelitis on image 50 of series 302. 4. No acute fractures. 5. Chronic calcific enthesopathy is seen in the proximal Achilles on image 6 of series 302. Foot XR 10/07: Postsurgical changes at the posterior aspect of calcaneal process. No immediate complication is evident. Head CT 10/20: Mild generalized volume loss. No acute intracranial abnormality. CTA head 10/20: 1. Occluded right middle cerebral artery proximally. 2. Corresponding hypodensity in the right middle cerebral artery territory morales ggestive of acute infarct. No acute hemorrhage. CXR 11/03: Area of increased density in the right apex should be evaluated further with PA and lateral views. Slight cardiac enlargement. No evidence of failure or pneumonia. PICC line in place with tip in superior vena cava. Carotid Vascular US 10/20: According to the SRU criteria there is less than 50% stenosis of the internal carotid artery bilaterally. This is secondary to both calcified and noncalcified plaque formation CT Head 10/20: 1. There has been no change since a study done earlier in the day. No interval hemorrhage. 2. Minimal chronic ischemic white matter change and atrophy with ill-defined areas of slightly decreased attenuation in the right cerebral hemisphere centrally and subcortical parietal lobe which are unchanged. Esophageal XR 10/21: The patient is able to be given all consistencies performed today. However, there is an increase risk with ingestion of all food because of delayed triggering and pooling in the vallecula. CT head 10/21: New area of abnormal decreased attenuation as described above consistent with an acute nonhemorrhagic infarction. MRI examination of the brain is recommended. CT head 10/22: Who ventricular nucleus and external capsule nonhemorrhagic infarct showing slight increase when compared with yesterday's examination. No evidence of hemorrhage or mass effect. CXR 10/22: Stable cardiomegaly. Cardiac electrodes remain in place Prominent lung markings -- perhaps [id number] vascular congestion. Diffuse interstitial pneumonitis cannot be excluded. Clinical correlation is needed. Follow-up is suggested, as symptoms warrant. CXR 10/25: 1. There is moderate congestive change with moderate pulmonary edema. 2. Mild left basilar atelectasis or infiltrate. Assessment and plan: Infected RLE heel ulcer with acute osteomyelitis of the calcaneum - Wound appears clean without any surrounding necrosis; serosanguineous drainage noted - s/p Leukocytosis - Wound cultures 10/05: Escherichia coli, Morganella morganii, Enterococcus faecalis, MRSA - s/p Posterior resection of the right calcaneum on 10/07/[address] Bone - Podiatry and infectious disease on consultation - Has completed Zosyn (End date 11/16/2020) - c/w Linezolid and Levaquin Acute right MCA stroke with left arm weakness - Patient had code stroke called on 8/10 AM - Imaging noted above; Unable to get MRI 2/2 PM - c/w ASA 81 and Warfarin - c/w Atorvastatin 80 - PFS looking into rehab Dysphagia - c/w Speech therapy recommendations Troponin elevation - likely 2/2 demand ischemia / NSTEMI (Type II) - No chest pain, SOB or palpitations - Troponin has remained stable - c/w Warfarin, Carvedilol, ASA 81 s/p Gram-negative bacteremia - Blood cultures 10/05: (1 of 2) Morganella Morganii - Blood cultures 10/06: Negative at 5 days - Completed Zosyn Anemia - Hg stable IDDM2 - c/w ISS and Levemir HTN - BP well controlled - c/w Carvedilol, Bumetanide, Lisinopril, Amlodipine Chronic Atrial fibrillation - c/w rate control with Carvedilol - INR therapeutic - c/w full anticoagulation with Coumadin DLP - c/w Gemfibrozil Gout - c/w Febuxostat CKD3 - Cr at baseline Neuropathy - Amitriptyline on hold - Will start Gabapentin GI prophylaxis - c/w Protonix DVT prophylaxis - c/w Warfarin Disposition: - Will need rehabilitation moving forward - c/w ALC status VS,Radha, I+O VS, Darine, I+O Laboratory Tests 11/17/20 05:02 Vital Signs Date Time Temp Pulse Resp B/P (MAP) Pulse Ox O2 Delivery O2 Flow Rate FiO2 11/17/20 08:35 62 133/67 11/17/20 06:00 97.2 18 98 11/16/20 06:00 Room Air I&O- Last 24 Hours up to 6 AM 11/17/20 06:00 Intake Total 1340 ml Output Total 1450 ml Balance -110 ml EMILY SOTO MD Nov 17, 2020 09:57
[2020-11-17] MEDS: MIRALAX *UNIT DOSE* 17GM PACKET PO PRN (10:07)
[2020-11-17] MEDS: MOM 30ML SUSPENSION UDC PO PRN (10:07)
[2020-11-17] MEDS: ACETAMINOPHEN TAB 650MG DOSE (2X325MG) PO PRN (10:08)
[2020-11-17] MEDS: GABAPENTIN 100 MG CAP PO SCH ×2 (13:02→22:12)
--- NOTE | 2020-11-17 18:39 | IPN ---
PROGRESS NOTE DATE: 11/17/2020 TIME: Approximately 6 p.m. Patient seen at bedside for evaluation of an ulcer on the posterior aspect of her right heel. Patient has some new vascular changes of her toes with some blue discoloration, and bruising on the lateral side of the right lateral malleolar region has extended. The ulceration on the posterior heel has no additional necrotic tissue with minimal granulation tissue but no worsening of her ulcer. The evaluation of the ulcer reveals the ulcer to be 4.5 cm x 5 cm and approximately 1 cm in depth. No surrounding necrotic tissue or odor is noted. Wound culture was performed, and results are present today, revealing Pseudomonas aeruginosa. Dr. Arias is covering her antibiotic coverage. ASSESSMENT: Stage IV ulceration, right foot, with worsening vascular status to the right foot. PLAN: We discussed with the patient having her vascular status re-evaluated by interventional radiology. Continue to offload the right foot with an offloading boot pillow. Continue with present wound care consisting of Hydrogel and an Optifoam dressing. Patient's questions were answered.
[2020-11-17 21:10] LABS: C REACTIVE PROTEIN QUANTITATIV 7.08 MG/DL (0.00-0.30)
[2020-11-17] MEDS: AMITRIPTYLINE 50 MG TAB PO SCH (22:13)
[2020-11-18] MEDS: LevoFLOXacin 500 MG TABLET PO SCH (05:38)
[2020-11-18] MEDS: SODIUM CHLORIDE 0.9% INJ 10 ML SYR IV SCH ×2 (05:38→16:52)
[2020-11-18 05:58] LABS: HEMATOCRIT 27.5 % (36.0-47.0); HEMOGLOBIN 8.9 g/dl (12.0-15.5); MEAN CORPUSCULAR HEMOGLOBIN 27.5 pg (27.0-33.0); MEAN CORPUSCULAR HGB CONC 32.4 g/dl (32.0-36.5); MEAN CORPUSCULAR VOLUME 84.9 fl (80.0-96.0); PLATELET COUNT, AUTOMATED 376 10^3/uL (150-450); RED BLOOD COUNT 3.24 10^6/uL (4.00-5.40); WHITE BLOOD COUNT 10.4 10^3/uL (4.0-10.0)
[2020-11-18 06:00] VITALS: BP 138/58
[2020-11-18 06:27] LABS: BLOOD UREA NITROGEN 18 MG/DL (7-18); CALCIUM LEVEL 8.7 MG/DL (8.8-10.2); CARBON DIOXIDE LEVEL 29 MEQ/L (21-32); CHLORIDE LEVEL 97 MEQ/L (98-107); CREATININE FOR GFR 0.85 MG/DL (0.55-1.30); GLOMERULAR FILTRATION RATE > 60.0 (>45); GLUCOSE, FASTING 148 MG/DL (70-100); MAGNESIUM LEVEL 1.8 MG/DL (1.8-2.4); SODIUM LEVEL 132 MEQ/L (136-145)
--- NOTE | 2020-11-18 08:19 | IPN ---
PROGRESS NOTE DATE: 11/17/2020 SUBJECTIVE: Analisa was seen this afternoon with the help of the pulp maker at 5 p.m. The nurse is also at the bedside. There was a concern of new discoloration of her foot with vascular changes and purplish discoloration of the toes with cold sensation to touch. The patient has bilateral neuropathy and has no feeling in her feet. The patient was also seen by Dr. Bone later that night. The ulceration on the posterior heel has some necrotic tissue around the wound with minimal granulation tissue. The ulcer measures about 4.5 x 5 cm with 1.5 cm depth. There is some purulent discharge around the wound. The wound culture was positive for pseudomonas aeruginosa. The patient has been on levofloxacin for the past three days and linezolid which will be discontinued today. She has no nausea, vomiting or diarrhea. No abdominal pain, fever or chills. She is worried about the wound healing. OBJECTIVE: VITAL SIGNS: Temperature is 97.2, pulse is 60, respirations are 18, blood pressure is 122/63, O2 sat is 98% on room air. HEART: Normal S1 and S2. No murmurs are appreciated. LUNGS: No rales or rhonchi. ABDOMEN: Obese, soft, nontender. LABORATORY DATA: White count 9.5, hemoglobin is 9, hematocrit 27.8, platelets are 385,000. Sodium 133, potassium is 3.8, chloride is 98, bicarbonate 29, BUN 22, creatinine 0.99. Glucose is 163. Calcium is 8.3, magnesium is 1.8. Last CRP was 6.96. IMPRESSION: 1. Acute osteomyelitis of the right calcaneus with blood culture positive for Morganella morganii, E. coli and E. faecalis, all susceptible to levofloxacin on 10/07. Repeat culture done on 11/14 had Pseudomonas aeruginosa also sensitive to levofloxacin and to Zosyn. 2. Peripheral vascular disease status post angioplasty done by Dr. Maya on 10/12 with new discoloration and ulceration of the right leg with a new ulcer laterally along the lateral malleolus. The patient had underwent right leg angiogram with right posterior tibial artery angioplasty and right superficial femoral artery angioplasty with new vascular changes. I discussed the case with Dr. Bone who will discuss the case with Vascular Surgery or Dr. Maya. Patient thinks she needs revascularization and that is the reason for her poor wound healing. PLAN: Re-consult Vascular Surgery or Interventional Radiology, discontinue p.o. Linezolid. There is no need for MRSA coverage, continue with levofloxacin 500 mg daily for at least another 2-4 weeks. The case was discussed with Dr. Dudley, the Hospitalist.
[2020-11-18] MEDS: SODIUM CHLORIDE 0.9% INJ 10 ML SYR IV PRN (08:55)
[2020-11-18] MEDS: ATORVASTATIN 20 MG TAB PO SCH (08:56)
[2020-11-18] MEDS: SENOKOT S TAB PO SCH ×2 (08:56→21:14)
[2020-11-18] MEDS: MAGNESIUM OXIDE 400MG TAB (MAG-OX) PO SCH (08:57)
[2020-11-18] MEDS: ASPIRIN 81MG ENTERIC TABLET PO SCH (08:57)
[2020-11-18] MEDS: BUMETANIDE 1 MG TAB PO SCH (08:57)
[2020-11-18] MEDS: ASCORBIC ACID 500 MG TAB PO SCH (08:57)
[2020-11-18] MEDS: CARVedilol 12.5 MG TAB PO SCH ×2 (08:58→21:14)
[2020-11-18] MEDS: GABAPENTIN 100 MG CAP PO SCH (08:58)
[2020-11-18] MEDS: ACETAMINOPHEN TAB 650MG DOSE (2X325MG) PO PRN (08:58)
[2020-11-18] MEDS: PANTOPRAZOLE 40MG TAB (PROTONIX) PO SCH (08:58)
[2020-11-18] MEDS: FEBUXOSTAT 40 MG TABLET (ULORIC) PO SCH (08:58)
--- NOTE | 2020-11-18 08:58 | IPNPDOC ---
Text Note Date of Service The patient was seen on 11/18/[address] Bone's (DPM) request NOTE Significant PAD, with gangrene and osteomyelitis right heel. Patient not ambulant since the current hospitalisation and requires 2 persons to assist form the bed after her acute CVA on 10/20/20 Afib - cold right foot. Had R RLE endovasc intervention by IR on 10/13/20. Will D/W IR- Dr Maya Dictation job ID: # [id number] MIRIAM,Radha, I+O VSRadha, I+O Laboratory Tests 11/18/20 05:35 Vital Signs Date Time Temp Pulse Resp B/P (MAP) Pulse Ox O2 Delivery O2 Flow Rate FiO2 11/18/20 06:00 98.4 60 18 138/58 (84) 97 Room Air I&O- Last 24 Hours up to 6 AM 11/18/20 06:00 Intake Total 760 ml Output Total 575 ml Balance 185 ml Kiah Venegas MD Nov 18, 2020 08:58
[2020-11-18] MEDS: HumaLOG INSULIN (NovoLOG) PER UNIT SC SCH ×4 (08:59→21:00)
[2020-11-18] MEDS: NYSTATIN 100,000 UNITS/GM TOPICAL PWD 15 GM TOP SCH ×2 (08:59→21:15)
[2020-11-18 09:22] LABS: INR 3.2; PROTHROMBIN TIME 33.1 SECONDS (12.7-14.5)
[2020-11-18] MEDS: IBUPROFEN 400MG TAB PO PRN (12:45)
--- NOTE | 2020-11-18 15:25 | REP ---
INDICATION: Cold right foot- no doppler signals in foot. H/O balloon an. COMPARISON: 09/15/2020. TECHNIQUE: Real time rea scale and Duplex Doppler evaluation of the right lower extremity arterial vasculature using linear high frequency transducer. FINDINGS: Triphasic waveforms are seen in the right common femoral artery and profunda. Monophasic waveforms are seen distal to that. There is occlusion of the distal right superficial femoral artery and proximal popliteal artery. Collateral vessels from the mid SFA reconstitute the more distal popliteal artery. There is low resistance flow distally in the calf arteries. The tibioperoneal trunk and proximal posterior tibial artery could not be visualized. Flow is seen throughout the anterior tibial artery and is noted in the distal posterior tibial artery at the ankle, but there is very slow flow in these arteries at the level of the ankle. PSV(cm/sec) Common femoral artery: 110 cm/s Profunda femoris artery: 129 cm/s Proximal superficial femoral artery: 39 cm/s Mid superficial femoral artery: 40 cm/s Distal superficial femoral artery: 18 cm/s Popliteal artery: 36 cm/s Proximal JAYESH: 20 cm/s Tibioperoneal trunk: Not seen Proximal CEMETERY WARDEN: Not seen Distal CEMETERY WARDEN: 31 cm/s Distal JAYESH: 9 cm/s IMPRESSION: Occlusion distal right superficial femoral artery and proximal popliteal artery with reconstitution of the distal popliteal artery. Very slow flow in the distal calf arteries at the ankle. Critical Findings: Occlusion right superficial femoral artery and proximal popliteal artery. The critical information above was relayed directly by me by telephone to Dallas Dudley on 11/18/2020 at 3:20 pm with readback verification. <Electronically signed by Micah Rea > 11/18/20 1526
--- NOTE | 2020-11-18 15:48 | IPNPDOC ---
Text Note Date of Service 11/18/20 NOTE RLE arterial ultrasound results reviewed: Occlusion of the right distal superficial femoral artery and proximal popliteal artery, with reconstitution of the distal popliteal artery. Significant tibial disease. Findings discussed with Dr. Jennifer Maya. Impression: Possibly acute on chronic right lower extremity arterial occlusion, with preserved flow to the level of the ankle, and significantly ischemic left foot, which is currently not salvageable. The patient is not a candidate for the thrombolysis-given her INR of 3.53 and her recent right hemispheric stroke. She has also significantly deconditioned physically, and has not been ambulant, and unlikely she will ever be ambulant. Also given the ultrasound findings, suggest right above-knee amputation, as the patient and her family are willing to undergo the procedure. Otherwise suggest wound care, and supportive care, for the right heel wound/gangrene Discussed with hospitalist Radha Cruz, I+O VSRadha, I+O Laboratory Tests 11/18/20 05:35 Vital Signs Date Time Temp Pulse Resp B/P (MAP) Pulse Ox O2 Delivery O2 Flow Rate FiO2 11/18/20 08:58 62 126/66 11/18/20 06:00 98.4 18 97 Room Air I&O- Last 24 Hours up to 6 AM 11/18/20 06:00 Intake Total 760 ml Output Total 575 ml Balance 185 ml Kiah Venegas MD Nov 18, 2020 15:48
[2020-11-18] MEDS: AMITRIPTYLINE 50 MG TAB PO SCH (21:14)
[2020-11-19] MEDS: SODIUM CHLORIDE 0.9% INJ 10 ML SYR IV SCH ×2 (05:07→16:49)
[2020-11-19] MEDS: LevoFLOXacin 500 MG TABLET PO SCH (05:07)
[2020-11-19 05:28] LABS: BASO # 0.1 10^3/uL (0.0-0.2); BASO % 0.7 % (0.0-1.0); EOS # 0.3 10^3/uL (0.0-0.5); EOS % 2.7 % (0.0-3.0); HEMATOCRIT 27.6 % (36.0-47.0); HEMOGLOBIN 8.8 g/dl (12.0-15.5); LYMPH # 1.5 10^3/uL (1.5-5.0); LYMPH % 16.9 % (24.0-44.0); MEAN CORPUSCULAR HEMOGLOBIN 27.6 pg (27.0-33.0); MEAN CORPUSCULAR HGB CONC 31.9 g/dl (32.0-36.5); MEAN CORPUSCULAR VOLUME 86.5 fl (80.0-96.0); MONO # 0.7 10^3/uL (0.0-0.8); MONO % 7.8 % (2.0-8.0); NEUTROPHILS # 6.5 10^3/uL (1.5-8.5); NEUTROPHILS % 71.1 % (36.0-66.0); PLATELET COUNT, AUTOMATED 334 10^3/uL (150-450); RED BLOOD COUNT 3.19 10^6/uL (4.00-5.40); WHITE BLOOD COUNT 9.1 10^3/uL (4.0-10.0)
[2020-11-19 05:43] LABS: INR 2.7
[2020-11-19 05:47] LABS: BLOOD UREA NITROGEN 25 MG/DL (7-18); CALCIUM LEVEL 8.2 MG/DL (8.8-10.2); CARBON DIOXIDE LEVEL 31 MEQ/L (21-32); CHLORIDE LEVEL 99 MEQ/L (98-107); CREATININE FOR GFR 0.87 MG/DL (0.55-1.30); GLOMERULAR FILTRATION RATE > 60.0 (>45); GLUCOSE, FASTING 120 MG/DL (70-100); MAGNESIUM LEVEL 1.8 MG/DL (1.8-2.4); SODIUM LEVEL 134 MEQ/L (136-145)
[2020-11-19 06:00] VITALS: BP 131/68
[2020-11-19] MEDS: ASCORBIC ACID 500 MG TAB PO SCH (08:12)
[2020-11-19] MEDS: ATORVASTATIN 20 MG TAB PO SCH (08:13)
[2020-11-19] MEDS: SENOKOT S TAB PO SCH ×2 (08:13→22:31)
[2020-11-19] MEDS: FEBUXOSTAT 40 MG TABLET (ULORIC) PO SCH (08:13)
[2020-11-19] MEDS: PANTOPRAZOLE 40MG TAB (PROTONIX) PO SCH (08:13)
[2020-11-19] MEDS: ASPIRIN 81MG ENTERIC TABLET PO SCH (08:13)
[2020-11-19] MEDS: CARVedilol 12.5 MG TAB PO SCH ×2 (08:14→22:31)
[2020-11-19] MEDS: BUMETANIDE 1 MG TAB PO SCH (08:14)
[2020-11-19] MEDS: HumaLOG INSULIN (NovoLOG) PER UNIT SC SCH ×4 (08:15→21:00)
[2020-11-19] MEDS: NYSTATIN 100,000 UNITS/GM TOPICAL PWD 15 GM TOP SCH ×2 (08:22→22:32)
--- NOTE | 2020-11-19 08:22 | CR ---
CONSULTATION DATE: 11/18/2020 CONSULTATION REQUESTED BY: Dr. Bone, construction coordinator CONSULTING PHYSICIAN: JOSÉ LUIS CLEMONS MD REASON FOR CONSULTATION: Nonhealing right heel wound in a patient with peripheral arterial disease and history of endovascular intervention. This is my initial contact with the patient for the current hospitalization. HISTORY OF PRESENT ILLNESS: The patient is a 65-year-old [place]an-speaking lady of [place] origin who was hospitalized on 10/07/2020 with abscess of the right foot and osteomyelitis of the calcaneum, for which she underwent debridement and partial calcaneal resection by Dr. Bone and application of wound vacuum-assisted closure (VAC). She was managed with intravenous antibiotics, initially with Zosyn and Zyvox, which are currently switched to levofloxacin. The patient was evaluated for peripheral arterial disease (PAD) by Dr. Andria Maya, interventional radiologist, and she underwent right lower extremity arteriogram through left femoral access on 10/13/2020 along with right distal superficial femoral artery and right posterior tibial artery balloon angioplasty. Discussed with Dr. Maya, and angiographic images were reviewed. The patient predominantly has distal small-vessel disease with no significant runoff beyond the ankle. She otherwise had a good result after angioplasty of the posterior tibial artery with 3-vessel runoff to the level of the ankle. The dorsalis pedis and the posterior tibial artery become small in the foot and, no definitive plantar arch was visualized. The patient lived with her son Andre, prior to the current hospitalization and was minimally ambulant with a walker; however, she has not been ambulant since the current hospitalization. During the hospitalization, she also was noted to have acute left-sided hemiparesis on 10/20/2020, and a stroke workup was performed, which revealed occluded right middle cerebral artery proximally with hypodensity in the right middle cerebral artery (MCA) territory suggestive of acute infarct on CT of the carotids. The CT angiogram of the head, however, did not reveal any acute changes. The patient has been absolutely bed-bound since then and is 2-person assist to even get her out of the bed. The current history has been obtained through the simulation tech on a pad. PAST MEDICAL HISTORY: Significant for: 1. Type 2 diabetes, on insulin with significant peripheral neuropathy and retinopathy. She was noted to have acute kidney injury on hospitalization; however, her creatinine is currently normal. 2. Hypertension. 3. Dyslipidemia. 4. Coronary artery disease. 5. Atrial fibrillation, on chronic anticoagulation. 6. Systolic congestive heart failure. 7. Gastroesophageal reflux disease. 8. Peripheral arterial disease with abscess and osteomyelitis of the right heel. 9. Gout. PAST SURGICAL HISTORY: Significant for: 1. Hysterectomy. 2. Cholecystectomy. 3. Automatic implantable cardioverter defibrillator (AICD). 4. Cystoscopy. 5. Right lower extremity arteriogram with balloon angioplasty of the right distal superficial femoral artery and right posterior tibial artery. 6 Right heel debridement, and partial calcaneal resection by Dr. Bone FAMILY HISTORY: Noncontributory. SOCIAL HISTORY: She lives with her son Ander. No history of alcohol, smoking, or intravenous (IV) drug abuse. ALLERGIES: TRIMETHOPRIM. CURRENT MEDICATIONS: Reviewed. These include: - insulin sliding scale - Coreg 12.5 mg twice a day - Bumex 1 mg daily - lisinopril 10 mg daily - Norvasc 2.5 mg daily - Lipitor 8 mg daily - levofloxacin 500 mg daily - gabapentin 100 mg twice a day - warfarin, to maintain INRs of 2-3. Her INR today is elevated(3.53), and hence the Warfarin has been held. Her as-needed medications include: Milk of magnesia, Tylenol for pain, Her other medications include: - amitriptyline 50 mg every night - vitamin C 500 mg daily - Uloric 40 mg daily - Protonix 40 mg daily - aspirin 81 mg daily Microbiology of the right foot wound on 11/14/2020 revealed pseudomonas. The antibiotics are being managed by infectious disease services. REVIEW OF SYSTEMS: Including the 12 major systems, apart from the above-mentioned history is otherwise negative to the best of my knowledge. PHYSICAL EXAMINATION: The patient is an obese lady who looks older than stated age. She is laying comfortably in bed. She is not in acute distress. She is propped up in bed and having her breakfast. She is awake, alert, and appropriately responsive and is communicating through the burlapper. She complains of generalized deconditioning, however, denies any focal weakness at the current time. Vital signs today revealed a temperature of 98.4 degrees Fahrenheit, heart rate 60 per minute, regular, respiratory rate of 18, blood pressure of 126/66 mmHg. She is saturating 97% on room air. Bilateral lower extremity evaluation revealed bilateral lower extremity swelling with pitting pedal edema. Her left dorsalis pedis (DP) is present and palpable despite edema. The right leg is warm to the level of the ankle. The right foot is cold. She has significant diabetic neuropathy and does not have significant sensation or feeling to touch on the feet bilaterally. The right forefoot is cooler with significant pallor and mottling of the toes. There is markedly decreased capillary refill. There is an open wound on the right heel, measuring about 5 x 6 cm in size with underlying pink granulation tissue and probing to the bone. The adjacent tissue is intermittently gangrenous up to the posterior aspect of the ankle. I could not obtain any Doppler signals in the right foot or in the distal ankle. The patient did have sensation to the level of the ankle. Relevant labs and imaging have been reviewed. Her INR today is 3.53, creatinine is 0.85, down from 1.21 on 11/16/2020. Elevated CRP. Imaging as mentioned above. IMPRESSION AND PLAN: The patient is a 65-year-old diabetic lady with peripheral arterial disease, osteomyelitis of the right calcaneum, status post endovascular intervention to the right posterior tibial artery and superficial femoral artery along with calcaneal debridement. She, however, has very poor runoff, even on her initial imaging, beyond the ankle, suggestive of significant small-vessel disease. The tissue surrounding the calcanectomy site and wound is intermittent gangrenous, suggestive of patchy areas of ischemia. Her right forefoot is significantly ischemic. Given her small-vessel disease, she does not seem to have any further revascularization options. I discussed with Dr. Andria Maya, interventional radiology. The angiographic results and images were reviewed -with suggested good flow to the level of the ankle. Given the above situation it is unlikely that she would heal any further debridement and would be a candidate for a major lower extremity amputation. She will require an above-knee amputation if she cannot ambulate in the near future. If she refuses amputation and is not septic due to the wound, she can be discharged with wound care and antibiotics as per infectious disease services. Given her medical comorbidities and nonambulant state and significant deconditioning, it is unlikely that she will rehabilitate enough to ambulate on the left leg, and hence if she requires a major amputation she would be considered for above-knee amputation. Discussed plan of care with Dr. Dallas Dudley, hospitalist. DEVENDRA
--- NOTE | 2020-11-19 16:34 | IPNPDOC ---
Text Note Date of Service The patient was seen on 11/19/20 at 4pm. NOTE Patient comfortable, with her daughter Prerna Powell ( dental captain assistant)at the bedside. I had a long discussion, with the patient's daughter Prerna who is Maltese speaking and a dental captain assistant, regarding the patient's peripheral arterial disease, the recent development of acute on chronic right lower extremity arterial occlusion, and nonsalvageability of the lower extremity. Explained to her that given the poor runoff in the foot, the chances of successful revas cularization to the right foot, are minimal, with increased periprocedural risk, due to her medical comorbidities including history of her recent right hemispheric stroke on 10/20/2020. Options for management of the right heel gangrene and nonhealing wound, and right cold ischemic foot were discussed-including nonoperative treatment and aggressive wound care, with risk of recurrent infection and sepsis requiring urgent/emergent amputation versus elective major amputation of the right lower extremity. As the patient is bedbound, since her stroke, and has a very low rehabilitation potential, and also as her right distal superficial femoral artery and popliteal artery are occluded, suggest right above-knee amputation, once the INR improves to a normal level. Till then she will be bridged with heparin/Lovenox. The patient's daughter understands, and agrees to the plan of care, although she would also like to talk to her brother-the patient's son with whom the patient lives. The procedure is tentatively scheduled for Monday that is 11/23/2020. All her questions and concerns were addressed VS,Radha, I+O VS, Darine, I+O Laboratory Tests 11/19/20 05:10 Vital Signs Date Time Temp Pulse Resp B/P (MAP) Pulse Ox O2 Delivery O2 Flow Rate FiO2 11/19/20 08:14 61 131/68 11/19/20 06:00 98.4 16 98 Room Air I&O- Last 24 Hours up to 6 AM 11/19/20 06:00 Intake Total 1300 ml Output Total 1175 ml Balance 125 ml Kiah Venegas MD Nov 19, 2020 16:34
--- NOTE | 2020-11-19 16:40 | IRINPTCON ---
[facility] IR Inpatient Consultation IR Inpatient Consultation DATE: Nov 19, 2020 HISTORY OF PRESENT ILLNESS: 65-year-old diabetic female, with atrial fibrillation, CHF, hypertension, CKD, prior PR and recent stroke. She was admitted in October, for systemic fevers and infected right heel ulcer, with positive blood cultures. She underwent debridement and posterior calcaneal resection. She then underwent right lower extremity angiography with me, with SFA angioplasty and posterior tibial artery recanalization and angioplasty, with good results and improved flow to the right foot. Patient was initially improving, however the wound now continues to deteriorate. She also suffered with a stroke on this admission. Patient is sitting up in bed, alert and oriented. She denies any pain in the right lower extremity. No fevers or chills. ALLERGIES: Please see below. HOME MEDICATIONS: Please see below. PAST MEDICAL HISTORY: Stroke on this admission Diabetes Hypertension CHF CKD Prior PR PAST SURGICAL HISTORY: Right calcaneal resection. Right leg angiogram with SFA angioplasty and posterior tibial artery recanalization and angioplasty, October 12, 2020 Defibrillator placement male Hernia surgery FAMILY HISTORY: Noncontributory. SOCIAL HISTORY: Nonsmoker. Denies alcohol or drugs. REVIEW OF SYSTEMS: Otherwise negative. PHYSICAL EXAMINATION: VITAL SIGNS: Please see below. GENERAL APPEARANCE: Appears well. Comfortable at rest. Normal mentation. HEENT: No scleral icterus. RESPIRATORY: Normal breathing at rest. CARDIOVASCULAR: Normal rate. EXTREMITIES: Right lower extremity: Edema to knee. Limb is warm to touch. Toes normal in color and warm to touch. Motor intact. Surgical site description reviewed from vascular surgery note. Left lower extremity: Edema to knee. Warm to touch. NEUROLOGICAL: Alert and oriented. PSYCHIATRIC: Appropriate to circumstance. LABORATORY DATA: 11/19/2020 hemoglobin 8.8 hematocrit 27.6 WBC 9.1 platelets 334. Sodium 134 potassium 4.0 BUN 25 creatinine 0.87 GFR greater than 60. Fast ing glucose 120 INR 2.7 Imaging: I personally reviewed the right lower extremity arterial ultrasound performed 11/18/2020. There is flow in the right common femoral artery, superficial femoral artery, profunda femoris, popliteal artery, anterior tibial artery and posterior tibial artery. ASSESSMENT/PLAN: 65-year-old diabetic female with chronic PAD and nonhealing right heel ulcer, which subsequently became infected and required partial calcaneal resection in the OR. She underwent angiography of the right lower extremity with me on 10/12/2020, which showed severe distal SFA stenosis and occluded mid and distal posterior tibial artery. She responded well to SFA and posterior tibial artery angioplasty with improved 3 vessel flow to the right foot. However, she does have severe microvascular disease within the right foot itself. Given its only been a month since last intervention with improved vascular flow to the right foot, I do not feel that repeat endovascular intervention at this t ramiro will be beneficial. Rather may be more risky, as holding Coumadin for any procedure, would put her at increased risk of repeat stroke. She does have severe microvascular disease within the right foot itself; the likely reason for wound non healing despite successful intervention. Continue antibiotics and wound care, appreciate vascular surgery consult. Will continue to follow as outpatient. CC Dr Bone Cc Dr. Rashid Allergies Coded Allergies: trimethoprim (Verified Allergy, Mild, 10/28/20) Home Medications Scheduled Amitriptyline HCl (Amitriptyline HCl), 50 MG PO QHS, (Reported) Amlodipine Besylate (Amlodipine Besylate), 2.5 MG PO DAILY, (Reported) Ascorbic Acid (Ascorbic Acid), 500 MG PO DAILY, (Reported) Bumetanide (Bumetanide), 1 MG PO DAILY, (Reported) Carvedilol (Carvedilol), 12.5 MG PO BID, (Reported) Digoxin (Digoxin), 250 MCG PO DAILY, (Reported) Febuxostat (Febuxostat), 40 MG PO DAILY, (Reported) Gemfibrozil (Lopid), 600 MG PO BID, (Reported) Insulin NPH Hum/Reg Insulin Hm (Humulin 70-30 Vial), 50 UNITS SC DAILY, (Reported) Insulin NPH Hum/Reg Insulin Hm (Humulin 70-30 Vial), 30 UNITS SC QHS, (Reported) Lisinopril (Lisinopril), 10 MG PO DAILY, (Reported) Magnesium Oxide (Magnesium Oxide), 400 MG PO Q2D, (Reported) Metformin HCl (Metformin HCl), 500 MG PO BIDWM, (Reported) Pantoprazole Sodium (Pantoprazole Sodium), 40 MG PO DAILY, (Reported) Warfarin Sodium (Warfarin Sodium), 3 MG PO QHS, (Reported) VS, I&O, 24H, Fishbone Vital Signs/I&O Vital Signs Date Time Temp Pulse Resp B/P (MAP) Pulse Ox O2 Delivery O2 Flow Rate FiO2 11/19/20 08:14 61 131/68 11/19/20 06:00 98.4 16 98 Room Air I&O- Last 24 Hours up to 6 AM 11/19/20 05:59 Intake Total 1240 ml Output Total 900 ml Balance 340 ml Laboratory Data 24H LABS Laboratory Tests 2 11/18/20 16:39: Bedside Glucose (Misc Panel) 174H 11/18/20 19:55: Bedside Glucose (Misc Panel) 116H 11/19/20 05:09: Prothrombin Time 29.0H, Prothromb Time International Ratio 2.70 11/19/20 05:10: Immature Granulocyte % (Auto) 0.8, Neutrophils (%) (Auto) 71.1H, Lymphocytes (%) (Auto) 16.9L, Monocytes (%) (Auto) 7.8, Eosinophils (%) (Auto) 2.7, Basophils (%) (Auto) 0.7, Neutrophils # (Auto) 6.5, Lymphocytes # (Auto) 1.5, Monocytes # (Auto) 0.7, Eosinophils # (Auto) 0.3, Basophils # (Auto) 0.1, Nucleated Red Blood Cells % (auto) 0.0, Anion Gap 4L, Glomerular Filtration Rate > 60.0, Calcium Level 8.2L, Magnesium Level 1.8 11/19/20 11:52: Bedside Glucose (Misc Panel) 112 CBC/BMP Laboratory Tests 11/19/20 05:10 Microbiology Microbiology 11/14/20 Wound Culture - Final, Complete Pseudomonas Aeruginosa GURVINDER SPENCE MD Nov 19, 2020 16:40
[2020-11-19 17:31] LABS: HEMATOCRIT 26.8 % (36.0-47.0); HEMOGLOBIN 8.5 g/dl (12.0-15.5)
[2020-11-19] MEDS: AMITRIPTYLINE 50 MG TAB PO SCH (22:31)
[2020-11-20] MEDS: LevoFLOXacin 500 MG TABLET PO SCH (05:10)
[2020-11-20] MEDS: SODIUM CHLORIDE 0.9% INJ 10 ML SYR IV SCH ×2 (05:10→18:04)
[2020-11-20 05:36] LABS: BASO # 0.1 10^3/uL (0.0-0.2); BASO % 0.8 % (0.0-1.0); EOS # 0.2 10^3/uL (0.0-0.5); EOS % 1.6 % (0.0-3.0); HEMATOCRIT 27.3 % (36.0-47.0); HEMOGLOBIN 8.7 g/dl (12.0-15.5); LYMPH # 1.9 10^3/uL (1.5-5.0); LYMPH % 18.3 % (24.0-44.0); MEAN CORPUSCULAR HEMOGLOBIN 27.4 pg (27.0-33.0); MEAN CORPUSCULAR HGB CONC 31.9 g/dl (32.0-36.5); MEAN CORPUSCULAR VOLUME 86.1 fl (80.0-96.0); MONO % 9.6 % (2.0-8.0); NEUTROPHILS % 68.9 % (36.0-66.0); PLATELET COUNT, AUTOMATED 298 10^3/uL (150-450); RED BLOOD COUNT 3.17 10^6/uL (4.00-5.40); WHITE BLOOD COUNT 10.2 10^3/uL (4.0-10.0)
[2020-11-20 05:44] LABS: INR 2.02; PROTHROMBIN TIME 23.2 SECONDS (12.7-14.5)
[2020-11-20 06:00] VITALS: BP 137/66
[2020-11-20 06:04] LABS: BLOOD UREA NITROGEN 25 MG/DL (7-18); CALCIUM LEVEL 8.5 MG/DL (8.8-10.2); CARBON DIOXIDE LEVEL 30 MEQ/L (21-32); CHLORIDE LEVEL 99 MEQ/L (98-107); CREATININE FOR GFR 0.81 MG/DL (0.55-1.30); GLOMERULAR FILTRATION RATE > 60.0 (>45); GLUCOSE, FASTING 145 MG/DL (70-100); MAGNESIUM LEVEL 1.7 MG/DL (1.8-2.4); POTASSIUM SERUM 3.9 MEQ/L (3.5-5.1); SODIUM LEVEL 133 MEQ/L (136-145)
[2020-11-20] MEDS: HumaLOG INSULIN (NovoLOG) PER UNIT SC SCH ×4 (07:30→21:00)
[2020-11-20] MEDS: NYSTATIN 100,000 UNITS/GM TOPICAL PWD 15 GM TOP SCH ×2 (09:00→21:13)
[2020-11-20] MEDS: CARVedilol 12.5 MG TAB PO SCH ×2 (09:00→21:19)
[2020-11-20] MEDS: FEBUXOSTAT 40 MG TABLET (ULORIC) PO SCH (10:02)
[2020-11-20] MEDS: ENOXAPARIN 80MG/0.8ML SYRINGE (J1650 PER 10MG) SC SCH ×2 (10:02→21:10)
[2020-11-20] MEDS: SENOKOT S TAB PO SCH ×2 (10:02→21:09)
[2020-11-20] MEDS: BUMETANIDE 1 MG TAB PO SCH (10:03)
[2020-11-20] MEDS: ATORVASTATIN 20 MG TAB PO SCH (10:03)
[2020-11-20] MEDS: ASPIRIN 81MG ENTERIC TABLET PO SCH (10:03)
[2020-11-20] MEDS: MAGNESIUM OXIDE 400MG TAB (MAG-OX) PO SCH (10:04)
[2020-11-20] MEDS: ASCORBIC ACID 500 MG TAB PO SCH (10:04)
[2020-11-20] MEDS: PANTOPRAZOLE 40MG TAB (PROTONIX) PO SCH (10:05)
--- NOTE | 2020-11-20 12:37 | IPNPDOC ---
Text Note Date of Service The patient was seen on 11/20/20 . NOTE The patient is comfortable, sitting propped up in bed, and having her lunch. She is in no acute distress. She is awake alert and appropriately responsive. She complains of generalized weakness, however no focal weakness. Afebrile, vital signs stable. She is saturating 98% on room air. Her urine was noted to be cloudy yesterday, and urine analysis was sent, which revealed a cloudy urine, with yeast. Urine culture is pending. She is on levothyroxine, for right heel gangrene and osteomyelitis. Her labs have been reviewed: White count of 10.2 thousand, hemoglobin stable at 8.7 g%. Her INR today is 2.02. She is being bridged with therapeutic Lovenox, with a hospitalist. Echocardiogram: 10/20/2020: CONCLUSIONS: 1. Study is of acceptable technical quality; underlying atrial fibrillation and ventricular pacing. 2. Normal LV size with moderate left ventricular hypertrophy and estimated LVEF of 45 to 50%. Septal wall motion abnormality likely related to pacing. 3. No hemodynamically significant aortic valvular disease in spite of prominent valvular sclerosis. 4. Mild to moderate mitral insufficiency. 5. Elevated central venous pressure and mild pulmonary hypertension. 6. Severe biatrial enlargement. 7. Suspicion for left to right shunt across atrial septum based on color Doppler imaging. 8. "Negative Bubble Study." DD: Fortunato Lazaro MD 10/20/20 0000 DT: NURIS 10/20/20 2301 Impression and plan: Peripheral arterial disease, with gangrene of the right heel and osteomyelitis, with acute on chronic occlusion of the right distal superficial femoral artery and popliteal artery, possibly secondary to atrial fibrillation. History of embolic stroke, on 10/20/2020. She is planned for right above-knee amputation, in the near future, based on her INR. As her INR is 2 today, it would be prudent to proceed with the procedure, as soon as possible, once INR is acceptable to perform the procedure, to prevent further worsening of the infection and gangrene of the right foot and heel. The procedure is tentatively planned for tomorrow a.m. if the INR is less than 2. If the INR is more than 2, the procedure will be planned, for 11/23/2020-Monday I discussed with her son, over the phone, at [phone]. He understands and agrees to the plan of care. Also discussed the plan of care, with the patient, through the acetylene cutter Azalia on iPad. She also understands and agrees to the plan of care. Plan of care was conveyed to the care [id number], and hospitalist Dr. Branden Dudley VS,Radha, I+O VS, Radha, I+O Laboratory Tests 11/19/20 16:55 11/20/20 05:16 Vital Signs Date Time Temp Pulse Resp B/P (MAP) Pulse Ox O2 Delivery O2 Flow Rate FiO2 11/20/20 09:00 63 137/66 11/20/20 06:00 98.1 17 98 Room Air I&O- Last 24 Hours up to 6 AM 11/20/20 06:00 Intake Total 1060 ml Output Total 1425 ml Balance -365 ml Kiah Venegas MD Nov 20, 2020 12:37
--- NOTE | 2020-11-20 17:00 | IPNPDOC ---
Text Note Date of Service The patient was seen on 11/20/20. NOTE Subjective: Patient is a 65-year-old female with a PMHx of HTN, CAD, Chronic A. fib, CHF, PVD, DLP, DM2, Gout, Vertigo, GERD who presented to the ER with complaints of infected R heel wound. Patient was admitted to the hospitalist service for further evaluation and treatment. Podiatry and ID were called on consultation. Patient was seen and examined at the bedside. Patient reports that she feels anxious about the surgery tomorrow. She denies any chest pain, shortness breath, palpitations. Has not experience any nausea, pain, diarrhea yesterday and Landis catheter removed but was reinserted because of urinary retention. Objective: Vitals (See below) General: Patient is sitting up in bed watching television, appears comfortable, awake and alert, oriented to person, place and time HEENT: AT, NC CVS: +S1S2 Lungs: Air entry appears to be fair bilaterally without any auscultated evidence of crackles, wheezing or rhonchi Abdomen: Soft, nondistended, nontender Extremities: Lower extremities do not reveal any significant edema, R foot with dressing in place Imaging: Extremity CT 10/05: 1. There is a large soft tissue ulceration defect seen in the medial heel pad of the right foot, best seen on image 108 of series 303. 2. Medial to the soft tissue defect there is a fluid and gas collection, likely an abscess, measuring 2.8 x 2.1 cm transversely on image 61 of series 302 and measuring 1.6 cm in craniocaudal dimension on image 104 of series 303. 3. The bony cortical outline and marrow defect underlying the soft tissue defect are suggestive of acute osteomyelitis on image 50 of series 302. 4. No acute fractures. 5. Chronic calcific enthesopathy is seen in the proximal Achilles on image 6 of series 302. Foot XR 10/07: Postsurgical changes at the posterior aspect of calcaneal process. No immediate complication is evident. Head CT 10/20: Mild generalized volume loss. No acute intracranial abnormality. CTA head 10/20: 1. Occluded right middle cerebral artery proximally. 2. Corresponding hypodensity in the right middle cerebral artery territory suggestive of acute infarct. No acute hemorrhage. CXR 11/03: Area of increased density in the right apex should be evaluated further with PA and lateral views. Slight cardiac enlargement. No evidence of failure or pn eumonia. PICC line in place with tip in superior vena cava. Carotid Vascular US 10/20: According to the SRU criteria there is less than 50% stenosis of the internal carotid artery bilaterally. This is secondary to both calcified and noncalcified plaque formation CT Head 10/20: 1. There has been no change since a study done earlier in the day. No interval hemorrhage. 2. Minimal chronic ischemic white matter change and atrophy with ill-defined areas of slightly decreased attenuation in the right cerebral hemisphere centrally and subcortical parietal lobe which are unchanged. ECHO 10/20: 1. Study is of acceptable technical quality; underlying atrial fibrillation and ventricular pacing. 2. Normal LV size with moderate left ventricular hypertrophy and estimated LVEF of 45 to 50%. Septal wall motion abnormality likely related to pacing. 3. No hemodynamically significant aortic valvular disease in spite of prominent valvular sclerosis. 4. Mild to moderate mitral insufficiency. 5. Elevated central venous pressure and mild pulmonary hypertension. 6. Severe biatrial enlargement. 7. Suspicion for left to right shunt across atrial septum based on color Doppler imaging. 8. "Negative Bubble Study." Esophageal XR 10/21: The patient is able to be given all consistencies performed today. However, there is an increase risk with ingestion of all food because of delayed triggering and pooling in the vallecula. CT head 10/21: New area of abnormal decreased attenuation as described above consistent with an acute nonhemorrhagic infarction. MRI examination of the brain is recommended. CT head 10/22: Who ventricular nucleus and external capsule nonhemorrhagic infarct showing slight increase when compared with yesterday's examination. No evidence of hemorrhage or mass effect. CXR 10/22: Stable cardiomegaly. Cardiac electrodes remain in place Prominent lung markings -- perhaps [id number] vascular congestion. Diffuse interstitial pneumonitis cannot be excluded. Clinical correlation is needed. Follow-up is suggested, as symptoms warrant. CXR 10/25: 1. There is moderate congestive change with moderate pulmonary edema. 2. Mild left basilar atelectasis or infiltrate. Foot XR 11/06: Soft tissue and bony defect along the posterior aspect of the foot involving calcaneus. Esophagus XR 11/11: Flash penetration as described above, a detailed report will be provided by speech pathology. 3.3 minutes of fluoroscopy time was utilized for this procedure. Some fluoroscopic images are performed with last image hold technology. These images require no additional radiation CT Head 11/11: Again noted is a subacute infarction in the distribution of the right lenticulostriate arteries. There are no complications evident. No significant change. Shoulder XR 11/16: No evidence of fracture or dislocation. There is arthritis of the acromioclavicular and glenohumeral joints. Arterial US 11/18: Occlusion distal right superficial femoral artery and proximal popliteal artery with reconstitution of the distal popliteal artery. Very slow flow in the distal calf arteries at the ankle. Assessment and plan: Infected RLE heel ulcer with acute osteomyelitis of the calcaneum; in the setting of vascular compromise - Wound appears; no necrosis; serosanguineous drainage noted - Mild leukocytosis, CRP essentially unchanged - Wound cultures 10/05: Escherichia coli, Morganella morganii, Enterococcus faecalis, MRSA - Wound cultures 10/07: Morganella morganii, Escherichia coli, Enterococcus faecalis - Wound culture 11/14: Pseudomonas aeruginosa - s/p Posterior resection of the right calcaneum on 10/07/[address] Bone - s/p Vascular intervention or R SFA angioplasty on 10/12/[address] Maya - Imaging noted above - Podiatry, Vascular surgery, and infectious disease on consultation - c/w Rhett; Completed Zosyn (End date 11/16/2020) - Plan for R AKA tomorrow with vascular surgery - Discussed surgery with patient and son/health proxy (Dong Powell); advised them of risks of surgery including additional strokes and MIs - has verbalized understanding - Patient is medically optimized for this moderate/high risk surgery at a moderate to high risk given her comorbidities; discussed risks / benefits with family Acute right MCA stroke with left arm weakness - Patient had code stroke called on 8/10 AM - Imaging noted above; Unable to get MRI 2/2 PM - c/w ASA 81 - Warfarin on hold; However will continue with Lovenox therapeutic dosing until post-surgery - c/w Atorvastatin 80 - Neurology was consulted; appreciated their input Chronic Systolic CHF - No signs of decompensation - Saturating well on room air - Physical without evidence of fluid overload - s/p AICD / Biventricular pacing Dysphagia - c/w Speech therapy recommendations Troponin elevation - likely 2/2 demand ischemia / NSTEMI (Type II) - No chest pain, SOB or palpitations - Troponin has normalized - ECHO Noted above - Serial EKGs have shown no significant change - c/w Carvedilol, ASA 81 - Warfarin on hold; However will continue with Lovenox therapeutic dosing until post-surgery s/p Gram-negative bacteremia - Blood cultures 10/05: (1 of 2) Morganella Morganii - Blood cultures 10/06: Negative at 5 days - Completed Zosyn Anemia - s/p 2 units PRBC - Hg stable IDDM2 - c/w ISS and Levemir HTN - BP well controlled - c/w Carvedilol, Bumetanide, Lisinopril, Amlodipine Chronic Atrial fibrillation - c/w rate control with Carvedilol - INR appropriate for OR - Warfarin on hold; However will continue with Lovenox therapeutic dosing until post-surgery DLP - c/w Gemfibrozil Gout - c/w Febuxostat CKD3 - Cr at baseline Neuropathy - c/w Amitriptyline GI prophylaxis - c/w Protonix DVT prophylaxis - Warfarin on hold; However will continue with Lovenox therapeutic dosing until post-surgery Disposition: - Will need rehabilitation moving forward - Will DC ALC status at this time VSRadha, I+O VSRadha, I+O Laboratory Tests 11/19/20 16:55 11/20/20 05:16 Vital Signs Date Time Temp Pulse Resp B/P (MAP) Pulse Ox O2 Delivery O2 Flow Rate FiO2 11/20/20 09:00 63 137/66 11/20/20 06:00 98.1 17 98 Room Air I&O- Last 24 Hours up to 6 AM 11/20/20 06:00 Intake Total 1060 ml Output Total 1425 ml Balance -365 ml EMILY SOTO MD Nov 20, 2020 17:00
[2020-11-20] MEDS ORDERED: propofoL 200 MG/20 ML VIAL As Ordered ONE (17:25)
[2020-11-20] MEDS ORDERED: ONDANSETRON 4MG/2ML VIAL As Ordered ONE (17:25)
[2020-11-20] MEDS ORDERED: LIDOCAINE 2% 100MG/5ML SDV (FOR ANES.) As Ordered ONE (17:25)
[2020-11-20] MEDS ORDERED: KETOROLAC 60MG 2ML VIAL As Ordered ONE (17:25)
[2020-11-20] MEDS ORDERED: dexameTHASONE 4 MG/ML 1ML VIAL (J1100 PER 1MG) As Ordered ONE (17:25)
[2020-11-20] MEDS ORDERED: MIDAZOLAM INJ 2MG/2ML VIAL (J2250 PER 1MG) As Ordered ONE (17:27)
[2020-11-20] MEDS ORDERED: fentaNYL 100 MCG/2 ML INJECTION (J3010) As Ordered ONE (17:27)
[2020-11-20] MEDS: ACETAMINOPHEN TAB 650MG DOSE (2X325MG) PO PRN (19:45)
[2020-11-20] MEDS: AMITRIPTYLINE 50 MG TAB PO SCH (21:09)
[2020-11-20] MEDS ORDERED: TAMSULOSIN 0.4 MG CAP PO ONE (22:10)
[2020-11-20] MEDS ORDERED: LIDOCAINE 2% 5ML JELLY UROJET TOP PRN (22:10)
[2020-11-21] VITALS (9 sets, daily range): BP systolic 134–165; BP diastolic 63–84
[2020-11-21 04:54] LABS: BASO # 0.1 10^3/uL (0.0-0.2); BASO % 0.6 % (0.0-1.0); EOS # 0.2 10^3/uL (0.0-0.5); EOS % 2.1 % (0.0-3.0); HEMOGLOBIN 8.4 g/dl (12.0-15.5); LYMPH # 1.8 10^3/uL (1.5-5.0); MEAN CORPUSCULAR HEMOGLOBIN 27.3 pg (27.0-33.0); MEAN CORPUSCULAR HGB CONC 32.3 g/dl (32.0-36.5); MEAN CORPUSCULAR VOLUME 84.4 fl (80.0-96.0); MONO # 1.1 10^3/uL (0.0-0.8); MONO % 11.7 % (2.0-8.0); NEUTROPHILS # 6.4 10^3/uL (1.5-8.5); PLATELET COUNT, AUTOMATED 267 10^3/uL (150-450); RED BLOOD COUNT 3.08 10^6/uL (4.00-5.40); WHITE BLOOD COUNT 9.7 10^3/uL (4.0-10.0)
[2020-11-21 05:03] LABS: INR 1.85; PROTHROMBIN TIME 21.7 SECONDS (12.7-14.5)
[2020-11-21 05:16] LABS: BLOOD UREA NITROGEN 21 MG/DL (7-18); CALCIUM LEVEL 8.3 MG/DL (8.8-10.2); CARBON DIOXIDE LEVEL 29 MEQ/L (21-32); CHLORIDE LEVEL 100 MEQ/L (98-107); CREATININE FOR GFR 0.82 MG/DL (0.55-1.30); GLOMERULAR FILTRATION RATE > 60.0 (>45); GLUCOSE, FASTING 136 MG/DL (70-100); MAGNESIUM LEVEL 1.6 MG/DL (1.8-2.4); POTASSIUM SERUM 3.6 MEQ/L (3.5-5.1); SODIUM LEVEL 135 MEQ/L (136-145)
[2020-11-21] MEDS: LevoFLOXacin 500 MG TABLET PO SCH (05:47)
[2020-11-21] MEDS: SODIUM CHLORIDE 0.9% INJ 10 ML SYR IV SCH ×2 (05:47→17:01)
[2020-11-21] MEDS: HumaLOG INSULIN (NovoLOG) PER UNIT SC SCH ×4 (07:30→21:00)
[2020-11-21] MEDS ORDERED: MIDAZOLAM INJ 2MG/2ML VIAL (J2250 PER 1MG) As Ordered ONE (07:31)
[2020-11-21] MEDS ORDERED: LIDOCAINE 2% 100MG/5ML SDV (FOR ANES.) As Ordered ONE (07:32)
[2020-11-21] MEDS ORDERED: propofoL 200 MG/20 ML VIAL As Ordered ONE (07:32)
[2020-11-21] MEDS ORDERED: ROCURONIUM BROMIDE 50 MG/5 ML VIAL As Ordered ONE (07:32)
[2020-11-21] MEDS ORDERED: fentaNYL 100 MCG/2 ML INJECTION (J3010) As Ordered ONE (07:32)
[2020-11-21] MEDS: ATORVASTATIN 20 MG TAB PO SCH (07:42)
[2020-11-21] MEDS: PANTOPRAZOLE 40MG TAB (PROTONIX) PO SCH (07:42)
[2020-11-21] MEDS: ASCORBIC ACID 500 MG TAB PO SCH (07:43)
[2020-11-21] MEDS: SENOKOT S TAB PO SCH ×2 (07:43→21:04)
[2020-11-21] MEDS: FEBUXOSTAT 40 MG TABLET (ULORIC) PO SCH (07:43)
[2020-11-21] MEDS: ASPIRIN 81MG ENTERIC TABLET PO SCH (07:43)
[2020-11-21] MEDS: BUMETANIDE 1 MG TAB PO SCH (07:43)
[2020-11-21] MEDS: CARVedilol 12.5 MG TAB PO SCH ×2 (07:47→21:03)
[2020-11-21] MEDS ORDERED: MAG SULF 1GM/100ML (MAG RUN) 1 GM in IV 1 EA IV ONE (08:00)
[2020-11-21] MEDS ORDERED: ONDANSETRON 4MG/2ML VIAL As Ordered ONE ×2 (08:30→09:16)
[2020-11-21] MEDS ORDERED: dexameTHASONE 4 MG/ML 1ML VIAL (J1100 PER 1MG) As Ordered ONE ×2 (08:30→09:16)
[2020-11-21] MEDS ORDERED: SUGAMMADEX SODIUM 500 MG/5 ML VIAL (BRIDION) As Ordered ONE ×2 (08:30→09:16)
[2020-11-21] MEDS ORDERED: LevoFLOXacin 500MG/100ML IV BAG (J1956 PER 250MG) As Ordered ONE (08:32)
--- NOTE | 2020-11-21 09:04 | IPN ---
PROGRESS NOTE DATE: 11/20/2020 SUBJECTIVE: Yesterday, we gave her a trial of catheter removal, as she was having some hematuria. The patient had urinary retention and a new catheter was placed. Hematuria has resolved. She denies any complaints. No fever, chills, night sweats, no flank pain, no other complaints. She is scheduled to have surgery tomorrow for right leg amputation. LABORATORY: White count 10.2, hemoglobin 8.7, hematocrit 37.3, platelets 298. 59% neutrophils, 18% lymphocytes, 9% monocytes. Sodium 133, potassium 3.9, chloride 99, bicarbonate 30, BUN 25, creatinine 0.81, glucose 145, calcium 8.5, magnesium 1.7. Urine culture from catheter yesterday is pending. Urinalysis had too numerous to count red cells and 161 white cells. OBJECTIVE: On physical examination, temperature is 98.1, pulse 63, respirations 17, blood pressure 137/66, O2 saturation 98% on room air. Heart: Normal S1, S2, no murmurs. Lungs: Clear, no wheezes, rales or rhonchi. Abdomen is obese, soft and nontender. Extremities: Trace edema, right heel with a large decubitus ulcer with purulent discharge, nonhealing and extension of the ulcer laterally into the malleolus with black eschar measuring 3 cm x 2 cm ulceration. A smaller ulcer above the lateral malleolus measures 2 x 1 cm. Purplish discoloration of the toes. IMPRESSION/PLAN: Acute calcaneus osteomyelitis with severe peripheral vascular disease. The patient is planned for above knee amputation tomorrow. Discontinue Levaquin postoperatively. The patient had hematuria probably is from trauma. She does not have symptoms, does not have a white count or fever. Probably her urine culture is going to grow some bacteria because of the Landis catheter being in place for a month; but if she does not have symptoms, it does not need to be treated and it will be classified as asymptomatic bacteruria, with the new Landis catheter, it looks like her urine is clean without hematuria and the patient is asymptomatic. Continue to monitor urinary symptoms; and as long as she is asymptomatic, I would not treat her. DEVENDRA
--- NOTE | 2020-11-21 09:30 | IPNPDOC ---
Text Note Date of Service The patient was seen on 11/21/20. NOTE Subjective: Patient is a 65-year-old female with a PMHx of HTN, CAD, Chronic A. fib, CHF, PVD, DLP, DM2, Gout, Vertigo, GERD who presented to the ER with complaints of infected R heel wound. Patient was admitted to the hospitalist service for further evaluation and treatment. Podiatry and ID were called on consultation. Patient was seen and examined at the bedside. Patient was seen preoperatively. Patient reports that she feels sad is not in any acute discomfort. Denies any chest pain, abdominal pain. Patient has a Landis catheter in place. Again she can't feel much of her foot Objective: Vitals (See below) General: Patient is sitting up in bed in preparation for surgery she is discussing with anesthesia, appears comfortable, not in any acute distress, somewhat depressed mood but awake and alert HEENT: Atraumatic and normocephalic CVS: +S1S2 Lungs: Air entry appears to be fair bilaterally without any evidence of wheezing, crackles or rhonchi on auscultation Abdomen: Her abdomen remains soft without any appreciated distention or tenderness Extremities: Lower extremities do not reveal any pitting edema, right foot with dressing in place Imaging: Extremity CT 10/05: 1. There is a large soft tissue ulceration defect seen in the medial heel pad of the right foot, best seen on image 108 of series 303. 2. Medial to the soft tissue defect there is a fluid and gas collection, likely an abscess, measuring 2.8 x 2.1 cm transversely on image 61 of series 302 and measuring 1.6 cm in craniocaudal dimension on image 104 of series 303. 3. The bony cortical outline and marrow defect underlying the soft tissue defect are suggestive of acute osteomyelitis on image 50 of series 302. 4. No acute fractures. 5. Chronic calcific enthesopathy is seen in the proximal Achilles on image 6 of series 302. Foot XR 10/07: Postsurgical changes at the posterior aspect of calcaneal process. No immediate complication is evident. Head CT 10/20: Mild generalized volume loss. No acute intracranial abnormality. CTA head 10/20: 1. Occluded right middle cerebral artery proximally. 2. Corresponding hypodensity in the right middle cerebral artery territory suggestive of acute infarct. No acute hemorrhage. CXR 8/24: Area of increased density in the right apex should be evaluated further with PA and lateral views. Slight cardiac enlargement. No evidence of failure or pneumonia. PICC line in place with tip in superior vena cava. Carotid Vascular US 10/20: According to the SRU criteria there is less than 50% stenosis of the internal carotid artery bilaterally. This is secondary to both calcified and noncalcified plaque formation CT Head 10/20: 1. There has been no change since a study done earlier in the day. No interval hemorrhage. 2. Minimal chronic ischemic white matter change and atrophy with ill-defined areas of slightly decreased attenuation in the right cerebral hemisphere centrally and subcortical parietal lobe which are unchanged. ECHO 10/20: 1. Study is of acceptable technical quality; underlying atrial fibrillation and ventricular pacing. 2. Normal LV size with moderate left ventricular hypertrophy and estimated LVEF of 45 to 50%. Septal wall motion abnormality likely related to pacing. 3. No hemodynamically significant aortic valvular disease in spite of prominent valvular sclerosis. 4. Mild to moderate mitral insufficiency. 5. Elevated central venous pressure and mild pulmonary hypertension. 6. Severe biatrial enlargement. 7. Suspicion for left to right shunt across atrial septum based on color Doppler imaging. 8. "Negative Bubble Study." Esophageal XR 10/21: The patient is able to be given all consistencies performed today. However, there is an increase risk with ingestion of all food because of delayed triggering and pooling in the vallecula. CT head 10/21: New area of abnormal decreased attenuation as described above consistent with an acute nonhemorrhagic infarction. MRI examination of the brain is recommended. CT head 10/22: Who ventricular nucleus and external capsule nonhemorrhagic infarct showing slight increase when compared with yesterday's examination. No evidence of hemorrhage or mass effect. CXR 10/22: Stable cardiomegaly. Cardiac electrodes remain in place Prominent lung markings -- perhaps [id number] vascular congestion. Diffuse interstitial pneumonitis cannot be excluded. Clinical correlation is needed. Follow-up is suggested, as symptoms warrant. CXR 10/25: 1. There is moderate congestive change with moderate pulmonary edema. 2. Mild left basilar atelectasis or infiltrate. Foot XR 11/06: Soft tissue and bony defect along the posterior aspect of the foot involving calcaneus. Esophagus XR 11/11: Flash penetration as described above, a detailed report will be provided by speech pathology. 3.3 minutes of fluoroscopy time was utilized for this procedure. Some fluoroscopic images are performed with last image hold technology. These images require no additional radiation CT Head 11/11: Again noted is a subacute infarction in the distribution of the right lenticulostriate arteries. There are no complications evident. No significant change. Shoulder XR 11/16: No evidence of fracture or dislocation. There is arthritis of the acromioclavicular and glenohumeral joints. Arterial US 11/18: Occlusion distal right superficial femoral artery and proximal popliteal artery with reconstitution of the distal popliteal artery. Very slow flow in the dista l calf arteries at the ankle. Assessment and plan: Infected RLE heel ulcer with acute osteomyelitis of the calcaneum; in the setting of vascular compromise - Dressing in place - s/p leukocytosis, CRP essentially unchanged - will repeat tomorrow - Wound cultures 10/05: Escherichia coli, Morganella morganii, Enterococcus faecalis, MRSA - Wound cultures 10/07: Morganella morganii, Escherichia coli, Enterococcus faecalis - Wound culture 11/14: Pseudomonas aeruginosa - s/p Posterior resection of the right calcaneum on 10/07/[address] Bone - s/p Vascular intervention or R SFA angioplasty on 10/12/[address] Myaa - Imaging noted above - Podiatry, Vascular surgery, and infectious disease on consultation - c/w Levaquin; Completed Zosyn (6 week course) - Will discontinue Levaquin post-operatively - Plan for R AKA today - Again discussed surgery with patient and son/health proxy (Dong Powell); risks of surgery including additional strokes and MIs were discussed - verbalized understanding - Patient remains medically optimized for this moderate/high risk surgery at a moderate to high risk given her comorbidities; discussed risks / benefits with family Acute right MCA stroke with left arm weakness - Patient had code stroke called on 8/10 AM - Imaging noted above; Unable to get MRI 2/2 PM - c/w ASA 81 - Warfarin on hold; However will continue with Lovenox therapeutic dosing until post-surgery (Lovenox dose non-administered this morning for OR) - c/w Atorvastatin 80 - Neurology was consulted; appreciated their input Chronic Systolic CHF - Again no signs of decompensation; LE are without edema - Saturating well on room air - Physical without evidence of fluid overload - s/p AICD / Biventricular pacing - c/w Bumetanide Dysphagia - c/w Speech therapy recommendations Troponin elevation - likely 2/2 demand ischemia / NSTEMI (Type II) - Today she is without any chest pain, SOB or palpitations - Troponin has normalized - ECHO Noted above - Serial EKGs have shown no significant change - c/w Carvedilol, ASA 81 - Warfarin on hold; However will continue with Lovenox therapeutic dosing until post-surgery (Lovenox dose non-administered this morning for OR) s/p Gram-negative bacteremia - Blood cultures 10/05: (1 of 2) Morganella Morganii - Blood cultures 10/06: Negative at 5 days - Completed Zosyn Anemia - s/p 2 units PRBC - Hg stable IDDM2 - c/w ISS and Levemir HTN - BP well controlled - c/w Carvedilol, Bumetanide, Lisinopril, Amlodipine Chronic Atrial fibrillation - c/w rate control with Carvedilol - INR appropriate for OR - Warfarin on hold; However will continue with Lovenox therapeutic dosing until post-surgery DLP - c/w Gemfibrozil Gout - c/w Febuxostat CKD3 - Cr at baseline Neuropathy - c/w Amitriptyline GI prophylaxis - c/w Protonix DVT prophylaxis - Warfarin on hold; However will continue with Lovenox therapeutic dosing until post-surgery (Lovenox dose non-administered this morning for OR) Disposition: - Will need rehabilitation moving forward - Awaiting clinical improvement Radha PINEDA, I+O VSRadha I+O Laboratory Tests 11/21/20 04:39 Vital Signs Date Time Temp Pulse Resp B/P (MAP) Pulse Ox O2 Delivery O2 Flow Rate FiO2 11/21/20 07:47 62 135/64 11/21/20 06:00 98.6 17 98 Room Air I&O- Last 24 Hours up to 6 AM 11/21/20 06:00 Intake Total 990 ml Output Total 1050 ml Balance -60 ml EMILY SOTO MD Nov 21, 2020 09:30
[2020-11-21] MEDS: NYSTATIN 100,000 UNITS/GM TOPICAL PWD 15 GM TOP SCH ×2 (09:58→21:05)
[2020-11-21] MEDS ORDERED: ACETAMINOPHEN 1000MG 100ML IV BTL (OFIRMEV) (J0131 PER 10MG) As Ordered ONE (10:31)
[2020-11-21] MEDS ORDERED: LR 1,000 ML IV SCH (11:25)
[2020-11-21] MEDS ORDERED: oxyCODONE 5MG TAB PO PRN (11:25)
[2020-11-21] MEDS ORDERED: fentaNYL 100 MCG/2 ML INJECTION (J3010) IV PRN (11:25)
[2020-11-21] MEDS ORDERED: ONDANSETRON 4MG/2ML VIAL IV PRN (11:25)
--- NOTE | 2020-11-21 11:38 | ROOPDOC ---
[facility] Report Of Operation Report of Operation DATE OF PROCEDURE: 11/21/20 PREPROCEDURE DIAGNOSES: Peripheral arterial disease, with acute and chronic occlusion of the right lower extremity arteries, with gangrene of the right heel and ischemic right foot, extensive tissue loss of the right foot, nonsalvageable right lower extremity, nonambulant patient POSTPROCEDURE DIAGNOSES: Peripheral arterial disease, with acute and chronic occlusion of the right lower extremity arteries, with gangrene of the right heel and ischemic right foot, extensive tissue loss of the right foot, nonsalvageable right lower extremity, nonambulant patient PROCEDURE PERFORMED: Right above-knee amputation. SURGEON: Kiah Venegas MD BESSEMER REGULATOR: None ANESTHESIA: General, ETT, Dr Bobo ESTIMATED BLOOD LOSS: Approximately 200 mL. COMPLICATIONS: None REMARKS: IV fluids 1300 mL crystalloids, 1 unit packed RBCs. INR 1.85. Last dose of Lovenox 12 hours ago FINDINGS: Viable right thigh muscles. SPECIMENS REMOVED: Amputated right leg PROCEDURE NOTE: Indication for the procedure: The patient is a 62-year-old lady with type 2 diabetes, on insulin, with severe peripheral neuropathy, and peripheral arterial disease, who was hospitalized with gangrene of the right heel and acute osteomyelitis of the heel, for which she underwent balloon angioplasty of the right posterior tibial artery, and superficial femoral artery, along with partial calcaneal resection and debridement. She has history of atrial fibrillation, and is on anticoagulation with the Coumadin. On 10/20/2020, the patient had a right hemispheric stroke. She was noted to have cold right foot, with mottling of the toes, 4 days ago, and was evaluated with the arterial ultrasound, which revealed acute occlusion of the right distal superficial femoral artery and popliteal artery. The patient was not a good candidate for any further revascularization, and hence the above-mentioned procedure was performed, after discussing with the patient ( through a decorating consultant), her daughter Prerna, and her son Andre. As the patient's INR was supratherapeutic, the Coumadin was held, and she was bridged with Lovenox until her INR was less than 2. The patient was receiving Levaquin p.o. preoperatively, for right foot infection. Informed consent was obtained from the patient, for the procedure, after explaining risk, benefits and complications of the procedure, which include but are not limited to bleeding, infection, cardiorespiratory complications, including myocardial infarction, respiratory failure, stump related complications, including neuroma, phantom limb syndrome, dehiscence of the stump, wound complications etc. Alternatives to the procedure including nonoperative treatment and its complications were explained. The patient and her family understood and agreed to the procedure DESCRIPTION OF PROCEDURE: The patient was identified correctly. She was placed supine on the operating room table and general anesthesia was administered. The right lower extremity was cleaned and draped in a sterile fashion. She received Levaquin 500 mg intravenous-as a continuation of her antibiotics. A timeout was performed. A fishmouth incision was made, in the right lower thigh, immediately above the knee joint. The incision was deepened through the skin, the subcutaneous tissue and the fascia. Hemostasis was achieved with cautery and silk ties. Medially the greater saphenous vein was identified ligated and divided between ties. The muscles were divided, to the femur bone. Medially the superficial femoral artery and vein were identified, ligated separately and divided between sutures. The femur was resected about 3 cm, above the skin incision with an electric saw. The bone edges were smoothened. The posterior flap was completed, with an amputation knife, and the amputated leg was passed off the field. Hemostasis on the posterior flap was achieved with silk ties, suture ligatures, and the cautery. The flaps were noted to be viable. The posterior flap was trimmed, appropriately, to facilitate closure of the incision. The flaps were irrigated with normal saline. Hemostasis was confirmed. A 10 Moldovan flat TIKI drain was placed adjacent to the femur, and brought out through a separate incision, in the lateral thigh. It was affixed to the skin with a 2-0 nylon suture. All counts were correct. The fascia was approximated with 2-0 Vicryl interrupted sutures. The skin was approximated with 2-0 nylon vertical mattress sutures and skin arianne. Xeroform followed by dry gauze, ABD pads and Devyn wrap was applied to the stump. The patient was hemodynamically stable. She was extubated and was transferred to the recovery room in a stable condition. The procedure and findings were conveyed to her son over the phone. Kiah Venegas MD Nov 21, 2020 11:38
[2020-11-21] MEDS: IBUPROFEN 400MG TAB PO PRN (13:56)
[2020-11-21] MEDS: MORPHINE 2 MG/ML 1ML VIAL (J2270) IV PRN (17:01)
[2020-11-21] MEDS: AMITRIPTYLINE 50 MG TAB PO SCH (21:04)
[2020-11-21] MEDS: oxyCODONE 5MG TAB PO PRN (21:05)
[2020-11-22 02:00] VITALS: BP 136/66
[2020-11-22 05:31] LABS: BASO % 0.2 % (0.0-1.0); EOS % 0.1 % (0.0-3.0); HEMATOCRIT 27.6 % (36.0-47.0); HEMOGLOBIN 8.9 g/dl (12.0-15.5); LYMPH # 1.5 10^3/uL (1.5-5.0); LYMPH % 11.1 % (24.0-44.0); MEAN CORPUSCULAR HEMOGLOBIN 27.6 pg (27.0-33.0); MEAN CORPUSCULAR HGB CONC 32.2 g/dl (32.0-36.5); MEAN CORPUSCULAR VOLUME 85.7 fl (80.0-96.0); MONO # 1.4 10^3/uL (0.0-0.8); MONO % 10.4 % (2.0-8.0); NEUTROPHILS # 10.1 10^3/uL (1.5-8.5); NEUTROPHILS % 77.4 % (36.0-66.0); PLATELET COUNT, AUTOMATED 246 10^3/uL (150-450); RED BLOOD COUNT 3.22 10^6/uL (4.00-5.40)
[2020-11-22 05:37] LABS: INR 1.68; PROTHROMBIN TIME 20.2 SECONDS (12.7-14.5)
[2020-11-22 05:55] LABS: BLOOD UREA NITROGEN 19 MG/DL (7-18); CALCIUM LEVEL 8.2 MG/DL (8.8-10.2); CARBON DIOXIDE LEVEL 28 MEQ/L (21-32); CHLORIDE LEVEL 104 MEQ/L (98-107); CREATININE FOR GFR 0.72 MG/DL (0.55-1.30); GLOMERULAR FILTRATION RATE > 60.0 (>45); GLUCOSE, FASTING 103 MG/DL (70-100); POTASSIUM SERUM 4.5 MEQ/L (3.5-5.1); SODIUM LEVEL 135 MEQ/L (136-145)
[2020-11-22 06:00] VITALS: BP 139/72
[2020-11-22] MEDS: SODIUM CHLORIDE 0.9% INJ 10 ML SYR IV SCH ×2 (06:57→14:15)
[2020-11-22] MEDS: HumaLOG INSULIN (NovoLOG) PER UNIT SC SCH ×4 (07:30→20:41)
[2020-11-22 10:00] VITALS: BP 135/66
[2020-11-22] MEDS: ATORVASTATIN 20 MG TAB PO SCH (10:23)
[2020-11-22] MEDS: CARVedilol 12.5 MG TAB PO SCH ×2 (10:23→20:39)
[2020-11-22] MEDS: ASCORBIC ACID 500 MG TAB PO SCH (10:24)
[2020-11-22] MEDS: SENOKOT S TAB PO SCH ×2 (10:24→20:39)
[2020-11-22] MEDS: BUMETANIDE 1 MG TAB PO SCH (10:24)
[2020-11-22] MEDS: PANTOPRAZOLE 40MG TAB (PROTONIX) PO SCH (10:24)
[2020-11-22] MEDS: FEBUXOSTAT 40 MG TABLET (ULORIC) PO SCH (10:24)
[2020-11-22] MEDS: ASPIRIN 81MG ENTERIC TABLET PO SCH (10:24)
[2020-11-22] MEDS: MAGNESIUM OXIDE 400MG TAB (MAG-OX) PO SCH (10:25)
[2020-11-22] MEDS: NYSTATIN 100,000 UNITS/GM TOPICAL PWD 15 GM TOP SCH ×2 (10:25→20:42)
[2020-11-22] MEDS: ENOXAPARIN 80MG/0.8ML SYRINGE (J1650 PER 10MG) SC SCH ×2 (10:26→20:42)
[2020-11-22] MEDS: MORPHINE 2 MG/ML 1ML VIAL (J2270) IV PRN ×3 (10:27→20:40)
--- NOTE | 2020-11-22 10:31 | IPNPDOC ---
Text Note Date of Service The patient was seen on 11/22/20. NOTE Subjective: Patient is a 65-year-old female with a PMHx of HTN, CAD, Chronic A. fib, CHF, PVD, DLP, DM2, Gout, Vertigo, GERD who presented to the ER with complaints of infected R heel wound. Patient was admitted to the hospitalist service for further evaluation and treatment. Podiatry and ID were called on consultation. Patient was seen and examined at the bedside. Currently appears to have a depressed mood. Reports that she is experiencing some pain in her right thigh. . She denies any chest pain, shortness of breath, cough, nausea, vomiting, abdominal pain Landis catheter remains present. Objective: Vitals (See below) General: Patient is sitting up in bed, appears slightly depressed, not in any acute distress, awake and alert HEENT: NC, AT CVS: +S1S2 Lungs: Air entry appears to be fair bilaterally without evidence of crackles, wheezing or rhonchi Abdomen: Nondistended, nontender, soft Extremities: LLE without edema, RLE with AKA and dressing in place Imaging: Extremity CT 10/05: 1. There is a large soft tissue ulceration defect seen in the medial heel pad of the right foot, best seen on image 108 of series 303. 2. Medial to the soft tissue defect there is a fluid and gas collection, likely an abscess, measuring 2.8 x 2.1 cm transversely on image 61 of series 302 and measuring 1.6 cm in craniocaudal dimension on image 104 of series 303. 3. The bony cortical outline and marrow defect underlying the soft tissue defect are suggestive of acute osteomyelitis on image 50 of series 302. 4. No acute fractures. 5. Chronic calcific enthesopathy is seen in the proximal Achilles on image 6 of series 302. Foot XR 10/07: Postsurgical changes at the posterior aspect of calcaneal process. No immediate complication is evident. Head CT 10/20: Mild generalized volume loss. No acute intracranial abnormality. CTA head 10/20: 1. Occluded right middle cerebral artery proximally. 2. Corresponding hypodensity in the right middle cerebral artery territory suggestive of acute infarct. No acute hemorrhage. CXR 11/03: Area of increased density in the right apex should be evaluated further with PA and lateral views. Slight cardiac enlargement. No evidence of failure or pn eumonia. PICC line in place with tip in superior vena cava. Carotid Vascular US 10/20: According to the SRU criteria there is less than 50% stenosis of the internal carotid artery bilaterally. This is secondary to both calcified and noncalcified plaque formation CT Head 10/20: 1. There has been no change since a study done earlier in the day. No interval hemorrhage. 2. Minimal chronic ischemic white matter change and atrophy with ill-defined areas of slightly decreased attenuation in the right cerebral hemisphere centrally and subcortical parietal lobe which are unchanged. ECHO 10/20: 1. Study is of acceptable technical quality; underlying atrial fibrillation and ventricular pacing. 2. Normal LV size with moderate left ventricular hypertrophy and estimated LVEF of 45 to 50%. Septal wall motion abnormality likely related to pacing. 3. No hemodynamically significant aortic valvular disease in spite of prominent valvular sclerosis. 4. Mild to moderate mitral insufficiency. 5. Elevated central venous pressure and mild pulmonary hypertension. 6. Severe biatrial enlargement. 7. Suspicion for left to right shunt across atrial septum based on color Doppler imaging. 8. "Negative Bubble Study." Esophageal XR 10/21: The patient is able to be given all consistencies performed today. However, there is an increase risk with ingestion of all food because of delayed triggering and pooling in the vallecula. CT head 10/21: New area of abnormal decreased attenuation as described above consistent with an acute nonhemorrhagic infarction. MRI examination of the brain is recommended. CT head 10/22: Who ventricular nucleus and external capsule nonhemorrhagic infarct showing slight increase when compared with yesterday's examination. No evidence of hemorrhage or mass effect. CXR 10/22: Stable cardiomegaly. Cardiac electrodes remain in place Prominent lung markings -- perhaps [id number] vascular congestion. Diffuse interstitial pneumonitis cannot be excluded. Clinical correlation is needed. Follow-up is suggested, as symptoms warrant. CXR 10/25: 1. There is moderate congestive change with moderate pulmonary edema. 2. Mild left basilar atelectasis or infiltrate. Foot XR 11/06: Soft tissue and bony defect along the posterior aspect of the foot involving calcaneus. Esophagus XR 11/11: Flash penetration as described above, a detailed report will be provided by speech pathology. 3.3 minutes of fluoroscopy time was utilized for this procedure. Some fluoroscopic images are performed with last image hold technology. These images require no additional radiation CT Head 11/11: Again noted is a subacute infarction in the distribution of the right lenticulostriate arteries. There are no complications evident. No significant change. Shoulder XR 11/16: No evidence of fracture or dislocation. There is arthritis of the acromioclavicular and glenohumeral joints. Arterial US 11/18: Occlusion distal right superficial femoral artery and proximal popliteal artery with reconstitution of the distal popliteal artery. Very slow flow in the distal calf arteries at the ankle. Assessment and plan: Infected RLE heel ulcer with acute osteomyelitis of the calcaneum; in the setting of vascular compromise; s/p R AKA - Dressing in place - s/p leukocytosis, CRP trending down - Wound cultures 10/05: Escherichia coli, Morganella morganii, Enterococcus faecalis, MRSA - Wound cultures 10/07: Morganella morganii, Escherichia coli, Enterococcus faecalis - Wound culture 11/14: Pseudomonas aeruginosa - s/p Posterior resection of the right calcaneum on 10/07/[address] Bone - s/p Vascular intervention or R SFA angioplasty on 10/12/[address] Maya - s/p R AKA on 11/21/[address] Venegas - Imaging noted above - Podiatry, Vascular surgery, and infectious disease on consultation - s/p Antibiotic therapy; s/p Levaquin; Completed Zosyn (6 week course) - c/w PT and OT; will likely require rehabilitation moving forward Acute right MCA stroke with left arm weakness - Patient had code stroke called on 810 AM - Imaging noted above; Unable to get MRI 2/2 PM - c/w ASA 81 - Lovenox therapeutic resumed this morning; will discuss with Vascular surgery about resuming Coumadin - c/w Atorvastatin 80 - Neurology was consulted; appreciated their input Chronic Systolic CHF - No signs of decompensation - Saturations have remained well on room air - Physical without evidence of fluid overload - s/p AICD / Biventricular pacing - c/w Bumetanide Dysphagia - c/w Speech therapy recommendations s/p Troponin elevation - likely 2/2 demand ischemia / NSTEMI (Type II) - Today she is without any chest pain, SOB or palpitations - Troponin has normalized - ECHO Noted above - Serial EKGs have shown no significant change - c/w Carvedilol, ASA 81 - Lovenox therapeutic resumed this morning; will discuss with Vascular surgery about resuming Coumadin s/p Gram-negative bacteremia - Blood cultures 10/05: (1 of 2) Morganella Morganii - Blood cultures 10/06: Negative at 5 days - s/p Antibiotic therapy Anemia - s/p 3 units PRBC - Hg stable IDDM2 - c/w ISS and Levemir HTN - BP well controlled - c/w Carvedilol, Bumetanide, Lisinopril, Amlodipine Chronic Atrial fibrillation - c/w rate control with Carvedilol - Lovenox therapeutic resumed this morning; will discuss with Vascular surgery about resuming Coumadin DLP - c/w Gemfibrozil Gout - c/w Febuxostat CKD3 - Cr at baseline Neuropathy - c/w Amitriptyline GI prophylaxis - c/w Protonix DVT prophylaxis - Lovenox therapeutic resumed this morning; will discuss with Vascular surgery about resuming Coumadin Disposition: - Will need rehabilitation moving forward - Awaiting clinical improvement VSRadha, I+O VSRadha, I+O Laboratory Tests 11/22/20 05:14 Vital Signs Date Time Temp Pulse Resp B/P (MAP) Pulse Ox O2 Delivery O2 Flow Rate FiO2 11/22/20 06:00 97.6 60 18 139/72 (94) 98 Room Air I&O- Last 24 Hours up to 6 AM 11/22/20 06:00 Intake Total 2030 ml Output Total 2170 ml Balance -140 ml EMILY SOTO MD Nov 22, 2020 10:31
--- NOTE | 2020-11-22 11:06 | IPNPDOC ---
Text Note Date of Service The patient was seen on 11/22/20. NOTE Postop day 1-s/p right above-knee amputation. The patient is doing well. She had pain 10 out of 10, which is responding well to morphine injection 2 mg IV which she received now and her current pain level is 3 out of 10. Her son Andre is at the bedside. She seems more perky today. She is awake alert and appropriately responsive. She is not in acute distress. Afebrile, with stable vital signs. The right thigh dressing is clean dry and intact. The TIKI drain has serosangu ineous drainage-90 mL since surgery yesterday. She is a left-handed, and after the stroke, she regained her left upper extremity function only up to 40%. She can move the left toes however she is not able to lift up the left lower extremity. Motor power left upper and lower extremity 3 out of 5 Labs reviewed: Slightly elevated white count, hemoglobin stable, platelet count stable. INR 1.68. Lovenox was resumed today as per my advice. Urine culture has revealed yeast more than 100,000. Antibiotics have been discontinued, as per ID recommendation. Impression/plan Status post right above-knee amputation. She is doing well Stroke with significant disability of the left side of the body, secondary to atrial fibrillation-she is being bridged with Lovenox. Suggest holding off oral anticoagulation, till the TIKI drain is discontinued, which will be planned, when the drainage is decreased, and the quality of the drainage improves to serous -possibly by 11/24/2020. Urinary tract infection with yeast-antifungals as per primary service and infectious diseases Suggest physical therapy, for post stroke as well as for amputation rehab. Discussed plan of care, with the patient, through her son, as well as with Dr. Dudley. VS,Dangelobone, I+O VS, Dangelobone, I+O Laboratory Tests 11/22/20 05:14 Vital Signs Date Time Temp Pulse Resp B/P (MAP) Pulse Ox O2 Delivery O2 Flow Rate FiO2 11/22/20 10:27 16 11/22/20 10:23 61 135/66 11/22/20 10:00 98.2 97 Room Air I&O- Last 24 Hours up to 6 AM 11/22/20 06:00 Intake Total 2030 ml Output Total 2170 ml Balance -140 ml Kiah Venegas MD Nov 22, 2020 11:06
[2020-11-22 14:00] VITALS: BP 150/58
[2020-11-22] MEDS: oxyCODONE 5MG TAB PO PRN ×2 (16:22→23:10)
[2020-11-22] MEDS: IBUPROFEN 400MG TAB PO PRN (20:39)
[2020-11-22] MEDS: AMITRIPTYLINE 50 MG TAB PO SCH (20:39)
[2020-11-22] MEDS: SODIUM CHLORIDE 0.9% INJ 10 ML SYR IV PRN (20:40)
[2020-11-22 20:59] VITALS: BP 136/64
[2020-11-23 06:04] LABS: HEMATOCRIT 28.3 % (36.0-47.0); MEAN CORPUSCULAR HEMOGLOBIN 27.5 pg (27.0-33.0); MEAN CORPUSCULAR HGB CONC 31.8 g/dl (32.0-36.5); MEAN CORPUSCULAR VOLUME 86.5 fl (80.0-96.0); PLATELET COUNT, AUTOMATED 229 10^3/uL (150-450); RED BLOOD COUNT 3.27 10^6/uL (4.00-5.40)
[2020-11-23 06:06] LABS: WHITE BLOOD COUNT 10.5 10^3/uL (4.0-10.0)
[2020-11-23] MEDS: SODIUM CHLORIDE 0.9% INJ 10 ML SYR IV SCH ×2 (06:14→17:21)
[2020-11-23 06:17] LABS: INR 2.05; PROTHROMBIN TIME 23.6 SECONDS (12.7-14.5)
[2020-11-23 06:23] VITALS: BP 148/62
[2020-11-23 06:30] LABS: BLOOD UREA NITROGEN 25 MG/DL (7-18); C REACTIVE PROTEIN QUANTITATIV 4.24 MG/DL (0.00-0.30); CALCIUM LEVEL 8.3 MG/DL (8.8-10.2); CARBON DIOXIDE LEVEL 28 MEQ/L (21-32); CHLORIDE LEVEL 99 MEQ/L (98-107); CREATININE FOR GFR 0.91 MG/DL (0.55-1.30); GLOMERULAR FILTRATION RATE > 60.0 (>45); GLUCOSE, FASTING 145 MG/DL (70-100); MAGNESIUM LEVEL 1.8 MG/DL (1.8-2.4); POTASSIUM SERUM 4.1 MEQ/L (3.5-5.1); SODIUM LEVEL 134 MEQ/L (136-145)
[2020-11-23 06:46] LABS: EOSINOPHILS 1 % (0-3); LYMPHOCYTES 16 % (16-44); METAMYELOCYTES 2 % (0-0); MONOCYTES 7 % (0-5); MYELOCYTES 1 % (0-0); NEUTROPHILS 71 % (28-66)
[2020-11-23 06:47] LABS: ANISOCYTOSIS 1+; PLATELET ESTIMATE NORMAL (NORMAL); POIKILOCYTOSIS 1+
--- NOTE | 2020-11-23 09:40 | IPNPDOC ---
Text Note Date of Service The patient was seen on 11/23/20. NOTE Postop day 2, status post right above-knee amputation. The patient is doing well. Pain control is adequate, on the current pain medication On examination: She is awake alert and appropriately responsive. Not in acute distress. Afebrile vital signs stable. Right thigh dressing is clean dry and intact. The TIKI drain is 40 mL since yesterday, more serous today. Labs noted. White count improved, hemoglobin stable. INR-2.02 Medications noted: On Lovenox-therapeutic Of antibiotics as per ID recommendation Impression/plan: Follow INR tomorrow morning, and plan for drain removal, if drainage is still less, and her INR is less than 2. Physical therapy Discussed plan of care, the patient as well as Dr. Dudley. MIRIAM,Radha, I+O Radha PINEDA, I+O Laboratory Tests 11/23/20 05:48 Vital Signs Date Time Temp Pulse Resp B/P (MAP) Pulse Ox O2 Delivery O2 Flow Rate FiO2 11/23/20 06:23 98.4 62 18 148/62 (90) 100 Room Air I&O- Last 24 Hours up to 6 AM 11/23/20 05:59 Intake Total 970 ml Output Total 1280 ml Balance -310 ml Kiah Venegas MD Nov 23, 2020 09:40
[2020-11-23] MEDS: HumaLOG INSULIN (NovoLOG) PER UNIT SC SCH ×4 (10:18→21:00)
[2020-11-23] MEDS: ENOXAPARIN 80MG/0.8ML SYRINGE (J1650 PER 10MG) SC SCH ×2 (10:19→20:18)
[2020-11-23] MEDS: PANTOPRAZOLE 40MG TAB (PROTONIX) PO SCH (10:21)
[2020-11-23] MEDS: ASPIRIN 81MG ENTERIC TABLET PO SCH (10:21)
[2020-11-23] MEDS: FEBUXOSTAT 40 MG TABLET (ULORIC) PO SCH (10:21)
[2020-11-23] MEDS: SENOKOT S TAB PO SCH ×2 (10:21→20:15)
[2020-11-23] MEDS: ASCORBIC ACID 500 MG TAB PO SCH (10:21)
[2020-11-23] MEDS: ATORVASTATIN 20 MG TAB PO SCH (10:21)
[2020-11-23] MEDS: CARVedilol 12.5 MG TAB PO SCH ×2 (10:22→20:17)
[2020-11-23] MEDS: BUMETANIDE 1 MG TAB PO SCH (10:22)
[2020-11-23] MEDS: NYSTATIN 100,000 UNITS/GM TOPICAL PWD 15 GM TOP SCH (10:23)
--- NOTE | 2020-11-23 10:28 | IPNPDOC ---
Text Note Date of Service The patient was seen on 11/23/20. NOTE Subjective: Patient is a 65-year-old female with a PMHx of HTN, CAD, Chronic A. fib, CHF, PVD, DLP, DM2, Gout, Vertigo, GERD who presented to the ER with complaints of infected R heel wound. Patient was admitted to the hospitalist service for further evaluation and treatment. Podiatry and ID were called on consultation. Patient's hospital course is fairly complicated. Initially patient had podiatry intervention of her right foot followed by vascular intervention with angioplasty. Patient was on prolonged antibiotics for a osteomyelitis. Her hospital course was complicated with an acute CVA with residual left-sided weakness. Patient had failed to improve with IV antibiotics after surgery was called for further evaluation and patient ultimately underwent a right-sided duvac-xfk-elsy amputation. Patient was seen and examined at the bedside. Patient is not in any acute distress. Denies any pain of her right leg stump. Patient still appears slightly depressed. Denies any nausea, vomiting, abdominal pain, diarrhea, or urinary discomfort. Denies any chest pain, shortness breath or palpitations. Objective: Vitals (See below) General: Again, patient is sitting up in bed watching television appears to be comfortable, not in any acute distress, is awake, alert, oriented to person, place and time HEENT: Atraumatic and normocephalic CVS: +S1S2 Lungs: There appears to be fair air entry bilaterally without any auscultated e vidence of crackles, wheezing or rhonchi Abdomen: Again, her abdomen is soft without any distention or tenderness Extremities: Right lower extremity with pmyyz-ind-hkiw amputation TIKI drain present, LLE without edema Imaging: Extremity CT 10/05: 1. There is a large soft tissue ulceration defect seen in the medial heel pad of the right foot, best seen on image 108 of series 303. 2. Medial to the soft tissue defect there is a fluid and gas collection, likely an abscess, measuring 2.8 x 2.1 cm transversely on image 61 of series 302 and measuring 1.6 cm in craniocaudal dimension on image 104 of series 303. 3. The bony cortical outline and marrow defect underlying the soft tissue defect are suggestive of acute osteomyelitis on image 50 of series 302. 4. No acute fractures. 5. Chronic calcific enthesopathy is seen in the proximal Achilles on image 6 of series 302. Foot XR 10/07: Postsurgical changes at the posterior aspect of calcaneal process. No immediate complication is evident. Head CT 10/20: Mild generalized volume loss. No acute intracranial abnormality. CTA head 10/20: 1. Occluded right middle cerebral artery proximally. 2. Corresponding hypodensity in the right middle cerebral artery territory suggestive of acute infarct. No acute hemorrhage. CXR 11/03: Area of increased density in the right apex should be evaluated further with PA and lateral views. Slight cardiac enlargement. No evidence of failure or pneumonia. PICC line in place with tip in superior vena cava. Carotid Vascular US 10/20: According to the SRU criteria there is less than 50% stenosis of the internal carotid artery bilaterally. This is secondary to both calcified and noncalcified plaque formation CT Head 10/20: 1. There has been no change since a study done earlier in the day. No interval hemorrhage. 2. Minimal chronic ischemic white matter change and atrophy with ill-defined areas of slightly decreased attenuation in the right cerebral hemisphere centrally and subcortical parietal lobe which are unchanged. ECHO 10/20: 1. Study is of acceptable technical quality; underlying atrial fibrillation and ventricular pacing. 2. Normal LV size with moderate left ventricular hypertrophy and estimated LVEF of 45 to 50%. Septal wall motion abnormality likely related to pacing. 3. No hemodynamically significant aortic valvular disease in spite of prominent valvular sclerosis. 4. Mild to moderate mitral insufficiency. 5. Elevated central venous pressure and mild pulmonary hypertension. 6. Severe biatrial enlargement. 7. Suspicion for left to right shunt across atrial septum based on color Doppler imaging. 8. "Negative Bubble Study." Esophageal XR 10/21: The patient is able to be given all consistencies performed today. However, there is an increase risk with ingestion of all food because of delayed triggering and pooling in the vallecula. CT head 10/21: New area of abnormal decreased attenuation as described above consistent with an acute nonhemorrhagic infarction. MRI examination of the brain is recommended. CT head 10/22: Who ventricular nucleus and external capsule nonhemorrhagic infarct showing slight increase when compared with yesterday's examination. No evidence of hemorrhage or mass effect. CXR 10/22: Stable cardiomegaly. Cardiac electrodes remain in place Prominent lung markings -- perhaps gyav-oa-jqfxkrzd vascular congestion. Diffuse interstitial pneumonitis cannot be excluded. Clinical correlation is needed. Follow-up is suggested, as symptoms warrant. CXR 10/25: 1. There is moderate congestive change with moderate pulmonary edema. 2. Mild left basilar atelectasis or infiltrate. Foot XR 11/06: Soft tissue and bony defect along the posterior aspect of the foot involving calcaneus. Esophagus XR 11/11: Flash penetration as described above, a detailed report will be provided by speech pathology. 3.3 minutes of fluoroscopy time was utilized for this procedure. Some fluoroscopic images are performed with last image hold technology. These images require no additional radiation CT Head 11/11: Again noted is a subacute infarction in the distribution of the right lenticulostriate arteries. There are no complications evident. No significant change. Shoulder XR 11/16: No evidence of fracture or dislocation. There is arthritis of the acromioclavicular and glenohumeral joints. Arterial US 11/18: Occlusion distal right superficial femoral artery and proximal popliteal artery with reconstitution of the distal popliteal artery. Very slow flow in the distal calf arteries at the ankle. Assessment and plan: Infected RLE heel ulcer with acute osteomyelitis of the calcaneum; in the setting of vascular compromise; s/p R AKA - Dressing in place and intact, TIKI drain present and draining - Leukocytosis - down trending / CRP continues to improve - Wound cultures 10/05: Escherichia coli, Morganella morganii, Enterococcus faecalis, MRSA - Wound cultures 10/07: Morganella morganii, Escherichia coli, Enterococcus faecalis - Wound culture 11/14: Pseudomonas aeruginosa - s/p Posterior resection of the right calcaneum on 10/07/[address] Bone - s/p Vascular intervention or R SFA angioplasty on 10/12/[address] Maya - s/p R AKA on 11/21/[address] Venegas; plans to remove TIKI drain 11/24 If INR is permissive - Imaging noted above - Podiatry, Vascular surgery, Interventional radiology, and infectious disease on consultation - s/p Antibiotic therapy; s/p Levaquin; Completed Zosyn (6 week course) - c/w PT and OT; will likely require rehabilitation moving forward Acute right MCA stroke with left sided weakness - Patient had code stroke called on 8/10 AM - Imaging noted above; Unable to get MRI 2/2 PM - c/w ASA 81 - c/w Lovenox therapeutic; will resume normal NOAC tomorrow evening if TIKI drain is removed / after discussion with vascular - c/w Atorvastatin 80 - Neurology was consulted; appreciated their input Chronic Systolic CHF - No evidence of decompensation / fluid overload - Patient remains saturating at 96% on room air - s/p AICD / Biventricular pacing - c/w Bumetanide Dysphagia - c/w Speech therapy recommendations s/p Troponin elevation - likely 2/2 demand ischemia / NSTEMI (Type II) - No chest pain, SOB or palpitations - Troponin has normalized - ECHO Noted above - Serial EKGs have shown no significant change - c/w Carvedilol, ASA 81 - c/w Lovenox therapeutic; will resume normal NOAC tomorrow evening if TIKI drain is removed / after discussion with vascular s/p Gram-negative bacteremia - Blood cultures 10/05: (1 of 2) Morganella Morganii - Blood cultures 10/06: Negative at 5 days - s/p Antibiotic therapy Anemia - s/p 3 units PRBC - Hg stable IDDM2 - c/w ISS and Levemir HTN - BP well controlled - c/w Carvedilol, Bumetanide, Lisinopril, Amlodipine Chronic Atrial fibrillation - c/w rate control with Carvedilol - c/w Lovenox therapeutic; will resume normal NOAC tomorrow evening if TIKI drain is removed / after discussion with vascular DLP - c/w Gemfibrozil Gout - c/w Febuxostat CKD3 - Cr at baseline Neuropathy - c/w Amitriptyline GI prophylaxis - c/w Protonix DVT prophylaxis - c/w Lovenox therapeutic; will resume normal NOAC tomorrow evening if TIKI drain is removed / after discussion with vascular Disposition: - Anticipate TIKI drain removal tomorrow - Patient will likely need rehabilitation moving forward VSRadha, I+O VSRadha, I+O Laboratory Tests 11/23/20 05:48 Vital Signs Date Time Temp Pulse Resp B/P (MAP) Pulse Ox O2 Delivery O2 Flow Rate FiO2 11/23/20 06:23 98.4 62 18 148/62 (90) 100 Room Air I&O- Last 24 Hours up to 6 AM 11/23/20 06:00 Intake Total 870 ml Output Total 930 ml Balance -60 ml EMILY SOTO MD Nov 23, 2020 10:28
[2020-11-23 14:00] VITALS: BP 132/64
[2020-11-23] MEDS: MORPHINE 2 MG/ML 1ML VIAL (J2270) IV PRN ×2 (14:18→20:16)
[2020-11-23] MEDS: SODIUM CHLORIDE 0.9% INJ 10 ML SYR IV PRN ×2 (14:20→20:19)
[2020-11-23] MEDS: FLUCONAZOLE 50MG TABLET PO SCH (18:11)
[2020-11-23] MEDS: oxyCODONE 5MG TAB PO PRN (18:12)
[2020-11-23] MEDS: AMITRIPTYLINE 50 MG TAB PO SCH (20:15)
[2020-11-23] MEDS: ACETAMINOPHEN TAB 650MG DOSE (2X325MG) PO PRN (23:29)
[2020-11-24] MEDS: MORPHINE 2 MG/ML 1ML VIAL (J2270) IV PRN ×4 (00:53→21:06)
[2020-11-24] MEDS: SODIUM CHLORIDE 0.9% INJ 10 ML SYR IV PRN ×3 (00:56→21:16)
[2020-11-24] MEDS: SODIUM CHLORIDE 0.9% INJ 10 ML SYR IV SCH ×2 (05:41→18:00)
[2020-11-24 06:00] VITALS: BP 127/69
[2020-11-24 06:01] LABS: HEMOGLOBIN 8.7 g/dl (12.0-15.5); MEAN CORPUSCULAR HEMOGLOBIN 27.8 pg (27.0-33.0); MEAN CORPUSCULAR HGB CONC 32.2 g/dl (32.0-36.5); MEAN CORPUSCULAR VOLUME 86.3 fl (80.0-96.0); PLATELET COUNT, AUTOMATED 220 10^3/uL (150-450); RED BLOOD COUNT 3.13 10^6/uL (4.00-5.40)
[2020-11-24 06:02] LABS: WHITE BLOOD COUNT 10.5 10^3/uL (4.0-10.0)
[2020-11-24 06:20] LABS: INR 1.84; PROTHROMBIN TIME 21.7 SECONDS (12.7-14.5)
[2020-11-24 06:29] LABS: BLOOD UREA NITROGEN 26 MG/DL (7-18); C REACTIVE PROTEIN QUANTITATIV 3.84 MG/DL (0.00-0.30); CALCIUM LEVEL 8.1 MG/DL (8.8-10.2); CARBON DIOXIDE LEVEL 30 MEQ/L (21-32); CHLORIDE LEVEL 100 MEQ/L (98-107); GLOMERULAR FILTRATION RATE > 60.0 (>45); GLUCOSE, FASTING 123 MG/DL (70-100); MAGNESIUM LEVEL 1.7 MG/DL (1.8-2.4); POTASSIUM SERUM 4.5 MEQ/L (3.5-5.1); SODIUM LEVEL 133 MEQ/L (136-145)
[2020-11-24 07:12] LABS: BASOPHILS 1 % (0-1); EOSINOPHILS 2 % (0-3); LYMPHOCYTES 29 % (16-44); MONOCYTES 7 % (0-5); NEUTROPHILS 61 % (28-66); PLATELET ESTIMATE NORMAL (NORMAL); POLYCHROMASIA 1+
[2020-11-24] MEDS: PANTOPRAZOLE 40MG TAB (PROTONIX) PO SCH (09:45)
[2020-11-24] MEDS: MAGNESIUM OXIDE 400MG TAB (MAG-OX) PO SCH (09:46)
[2020-11-24] MEDS: ASCORBIC ACID 500 MG TAB PO SCH (09:47)
[2020-11-24] MEDS: FEBUXOSTAT 40 MG TABLET (ULORIC) PO SCH (09:47)
[2020-11-24] MEDS: ASPIRIN 81MG ENTERIC TABLET PO SCH (09:47)
[2020-11-24] MEDS: FLUCONAZOLE 50MG TABLET PO SCH (09:48)
[2020-11-24] MEDS: BUMETANIDE 1 MG TAB PO SCH (09:48)
[2020-11-24] MEDS: ATORVASTATIN 20 MG TAB PO SCH (09:48)
[2020-11-24] MEDS: SENOKOT S TAB PO SCH ×2 (09:48→21:05)
[2020-11-24] MEDS: CARVedilol 12.5 MG TAB PO SCH ×2 (09:49→21:07)
[2020-11-24] MEDS: ENOXAPARIN 80MG/0.8ML SYRINGE (J1650 PER 10MG) SC SCH (09:49)
[2020-11-24] MEDS: HumaLOG INSULIN (NovoLOG) PER UNIT SC SCH ×4 (09:49→21:00)
[2020-11-24] MEDS: oxyCODONE 5MG TAB PO PRN (09:50)
--- NOTE | 2020-11-24 10:35 | IPN ---
PROGRESS NOTE DATE: 11/23/2020 SUBJECTIVE: Analisa is sitting up and watching TV in no acute distress. She is status post right above knee amputation, postop day 2. She is doing fairly well, pain is under control. She still has a Landis catheter. She denies any urinary symptoms. Urine culture grew yeast-like organisms. More than [id number] copies. LABORATORY: White count is 10.5, hemoglobin 9, hematocrit 28.3, platelets 229, 71% neutrophils, 2% bands, 16% lymphocytes. Sodium 134, potassium 4.1, chloride 99, bicarbonate 28, BUN 25, creatinine 0.91, glucose 95, calcium 8.3, magnesium 1.8. C-reactive protein 4.24. ASSESSMENT: 1. Maia, possible urinary tract infection, secondary urinary retention and hematuria. The patient did not have any fever or other symptoms, but we did give her a trial of voiding and she was not able to void, could be related to the maia, but could also be related to her stroke and diabetes. PLAN: Will give her a trial of Diflucan 150 mg daily for 7 days. She should have another trial of voiding done [facility]. She does not need a chronic Landis catheter. The case has been discussed with Dr. Dudley, who has agreed with the plan. Infectious disease signed off.
--- NOTE | 2020-11-24 12:45 | IPNPDOC ---
Text Note Date of Service The patient was seen on 11/24/20. NOTE Postop day 3, status post right above-knee amputation. The patient is doing well. She is not in acute distress. Pain control adequate. Physical therapy is on board, and she is slow to do physical therapy. She has urinary retention, with possible UTI with candidiasis, for which she was started on on Diflucan for 7 days, as per infectious diseases services. On examination She is awake alert and appropriately responsive. She is afebrile, stable vital signs Right AKA TIKI drain was 20 mL yesterday, and 40 mL of clotted blood today. INR of 1.8. She is being bridged with therapeutic Lovenox. Other labs are stable. Right AKA dressing removed. The TIKI drain was milked-with extrusion of clots. The drain was clotted. Hence it was discontinued. The incision was clean, and intact with minimal drainage. New dressing applied followed by Tubigrip. Plan: Suggest holding Lovenox tonight, and reassessing the drainage from the stump tomorrow morning, before resuming anticoagulation. If no significant drainage in the next 24 hours-she may be transitioned to DOAC's tomorrow morning. Discussed plan of care, with the patient's nurse Divina as well as with the hospitalist Dr. Johnson. Plan of care also discussed with her son at the bedside Patient may continue physical therapy Prosthetics: to evaluate and consider for stump supervisor hide house VS,Fishbone, I+O VS, Fishbone, I+O Laboratory Tests 11/24/20 05:42 Vital Signs Date Time Temp Pulse Resp B/P (MAP) Pulse Ox O2 Delivery O2 Flow Rate FiO2 11/24/20 12:15 20 11/24/20 09:47 61 132/64 11/24/20 06:00 97.4 98 Room Air I&O- Last 24 Hours up to 6 AM 11/24/20 06:00 Intake Total 1090 ml Output Total 1493 ml Balance -403 ml Kiah Venegas MD Nov 24, 2020 12:45
[2020-11-24 14:00] VITALS: BP 132/66
--- NOTE | 2020-11-24 17:33 | IPNPDOC ---
Text Note Date of Service The patient was seen on 11/24/20. NOTE Subjective: -Complaining for fantom limb pain -nursing noted bloody drainage in TIKI drain this AM -Spoke with vascular, to hold lovenox with goal of transitioning to miguel veloz Objective: Vitals:See below General: Not in any acute distress, is awake, alert, oriented to person, place and time, visiting with son HEENT: Atraumatic and normocephalic CVS: irregularly irregular this morning, no noted murmur Lungs: There appears to be fair air entry bilaterally without any auscultated evidence of crackles, wheezing or rhonchi Abdomen: Normoactive sounds, soft without any distention or tenderness Extremities: Right lower extremity with [id number] amputation TIKI drain present, LLE without edema Labs: reviewed Imaging: Extremity CT 10/05: 1. There is a large soft tissue ulceration defect seen in the medial heel pad of the right foot, best seen on image 108 of series 303. 2. Medial to the soft tissue defect there is a fluid and gas collection, likely an abscess, measuring 2.8 x 2.1 cm transversely on image 61 of series 302 and measuring 1.6 cm in craniocaudal dimension on image 104 of series 303. 3. The bony cortical outline and marrow defect underlying the soft tissue defect are suggestive of acute osteomyelitis on image 50 of series 302. 4. No acute fractures. 5. Chronic calcific enthesopathy is seen in the proximal Achilles on image 6 of series 302. Foot XR 10/07: Postsurgical changes at the posterior aspect of calcaneal process. No immediate complication is evident. Head CT 10/20: Mild generalized volume loss. No acute intracranial abnormality. CTA head 10/20: 1. Occluded right middle cerebral artery proximally. 2. Corresponding hypodensity in the right middle cerebral artery territory suggestive of acute infarct. No acute hemorrhage. CXR 11/03: Area of increased density in the right apex should be evaluated further with PA and lateral views. Slight cardiac enlargement. No evidence of failure or pneumonia. PICC line in place with tip in superior vena cava. Carotid Vascular US 10/20: According to the SRU criteria there is less than 50% stenosis of the internal carotid artery bilaterally. This is secondary to both calcified and noncalcified plaque formation CT Head 10/20: 1. There has been no change since a study done earlier in the day. No interval hemorrhage. 2. Minimal chronic ischemic white matter change and atrophy with ill-defined areas of slightly decreased attenuation in the right cerebral hemisphere centrally and subcortical parietal lobe which are unchanged. ECHO 10/20: 1. Study is of acceptable technical quality; underlying atrial fibrillation and ventricular pacing. 2. Normal LV size with moderate left ventricular hypertrophy and estimated LVEF of 45 to 50%. Septal wall motion abnormality likely related to pacing. 3. No hemodynamically significant aortic valvular disease in spite of prominent valvular sclerosis. 4. Mild to moderate mitral insufficiency. 5. Elevated central venous pressure and mild pulmonary hypertension. 6. Severe biatrial enlargement. 7. Suspicion for left to right shunt across atrial septum based on color Doppler imaging. 8. "Negative Bubble Study." Esophageal XR 10/21: The patient is able to be given all consistencies performed today. However, there is an increase risk with ingestion of all food because of delayed triggering and pooling in the vallecula. CT head 10/21: New area of abnormal decreased attenuation as described above consistent with an acute nonhemorrhagic infarction. MRI examination of the brain is recommended. CT head 10/22: Who ventricular nucleus and external capsule nonhemorrhagic infarct showing slight increase when compared with yesterday's examination. No evidence of hemorrhage or mass effect. CXR 10/22: Stable cardiomegaly. Cardiac electrodes remain in place Prominent lung markings -- perhaps [id number] vascular congestion. Diffuse interstitial pneumonitis cannot be excluded. Clinical correlation is needed. Follow-up is suggested, as symptoms warrant. CXR 10/25: 1. There is moderate congestive change with moderate pulmonary edema. 2. Mild left basilar atelectasis or infiltrate. Foot XR 11/06: Soft tissue and bony defect along the posterior aspect of the foot involving calcaneus. Esophagus XR 11/11: Flash penetration as described above, a detailed report will be provided by speech pathology. 3.3 minutes of fluoroscopy time was utilized for this procedure. Some fluoroscopic images are performed with last image hold technology. These images require no additional radiation CT Head 11/11: Again noted is a subacute infarction in the distribution of the right lenticulostriate arteries. There are no complications evident. No significant change. Shoulder XR 11/16: No evidence of fracture or dislocation. There is arthritis of the acromioclavicular and glenohumeral joints. Arterial US 11/18: Occlusion distal right superficial femoral artery and proximal popliteal artery with reconstitution of the distal popliteal artery. Very slow flow in the distal calf arteries at the ankle. Assessment: 65-year-old Kyrgyz speaking W with a PMHx of HTN, CAD, Chronic A. fib, CHF, PVD, DLP, DM2, Gout, Vertigo, GERD who presented to the ER with complaints of infected R heel wound who ultimately had an AKA after failed debridement and angioplasty and antibiotics, who is now recovering with course c/b R MCA stroke. Infected RLE heel ulcer with acute osteomyelitis of the calcaneum; in the setting of vascular compromise; s/p R AKA - Dressing in place and intact, TIKI had bloody drainage this AM - Leukocytosis - down trending / CRP continues to improve - Wound cultures 10/05: Escherichia coli, Morganella morganii, Enterococcus faecalis, MRSA - Wound cultures 10/07: Morganella morganii, Escherichia coli, Enterococcus faecalis - Wound culture 11/14: Pseudomonas aeruginosa - s/p Posterior resection of the right calcaneum on 10/07/[address] Bone - s/p Vascular intervention or R SFA angioplasty on 10/12/[address] Maya - s/p R AKA on 11/21/[address] Venegas; plans to remove TIKI drain 11/24 If INR is permissive - Imaging noted above - Podiatry, Vascular surgery, Interventional radiology, and infectious disease on consultation - s/p Antibiotic therapy; s/p Levaquin; Completed Zosyn (6 week course) - c/w PT and OT; will require rehabilitation moving forward Acute right MCA stroke with left sided weakness - Patient had code stroke called on 10/20 AM - Imaging noted above; Unable to get MRI 2/2 PPM - c/w ASA 81 - Hold Lovenox this PM and tomorrow AM, with plan to switch to NOAC tomorrow morning, after discussion with vascular - c/w Atorvastatin 80 - Neurology was consulted; appreciated their input Chronic Systolic CHF - No evidence of decompensation / fluid overload - Patient remains saturating at 96% on room air - s/p AICD / Biventricular pacing - c/w Bumetanide Dysphagia - c/w Speech therapy recommendations s/p Troponin elevation - likely 2/2 demand ischemia / NSTEMI (Type II) - No chest pain, SOB or palpitations - Troponin has normalized - ECHO Noted above - Serial EKGs have shown no significant change - c/w Carvedilol, ASA 81 - Hold Lovenox this PM and tomorrow AM, with plan to switch to NOAC tomorrow morning, after discussion with vascular s/p Gram-negative bacteremia - Blood cultures 10/05: (1 of 2) Morganella Morganii - Blood cultures 10/06: Negative at 5 days - s/p Antibiotic therapy Anemia - s/p 3 units PRBC - Hg stable IDDM2 - c/w ISS and Levemir HTN - BP well controlled - c/w Carvedilol, Bumetanide, Lisinopril, Amlodipine Chronic Atrial fibrillation - c/w rate control with Carvedilol - Hold Lovenox this PM and tomorrow AM, with plan to switch to NOAC tomorrow morning, after discussion with vascular DLP - c/w Gemfibrozil Gout - c/w Febuxostat CKD3 - Cr at baseline Neuropathy - c/w Amitriptyline GI prophylaxis - c/w Protonix DVT prophylaxis - Hold Lovenox this PM and tomorrow AM, with plan to switch to NOAC tomorrow morning, after discussion with vascular Disposition: - Patient will need rehabilitation moving forward Radha PINEDA, I+O VSRadha, I+O Laboratory Tests 11/24/20 05:42 Vital Signs Date Time Temp Pulse Resp B/P (MAP) Pulse Ox O2 Delivery O2 Flow Rate FiO2 11/24/20 16:30 20 11/24/20 14:00 97.9 61 132/66 (88) 97 Room Air I&O- Last 24 Hours up to 6 AM 11/24/20 06:00 Intake Total 1090 ml Output Total 1493 ml Balance -403 ml TAYLA KINNEY MD Nov 24, 2020 17:33
[2020-11-24] MEDS: AMITRIPTYLINE 50 MG TAB PO SCH (21:06)
[2020-11-24 22:00] VITALS: BP 131/66
[2020-11-25] VITALS (9 sets, daily range): BP systolic 119–138; BP diastolic 59–68
[2020-11-25] MEDS: oxyCODONE 5MG TAB PO PRN ×2 (02:06→18:54)
[2020-11-25] MEDS: SODIUM CHLORIDE 0.9% INJ 10 ML SYR IV SCH ×3 (06:05→17:23)
[2020-11-25 06:42] LABS: BASO # 0.1 10^3/uL (0.0-0.2); BASO % 0.5 % (0.0-1.0); EOS # 0.2 10^3/uL (0.0-0.5); HEMATOCRIT 24.8 % (36.0-47.0); HEMOGLOBIN 7.9 g/dl (12.0-15.5); LYMPH # 2.2 10^3/uL (1.5-5.0); LYMPH % 20.8 % (24.0-44.0); MEAN CORPUSCULAR HEMOGLOBIN 27.2 pg (27.0-33.0); MEAN CORPUSCULAR HGB CONC 31.9 g/dl (32.0-36.5); MEAN CORPUSCULAR VOLUME 85.5 fl (80.0-96.0); MONO # 1.4 10^3/uL (0.0-0.8); MONO % 13.3 % (2.0-8.0); NEUTROPHILS # 6.6 10^3/uL (1.5-8.5); NEUTROPHILS % 62.3 % (36.0-66.0); PLATELET COUNT, AUTOMATED 232 10^3/uL (150-450); WHITE BLOOD COUNT 10.6 10^3/uL (4.0-10.0)
[2020-11-25 06:54] LABS: INR 1.45; PROTHROMBIN TIME 18.1 SECONDS (12.7-14.5)
[2020-11-25 07:00] LABS: BLOOD UREA NITROGEN 28 MG/DL (7-18); C REACTIVE PROTEIN QUANTITATIV 3.86 MG/DL (0.00-0.30); CALCIUM LEVEL 8.1 MG/DL (8.8-10.2); CARBON DIOXIDE LEVEL 29 MEQ/L (21-32); CHLORIDE LEVEL 98 MEQ/L (98-107); CREATININE FOR GFR 0.69 MG/DL (0.55-1.30); GLOMERULAR FILTRATION RATE > 60.0 (>45); GLUCOSE, FASTING 134 MG/DL (70-100); MAGNESIUM LEVEL 1.9 MG/DL (1.8-2.4); POTASSIUM SERUM 4.2 MEQ/L (3.5-5.1); SODIUM LEVEL 133 MEQ/L (136-145)
[2020-11-25] MEDS ORDERED: GABAPENTIN 100 MG CAP PO SCH (09:00)
[2020-11-25] MEDS: HumaLOG INSULIN (NovoLOG) PER UNIT SC SCH ×4 (10:00→21:00)
[2020-11-25] MEDS: CARVedilol 12.5 MG TAB PO SCH ×2 (10:02→21:25)
[2020-11-25] MEDS: ATORVASTATIN 20 MG TAB PO SCH (10:03)
[2020-11-25] MEDS: PANTOPRAZOLE 40MG TAB (PROTONIX) PO SCH (10:03)
[2020-11-25] MEDS: SENOKOT S TAB PO SCH ×2 (10:03→21:25)
[2020-11-25] MEDS: BUMETANIDE 1 MG TAB PO SCH (10:03)
[2020-11-25] MEDS: FEBUXOSTAT 40 MG TABLET (ULORIC) PO SCH (10:03)
[2020-11-25] MEDS: ASCORBIC ACID 500 MG TAB PO SCH (10:03)
[2020-11-25] MEDS: ASPIRIN 81MG ENTERIC TABLET PO SCH (10:03)
[2020-11-25] MEDS: FLUCONAZOLE 50MG TABLET PO SCH (10:04)
[2020-11-25] MEDS: SODIUM CHLORIDE 0.9% INJ 10 ML SYR IV PRN ×2 (11:29→16:23)
[2020-11-25] MEDS: MORPHINE 2 MG/ML 1ML VIAL (J2270) IV PRN (11:29)
--- NOTE | 2020-11-25 12:24 | IPNPDOC ---
Text Note Date of Service The patient was seen on 11/25/20. NOTE Postop day 4, status post right above-knee amputation. The patient is doing well. Pain control is adequate. On examination: She is afebrile with stable vital signs. Right AKA dressing was changed. Residual sanguinous drainage, from the drain removal site. Serosanguineous drainage noted on yesterday's dressing from the incision. No evidence of gross bleeding or hematoma. Incision is intact and the flaps are viable. Dressing changed. Labs noted. Hemoglobin is drifted down to 7.9 from 8.7 yesterday. No leukocytosis. INR 1.45. Blood chemistry stable Assessment: Patient is stable. There is no evidence of active bleeding, from the right AKA stump. Her hemoglobin seems to have drifted down, from the intraoperative blood loss Plan: to transfuse 1 unit of blood - per the hospitalist -today. Anticoagulation may be resumed-from today evening. Suggest initiation of DOAC's. Plan discussed with hospitalist-Dr. Johnson. If the patient's hemoglobin continues to drift down, and suspect right AKA hematoma-suggest holding anticoagulation, and further evaluate - with possible imaging of the stump. VS,Fishbone, I+O VS, Fishbone, I+O Laboratory Tests 11/25/20 06:15 Vital Signs Date Time Temp Pulse Resp B/P (MAP) Pulse Ox O2 Delivery O2 Flow Rate FiO2 11/25/20 11:39 18 11/25/20 10:02 122/62 11/25/20 10:02 61 11/25/20 06:00 97.9 98 Room Air I&O- Last 24 Hours up to 6 AM 11/25/20 06:00 Intake Total 1650 ml Output Total 2265 ml Balance -615 ml Kiah Venegas MD Nov 25, 2020 12:24
--- NOTE | 2020-11-25 12:34 | IPNPDOC ---
Text Note Date of Service The patient was seen on 11/25/20. NOTE Subjective: -Pain is well controlled this AM, sleepy though and received gabapentin for the first time this AM Objective: Vitals:See below General: Not in any acute distress, is awake, alert, oriented to person, place and time, visiting with son HEENT: Atraumatic and normocephalic CVS: irregularly irregular this morning, no noted murmur Lungs: There appears to be fair air entry bilaterally without any auscultated evidence of crackles, wheezing or rhonchi Abdomen: Normoactive sounds, soft without any distention or tenderness Extremities: Right lower extremity with qxlod-wyi-ifyy amputation in dressing, LLE without edema Labs: reviewed WBC 10.6 Hgb 7.9 Platelets 232 CRP 3.86 INR 1.45 Cr. 0.69 Imaging: Extremity CT 10/05: 1. There is a large soft tissue ulceration defect seen in the medial heel pad of the right foot, best seen on image 108 of series 303. 2. Medial to the soft tissue defect there is a fluid and gas collection, likely an abscess, measuring 2.8 x 2.1 cm transversely on image 61 of series 302 and measuring 1.6 cm in craniocaudal dimension on image 104 of series 303. 3. The bony cortical outline and marrow defect underlying the soft tissue defect are suggestive of acute osteomyelitis on image 50 of series 302. 4. No acute fractures. 5. Chronic calcific enthesopathy is seen in the proximal Achilles on image 6 of series 302. Foot XR 10/07: Postsurgical changes at the posterior aspect of calcaneal process. No immediate complication is evident. Head CT 10/20: Mild generalized volume loss. No acute intracranial abnormality. CTA head 10/20: 1. Occluded right middle cerebral artery proximally. 2. Corresponding hypodensity in the right middle cerebral artery territory suggestive of acute infarct. No acute hemorrhage. CXR 11/03: Area of increased density in the right apex should be evaluated further with PA and lateral views. Slight cardiac enlargement. No evidence of failure or pneumonia. PICC line in place with tip in superior vena cava. Carotid Vascular US 10/20: According to the SRU criteria there is less than 50% stenosis of the internal carotid artery bilaterally. This is secondary to both calcified and noncalcified plaque formation CT Head 10/20: 1. There has been no change since a study done earlier in the day. No interval hemorrhage. 2. Minimal chronic ischemic white matter change and atrophy with ill-defined a reas of slightly decreased attenuation in the right cerebral hemisphere centrally and subcortical parietal lobe which are unchanged. ECHO 10/20: 1. Study is of acceptable technical quality; underlying atrial fibrillation and ventricular pacing. 2. Normal LV size with moderate left ventricular hypertrophy and estimated LVEF of 45 to 50%. Septal wall motion abnormality likely related to pacing. 3. No hemodynamically significant aortic valvular disease in spite of prominent valvular sclerosis. 4. Mild to moderate mitral insufficiency. 5. Elevated central venous pressure and mild pulmonary hypertension. 6. Severe biatrial enlargement. 7. Suspicion for left to right shunt across atrial septum based on color Doppler imaging. 8. "Negative Bubble Study." Esophageal XR 10/21: The patient is able to be given all consistencies performed today. However, there is an increase risk with ingestion of all food because of delayed triggering and pooling in the vallecula. CT head 10/21: New area of abnormal decreased attenuation as described above consistent with an acute nonhemorrhagic infarction. MRI examination of the brain is recommended. CT head 10/22: Who ventricular nucleus and external capsule nonhemorrhagic infarct showing slight increase when compared with yesterday's examination. No evidence of hemorrhage or mass effect. CXR 10/22: Stable cardiomegaly. Cardiac electrodes remain in place Prominent lung markings -- perhaps [id number] vascular congestion. Diffuse interstitial pneumonitis cannot be excluded. Clinical correlation is needed. Follow-up is suggested, as symptoms warrant. CXR 10/25: 1. There is moderate congestive change with moderate pulmonary edema. 2. Mild left basilar atelectasis or infiltrate. Foot XR 11/06: Soft tissue and bony defect along the posterior aspect of the foot involving calcaneus. Esophagus XR 11/11: Flash penetration as described above, a detailed report will be provided by speech pathology. 3.3 minutes of fluoroscopy time was utilized for this procedure. Some fluoroscopic images are performed with last image hold technology. These images require no additional radiation CT Head 11/11: Again noted is a subacute infarction in the distribution of the right lenticulostriate arteries. There are no complications evident. No significant change. Shoulder XR 11/16: No evidence of fracture or dislocation. There is arthritis of the acromioclavicular and glenohumeral joints. Arterial US 11/18: Occlusion distal right superficial femoral artery and proximal popliteal artery with reconstitution of the distal popliteal artery. Very slow flow in the distal calf arteries at the ankle. Assessment: 65-year-old Armenian speaking W with a PMHx of HTN, CAD, Chronic A. fib, CHF, PVD, DLP, DM2, Gout, Vertigo, GERD who presented to the ER with complaints of infected R heel wound who ultimately had an AKA after failed debridement and angioplasty and antibiotics, who is now recovering with course c/b R MCA stroke. Infected RLE heel ulcer with acute osteomyelitis of the calcaneum; in the setting of vascular compromise; s/p R AKA - Dressing in place and intact - Leukocytosis and CRP downtrended, today is stable from yesterday - Wound cultures 10/05: Escherichia coli, Morganella morganii, Enterococcus faecalis, MRSA - Wound cultures 10/07: Morganella morganii, Escherichia coli, Enterococcus faecalis - Wound culture 11/14: Pseudomonas aeruginosa - s/p Posterior resection of the right calcaneum on 10/07/[address] Bone - s/p Vascular intervention or R SFA angioplasty on 10/12/[address] Maya - s/p R AKA on 11/21/[address] Venegas - Imaging noted above - Podiatry, Vascular surgery, Interventional radiology, and infectious disease on consultation - s/p Antibiotic therapy; s/p Levaquin; Completed Zosyn (6 week course) - c/w PT and OT; will require rehabilitation moving forward Acute right MCA stroke with left sided weakness - Patient had code stroke called on 810 AM - Imaging noted above; Unable to get MRI 2/2 PPM - c/w ASA 81 - Holding Lovenox with plan to switch to NOAC today after discussion with zana magaña, will give 1u blood and check PM H/H - c/w Atorvastatin 80 - Neurology was consulted; appreciated their input Chronic Systolic CHF - No evidence of decompensation / fluid overload - Patient remains saturating at 96% on room air - s/p AICD / Biventricular pacing - c/w Bumetanide Dysphagia - c/w Speech therapy recommendations s/p Troponin elevation - likely 2/2 demand ischemia / NSTEMI (Type II) - No chest pain, SOB or palpitations - Troponin has normalized - ECHO Noted above - Serial EKGs have shown no significant change - c/w Carvedilol, ASA 81 - Holding Lovenox with plan to switch to NOAC today after discussion with vascular s/p Gram-negative bacteremia - Blood cultures 10/05: (1 of 2) Morganella Morganii - Blood cultures 10/06: Negative at 5 days - s/p Antibiotic therapy Anemia - s/p 3 units PRBC - will give 1u today, hgb is 7.9 - goal >8 IDDM2 - c/w ISS and Levemir HTN - BP well controlled - c/w Carvedilol, Bumetanide, Lisinopril, Amlodipine Chronic Atrial fibrillation - c/w rate control with Carvedilol - Holding Lovenox with a plan switch to NOAC today, after discussion with vascular DLP - c/w Gemfibrozil Gout - c/w Febuxostat CKD3 - Cr at baseline Neuropathy - c/w Amitriptyline GI prophylaxis - c/w Protonix DVT prophylaxis - Holding Lovenox with a plan switch to NOAC today, after discussion with vascular Covid-19 exposure -Asymptomatic at this time -requested covid-19 testing, ordered test -on contact and droplet precautions Disposition: - Patient will need rehabilitation moving forward Radha PINEDA, I+O VSRadha, I+O Laboratory Tests 11/25/20 06:15 Vital Signs Date Time Temp Pulse Resp B/P (MAP) Pulse Ox O2 Delivery O2 Flow Rate FiO2 11/25/20 06:00 97.9 63 16 123/63 (83) 98 Room Air I&O- Last 24 Hours up to 6 AM 11/25/20 06:00 Intake Total 1650 ml Output Total 2265 ml Balance -615 ml TAYLA KINNEY MD Nov 25, 2020 08:53
[2020-11-25] MEDS: MOM 30ML SUSPENSION UDC PO PRN (17:19)
[2020-11-25 17:41] LABS: HEMOGLOBIN 8.8 g/dl (12.0-15.5)
--- NOTE | 2020-11-25 19:10 | IPNPDOC ---
Text Note Date of Service The patient was seen on 11/25/20 at 6.35 pm. NOTE I was called by the ore charger Chey - that the patient was bleeding from the right AKA stump site and there was a large amount of pooled blood noted on the underlying baljit The patient was being repositioned by the nurse aid - who noted the blood. The patient had no complaints otherwise and her pain control was adequate. She received 1 PRBCs today for Hcrt of 24 - her Hcrt improved to 27 after transfusion. Her vitals - BP, pulse, temp and RR were stable throughout the transfusion process (noted every hour during transfusion-per protocol by the RN). Antico agulation was withheld On exam: The patient is awake, alert and appropriately responsive. She is not in acute distress. Mild pallor Afeb, VSS- BP 120s/80s. The right AKA stump dressing was removed. There was slow ongoing oozing from the drain removal site with clotted and unclotted blood on the dressing. The stump swelling has decreased since morning - suggestive of drainage of collected hematoma. Impression: The patient likely had the bleeding postop when her INR was 2.0 on postop Day 2. However the TIKI drain was clotted ( drained 90ml the first day and then 30ml), and hence the blood collected in the stump - with resulting decrease in H/H. The collected blood is likely draining from the TIKI drain site now. Plan: Monitor vitals Labs in am If the patient continues to bleed from the AKA along with drop in H/H and change in vitals - she may require exploration in the OR - for evaluation and control of bleeding. Discussed plan of care with the patient, her RN at bedside and with the patient's son Andre over the phone VS,Radha, I+O VS, Radha, I+O Laboratory Tests 11/25/20 06:15 11/25/20 17:24 Vital Signs Date Time Temp Pulse Resp B/P (MAP) Pulse Ox O2 Delivery O2 Flow Rate FiO2 11/25/20 18:54 16 11/25/20 18:05 98.5 60 120/65 (83) 97 Room Air I&O- Last 24 Hours up to 6 AM 11/25/20 06:00 Intake Total 1650 ml Output Total 2265 ml Balance -615 ml Kiah Venegas MD Nov 25, 2020 19:10
[2020-11-25] MEDS ORDERED: APIXABAN 5 MG TAB (ELIQUIS) PO SCH (21:00)
[2020-11-25] MEDS: AMITRIPTYLINE 50 MG TAB PO SCH (21:25)
[2020-11-25] MEDS: MIRALAX *UNIT DOSE* 17GM PACKET PO PRN (21:38)
[2020-11-26] MEDS: MORPHINE 2 MG/ML 1ML VIAL (J2270) IV PRN ×2 (00:31→16:53)
[2020-11-26] MEDS: SODIUM CHLORIDE 0.9% INJ 10 ML SYR IV SCH ×2 (05:16→18:00)
[2020-11-26 05:34] LABS: HEMATOCRIT 25.7 % (36.0-47.0); HEMOGLOBIN 8.3 g/dl (12.0-15.5); MEAN CORPUSCULAR HGB CONC 32.3 g/dl (32.0-36.5); MEAN CORPUSCULAR VOLUME 86.8 fl (80.0-96.0); PLATELET COUNT, AUTOMATED 248 10^3/uL (150-450); RED BLOOD COUNT 2.96 10^6/uL (4.00-5.40); WHITE BLOOD COUNT 10.6 10^3/uL (4.0-10.0)
[2020-11-26 05:50] LABS: INR 1.43; PARTIAL THROMBOPLASTIN TIME 42.5 SECONDS (25.9-37.0); PROTHROMBIN TIME 17.8 SECONDS (12.7-14.5)
[2020-11-26 06:00] VITALS: BP 101/60
[2020-11-26 06:01] LABS: BLOOD UREA NITROGEN 33 MG/DL (7-18); CALCIUM LEVEL 7.8 MG/DL (8.8-10.2); CARBON DIOXIDE LEVEL 31 MEQ/L (21-32); CHLORIDE LEVEL 96 MEQ/L (98-107); CREATININE FOR GFR 0.71 MG/DL (0.55-1.30); GLOMERULAR FILTRATION RATE > 60.0 (>45); GLUCOSE, FASTING 136 MG/DL (70-100); POTASSIUM SERUM 4.3 MEQ/L (3.5-5.1); SODIUM LEVEL 133 MEQ/L (136-145)
[2020-11-26 08:00] VITALS: BP 88/54
[2020-11-26] MEDS ORDERED: NS 1,000 ML IV ONE (08:10)
[2020-11-26] MEDS ORDERED: fentaNYL 100 MCG/2 ML INJECTION (J3010) As Ordered ONE ×2 (08:32→12:23)
[2020-11-26] MEDS ORDERED: propofoL 200 MG/20 ML VIAL As Ordered ONE (08:32)
[2020-11-26] MEDS ORDERED: MIDAZOLAM INJ 2MG/2ML VIAL (J2250 PER 1MG) As Ordered ONE (08:32)
[2020-11-26] MEDS ORDERED: LIDOCAINE 2% 100MG/5ML SDV (FOR ANES.) As Ordered ONE (08:32)
[2020-11-26] MEDS ORDERED: ROCURONIUM BROMIDE 50 MG/5 ML VIAL As Ordered ONE ×3 (08:32→12:02)
--- NOTE | 2020-11-26 08:43 | IPNPDOC ---
Text Note Date of Service The patient was seen on 11/26/20, at 8 AM.. NOTE Postop day 5, status post right AKA. The patient continues to ooze/bleed from the right AKA stump throughout the night. Her systolic blood pressures were in the 110s in the 120s last night. However today morning her blood pressure was 88 /50mm Hg. She however does not feel dizzy and is awake alert and appropriately responsive. Her hematocrit after blood transfusion yesterday had improved to 27 and has trended down to 25 today morning. Her INR is normal. Her APTT is moderately elevated. Blood chemistry revealed mildly elevated BUN, with decreased chloride and increased bicarb, suggestive of volume depletion. Right AKA stump dressing is soaked with blood and serosanguineous drainage. The patient had 2 bites of oatmeal today. Impression: Ongoing bleeding, from the right above-knee amputation stump, associated with hypotension, and persistently decreasing hematocrit, suggestive of active bleeding. Plan: Emergency exploration in the OR, with control of bleeding. Due to the emergency nature of the procedure, we will have to bypass the n.p.o. status, and proceed with the procedure, as a lifesaving measure. Transfuse 1 FFP and 2 packed RBCs JAMIE. Plan of care discussed with the patient, and her son -over the phone. VS,Dangelobone, I+O VS, Fishbone, I+O Laboratory Tests 11/25/20 17:24 11/26/20 05:35 11/26/20 05:36 Vital Signs Date Time Temp Pulse Resp B/P (MAP) Pulse Ox O2 Delivery O2 Flow Rate FiO2 11/26/20 08:00 98.3 60 18 88/54 (65) 99 Room Air I&O- Last 24 Hours up to 6 AM 11/26/20 06:00 Intake Total 910 ml Output Total 2025 ml Balance -1115 ml Kiah Venegas MD Nov 26, 2020 08:43
[2020-11-26] MEDS ORDERED: NS 500 ML IV ONE (08:50)
[2020-11-26] MEDS: HumaLOG INSULIN (NovoLOG) PER UNIT SC SCH ×4 (08:52→21:00)
[2020-11-26] MEDS: CARVedilol 12.5 MG TAB PO SCH ×2 (08:53→21:17)
[2020-11-26] MEDS: BUMETANIDE 1 MG TAB PO SCH ×2 (08:53→16:41)
[2020-11-26] MEDS: SENOKOT S TAB PO SCH ×2 (09:00→21:16)
[2020-11-26] MEDS: FEBUXOSTAT 40 MG TABLET (ULORIC) PO SCH (09:00)
[2020-11-26] MEDS ORDERED: ceFAZolin 1GM VIAL (J0690 PER 500MG) As Ordered ONE (09:13)
[2020-11-26] MEDS ORDERED: PHENYLephrine 500MCG 5ML (100MCG/ML) SYRINGE As Ordered ONE ×2 (09:34→09:46)
[2020-11-26] MEDS ORDERED: ePHEDrine SULFATE 25 MG/5 ML(5MG/ML) SYRINGE As Ordered ONE (09:39)
[2020-11-26] MEDS ORDERED: VASOPRESSIN INJ 20 UNITS/ML VIAL As Ordered ONE (09:46)
[2020-11-26] MEDS ORDERED: LACRILUBE (AKWA TEARS) OPHTH OINT 3.5 GM As Ordered ONE (10:39)
[2020-11-26] MEDS ORDERED: ONDANSETRON 4MG/2ML VIAL As Ordered ONE (10:52)
[2020-11-26] MEDS ORDERED: ACETAMINOPHEN 1000MG 100ML IV BTL (OFIRMEV) (J0131 PER 10MG) As Ordered ONE (10:58)
--- NOTE | 2020-11-26 11:37 | ROOPDOC ---
[facility], [place] Report Of Operation Report of Operation DATE OF PROCEDURE: 11/26/20 PREPROCEDURE DIAGNOSES: Bleeding from the right above-knee amputation stump POSTPROCEDURE DIAGNOSES: Bleeding from the right above-knee amputation stump, secondary to diffuse venous bleeding, from the muscles of the thigh. No named arterial or venous bleeding PROCEDURE PERFORMED: Exploration of the right above-knee amputation stump, and control of bleeding SURGEON: Kiah Venegas MD INFORMATION SYSTEMS ANALYST: Gloria ANESTHESIA: General, ETT, ESTIMATED BLOOD LOSS: Approximately 100 mL. COMPLICATIONS: None REMARKS: IV fluids 1 L of crystalloids, 1 pack RBCs, and 1 FFP FINDINGS: Diffuse venous ooze, from the raw muscular surface, surrounding the femur bone. About 100 cc of hematoma noted surrounding the bone. No named arterial or venous bleeding. 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 Preoperatively she was on anticoagulation, for atrial fibrillation. Her procedure was performed, when her INR was 1.8. On postop day 2, her INR was 2.02. The patient was noted to have extensive serosanguineous drainage last evening, which persisted to today morning. She was hemodynamically stable yesterday evening and overnight. However the morning her blood pressure decreased to 80s systolic from her usual systolic of 130 mmHg. Her hemoglobin was also significantly drifting down. Hence she was taken up for emergency exploration and control of bleeding. Informed consent was obtained for the patient, for the procedure, after explaining the risk benefits and complications of the procedure, which include but not limited to bleeding, infection, possible need for wound VAC, wound related complications, cardiorespiratory complications, including myocardial infarction, respiratory failure etc. Alternatives to the procedure including nonoperative treatment and its consequences were explained. The patient understood and agreed to the procedure. Also her son Andre was informed about the procedure DESCRIPTION OF PROCEDURE: The patient was currently identified. She was placed supine on the operating room table and general anesthesia was administered. She received 2 g Ancef intravenously as preoperative antibiotic prophylaxis. The right above-knee amputation stump was cleaned and draped in a sterile fashion. A timeout was performed. The sutures and arianne on the stump incision were removed. The superficial and deep fascial sutures were cut, and the incision was completely opened. There was about 100 mL of clotted blood, in the center, surrounding the bone. After evacuating the hematoma, slow venous oozing was noted, from the deep muscular surface, surrounding the femur. There was no arterial bleeding. There was no major named venous bleeding. The incision was irrigated, and extensive hemostasis was achieved with 2-0 Vicryl suture ligatures, as well as cauterization. There was no bleeding from the femur. After confirming adequate hemostasis-the wound was thoroughly irrigated. The incision was then closed in layers. All counts were correct prior to closure. Deep 2-0 Vicryl [id number] sutures were placed, and the muscles surrounding the femur bone were approximated. The superficial fascia was also closed with the 2-0 Vicryl [id number] sutures. Deep dermal sutures were placed to relieve the tension between the flaps. The skin was approximated with 2-0 nylon vertical mattress sutures and skin arianne. Xeroform followed by dry gauze and ABD pads, Kerlix wrap and Devyn wrap replaced over the stump. The patient tolerated the procedure well. She was hemodynamically stable after receiving 1 unit of blood and FFP's. She was extubated and was transferred to the postop recovery room in a stable condition. The procedure and the findings were conveyed to her son over the phone Kiah Venegas MD Nov 26, 2020 11:37
--- NOTE | 2020-11-26 11:41 | POST-OPPD ---
Postoperative Procedure Note Date Of Procedure: Nov 26, 2020 Time Of Procedure: 09:00 PREOPERATIVE DIAGNOSIS: Bleeding from right above-knee amputation stump POSTOPERATIVE DIAGNOSIS: Muscular bleeding from right above-knee amputation stump PROCEDURE: Emergent exploration, and control of bleeding from right above-knee amputation stump SURGEON: Kiah Venegas CONDUCTOR/ENGINEER: Gloria ANESTHESIA: General, ETT, Dr. Arias ESTIMATED BLOOD LOSS: 100 mL FINDINGS: No arterial bleeding noted. Diffuse venous bleeding noted from the raw muscle bundles surrounding the femur. 100 mL of clotted blood noted deep to the muscle SPECIMENS: None COMPLICATIONS: None REPLACED: IV fluids: 1 L of crystalloids, 1 packed RBCs and 1 unit of FFP DRAINS: None POSTOPERATIVE CONDITION: Hemodynamically stable, extubated and transferred to the PACU Kiah Venegas MD Nov 26, 2020 11:41
[2020-11-26] MEDS ORDERED: ceFAZolin SOD 2 GM in IV 1 EA IV SCH (11:55)
[2020-11-26] MEDS: fentaNYL 100 MCG/2 ML INJECTION (J3010) IV PRN ×2 (12:28→12:34)
[2020-11-26] MEDS ORDERED: METOCLOPRAMIDE INJ 10MG/2ML VIAL (J2765 PER 1) IV PRN (12:40)
[2020-11-26] MEDS ORDERED: LR 1,000 ML IV SCH (12:40)
[2020-11-26] MEDS ORDERED: ONDANSETRON 4MG/2ML VIAL IV PRN (12:40)
--- NOTE | 2020-11-26 12:40 | IPNPDOC ---
Text Note Date of Service The patient was seen on 11/26/20. NOTE Subjective: -Yesterday evening had significant stump bleeding noted while being repositioned by supervisor public health nursing. Vitals remained stable, they called vascular surgery and on evaluation and dressing removal, there was slow ongoing oozing from the drain removal site with clotted and unclotted blood on the dressing and she noted that the stump swelling has decreased since the morning suggestive of drainage of collected hematoma. -Anticoagulation was on hold yesterday and remains on hold. -This morning had heavy bleeding again, and was hypotensive to SBP 88, nursing alerted vascular that ordered STA 1FFP and 2u pRBCs and took her to the OR for exploration Objective: Vitals:See below IN OR at present Labs: reviewed WBC 10.6 Hgb 8.3 Platelets 248 INR 1.43 Cr. 0.71 Imaging: Extremity CT 10/05: 1. There is a large soft tissue ulceration defect seen in the medial heel pad of the right foot, best seen on image 108 of series 303. 2. Medial to the soft tissue defect there is a fluid and gas collection, likely an abscess, measuring 2.8 x 2.1 cm transversely on image 61 of series 302 and measuring 1.6 cm in craniocaudal dimension on image 104 of series 303. 3. The bony cortical outline and marrow defect underlying the soft tissue defect are suggestive of acute osteomyelitis on image 50 of series 302. 4. No acute fractures. 5. Chronic calcific enthesopathy is seen in the proximal Achilles on image 6 of series 302. Foot XR 10/07: Postsurgical changes at the posterior aspect of calcaneal process. No immediate complication is evident. Head CT 10/20: Mild generalized volume loss. No acute intracranial abnormality. CTA head 10/20: 1. Occluded right middle cerebral artery proximally. 2. Corresponding hypodensity in the right middle cerebral artery territory sugg estive of acute infarct. No acute hemorrhage. CXR 11/03: Area of increased density in the right apex should be evaluated further with PA and lateral views. Slight cardiac enlargement. No evidence of failure or pneumonia. PICC line in place with tip in superior vena cava. Carotid Vascular US 10/20: According to the SRU criteria there is less than 50% stenosis of the internal carotid artery bilaterally. This is secondary to both calcified and noncalcified plaque formation CT Head 10/20: 1. There has been no change since a study done earlier in the day. No interval hemorrhage. 2. Minimal chronic ischemic white matter change and atrophy with ill-defined areas of slightly decreased attenuation in the right cerebral hemisphere centrally and subcortical parietal lobe which are unchanged. ECHO 10/20: 1. Study is of acceptable technical quality; underlying atrial fibrillation and ventricular pacing. 2. Normal LV size with moderate left ventricular hypertrophy and estimated LVEF of 45 to 50%. Septal wall motion abnormality likely related to pacing. 3. No hemodynamically significant aortic valvular disease in spite of prominent valvular sclerosis. 4. Mild to moderate mitral insufficiency. 5. Elevated central venous pressure and mild pulmonary hypertension. 6. Severe biatrial enlargement. 7. Suspicion for left to right shunt across atrial septum based on color Doppler imaging. 8. "Negative Bubble Study." Esophageal XR 10/21: The patient is able to be given all consistencies performed today. However, there is an increase risk with ingestion of all food because of delayed triggering and pooling in the vallecula. CT head 10/21: New area of abnormal decreased attenuation as described above consistent with an acute nonhemorrhagic infarction. MRI examination of the brain is recommended. CT head 10/22: Who ventricular nucleus and external capsule nonhemorrhagic infarct showing slight increase when compared with yesterday's examination. No evidence of hemorrhage or mass effect. CXR 10/22: Stable cardiomegaly. Cardiac electrodes remain in place Prominent lung markings -- perhaps [id number] vascular congestion. Diffuse interstitial pneumonitis cannot be excluded. Clinical correlation is needed. Follow-up is suggested, as symptoms warrant. CXR 10/25: 1. There is moderate congestive change with moderate pulmonary edema. 2. Mild left basilar atelectasis or infiltrate. Foot XR 11/06: Soft tissue and bony defect along the posterior aspect of the foot involving calcaneus. Esophagus XR 11/11: Flash penetration as described above, a detailed report will be provided by speech pathology. 3.3 minutes of fluoroscopy time was utilized for this procedure. Some fluoroscopic images are performed with last image hold technology. These images require no additional radiation CT Head 11/11: Again noted is a subacute infarction in the distribution of the right luiz ticulostriate arteries. There are no complications evident. No significant change. Shoulder XR 11/16: No evidence of fracture or dislocation. There is arthritis of the acromioclavicular and glenohumeral joints. Arterial US 11/18: Occlusion distal right superficial femoral artery and proximal popliteal artery with reconstitution of the distal popliteal artery. Very slow flow in the distal calf arteries at the ankle. Assessment: 65-year-old Kosovan speaking W with a PMHx of HTN, CAD, Chronic A. fib, CHF, PVD, DLP, DM2, Gout, Vertigo, GERD who presented to the ER with complaints of infected R heel wound who ultimately had an AKA after failed debridement and angioplasty and antibiotics, who is now recovering with course c/b R MCA stroke. Infected RLE heel ulcer with acute osteomyelitis of the calcaneum; in the setting of vascular compromise; s/p R AKA - Dressing in place and intact - Leukocytosis and CRP downtrending - Wound cultures 10/05: Escherichia coli, Morganella morganii, Enterococcus faecalis, MRSA - Wound cultures 10/07: Morganella morganii, Escherichia coli, Enterococcus faec cinthya - Wound culture 11/14: Pseudomonas aeruginosa - s/p Posterior resection of the right calcaneum on 10/07/[address] Bone - s/p Vascular intervention or R SFA angioplasty on 10/12/[address] Maya - s/p R AKA on 11/21/[address] Venegas c/b bleeding in OR today - Imaging noted above - Podiatry, Vascular surgery, Interventional radiology, and infectious disease on consultation - s/p Antibiotic therapy; s/p Levaquin; Completed Zosyn (6 week course) - c/w PT and OT; will require rehabilitation moving forward Acute right MCA stroke with left sided weakness - Patient had code stroke called on 8/10 AM - Imaging noted above; Unable to get MRI 2/2 PPM - c/w ASA 81 - Holding Lovenox with plan to switch to NOAC after stump bleeding is controlled - c/w Atorvastatin 80 - Neurology was consulted; appreciated their input Chronic Systolic CHF - No evidence of decompensation / fluid overload - Patient remains saturating at 96% on room air - s/p AICD / Biventricular pacing - c/w Bumetanide, BB and ACEi w/ hold parameters Dysphagia - c/w Speech therapy recommendations s/p Troponin elevation - likely 2/2 demand ischemia / NSTEMI (Type II) - No chest pain, SOB or palpitations - Troponin has normalized - ECHO Noted above - Serial EKGs have shown no significant change - c/w Carvedilol, ASA 81 - Holding Lovenox with plan to switch to NOAC after stump bleeding is controlled s/p Gram-negative bacteremia - Blood cultures 10/05: (1 of 2) Morganella Morganii - Blood cultures 10/06: Negative at 5 days - s/p Antibiotic therapy Anemia - s/p 6 units PRBC and 1FFP as of this AM - will check H/H BID - goal >8 IDDM2 - c/w ISS and Levemir HTN - BP well controlled - c/w Carvedilol, Bumetanide, Lisinopril, Amlodipine with hold parameters Chronic Atrial fibrillation - c/w rate control with Carvedilol - Holding Lovenox with plan to switch to NOAC after stump bleeding is controlled DLP - c/w Gemfibrozil Gout - c/w Febuxostat CKD3 - Cr at baseline Neuropathy - c/w Amitriptyline GI prophylaxis - c/w Protonix DVT prophylaxis - Holding Lovenox with plan to switch to NOAC after stump bleeding is controlled Covid-19 exposure -Asymptomatic at this time -Repeat covid-19 testing was negative -on contact and droplet precautions Disposition: - In OR for bleeding, patient will need rehabilitation moving forward Radha PINEDA, I+O VSRadha I+O Laboratory Tests 11/25/20 17:24 11/26/20 05:35 11/26/20 05:36 Vital Signs Date Time Temp Pulse Resp B/P (MAP) Pulse Ox O2 Delivery O2 Flow Rate FiO2 11/26/20 06:00 97.4 63 18 101/60 (74) 99 Room Air I&O- Last 24 Hours up to 6 AM 11/26/20 05:59 Intake Total 980 ml Output Total 2325 ml Balance -1345 ml TAYLA KINNEY MD Nov 26, 2020 08:00
--- NOTE | 2020-11-26 14:23 | IPNPDOC ---
Text Note Date of Service The patient was seen on 11/26/20. NOTE After the recent bleeding this morning from TIKI drain site requiring OR explor ation and fluid bolus, 2u pRBCs and 1 FFP, she is now being transferred to the PCU for closer monitoring. VS,Fishbone, I+O VS, Fishbone, I+O Laboratory Tests 11/25/20 17:24 11/26/20 05:35 11/26/20 05:36 Vital Signs Date Time Temp Pulse Resp B/P (MAP) Pulse Ox O2 Delivery O2 Flow Rate FiO2 11/26/20 13:50 97.9 59 16 134/69 (90) 100 Room Air 11/26/20 12:20 2.0 I&O- Last 24 Hours up to 6 AM 11/26/20 06:00 Intake Total 910 ml Output Total 2025 ml Balance -1115 ml TAYLA KINNEY MD Nov 26, 2020 14:23
[2020-11-26 14:53] VITALS: BP 143/69
[2020-11-26] MEDS: NS 1,000 ML IV SCH (15:07)
[2020-11-26 15:17] LABS: HEMATOCRIT 30.7 % (36.0-47.0); HEMOGLOBIN 10.1 g/dl (12.0-15.5); MEAN CORPUSCULAR HEMOGLOBIN 29.1 pg (27.0-33.0); MEAN CORPUSCULAR HGB CONC 32.9 g/dl (32.0-36.5); MEAN CORPUSCULAR VOLUME 88.5 fl (80.0-96.0); PLATELET COUNT, AUTOMATED 225 10^3/uL (150-450); RED BLOOD COUNT 3.47 10^6/uL (4.00-5.40); WHITE BLOOD COUNT 11.9 10^3/uL (4.0-10.0)
--- NOTE | 2020-11-26 15:33 | IPNPDOC ---
Text Note Date of Service The patient was seen on 11/26/20 at 3:30 PM. NOTE S/p exploration of the right AKA and control of bleeding. The patient is doing well. She is not in acute distress. Pain control is adequate. On examination: Afebrile vital signs stable. Blood pressure 143/69. Right AKA stump dressing clean dry and intact. No swelling. Postoperative hemoglobin and hematocrit as 10.1/30. Impression: Stable postop Continue vitals monitoring and monitoring of the stump for bleeding. Suggest DVT prophylaxis with low-dose Lovenox VS,Fishbone, I+O VS, Fishbone, I+O Laboratory Tests 11/25/20 17:24 11/26/20 05:35 11/26/20 05:36 11/26/20 15:03 Vital Signs Date Time Temp Pulse Resp B/P (MAP) Pulse Ox O2 Delivery O2 Flow Rate FiO2 11/26/20 14:53 97.4 60 20 143/69 (93) 98 Room Air 11/26/20 12:20 2.0 I&O- Last 24 Hours up to 6 AM 11/26/20 05:59 Intake Total 980 ml Output Total 2325 ml Balance -1345 ml Kiah Venegas MD Nov 26, 2020 15:33
[2020-11-26] MEDS: ceFAZolin SOD 1 GM in D5W MINI-BAG PLUS 50 ML IV SCH ×2 (16:36→16:53)
[2020-11-26] MEDS: MAGNESIUM OXIDE 400MG TAB (MAG-OX) PO SCH (16:40)
[2020-11-26] MEDS: ATORVASTATIN 20 MG TAB PO SCH (16:40)
[2020-11-26] MEDS: ASPIRIN 81MG ENTERIC TABLET PO SCH (16:41)
[2020-11-26] MEDS: ASCORBIC ACID 500 MG TAB PO SCH (16:41)
[2020-11-26] MEDS: PANTOPRAZOLE 40MG TAB (PROTONIX) PO SCH (16:41)
[2020-11-26] MEDS: FLUCONAZOLE 50MG TABLET PO SCH (16:41)
[2020-11-26 20:00] VITALS: BP 141/67
[2020-11-26] MEDS: AMITRIPTYLINE 50 MG TAB PO SCH (21:16)
[2020-11-26] MEDS: oxyCODONE 5MG TAB PO PRN (21:23)
[2020-11-26 23:52] VITALS: BP 152/67
[2020-11-27] MEDS: ceFAZolin SOD 1 GM in D5W MINI-BAG PLUS 50 ML IV SCH ×4 (00:33→09:30)
[2020-11-27 04:00] VITALS: BP 152/66
[2020-11-27] MEDS: oxyCODONE 5MG TAB PO PRN (04:51)
[2020-11-27] MEDS: SODIUM CHLORIDE 0.9% INJ 10 ML SYR IV SCH ×2 (04:52→17:24)
[2020-11-27] MEDS: MORPHINE 2 MG/ML 1ML VIAL (J2270) IV PRN ×2 (06:05→10:31)
[2020-11-27 07:56] VITALS: BP 140/60
[2020-11-27] MEDS: NS 1,000 ML IV SCH (08:30)
[2020-11-27] MEDS: FLUCONAZOLE 50MG TABLET PO SCH (09:00)
[2020-11-27] MEDS: FEBUXOSTAT 40 MG TABLET (ULORIC) PO SCH (09:00)
--- NOTE | 2020-11-27 09:22 | IPNPDOC ---
Text Note Date of Service The patient was seen on 11/27/20 at 8 20 am. NOTE Patient comfortable. Not in acute distress. Complains of moderate pain in the right AKA stump. On examination: Mild pallor. Afebrile vital signs stable. Right AKA dressing clean dry and intact. Today's labs ordered. Impression: Patient is hemodynamically stable, with no gross signs or symptoms of ongoing bleeding. Plan: Dressing change tomorrow by MD Pain control Continue aspirin 81 mg and Lovenox for DVT prophylaxis Physical therapy - to at least get the patient out of bed today VS,Fishbone, I+O VS, Fishbone, I+O Laboratory Tests 11/26/20 15:03 Vital Signs Date Time Temp Pulse Resp B/P (MAP) Pulse Ox O2 Delivery O2 Flow Rate FiO2 11/27/20 07:56 98.3 60 18 140/60 (86) 97 Room Air 11/26/20 12:20 2.0 I&O- Last 24 Hours up to 6 AM 11/27/20 05:59 Intake Total 2220 ml Output Total 2245 ml Balance -25 ml Kiah Venegas MD Nov 27, 2020 09:22
[2020-11-27] MEDS: ENOXAPARIN 30MG/0.3ML SYRINGE (J1650 PER 10MG) SC SCH (10:26)
[2020-11-27] MEDS: SENOKOT S TAB PO SCH ×2 (10:26→20:36)
[2020-11-27] MEDS: ATORVASTATIN 20 MG TAB PO SCH (10:26)
[2020-11-27] MEDS: BUMETANIDE 1 MG TAB PO SCH (10:27)
[2020-11-27] MEDS: HumaLOG INSULIN (NovoLOG) PER UNIT SC SCH ×4 (10:27→20:35)
[2020-11-27] MEDS: PANTOPRAZOLE 40MG TAB (PROTONIX) PO SCH (10:28)
[2020-11-27] MEDS: ASPIRIN 81MG ENTERIC TABLET PO SCH (10:28)
[2020-11-27] MEDS: CARVedilol 12.5 MG TAB PO SCH ×2 (10:29→20:36)
[2020-11-27] MEDS: ASCORBIC ACID 500 MG TAB PO SCH (10:30)
--- NOTE | 2020-11-27 10:45 | IPNPDOC ---
Text Note Date of Service The patient was seen on 11/27/20. NOTE Subjective: -Had bleeding yesterday morning at stump at the site of the discontinued TIKI drain with associated hypotension requiring IVF and blood (2u pRBCs and 2FFP), had to return to the OR and now contained, repeat evening H/H had appropriately bumped and was normotensive. She was transferred to the PCU. -This morning pain is well controlled Objective: Vitals:See below General: Not in any acute distress, is awake, alert, oriented to person, place and time, visiting with son HEENT: Atraumatic and normocephalic CVS: irregularly irregular this morning, no noted murmur Lungs: There appears to be fair air entry bilaterally without any auscultated evidence of crackles, wheezing or rhonchi Abdomen: Normoactive sounds, soft without any distention or tenderness Extremities: Right lower extremity with [id number] amputation in dressing, LLE without edema Labs: reviewed pending AM labs, last H/H was 10.04/11.7 Imaging: Extremity CT 10/05: 1. There is a large soft tissue ulceration defect seen in the medial heel pad of the right foot, best seen on image 108 of series 303. 2. Medial to the soft tissue defect there is a fluid and gas collection, likely an abscess, measuring 2.8 x 2.1 cm transversely on image 61 of series 302 and measuring 1.6 cm in craniocaudal dimension on image 104 of series 303. 3. The bony cortical outline and marrow defect underlying the soft tissue defect are suggestive of acute osteomyelitis on image 50 of series 302. 4. No acute fractures. 5. Chronic calcific enthesopathy is seen in the proximal Achilles on image 6 of series 302. Foot XR 10/07: Postsurgical changes at the posterior aspect of calcaneal process. No immediate complication is evident. Head CT 10/20: Mild generalized volume loss. No acute intracranial abnormality. CTA head 10/20: 1. Occluded right middle cerebral artery proximally. 2. Corresponding hypodensity in the right middle cerebral artery territory suggestive of acute infarct. No acute hemorrhage. CXR 11/03: Area of increased density in the right apex should be evaluated further with PA and lateral views. Slight cardiac enlargement. No evidence of failure or pneumonia. PICC line in place with tip in superior vena cava. Carotid Vascular US 10/20: According to the SRU criteria there is less than 50% stenosis of the internal carotid artery bilaterally. This is secondary to both calcified and noncalcified plaque formation CT Head 10/20: 1. There has been no change since a study done earlier in the day. No interval hemorrhage. 2. Minimal chronic ischemic white matter change and atrophy with ill-defined areas of slightly decreased attenuation in the right cerebral hemisphere centrally and subcortical parietal lobe which are unchanged. ECHO 10/20: 1. Study is of acceptable technical quality; underlying atrial fibrillation and ventricular pacing. 2. Normal LV size with moderate left ventricular hypertrophy and estimated LVEF of 45 to 50%. Septal wall motion abnormality likely related to pacing. 3. No hemodynamically significant aortic valvular disease in spite of prominent valvular sclerosis. 4. Mild to moderate mitral insufficiency. 5. Elevated central venous pressure and mild pulmonary hypertension. 6. Severe biatrial enlargement. 7. Suspicion for left to right shunt across atrial septum based on color Doppler imaging. 8. "Negative Bubble Study." Esophageal XR 10/21: The patient is able to be given all consistencies performed today. However, there is an increase risk with ingestion of all food because of delayed triggering and pooling in the vallecula. CT head 10/21: New area of abnormal decreased attenuation as described above consistent with an acute nonhemorrhagic infarction. MRI examination of the brain is recommended. CT head 10/22: Who ventricular nucleus and external capsule nonhemorrhagic infarct showing slight increase when compared with yesterday's examination. No evidence of hemorrhage or mass effect. CXR 10/22: Stable cardiomegaly. Cardiac electrodes remain in place Prominent lung markings -- perhaps [id number] vascular congestion. Diffuse interstitial pneumonitis cannot be excluded. Clinical correlation is needed. Follow-up is suggested, as symptoms warrant. CXR 10/25: 1. There is moderate congestive change with moderate pulmonary edema. 2. Mild left basilar atelectasis or infiltrate. Foot XR 11/06: Soft tissue and bony defect along the posterior aspect of the foot involving calcaneus. Esophagus XR 11/11: Flash penetration as described above, a detailed report will be provided by speech pathology. 3.3 minutes of fluoroscopy time was utilized for this procedure. Some fluoroscopic images are performed with last image hold technology. These images require no additional radiation CT Head 11/11: Again noted is a subacute infarction in the distribution of the right lenticulostriate arteries. There are no complications evident. No significant change. Shoulder XR 11/16: No evidence of fracture or dislocation. There is arthritis of the acromioclavicular and glenohumeral joints. Arterial US 11/18: Occlusion distal right superficial femoral artery and proximal popliteal artery with reconstitution of the distal popliteal artery. Very slow flow in the distal calf arteries at the ankle. Assessment: 65-year-old Greek speaking W with a PMHx of HTN, CAD, Chronic A. fib, CHF, PVD, DLP, DM2, Gout, Vertigo, GERD who presented to the ER with complaints of infected R heel wound who ultimately had an AKA after failed debridement and angioplasty and antibiotics, who is now recovering with course c/b R MCA stroke and post AKA bleeding. Infected RLE heel ulcer with acute osteomyelitis of the calcaneum; in the sett ing of vascular compromise; s/p R AKA - Dressing in place and intact - Leukocytosis and CRP downtrending - Wound cultures 10/05: Escherichia coli, Morganella morganii, Enterococcus faecalis, MRSA - Wound cultures 10/07: Morganella morganii, Escherichia coli, Enterococcus faecalis - Wound culture 11/14: Pseudomonas aeruginosa - s/p Posterior resection of the right calcaneum on 10/07/[address] Bone - s/p Vascular intervention or R SFA angioplasty on 10/12/[address] Maya - s/p R AKA on 11/21/[address] Venegas c/b bleeding in OR today - Imaging noted above - Podiatry, Vascular surgery, Interventional radiology, and infectious disease on consultation - s/p Antibiotic therapy; s/p Levaquin; Completed Zosyn (6 week course) - c/w PT and OT; will require rehabilitation moving forward Postop stump bleeding: i/s/o recent surgery, recent elevated INR and therapeutic lovenox -s/p emergent exploration, and control of bleeding from right above-knee amputation stump on 11/26 -holding all anticoagulation -s/p 6u pRBCs this admission and 2FFP -f/u AM H/H -vascular surgery onboard, appreciate recs -on tanner-op empiric ancef Acute right MCA stroke with left sided weakness - Patient had code stroke called on 8 AM - Imaging noted above; Unable to get MRI 2/2 PPM - c/w ASA 81 - Holding Lovenox with plan to switch to NOAC after stump bleeding has resolved with stable H/H - c/w Atorvastatin 80 - Neurology was consulted; appreciated their input Chronic Systolic CHF - No evidence of decompensation / fluid overload - Patient remains saturating at 96% on room air - s/p AICD / Biventricular pacing - c/w Bumetanide, BB and ACEi w/ hold parameters Dysphagia - c/w Speech therapy recommendations s/p Troponin elevation - likely 2/2 demand ischemia / NSTEMI (Type II) - No chest pain, SOB or palpitations - Troponin has normalized - ECHO Noted above - Serial EKGs have shown no significant change - c/w Carvedilol, ASA 81 - Holding Lovenox with plan to switch to NOAC after stump bleeding has resolved with stable H/H s/p Gram-negative bacteremia - Blood cultures 10/05: (1 of 2) Morganella Morganii - Blood cultures 10/06: Negative at 5 days - s/p Antibiotic therapy Anemia - s/p 6 units PRBC and 1FFP as of this AM - will check H/H BID - goal >8 IDDM2 - c/w ISS and Levemir HTN - BP well controlled - c/w Carvedilol, Bumetanide, Lisinopril, Amlodipine with hold parameters Chronic Atrial fibrillation - c/w rate control with Carvedilol - Holding Lovenox with plan to switch to NOAC after stump bleeding has resolved with stable H/H DLP - c/w Gemfibrozil Gout - c/w Febuxostat CKD3 - Cr at baseline Neuropathy - c/w Amitriptyline GI prophylaxis - c/w Protonix DVT prophylaxis - Holding Lovenox with plan to switch to NOAC after stump bleeding has resolved with stable H/H Covid-19 exposure -Asymptomatic at this time -Repeat covid-19 testing was negative -on contact and droplet precautions Disposition: Pending clinical improvement, will need rehab thereafter VS,Fishbone, I+O VS, Fishbone, I+O Laboratory Tests 11/26/20 15:03 Vital Signs Date Time Temp Pulse Resp B/P (MAP) Pulse Ox O2 Delivery O2 Flow Rate FiO2 11/27/20 07:56 98.3 60 18 140/60 (86) 97 Room Air 11/26/20 12:20 2.0 I&O- Last 24 Hours up to 6 AM 11/27/20 06:00 Intake Total 2260 ml Output Total 1820 ml Balance 440 ml TAYLA KINNEY MD Nov 27, 2020 10:12
[2020-11-27 12:00] VITALS: BP 128/57
[2020-11-27 12:21] LABS: HEMATOCRIT 28.9 % (36.0-47.0); HEMOGLOBIN 9.7 g/dl (12.0-15.5); MEAN CORPUSCULAR HEMOGLOBIN 29.2 pg (27.0-33.0); MEAN CORPUSCULAR HGB CONC 33.6 g/dl (32.0-36.5); PLATELET COUNT, AUTOMATED 288 10^3/uL (150-450); RED BLOOD COUNT 3.32 10^6/uL (4.00-5.40); WHITE BLOOD COUNT 16.1 10^3/uL (4.0-10.0)
[2020-11-27 12:35] LABS: INR 1.51; PROTHROMBIN TIME 18.7 SECONDS (12.7-14.5)
[2020-11-27 12:57] LABS: BLOOD UREA NITROGEN 22 MG/DL (7-18); CALCIUM LEVEL 7.7 MG/DL (8.8-10.2); CARBON DIOXIDE LEVEL 28 MEQ/L (21-32); CHLORIDE LEVEL 98 MEQ/L (98-107); CREATININE FOR GFR 0.73 MG/DL (0.55-1.30); GLOMERULAR FILTRATION RATE > 60.0 (>45); GLUCOSE, FASTING 157 MG/DL (70-100); MAGNESIUM LEVEL 1.9 MG/DL (1.8-2.4); POTASSIUM SERUM 3.4 MEQ/L (3.5-5.1); SODIUM LEVEL 133 MEQ/L (136-145)
[2020-11-27 16:00] VITALS: BP 125/60
[2020-11-27] MEDS: ACETAMINOPHEN TAB 650MG DOSE (2X325MG) PO PRN (17:25)
[2020-11-27] MEDS ORDERED: POTASSIUM CHLORIDE 10MEQ SR TABLET PO ONE (18:15)
[2020-11-27 20:00] VITALS: BP 112/59
[2020-11-27] MEDS: AMITRIPTYLINE 50 MG TAB PO SCH (20:38)
[2020-11-28] VITALS: BP 119/59
[2020-11-28 04:00] VITALS: BP 130/60
[2020-11-28] MEDS: SODIUM CHLORIDE 0.9% INJ 10 ML SYR IV SCH ×2 (05:09→17:33)
[2020-11-28 07:17] VITALS: BP 118/72
[2020-11-28] MEDS: HumaLOG INSULIN (NovoLOG) PER UNIT SC SCH ×4 (08:37→21:00)
[2020-11-28] MEDS: ASPIRIN 81MG ENTERIC TABLET PO SCH (08:38)
[2020-11-28] MEDS: FLUCONAZOLE 50MG TABLET PO SCH (08:38)
[2020-11-28] MEDS: CARVedilol 12.5 MG TAB PO SCH ×2 (08:38→21:00)
[2020-11-28] MEDS: MAGNESIUM OXIDE 400MG TAB (MAG-OX) PO SCH (08:39)
[2020-11-28] MEDS: ATORVASTATIN 20 MG TAB PO SCH (08:39)
[2020-11-28] MEDS: PANTOPRAZOLE 40MG TAB (PROTONIX) PO SCH (08:39)
[2020-11-28] MEDS: SENOKOT S TAB PO SCH ×2 (08:39→21:38)
[2020-11-28] MEDS: oxyCODONE 5MG TAB PO PRN ×2 (08:40→21:37)
[2020-11-28] MEDS: FEBUXOSTAT 40 MG TABLET (ULORIC) PO SCH (08:40)
[2020-11-28] MEDS: ASCORBIC ACID 500 MG TAB PO SCH (08:40)
[2020-11-28] MEDS: ENOXAPARIN 30MG/0.3ML SYRINGE (J1650 PER 10MG) SC SCH (08:40)
[2020-11-28 09:08] LABS: HEMATOCRIT 27.8 % (36.0-47.0); HEMOGLOBIN 9.3 g/dl (12.0-15.5); MEAN CORPUSCULAR HEMOGLOBIN 29.2 pg (27.0-33.0); MEAN CORPUSCULAR HGB CONC 33.5 g/dl (32.0-36.5); MEAN CORPUSCULAR VOLUME 87.4 fl (80.0-96.0); PLATELET COUNT, AUTOMATED 319 10^3/uL (150-450); RED BLOOD COUNT 3.18 10^6/uL (4.00-5.40); WHITE BLOOD COUNT 12.6 10^3/uL (4.0-10.0)
[2020-11-28 09:33] LABS: BLOOD UREA NITROGEN 26 MG/DL (7-18); CALCIUM LEVEL 7.8 MG/DL (8.8-10.2); CARBON DIOXIDE LEVEL 27 MEQ/L (21-32); CHLORIDE LEVEL 100 MEQ/L (98-107); CREATININE FOR GFR 0.56 MG/DL (0.55-1.30); GLOMERULAR FILTRATION RATE > 60.0 (>45); GLUCOSE, FASTING 131 MG/DL (70-100); POTASSIUM SERUM 4.2 MEQ/L (3.5-5.1); SODIUM LEVEL 134 MEQ/L (136-145)
--- NOTE | 2020-11-28 10:30 | IPNPDOC ---
Text Note Date of Service The patient was seen on 11/28/20 at 9:30 AM. NOTE Patient seen with Dr. Alvarez. Patient comfortable. Not in acute distress. Denies any pain in the right AKA stump. Pain control adequate On examination: She is afebrile, with stable vital signs. Right AKA dressing changed. The stump looks clean, with viable flaps. There is no active bleeding. There was serosanguineous drainage on the postop dressing. Labs noted: Relevant labs include white count of 12.6K down from 16.1K yesterday. Hemoglobin is stable at 9.3 from 9.7 g% yesterday. She is off antibiotics Impression/plan: Stable s/p right AKA and postop day 2-exploration of right AKA. She is doing well. No evidence of ongoing bleeding, from the AKA. Her vitals and hemoglobin seem to be stable. Therapeutic anticoagulation, with Eliquis may be started from tomorrow. Plan of care discussed with the patient's son Andre over the phone VS,Radha, I+O VSRadha, I+O Laboratory Tests 11/27/20 12:02 11/28/20 06:00 Vital Signs Date Time Temp Pulse Resp B/P (MAP) Pulse Ox O2 Delivery O2 Flow Rate FiO2 11/28/20 09:10 18 Room Air 11/28/20 08:38 62 118/72 11/28/20 07:17 98.3 98 11/26/20 12:20 2.0 I&O- Last 24 Hours up to 6 AM 11/28/20 06:00 Intake Total 1300 ml Output Total 1875 ml Balance -575 ml Kiah Venegas MD Nov 28, 2020 10:30
--- NOTE | 2020-11-28 12:33 | IPNPDOC ---
Text Note Date of Service The patient was seen on 11/28/20. NOTE Subjective: -No acute events over the last 24h -This morning pain is well controlled, patient is depressed from all the complications Objective: Vitals:See below General: Not in any acute distress, is awake, alert, oriented to person, place and time, visiting with son HEENT: Atraumatic and normocephalic CVS: irregularly irregular this morning, no noted murmur Lungs: There appears to be fair air entry bilaterally without any auscultated evidence of crackles, wheezing or rhonchi Abdomen: Normoactive sounds, soft without any distention or tenderness Extremities: Right lower extremity with [id number]-[id number]-[id number] amputation in dressing, LLE without edema Labs: reviewed Hgb 9.3 WBC 12.6na 134 K 4.2 Cr 0.56 INR 1.5 Imaging: Extremity CT 10/05: 1. There is a large soft tissue ulceration defect seen in the medial heel pad of the right foot, best seen on image 108 of series 303. 2. Medial to the soft tissue defect there is a fluid and gas collection, likely an abscess, measuring 2.8 x 2.1 cm transversely on image 61 of series 302 and measuring 1.6 cm in craniocaudal dimension on image 104 of series 303. 3. The bony cortical outline and marrow defect underlying the soft tissue defect are suggestive of acute osteomyelitis on image 50 of series 302. 4. No acute fractures. 5. Chronic calcific enthesopathy is seen in the proximal Achilles on image 6 of series 302. Foot XR 10/07: Postsurgical changes at the posterior aspect of calcaneal process. No immediate complication is evident. Head CT 10/20: Mild generalized volume loss. No acute intracranial abnormality. CTA head 10/20: 1. Occluded right middle cerebral artery proximally. 2. Corresponding hypodensity in the right middle cerebral artery territory suggestive of acute infarct. No acute hemorrhage. CXR 11/03: Area of increased density in the right apex should be evaluated further with PA and lateral views. Slight cardiac enlargement. No evidence of failure or pneumonia. PICC line in place with tip in superior vena cava. Carotid Vascular US 10/20: According to the SRU criteria there is less than 50% stenosis of the internal carotid artery bilaterally. This is secondary to both calcified and noncal cified plaque formation CT Head 10/20: 1. There has been no change since a study done earlier in the day. No interval hemorrhage. 2. Minimal chronic ischemic white matter change and atrophy with ill-defined areas of slightly decreased attenuation in the right cerebral hemisphere centrally and subcortical parietal lobe which are unchanged. ECHO 10/20: 1. Study is of acceptable technical quality; underlying atrial fibrillation and ventricular pacing. 2. Normal LV size with moderate left ventricular hypertrophy and estimated LVEF of 45 to 50%. Septal wall motion abnormality likely related to pacing. 3. No hemodynamically significant aortic valvular disease in spite of prominent valvular sclerosis. 4. Mild to moderate mitral insufficiency. 5. Elevated central venous pressure and mild pulmonary hypertension. 6. Severe biatrial enlargement. 7. Suspicion for left to right shunt across atrial septum based on color Doppler imaging. 8. "Negative Bubble Study." Esophageal XR 10/21: The patient is able to be given all consistencies performed today. However, there is an increase risk with ingestion of all food because of delayed triggering and pooling in the vallecula. CT head 10/21: New area of abnormal decreased attenuation as described above consistent with an acute nonhemorrhagic infarction. MRI examination of the brain is recommended. CT head 10/22: Who ventricular nucleus and external capsule nonhemorrhagic infarct showing slight increase when compared with yesterday's examination. No evidence of hemorrhage or mass effect. CXR 10/22: Stable cardiomegaly. Cardiac electrodes remain in place Prominent lung markings -- perhaps [id number] vascular congestion. Diffuse interstitial pneumonitis cannot be excluded. Clinical correlation is needed. Follow-up is suggested, as symptoms warrant. CXR 10/25: 1. There is moderate congestive change with moderate pulmonary edema. 2. Mild left basilar atelectasis or infiltrate. Foot XR 11/06: Soft tissue and bony defect along the posterior aspect of the foot involving calcaneus. Esophagus XR 11/11: Flash penetration as described above, a detailed report will be provided by speech pathology. 3.3 minutes of fluoroscopy time was utilized for this procedure. Some fluoroscopic images are performed with last image hold technology. These images require no additional radiation CT Head 11/11: Again noted is a subacute infarction in the distribution of the right lenticulostriate arteries. There are no complications evident. No significant change. Shoulder XR 11/16: No evidence of fracture or dislocation. There is arthritis of the acromioclavicular and glenohumeral joints. Arterial US 11/18: Occlusion distal right superficial femoral artery and proximal popliteal artery with reconstitution of the distal popliteal artery. Very slow flow in the distal calf arteries at the ankle. Assessment: 65-year-old Khmer speaking W with a PMHx of HTN, CAD, Chronic A. fib, CHF, PVD, DLP, DM2, Gout, Vertigo, GERD who presented to the ER with complaints of infected R heel wound who ultimately had an AKA after failed debridement and angioplasty and antibiotics, who is now recovering with course c/b R MCA stroke and post AKA bleeding. Infected RLE heel ulcer with acute osteomyelitis of the calcaneum; in the setting of vascular compromise; s/p R AKA - Dressing in place and intact - Leukocytosis and CRP downtrending - Wound cultures 10/05: Escherichia coli, Morganella morganii, Enterococcus faecalis, MRSA - Wound cultures 10/07: Morganella morganii, Escherichia coli, Enterococcus faecalis - Wound culture 11/14: Pseudomonas aeruginosa - s/p Posterior resection of the right calcaneum on 10/07/[address] Bone - s/p Vascular intervention or R SFA angioplasty on 10/12/[address] Maya - s/p R AKA on 11/21/[address] Venegas c/b bleeding s/p exploration and stopping bleeding on 11/26, on tanner-op ancef - Imaging noted above - Podiatry, Vascular surgery, Interventional radiology, and infectious disease on consultation - s/p Antibiotic therapy; s/p Levaquin; Completed Zosyn (6 week course) - c/w PT and OT; will require rehabilitation moving forward Postop stump bleeding: i/s/o recent surgery, recent elevated INR and therapeutic lovenox -s/p emergent exploration, and control of bleeding from right above-knee amputation stump on 11/26 -holding full dose anticoagulation, on ppx dosing lovenox -s/p 6u pRBCs this admission and 2FFP -f/u AM H/H -vascular surgery onboard, appreciate recs -on tanner-op empiric ancef per vascular surgery Acute right MCA stroke with left sided weakness - Patient had code stroke called on 8/10 AM - Imaging noted above; Unable to get MRI 2/2 PPM - c/w ASA 81 - Currently holding full dose anticoagulation, on ppx dosing lovenox with plan to switch to NOAC after stump bleeding has resolved with stable H/H. - c/w Atorvastatin 80 - Neurology was consulted; appreciated their input Chronic Systolic CHF - No evidence of decompensation / fluid overload - Patient remains saturating at 96% on room air - s/p AICD / Biventricular pacing - c/w Bumetanide, BB and ACEi w/ hold parameters Dysphagia - c/w Speech therapy recommendations s/p Troponin elevation - likely 2/2 demand ischemia / NSTEMI (Type II) - No chest pain, SOB or palpitations - Troponin has normalized - ECHO Noted above - Serial EKGs have shown no significant change - c/w Carvedilol, ASA 81 - Currently holding full dose anticoagulation, on ppx dosing lovenox with plan to switch to NOAC after stump bleeding has resolved with stable H/H. s/p Gram-negative bacteremia - Blood cultures 10/05: (1 of 2) Morganella Morganii - Blood cultures 10/06: Negative at 5 days - s/p Antibiotic therapy Anemia - s/p 6 units PRBC and 1FFP as of this AM - will check H/H BID - goal >8 IDDM2 - c/w ISS and Levemir HTN - BP well controlled - c/w Carvedilol, Bumetanide, Lisinopril, Amlodipine with hold parameters Chronic Atrial fibrillation - c/w rate control with Carvedilol - Currently holding full dose anticoagulation, on ppx dosing lovenox with plan to switch to NOAC after stump bleeding has resolved with stable H/H. DLP - c/w Gemfibrozil Gout - c/w Febuxostat CKD3 - Cr at baseline Neuropathy - c/w Amitriptyline GI prophylaxis - c/w Protonix DVT prophylaxis - Currently holding full dose anticoagulation, on ppx dosing lovenox with plan to switch to NOAC after stump bleeding has resolved with stable H/H. Covid-19 exposure -Asymptomatic at this time -Repeat covid-19 testing was negative -on contact and droplet precautions Disposition: Pending clinical improvement, will need rehab thereafter VS,Fishbone, I+O VS, Fishbone, I+O Laboratory Tests 11/27/20 12:02 11/28/20 06:00 Vital Signs Date Time Temp Pulse Resp B/P (MAP) Pulse Ox O2 Delivery O2 Flow Rate FiO2 11/28/20 09:10 18 Room Air 11/28/20 08:38 62 118/72 11/28/20 07:17 98.3 98 11/26/20 12:20 2.0 I&O- Last 24 Hours up to 6 AM0 11/28/20 06:00 Intake Total 1300 ml Output Total 1875 ml Balance -575 ml TAYLA KINNEY MD Nov 28, 2020 09:56
[2020-11-28 12:35] VITALS: BP 152/58
[2020-11-28] MEDS: MORPHINE 2 MG/ML 1ML VIAL (J2270) IV PRN ×2 (12:45→20:00)
[2020-11-28 16:25] VITALS: BP 148/60
[2020-11-28 20:00] VITALS: BP 133/62
[2020-11-28] MEDS: AMITRIPTYLINE 50 MG TAB PO SCH (21:38)
[2020-11-29] VITALS: BP 125/60
[2020-11-29] MEDS: CARVedilol 12.5 MG TAB PO SCH ×3 (01:15→21:20)
[2020-11-29] MEDS: SODIUM CHLORIDE 0.9% INJ 10 ML SYR IV SCH ×2 (05:53→17:21)
[2020-11-29 06:00] VITALS: BP 127/63
[2020-11-29 06:08] LABS: HEMATOCRIT 28.5 % (36.0-47.0); HEMOGLOBIN 9.2 g/dl (12.0-15.5); MEAN CORPUSCULAR HEMOGLOBIN 28.7 pg (27.0-33.0); MEAN CORPUSCULAR HGB CONC 32.3 g/dl (32.0-36.5); MEAN CORPUSCULAR VOLUME 88.8 fl (80.0-96.0); PLATELET COUNT, AUTOMATED 378 10^3/uL (150-450); RED BLOOD COUNT 3.21 10^6/uL (4.00-5.40); WHITE BLOOD COUNT 10.4 10^3/uL (4.0-10.0)
[2020-11-29 06:29] LABS: BLOOD UREA NITROGEN 25 MG/DL (7-18); CALCIUM LEVEL 7.9 MG/DL (8.8-10.2); CARBON DIOXIDE LEVEL 29 MEQ/L (21-32); CHLORIDE LEVEL 99 MEQ/L (98-107); CREATININE FOR GFR 0.62 MG/DL (0.55-1.30); GLOMERULAR FILTRATION RATE > 60.0 (>45); GLUCOSE, FASTING 97 MG/DL (70-100); SODIUM LEVEL 135 MEQ/L (136-145)
[2020-11-29] MEDS: HumaLOG INSULIN (NovoLOG) PER UNIT SC SCH ×4 (07:24→20:55)
[2020-11-29 08:01] VITALS: BP 116/56
[2020-11-29] MEDS: BUMETANIDE 1 MG TAB PO SCH (08:33)
[2020-11-29] MEDS: ATORVASTATIN 20 MG TAB PO SCH (08:34)
[2020-11-29] MEDS: ASPIRIN 81MG ENTERIC TABLET PO SCH (08:34)
[2020-11-29] MEDS: APIXABAN 5 MG TAB (ELIQUIS) PO SCH ×2 (08:34→21:20)
[2020-11-29] MEDS: FLUCONAZOLE 50MG TABLET PO SCH (08:34)
[2020-11-29] MEDS: SENOKOT S TAB PO SCH ×2 (08:35→21:20)
[2020-11-29] MEDS: PANTOPRAZOLE 40MG TAB (PROTONIX) PO SCH (08:35)
[2020-11-29] MEDS: FEBUXOSTAT 40 MG TABLET (ULORIC) PO SCH (08:36)
[2020-11-29] MEDS: ASCORBIC ACID 500 MG TAB PO SCH (08:36)
--- NOTE | 2020-11-29 11:10 | IPNPDOC ---
Text Note Date of Service The patient was seen on 11/29/20. NOTE Subjective: -No acute events over the last 24h -This morning pain is well controlled Objective: Vitals:See below General: Not in any acute distress, is awake, alert, oriented to person, place and time, visiting with son HEENT: Atraumatic and normocephalic CVS: irregularly irregular this morning, no noted murmur Lungs: There appears to be fair air entry bilaterally without any auscultated evidence of crackles, wheezing or rhonchi Abdomen: Normoactive sounds, soft without any distention or tenderness Extremities: Right lower extremity with [id number] amputation in dressing, LLE without edema Labs: reviewed Hgb 9.2 WBC 10.4 na 134 K 4 Cr 0.62 Imaging: Extremity CT 10/05: 1. There is a large soft tissue ulceration defect seen in the medial heel pad of the right foot, best seen on image 108 of series 303. 2. Medial to the soft tissue defect there is a fluid and gas collection, likely an abscess, measuring 2.8 x 2.1 cm transversely on image 61 of series 302 and measuring 1.6 cm in craniocaudal dimension on image 104 of series 303. 3. The bony cortical outline and marrow defect underlying the soft tissue defect are suggestive of acute osteomyelitis on image 50 of series 302. 4. No acute fractures. 5. Chronic calcific enthesopathy is seen in the proximal Achilles on image 6 of series 302. Foot XR 10/07: Postsurgical changes at the posterior aspect of calcaneal process. No immediate complication is evident. Head CT 10/20: Mild generalized volume loss. No acute intracranial abnormality. CTA head 10/20: 1. Occluded right middle cerebral artery proximally. 2. Corresponding hypodensity in the right middle cerebral artery territory suggestive of acute infarct. No acute hemorrhage. CXR 11/03: Area of increased density in the right apex should be evaluated further with PA and lateral views. Slight cardiac enlargement. No evidence of failure or pneumonia. PICC line in place with tip in superior vena cava. Carotid Vascular US 10/20: According to the SRU criteria there is less than 50% stenosis of the internal carotid artery bilaterally. This is secondary to both calcified and noncalcified plaque formation CT Head 10/20: 1. There has been no change since a study done earlier in the day. No interval hemorrhage. 2. Minimal chronic ischemic white matter change and atrophy with ill-defined areas of slightly decreased attenuation in the right cerebral hemisphere centrally and subcortical parietal lobe which are unchanged. ECHO 10/20: 1. Study is of acceptable technical quality; underlying atrial fibrillation and ventricular pacing. 2. Normal LV size with moderate left ventricular hypertrophy and estimated LVEF of 45 to 50%. Septal wall motion abnormality likely related to pacing. 3. No hemodynamically significant aortic valvular disease in spite of prominent valvular sclerosis. 4. Mild to moderate mitral insufficiency. 5. Elevated central venous pressure and mild pulmonary hypertension. 6. Severe biatrial enlargement. 7. Suspicion for left to right shunt across atrial septum based on color Doppler imaging. 8. "Negative Bubble Study." Esophageal XR 10/21: The patient is able to be given all consistencies performed today. However, there is an increase risk with ingestion of all food because of delayed triggering and pooling in the vallecula. CT head 10/21: New area of abnormal decreased attenuation as described above consistent with an acute nonhemorrhagic infarction. MRI examination of the brain is recommended. CT head 10/22: Who ventricular nucleus and external capsule nonhemorrhagic infarct showing slig ht increase when compared with yesterday's examination. No evidence of hemorrhage or mass effect. CXR 10/22: Stable cardiomegaly. Cardiac electrodes remain in place Prominent lung markings -- perhaps [id number] vascular congestion. Diffuse interstitial pneumonitis cannot be excluded. Clinical correlation is needed. Follow-up is suggested, as symptoms warrant. CXR 10/25: 1. There is moderate congestive change with moderate pulmonary edema. 2. Mild left basilar atelectasis or infiltrate. Foot XR 11/06: Soft tissue and bony defect along the posterior aspect of the foot involving calcaneus. Esophagus XR 11/11: Flash penetration as described above, a detailed report will be provided by [facility]. 3.3 minutes of fluoroscopy time was utilized for this procedure. Some fluoroscopic images are performed with last image hold technology. These images require no additional radiation CT Head 11/11: Again noted is a subacute infarction in the distribution of the right lenticulostriate arteries. There are no complications evident. No significant change. Shoulder XR 11/16: No evidence of fracture or dislocation. There is arthritis of the acromioclavicular and glenohumeral joints. Arterial US 11/18: Occlusion distal right superficial femoral artery and proximal popliteal artery with reconstitution of the distal popliteal artery. Very slow flow in the distal calf arteries at the ankle. Assessment: 65-year-old Bahraini speaking W with a PMHx of HTN, CAD, Chronic A. fib, CHF, PV D, DLP, DM2, Gout, Vertigo, GERD who presented to the ER with complaints of infected R heel wound who ultimately had an AKA after failed debridement and angioplasty and antibiotics, who is now recovering with course c/b R MCA stroke and post AKA bleeding. Infected RLE heel ulcer with acute osteomyelitis of the calcaneum; in the setting of vascular compromise; s/p R AKA - Dressing in place and intact - Leukocytosis and CRP downtrending - Wound cultures 10/05: Escherichia coli, Morganella morganii, Enterococcus faecalis, MRSA - Wound cultures 10/07: Morganella morganii, Escherichia coli, Enterococcus faecalis - Wound culture 11/14: Pseudomonas aeruginosa - s/p Posterior resection of the right calcaneum on 10/07/[address] Bone - s/p Vascular intervention or R SFA angioplasty on 10/12/[address] Maya - s/p R AKA on 11/21/[address] Venegas c/b bleeding s/p exploration and stopping bleeding on 11/26 - Imaging noted above - Podiatry, Vascular surgery, Interventional radiology, and infectious disease on consultation - s/p Antibiotic therapy; s/p Levaquin; Completed Zosyn (6 week course) - c/w PT and OT; will require rehabilitation moving forward Postop stump bleeding: i/s/o recent surgery, recent elevated INR and therapeutic lovenox - s/p emergent exploration, and control of bleeding from right above-knee amputation stump on 11/26 - H/H now stable, will begin eliquis 5mg BID this morning - s/p 6u pRBCs this admission and 2FFP - daily CBC - vascular surgery onboard, appreciate recs Acute right MCA stroke with left sided weakness - Patient had code stroke called on 8/10 AM - Imaging noted above; Unable to get MRI 2/2 PPM - c/w ASA 81 - H/H now stable, will begin eliquis 5mg BID this morning - c/w Atorvastatin 80 - Neurology was consulted; appreciated their input Chronic Systolic CHF - No evidence of decompensation / fluid overload - Patient remains saturating at 96% on room air - s/p AICD / Biventricular pacing - c/w Bumetanide, BB and ACEi w/ hold parameters Dysphagia - c/w Speech therapy recommendations s/p Troponin elevation - likely 2/2 demand ischemia / NSTEMI (Type II) - No chest pain, SOB or palpitations - Troponin has normalized - ECHO Noted above - Serial EKGs have shown no significant change - c/w Carvedilol, ASA 81 - H/H now stable, will begin eliquis 5mg BID this morning s/p Gram-negative bacteremia - Blood cultures 10/05: (1 of 2) Morganella Morganii - Blood cultures 10/06: Negative at 5 days - s/p Antibiotic therapy Anemia - s/p 6 units PRBC and 2FFP. - H/H now stable, will begin eliquis 5mg BID this morning - goal >8 IDDM2 - c/w ISS and Levemir HTN - BP well controlled - c/w Carvedilol, Bumetanide, Lisinopril, Amlodipine with hold parameters Chronic Atrial fibrillation - c/w rate control with Carvedilol - H/H now stable, will begin eliquis 5mg BID this morning DLP - c/w Gemfibrozil Gout - c/w Febuxostat CKD3 - Cr at baseline Neuropathy - c/w Amitriptyline GI prophylaxis - c/w Protonix DVT prophylaxis - H/H now stable, will begin eliquis 5mg BID this morning Covid-19 exposure -Asymptomatic at this time -Repeat covid-19 testing was negative -on contact and droplet precautions Disposition: Pending clinical improvement, will need rehab thereafter VS,Fishbone, I+O VS, Fishbone, I+O Laboratory Tests 11/29/20 05:51 Vital Signs Date Time Temp Pulse Resp B/P (MAP) Pulse Ox O2 Delivery O2 Flow Rate FiO2 11/29/20 08:26 59 11/29/20 08:01 98.2 20 116/56 (76) 99 Room Air 11/26/20 12:20 2.0 I&O- Last 24 Hours up to 6 AM 11/29/20 05:59 Intake Total 420 ml Output Total 875 ml Balance -455 ml TAYLA KINNEY MD Nov 29, 2020 08:32
[2020-11-29 12:30] VITALS: BP 122/63
[2020-11-29 16:23] VITALS: BP 124/66
[2020-11-29] MEDS: oxyCODONE 5MG TAB PO PRN ×2 (17:22→21:34)
[2020-11-29 20:00] VITALS: BP 131/62
[2020-11-29] MEDS: AMITRIPTYLINE 50 MG TAB PO SCH (21:20)
[2020-11-30] VITALS: BP 139/65
[2020-11-30 04:00] VITALS: BP 126/60
[2020-11-30] MEDS: SODIUM CHLORIDE 0.9% INJ 10 ML SYR IV SCH ×2 (06:22→17:38)
[2020-11-30] MEDS: oxyCODONE 5MG TAB PO PRN ×2 (06:28→20:21)
[2020-11-30 06:44] LABS: HEMATOCRIT 27.6 % (36.0-47.0); HEMOGLOBIN 9.1 g/dl (12.0-15.5); MEAN CORPUSCULAR HEMOGLOBIN 29.4 pg (27.0-33.0); PLATELET COUNT, AUTOMATED 428 10^3/uL (150-450); WHITE BLOOD COUNT 9.2 10^3/uL (4.0-10.0)
[2020-11-30 07:08] LABS: BLOOD UREA NITROGEN 21 MG/DL (7-18); CALCIUM LEVEL 7.9 MG/DL (8.8-10.2); CARBON DIOXIDE LEVEL 29 MEQ/L (21-32); CHLORIDE LEVEL 97 MEQ/L (98-107); GLOMERULAR FILTRATION RATE > 60.0 (>45); GLUCOSE, FASTING 116 MG/DL (70-100); POTASSIUM SERUM 4.1 MEQ/L (3.5-5.1); SODIUM LEVEL 134 MEQ/L (136-145)
[2020-11-30 08:00] VITALS: BP 135/63
[2020-11-30] MEDS: PANTOPRAZOLE 40MG TAB (PROTONIX) PO SCH (08:35)
[2020-11-30] MEDS: APIXABAN 5 MG TAB (ELIQUIS) PO SCH ×2 (08:35→20:22)
[2020-11-30] MEDS: SENOKOT S TAB PO SCH ×2 (08:36→20:21)
[2020-11-30] MEDS: ASPIRIN 81MG ENTERIC TABLET PO SCH (08:36)
[2020-11-30] MEDS: MAGNESIUM OXIDE 400MG TAB (MAG-OX) PO SCH (08:36)
[2020-11-30] MEDS: ATORVASTATIN 20 MG TAB PO SCH (08:36)
[2020-11-30] MEDS: ACETAMINOPHEN TAB 650MG DOSE (2X325MG) PO PRN (08:37)
[2020-11-30] MEDS: ASCORBIC ACID 500 MG TAB PO SCH (08:37)
[2020-11-30] MEDS: BUMETANIDE 1 MG TAB PO SCH (08:38)
[2020-11-30] MEDS: FEBUXOSTAT 40 MG TABLET (ULORIC) PO SCH (08:38)
[2020-11-30] MEDS: CARVedilol 12.5 MG TAB PO SCH ×2 (08:43→20:22)
[2020-11-30] MEDS: HumaLOG INSULIN (NovoLOG) PER UNIT SC SCH ×4 (08:43→20:22)
[2020-11-30 12:00] VITALS: BP 132/60
--- NOTE | 2020-11-30 12:50 | IPNPDOC ---
Text Note Date of Service The patient was seen on 11/30/20. NOTE Subjective: -No acute events over the last 24h Objective: Vitals:See below General: Not in any acute distress, is awake, alert, oriented to person, place and time, visiting with son HEENT: Atraumatic and normocephalic CVS: irregularly irregular this morning, no noted murmur Lungs: There appears to be fair air entry bilaterally without any auscultated evidence of crackles, wheezing or rhonchi Abdomen: Normoactive sounds, soft without any distention or tenderness Extremities: Right lower extremity with [id number]-[id number] amputation in dressing, LLE without edema Labs: reviewed Hgb 9.1 WBC 9.2 Cr 0.6 Imaging: Extremity CT 10/05: 1. There is a large soft tissue ulceration defect seen in the medial heel pad of the right foot, best seen on image 108 of series 303. 2. Medial to the soft tissue defect there is a fluid and gas collection, likely an abscess, measuring 2.8 x 2.1 cm transversely on image 61 of series 302 and measuring 1.6 cm in craniocaudal dimension on image 104 of series 303. 3. The bony cortical outline and marrow defect underlying the soft tissue defect are suggestive of acute osteomyelitis on image 50 of series 302. 4. No acute fractures. 5. Chronic calcific enthesopathy is seen in the proximal Achilles on image 6 of series 302. Foot XR 10/07: Postsurgical changes at the posterior aspect of calcaneal process. No immediate complication is evident. Head CT 10/20: Mild generalized volume loss. No acute intracranial abnormality. CTA head 10/20: 1. Occluded right middle cerebral artery proximally. 2. Corresponding hypodensity in the right middle cerebral artery territory suggestive of acute infarct. No acute hemorrhage. CXR 11/03: Area of increased density in the right apex should be evaluated further with PA and lateral views. Slight cardiac enlargement. No evidence of failure or pneumonia. PICC line in place with tip in superior vena cava. Carotid Vascular US 10/20: According to the SRU criteria there is less than 50% stenosis of the internal carotid artery bilaterally. This is secondary to both calcified and noncalcified plaque formation CT Head 10/20: 1. There has been no change since a study done earlier in the day. No interval hemorrhage. 2. Minimal chronic ischemic white matter change and atrophy with ill-defined a reas of slightly decreased attenuation in the right cerebral hemisphere centrally and subcortical parietal lobe which are unchanged. ECHO 10/20: 1. Study is of acceptable technical quality; underlying atrial fibrillation and ventricular pacing. 2. Normal LV size with moderate left ventricular hypertrophy and estimated LVEF of 45 to 50%. Septal wall motion abnormality likely related to pacing. 3. No hemodynamically significant aortic valvular disease in spite of prominent valvular sclerosis. 4. Mild to moderate mitral insufficiency. 5. Elevated central venous pressure and mild pulmonary hypertension. 6. Severe biatrial enlargement. 7. Suspicion for left to right shunt across atrial septum based on color Doppler imaging. 8. "Negative Bubble Study." Esophageal XR 10/21: The patient is able to be given all consistencies performed today. However, there is an increase risk with ingestion of all food because of delayed triggering and pooling in the vallecula. CT head 10/21: New area of abnormal decreased attenuation as described above consistent with an acute nonhemorrhagic infarction. MRI examination of the brain is recommended. CT head 10/22: Who ventricular nucleus and external capsule nonhemorrhagic infarct showing slight increase when compared with yesterday's examination. No evidence of hemorrhage or mass effect. CXR 10/22: Stable cardiomegaly. Cardiac electrodes remain in place Prominent lung markings -- perhaps [id number] vascular congestion. Diffuse interstitial pneumonitis cannot be excluded. Clinical correlation is needed. Follow-up is suggested, as symptoms warrant. CXR 10/25: 1. There is moderate congestive change with moderate pulmonary edema. 2. Mild left basilar atelectasis or infiltrate. Foot XR 11/06: Soft tissue and bony defect along the posterior aspect of the foot involving calcaneus. Esophagus XR 11/11: Flash penetration as described above, a detailed report will be provided by speech pathology. 3.3 minutes of fluoroscopy time was utilized for this procedure. Some fluoroscopic images are performed with last image hold technology. These images require no additional radiation CT Head 11/11: Again noted is a subacute infarction in the distribution of the right lenticulostriate arteries. There are no complications evident. No significant change. Shoulder XR 11/16: No evidence of fracture or dislocation. There is arthritis of the acromioclavicular and glenohumeral joints. Arterial US 11/18: Occlusion distal right superficial femoral artery and proximal popliteal artery with reconstitution of the distal popliteal artery. Very slow flow in the distal calf arteries at the ankle. Assessment: 65-year-old Faroese speaking W with a PMHx of HTN, CAD, Chronic A. fib, CHF, PVD, DLP, DM2, Gout, Vertigo, GERD who presented to the ER with complaints of infected R heel wound who ultimately had an AKA after failed debridement and angioplasty and antibiotics, who is now recovering with course c/b R MCA stroke and post AKA bleeding. Infected RLE heel ulcer with acute osteomyelitis of the calcaneum; in the setting of vascular compromise; s/p R AKA - Dressing in place and intact - Leukocytosis and CRP downtrending - Wound cultures 10/05: Escherichia coli, Morganella morganii, Enterococcus faecalis, MRSA - Wound cultures 10/07: Morganella morganii, Escherichia coli, Enterococcus faecalis - Wound culture 11/14: Pseudomonas aeruginosa - s/p Posterior resection of the right calcaneum on 10/07/[address] Bone - s/p Vascular intervention or R SFA angioplasty on 10/12/[address] Maya - s/p R AKA on 11/21/[address] Venegas c/b bleeding s/p exploration and stopping bleeding on 11/26 - Imaging noted above - Podiatry, Vascular surgery, Interventional radiology, and infectious disease on consultation - s/p Antibiotic therapy; s/p Levaquin; Completed Zosyn (6 week course) - c/w PT and OT; will require rehabilitation moving forward Postop stump bleeding: i/s/o recent surgery, recent elevated INR and therapeutic lovenox - s/p emergent exploration, and control of bleeding from right above-knee amputation stump on 11/26 - H/H now stable, on eliquis 5mg BID - s/p 6u pRBCs this admission and 2FFP - daily CBC - vascular surgery onboard, appreciate recs Acute right MCA stroke with left sided weakness - Patient had code stroke called on 8/10 AM - Imaging noted above; Unable to get MRI 2/2 PPM - c/w ASA 81 - H/H now stable, on eliquis 5mg BID - c/w Atorvastatin 80 - Neurology was consulted; appreciated their input Chronic Systolic CHF - No evidence of decompensation / fluid overload - Patient remains saturating at 96% on room air - s/p AICD / Biventricular pacing - c/w Bumetanide, BB and ACEi w/ hold parameters Dysphagia - c/w Speech therapy recommendations s/p Troponin elevation - likely 2/2 demand ischemia / NSTEMI (Type II) - No chest pain, SOB or palpitations - Troponin has normalized - ECHO Noted above - Serial EKGs have shown no significant change - c/w Carvedilol, ASA 81 - H/H now stable, on eliquis 5mg BID s/p Gram-negative bacteremia - Blood cultures 10/05: (1 of 2) Morganella Morganii - Blood cultures 10/06: Negative at 5 days - s/p Antibiotic therapy Anemia - s/p 6 units PRBC and 2FFP. - H/H now stable, on eliquis 5mg BID - goal >8 IDDM2 - c/w ISS and Levemir HTN - BP well controlled - c/w Carvedilol, Bumetanide, Lisinopril, Amlodipine with hold parameters Chronic Atrial fibrillation - c/w rate control with Carvedilol - H/H now stable, on eliquis 5mg BID DLP - c/w Gemfibrozil Gout - c/w Febuxostat CKD3 - Cr at baseline Neuropathy - c/w Amitriptyline GI prophylaxis - c/w Protonix DVT prophylaxis - H/H now stable, on eliquis 5mg BID Covid-19 exposure -Asymptomatic at this time -Repeat covid-19 testing was negative -on contact and droplet precautions Disposition: Pending clinical improvement, with surgical team recs, will need rehab thereafter VSRadha, I+O VS, Radha, I+O Laboratory Tests 11/30/20 06:20 Vital Signs Date Time Temp Pulse Resp B/P (MAP) Pulse Ox O2 Delivery O2 Flow Rate FiO2 11/30/20 08:43 60 135/63 11/30/20 08:00 98.2 17 98 Room Air 11/26/20 12:20 2.0 I&O- Last 24 Hours up to 6 AM 11/30/20 06:00 Intake Total 1020 ml Output Total 675 ml Balance 345 ml TAYLA KINNEY MD Nov 30, 2020 09:38
[2020-11-30 20:00] VITALS: BP 118/57
[2020-11-30] MEDS: AMITRIPTYLINE 50 MG TAB PO SCH (20:20)
[2020-12-01] VITALS: BP 130/62
[2020-12-01 03:57] VITALS: BP 139/62
[2020-12-01 04:02] LABS: HEMATOCRIT 29.2 % (36.0-47.0); HEMOGLOBIN 9.3 g/dl (12.0-15.5); MEAN CORPUSCULAR HEMOGLOBIN 28.6 pg (27.0-33.0); MEAN CORPUSCULAR HGB CONC 31.8 g/dl (32.0-36.5); MEAN CORPUSCULAR VOLUME 89.8 fl (80.0-96.0); PLATELET COUNT, AUTOMATED 478 10^3/uL (150-450); RED BLOOD COUNT 3.25 10^6/uL (4.00-5.40)
[2020-12-01 04:47] LABS: BLOOD UREA NITROGEN 18 MG/DL (7-18); CALCIUM LEVEL 7.7 MG/DL (8.8-10.2); CARBON DIOXIDE LEVEL 29 MEQ/L (21-32); CHLORIDE LEVEL 100 MEQ/L (98-107); CREATININE FOR GFR 0.52 MG/DL (0.55-1.30); GLOMERULAR FILTRATION RATE > 60.0 (>45); GLUCOSE, FASTING 108 MG/DL (70-100); POTASSIUM SERUM 3.9 MEQ/L (3.5-5.1); SODIUM LEVEL 136 MEQ/L (136-145)
[2020-12-01] MEDS: SODIUM CHLORIDE 0.9% INJ 10 ML SYR IV SCH ×2 (05:13→20:20)
[2020-12-01] MEDS: HumaLOG INSULIN (NovoLOG) PER UNIT SC SCH ×4 (07:30→21:00)
[2020-12-01 07:48] VITALS: BP 128/62
[2020-12-01] MEDS: CARVedilol 12.5 MG TAB PO SCH ×2 (09:00→20:23)
[2020-12-01] MEDS: ATORVASTATIN 20 MG TAB PO SCH (09:43)
[2020-12-01] MEDS: PANTOPRAZOLE 40MG TAB (PROTONIX) PO SCH (09:43)
[2020-12-01] MEDS: FEBUXOSTAT 40 MG TABLET (ULORIC) PO SCH (09:43)
[2020-12-01] MEDS: SENOKOT S TAB PO SCH ×2 (09:43→20:20)
[2020-12-01] MEDS: BUMETANIDE 1 MG TAB PO SCH (09:44)
[2020-12-01] MEDS: ASPIRIN 81MG ENTERIC TABLET PO SCH (09:44)
[2020-12-01] MEDS: oxyCODONE 5MG TAB PO PRN ×2 (09:44→20:22)
[2020-12-01] MEDS: APIXABAN 5 MG TAB (ELIQUIS) PO SCH ×2 (09:45→20:21)
[2020-12-01] MEDS: ASCORBIC ACID 500 MG TAB PO SCH (09:45)
--- NOTE | 2020-12-01 11:52 | IPNPDOC ---
Text Note Date of Service The patient was seen on 12/01/20. NOTE Subjective: -No acute events over the last 24h Objective: Vitals:See below General: Not in any acute distress, is awake, alert, oriented to person, place and time, visiting with son HEENT: Atraumatic and normocephalic CVS: irregularly irregular this morning, no noted murmur Lungs: CTAB without any auscultated evidence of crackles, wheezing or rhonchi Abdomen: Normoactive sounds, soft without any distention or tenderness Extremities: Right lower extremity with [id number] amputation in dressing, LLE without edema Labs: reviewed, stable Imaging: Extremity CT 10/05: 1. There is a large soft tissue ulceration defect seen in the medial heel pad of the right foot, best seen on image 108 of series 303. 2. Medial to the soft tissue defect there is a fluid and gas collection, likely an abscess, measuring 2.8 x 2.1 cm transversely on image 61 of series 302 and measuring 1.6 cm in craniocaudal dimension on image 104 of series 303. 3. The bony cortical outline and marrow defect underlying the soft tissue defect are suggestive of acute osteomyelitis on image 50 of series 302. 4. No acute fractures. 5. Chronic calcific enthesopathy is seen in the proximal Achilles on image 6 of series 302. Foot XR 10/07: Postsurgical changes at the posterior aspect of calcaneal process. No immediate complication is evident. Head CT 10/20: Mild generalized volume loss. No acute intracranial abnormality. CTA head 10/20: 1. Occluded right middle cerebral artery proximally. 2. Corresponding hypodensity in the right middle cerebral artery territory suggestive of acute infarct. No acute hemorrhage. CXR 11/03: Area of increased density in the right apex should be evaluated further with PA and lateral views. Slight cardiac enlargement. No evidence of failure or pneumonia. PICC line in place with tip in superior vena cava. Carotid Vascular US 10/20: According to the SRU criteria there is less than 50% stenosis of the internal carotid artery bilaterally. This is secondary to both calcified and noncalcified plaque formation CT Head 10/20: 1. There has been no change since a study done earlier in the day. No interval hemorrhage. 2. Minimal chronic ischemic white matter change and atrophy with ill-defined areas of slightly decreased attenuation in the right cerebral hemisphere centrally and subcortical parietal lobe which are unchanged. ECHO 10/20: 1. Study is of acceptable technical quality; underlying atrial fibrillation and ventricular pacing. 2. Normal LV size with moderate left ventricular hypertrophy and estimated LVEF of 45 to 50%. Septal wall motion abnormality likely related to pacing. 3. No hemodynamically significant aortic valvular disease in spite of prominent valvular sclerosis. 4. Mild to moderate mitral insufficiency. 5. Elevated central venous pressure and mild pulmonary hypertension. 6. Severe biatrial enlargement. 7. Suspicion for left to right shunt across atrial septum based on color Doppler imaging. 8. "Negative Bubble Study." Esophageal XR 10/21: The patient is able to be given all consistencies performed today. However, there is an increase risk with ingestion of all food because of delayed triggering and pooling in the vallecula. CT head 10/21: New area of abnormal decreased attenuation as described above consistent with an acute nonhemorrhagic infarction. MRI examination of the brain is recommended. CT head 10/22: Who ventricular nucleus and external capsule nonhemorrhagic infarct showing slight increase when compared with yesterday's examination. No evidence of hemorrhage or mass effect. CXR 10/22: Stable cardiomegaly. Cardiac electrodes remain in place Prominent lung markings -- perhaps [id number] vascular congestion. Diffuse interstitial pneumonitis cannot be excluded. Clinical correlation is needed. Follow-up is suggested, as symptoms warrant. CXR 10/25: 1. There is moderate congestive change with moderate pulmonary edema. 2. Mild left basilar atelectasis or infiltrate. Foot XR 11/06: Soft tissue and bony defect along the posterior aspect of the foot involving calcaneus. Esophagus XR 11/11: Flash penetration as described above, a detailed report will be provided by speech pathology. 3.3 minutes of fluoroscopy time was utilized for this procedure. Some fluoroscopic images are performed with last image hold technology. These images require no additional radiation CT Head 11/11: Again noted is a subacute infarction in the distribution of the right lenticulostriate arteries. There are no complications evident. No significant change. Shoulder XR 11/16: No evidence of fracture or dislocation. There is arthritis of the acromioclavicular and glenohumeral joints. Arterial US 11/18: Occlusion distal right superficial femoral artery and proximal popliteal artery with reconstitution of the distal popliteal artery. Very slow flow in the distal calf arteries at the ankle. Assessment: 65-year-old Indonesian speaking W with a PMHx of HTN, CAD, Chronic A. fib, CHF, PVD, DLP, DM2, Gout, Vertigo, GERD who presented to the ER with complaints of infected R heel wound who ultimately had an AKA after failed debridement and angioplasty and antibiotics, who is now recovering with course c/b R MCA stroke and post AKA bleeding. Infected RLE heel ulcer with acute osteomyelitis of the calcaneum; in the setting of vascular compromise; s/p R AKA - Dressing in place and intact - Leukocytosis and CRP downtrending - Wound cultures 10/05: Escherichia coli, Morganella morganii, Enterococcus faecalis, MRSA - Wound cultures 10/07: Morganella morganii, Escherichia coli, Enterococcus inocencio calis - Wound culture 11/14: Pseudomonas aeruginosa - s/p Posterior resection of the right calcaneum on 10/07/[address] Bone - s/p Vascular intervention or R SFA angioplasty on 10/12/[address] Maya - s/p R AKA on 11/21/[address] Venegas c/b bleeding s/p exploration and stopping bleeding on 11/26 - Imaging noted above - Podiatry, Vascular surgery, Interventional radiology, and infectious disease on consultation - s/p Antibiotic therapy; s/p Levaquin; Completed Zosyn (6 week course) - c/w PT and OT; will require rehabilitation moving forward Postop stump bleeding: i/s/o recent surgery, recent elevated INR and therapeutic lovenox - s/p emergent exploration, and control of bleeding from right above-knee amputation stump on 11/26 - H/H now stable, on eliquis 5mg BID - s/p 6u pRBCs this admission and 2FFP - daily CBC - vascular surgery onboard, appreciate recs Acute right MCA stroke with left sided weakness - Patient had code stroke called on 8/10 AM - Imaging noted above; Unable to get MRI 2/2 PPM - c/w ASA 81 - H/H now stable, on eliquis 5mg BID - c/w Atorvastatin 80 - Neurology was consulted; appreciated their input Chronic Systolic CHF - No evidence of decompensation / fluid overload - Patient remains saturating at 96% on room air - s/p AICD / Biventricular pacing - c/w Bumetanide, BB and ACEi w/ hold parameters Dysphagia - c/w Speech therapy recommendations s/p Troponin elevation - likely 2/2 demand ischemia / NSTEMI (Type II) - No chest pain, SOB or palpitations - Troponin has normalized - ECHO Noted above - Serial EKGs have shown no significant change - c/w Carvedilol, ASA 81 - H/H now stable, on eliquis 5mg BID s/p Gram-negative bacteremia - Blood cultures 10/05: (1 of 2) Morganella Morganii - Blood cultures 10/06: Negative at 5 days - s/p Antibiotic therapy Anemia - s/p 6 units PRBC and 2FFP. - H/H now stable, on eliquis 5mg BID - goal >8 IDDM2 - c/w ISS and Levemir HTN - BP well controlled - c/w Carvedilol, Bumetanide, Lisinopril, Amlodipine with hold parameters Chronic Atrial fibrillation - c/w rate control with Carvedilol - H/H now stable, on eliquis 5mg BID DLP - c/w Gemfibrozil Gout - c/w Febuxostat CKD3 - Cr at baseline Neuropathy - c/w Amitriptyline GI prophylaxis - c/w Protonix DVT prophylaxis - H/H now stable, on eliquis 5mg BID Covid-19 exposure -Asymptomatic at this time -Repeat covid-19 testing was negative -on contact and droplet precautions Disposition: Pending clinical improvement, with surgical team recs, will need rehab thereafter VSRadha, I+O VSRadha, I+O Laboratory Tests 12/01/20 03:40 Vital Signs Date Time Temp Pulse Resp B/P (MAP) Pulse Ox O2 Delivery O2 Flow Rate FiO2 12/01/20 07:48 97.5 60 18 128/62 (84) 12/01/20 03:57 100 Room Air 11/26/20 12:20 2.0 I&O- Last 24 Hours up to 6 AM 12/01/20 06:00 Intake Total 900 ml Output Total 1950 ml Balance -1050 ml TAYLA KINNEY MD Dec 01, 2020 08:55
[2020-12-01] MEDS: MIRALAX *UNIT DOSE* 17GM PACKET PO PRN (12:14)
[2020-12-01] MEDS: MOM 30ML SUSPENSION UDC PO PRN (12:14)
[2020-12-01 15:18] VITALS: BP 146/66
[2020-12-01] MEDS: AMITRIPTYLINE 50 MG TAB PO SCH (20:21)
[2020-12-01 22:13] VITALS: BP 124/60
[2020-12-02] MEDS: SODIUM CHLORIDE 0.9% INJ 10 ML SYR IV SCH ×2 (05:35→18:02)
[2020-12-02 05:53] LABS: HEMATOCRIT 30.3 % (36.0-47.0); HEMOGLOBIN 9.8 g/dl (12.0-15.5); MEAN CORPUSCULAR HEMOGLOBIN 28.5 pg (27.0-33.0); MEAN CORPUSCULAR HGB CONC 32.3 g/dl (32.0-36.5); MEAN CORPUSCULAR VOLUME 88.1 fl (80.0-96.0); PLATELET COUNT, AUTOMATED 490 10^3/uL (150-450); RED BLOOD COUNT 3.44 10^6/uL (4.00-5.40); WHITE BLOOD COUNT 10.2 10^3/uL (4.0-10.0)
[2020-12-02 06:20] LABS: BLOOD UREA NITROGEN 14 MG/DL (7-18); CALCIUM LEVEL 8.3 MG/DL (8.8-10.2); CARBON DIOXIDE LEVEL 31 MEQ/L (21-32); CHLORIDE LEVEL 97 MEQ/L (98-107); CREATININE FOR GFR 0.49 MG/DL (0.55-1.30); GLOMERULAR FILTRATION RATE > 60.0 (>45); GLUCOSE, FASTING 125 MG/DL (70-100); POTASSIUM SERUM 3.9 MEQ/L (3.5-5.1); SODIUM LEVEL 135 MEQ/L (136-145)
[2020-12-02 06:21] VITALS: BP 116/81
[2020-12-02] MEDS: APIXABAN 5 MG TAB (ELIQUIS) PO SCH ×2 (08:22→21:47)
[2020-12-02] MEDS: FEBUXOSTAT 40 MG TABLET (ULORIC) PO SCH (08:22)
[2020-12-02] MEDS: ATORVASTATIN 20 MG TAB PO SCH (08:22)
[2020-12-02] MEDS: SENOKOT S TAB PO SCH ×2 (08:22→21:47)
[2020-12-02] MEDS: ASCORBIC ACID 500 MG TAB PO SCH (08:22)
[2020-12-02] MEDS: ASPIRIN 81MG ENTERIC TABLET PO SCH (08:22)
[2020-12-02] MEDS: CARVedilol 12.5 MG TAB PO SCH ×3 (08:25→21:49)
[2020-12-02] MEDS: MAGNESIUM OXIDE 400MG TAB (MAG-OX) PO SCH (08:25)
[2020-12-02] MEDS: PANTOPRAZOLE 40MG TAB (PROTONIX) PO SCH (08:26)
[2020-12-02] MEDS: oxyCODONE 5MG TAB PO PRN ×2 (08:27→21:48)
[2020-12-02] MEDS: BUMETANIDE 1 MG TAB PO SCH (08:27)
[2020-12-02] MEDS: HumaLOG INSULIN (NovoLOG) PER UNIT SC SCH ×4 (08:28→21:00)
--- NOTE | 2020-12-02 13:29 | IPNPDOC ---
Text Note Date of Service The patient was seen on 12/02/20. NOTE Subjective: -No acute events over the last 24h -Still pending definitive directions from vascular surgery on how nursing should be caring for her AKA stump as we prepare to send her to subacute rehab. I spoke with Dr. Alvarez on 12/01 and requested these recommendation to be documented in the chart. At this time, they are still pending. Objective: Vitals:See below General: Not in any acute distress, is awake, alert, oriented to person, place and time, visiting with son HEENT: Atraumatic and normocephalic CVS: irregularly irregular this morning, no noted murmur Lungs: CTAB without any auscultated evidence of crackles, wheezing or rhonchi Abdomen: Normoactive sounds, soft without any distention or tenderness Extremities: Right lower extremity with [id number]-[id number] amputation in dressing, LLE without edema Labs: reviewed, stable Imaging: Extremity CT 10/05: 1. There is a large soft tissue ulceration defect seen in the medial heel pad of the right foot, best seen on image 108 of series 303. 2. Medial to the soft tissue defect there is a fluid and gas collection, likely an abscess, measuring 2.8 x 2.1 cm transversely on image 61 of series 302 and measuring 1.6 cm in craniocaudal dimension on image 104 of series 303. 3. The bony cortical outline and marrow defect underlying the soft tissue defect are suggestive of acute osteomyelitis on image 50 of series 302. 4. No acute fractures. 5. Chronic calcific enthesopathy is seen in the proximal Achilles on image 6 of series 302. Foot XR 10/07: Postsurgical changes at the posterior aspect of calcaneal process. No immediate complication is evident. Head CT 10/20: Mild generalized volume loss. No acute intracranial abnormality. CTA head 10/20: 1. Occluded right middle cerebral artery proximally. 2. Corresponding hypodensity in the right middle cerebral artery territory suggestive of acute infarct. No acute hemorrhage. CXR 11/03: Area of increased density in the right apex should be evaluated further with PA and lateral views. Slight cardiac enlargement. No evidence of failure or pneumonia. PICC line in place with tip in superior vena cava. Carotid Vascular US 10/20: According to the SRU criteria there is less than 50% stenosis of the internal carotid artery bilaterally. This is secondary to both calcified and noncalcified plaque formation CT Head 10/20: 1. There has been no change since a study done earlier in the day. No interval hemorrhage. 2. Minimal chronic ischemic white matter change and atrophy with ill-defined areas of slightly decreased attenuation in the right cerebral hemisphere centrally and subcortical parietal lobe which are unchanged. ECHO 10/20: 1. Study is of acceptable technical quality; underlying atrial fibrillation and ventricular pacing. 2. Normal LV size with moderate left ventricular hypertrophy and estimated LVEF of 45 to 50%. Septal wall motion abnormality likely related to pacing. 3. No hemodynamically significant aortic valvular disease in spite of prominent valvular sclerosis. 4. Mild to moderate mitral insufficiency. 5. Elevated central venous pressure and mild pulmonary hypertension. 6. Severe biatrial enlargement. 7. Suspicion for left to right shunt across atrial septum based on color Doppler imaging. 8. "Negative Bubble Study." Esophageal XR 10/21: The patient is able to be given all consistencies performed today. However, ther e is an increase risk with ingestion of all food because of delayed triggering and pooling in the vallecula. CT head 10/21: New area of abnormal decreased attenuation as described above consistent with an acute nonhemorrhagic infarction. MRI examination of the brain is recommended. CT head 10/22: Who ventricular nucleus and external capsule nonhemorrhagic infarct showing slight increase when compared with yesterday's examination. No evidence of hemorrhage or mass effect. CXR 10/22: Stable cardiomegaly. Cardiac electrodes remain in place Prominent lung markings -- perhaps [id number] vascular congestion. Diffuse interstitial pneumonitis cannot be excluded. Clinical correlation is needed. Follow-up is suggested, as symptoms warrant. CXR 10/25: 1. There is moderate congestive change with moderate pulmonary edema. 2. Mild left basilar atelectasis or infiltrate. Foot XR 11/06: Soft tissue and bony defect along the posterior aspect of the foot involving calcaneus. Esophagus XR 11/11: Flash penetration as described above, a detailed report will be provided by speech pathology. 3.3 minutes of fluoroscopy time was utilized for this procedure. Some fluoroscopic images are performed with last image hold technology. These images require no additional radiation CT Head 11/11: Again noted is a subacute infarction in the distribution of the right lenticulostriate arteries. There are no complications evident. No significant change. Shoulder XR 11/16: No evidence of fracture or dislocation. There is arthritis of the acromioclavicular and glenohumeral joints. Arterial US 11/18: Occlusion distal right superficial femoral artery and proximal popliteal artery with reconstitution of the distal popliteal artery. Very slow flow in the distal calf arteries at the ankle. Assessment: 65-year-old British speaking W with a PMHx of HTN, CAD, Chronic A. fib, CHF, PVD, DLP, DM2, Gout, Vertigo, GERD who presented to the ER with complaints of infected R heel wound who ultimately had an AKA after failed debridement and angioplasty and antibiotics, who is now recovering with course c/b R MCA stroke and post AKA bleeding. Infected RLE heel ulcer with acute osteomyelitis of the calcaneum; in the setting of vascular compromise; s/p R AKA - Dressing in place and intact - Leukocytosis and CRP downtrending - Wound cultures 10/05: Escherichia coli, Morganella morganii, Enterococcus faeca lis, MRSA - Wound cultures 10/07: Morganella morganii, Escherichia coli, Enterococcus faecalis - Wound culture 11/14: Pseudomonas aeruginosa - s/p Posterior resection of the right calcaneum on 10/07/[address] Bone - s/p Vascular intervention or R SFA angioplasty on 10/12/[address] Maya - s/p R AKA on 11/21/[address] Venegas c/b bleeding s/p exploration and stopping bleeding on 11/26 - Imaging noted above - Podiatry, Vascular surgery, Interventional radiology, and infectious disease o n consultation - s/p Antibiotic therapy; s/p Levaquin; Completed Zosyn (6 week course) - c/w PT and OT; will require rehabilitation moving forward Postop stump bleeding: i/s/o recent surgery, recent elevated INR and therapeutic lovenox - s/p emergent exploration, and control of bleeding from right above-knee amputation stump on 11/26 - H/H now stable, on eliquis 5mg BID - s/p 6u pRBCs this admission and 2FFP - daily CBC - vascular surgery onboard, appreciate recs Acute right MCA stroke with left sided weakness - Patient had code stroke called on 8/10 AM - Imaging noted above; Unable to get MRI 2/2 PPM - c/w ASA 81 - H/H now stable, on eliquis 5mg BID - c/w Atorvastatin 80 - Neurology was consulted; appreciated their input Chronic Systolic CHF - No evidence of decompensation / fluid overload - Patient remains saturating at 96% on room air - s/p AICD / Biventricular pacing - c/w Bumetanide, BB and ACEi w/ hold parameters Dysphagia - c/w Speech therapy recommendations s/p Troponin elevation - likely 2/2 demand ischemia / NSTEMI (Type II) - No chest pain, SOB or palpitations - Troponin has normalized - ECHO Noted above - Serial EKGs have shown no significant change - c/w Carvedilol, ASA 81 - H/H now stable, on eliquis 5mg BID s/p Gram-negative bacteremia - Blood cultures 10/05: (1 of 2) Morganella Morganii - Blood cultures 10/06: Negative at 5 days - s/p Antibiotic therapy Anemia - s/p 6 units PRBC and 2FFP. - H/H now stable, on eliquis 5mg BID - goal >8 IDDM2 - c/w ISS and Levemir HTN - BP well controlled - c/w Carvedilol, Bumetanide, Lisinopril, Amlodipine with hold parameters Chronic Atrial fibrillation - c/w rate control with Carvedilol - H/H now stable, on eliquis 5mg BID DLP - c/w Gemfibrozil Gout - c/w Febuxostat CKD3 - Cr at baseline Neuropathy - c/w Amitriptyline GI prophylaxis - c/w Protonix DVT prophylaxis - H/H now stable, on eliquis 5mg BID Covid-19 exposure -Asymptomatic at this time -Repeat covid-19 testing was negative -on contact and droplet precautions Sacral pressure wound: -noted by nursing --> will consult Dr. Rashid for recs Disposition: Pending clinical improvement, with surgical team recs, will need rehab thereafter VSRadha, I+O VSRadha, I+O Laboratory Tests 12/02/20 05:34 Vital Signs Date Time Temp Pulse Resp B/P (MAP) Pulse Ox O2 Delivery O2 Flow Rate FiO2 12/02/20 08:57 18 Room Air 12/02/20 08:29 61 126/68 12/02/20 06:21 98.3 99 11/26/20 12:20 2.0 I&O- Last 24 Hours up to 6 AM 12/02/20 06:00 Intake Total 480 ml Output Total 750 ml Balance -270 ml TYALA KINNEY MD Dec 02, 2020 10:10
[2020-12-02] MEDS: ACETAMINOPHEN TAB 650MG DOSE (2X325MG) PO PRN (13:32)
[2020-12-02 14:00] VITALS: BP 129/90
[2020-12-02 20:30] VITALS: BP 139/70
[2020-12-02] MEDS: AMITRIPTYLINE 50 MG TAB PO SCH (21:47)
[2020-12-03] MEDS: SODIUM CHLORIDE 0.9% INJ 10 ML SYR IV SCH ×2 (05:00→08:20)
[2020-12-03] MEDS: oxyCODONE 5MG TAB PO PRN ×2 (05:11→22:05)
[2020-12-03 05:18] LABS: HEMATOCRIT 28.5 % (36.0-47.0); HEMOGLOBIN 9.1 g/dl (12.0-15.5); MEAN CORPUSCULAR HEMOGLOBIN 27.9 pg (27.0-33.0); MEAN CORPUSCULAR HGB CONC 31.9 g/dl (32.0-36.5); MEAN CORPUSCULAR VOLUME 87.4 fl (80.0-96.0); PLATELET COUNT, AUTOMATED 496 10^3/uL (150-450); RED BLOOD COUNT 3.26 10^6/uL (4.00-5.40); WHITE BLOOD COUNT 9.9 10^3/uL (4.0-10.0)
[2020-12-03 05:38] LABS: BLOOD UREA NITROGEN 11 MG/DL (7-18); CARBON DIOXIDE LEVEL 32 MEQ/L (21-32); CHLORIDE LEVEL 98 MEQ/L (98-107); CREATININE FOR GFR 0.46 MG/DL (0.55-1.30); GLOMERULAR FILTRATION RATE > 60.0 (>45); GLUCOSE, FASTING 120 MG/DL (70-100); POTASSIUM SERUM 4.1 MEQ/L (3.5-5.1); SODIUM LEVEL 134 MEQ/L (136-145)
[2020-12-03] MEDS: HumaLOG INSULIN (NovoLOG) PER UNIT SC SCH ×4 (08:14→21:00)
[2020-12-03] MEDS: MORPHINE 2 MG/ML 1ML VIAL (J2270) IV PRN (08:18)
[2020-12-03] MEDS: SENOKOT S TAB PO SCH ×2 (08:19→22:05)
[2020-12-03] MEDS: ASPIRIN 81MG ENTERIC TABLET PO SCH (08:19)
[2020-12-03] MEDS: FEBUXOSTAT 40 MG TABLET (ULORIC) PO SCH (08:19)
[2020-12-03] MEDS: BUMETANIDE 1 MG TAB PO SCH (08:20)
[2020-12-03] MEDS: ATORVASTATIN 20 MG TAB PO SCH (08:20)
[2020-12-03] MEDS: APIXABAN 5 MG TAB (ELIQUIS) PO SCH ×2 (08:21→22:06)
[2020-12-03] MEDS: PANTOPRAZOLE 40MG TAB (PROTONIX) PO SCH (08:22)
[2020-12-03] MEDS: ASCORBIC ACID 500 MG TAB PO SCH (08:22)
[2020-12-03] MEDS: CARVedilol 12.5 MG TAB PO SCH ×2 (08:23→22:04)
--- NOTE | 2020-12-03 10:55 | IPNPDOC ---
VS, I&O, 24H, Fishbone Vital Signs/I&O Vital Signs Date Time Temp Pulse Resp B/P (MAP) Pulse Ox O2 Delivery O2 Flow Rate FiO2 12/03/20 08:28 16 12/03/20 08:21 62 133/69 12/03/20 05:41 Room Air 12/02/20 20:30 99.0 100 I&O- Last 24 Hours up to 6 AM 12/03/20 06:00 Intake Total 780 ml Output Total 1300 ml Balance -520 ml Laboratory Data 24H LABS Laboratory Tests 2 12/02/20 11:20: Bedside Glucose (Misc Panel) 135H 12/02/20 16:42: Bedside Glucose (Misc Panel) 117H 12/02/20 21:24: Bedside Glucose (Misc Panel) 109 12/03/20 04:57: Nucleated Red Blood Cells % (auto) 0.0, Anion Gap 4L, Glomerular Filtration Rate > 60.0, Calcium Level 8.0L CBC/BMP Laboratory Tests 12/03/20 04:57 Attending Note Patient's Right AKA is healing well and WBC has normalized. Dry dressing changes with 4x4 gauzes, abd's, kerlix and jay wrap are all that are recommended. Patient may follow-up with Vascular Office in 1-2 weeks after discharge. SHAWN LEWIS MD Dec 03, 2020 10:55
[2020-12-03] MEDS ORDERED: SENN-52 PO (11:37)
[2020-12-03] MEDS ORDERED: ATOR80TA59 PO (11:37)
[2020-12-03] MEDS ORDERED: OXYC-517 PO (11:37)
[2020-12-03] MEDS ORDERED: ASPI-551 PO (11:37)
[2020-12-03] MEDS ORDERED: MIRA1POW3 PO (11:37)
[2020-12-03] MEDS ORDERED: ELIQ5TAB PO (11:37)
--- NOTE | 2020-12-03 12:51 | DS.PDOC ---
Discharge Summary General Date of Admission Oct 05, 2020 at 12:59 Date of Discharge 12/03/2020 Attending Physician: TAYLA KINNEY MD Discharge Summary PROCEDURES PERFORMED DURING STAY: -RLE wound debridement and partial calcaneal resection by Dr. Bone and application of wound vacuum-assisted closure (VAC) on 10/07/20 -Right lower extremity arteriogram through left femoral access on 10/13/2020 along with right distal superficial femoral artery and right posterior tibial artery balloon angioplasty -R AKA on 11/21/[address] Venegas -R AKA exploration and stopping of bleeding on 11/[address] Venegas ADMITTING DIAGNOSES: R diabetic heel ulcer DISCHARGE DIAGNOSES: Infected RLE heel ulcer with acute osteomyelitis of the calcaneum; in the setting of PVD s/p Posterior resection of the right calcaneum on 10/07/[address] Bone, s/p R SFA angioplasty on 10/12/[address] Maya and eventual R AKA on 11/21/[address] Venegas c/b bleeding s/p exploration and stopping bleeding on 11/26 Acute right MCA stroke with left sided weakness Chronic Systolic CHF Dysphagia Demand ischemia / NSTEMI (Type II) Gram-negative bacteremia w/ Morganella Morganii Acute on chronic Anemia w/ postop bleeding HTN Chronic Atrial fibrillation HLD Gout CKD3 Chronic peripheral Neuropathy GERD Covid-19 exposure IDDM c/b neuropathy and retinopathy COMPLICATIONS/CHIEF COMPLAINT: R Diabetic Heel Ulcer. HISTORY OF PRESENT ILLNESS: On admission she was found to have an abscess of the right foot and osteomyelitis of the calcaneum, for which she underwent debridement and partial calcaneal resection by Dr. Bone and application of wound vacuum-assisted closure (VAC) on 10/07/20. She was managed with intravenous antibiotics, initially with Zosyn and Zyvox, which are currently switched to levofloxacin and completed 6 weeks of antibiotics in total. Of note, wound cultures on 10/05 grew Escherichia coli, Morganella morganii, Enterococcus faecalis, MRSA, on 10/07 grew Morganella morganii, Escherichia coli, Enterococcus faecalis, and on 11/14 grew Pseudomonas aeruginosa. She was evaluated for peripheral arterial disease (PAD) by Dr. Andria Maya, interventional radiologist, and she underwent right lower extremity arteriogram through left femoral access on 10/13/2020 along with right distal superficial femoral artery and right posterior tibial artery balloon angioplasty. Unfortunately she eventually had to have an R AKA on 11/21/[address] Venegas that was c/b bleeding s/p exploration and stopping bleeding on 11/26. Her course was also c/b noted acute left-sided hemiparesis on 10/20/2020, and a stroke workup was performed, which revealed occluded right middle cerebral artery proximally with hypodensity in the right middle cerebral artery (MCA) territory suggestive of acute infarct on CT of the and she was started on ASA 81 in addition to full anticoagulation at that time that was later held when her AKA stump bled and she was eventually transitioned to eliquis when the bleeding stopped. Her course was also c/b a covid-19 exposoure that occured on 11/21 and thankfully she never developed pulmonary symptoms, remained on room air, afebrile and tested negative twice on 11/25 and on 12/03. She was on droplet isolation otherwise. The rest of her hospital course by issue is detailed below. At this time, she is now being discharge to [facility] rehab. Infected RLE heel ulcer with acute osteomyelitis of the calcaneum; in the setting of vascular compromise: - Wound cultures 10/05: Escherichia coli, Morganella morganii, Enterococcus faecalis, MRSA - Wound cultures 10/07: Morganella morganii, Escherichia coli, Enterococcus faecalis - Wound culture 11/14: Pseudomonas aeruginosa - s/p Posterior resection of the right calcaneum on 10/07/[address] Bone - s/p Vascular intervention or R SFA angioplasty on 10/12/[address] Maya - s/p R AKA on 11/21/[address] Venegas c/b bleeding s/p exploration and stopping bleeding on 11/26 - Podiatry, Vascular surgery, Interventional radiology, and infectious disease were on consultation - s/p Antibiotic therapy; s/p Levaquin; Completed Zosyn (6 week course) Postop stump bleeding: i/s/o recent surgery, recent elevated INR and therapeutic lovenox - s/p emergent exploration, and control of bleeding from right above-knee amputation stump on 11/26 - H/H now stable, on eliquis 5mg BID - s/p 6u pRBCs this admission and 2FFP Acute right MCA stroke with left sided weakness - Patient had code stroke called on 810 AM - Imaging noted below. Unable to get MRI 2/2 PPM - c/w ASA 81 - On eliquis 5mg BID - c/w Atorvastatin 80 - Neurology was consulted; appreciated their input Chronic Systolic CHF - No evidence of decompensation / fluid overload - s/p AICD / Biventricular pacing - c/w Bumetanide, BB and ACEi w/ hold parameters Dysphagia - c/w Speech therapy recommendations s/p Troponin elevation - likely 2/2 demand ischemia / NSTEMI (Type II) - No chest pain, SOB or palpitations - Troponin has normalized - ECHO Noted above - Serial EKGs have shown no significant change - c/w Carvedilol, ASA 81 - H/H now stable, on eliquis 5mg BID s/p Gram-negative bacteremia - Blood cultures 10/05: (1 of 2) Morganella Morganii - Blood cultures 10/06: Negative at 5 days - s/p Antibiotic therapy Anemia - s/p 6 units PRBC and 2FFP. - H/H now stable, on eliquis 5mg BID - goal >8 IDDM2 - c/w ISS and Levemir HTN - BP well controlled - c/w Carvedilol, Bumetanide, Lisinopril, Amlodipine with hold parameters Chronic Atrial fibrillation - c/w rate control with Carvedilol - H/H now stable, on eliquis 5mg BID DLP - c/w Gemfibrozil and lipitor 80mg Gout - c/w Febuxostat CKD3 - Cr at baseline Neuropathy - Amitriptyline GI prophylaxis - Protonix Covid-19 exposure -Asymptomatic -Repeat covid-19 testing was negative on 11/25 and 12/03 DISCHARGE MEDICATIONS: Please see below. ALLERGIES: Please see below. PHYSICAL EXAMINATION ON DISCHARGE: VITAL SIGNS: Please see below. General: Not in any acute distress, is awake, alert, oriented to person, place and time HEENT: Atraumatic and normocephalic CVS: irregularly irregular this morning, no noted murmur Lungs: CTAB without any auscultated evidence of crackles, wheezing or rhonchi, breathing comfortably on room air, speaking on the telephone Abdomen: Normoactive sounds, soft without any distention or tenderness Extremities: Right lower extremity with [id number] amputation in dressing, LLE without edema LABORATORY DATA: Please see below. IMAGING: Extremity CT 10/05: 1. There is a large soft tissue ulceration defect seen in the medial heel pad of the right foot, best seen on image 108 of series 303. 2. Medial to the soft tissue defect there is a fluid and gas collection, likely an abscess, measuring 2.8 x 2.1 cm transversely on image 61 of series 302 and measuring 1.6 cm in craniocaudal dimension on image 104 of series 303. 3. The bony cortical outline and marrow defect underlying the soft tissue defect are suggestive of acute osteomyelitis on image 50 of series 302. 4. No acute fractures. 5. Chronic calcific enthesopathy is seen in the proximal Achilles on image 6 of series 302. Foot XR 10/07: Postsurgical changes at the posterior aspect of calcaneal process. No immediate complication is evident. Head CT 10/20: Mild generalized volume loss. No acute intracranial abnormality. CTA head 10/20: 1. Occluded right middle cerebral artery proximally. 2. Corresponding hypodensity in the right middle cerebral artery territory suggestive of acute infarct. No acute hemorrhage. CXR 11/03: Area of increased density in the right apex should be evaluated further with PA and lateral views. Slight cardiac enlargement. No evidence of failure or pneumonia. PICC line in place with tip in superior vena cava. Carotid Vascular US 10/20: According to the SRU criteria there is less than 50% stenosis of the internal carotid artery bilaterally. This is secondary to both calcified and noncalcified plaque formation CT Head 10/20: 1. There has been no change since a study done earlier in the day. No interval h emorrhage. 2. Minimal chronic ischemic white matter change and atrophy with ill-defined areas of slightly decreased attenuation in the right cerebral hemisphere centrally and subcortical parietal lobe which are unchanged. ECHO 10/20: 1. Study is of acceptable technical quality; underlying atrial fibrillation and ventricular pacing. 2. Normal LV size with moderate left ventricular hypertrophy and estimated LVEF of 45 to 50%. Septal wall motion abnormality likely related to pacing. 3. No hemodynamically significant aortic valvular disease in spite of prominent valvular sclerosis. 4. Mild to moderate mitral insufficiency. 5. Elevated central venous pressure and mild pulmonary hypertension. 6. Severe biatrial enlargement. 7. Suspicion for left to right shunt across atrial septum based on color Doppler imaging. 8. "Negative Bubble Study." Esophageal XR 10/21: The patient is able to be given all consistencies performed today. However, there is an increase risk with ingestion of all food because of delayed triggering and pooling in the vallecula. CT head 10/21: New area of abnormal decreased attenuation as described above consistent with an acute nonhemorrhagic infarction. MRI examination of the brain is recommended. CT head 10/22: Who ventricular nucleus and external capsule nonhemorrhagic infarct showing slight increase when compared with yesterday's examination. No evidence of hemorrhage or mass effect. CXR 10/22: Stable cardiomegaly. Cardiac electrodes remain in place Prominent lung markings -- perhaps [id number] vascular congestion. Diffuse interstitial pneumonitis cannot be excluded. Clinical correlation is needed. Follow-up is suggested, as symptoms warrant. CXR 10/25: 1. There is moderate congestive change with moderate pulmonary edema. 2. Mild left basilar atelectasis or infiltrate. Foot XR 11/06: Soft tissue and bony defect along the posterior aspect of the foot involving calcaneus. Esophagus XR 11/11: Flash penetration as described above, a detailed report will be provided by speech pathology. 3.3 minutes of fluoroscopy time was utilized for this procedure. Some fluoroscopic images are performed with last image hold technology. These images require no additional radiation CT Head 11/11: Again noted is a subacute infarction in the distribution of the right lenticulostriate arteries. There are no complications evident. No significant change. Shoulder XR 11/16: No evidence of fracture or dislocation. There is arthritis of the acro mioclavicular and glenohumeral joints. Arterial US 11/18: Occlusion distal right superficial femoral artery and proximal popliteal artery with reconstitution of the distal popliteal artery. Very slow flow in the distal calf arteries at the ankle. PROGNOSIS: Good ACTIVITY: As tolerated DIET: consistent carb, 2g sodium DISCHARGE PLAN: [facility] with close PCP/GP f/u within 7d and vascular s urgery follow up within 7-10d DISPOSITION: [facility] DISCHARGE INSTRUCTIONS: [facility] with close PCP/GP f/u within 7d and vascular surgery follow up within 7-10d ITEMS TO FOLLOWUP ON ON OUTPATIENT: s/p recent AKA, f/u with vascular surgery PCP/GP follow up for all other issues: DM, recent CVA, Afib, new eliquis DISCHARGE CONDITION: Stable TIME SPENT ON DISCHARGE: 67 minutes. Vital Signs/I&Os Vital Signs Date Time Temp Pulse Resp B/P (MAP) Pulse Ox O2 Delivery O2 Flow Rate FiO2 12/03/20 08:21 62 133/69 12/03/20 08:18 18 12/03/20 05:41 Room Air 12/02/20 20:30 99.0 100 I&O- Last 24 Hours up to 6 AM 12/03/20 06:00 Intake Total 780 ml Output Total 1300 ml Balance -520 ml Laboratory Data Labs 24H Laboratory Tests 2 12/02/20 16:42: Bedside Glucose (Misc Panel) 117H 12/02/20 21:24: Bedside Glucose (Misc Panel) 109 12/03/20 04:57: Nucleated Red Blood Cells % (auto) 0.0, Anion Gap 4L, Glomerular Filtration Rate > 60.0, Calcium Level 8.0L 12/03/20 11:07: Coronavirus (COVID-19)(PCR) NEGATIVE 12/03/20 11:41: Bedside Glucose (Misc Panel) 108 CBC/BMP Laboratory Tests 12/03/20 04:57 FSBS Laboratory Tests Test 12/02/20 16:42 12/02/20 21:24 12/03/20 11:41 Range/Units Bedside Glucose (Misc Panel) 117 109 108 80-115 MG/DL Discharge Medications Scheduled Amitriptyline HCl (Amitriptyline HCl) 50 Mg Tablet, 50 MG PO QHS, (Reported) Amlodipine Besylate (Amlodipine Besylate) 5 Mg Tablet, 2.5 MG PO DAILY, (Reported) Apixaban (Eliquis) 5 Mg Tablet, 5 MG PO BID Ascorbic Acid (Ascorbic Acid) 500 Mg Tablet, 500 MG PO DAILY, (Reported) Aspirin (Aspirin EC) 81 Mg Tablet.dr, 81 MG PO DAILY Atorvastatin Calcium (Atorvastatin Calcium) 80 Mg Tablet, 1 TAB PO DAILY Bumetanide (Bumetanide) 1 Mg Tablet, 1 MG PO DAILY, (Reported) Carvedilol (Carvedilol) 12.5 Mg Tablet, 12.5 MG PO BID, (Reported) Digoxin (Digoxin) 250 Mcg Tablet, 250 MCG PO DAILY, (Reported) Febuxostat (Febuxostat) 40 Mg Tablet, 40 MG PO DAILY, (Reported) Gemfibrozil (Lopid) 600 Mg Tablet, 600 MG PO BID, (Reported) Insulin NPH Hum/Reg Insulin Hm (Humulin 70-30 Vial) 100 Unit/1 Ml Vial, 50 UNITS SC DAILY, (Reported) Insulin NPH Hum/Reg Insulin Hm (Humulin 70-30 Vial) 100 Unit/1 Ml Vial, 30 UNITS SC QHS, (Reported) Lisinopril (Lisinopril) 10 Mg Tablet, 10 MG PO DAILY, (Reported) Magnesium Oxide (Magnesium Oxide) 400 Mg Tablet, 400 MG PO Q2D, (Reported) Metformin HCl (Metformin HCl) 500 Mg Tablet, 500 MG PO BIDWM, (Reported) Pantoprazole Sodium (Pantoprazole Sodium) 40 Mg Tablet.dr, 40 MG PO DAILY, (Reported) Sennosides/Docusate Sodium (Senna Plus Tablet) 1 Each Tablet, 2 TAB PO BID Warfarin Sodium (Warfarin Sodium) 3 Mg Tablet, 3 MG PO QHS, (Reported) Scheduled PRN Oxycodone HCl (Oxycodone HCl) 5 Mg Tablet, 5 MG PO Q6HP PRN for MODERATE PAIN (PS 5-7) Polyethylene Glycol 3350 (Miralax) 17 Gm Powd.pack, 1 PKT PO DAILYPRN PRN for CONSTIPATION Allergies Coded Allergies: trimethoprim (Verified Allergy, Mild, 10/28/20) TAYLA KINNEY MD Dec 03, 2020 12:51
[2020-12-03 14:00] VITALS: BP 125/63
[2020-12-03] MEDS: SODIUM CHLORIDE 0.9% INJ 10 ML SYR IV PRN (17:41)
[2020-12-03 21:22] VITALS: BP 133/62
[2020-12-03] MEDS: AMITRIPTYLINE 50 MG TAB PO SCH (22:06)
[2020-12-04] MEDS: SODIUM CHLORIDE 0.9% INJ 10 ML SYR IV SCH ×2 (05:20→18:27)
[2020-12-04 05:45] VITALS: BP 134/62
[2020-12-04 05:46] LABS: HEMATOCRIT 28.5 % (36.0-47.0); HEMOGLOBIN 9.1 g/dl (12.0-15.5); MEAN CORPUSCULAR HEMOGLOBIN 28.3 pg (27.0-33.0); MEAN CORPUSCULAR HGB CONC 31.9 g/dl (32.0-36.5); MEAN CORPUSCULAR VOLUME 88.8 fl (80.0-96.0); PLATELET COUNT, AUTOMATED 504 10^3/uL (150-450); RED BLOOD COUNT 3.21 10^6/uL (4.00-5.40); WHITE BLOOD COUNT 9.6 10^3/uL (4.0-10.0)
[2020-12-04 06:07] LABS: BLOOD UREA NITROGEN 10 MG/DL (7-18); CARBON DIOXIDE LEVEL 32 MEQ/L (21-32); CHLORIDE LEVEL 96 MEQ/L (98-107); CREATININE FOR GFR 0.51 MG/DL (0.55-1.30); GLOMERULAR FILTRATION RATE > 60.0 (>45); GLUCOSE, FASTING 130 MG/DL (70-100); POTASSIUM SERUM 4.2 MEQ/L (3.5-5.1); SODIUM LEVEL 135 MEQ/L (136-145)
[2020-12-04] MEDS: HumaLOG INSULIN (NovoLOG) PER UNIT SC SCH ×4 (08:03→21:00)
[2020-12-04] MEDS: SENOKOT S TAB PO SCH ×2 (08:04→21:43)
[2020-12-04] MEDS: CARVedilol 12.5 MG TAB PO SCH ×2 (08:05→21:00)
[2020-12-04] MEDS: APIXABAN 5 MG TAB (ELIQUIS) PO SCH ×2 (08:05→21:42)
[2020-12-04] MEDS: MAGNESIUM OXIDE 400MG TAB (MAG-OX) PO SCH (08:05)
[2020-12-04] MEDS: ASPIRIN 81MG ENTERIC TABLET PO SCH (08:05)
[2020-12-04] MEDS: BUMETANIDE 1 MG TAB PO SCH (08:06)
[2020-12-04] MEDS: FEBUXOSTAT 40 MG TABLET (ULORIC) PO SCH (08:06)
[2020-12-04] MEDS: ATORVASTATIN 20 MG TAB PO SCH (08:06)
[2020-12-04] MEDS: ASCORBIC ACID 500 MG TAB PO SCH (08:06)
[2020-12-04] MEDS: PANTOPRAZOLE 40MG TAB (PROTONIX) PO SCH (08:06)
[2020-12-04] MEDS: oxyCODONE 5MG TAB PO PRN ×2 (08:13→14:28)
--- NOTE | 2020-12-04 09:56 | IPNPDOC ---
Text Note Date of Service The patient was seen on 12/04/20. NOTE Subjective: -No acute events over the last 24h -was going to discharge her to [place] [facility] yesterday but was declined due to not being vaccinated for covid-19. Discussed with ID, working on getting her vaccinated soon. Objective: Vitals:See below General: Not in any acute distress, is awake, alert, oriented to person, place and time, visiting with son HEENT: Atraumatic and normocephalic CVS: irregularly irregular this morning, no noted murmur Lungs: CTAB without any auscultated evidence of crackles, wheezing or rhonchi Abdomen: Normoactive sounds, soft without any distention or tenderness Extremities: Right lower extremity with [id number] amputation in dressing, LLE without edema Labs: reviewed, stable Imaging: Extremity CT 10/05: 1. There is a large soft tissue ulceration defect seen in the medial heel pad of the right foot, best seen on image 108 of series 303. 2. Medial to the soft tissue defect there is a fluid and gas collection, likely an abscess, measuring 2.8 x 2.1 cm transversely on image 61 of series 302 and measuring 1.6 cm in craniocaudal dimension on image 104 of series 303. 3. The bony cortical outline and marrow defect underlying the soft tissue defect are suggestive of acute osteomyelitis on image 50 of series 302. 4. No acute fractures. 5. Chronic calcific enthesopathy is seen in the proximal Achilles on image 6 of series 302. Foot XR 10/07: Postsurgical changes at the posterior aspect of calcaneal process. No immediate complication is evident. Head CT 10/20: Mild generalized volume loss. No acute intracranial abnormality. CTA head 10/20: 1. Occluded right middle cerebral artery proximally. 2. Corresponding hypodensity in the right middle cerebral artery territory suggestive of acute infarct. No acute hemorrhage. CXR 11/03: Area of increased density in the right apex should be evaluated further with PA and lateral views. Slight cardiac enlargement. No evidence of failure or pneumonia. PICC line in place with tip in superior vena cava. Carotid Vascular US 10/20: According to the SRU criteria there is less than 50% stenosis of the internal carotid artery bilaterally. This is secondary to both calcified and noncalcified plaque formation CT Head 10/20: 1. There has been no change since a study done earlier in the day. No interval hemorrhage. 2. Minimal chronic ischemic white matter change and atrophy with ill-defined areas of slightly decreased attenuation in the right cerebral hemisphere centrally and subcortical parietal lobe which are unchanged. ECHO 10/20: 1. Study is of acceptable technical quality; underlying atrial fibrillation and ventricular pacing. 2. Normal LV size with moderate left ventricular hypertrophy and estimated LVEF of 45 to 50%. Septal wall motion abnormality likely related to pacing. 3. No hemodynamically significant aortic valvular disease in spite of prominent valvular sclerosis. 4. Mild to moderate mitral insufficiency. 5. Elevated central venous pressure and mild pulmonary hypertension. 6. Severe biatrial enlargement. 7. Suspicion for left to right shunt across atrial septum based on color Doppler imaging. 8. "Negative Bubble Study." Esophageal XR 10/21: The patient is able to be given all consistencies performed today. However, there is an increase risk with ingestion of all food because of delayed triggering and pooling in the vallecula. CT head 10/21: New area of abnormal decreased attenuation as described above consistent with an acute nonhemorrhagic infarction. MRI examination of the brain is recommended. CT head 10/22: Who ventricular nucleus and external capsule nonhemorrhagic infarct showing slight increase when compared with yesterday's examination. No evidence of hemorrhage or mass effect. CXR 10/22: Stable cardiomegaly. Cardiac electrodes remain in place Prominent lung markings -- perhaps [id number] vascular congestion. Diffuse interstitial pneumonitis cannot be excluded. Clinical correlation is needed. Follow-up is suggested, as symptoms warrant. CXR 10/25: 1. There is moderate congestive change with moderate pulmonary edema. 2. Mild left basilar atelectasis or infiltrate. Foot XR 11/06: Soft tissue and bony defect along the posterior aspect of the foot involving calcaneus. Esophagus XR 11/11: Flash penetration as described above, a detailed report will be provided by speech pathology. 3.3 minutes of fluoroscopy time was utilized for this procedure. Some fluoroscopic images are performed with last image hold technology. These images require no additional radiation CT Head 11/11: Again noted is a subacute infarction in the distribution of the right lenticulostriate arteries. There are no complications evident. No significant change. Shoulder XR 11/16: No evidence of fracture or dislocation. There is arthritis of the acromioclavicular and glenohumeral joints. Arterial US 11/18: Occlusion distal right superficial femoral artery and proximal popliteal artery with reconstitution of the distal popliteal artery. Very slow flow in the distal calf arteries at the ankle. Assessment: 65-year-old Telugu speaking W with a PMHx of HTN, CAD, Chronic A. fib, CHF, PVD, DLP, DM2, Gout, Vertigo, GERD who presented to the ER with complaints of infected R heel wound who ultimately had an AKA after failed debridement and angioplasty and antibiotics, who is now recovering with course c/b R MCA stroke and post AKA bleeding. Infected RLE heel ulcer with acute osteomyelitis of the calcaneum; in the set ting of vascular compromise; s/p R AKA - Dressing in place and intact, with recs per vascular surgery - Leukocytosis and CRP downtrending - Wound cultures 10/05: Escherichia coli, Morganella morganii, Enterococcus faecalis, MRSA - Wound cultures 10/07: Morganella morganii, Escherichia coli, Enterococcus faecalis - Wound culture 11/14: Pseudomonas aeruginosa - s/p Posterior resection of the right calcaneum on 10/07/[address] Bone - s/p Vascular intervention or R SFA angioplasty on 10/12/[address] Maya - s/p R AKA on 11/21/[address] Venegas c/b bleeding s/p exploration and stopping bleeding on 11/26 - Imaging noted above - Podiatry, Vascular surgery, Interventional radiology, and infectious disease on consultation - s/p Antibiotic therapy; s/p Levaquin; Completed Zosyn (6 week course) - c/w PT and OT; will require rehabilitation moving forward Postop stump bleeding: i/s/o recent surgery, recent elevated INR and therapeutic lovenox - s/p emergent exploration, and control of bleeding from right above-knee amputation stump on 11/26. Managed by vascular surgery. - H/H now stable, on eliquis 5mg BID - s/p 6u pRBCs this admission and 2FFP - daily CBC Acute right MCA stroke with left sided weakness - Patient had code stroke called on 8/10 AM - Imaging noted above; Unable to get MRI 2/2 PPM - c/w ASA 81 - H/H now stable, on eliquis 5mg BID - c/w Atorvastatin 80 - Neurology was consulted; appreciated their input Chronic Systolic CHF - No evidence of decompensation / fluid overload - Patient remains saturating at 96% on room air - s/p AICD / Biventricular pacing - c/w Bumetanide, BB and ACEi w/ hold parameters Dysphagia - c/w Speech therapy recommendations s/p Troponin elevation - likely 2/2 demand ischemia / NSTEMI (Type II) - No chest pain, SOB or palpitations - Troponin has normalized - ECHO Noted above - Serial EKGs have shown no significant change - c/w Carvedilol, ASA 81 - H/H now stable, on eliquis 5mg BID s/p Gram-negative bacteremia - Blood cultures 10/05: (1 of 2) Morganella Morganii - Blood cultures 10/06: Negative at 5 days - s/p Antibiotic therapy Anemia - s/p 6 units PRBC and 2FFP. - H/H now stable, on eliquis 5mg BID - goal >8 IDDM2 - c/w ISS and Levemir HTN - BP well controlled - c/w Carvedilol, Bumetanide, Lisinopril, Amlodipine with hold parameters Chronic Atrial fibrillation - c/w rate control with Carvedilol - H/H now stable, on eliquis 5mg BID DLP - c/w Gemfibrozil Gout - c/w Febuxostat CKD3 - Cr at baseline Neuropathy - c/w Amitriptyline GI prophylaxis - c/w Protonix DVT prophylaxis - H/H now stable, on eliquis 5mg BID Covid-19 exposure -Asymptomatic at this time -Repeat covid-19 testing was negative -on contact and droplet precautions -pending covid-19 vaccination, spoke with Hugo, looking into options Sacral pressure wound: -noted by nursing --> consulted Dr. Rashid Disposition: [facility], pending covid vaccination and placement VS,Fishbone, I+O VS, Fishbone, I+O Laboratory Tests 12/04/20 05:19 Vital Signs Date Time Temp Pulse Resp B/P (MAP) Pulse Ox O2 Delivery O2 Flow Rate FiO2 12/04/20 08:13 18 12/04/20 08:06 64 134/62 12/04/20 05:45 96.8 97 Room Air I&O- Last 24 Hours up to 6 AM 12/04/20 05:59 Intake Total 1980 ml Output Total 500 ml Balance 1480 ml TAYLA KINNEY MD Dec 04, 2020 09:56
[2020-12-04] MEDS: ACETAMINOPHEN TAB 650MG DOSE (2X325MG) PO PRN ×2 (13:07→21:43)
[2020-12-04 14:00] VITALS: BP 132/65
[2020-12-04 20:48] VITALS: BP 131/66
[2020-12-04] MEDS: AMITRIPTYLINE 50 MG TAB PO SCH (21:43)
[2020-12-04] MEDS: MIRALAX *UNIT DOSE* 17GM PACKET PO PRN (21:48)
[2020-12-05] MEDS: SODIUM CHLORIDE 0.9% INJ 10 ML SYR IV SCH ×2 (05:33→17:16)
[2020-12-05 05:50] LABS: HEMATOCRIT 29.6 % (36.0-47.0); HEMOGLOBIN 9.5 g/dl (12.0-15.5); MEAN CORPUSCULAR HEMOGLOBIN 28.4 pg (27.0-33.0); MEAN CORPUSCULAR HGB CONC 32.1 g/dl (32.0-36.5); MEAN CORPUSCULAR VOLUME 88.6 fl (80.0-96.0); PLATELET COUNT, AUTOMATED 503 10^3/uL (150-450); RED BLOOD COUNT 3.34 10^6/uL (4.00-5.40); WHITE BLOOD COUNT 8.8 10^3/uL (4.0-10.0)
[2020-12-05 06:33] VITALS: BP 133/92
[2020-12-05 06:47] LABS: BLOOD UREA NITROGEN 10 MG/DL (7-18); CALCIUM LEVEL 8.1 MG/DL (8.8-10.2); CARBON DIOXIDE LEVEL 33 MEQ/L (21-32); CHLORIDE LEVEL 99 MEQ/L (98-107); CREATININE FOR GFR 0.43 MG/DL (0.55-1.30); GLOMERULAR FILTRATION RATE > 60.0 (>45); GLUCOSE, FASTING 101 MG/DL (70-100); SODIUM LEVEL 137 MEQ/L (136-145)
[2020-12-05] MEDS: HumaLOG INSULIN (NovoLOG) PER UNIT SC SCH ×4 (08:35→20:27)
[2020-12-05] MEDS: FEBUXOSTAT 40 MG TABLET (ULORIC) PO SCH (08:37)
[2020-12-05] MEDS: ASCORBIC ACID 500 MG TAB PO SCH (08:37)
[2020-12-05] MEDS: ASPIRIN 81MG ENTERIC TABLET PO SCH (08:37)
[2020-12-05] MEDS: PANTOPRAZOLE 40MG TAB (PROTONIX) PO SCH (08:37)
[2020-12-05] MEDS: BUMETANIDE 1 MG TAB PO SCH (08:37)
[2020-12-05] MEDS: APIXABAN 5 MG TAB (ELIQUIS) PO SCH ×2 (08:37→20:26)
[2020-12-05] MEDS: ATORVASTATIN 20 MG TAB PO SCH (08:37)
[2020-12-05] MEDS: SENOKOT S TAB PO SCH ×2 (08:38→20:25)
[2020-12-05] MEDS: oxyCODONE 5MG TAB PO PRN ×2 (08:38→16:12)
[2020-12-05] MEDS: CARVedilol 12.5 MG TAB PO SCH ×2 (08:41→20:26)
[2020-12-05] MEDS: MIRALAX *UNIT DOSE* 17GM PACKET PO PRN (12:41)
[2020-12-05] MEDS: NYSTATIN 100,000 UNITS/GM TOPICAL PWD 15 GM TOP SCH ×2 (12:50→20:27)
[2020-12-05] MEDS: AMITRIPTYLINE 50 MG TAB PO SCH (20:26)
[2020-12-05 22:22] VITALS: BP 132/63
[2020-12-06] MEDS: oxyCODONE 5MG TAB PO PRN (03:16)
[2020-12-06] MEDS: SODIUM CHLORIDE 0.9% INJ 10 ML SYR IV SCH ×2 (05:39→18:07)
[2020-12-06 05:50] LABS: HEMATOCRIT 31.4 % (36.0-47.0); MEAN CORPUSCULAR HEMOGLOBIN 28.3 pg (27.0-33.0); MEAN CORPUSCULAR HGB CONC 31.8 g/dl (32.0-36.5); PLATELET COUNT, AUTOMATED 533 10^3/uL (150-450); RED BLOOD COUNT 3.53 10^6/uL (4.00-5.40)
[2020-12-06 06:20] VITALS: BP 132/65
[2020-12-06 06:20] LABS: BLOOD UREA NITROGEN 13 MG/DL (7-18); CALCIUM LEVEL 8.3 MG/DL (8.8-10.2); CARBON DIOXIDE LEVEL 32 MEQ/L (21-32); CHLORIDE LEVEL 96 MEQ/L (98-107); CREATININE FOR GFR 0.59 MG/DL (0.55-1.30); GLOMERULAR FILTRATION RATE > 60.0 (>45); GLUCOSE, FASTING 98 MG/DL (70-100); SODIUM LEVEL 134 MEQ/L (136-145)
[2020-12-06] MEDS: HumaLOG INSULIN (NovoLOG) PER UNIT SC SCH ×4 (07:02→20:31)
[2020-12-06] MEDS: MAGNESIUM OXIDE 400MG TAB (MAG-OX) PO SCH (09:21)
[2020-12-06] MEDS: ASCORBIC ACID 500 MG TAB PO SCH (09:21)
[2020-12-06] MEDS: CARVedilol 12.5 MG TAB PO SCH ×2 (09:22→20:31)
[2020-12-06] MEDS: FEBUXOSTAT 40 MG TABLET (ULORIC) PO SCH (09:23)
[2020-12-06] MEDS: PANTOPRAZOLE 40MG TAB (PROTONIX) PO SCH (09:23)
[2020-12-06] MEDS: ASPIRIN 81MG ENTERIC TABLET PO SCH (09:24)
[2020-12-06] MEDS: SENOKOT S TAB PO SCH ×2 (09:24→20:31)
[2020-12-06] MEDS: ATORVASTATIN 20 MG TAB PO SCH (09:25)
[2020-12-06] MEDS: ACETAMINOPHEN TAB 650MG DOSE (2X325MG) PO PRN ×2 (09:27→19:41)
[2020-12-06] MEDS: NYSTATIN 100,000 UNITS/GM TOPICAL PWD 15 GM TOP SCH ×2 (09:28→20:34)
[2020-12-06] MEDS: APIXABAN 5 MG TAB (ELIQUIS) PO SCH ×2 (09:28→20:31)
[2020-12-06] MEDS: BUMETANIDE 1 MG TAB PO SCH (09:45)
[2020-12-06 20:00] VITALS: BP 128/64
[2020-12-06] MEDS: AMITRIPTYLINE 50 MG TAB PO SCH (20:31)
[2020-12-07 06:00] VITALS: BP 134/70
[2020-12-07] MEDS: SODIUM CHLORIDE 0.9% INJ 10 ML SYR IV SCH ×2 (06:29→18:54)
[2020-12-07 06:35] LABS: BASO % 0.4 % (0.0-1.0); EOS # 1.2 10^3/uL (0.0-0.5); HEMATOCRIT 30.8 % (36.0-47.0); HEMOGLOBIN 9.7 g/dl (12.0-15.5); LYMPH # 2.6 10^3/uL (1.5-5.0); LYMPH % 26.7 % (24.0-44.0); MEAN CORPUSCULAR HGB CONC 31.5 g/dl (32.0-36.5); MEAN CORPUSCULAR VOLUME 88.8 fl (80.0-96.0); MONO % 10.1 % (2.0-8.0); NEUTROPHILS % 50.4 % (36.0-66.0); PLATELET COUNT, AUTOMATED 497 10^3/uL (150-450); RED BLOOD COUNT 3.47 10^6/uL (4.00-5.40); WHITE BLOOD COUNT 9.8 10^3/uL (4.0-10.0)
[2020-12-07] MEDS: APIXABAN 5 MG TAB (ELIQUIS) PO SCH ×2 (08:50→20:20)
[2020-12-07] MEDS: HumaLOG INSULIN (NovoLOG) PER UNIT SC SCH ×4 (08:50→21:00)
[2020-12-07] MEDS: ATORVASTATIN 20 MG TAB PO SCH (08:50)
[2020-12-07] MEDS: SENOKOT S TAB PO SCH ×2 (08:50→20:19)
[2020-12-07] MEDS: PANTOPRAZOLE 40MG TAB (PROTONIX) PO SCH (08:51)
[2020-12-07] MEDS: CARVedilol 12.5 MG TAB PO SCH ×2 (08:51→20:20)
[2020-12-07] MEDS: ASPIRIN 81MG ENTERIC TABLET PO SCH (08:51)
[2020-12-07] MEDS: NYSTATIN 100,000 UNITS/GM TOPICAL PWD 15 GM TOP SCH ×2 (08:52→21:45)
[2020-12-07] MEDS: BUMETANIDE 1 MG TAB PO SCH (08:52)
[2020-12-07] MEDS: ASCORBIC ACID 500 MG TAB PO SCH (08:52)
[2020-12-07] MEDS: FEBUXOSTAT 40 MG TABLET (ULORIC) PO SCH (08:52)
[2020-12-07] MEDS: oxyCODONE 5MG TAB PO PRN (12:49)
[2020-12-07] MEDS ORDERED: diphenhydrAMINE CREAM 30GM TOP PRN (12:55)
[2020-12-07] MEDS ORDERED: hydrOXYzine 10 MG TAB PO PRN (13:05)
[2020-12-07] MEDS ORDERED: COVI30VI IM (14:50)
--- NOTE | 2020-12-07 19:17 | IPNPDOC ---
Subjective Date Seen The patient was seen on 12/07/20. Subjective Chief Complaint/HPI Mrs. Rome is a 65 year old female initially here with right calcaneus osteomyelitis, but then developed right MCA stroke and had right leg AKA. Patient was seen earlier in the afternoon. She reports having diffuse itching, but worse at her right stump and right thigh wound. Started patient on Atarax. Nurse notified me that patient also had a stage 3 sacral ulcer. Advance wound care, Dr. Rashid was consulted. Recommendations appreciated. Will add Ensure to her diet. New wound care orders have also been ordered. Today, she had her first COVID vaccination. Objective Physical Examination General Exam: Positive: Alert, Cooperative Eye Exam: Negative: Sclera icteric Chest Exam: Positive: Clear to auscultation Heart Exam: Positive: Rate Normal, Regular Rhythm Abdomen Exam: Positive: Normal bowel sounds, Soft; Negative: Tenderness Extremity Exam: Positive: Other (Right AKA. Right thigh wound) Psych Exam: Positive: Mental status NL, Mood NL Assessment /Plan Assessment Mrs. Rome is a 65 year old female initially here with right calcaneus osteomyelitis, but then developed right MCA stroke and had right leg AKA. She is currently pending placement. [facility] accepted her, but required a COVID vaccination and a 2 week waiting period. She had her first dose of COVID vaccination today on 12/07/20. Plan/VTE VTE Prophylaxis Ordered?: Yes Plan 1. Right heel ulcer with acute osteomyelitis of the calcaneum status post right AKA Dr. Bone performed posterior resection of the right calcaneum on 10/07/2020 Dr. Maya performed vascular intervention on right SFA angioplasty on 10/12/2020 Dr. Venegas performed right AKA on 11/21/2020 and exploration to stop bleeding on 11/26/2020 Podiatry, vascular surgery, interventional radiology, infectious disease was on consultation Completed 6 weeks of antibiotics Continue PT and OT Pending rehab placement 2. Acute right MCA stroke with left-sided weakness Code stroke on 10/20/2020 Unable to obtain MRI due to pacemaker Continue with aspirin, atorvastatin, and Eliquis Neurology was consulted and recommendations appreciated 3. Chronic systolic CHF Stable, not decompensated Status post AICD and biventricular pacing Continue with Bumex, Coreg, and lisinopril 4. Dysphagia Continue with speech therapy recommendations 5. Blood loss anemia Status post 6 units of packed red blood cells and 2 units of FFP 6. Insulin-dependent diabetes mellitus type 2 Continue with basal bolus insulin 7. Hypertension Continue with Coreg, Bumex, lisinopril, and amlodipine 8. Chronic atrial fibrillation Continue with Coreg and Eliquis 9. Dyslipidemia Continue with atorvastatin 10. Gout Continue with febuxostat 11. CKD stage III Stable Supportive care 12. Neuropathy Continue with amitriptyline 13. Right stump wound, right thigh wound, and sacral pressure ulcer Continue Yusuf and Glucerna Advanced wound care, Dr. Ospina consulted, recommendations appreciated Disposition: [facility] accepted patient but patient will need Covid vaccination and a 2-week waiting period. First Covid vaccination on 12/07/2020 VS, I&O, 24H, Fishbone Vital Signs/I&O Vital Signs Date Time Temp Pulse Resp B/P (MAP) Pulse Ox O2 Delivery O2 Flow Rate FiO2 12/07/20 13:20 16 12/07/20 08:51 134/70 12/07/20 08:51 62 12/07/20 06:00 98.3 99 Room Air I&O- Last 24 Hours up to 6 AM 12/07/20 06:00 Intake Total 960 ml Output Total 2750 ml Balance -1790 ml Laboratory Data 24H LABS Laboratory Tests 2 12/06/20 20:13: Bedside Glucose (Misc Panel) 112 12/07/20 05:53: Immature Granulocyte % (Auto) 0.4, Neutrophils (%) (Auto) 50.4, Lymphocytes (%) (Auto) 26.7, Monocytes (%) (Auto) 10.1H, Eosinophils (%) (Auto) 12.0H, Basophils (%) (Auto) 0.4, Neutrophils # (Auto) 5.0, Lymphocytes # (Auto) 2.6, Monocytes # (Auto) 1.0H, Eosinophils # (Auto) 1.2H, Basophils # (Auto) 0.0, Nucleated Red Blood Cells % (auto) 0.0 12/07/20 08:03: Bedside Glucose (Misc Panel) 113 12/07/20 12:12: Bedside Glucose (Misc Panel) 132H 12/07/20 18:08: Bedside Glucose (Misc Panel) 132H CBC/BMP Laboratory Tests 12/07/20 05:53 LUCY VILLANUEVA DO Dec 07, 2020 19:17
[2020-12-07] MEDS: AMITRIPTYLINE 50 MG TAB PO SCH (20:20)
--- NOTE | 2020-12-07 21:22 | CR ---
ADVANCED WOUND CARE TELEMEDICINE CONSULTATION DATE: 12/07/2020 REQUESTING PHYSICIAN: Dr. Wai Martínez CONSULTING PHYSICIAN: Dr. Doug Rashid REASON FOR CONSULTATION: Wound care recommendations for right medial inner thigh wound and sacral wound. Wound care telemedicine provides a visual assessment of a wound without the benefit of physical examination. It can assist with establishing a diagnosis and etiology. This allows for an initial treatment plan. As wounds often change, it may be necessary to modify the original care. Our recommendation is periodic wound reassessment to monitor treatment. Failure to comply may result in non healing of the wound, possible complications and/or a poor outcome. The recommendations given will serve as treatment options. As I will not be following this patient, this care plan will require the attending physician to give and sign the orders. Upon discharge, outpatient follow up can be scheduled at our [facility] Care [facility]. HISTORY OF PRESENT ILLNESS: A 65-year-old longstanding diabetic female with advanced peripheral vascular disease had been followed in our Wound Care [facility] for a worsening of a diabetic foot ulcer involving the right foot. This continued to progress and the patient was admitted to the hospital. The patient had positive blood cultures and was septic, requiring ICU treatment. She was seen by Vascular Surgery and her arterial study was not compatible for limb salvage according to the records. On October 21, 2020 a right above knee amputation was performed. This has healed. The patient has a new wound involving the skin folds of the medial aspect of the right inner thigh. There is a linear wound measuring 17.5 cm by varying widths of 2.5 cm to 0.5 cm. The wound base appears clean. The drainage is minimal and the periwound shows no erythema, maceration or ischemic change. There is no evidence of intertrigo.The patient also has a stage 3 pressure injury involving the sacrum. There are areas of epithelialization seen and small scattered areas of denuded and full thickness skin loss. The patient's recent hemoglobin A1c is 7.8. TREATMENT RECOMMENDATIONS: 1. Right medial thigh wound should be cleansed with Vashe Wound Care Cleanser and a Hydrofera Blue rope should be used for the dressing, covered with a standard foam dressing. Skin prep to the periwound is recommended. 2. In terms of the sacral wound, this also can be cleansed with Vashe and a large sacral foam dressing should be applied. Dressing changes on an atllo-rqpqb-myk basis. No indication for antibiotic therapy. 3. The patient's nutritional status should be supplemented with Yusuf and/or Glucerna. 4. An alternating air mattress should be ordered along with a ROHO cushion when the patient is out of bed, in a chair. 5. Agree with heel float boot for the left foot prophylactic care MTDD
[2020-12-07] MEDS: hydrOXYzine 25 MG TAB PO PRN (21:45)
[2020-12-08 05:55] LABS: HEMATOCRIT 30.1 % (36.0-47.0); HEMOGLOBIN 9.7 g/dl (12.0-15.5); MEAN CORPUSCULAR HEMOGLOBIN 28.1 pg (27.0-33.0); MEAN CORPUSCULAR HGB CONC 32.2 g/dl (32.0-36.5); MEAN CORPUSCULAR VOLUME 87.2 fl (80.0-96.0); PLATELET COUNT, AUTOMATED 459 10^3/uL (150-450); RED BLOOD COUNT 3.45 10^6/uL (4.00-5.40); WHITE BLOOD COUNT 10.2 10^3/uL (4.0-10.0)
[2020-12-08 06:00] VITALS: BP 132/62
[2020-12-08] MEDS: SODIUM CHLORIDE 0.9% INJ 10 ML SYR IV SCH ×2 (06:01→18:57)
[2020-12-08] MEDS: hydrOXYzine 25 MG TAB PO PRN ×2 (06:05→13:08)
[2020-12-08 06:20] LABS: BLOOD UREA NITROGEN 24 MG/DL (7-18); CALCIUM LEVEL 8.4 MG/DL (8.8-10.2); CARBON DIOXIDE LEVEL 32 MEQ/L (21-32); CHLORIDE LEVEL 97 MEQ/L (98-107); CREATININE FOR GFR 0.55 MG/DL (0.55-1.30); GLOMERULAR FILTRATION RATE > 60.0 (>45); GLUCOSE, FASTING 124 MG/DL (70-100); POTASSIUM SERUM 4.1 MEQ/L (3.5-5.1); SODIUM LEVEL 134 MEQ/L (136-145)
[2020-12-08] MEDS: ATORVASTATIN 20 MG TAB PO SCH (08:36)
[2020-12-08] MEDS: APIXABAN 5 MG TAB (ELIQUIS) PO SCH ×2 (08:36→20:02)
[2020-12-08] MEDS: HumaLOG INSULIN (NovoLOG) PER UNIT SC SCH ×4 (08:36→20:03)
[2020-12-08] MEDS: SENOKOT S TAB PO SCH ×2 (08:38→20:00)
[2020-12-08] MEDS: MAGNESIUM OXIDE 400MG TAB (MAG-OX) PO SCH (08:38)
[2020-12-08] MEDS: PANTOPRAZOLE 40MG TAB (PROTONIX) PO SCH (08:39)
[2020-12-08] MEDS: ASPIRIN 81MG ENTERIC TABLET PO SCH (08:39)
[2020-12-08] MEDS: ASCORBIC ACID 500 MG TAB PO SCH (08:39)
[2020-12-08] MEDS: BUMETANIDE 1 MG TAB PO SCH (08:39)
[2020-12-08] MEDS: FEBUXOSTAT 40 MG TABLET (ULORIC) PO SCH (08:39)
[2020-12-08] MEDS: CARVedilol 12.5 MG TAB PO SCH ×2 (08:41→20:02)
[2020-12-08] MEDS: NYSTATIN 100,000 UNITS/GM TOPICAL PWD 15 GM TOP SCH ×2 (08:51→20:03)
--- NOTE | 2020-12-08 15:50 | IPN ---
PROGRESS NOTE DATE: 12/08/2020 SUBJECTIVE: Patient denies fever, chills, abdominal pain, nausea, vomiting, diarrhea. She denies any pain of the right stump. No other issues per nursing. OBJECTIVE: Vital signs: Temperature 97.9, pulse 60, respiratory rate 19, blood pressure 132/62, 96% on room air. General: Awake, alert, oriented to herself, answering questions appropriately in no distress. Lungs: Clear to auscultation, no wheezes, rhonchi or rales. Heart: S1 and S2 sinus rhythm. Abdomen: Soft, nontender, nondistended, positive bowel sounds. Extremities: Right lower extremity [id number]-[id number] amputation currently in a dressing and left lower extremity with no cyanosis or clubbing. Neurologic: Right upper and lower extremity 4/5 strength, left upper and lower extremity 5/5. Gait was not tested. Face is symmetric. Skin: Stage 3 sacral decubitus right inner thigh, 17 cm x 2 cm clean wound with serous drainage. LABORATORY DATA: Laboratory data and microbiology please see the chart. IMAGING STUDIES: Please see the chart. ASSESSMENT: A 65-year-old female admitted with right calcaneal osteomyelitis, had a right MCA stroke and right leg [id number]-yqn-[id number] amputation. Awaiting placement. Patient acquired COVID vaccination in a 2 week waiting period from the first dose on 12/07/2020. IMPRESSIONS/PLAN: 1. Right heel ulcer with acute osteomyelitis of the calcaneum: Status post right AKA. Dr. Bone status post posterior resection of the right calcaneus 09/29/2020, right SFA angioplasty 10/12/[address] Maya, right AKA on 11/21/[address] Venegas, exploration to stop the bleeding on 11/26/2020: ID consulted. Completed 6 weeks of antibiotics. Awaiting rehab placement in [place] 2 weeks after the first vaccination for Coronavirus on 12/07/2020. 2. Acute right MCA CVA with left sided weakness on 10/20/2020: Because of patient's pacemaker unable to obtain an MRI. Currently on aspirin, atorvastatin and Eliquis. Neurology was consulted. 3. Chronic systolic congestive heart failure: Compensated status post AICD and biventricular pacing on Bumex, Coreg, lisinopril. No signs of decompensation. 4. Dysphagia: Speech therapy has been consulted secondary to recent CVA. 5. Blood loss anemia status post exploration of the right AKA on 11/26/2020 which stopped the bleeding: Status post 6 units RBC transfusion and 2 units of fresh frozen plasma transfusion. 6. Type-2 insulin dependent diabetes: Currently on consistent carbohydrate diet, insulin sliding scale with coverage. 7. Hypertension: On Coreg, Bumex, lisinopril and Norvasc. 8. Chronic afib: On Coreg and Eliquis. Currently rate controlled. 9. Dyslipidemia: On atorvastatin. 10. Gout: On Febuxostat. 11. Chronic kidney disease stage 3: At baseline creatinine. Avoiding nephrotoxins, renally dosing all medications. 12. Chronic diabetic neuropathy: On amitriptyline. 13. Right stump wound, right thigh wound and stage 3 sacral pressure ulcer: On Yusuf and Glucerna, advanced wound care with Dr. Rashid. 14. Disposition: Patient is awaiting [facility] transfer 2 weeks after first vaccination on December 07, 2020. MTDD
[2020-12-08] MEDS: traMADol 50 MG TAB PO PRN (16:26)
[2020-12-08] MEDS ORDERED: diphenhydrAMINE 50MG/ML VIAL (J1200) IV ONE (19:50)
[2020-12-08] MEDS: AMITRIPTYLINE 50 MG TAB PO SCH (20:02)
[2020-12-08] MEDS: ACETAMINOPHEN TAB 650MG DOSE (2X325MG) PO PRN (20:14)
[2020-12-09] MEDS: SODIUM CHLORIDE 0.9% INJ 10 ML SYR IV SCH ×2 (06:14→17:35)
[2020-12-09 06:16] LABS: HEMATOCRIT 31.1 % (36.0-47.0); HEMOGLOBIN 9.8 g/dl (12.0-15.5); MEAN CORPUSCULAR HEMOGLOBIN 27.5 pg (27.0-33.0); MEAN CORPUSCULAR HGB CONC 31.5 g/dl (32.0-36.5); MEAN CORPUSCULAR VOLUME 87.1 fl (80.0-96.0); PLATELET COUNT, AUTOMATED 464 10^3/uL (150-450); RED BLOOD COUNT 3.57 10^6/uL (4.00-5.40); WHITE BLOOD COUNT 10.1 10^3/uL (4.0-10.0)
[2020-12-09 06:40] VITALS: BP 128/66
[2020-12-09] MEDS: ACETAMINOPHEN TAB 650MG DOSE (2X325MG) PO PRN ×2 (06:46→21:43)
[2020-12-09 06:48] LABS: BLOOD UREA NITROGEN 19 MG/DL (7-18); CALCIUM LEVEL 8.6 MG/DL (8.8-10.2); CARBON DIOXIDE LEVEL 32 MEQ/L (21-32); CHLORIDE LEVEL 98 MEQ/L (98-107); CREATININE FOR GFR 0.64 MG/DL (0.55-1.30); GLOMERULAR FILTRATION RATE > 60.0 (>45); GLUCOSE, FASTING 127 MG/DL (70-100); POTASSIUM SERUM 3.7 MEQ/L (3.5-5.1); SODIUM LEVEL 134 MEQ/L (136-145)
[2020-12-09] MEDS: ASCORBIC ACID 500 MG TAB PO SCH (08:08)
[2020-12-09] MEDS: PANTOPRAZOLE 40MG TAB (PROTONIX) PO SCH (08:08)
[2020-12-09] MEDS: ATORVASTATIN 20 MG TAB PO SCH (08:09)
[2020-12-09] MEDS: HumaLOG INSULIN (NovoLOG) PER UNIT SC SCH ×4 (08:09→20:31)
[2020-12-09] MEDS: APIXABAN 5 MG TAB (ELIQUIS) PO SCH ×2 (08:10→20:30)
[2020-12-09] MEDS: FEBUXOSTAT 40 MG TABLET (ULORIC) PO SCH (08:10)
[2020-12-09] MEDS: SENOKOT S TAB PO SCH ×2 (08:11→20:31)
[2020-12-09] MEDS: NYSTATIN 100,000 UNITS/GM TOPICAL PWD 15 GM TOP SCH ×2 (08:11→20:32)
[2020-12-09] MEDS: ASPIRIN 81MG ENTERIC TABLET PO SCH (08:11)
[2020-12-09] MEDS: BUMETANIDE 1 MG TAB PO SCH (08:12)
[2020-12-09] MEDS: CARVedilol 12.5 MG TAB PO SCH ×2 (08:13→20:30)
--- NOTE | 2020-12-09 09:11 | IPNPDOC ---
Date Seen The patient was seen on 12/09/20. Progress Note SUBJECTIVE: c/o generalized pruritus w/o rash since covid vaccine given on 12/07 no sob, hoarse voice, or wheezing. still awaiting [facility] placement 2 wks after covid vaccine on 12/07 OBJECTIVE: PE Vital signs: see below General: Awake, alert, oriented to herself, answering questions appropriately in no distress.no distress no maculopapular rash HEENT: moist mm no stridor Lungs: Clear to auscultation, no wheezes, rhonchi or rales. Heart: S1 and S2 sinus rhythm. Abdomen: Soft, nontender, nondistended, positive bowel sounds. Extremities: Right lower extremity [id number]-snb-[id number] amputation currently in a dressing and left lower extremity with no cyanosis or clubbing. Neurologic: Right upper and lower extremity 4/5 strength, left upper and lower extremity 5/5. Gait was not tested. Face is symmetric. Skin: Stage 3 sacral decubitus right inner thigh, 17 cm x 2 cm clean wound with serous drainage. no maculopapular rash LABORATORY DATA: Laboratory data and microbiology please see the chart. IMAGING STUDIES: Please see the chart. ASSESSMENT: A 65-year-old female admitted with right calcaneal osteomyelitis, had a right MCA stroke and right leg [id number] amputation. Awaiting placement. Patient acquired COVID vaccination in a 2 week waiting period from the first dose on 12/07/2020. IMPRESSIONS/PLAN: Right heel ulcer with acute osteomyelitis of the calcaneum: Status post right AKA. Dr. Bone status post posterior resection of the right calcaneus 09/29/2020, right SFA angioplasty 10/12/[address] Maya, right AKA on 11/21/[address] Venegas, exploration to stop the bleeding on 11/26/2020: ID consulted. Completed 6 weeks of antibiotics. Awaiting rehab placement in [place] 2 weeks after the first vaccination for Coronavirus on 12/07/2020. Pruritus noted after covid vaccine given. no stridor or wheezing. topical benadryl bid short course of prednisone tapered 30-20-10. atarax q6 x 3days no airway compromise on clinical exam and no maculopapular rash. Acute right MCA CVA with left sided weakness on 10/20/2020: Because of patient's pacemaker unable to obtain an MRI. Currently on aspirin, atorvastatin and Eliquis. Neurology was consulted. Chronic systolic congestive heart failure: Compensated status post AICD and biventricular pacing on Bumex, Coreg, lisinopril. No signs of decompensation. Dysphagia: Speech therapy has been consulted secondary to recent CVA. Blood loss anemia status post exploration of the right AKA on 11/26/2020 which stopped the bleeding: Status post 6 units RBC transfusion and 2 units of fresh frozen plasma transfusion. Type-2 insulin dependent diabetes: Currently on consistent carbohydrate diet, insulin sliding scale with coverage. Hypertension: On Coreg, Bumex, lisinopril and Norvasc. Chronic afib: On Coreg and Eliquis. Currently rate controlled. Dyslipidemia: On atorvastatin. Gout: On Febuxostat. Chronic kidney disease stage 3: At baseline creatinine. Avoiding nephrotoxins, renally dosing all medications. Chronic diabetic neuropathy: On amitriptyline. Right stump wound, right thigh wound and stage 3 sacral pressure ulcer: On Yusuf and Glucerna, advanced wound care with Dr. Rashid. Disposition: Patient is awaiting [facility] transfer 2 weeks after first vaccination on December 07, 2020. [facility] Vital Signs Date Time Temp Pulse Resp B/P (MAP) Pulse Ox O2 Delivery O2 Flow Rate FiO2 12/09/20 08:14 127/58 12/09/20 08:13 61 12/09/20 06:40 97.8 19 100 12/08/20 06:00 Room Air I&O- Last 24 Hours up to 6 AM 12/09/20 06:00 Intake Total 1540 ml Output Total 575 ml Balance 965 ml Laboratory Data 24H LABS Laboratory Tests 2 12/08/20 11:35: Bedside Glucose (Misc Panel) 125H 12/08/20 17:00: Bedside Glucose (Misc Panel) 148H 12/08/20 19:59: Bedside Glucose (Misc Panel) 146H 12/09/20 05:44: Nucleated Red Blood Cells % (auto) 0.0, Anion Gap 4L, Glomerular Filtration Rate > 60.0, Calcium Level 8.6L CBC/BMP Laboratory Tests 12/09/20 05:44 MARLEN EPSTEIN MD Dec 09, 2020 09:11
[2020-12-09] MEDS: predniSONE 10 MG TAB PO SCH (09:22)
[2020-12-09] MEDS: diphenhydrAMINE CREAM 30GM TOP SCH ×2 (10:25→20:33)
[2020-12-09] MEDS: hydrOXYzine 25 MG TAB PO SCH ×2 (12:35→17:34)
[2020-12-09] MEDS: AMITRIPTYLINE 50 MG TAB PO SCH (20:30)
[2020-12-09] MEDS: MIRALAX *UNIT DOSE* 17GM PACKET PO PRN (21:29)
[2020-12-10] MEDS: hydrOXYzine 25 MG TAB PO SCH ×4 (05:18→18:13)
[2020-12-10] MEDS: SODIUM CHLORIDE 0.9% INJ 10 ML SYR IV SCH ×2 (05:19→18:15)
[2020-12-10 05:49] VITALS: BP 128/59
[2020-12-10 05:59] LABS: HEMATOCRIT 31.2 % (36.0-47.0); HEMOGLOBIN 9.9 g/dl (12.0-15.5); MEAN CORPUSCULAR HEMOGLOBIN 27.7 pg (27.0-33.0); MEAN CORPUSCULAR HGB CONC 31.7 g/dl (32.0-36.5); MEAN CORPUSCULAR VOLUME 87.4 fl (80.0-96.0); PLATELET COUNT, AUTOMATED 500 10^3/uL (150-450); RED BLOOD COUNT 3.57 10^6/uL (4.00-5.40); WHITE BLOOD COUNT 13.8 10^3/uL (4.0-10.0)
[2020-12-10 06:17] LABS: BLOOD UREA NITROGEN 26 MG/DL (7-18); CALCIUM LEVEL 8.7 MG/DL (8.8-10.2); CARBON DIOXIDE LEVEL 32 MEQ/L (21-32); CHLORIDE LEVEL 96 MEQ/L (98-107); CREATININE FOR GFR 0.64 MG/DL (0.55-1.30); GLOMERULAR FILTRATION RATE > 60.0 (>45); GLUCOSE, FASTING 147 MG/DL (70-100); POTASSIUM SERUM 3.8 MEQ/L (3.5-5.1); SODIUM LEVEL 134 MEQ/L (136-145)
[2020-12-10] MEDS: HumaLOG INSULIN (NovoLOG) PER UNIT SC SCH ×4 (08:27→20:29)
[2020-12-10] MEDS: ASPIRIN 81MG ENTERIC TABLET PO SCH (08:28)
[2020-12-10] MEDS: ASCORBIC ACID 500 MG TAB PO SCH (08:28)
[2020-12-10] MEDS: predniSONE 10 MG TAB PO SCH (08:28)
[2020-12-10] MEDS: ATORVASTATIN 20 MG TAB PO SCH (08:28)
[2020-12-10] MEDS: FEBUXOSTAT 40 MG TABLET (ULORIC) PO SCH (08:28)
[2020-12-10] MEDS: BUMETANIDE 1 MG TAB PO SCH (08:28)
[2020-12-10] MEDS: MAGNESIUM OXIDE 400MG TAB (MAG-OX) PO SCH (08:29)
[2020-12-10] MEDS: SENOKOT S TAB PO SCH ×2 (08:29→20:29)
[2020-12-10] MEDS: PANTOPRAZOLE 40MG TAB (PROTONIX) PO SCH (08:30)
[2020-12-10] MEDS: CARVedilol 12.5 MG TAB PO SCH ×2 (08:30→20:29)
[2020-12-10] MEDS: APIXABAN 5 MG TAB (ELIQUIS) PO SCH ×2 (08:30→20:29)
[2020-12-10] MEDS: diphenhydrAMINE CREAM 30GM TOP SCH ×2 (08:31→20:30)
[2020-12-10] MEDS: NYSTATIN 100,000 UNITS/GM TOPICAL PWD 15 GM TOP SCH ×2 (08:31→20:30)
[2020-12-10] MEDS: ACETAMINOPHEN TAB 650MG DOSE (2X325MG) PO PRN ×2 (10:25→20:28)
[2020-12-10] MEDS: ANALGESIC BALM CRM 3OZ TOP SCH ×3 (12:57→20:30)
--- NOTE | 2020-12-10 12:58 | IPNPDOC ---
Date Seen The patient was seen on 12/10/20. Progress Note SUBJECTIVE: pruritus improved w topical benadryl. no rash, sob, wheezing. c/o right shoulder pain due to "It's my arthritis you know." OBJECTIVE: PE Vital signs: see below General: no distress. appears older than stated age HEENT: no cervical LAD or JVDmoist mm no stridor Lungs: Clear to auscultation, no wheezes, rhonchi or rales. Heart: S1 and S2 sinus rhythm. Abdomen: Soft, nontender, nondistended, positive bowel sounds. Extremities: Right lower extremity kqpdy-sok-rnov amputation currently in a dressing and left lower extremity with no cyanosis or clubbing. Neurologic: Right upper and lower extremity 4/5 strength, left upper and lower extremity 5/5. Gait was not tested. Face is symmetric. Skin: Stage 3 sacral decubitus right inner thigh, 17 cm x 2 cm clean wound with serous drainage. no maculopapular rash LABORATORY DATA: Laboratory data and microbiology please see the chart. IMAGING STUDIES: Please see the chart. ASSESSMENT: A 65-year-old female admitted with right calcaneal osteomyelitis, had a right MCA stroke and right leg rpzei-ktr-ygop amputation. Awaiting placement. Patient acquired COVID vaccination in a 2 week waiting period from the first dose on 12/07/2020. IMPRESSIONS/PLAN: Right heel ulcer with acute osteomyelitis of the calcaneum: Status post right AKA. Dr. Bone status post posterior resection of the right calcaneus 09/29/2020, right SFA angioplasty 10/12/[address] Maya, right AKA on 11/21/[address] Venegas, exploration to stop the bleeding on 11/26/2020: ID consulted. Completed 6 weeks of antibiotics. Awaiting rehab placement in [place] 2 weeks after the first vaccination for Coronavirus on 12/07/2020. pain is controlled on current regimen. Pruritus,resolved topical benadryl bid short course of prednisone tapered 30-20-10. atarax q6 x 3days no airway compromise on clinical exam and no maculopapular rash. right shoulder pain prn bengay and prn pain meds Acute right MCA CVA with left sided weakness on 10/20/2020: Because of patient's pacemaker unable to obtain an MRI. Currently on aspirin, atorvastatin and Eliquis. Neurology was consulted. Chronic systolic congestive heart failure: Compensated status post AICD and biventricular pacing on Bumex, Coreg, lisinopril. No signs of decompensation. Dysphagia: Speech therapy has been consulted secondary to recent CVA. Blood loss anemia status post exploration of the right AKA on 11/26/2020 which stopped the bleeding: Status post 6 units RBC transfusion and 2 units of fresh frozen plasma transfusion. Type-2 insulin dependent diabetes: Currently on consistent carbohydrate diet, insulin sliding scale with coverage. Hypertension: On Coreg, Bumex, lisinopril and Norvasc. Chronic afib: On Coreg and Eliquis. Currently rate controlled. Dyslipidemia: On atorvastatin. Gout: On Febuxostat. Chronic kidney disease stage 3: At baseline creatinine. Avoiding nephrotoxins, renally dosing all medications. Chronic diabetic neuropathy: On amitriptyline. Right stump wound, right thigh wound and stage 3 sacral pressure ulcer: On Yusuf and Glucerna, advanced wound care with Dr. Rashid. Disposition: Patient is awaiting [facility] transfer 2 weeks after first vaccination on December 07, 2020. VS, I&O, 24H, Fishbone Vital Signs/I&O Vital Signs Date Time Temp Pulse Resp B/P (MAP) Pulse Ox O2 Delivery O2 Flow Rate FiO2 12/10/20 08:31 130/61 12/10/20 08:30 61 12/10/20 05:49 97.8 18 99 12/08/20 06:00 Room Air I&O- Last 24 Hours up to 6 AM 12/10/20 05:59 Intake Total 1000 ml Output Total 1000 ml Balance 0 ml Laboratory Data 24H LABS Laboratory Tests 2 12/09/20 16:36: Bedside Glucose (Misc Panel) 166H 12/09/20 19:57: Bedside Glucose (Misc Panel) 202H 12/10/20 05:21: Nucleated Red Blood Cells % (auto) 0.0, Anion Gap 6L, Glomerular Filtration Rate > 60.0, Calcium Level 8.7L 12/10/20 11:26: Bedside Glucose (Misc Panel) 159H CBC/BMP Laboratory Tests 12/10/20 05:21 MARLEN EPSTEIN MD Dec 10, 2020 12:58
[2020-12-10 19:59] VITALS: BP 132/62
[2020-12-10] MEDS: AMITRIPTYLINE 50 MG TAB PO SCH (20:29)
[2020-12-11 05:44] LABS: HEMATOCRIT 29.5 % (36.0-47.0); HEMOGLOBIN 9.5 g/dl (12.0-15.5); MEAN CORPUSCULAR HGB CONC 32.2 g/dl (32.0-36.5); PLATELET COUNT, AUTOMATED 480 10^3/uL (150-450); RED BLOOD COUNT 3.39 10^6/uL (4.00-5.40); WHITE BLOOD COUNT 15.1 10^3/uL (4.0-10.0)
[2020-12-11] MEDS: hydrOXYzine 25 MG TAB PO SCH ×4 (05:49→17:54)
[2020-12-11] MEDS: SODIUM CHLORIDE 0.9% INJ 10 ML SYR IV SCH ×2 (05:50→18:14)
[2020-12-11 06:00] VITALS: BP 134/62
[2020-12-11 06:15] LABS: BLOOD UREA NITROGEN 20 MG/DL (7-18); CALCIUM LEVEL 8.7 MG/DL (8.8-10.2); CARBON DIOXIDE LEVEL 32 MEQ/L (21-32); CHLORIDE LEVEL 98 MEQ/L (98-107); CREATININE FOR GFR 0.58 MG/DL (0.55-1.30); GLOMERULAR FILTRATION RATE > 60.0 (>45); GLUCOSE, FASTING 145 MG/DL (70-100); POTASSIUM SERUM 3.5 MEQ/L (3.5-5.1); SODIUM LEVEL 136 MEQ/L (136-145)
[2020-12-11] MEDS: APIXABAN 5 MG TAB (ELIQUIS) PO SCH ×2 (08:06→20:54)
[2020-12-11] MEDS: ATORVASTATIN 20 MG TAB PO SCH (08:06)
[2020-12-11] MEDS: BUMETANIDE 1 MG TAB PO SCH (08:06)
[2020-12-11] MEDS: ASCORBIC ACID 500 MG TAB PO SCH (08:06)
[2020-12-11] MEDS: PANTOPRAZOLE 40MG TAB (PROTONIX) PO SCH (08:07)
[2020-12-11] MEDS: ASPIRIN 81MG ENTERIC TABLET PO SCH (08:07)
[2020-12-11] MEDS: SENOKOT S TAB PO SCH ×2 (08:07→20:54)
[2020-12-11] MEDS: predniSONE 10 MG TAB PO SCH (08:07)
[2020-12-11] MEDS: FEBUXOSTAT 40 MG TABLET (ULORIC) PO SCH (08:07)
[2020-12-11] MEDS: CARVedilol 12.5 MG TAB PO SCH ×2 (08:08→20:55)
[2020-12-11] MEDS: ACETAMINOPHEN TAB 650MG DOSE (2X325MG) PO PRN (08:10)
[2020-12-11] MEDS: HumaLOG INSULIN (NovoLOG) PER UNIT SC SCH ×4 (08:10→20:53)
[2020-12-11] MEDS: diphenhydrAMINE CREAM 30GM TOP SCH ×2 (09:00→20:57)
[2020-12-11] MEDS: ANALGESIC BALM CRM 3OZ TOP SCH ×4 (09:00→20:57)
[2020-12-11] MEDS: NYSTATIN 100,000 UNITS/GM TOPICAL PWD 15 GM TOP SCH ×2 (09:18→20:57)
[2020-12-11] MEDS: traMADol 50 MG TAB PO PRN ×2 (13:23→21:04)
[2020-12-11] MEDS: AMITRIPTYLINE 50 MG TAB PO SCH (20:54)
[2020-12-12] MEDS: hydrOXYzine 25 MG TAB PO SCH ×6 (05:34→20:31)
[2020-12-12] MEDS: SODIUM CHLORIDE 0.9% INJ 10 ML SYR IV SCH ×2 (05:43→17:23)
[2020-12-12 06:00] VITALS: BP 144/71
[2020-12-12 06:20] LABS: HEMATOCRIT 30.4 % (36.0-47.0); HEMOGLOBIN 9.6 g/dl (12.0-15.5); MEAN CORPUSCULAR HEMOGLOBIN 27.9 pg (27.0-33.0); MEAN CORPUSCULAR HGB CONC 31.6 g/dl (32.0-36.5); MEAN CORPUSCULAR VOLUME 88.4 fl (80.0-96.0); PLATELET COUNT, AUTOMATED 482 10^3/uL (150-450); RED BLOOD COUNT 3.44 10^6/uL (4.00-5.40); WHITE BLOOD COUNT 15.2 10^3/uL (4.0-10.0)
[2020-12-12 06:44] LABS: BLOOD UREA NITROGEN 20 MG/DL (7-18); CALCIUM LEVEL 8.8 MG/DL (8.8-10.2); CARBON DIOXIDE LEVEL 31 MEQ/L (21-32); CHLORIDE LEVEL 98 MEQ/L (98-107); CREATININE FOR GFR 0.55 MG/DL (0.55-1.30); GLOMERULAR FILTRATION RATE > 60.0 (>45); GLUCOSE, FASTING 156 MG/DL (70-100); POTASSIUM SERUM 3.8 MEQ/L (3.5-5.1); SODIUM LEVEL 137 MEQ/L (136-145)
[2020-12-12] MEDS: FEBUXOSTAT 40 MG TABLET (ULORIC) PO SCH (08:50)
[2020-12-12] MEDS: HumaLOG INSULIN (NovoLOG) PER UNIT SC SCH ×4 (08:50→20:33)
[2020-12-12] MEDS: predniSONE 10 MG TAB PO SCH (08:50)
[2020-12-12] MEDS: ASPIRIN 81MG ENTERIC TABLET PO SCH (08:50)
[2020-12-12] MEDS: SENOKOT S TAB PO SCH ×2 (08:50→20:30)
[2020-12-12] MEDS: BUMETANIDE 1 MG TAB PO SCH (08:51)
[2020-12-12] MEDS: PANTOPRAZOLE 40MG TAB (PROTONIX) PO SCH (08:51)
[2020-12-12] MEDS: APIXABAN 5 MG TAB (ELIQUIS) PO SCH ×2 (08:51→20:29)
[2020-12-12] MEDS: ATORVASTATIN 20 MG TAB PO SCH (08:51)
[2020-12-12] MEDS: ASCORBIC ACID 500 MG TAB PO SCH (08:51)
[2020-12-12] MEDS: CARVedilol 12.5 MG TAB PO SCH ×2 (08:52→20:30)
[2020-12-12] MEDS: MAGNESIUM OXIDE 400MG TAB (MAG-OX) PO SCH (08:52)
[2020-12-12] MEDS: NYSTATIN 100,000 UNITS/GM TOPICAL PWD 15 GM TOP SCH ×2 (08:59→20:32)
[2020-12-12] MEDS: ANALGESIC BALM CRM 3OZ TOP SCH ×4 (08:59→20:31)
[2020-12-12] MEDS: MIRALAX *UNIT DOSE* 17GM PACKET PO PRN (13:39)
[2020-12-12] MEDS: MOM 30ML SUSPENSION UDC PO PRN (17:28)
[2020-12-12] MEDS: AMITRIPTYLINE 50 MG TAB PO SCH (20:30)
[2020-12-12] MEDS: traMADol 50 MG TAB PO PRN (20:31)
[2020-12-13] MEDS: SODIUM CHLORIDE 0.9% INJ 10 ML SYR IV SCH ×2 (05:18→17:26)
[2020-12-13] MEDS: hydrOXYzine 25 MG TAB PO SCH ×4 (05:18→23:47)
[2020-12-13 06:00] VITALS: BP 153/72
[2020-12-13] MEDS: FEBUXOSTAT 40 MG TABLET (ULORIC) PO SCH (07:51)
[2020-12-13] MEDS: SENOKOT S TAB PO SCH ×2 (07:51→20:16)
[2020-12-13] MEDS: ASCORBIC ACID 500 MG TAB PO SCH (07:51)
[2020-12-13] MEDS: HumaLOG INSULIN (NovoLOG) PER UNIT SC SCH ×4 (07:51→20:56)
[2020-12-13] MEDS: ASPIRIN 81MG ENTERIC TABLET PO SCH (07:52)
[2020-12-13] MEDS: predniSONE 10 MG TAB PO SCH (07:52)
[2020-12-13] MEDS: CARVedilol 12.5 MG TAB PO SCH ×2 (07:53→20:14)
[2020-12-13] MEDS: BUMETANIDE 1 MG TAB PO SCH (07:53)
[2020-12-13] MEDS: APIXABAN 5 MG TAB (ELIQUIS) PO SCH ×2 (07:54→20:14)
[2020-12-13] MEDS: ATORVASTATIN 20 MG TAB PO SCH (07:55)
[2020-12-13] MEDS: NYSTATIN 100,000 UNITS/GM TOPICAL PWD 15 GM TOP SCH ×2 (07:55→20:16)
[2020-12-13] MEDS: PANTOPRAZOLE 40MG TAB (PROTONIX) PO SCH (07:55)
[2020-12-13] MEDS: ANALGESIC BALM CRM 3OZ TOP SCH ×4 (09:00→20:16)
[2020-12-13] MEDS ORDERED: MORPHINE 4 MG/ML 1ML VIAL/SYRINGE (J2270) IV PRN (10:25)
[2020-12-13] MEDS: ACETAMINOPHEN TAB 650MG DOSE (2X325MG) PO SCH ×3 (11:00→20:16)
[2020-12-13] MEDS: AMITRIPTYLINE 50 MG TAB PO SCH (20:15)
[2020-12-13] MEDS: traMADol 50 MG TAB PO PRN (20:27)
[2020-12-14] MEDS: SODIUM CHLORIDE 0.9% INJ 10 ML SYR IV SCH ×2 (05:33→17:04)
[2020-12-14] MEDS: hydrOXYzine 25 MG TAB PO SCH ×3 (05:34→17:00)
[2020-12-14 06:00] VITALS: BP 127/66
[2020-12-14] MEDS: HumaLOG INSULIN (NovoLOG) PER UNIT SC SCH ×4 (08:32→21:00)
[2020-12-14] MEDS: FEBUXOSTAT 40 MG TABLET (ULORIC) PO SCH (08:32)
[2020-12-14] MEDS: APIXABAN 5 MG TAB (ELIQUIS) PO SCH ×2 (08:32→20:28)
[2020-12-14] MEDS: PANTOPRAZOLE 40MG TAB (PROTONIX) PO SCH (08:33)
[2020-12-14] MEDS: ASPIRIN 81MG ENTERIC TABLET PO SCH (08:33)
[2020-12-14] MEDS: SENOKOT S TAB PO SCH ×2 (08:33→20:28)
[2020-12-14] MEDS: BUMETANIDE 1 MG TAB PO SCH (08:33)
[2020-12-14] MEDS: MAGNESIUM OXIDE 400MG TAB (MAG-OX) PO SCH (08:34)
[2020-12-14] MEDS: ASCORBIC ACID 500 MG TAB PO SCH (08:34)
[2020-12-14] MEDS: CARVedilol 12.5 MG TAB PO SCH ×2 (08:34→20:28)
[2020-12-14] MEDS: predniSONE 10 MG TAB PO SCH (08:34)
[2020-12-14] MEDS: ATORVASTATIN 20 MG TAB PO SCH (08:35)
[2020-12-14] MEDS: NYSTATIN 100,000 UNITS/GM TOPICAL PWD 15 GM TOP SCH ×2 (08:35→21:00)
[2020-12-14] MEDS: ACETAMINOPHEN TAB 650MG DOSE (2X325MG) PO SCH ×3 (08:35→20:28)
[2020-12-14] MEDS: ANALGESIC BALM CRM 3OZ TOP SCH ×4 (08:36→21:00)
[2020-12-14] MEDS: MIRALAX *UNIT DOSE* 17GM PACKET PO PRN (08:39)
[2020-12-14 14:00] VITALS: BP 121/62
[2020-12-14] MEDS: AMITRIPTYLINE 50 MG TAB PO SCH (20:27)
[2020-12-14] MEDS: traMADol 50 MG TAB PO PRN (20:27)
[2020-12-15] MEDS: hydrOXYzine 25 MG TAB PO SCH ×4 (05:03→17:10)
[2020-12-15] MEDS: SODIUM CHLORIDE 0.9% INJ 10 ML SYR IV SCH ×2 (05:04→17:11)
[2020-12-15 06:00] VITALS: BP 150/72
[2020-12-15] MEDS: ACETAMINOPHEN TAB 650MG DOSE (2X325MG) PO SCH ×3 (08:39→20:55)
[2020-12-15] MEDS: FEBUXOSTAT 40 MG TABLET (ULORIC) PO SCH (08:39)
[2020-12-15] MEDS: HumaLOG INSULIN (NovoLOG) PER UNIT SC SCH ×4 (08:39→20:55)
[2020-12-15] MEDS: ASPIRIN 81MG ENTERIC TABLET PO SCH (08:39)
[2020-12-15] MEDS: CARVedilol 12.5 MG TAB PO SCH ×2 (08:40→20:55)
[2020-12-15] MEDS: SENOKOT S TAB PO SCH ×2 (08:40→20:54)
[2020-12-15] MEDS: ATORVASTATIN 20 MG TAB PO SCH (08:41)
[2020-12-15] MEDS: APIXABAN 5 MG TAB (ELIQUIS) PO SCH ×2 (08:41→20:55)
[2020-12-15] MEDS: PANTOPRAZOLE 40MG TAB (PROTONIX) PO SCH (08:41)
[2020-12-15] MEDS: ASCORBIC ACID 500 MG TAB PO SCH (08:41)
[2020-12-15] MEDS: BUMETANIDE 1 MG TAB PO SCH (08:41)
[2020-12-15] MEDS: NYSTATIN 100,000 UNITS/GM TOPICAL PWD 15 GM TOP SCH ×2 (08:42→20:56)
[2020-12-15] MEDS: ANALGESIC BALM CRM 3OZ TOP SCH (08:42)
[2020-12-15] MEDS: MIRALAX *UNIT DOSE* 17GM PACKET PO PRN (13:00)
[2020-12-15 14:00] VITALS: BP 142/61
[2020-12-15] MEDS: AMITRIPTYLINE 50 MG TAB PO SCH (20:55)
[2020-12-16] MEDS: traMADol 50 MG TAB PO PRN (04:59)
[2020-12-16 06:00] VITALS: BP 137/73
[2020-12-16] MEDS: hydrOXYzine 25 MG TAB PO SCH ×2 (06:00)
[2020-12-16] MEDS: SODIUM CHLORIDE 0.9% INJ 10 ML SYR IV SCH ×2 (06:06→17:36)
[2020-12-16] MEDS: HumaLOG INSULIN (NovoLOG) PER UNIT SC SCH ×4 (08:15→20:48)
[2020-12-16] MEDS: SENOKOT S TAB PO SCH ×2 (08:16→20:46)
[2020-12-16] MEDS: APIXABAN 5 MG TAB (ELIQUIS) PO SCH ×2 (08:16→20:46)
[2020-12-16] MEDS: FEBUXOSTAT 40 MG TABLET (ULORIC) PO SCH (08:16)
[2020-12-16] MEDS: ASCORBIC ACID 500 MG TAB PO SCH (08:16)
[2020-12-16] MEDS: PANTOPRAZOLE 40MG TAB (PROTONIX) PO SCH (08:16)
[2020-12-16] MEDS: BUMETANIDE 1 MG TAB PO SCH (08:16)
[2020-12-16] MEDS: ACETAMINOPHEN TAB 650MG DOSE (2X325MG) PO SCH ×3 (08:17→20:46)
[2020-12-16] MEDS: MAGNESIUM OXIDE 400MG TAB (MAG-OX) PO SCH (08:17)
[2020-12-16] MEDS: ASPIRIN 81MG ENTERIC TABLET PO SCH (08:17)
[2020-12-16] MEDS: ATORVASTATIN 20 MG TAB PO SCH (08:17)
[2020-12-16] MEDS: CARVedilol 12.5 MG TAB PO SCH ×2 (08:18→20:47)
[2020-12-16] MEDS: NYSTATIN 100,000 UNITS/GM TOPICAL PWD 15 GM TOP SCH ×2 (08:18→20:47)
[2020-12-16] MEDS: MIRALAX *UNIT DOSE* 17GM PACKET PO PRN (12:51)
[2020-12-16] MEDS: AMITRIPTYLINE 50 MG TAB PO SCH (20:46)
[2020-12-17] MEDS: SODIUM CHLORIDE 0.9% INJ 10 ML SYR IV SCH ×2 (06:06→17:27)
[2020-12-17 06:07] VITALS: BP 139/73
[2020-12-17] MEDS: ASPIRIN 81MG ENTERIC TABLET PO SCH (08:21)
[2020-12-17] MEDS: SENOKOT S TAB PO SCH ×2 (08:21→20:47)
[2020-12-17] MEDS: HumaLOG INSULIN (NovoLOG) PER UNIT SC SCH ×4 (08:21→20:48)
[2020-12-17] MEDS: ATORVASTATIN 20 MG TAB PO SCH (08:21)
[2020-12-17] MEDS: APIXABAN 5 MG TAB (ELIQUIS) PO SCH ×2 (08:22→20:47)
[2020-12-17] MEDS: ASCORBIC ACID 500 MG TAB PO SCH (08:22)
[2020-12-17] MEDS: FEBUXOSTAT 40 MG TABLET (ULORIC) PO SCH (08:22)
[2020-12-17] MEDS: PANTOPRAZOLE 40MG TAB (PROTONIX) PO SCH (08:22)
[2020-12-17] MEDS: BUMETANIDE 1 MG TAB PO SCH (08:22)
[2020-12-17] MEDS: ACETAMINOPHEN TAB 650MG DOSE (2X325MG) PO SCH ×3 (08:23→20:46)
[2020-12-17] MEDS: CARVedilol 12.5 MG TAB PO SCH ×2 (08:25→20:47)
[2020-12-17] MEDS: NYSTATIN 100,000 UNITS/GM TOPICAL PWD 15 GM TOP SCH ×2 (08:25→20:47)
--- NOTE | 2020-12-17 19:27 | IPNPDOC ---
Subjective Date Seen The patient was seen on 12/17/20. Subjective Chief Complaint/HPI Patient did not have any complaints this morning. Patient is awaiting to get her second Covid shot on December 28 before going to a assisted. Patient's wounds on the right stump and right thigh checked. Objective Physical Examination General Exam: Positive: Alert, Cooperative, No Acute Distress Eye Exam: Positive: Conjunctiva & lids normal, EOMI; Negative: Sclera icteric Neck Exam: Positive: Supple; Negative: JVD, thyromegaly Chest Exam: Positive: Clear to auscultation Heart Exam: Positive: Rate Normal, Regular Rhythm, Normal S1, Normal S2; Negative: Murmurs, Rubs Abdomen Exam: Positive: Normal bowel sounds, Soft; Negative: Tenderness Extremity Exam: Positive: Other (Right AKA. Right thigh wound) Psych Exam: Positive: Mood NL, Oriented x 3 Assessment /Plan Assessment A 65-year-old female with DM, PAD, Neuropathy admitted with right calcaneal osteomyelitis, ultimately underwent right leg [id number]-[id number] amputation then suffered a right MCA stroke with left hemiparesis now awaiting placement. Patient acquired COVID vaccination first dose on 12/07/2020, second dose due on 12/28. After second dose of vaccine patient will be going to [facility]. Right heel ulcer with acute osteomyelitis of the calcaneum with PAD and neuropathy: Status post right AKA. Dr. Bone status post posterior resection of the right calcaneus 09/29/2020, right SFA angioplasty 10/12/[address] Maya, right AKA on 11/21/[address] Venegas, exploration to stop the bleeding on 11/26/2020: Right stump healed except at 1 spot there is small amount of serous discharge. ID consulted. Completed 6 weeks of antibiotics. Awaiting rehab placement in [place]. Right thigh ulcer along the skin fold with forming eschar evaluated by Dr Rashid dressings ordered as per his reccomendation will need debridement. Sacral Decubiti ulcer stage [address] Rashid. Dressing as per his recommendations. Ulcer beside the PICC insertion site picc line removed. dressing as per Dr Rashid's recommendations. Acute right MCA CVA with left sided weakness on 10/20/2020: Because of patient's pacemaker unable to obtain an MRI. Currently on aspirin, atorvastatin and Eliquis. Neurology was consulted. Chronic systolic congestive heart failure: Compensated status post AICD and biventricular pacing Bumex, Coreg, lisinopril. No signs of decompensation. Dysphagia: Speech therapy has been consulted secondary to recent CVA. Blood loss anemia status post exploration of the right AKA on 11/26/2020 which stopped the bleeding: Status post 6 units RBC transfusion and 2 units of fresh frozen plasma transfusion. Hb has been stable. Type-2 insulin dependent diabetes: Currently on consistent carbohydrate diet, insulin sliding scale with coverage. Hypertension: On Coreg, Bumex, lisinopril and Norvasc. Chronic afib: On Coreg and Eliquis. Currently rate controlled. Dyslipidemia: On atorvastatin. Gout: On Febuxostat. Chronic kidney disease stage 3: creatinine better than baseline Chronic diabetic neuropathy: On amitriptyline. Disposition: Patient is awaiting to go to [place] rehab after second dose of COVID vaccine. Plan/VTE VTE Prophylaxis Ordered?: Yes VS, I&O, 24H, Fishbone Vital Signs/I&O Vital Signs Date Time Temp Pulse Resp B/P (MAP) Pulse Ox O2 Delivery O2 Flow Rate FiO2 12/17/20 08:25 63 139/73 12/17/20 06:07 97.9 18 100 Room Air I&O- Last 24 Hours up to 6 AM 12/17/20 06:00 Intake Total 350 ml Output Total 1550 ml Balance -1200 ml Laboratory Data 24H LABS Laboratory Tests 2 12/16/20 19:42: Bedside Glucose (Misc Panel) 189H 12/17/20 06:04: Bedside Glucose (Misc Panel) 152H 12/17/20 11:34: Bedside Glucose (Misc Panel) 186H 12/17/20 17:05: Bedside Glucose (Misc Panel) 115 Regina Rangel MD Dec 17, 2020 19:27
[2020-12-17] MEDS: AMITRIPTYLINE 50 MG TAB PO SCH (20:47)
[2020-12-18] MEDS: traMADol 50 MG TAB PO PRN ×2 (05:07→21:05)
[2020-12-18] MEDS: SODIUM CHLORIDE 0.9% INJ 10 ML SYR IV SCH (05:08)
[2020-12-18 06:00] VITALS: BP 142/75
[2020-12-18] MEDS: ATORVASTATIN 20 MG TAB PO SCH (08:27)
[2020-12-18] MEDS: ASCORBIC ACID 500 MG TAB PO SCH (08:28)
[2020-12-18] MEDS: PANTOPRAZOLE 40MG TAB (PROTONIX) PO SCH (08:28)
[2020-12-18] MEDS: ACETAMINOPHEN TAB 650MG DOSE (2X325MG) PO SCH ×3 (08:28→21:05)
[2020-12-18] MEDS: ASPIRIN 81MG ENTERIC TABLET PO SCH (08:29)
[2020-12-18] MEDS: SENOKOT S TAB PO SCH ×3 (08:29→21:03)
[2020-12-18] MEDS: FEBUXOSTAT 40 MG TABLET (ULORIC) PO SCH (08:29)
[2020-12-18] MEDS: BUMETANIDE 1 MG TAB PO SCH (08:29)
[2020-12-18] MEDS: CARVedilol 12.5 MG TAB PO SCH ×2 (08:29→21:00)
[2020-12-18] MEDS: APIXABAN 5 MG TAB (ELIQUIS) PO SCH ×2 (08:29→21:04)
[2020-12-18] MEDS: HumaLOG INSULIN (NovoLOG) PER UNIT SC SCH ×4 (08:31→21:00)
[2020-12-18] MEDS: MAGNESIUM OXIDE 400MG TAB (MAG-OX) PO SCH (08:34)
[2020-12-18] MEDS: NYSTATIN 100,000 UNITS/GM TOPICAL PWD 15 GM TOP SCH ×2 (08:34→22:26)
[2020-12-18 11:00] LABS: HEMATOCRIT 29.1 % (36.0-47.0); HEMOGLOBIN 9.6 g/dl (12.0-15.5); MEAN CORPUSCULAR HEMOGLOBIN 28.7 pg (27.0-33.0); MEAN CORPUSCULAR VOLUME 86.9 fl (80.0-96.0); PLATELET COUNT, AUTOMATED 293 10^3/uL (150-450); RED BLOOD COUNT 3.35 10^6/uL (4.00-5.40); WHITE BLOOD COUNT 11.3 10^3/uL (4.0-10.0)
[2020-12-18 12:28] LABS: BLOOD UREA NITROGEN 17 MG/DL (7-18); CARBON DIOXIDE LEVEL 32 MEQ/L (21-32); CHLORIDE LEVEL 99 MEQ/L (98-107); CREATININE FOR GFR 0.57 MG/DL (0.55-1.30); GLOMERULAR FILTRATION RATE > 60.0 (>45); GLUCOSE, FASTING 187 MG/DL (70-100); POTASSIUM SERUM 3.7 MEQ/L (3.5-5.1); SODIUM LEVEL 134 MEQ/L (136-145)
[2020-12-18] MEDS: MIRALAX *UNIT DOSE* 17GM PACKET PO PRN (12:49)
--- NOTE | 2020-12-18 16:10 | CR ---
ADVANCED WOUND CARE CONSULTATION VIA TELEMEDICINE DATE: 12/18/2020 REQUESTING PHYSICIAN: Dr. Regina Rangel CONSULTING PHYSICIAN: Dr. Doug Rashid REASON FOR CONSULTATION: Right medial thigh wound, a coccyx wound and a skin tear involving an IV site. Wound care telemedicine provides a visual assessment of a wound or wounds without the benefit of physical examination. This can assist with establishing a diagnosis and etiology. This allows for an initial treatment plan. As wounds often change, it may be necessary to modify the original care. Our recommendation is periodic wound reassessment to monitor treatment. Failure to comply may result in non-healing of the wound, possible complications and/or a poor outcome. The recommendations given will serve as treatment options. As I will not be following this patient, this care plan will require the attending physician to give and sign the orders. Upon discharge, outpatient follow up can be scheduled at our [facility]. HISTORY OF PRESENT ILLNESS: A 65-year-old, obese, poorly controlled diabetic female, status post right above knee amputation for an advanced right diabetic foot wound and advanced peripheral vascular disease, not amenable to angioplasty or bypass. The patient's amputation site has healed nicely. There is however some gravitational dependent edema noted. No open wounds present and no erythema seen. On the medial aspect, there is a skin fold which initially presented as a moisture associated skin damage, and it has no progressed to a full thickness wound with a black thick eschar. There is no purulent drainage and wound edges are attached and the periwound shows no erythema, maceration or ischemic change. This wound measures 15.0 cm by 2.5 cm in width. The central portion shows a fixed black eschar. It is dry and non-fluctuant. On the coccyx, there is a stage 3 pressure injury which forms a cluster. This measures 15.5 cm by 13.0 cm with a wound depth of 0.1 cm. On the right upper arm, the patient has an IV lock which is showing a skin tear of approximately 1.0 cm by 1.0 cm. There is no purulent drainage noted and no erythema seen. TREATMENT RECOMMENDATIONS: The patient has a Landis catheter which for the time being is acceptable to avoid incontinent associated skin damage regarding the sacral coccyx wound . Right medial thigh will require surgical debridement which can be performed at bedside utilizing local anesthesia. The fixed black eschar needs to be excised. This can be followed with Hydrofera Blue Norberto covered with a foam dressing. In terms of the coccyx, the area can be cleansed with Vashe Wound Cleanser for 10 minutes, and then covered with a Hydrofera Blue READY. In terms of the skin tear, treatment suggestion Hydrofera Blue Classic cut into a small piece, moistened and applied to the area which is then secured with the Tegaderm. This should be changed every 2-3 days as needed. The patient's glucose has fluctuated in the low 200's and ideally this should be 180 or less and an effort to improve glycemic control would certainly benefit the wounds. Stump general cleaner for the amputated right lower extremity above-knee site is desirable The patient apparently is not eating very well, does not like the food. Tabasco Hot Sauce would be suggested for the food, as her ethnic background does not really care for bland food. When the patient is placed or discharged, please refer the patient back to our [facility] for optimal care. DEVENDRA
[2020-12-18 21:00] VITALS: BP 114/72
[2020-12-18] MEDS: AMITRIPTYLINE 50 MG TAB PO SCH (21:04)
[2020-12-19 06:00] VITALS: BP 128/62
[2020-12-19] MEDS: PANTOPRAZOLE 40MG TAB (PROTONIX) PO SCH (08:36)
[2020-12-19] MEDS: SENOKOT S TAB PO SCH ×2 (08:36→19:46)
[2020-12-19] MEDS: HumaLOG INSULIN (NovoLOG) PER UNIT SC SCH ×4 (08:36→19:45)
[2020-12-19] MEDS: FEBUXOSTAT 40 MG TABLET (ULORIC) PO SCH (08:36)
[2020-12-19] MEDS: APIXABAN 5 MG TAB (ELIQUIS) PO SCH ×2 (08:36→19:46)
[2020-12-19] MEDS: ACETAMINOPHEN TAB 650MG DOSE (2X325MG) PO SCH ×3 (08:37→19:46)
[2020-12-19] MEDS: ASPIRIN 81MG ENTERIC TABLET PO SCH (08:37)
[2020-12-19] MEDS: ASCORBIC ACID 500 MG TAB PO SCH (08:37)
[2020-12-19] MEDS: BUMETANIDE 1 MG TAB PO SCH (08:38)
[2020-12-19] MEDS: ATORVASTATIN 20 MG TAB PO SCH (08:38)
[2020-12-19] MEDS: CARVedilol 12.5 MG TAB PO SCH ×2 (08:38→19:48)
[2020-12-19] MEDS: NYSTATIN 100,000 UNITS/GM TOPICAL PWD 15 GM TOP SCH ×2 (08:39→19:50)
[2020-12-19] MEDS: MIRALAX *UNIT DOSE* 17GM PACKET PO SCH (10:30)
[2020-12-19] MEDS: AMITRIPTYLINE 50 MG TAB PO SCH (19:46)
[2020-12-19] MEDS: traMADol 50 MG TAB PO PRN (19:46)
[2020-12-20 06:00] VITALS: BP 154/73
[2020-12-20] MEDS: MIRALAX *UNIT DOSE* 17GM PACKET PO SCH (08:20)
[2020-12-20] MEDS: SENOKOT S TAB PO SCH ×2 (08:20→21:02)
[2020-12-20] MEDS: ATORVASTATIN 20 MG TAB PO SCH (08:20)
[2020-12-20] MEDS: HumaLOG INSULIN (NovoLOG) PER UNIT SC SCH ×4 (08:20→21:00)
[2020-12-20] MEDS: BUMETANIDE 1 MG TAB PO SCH (08:21)
[2020-12-20] MEDS: ACETAMINOPHEN TAB 650MG DOSE (2X325MG) PO SCH ×3 (08:21→21:03)
[2020-12-20] MEDS: ASPIRIN 81MG ENTERIC TABLET PO SCH (08:21)
[2020-12-20] MEDS: FEBUXOSTAT 40 MG TABLET (ULORIC) PO SCH (08:21)
[2020-12-20] MEDS: traMADol 50 MG TAB PO PRN ×2 (08:22→17:47)
[2020-12-20] MEDS: MAGNESIUM OXIDE 400MG TAB (MAG-OX) PO SCH (08:22)
[2020-12-20] MEDS: PANTOPRAZOLE 40MG TAB (PROTONIX) PO SCH (08:22)
[2020-12-20] MEDS: APIXABAN 5 MG TAB (ELIQUIS) PO SCH ×2 (08:22→21:02)
[2020-12-20] MEDS: ASCORBIC ACID 500 MG TAB PO SCH (08:23)
[2020-12-20] MEDS: NYSTATIN 100,000 UNITS/GM TOPICAL PWD 15 GM TOP SCH (08:23)
[2020-12-20] MEDS: CARVedilol 12.5 MG TAB PO SCH ×2 (08:23→21:00)
[2020-12-20] MEDS ORDERED: NYSTATIN 100,000 UNITS/GM TOPICAL PWD 15 GM TOP PRN (08:30)
[2020-12-20] MEDS: FLEET ENEMA PR PRN (13:39)
[2020-12-20] MEDS: AMITRIPTYLINE 50 MG TAB PO SCH (21:02)
[2020-12-20] MEDS: BISACODYL 10 MG SUPP PR SCH (21:03)
[2020-12-21 06:00] VITALS: BP 157/73
[2020-12-21] MEDS: HumaLOG INSULIN (NovoLOG) PER UNIT SC SCH ×4 (08:07→20:30)
[2020-12-21] MEDS: CARVedilol 12.5 MG TAB PO SCH ×2 (08:08→20:29)
[2020-12-21] MEDS: ATORVASTATIN 20 MG TAB PO SCH (08:09)
[2020-12-21] MEDS: BUMETANIDE 1 MG TAB PO SCH (08:09)
[2020-12-21] MEDS: ASPIRIN 81MG ENTERIC TABLET PO SCH (08:09)
[2020-12-21] MEDS: PANTOPRAZOLE 40MG TAB (PROTONIX) PO SCH (08:10)
[2020-12-21] MEDS: ASCORBIC ACID 500 MG TAB PO SCH (08:10)
[2020-12-21] MEDS: APIXABAN 5 MG TAB (ELIQUIS) PO SCH ×2 (08:10→21:15)
[2020-12-21] MEDS: FEBUXOSTAT 40 MG TABLET (ULORIC) PO SCH (08:10)
[2020-12-21] MEDS: ACETAMINOPHEN TAB 650MG DOSE (2X325MG) PO SCH ×3 (08:11→21:16)
[2020-12-21] MEDS: BISACODYL 10 MG SUPP PR SCH ×2 (09:00→21:00)
[2020-12-21] MEDS: SENOKOT S TAB PO SCH ×2 (09:00→21:00)
[2020-12-21] MEDS: MIRALAX *UNIT DOSE* 17GM PACKET PO SCH (09:00)
[2020-12-21 19:22] VITALS: BP 107/68
[2020-12-21] MEDS: AMITRIPTYLINE 50 MG TAB PO SCH (21:15)
[2020-12-21] MEDS: traMADol 50 MG TAB PO PRN (21:16)
[2020-12-22 06:25] VITALS: BP 157/76
[2020-12-22] MEDS: HumaLOG INSULIN (NovoLOG) PER UNIT SC SCH ×4 (07:52→21:00)
[2020-12-22] MEDS: CARVedilol 12.5 MG TAB PO SCH ×2 (08:41→20:22)
[2020-12-22] MEDS: ASPIRIN 81MG ENTERIC TABLET PO SCH (08:41)
[2020-12-22] MEDS: BUMETANIDE 1 MG TAB PO SCH (08:41)
[2020-12-22] MEDS: ATORVASTATIN 20 MG TAB PO SCH (08:42)
[2020-12-22] MEDS: APIXABAN 5 MG TAB (ELIQUIS) PO SCH ×2 (08:42→20:21)
[2020-12-22] MEDS: MAGNESIUM OXIDE 400MG TAB (MAG-OX) PO SCH (08:42)
[2020-12-22] MEDS: MIRALAX *UNIT DOSE* 17GM PACKET PO SCH (08:43)
[2020-12-22] MEDS: PANTOPRAZOLE 40MG TAB (PROTONIX) PO SCH (08:43)
[2020-12-22] MEDS: SENOKOT S TAB PO SCH ×2 (08:43→20:24)
[2020-12-22] MEDS: ACETAMINOPHEN TAB 650MG DOSE (2X325MG) PO SCH ×3 (08:44→20:22)
[2020-12-22] MEDS: ASCORBIC ACID 500 MG TAB PO SCH (08:44)
[2020-12-22] MEDS: FEBUXOSTAT 40 MG TABLET (ULORIC) PO SCH (08:44)
[2020-12-22] MEDS: BISACODYL 10 MG SUPP PR SCH ×2 (08:44→20:22)
[2020-12-22] MEDS: AMITRIPTYLINE 50 MG TAB PO SCH (20:21)
[2020-12-23 06:00] VITALS: BP 153/73
[2020-12-23] MEDS: HumaLOG INSULIN (NovoLOG) PER UNIT SC SCH ×4 (08:05→20:59)
[2020-12-23] MEDS: APIXABAN 5 MG TAB (ELIQUIS) PO SCH ×2 (08:05→20:37)
[2020-12-23] MEDS: MIRALAX *UNIT DOSE* 17GM PACKET PO SCH (08:05)
[2020-12-23] MEDS: BUMETANIDE 1 MG TAB PO SCH (08:06)
[2020-12-23] MEDS: SENOKOT S TAB PO SCH ×2 (08:06→20:36)
[2020-12-23] MEDS: ASCORBIC ACID 500 MG TAB PO SCH (08:06)
[2020-12-23] MEDS: ATORVASTATIN 20 MG TAB PO SCH (08:06)
[2020-12-23] MEDS: ACETAMINOPHEN TAB 650MG DOSE (2X325MG) PO SCH ×3 (08:07→20:36)
[2020-12-23] MEDS: FEBUXOSTAT 40 MG TABLET (ULORIC) PO SCH (08:07)
[2020-12-23] MEDS: CARVedilol 12.5 MG TAB PO SCH ×2 (08:07→20:37)
[2020-12-23] MEDS: BISACODYL 10 MG SUPP PR SCH ×2 (08:08→20:38)
[2020-12-23] MEDS: PANTOPRAZOLE 40MG TAB (PROTONIX) PO SCH (08:08)
[2020-12-23] MEDS: ASPIRIN 81MG ENTERIC TABLET PO SCH (08:08)
[2020-12-23] MEDS: AMITRIPTYLINE 50 MG TAB PO SCH (20:38)
[2020-12-23] MEDS: traMADol 50 MG TAB PO PRN (20:38)
[2020-12-24 06:00] VITALS: BP 148/72
[2020-12-24] MEDS: ATORVASTATIN 20 MG TAB PO SCH (08:30)
[2020-12-24] MEDS: HumaLOG INSULIN (NovoLOG) PER UNIT SC SCH ×4 (08:30→21:00)
[2020-12-24] MEDS: BISACODYL 10 MG SUPP PR SCH ×2 (08:31→21:00)
[2020-12-24] MEDS: SENOKOT S TAB PO SCH ×2 (08:31→21:00)
[2020-12-24] MEDS: ASCORBIC ACID 500 MG TAB PO SCH (08:32)
[2020-12-24] MEDS: BUMETANIDE 1 MG TAB PO SCH (08:32)
[2020-12-24] MEDS: FEBUXOSTAT 40 MG TABLET (ULORIC) PO SCH (08:32)
[2020-12-24] MEDS: ASPIRIN 81MG ENTERIC TABLET PO SCH (08:35)
[2020-12-24] MEDS: MIRALAX *UNIT DOSE* 17GM PACKET PO SCH (08:35)
[2020-12-24] MEDS: APIXABAN 5 MG TAB (ELIQUIS) PO SCH ×2 (08:35→19:32)
[2020-12-24] MEDS: ACETAMINOPHEN TAB 650MG DOSE (2X325MG) PO SCH ×3 (08:36→19:32)
[2020-12-24] MEDS: PANTOPRAZOLE 40MG TAB (PROTONIX) PO SCH (08:36)
[2020-12-24] MEDS: MAGNESIUM OXIDE 400MG TAB (MAG-OX) PO SCH (08:36)
[2020-12-24] MEDS: traMADol 50 MG TAB PO PRN (08:37)
[2020-12-24] MEDS: CARVedilol 12.5 MG TAB PO SCH ×3 (08:37→21:00)
--- NOTE | 2020-12-24 15:25 | IPNPDOC ---
Text Note Date of Service The patient was seen on 12/24/20. NOTE Subjective: Patient is a 65-year-old female who was initially admitted for diabetic foot wounds. Patient is awaiting to get her second Covid vaccination before if she is able to leave the [facility]. Patient does not have any new complaints at this time. Review of systems: General: Patient denies fevers HEENT: Patient denies headaches Cardiovascular: Patient denies chest pain Respiratory: Patient denies shortness of breath, cough Physical exam: Vitals: See below General: Alert and oriented female patient who was sitting up in bed when I walked in. Patient does not appear to be in any acute distress. HEENT: Normocephalic, atraumatic, moist mucous membranes. Neck: No lymphadenopathy or thyromegaly Cardiac: Regular rate and rhythm, no murmurs, normal S1, normal S2 Pulm: Clear to auscultation bilaterally. No wheezes, rhonchi, rales Abd: Nondistended, nontender to palpation, normal bowel sounds Ext: Right above-knee amputation, there is a right thigh wound that does have a black eschar on it. 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 Patient required Covid vaccination with first dose of , second dose due on 12/28/2020. 1. Right heel ulcer with acute osteomyelitis of the calcaneus with peripheral artery disease neuropathy, status post right knee AKA. Completed 6 weeks of antibiotics. Awaiting placement in [place] [facility]. 2. Right thigh ulcer to the skin fold forming eschar. He recommends hattie ridement. Surgical debridement possible tomorrow. 3. Sacral decubiti ulcer stage III. Dressing per Dr. Rashid's recommen dations. 4. Ulcer besides PICC line insertion site. PICC line has been removed. Continue dressing and wound care per Dr. Rashid. 5. Acute right MCA CVA with left-sided weakness on . Currently on aspirin, atorvastatin and Eliquis. 6. Chronic systolic heart failure. Compensated at this time. 7. Dysphagia. Speech therapy has been consulted. 8. Blood loss anemia status post exploration of right AKA on which stop bleeding. Status post 6 units of packed red blood cells and 2 units of fresh frozen plasma. Hemoglobin has been stable. 9. Type 2 diabetes mellitus. Currently on consistent carbohydrate diet, sliding scale insulin. 10. Hypertension. On Coreg, Bumex, lisinopril and Norvasc. 11. Chronic A. fib. On Coreg and Eliquis. Currently rate controlled. 12. Dyslipidemia. Continue atorvastatin. 13. Gout. Continue febuxostat 14. Chronic kidney disease stage III. Creatinine at baseline. 15. Chronic diabetic neuropathy. Continue amitriptyline. DVT Prophylaxis: Tadeo Disposition: Patient is due to receive her second Covid vaccine on 12/28/2020 and the patient will need to wait 2 weeks after this until she is fully vaccinated in order to go to [facility] rehab. VS,Fishbone, I+O VS, Fishbone, I+O Vital Signs Date Time Temp Pulse Resp B/P (MAP) Pulse Ox O2 Delivery O2 Flow Rate FiO2 12/24/20 09:07 18 12/24/20 08:37 61 129/44 12/24/20 06:00 98.4 100 Room Air I&O- Last 24 Hours up to 6 AM 12/24/20 06:00 Intake Total 1320 ml Output Total 1175 ml Balance 145 ml EKTA REYNOSO DO Dec 24, 2020 15:24
[2020-12-24] MEDS: AMITRIPTYLINE 50 MG TAB PO SCH (19:32)
[2020-12-25 06:00] VITALS: BP 134/61
[2020-12-25] MEDS: HumaLOG INSULIN (NovoLOG) PER UNIT SC SCH ×4 (08:08→20:25)
[2020-12-25] MEDS: ASPIRIN 81MG ENTERIC TABLET PO SCH (08:09)
[2020-12-25] MEDS: APIXABAN 5 MG TAB (ELIQUIS) PO SCH ×2 (08:09→20:24)
[2020-12-25] MEDS: BUMETANIDE 1 MG TAB PO SCH (08:09)
[2020-12-25] MEDS: CARVedilol 12.5 MG TAB PO SCH ×2 (08:09→20:25)
[2020-12-25] MEDS: MIRALAX *UNIT DOSE* 17GM PACKET PO SCH (08:10)
[2020-12-25] MEDS: ATORVASTATIN 20 MG TAB PO SCH (08:10)
[2020-12-25] MEDS: ASCORBIC ACID 500 MG TAB PO SCH (08:11)
[2020-12-25] MEDS: PANTOPRAZOLE 40MG TAB (PROTONIX) PO SCH (08:11)
[2020-12-25] MEDS: SENOKOT S TAB PO SCH ×2 (08:11→20:25)
[2020-12-25] MEDS: FEBUXOSTAT 40 MG TABLET (ULORIC) PO SCH (08:11)
[2020-12-25] MEDS: ACETAMINOPHEN TAB 650MG DOSE (2X325MG) PO SCH ×3 (08:11→20:24)
[2020-12-25] MEDS: BISACODYL 10 MG SUPP PR SCH ×2 (08:11→21:00)
[2020-12-25] MEDS ORDERED: LIDOCAINE W/EPINEPHRINE 1% 20ML VIAL SC ONE (09:00)
--- NOTE | 2020-12-25 16:27 | ROOPDOC ---
[facility] Report Of Operation Report of Operation DATE OF PROCEDURE: 12/25/20 PREPROCEDURE DIAGNOSES: necrotic skin/wound at right thigh crease above AKA stump. POSTPROCEDURE DIAGNOSES: necrotic skin/wound at right thigh crease above AKA stump.. PROCEDURE PERFORMED: Incision necrotic skin and superficial soft right thigh. SURGEON: Crescencio Lakhani MD ANESTHESIA: General Endotracheal Anesthesia. ESTIMATED BLOOD LOSS: Approximately 5 mL. COMPLICATIONS: none. REMARKS: Patient is a 65-year-old female, AKA for diabetic foot infection she has been bedridden and developed. A wound from a crease above the AKA stump. Relatively clean straight wound along the crease where there is a small amount of skin, no associated drainage. There is a centimeter by the wound care surgeon and recommended local debridement and thus I was asked to perform the debridement. I discussed this with the patient she was seen and I discussed this with the patient using the online translation service. Consent obtained for sharp debridement of the necrotic skin and probably minimal soft tissue. The wound measures 15 cm transversely and a centimeter in its greatest dimension along the previous other upper thigh but below the groin crease area. FINDINGS: Necrotic skin mostly 15 cm x 1 cm medial most portion about a centimeter in the amount of necrotic superficial soft tissue. No abscess. DESCRIPTION OF PROCEDURE: Patient remained at bedside. We paused for a surgical timeout using both pre- incision safety checklist to verify correct patient, procedure site and additional clinical information prior to beginning the procedure . The skin surrounding the necrotic skin on her thigh area was prepped with Betadine and sterile drapes were placed around the. I infiltrated the surrounding skin and subcutaneous tissue with 1% lidocaine containing epinephrine and using a 15 blade scalpel the necrotic skin was sharply debrided along with some of the attached necrotic soft tissue which was most prominent at the most medial part. Still we have healthy subcutaneous tissue. Hemostasis done with local pressure. I then packed the wound with wet-to-dry gauze dressings. Patient tolerated procedure well. The dressing was changed to the prescribed dressing by the wound care surgeon.. CRESCENCIO LAKHANI MD Dec 25, 2020 16:27
[2020-12-25] MEDS: AMITRIPTYLINE 50 MG TAB PO SCH (20:23)
[2020-12-25] MEDS: traMADol 50 MG TAB PO PRN (20:24)
[2020-12-26 06:49] VITALS: BP 164/73
[2020-12-26] MEDS: MIRALAX *UNIT DOSE* 17GM PACKET PO SCH ×2 (08:37→09:00)
[2020-12-26] MEDS: HumaLOG INSULIN (NovoLOG) PER UNIT SC SCH ×4 (08:37→21:00)
[2020-12-26] MEDS: ASPIRIN 81MG ENTERIC TABLET PO SCH (08:38)
[2020-12-26] MEDS: BUMETANIDE 1 MG TAB PO SCH (08:38)
[2020-12-26] MEDS: ATORVASTATIN 20 MG TAB PO SCH (08:38)
[2020-12-26] MEDS: ACETAMINOPHEN TAB 650MG DOSE (2X325MG) PO SCH ×3 (08:38→21:13)
[2020-12-26] MEDS: MAGNESIUM OXIDE 400MG TAB (MAG-OX) PO SCH (08:39)
[2020-12-26] MEDS: PANTOPRAZOLE 40MG TAB (PROTONIX) PO SCH (08:39)
[2020-12-26] MEDS: SENOKOT S TAB PO SCH ×2 (08:39→21:12)
[2020-12-26] MEDS: APIXABAN 5 MG TAB (ELIQUIS) PO SCH (08:39)
[2020-12-26] MEDS: FEBUXOSTAT 40 MG TABLET (ULORIC) PO SCH (08:40)
[2020-12-26] MEDS: CARVedilol 12.5 MG TAB PO SCH ×2 (08:40→21:14)
[2020-12-26] MEDS: ASCORBIC ACID 500 MG TAB PO SCH (08:40)
[2020-12-26] MEDS: traMADol 50 MG TAB PO PRN ×2 (08:41→17:08)
[2020-12-26] MEDS: BISACODYL 10 MG SUPP PR SCH ×2 (08:41→21:00)
[2020-12-26 20:30] LABS: HEMATOCRIT 30.7 % (36.0-47.0); HEMOGLOBIN 9.8 g/dl (12.0-15.5)
[2020-12-26 20:41] LABS: INR 1.6; PROTHROMBIN TIME 19.5 SECONDS (12.7-14.5)
[2020-12-26 20:42] LABS: PARTIAL THROMBOPLASTIN TIME 35.8 SECONDS (25.9-37.0)
[2020-12-26] MEDS: AMITRIPTYLINE 50 MG TAB PO SCH (21:13)
[2020-12-27 05:10] VITALS: BP 121/62
[2020-12-27] MEDS: ACETAMINOPHEN TAB 650MG DOSE (2X325MG) PO SCH ×3 (08:44→20:08)
[2020-12-27] MEDS: HumaLOG INSULIN (NovoLOG) PER UNIT SC SCH ×4 (08:44→20:08)
[2020-12-27] MEDS: BUMETANIDE 1 MG TAB PO SCH (08:45)
[2020-12-27] MEDS: ATORVASTATIN 20 MG TAB PO SCH (08:47)
[2020-12-27] MEDS: FEBUXOSTAT 40 MG TABLET (ULORIC) PO SCH (08:47)
[2020-12-27] MEDS: ASCORBIC ACID 500 MG TAB PO SCH (08:47)
[2020-12-27] MEDS: SENOKOT S TAB PO SCH ×2 (08:47→20:08)
[2020-12-27] MEDS: PANTOPRAZOLE 40MG TAB (PROTONIX) PO SCH (08:47)
[2020-12-27] MEDS: CARVedilol 12.5 MG TAB PO SCH ×2 (08:47→20:07)
[2020-12-27] MEDS: MIRALAX *UNIT DOSE* 17GM PACKET PO SCH (08:48)
[2020-12-27] MEDS: BISACODYL 10 MG SUPP PR SCH ×2 (08:48→20:08)
[2020-12-27] MEDS: ASPIRIN 81MG ENTERIC TABLET PO SCH (08:48)
--- NOTE | 2020-12-27 16:18 | IPNPDOC ---
Text Note Date of Service The patient was seen on 12/27/20. NOTE Subjective: 65-year-old female who I was called to the bedside by the patient's nurse due to an opening on the stump wound that was draining purulent discharge. They stated they expressed all the purulent discharge prior to changing the wound and asked that I come evaluate. Apparently overnight, the patient had bleeding from the thigh wound that was debrided and surgery had to come in place sutures. Patient not had any fevers for some time. Patient does not complain o f any pain in the area. Physical exam: Vitals: See below General: Alert and oriented female patient who was laying in bed listening to music when I walked in her room. Patient did not appear to be in any acute distress. Ext: Right zpffq-ura-qyvj amputation stump had a scab over the majority of the wound with a small area that was opened that was draining some bloody drainage with some cloudy fluid. Labs: See below Imaging: No imaging been performed Assessment/plan: 65-year-old female who has been hospitalized for almost 3 months for diabetic foot wound who is [facility] and is awaiting her Covid vaccination prior to going to who has some possible purulent drainage from her stump. 1. Right cremd-qyj-lkcp amputation stump wound. Patient does not appear to hooper ve any surrounding cellulitis. Laboratory studies have been ordered in order to fully evaluate whether or not patient has any systemic signs of infection although she does not have any of this. I will contact the general surgeon Dr. Lakhani who has been following the patient for further evaluation tomorrow. DVT Prophylaxis: Eliquis Disposition: Pending being fully vaccinated against COVID-19 VS,Fishbone, I+O VS, Fishbone, I+O Laboratory Tests 12/26/20 20:07 Vital Signs Date Time Temp Pulse Resp B/P (MAP) Pulse Ox O2 Delivery O2 Flow Rate FiO2 12/27/20 08:48 121/62 12/27/20 08:47 61 12/27/20 05:10 97.5 18 100 Room Air I&O- Last 24 Hours up to 6 AM 12/27/20 06:00 Intake Total 1020 ml Output Total 1850 ml Balance -830 ml EKTA REYNOSO DO Dec 27, 2020 16:18
[2020-12-27 16:54] LABS: BASO # 0.1 10^3/uL (0.0-0.2); BASO % 0.7 % (0.0-1.0); EOS # 1.5 10^3/uL (0.0-0.5); EOS % 15.5 % (0.0-3.0); HEMATOCRIT 27.8 % (36.0-47.0); HEMOGLOBIN 8.9 g/dl (12.0-15.5); LYMPH # 3.5 10^3/uL (1.5-5.0); LYMPH % 35.8 % (24.0-44.0); MEAN CORPUSCULAR VOLUME 87.4 fl (80.0-96.0); MONO # 0.9 10^3/uL (0.0-0.8); NEUTROPHILS # 3.8 10^3/uL (1.5-8.5); NEUTROPHILS % 38.7 % (36.0-66.0); PLATELET COUNT, AUTOMATED 343 10^3/uL (150-450); RED BLOOD COUNT 3.18 10^6/uL (4.00-5.40); WHITE BLOOD COUNT 9.7 10^3/uL (4.0-10.0)
[2020-12-27 17:14] LABS: BLOOD UREA NITROGEN 25 MG/DL (7-18); CALCIUM LEVEL 8.5 MG/DL (8.8-10.2); CARBON DIOXIDE LEVEL 33 MEQ/L (21-32); CHLORIDE LEVEL 96 MEQ/L (98-107); CREATININE FOR GFR 0.72 MG/DL (0.55-1.30); GLOMERULAR FILTRATION RATE > 60.0 (>45); GLUCOSE, FASTING 158 MG/DL (70-100); MAGNESIUM LEVEL 1.5 MG/DL (1.8-2.4); SODIUM LEVEL 135 MEQ/L (136-145)
[2020-12-27] MEDS: AMITRIPTYLINE 50 MG TAB PO SCH (20:07)
[2020-12-28 05:53] VITALS: BP 130/62
[2020-12-28] MEDS ORDERED: MAGNESIUM OXIDE 400MG TAB (MAG-OX) PO ONE (07:30)
[2020-12-28] MEDS: HumaLOG INSULIN (NovoLOG) PER UNIT SC SCH ×4 (08:12→21:00)
[2020-12-28] MEDS: BUMETANIDE 1 MG TAB PO SCH (08:13)
[2020-12-28] MEDS: CARVedilol 12.5 MG TAB PO SCH ×2 (08:13→21:28)
[2020-12-28] MEDS: ASPIRIN 81MG ENTERIC TABLET PO SCH (08:14)
[2020-12-28] MEDS: ATORVASTATIN 20 MG TAB PO SCH (08:14)
[2020-12-28] MEDS: MIRALAX *UNIT DOSE* 17GM PACKET PO SCH (08:14)
[2020-12-28] MEDS: SENOKOT S TAB PO SCH ×2 (08:15→21:00)
[2020-12-28] MEDS: PANTOPRAZOLE 40MG TAB (PROTONIX) PO SCH (08:15)
[2020-12-28] MEDS: FEBUXOSTAT 40 MG TABLET (ULORIC) PO SCH (08:16)
[2020-12-28] MEDS: ACETAMINOPHEN TAB 650MG DOSE (2X325MG) PO SCH ×3 (08:16→21:27)
[2020-12-28] MEDS: ASCORBIC ACID 500 MG TAB PO SCH (08:16)
[2020-12-28] MEDS: BISACODYL 10 MG SUPP PR SCH ×2 (08:16→21:00)
[2020-12-28] MEDS: MAGNESIUM OXIDE 400MG TAB (MAG-OX) PO SCH (08:35)
[2020-12-28] MEDS: AMITRIPTYLINE 50 MG TAB PO SCH (21:27)
[2020-12-29 06:00] VITALS: BP 155/70
[2020-12-29] MEDS: HumaLOG INSULIN (NovoLOG) PER UNIT SC SCH ×4 (08:06→20:18)
[2020-12-29] MEDS: BUMETANIDE 1 MG TAB PO SCH (08:11)
[2020-12-29] MEDS: MIRALAX *UNIT DOSE* 17GM PACKET PO SCH (08:12)
[2020-12-29] MEDS: ATORVASTATIN 20 MG TAB PO SCH (08:12)
[2020-12-29] MEDS: ASPIRIN 81MG ENTERIC TABLET PO SCH (08:12)
[2020-12-29] MEDS: CARVedilol 12.5 MG TAB PO SCH ×3 (08:12→20:09)
[2020-12-29] MEDS: PANTOPRAZOLE 40MG TAB (PROTONIX) PO SCH (08:13)
[2020-12-29] MEDS: SENOKOT S TAB PO SCH ×2 (08:13→20:17)
[2020-12-29] MEDS: ASCORBIC ACID 500 MG TAB PO SCH (08:14)
[2020-12-29] MEDS: FEBUXOSTAT 40 MG TABLET (ULORIC) PO SCH (08:14)
[2020-12-29] MEDS: ACETAMINOPHEN TAB 650MG DOSE (2X325MG) PO SCH ×3 (08:14→20:09)
[2020-12-29] MEDS: BISACODYL 10 MG SUPP PR SCH ×2 (08:14→20:18)
[2020-12-29 10:59] LABS: BASO # 0.1 10^3/uL (0.0-0.2); BASO % 0.8 % (0.0-1.0); EOS # 1.2 10^3/uL (0.0-0.5); EOS % 14.1 % (0.0-3.0); HEMATOCRIT 25.9 % (36.0-47.0); HEMOGLOBIN 8.3 g/dl (12.0-15.5); LYMPH # 2.6 10^3/uL (1.5-5.0); MEAN CORPUSCULAR HEMOGLOBIN 27.9 pg (27.0-33.0); MEAN CORPUSCULAR VOLUME 86.9 fl (80.0-96.0); MONO # 0.8 10^3/uL (0.0-0.8); MONO % 9.2 % (2.0-8.0); NEUTROPHILS % 45.7 % (36.0-66.0); PLATELET COUNT, AUTOMATED 324 10^3/uL (150-450); RED BLOOD COUNT 2.98 10^6/uL (4.00-5.40); WHITE BLOOD COUNT 8.7 10^3/uL (4.0-10.0)
[2020-12-29 11:28] LABS: BLOOD UREA NITROGEN 15 MG/DL (7-18); CALCIUM LEVEL 8.8 MG/DL (8.8-10.2); CARBON DIOXIDE LEVEL 32 MEQ/L (21-32); CHLORIDE LEVEL 101 MEQ/L (98-107); CREATININE FOR GFR 0.52 MG/DL (0.55-1.30); GLOMERULAR FILTRATION RATE > 60.0 (>45); GLUCOSE, FASTING 137 MG/DL (70-100); MAGNESIUM LEVEL 1.6 MG/DL (1.8-2.4); POTASSIUM SERUM 3.5 MEQ/L (3.5-5.1); SODIUM LEVEL 136 MEQ/L (136-145)
[2020-12-29] MEDS: AMITRIPTYLINE 50 MG TAB PO SCH (20:08)
[2020-12-30 06:00] LABS: BASO # 0.1 10^3/uL (0.0-0.2); BASO % 0.9 % (0.0-1.0); EOS # 1.4 10^3/uL (0.0-0.5); EOS % 15.4 % (0.0-3.0); HEMATOCRIT 26.2 % (36.0-47.0); HEMOGLOBIN 8.3 g/dl (12.0-15.5); LYMPH % 34.2 % (24.0-44.0); MEAN CORPUSCULAR HEMOGLOBIN 27.7 pg (27.0-33.0); MEAN CORPUSCULAR HGB CONC 31.7 g/dl (32.0-36.5); MEAN CORPUSCULAR VOLUME 87.3 fl (80.0-96.0); MONO # 0.8 10^3/uL (0.0-0.8); MONO % 9.1 % (2.0-8.0); NEUTROPHILS # 3.5 10^3/uL (1.5-8.5); NEUTROPHILS % 40.1 % (36.0-66.0); PLATELET COUNT, AUTOMATED 344 10^3/uL (150-450); WHITE BLOOD COUNT 8.8 10^3/uL (4.0-10.0)
[2020-12-30 06:25] LABS: BLOOD UREA NITROGEN 11 MG/DL (7-18); CALCIUM LEVEL 8.6 MG/DL (8.8-10.2); CARBON DIOXIDE LEVEL 34 MEQ/L (21-32); CHLORIDE LEVEL 100 MEQ/L (98-107); CREATININE FOR GFR 0.55 MG/DL (0.55-1.30); GLOMERULAR FILTRATION RATE > 60.0 (>45); GLUCOSE, FASTING 165 MG/DL (70-100); MAGNESIUM LEVEL 1.6 MG/DL (1.8-2.4); POTASSIUM SERUM 3.3 MEQ/L (3.5-5.1); SODIUM LEVEL 139 MEQ/L (136-145)
[2020-12-30 07:20] VITALS: BP 149/85
[2020-12-30] MEDS ORDERED: POTASSIUM CHLORIDE 10MEQ SR TABLET PO ONE (07:40)
[2020-12-30] MEDS: MAGNESIUM OXIDE 400MG TAB (MAG-OX) PO SCH (08:16)
[2020-12-30] MEDS: ASCORBIC ACID 500 MG TAB PO SCH (08:17)
[2020-12-30] MEDS: PANTOPRAZOLE 40MG TAB (PROTONIX) PO SCH (08:18)
[2020-12-30] MEDS: SENOKOT S TAB PO SCH ×2 (08:18→20:21)
[2020-12-30] MEDS: ACETAMINOPHEN TAB 650MG DOSE (2X325MG) PO SCH ×3 (08:19→20:20)
[2020-12-30] MEDS: FEBUXOSTAT 40 MG TABLET (ULORIC) PO SCH (08:19)
[2020-12-30] MEDS: ASPIRIN 81MG ENTERIC TABLET PO SCH (08:19)
[2020-12-30] MEDS: CARVedilol 12.5 MG TAB PO SCH ×2 (08:20→20:21)
[2020-12-30] MEDS: BUMETANIDE 1 MG TAB PO SCH (08:20)
[2020-12-30] MEDS: ATORVASTATIN 20 MG TAB PO SCH (08:20)
[2020-12-30] MEDS: HumaLOG INSULIN (NovoLOG) PER UNIT SC SCH ×4 (08:21→20:21)
[2020-12-30] MEDS: BISACODYL 10 MG SUPP PR SCH ×2 (08:22→20:22)
[2020-12-30] MEDS: MIRALAX *UNIT DOSE* 17GM PACKET PO SCH (08:22)
[2020-12-30] MEDS: traMADol 50 MG TAB PO PRN (10:07)
--- NOTE | 2020-12-30 14:34 | IPNPDOC ---
Text Note Date of Service The patient was seen on 12/30/20. NOTE Subjective: Patient is a 65-year-old female with a PMHx of HTN, CAD, Chronic A. fib, CHF, PVD, DLP, DM2, Gout, Vertigo, GERD who presented to the ER with complaints of infected R heel wound. Patient was admitted to the hospitalist service for further evaluation and treatment. Podiatry and ID were called on consultation. Patient's hospital course is fairly complicated. Initially patient had podiatry intervention of her right foot followed by vascular intervention with angioplasty. Patient was on prolonged antibiotics for a osteomyelitis. Her hospital course was complicated with an acute CVA with residual left-sided weakness. Patient had failed to improve with IV antibiotics after surgery was called for further evaluation and patient ultimately underwent a right-sided zlgxy-kvu-qppl amputation. Patient was seen and examined at the bedside. Patient reports that she is not in any significant pain. She denies any nausea, vomiting, chest pain, shortness breath or cough. Has not experience any abdominal pain. Denies any urinary discomfort. Nursing staff had changed the dressing on her medial right thigh and had noted some pus drainage. They contacted me for further evaluation Objective: Vitals (See below) General: Patient is lying in bed watching television, appears comfortable, no acute distress, AAO 3 HEENT: NC, AT CVS: +S1S2 Lungs: Air entry appears to be fair bilaterally without auscultated wheezing, crackles or rhonchi Abdomen: Soft, ND, NT Extremities: RLE with AKA, L LLE without edema Imaging: Extremity CT 10/05: 1. There is a large soft tissue ulceration defect seen in the medial heel pad of the right foot, best seen on image 108 of series 303. 2. Medial to the soft tissue defect there is a fluid and gas collection, likely an abscess, measuring 2.8 x 2.1 cm transversely on image 61 of series 302 and measuring 1.6 cm in craniocaudal dimension on image 104 of series 303. 3. The bony cortical outline and marrow defect underlying the soft tissue defect are suggestive of acute osteomyelitis on image 50 of series 302. 4. No acute fractures. 5. Chronic calcific enthesopathy is seen in the proximal Achilles on image 6 of series 302. Foot XR 10/07: Postsurgical changes at the posterior aspect of calcaneal process. No immediate complication is evident. Head CT 10/20: Mild generalized volume loss. No acute intracranial abnormality. CTA head 10/20: 1. Occluded right middle cerebral artery proximally. 2. Corresponding hypodensity in the right middle cerebral artery territory suggestive of acute infarct. No acute hemorrhage. CXR 11/03: Area of increased density in the right apex should be evaluated further with PA and lateral views. Slight cardiac enlargement. No evidence of failure or pneumonia. PICC line in place with tip in superior vena cava. Carotid Vascular US 10/20: According to the SRU criteria there is less than 50% stenosis of the internal carotid artery bilaterally. This is secondary to both calcified and noncalcified plaque formation CT Head 10/20: 1. There has been no change since a study done earlier in the day. No interval hemorrhage. 2. Minimal chronic ischemic white matter change and atrophy with ill-defined areas of slightly decreased attenuation in the right cerebral hemisphere centrally and subcortical parietal lobe which are unchanged. ECHO 10/20: 1. Study is of acceptable technical quality; underlying atrial fibrillation and ventricular pacing. 2. Normal LV size with moderate left ventricular hypertrophy and estimated LVEF of 45 to 50%. Septal wall motion abnormality likely related to pacing. 3. No hemodynamically significant aortic valvular disease in spite of prominent valvular sclerosis. 4. Mild to moderate mitral insufficiency. 5. Elevated central venous pressure and mild pulmonary hypertension. 6. Severe biatrial enlargement. 7. Suspicion for left to right shunt across atrial septum based on color D oppler imaging. 8. "Negative Bubble Study." Esophageal XR 10/21: The patient is able to be given all consistencies performed today. However, there is an increase risk with ingestion of all food because of delayed triggering and pooling in the vallecula. CT head 10/21: New area of abnormal decreased attenuation as described above consistent with an acute nonhemorrhagic infarction. MRI examination of the brain is recommended. CT head 10/22: Who ventricular nucleus and external capsule nonhemorrhagic infarct showing slight increase when compared with yesterday's examination. No evidence of hemorrhage or mass effect. CXR 10/22: Stable cardiomegaly. Cardiac electrodes remain in place Prominent lung markings -- perhaps lvmt-[id number] vascular congestion. Diffuse interstitial pneumonitis cannot be excluded. Clinical correlation is needed. Follow-up is suggested, as symptoms warrant. CXR 10/25: 1. There is moderate congestive change with moderate pulmonary edema. 2. Mild left basilar atelectasis or infiltrate. Foot XR 11/06: Soft tissue and bony defect along the posterior aspect of the foot involving calcaneus. Esophagus XR 11/11: Flash penetration as described above, a detailed report will be provided by speech pathology. 3.3 minutes of fluoroscopy time was utilized for this procedure. Some fluor oscopic images are performed with last image hold technology. These images require no additional radiation CT Head 11/11: Again noted is a subacute infarction in the distribution of the right lenticulostriate arteries. There are no complications evident. No significant change. Shoulder XR 11/16: No evidence of fracture or dislocation. There is arthritis of the acromioclavicular and glenohumeral joints. Arterial US 11/18: Occlusion distal right superficial femoral artery and proximal popliteal artery with reconstitution of the distal popliteal artery. Very slow flow in the distal calf arteries at the ankle. Assessment and plan: Infected RLE heel ulcer with acute osteomyelitis of the calcaneum; in the setting of vascular compromise; s/p R AKA - Wound appears clean without any significant erythema - No leukocytosis - Wound cultures 10/05: Escherichia coli, Morganella morganii, Enterococcus faecalis, MRSA - Wound cultures 10/07: Morganella morganii, Escherichia coli, Enterococcus inocencio calis - Wound culture 11/14: Pseudomonas aeruginosa - s/p Posterior resection of the right calcaneum on 10/07/[address] Bone - s/p Vascular intervention or R SFA angioplasty on 10/12/[address] Maya - s/p R AKA on 11/21/[address] Venegas; plans to remove TIKI drain 11/24 If INR is permissive - Imaging noted above - Podiatry, Vascular surgery, Interventional radiology, and infectious disease on consultation - s/p Antibiotic therapy; s/p Levaquin; Completed Zosyn (6 week course) - c/w PT and OT; will likely require rehabilitation moving forward Right medial thigh recently debrided with area of some drainage noted - Area does not reveal any significant erythema or tenderness - Mild drainage noted - Hemodynamically stable and afebrile - No leukocytosis - s/p Incision necrotic skin and superficial soft right thigh with Dr. Lakhani on 12/25/2020 - c/w dressing changes as per advanced care Dr. Rashid - Will reconsult General surgery / Advanced Wound care / Vascular surgery Sacral Decubitus Ulcer (Stage III) - c/w dressing changes as per Dr. Rashid Ulcer besides PICC line insertion site - s/p PICC line - c/w dressing and wound care per Dr. Rashid Acute right MCA stroke with left sided weakness - Patient had code stroke called on 8/10 AM - Imaging noted above; Unable to get MRI 2/2 PM - c/w ASA 81 / Atorvastatin / Eliquis - Neurology was consulted; appreciated their input Chronic Systolic CHF - No evidence of decompensation / fluid overload - Patient remains saturating at 96% on room air - s/p AICD / Biventricular pacing - c/w Bumetanide Dysphagia - c/w Speech therapy recommendations s/p Troponin elevation - likely 2/2 demand ischemia / NSTEMI (Type II) - Troponin has normalized - ECHO Noted above - Serial EKGs have shown no significant change - c/w Carvedilol, ASA 81 s/p Gram-negative bacteremia - Blood cultures 10/05: (1 of 2) Morganella Morganii - Blood cultures 10/06: Negative at 5 days - s/p Antibiotic therapy Anemia / Acute blood loss 2/2 bleeding from BKA site - s/p Exploration of the right above-knee amputation stump and control of bleeding on 11/26/[address] Venegas - s/p 6 units PRBC and 2 units FFP - Hg stable IDDM2 - c/w ISS and Levemir HTN - BP well controlled - c/w Carvedilol, Bumetanide, Lisinopril, Amlodipine Chronic Atrial fibrillation - c/w rate control with Carvedilol - c/w Eliquis DLP - c/w Gemfibrozil Gout - c/w Febuxostat CKD3 - Cr at baseline Neuropathy - c/w Amitriptyline GI prophylaxis - c/w Protonix DVT prophylaxis - c/w full anticoagulation with Eliquis Disposition: - c/w ALC status - Awaiting further evaluation of wound with General surgery / Vascular Surgery / Advanced wound care VS,Fishbone, I+O VS, Fishbone, I+O Laboratory Tests 12/30/20 05:13 Vital Signs Date Time Temp Pulse Resp B/P (MAP) Pulse Ox O2 Delivery O2 Flow Rate FiO2 12/30/20 10:37 16 12/30/20 08:20 60 149/85 12/30/20 07:20 99.0 100 Room Air I&O- Last 24 Hours up to 6 AM 12/30/20 06:00 Intake Total 520 ml Output Total 1650 ml Balance -1130 ml EMILY SOTO MD Dec 30, 2020 14:34
[2020-12-30] MEDS: AMITRIPTYLINE 50 MG TAB PO SCH (20:20)
[2020-12-31 06:00] VITALS: BP 136/65
[2020-12-31 06:42] LABS: BASO # 0.1 10^3/uL (0.0-0.2); EOS # 1.4 10^3/uL (0.0-0.5); EOS % 17.5 % (0.0-3.0); HEMATOCRIT 26.3 % (36.0-47.0); HEMOGLOBIN 8.2 g/dl (12.0-15.5); LYMPH # 2.9 10^3/uL (1.5-5.0); LYMPH % 36.7 % (24.0-44.0); MEAN CORPUSCULAR HEMOGLOBIN 27.4 pg (27.0-33.0); MEAN CORPUSCULAR HGB CONC 31.2 g/dl (32.0-36.5); MONO # 0.8 10^3/uL (0.0-0.8); MONO % 10.2 % (2.0-8.0); NEUTROPHILS # 2.7 10^3/uL (1.5-8.5); NEUTROPHILS % 34.3 % (36.0-66.0); PLATELET COUNT, AUTOMATED 333 10^3/uL (150-450); RED BLOOD COUNT 2.99 10^6/uL (4.00-5.40); WHITE BLOOD COUNT 7.8 10^3/uL (4.0-10.0)
[2020-12-31 07:25] LABS: BLOOD UREA NITROGEN 10 MG/DL (7-18); CALCIUM LEVEL 8.5 MG/DL (8.8-10.2); CARBON DIOXIDE LEVEL 31 MEQ/L (21-32); CHLORIDE LEVEL 102 MEQ/L (98-107); CREATININE FOR GFR 0.58 MG/DL (0.55-1.30); GLOMERULAR FILTRATION RATE > 60.0 (>45); GLUCOSE, FASTING 145 MG/DL (70-100); MAGNESIUM LEVEL 1.6 MG/DL (1.8-2.4); SODIUM LEVEL 139 MEQ/L (136-145)
[2020-12-31] MEDS: BUMETANIDE 1 MG TAB PO SCH (07:58)
[2020-12-31] MEDS: ATORVASTATIN 20 MG TAB PO SCH (07:58)
[2020-12-31] MEDS: FEBUXOSTAT 40 MG TABLET (ULORIC) PO SCH (07:59)
[2020-12-31] MEDS: ASPIRIN 81MG ENTERIC TABLET PO SCH (07:59)
[2020-12-31] MEDS: PANTOPRAZOLE 40MG TAB (PROTONIX) PO SCH (07:59)
[2020-12-31] MEDS: CARVedilol 12.5 MG TAB PO SCH ×2 (07:59→20:43)
[2020-12-31] MEDS: MIRALAX *UNIT DOSE* 17GM PACKET PO SCH (08:00)
[2020-12-31] MEDS: MAGNESIUM OXIDE 400MG TAB (MAG-OX) PO SCH ×2 (08:00→20:45)
[2020-12-31] MEDS: ASCORBIC ACID 500 MG TAB PO SCH (08:00)
[2020-12-31] MEDS: BISACODYL 10 MG SUPP PR SCH ×2 (08:02→20:46)
[2020-12-31] MEDS: HumaLOG INSULIN (NovoLOG) PER UNIT SC SCH ×4 (08:02→20:46)
[2020-12-31] MEDS: ACETAMINOPHEN TAB 650MG DOSE (2X325MG) PO SCH ×3 (08:02→20:45)
[2020-12-31] MEDS: SENOKOT S TAB PO SCH ×2 (08:08→20:46)
[2020-12-31] MEDS ORDERED: MAG SULF 1GM/100ML (MAG RUN) 1 GM in IV 1 EA IV SCH (09:00)
[2020-12-31] MEDS ORDERED: MAGNESIUM OXIDE 400MG TAB (MAG-OX) PO ONE (10:00)
[2020-12-31] MEDS: AMITRIPTYLINE 50 MG TAB PO SCH (20:44)
--- NOTE | 2020-12-31 21:34 | CR ---
ADVANCED WOUND CARE CONSULTATION DATE: 12/31/2020 REQUESTING PHYSICIAN: Dr. Dallas Dudley CONSULTING PHYSICIAN: Dr. Doug Rashid REASON FOR CONSULTATION: Wound care suggestions and treatment for a non-healing right above knee amputation site and a skin fold wound. Wound care telemedicine provides a visual assessment of a wound without the benefit of physical examination. This can assist with establishing a diagnosis and etiology. This allows for an initial treatment plan. As wounds often change, it may be necessary to modify the original care. Our recommendation is periodic wound reassessment to monitor treatment. Failure to comply may result in non healing of the wound, possible complications and/or a poor outcome. The recommendations given will serve as treatment options. As I will not be following this patient, this care plan will require the attending physician to give and sign the orders. Upon discharge and/or transfer, outpatient follow up can be scheduled at our [facility]. HISTORY OF PRESENT ILLNESS: A 65-year-old morbidly obese diabetic female who underwent a right above knee amputation for significant deterioration of an advanced diabetic right foot ulcer, Cruz grade 4. The patient was evaluated by vascular surgery and not deemed a candidate for angioplasty and/or bypass. The patient has not been discharged from the hospital since the procedure and when evaluated via telemedicine, the patient has two separate wounds of concern. One wound involves the medial aspect of her above knee amputation suture line. The corner edge has dehisced and shows areas of ischemic necrosis. There is a tunnel at the 9 o'clock position from this wound tracking laterally. A small sinus tract opening involving the skin has been identified and is draining purulent material. There is no significant erythema involving the periwound. There is no exposed bone or fascia seen at the base of the primary wound dehiscence Treatment for a non-healing area of an above knee amputation site is debridement, removing devitalized tissue and necrotic underlying tissue. The sinus tract should be opened converting the tunnel or sinus track into an open ditch. Initially this will enlarge the wound but is the appropriate treatment as it will not close if left untreated. Alternatively, once the wound is entirely opened and debrided a wound VAC could be tried utilizing using black foam importantly it should be run at a low suction level of 75 mmHg to be changed on a Monday, Monday, Monday basis. Opening of the sinus tract can be done at bedside utilizing local anesthesia, a groove director and a #15 scalpel blade. The patient additionally has a wound in the right medial thigh representing a deep skin fold within a morbidly obese thigh which has deteriorated, producing a wound of 1.0 cm vertically and 18.0 cm horizontally. Fifty percent of this wound has epithelialized, however in the central portion there are areas of non-healing with a depth of 0.9 cm. Again, the treatment is debridement, converting a tunnel into a ditch. This will allow for the Hydrofera Blue rope to be utilized appropriately. The patient has a normal white count and is afebrile and no antibiotic is indicated as the foam is medicated and will address gram positive and gram negative bacteria. Case discussed via phone in detail with Dr. Dudley. Note when above-knee amputations do not heal it is important to ensure that there is not significant aortoiliac occlusive disease which is contributing to the nonhealing. This can be evaluated with a CT angio evaluating distal aorta and bilateral runoff. DEVENDRA
[2021-01-01 04:59] VITALS: BP 136/65
[2021-01-01] MEDS: traMADol 50 MG TAB PO PRN ×2 (05:09→20:49)
[2021-01-01 06:21] LABS: BASO # 0.1 10^3/uL (0.0-0.2); EOS # 1.2 10^3/uL (0.0-0.5); EOS % 14.8 % (0.0-3.0); HEMATOCRIT 26.3 % (36.0-47.0); HEMOGLOBIN 8.2 g/dl (12.0-15.5); LYMPH # 2.8 10^3/uL (1.5-5.0); LYMPH % 34.1 % (24.0-44.0); MEAN CORPUSCULAR HEMOGLOBIN 27.5 pg (27.0-33.0); MEAN CORPUSCULAR HGB CONC 31.2 g/dl (32.0-36.5); MEAN CORPUSCULAR VOLUME 88.3 fl (80.0-96.0); MONO # 0.9 10^3/uL (0.0-0.8); MONO % 10.8 % (2.0-8.0); NEUTROPHILS # 3.2 10^3/uL (1.5-8.5); NEUTROPHILS % 39.1 % (36.0-66.0); PLATELET COUNT, AUTOMATED 345 10^3/uL (150-450); RED BLOOD COUNT 2.98 10^6/uL (4.00-5.40); WHITE BLOOD COUNT 8.1 10^3/uL (4.0-10.0)
[2021-01-01 06:49] LABS: BLOOD UREA NITROGEN 16 MG/DL (7-18); CALCIUM LEVEL 8.7 MG/DL (8.8-10.2); CARBON DIOXIDE LEVEL 31 MEQ/L (21-32); CHLORIDE LEVEL 101 MEQ/L (98-107); CREATININE FOR GFR 0.77 MG/DL (0.55-1.30); GLOMERULAR FILTRATION RATE > 60.0 (>45); GLUCOSE, FASTING 134 MG/DL (70-100); MAGNESIUM LEVEL 1.5 MG/DL (1.8-2.4); POTASSIUM SERUM 4.1 MEQ/L (3.5-5.1); SODIUM LEVEL 137 MEQ/L (136-145)
[2021-01-01] MEDS: MIRALAX *UNIT DOSE* 17GM PACKET PO SCH (07:36)
[2021-01-01] MEDS: BISACODYL 10 MG SUPP PR SCH ×2 (07:37→20:48)
[2021-01-01] MEDS: SENOKOT S TAB PO SCH ×2 (07:37→20:47)
[2021-01-01] MEDS: ASCORBIC ACID 500 MG TAB PO SCH (08:09)
[2021-01-01] MEDS: ATORVASTATIN 20 MG TAB PO SCH (08:09)
[2021-01-01] MEDS: MAGNESIUM OXIDE 400MG TAB (MAG-OX) PO SCH ×3 (08:09→20:49)
[2021-01-01] MEDS: PANTOPRAZOLE 40MG TAB (PROTONIX) PO SCH (08:09)
[2021-01-01] MEDS: FEBUXOSTAT 40 MG TABLET (ULORIC) PO SCH (08:09)
[2021-01-01] MEDS: HumaLOG INSULIN (NovoLOG) PER UNIT SC SCH ×4 (08:10→20:47)
[2021-01-01] MEDS: BUMETANIDE 1 MG TAB PO SCH (08:10)
[2021-01-01] MEDS: ASPIRIN 81MG ENTERIC TABLET PO SCH (08:10)
[2021-01-01] MEDS: ACETAMINOPHEN TAB 650MG DOSE (2X325MG) PO SCH ×3 (08:11→20:48)
[2021-01-01] MEDS: CARVedilol 12.5 MG TAB PO SCH ×2 (08:11→20:50)
--- NOTE | 2021-01-01 11:01 | CR.PDOC ---
Plastic Surgery Consultation Date of Consultation 01/01/21 History and Physical CONSULT REPORT FOR: Medical service REASON FOR CONSULTATION: Right stump draining wound. HISTORY OF PRESENT ILLNESS: A 65-year-old morbidly obese diabetic female who underwent a right above knee amputation for significant deterioration of an advanced diabetic right foot ulcer, Cruz grade 4. The patient has not been discharged from the hospital since the procedure. Patient has been evaluated by wound care via telemedicine and now is recommended for us to see patient for further treatment. She has draining wound at the medial corner of her AKA incision site with yellow clear drainage as well as medial part of the upper thigh horizontally oriented wound. Patient states she has no pain in that area. PAST MEDICAL HISTORY: Diabetes,A. fib with AICD defibrillator, hypertension, peripheral vascular disease. PAST SURGICAL HISTORY: INCLUDES: AICD, right AKA. PREVIOUS ANESTHESIA REACTIONS: Unknown ALLERGIES: Please see below. FAMILY HISTORY: Noncontributory. HOME MEDICATIONS: Please see below. REVIEW OF SYSTEMS: GENERAL: Denies chills, reports weight gain,. HEENT: Denies blurred vision and double vision. Denies ear symptoms. Denies hoarseness. NECK: Denies any neck pain]. CARDIOVASCULAR: Denies chest pain and palpitations. MUSCULOSKELETAL: Denies arthralgias, back pain and thrombophlebitis. SKIN: Denies rash. NEUROLOGIC: Denies headache, stroke and transient ischemic attack. PSYCHIATRIC: Denies anxiety and depression. ENDOCRINE: Diabetes HEMATOLOGY/ONCOLOGY: Denies bleeding or clotting disorder. HEART: Denies any chest pains, palpitations, paroxysmal dyspnea, orthopnea. PULMONARY: Denies chronic cough, dyspnea and wheezing. GASTROINTESTINAL: Denies rectal bleeding, family history of colon cancer, constipation, diarrhea, dysphagia, heartburn and jaundice. GENITOURINARY: Denies dysuria, frequency, hematuria and nocturia. ENDOCRINE: Denies polydipsia, polyphagia, polyuria, heat or cold intolerance. INFECTIOUS: Denies any recent upper respiratory tract infection, UTI, need for use of antibiotics. NUTRITION: Reports good appetite. PHYSICAL EXAMINATION: VITALS SIGNS: Please see below. GENERAL APPEARANCE:Patient seen, laying in bed, awake, alert, and oriented. Comfortable, in no acute distress. Patient is able to communicate her needs even though her primary language is [place]ian. SKIN: Warm and moist. HEENT: Normocephalic, atraumatic. [place] palpebral conjunctiva, anicteric sclerae. Lips and mucosa appear moist. NECK: Supple, no thyromegaly. No obvious jugular venous distention. LUNGS: Clear to auscultation bilaterally. No wheezing appreciated. HEART: No chest wall abnormalities. Regular rate and rhythm with no murmurs appreciated. ABDOMEN: Abdomen is soft, non-tender, non-distended. EXTREMITIES: Right AKA. Medial part of the incision with puncture wound and corner of the incision with scab 2 x 1 cm which spontaneously opened and tunneling through to the small puncture wound. Liquefied fat necrosis is pre sent in the wound. Superior part of the thigh with longitudinal wound clean granulating tissue 15 x 2 cm 0.5 cm depth. LABORATORY DATA: Please see below. IMPRESSION: Dehiscence of amputation site. PLANS: Liquefied fat necrosis does not appear to be purulent however cultures are taking to rule out infection. Recommend Hydrofera Blue rope daily dressing changes. Patient may need revision of amputation site versus allowing it to heal by secondary intention. We will reassess how fat necrosis is evacuated with Hydrofera Blue initially. Superior part of the thigh open wound is clean. Apply Silvadene dressings twice a day. We will reevaluate the patient in the next 3 to 4 days All findings are discussed with the patient and primary medical team. Vital Signs Vital Signs Date Time Temp Pulse Resp B/P (MAP) Pulse Ox O2 Delivery O2 Flow Rate FiO2 01/01/21 08:14 61 136/65 01/01/21 05:46 16 01/01/21 05:09 Room Air 01/01/21 04:59 98.5 97 I&Os I&O- Last 24 Hours up to 6 AM 01/01/21 06:00 Intake Total 3420 ml Output Total 1550 ml Balance 1870 ml Laboratory Data Labs 24H Laboratory Tests 2 12/31/20 12:45: Bedside Glucose (Misc Panel) 144H 12/31/20 16:32: Bedside Glucose (Misc Panel) 208H 12/31/20 19:37: Bedside Glucose (Misc Panel) 78L 01/01/21 05:13: Immature Granulocyte % (Auto) 0.2, Neutrophils (%) (Auto) 39.1, Lymphocytes (%) (Auto) 34.1, Monocytes (%) (Auto) 10.8H, Eosinophils (%) (Auto) 14.8H, Basophils (%) (Auto) 1.0, Neutrophils # (Auto) 3.2, Lymphocytes # (Auto) 2.8, Monocytes # (Auto) 0.9H, Eosinophils # (Auto) 1.2H, Basophils # (Auto) 0.1, Nucleated Red Blood Cells % (auto) 0.0, Anion Gap 5L, Glomerular Filtration Rate > 60.0, Calcium Level 8.7L, Magnesium Level 1.5L CBC/BMP Laboratory Tests 01/01/21 05:13 Microbiology Microbiology 01/01/21 Gram Stain, Received Pending 01/01/21 Wound Culture, Received Pending Home Medications Scheduled Amitriptyline HCl (Amitriptyline HCl) 50 Mg Tablet, 50 MG PO QHS, (Reported) Amlodipine Besylate (Amlodipine Besylate) 5 Mg Tablet, 2.5 MG PO DAILY, (Reported) Apixaban (Eliquis) 5 Mg Tablet, 5 MG PO BID Ascorbic Acid (Ascorbic Acid) 500 Mg Tablet, 500 MG PO DAILY, (Reported) Aspirin (Aspirin EC) 81 Mg Tablet.dr, 81 MG PO DAILY Atorvastatin Calcium (Atorvastatin Calcium) 80 Mg Tablet, 1 TAB PO DAILY Bumetanide (Bumetanide) 1 Mg Tablet, 1 MG PO DAILY, (Reported) Carvedilol (Carvedilol) 12.5 Mg Tablet, 12.5 MG PO BID, (Reported) Covid-19 Vacc, Mrna(Oncoscope)/Pf (Oncoscope Covid19 Vacc (Unapprov)) 30 Mcg/0.3 Ml Vial, 30 MCG IM ASDIRECTED, (Reported) Digoxin (Digoxin) 250 Mcg Tablet, 250 MCG PO DAILY, (Reported) Febuxostat (Febuxostat) 40 Mg Tablet, 40 MG PO DAILY, (Reported) Gemfibrozil (Lopid) 600 Mg Tablet, 600 MG PO BID, (Reported) Insulin NPH Hum/Reg Insulin Hm (Humulin 70-30 Vial) 100 Unit/1 Ml Vial, 50 UNITS SC DAILY, (Reported) Insulin NPH Hum/Reg Insulin Hm (Humulin 70-30 Vial) 100 Unit/1 Ml Vial, 30 UNITS SC QHS, (Reported) Lisinopril (Lisinopril) 10 Mg Tablet, 10 MG PO DAILY, (Reported) Magnesium Oxide (Magnesium Oxide) 400 Mg Tablet, 400 MG PO Q2D, (Reported) Metformin HCl (Metformin HCl) 500 Mg Tablet, 500 MG PO BIDWM, (Reported) Pantoprazole Sodium (Pantoprazole Sodium) 40 Mg Tablet.dr, 40 MG PO DAILY, (Reported) Sennosides/Docusate Sodium (Senna Plus Tablet) 1 Each Tablet, 2 TAB PO BID Warfarin Sodium (Warfarin Sodium) 3 Mg Tablet, 3 MG PO QHS, (Reported) Scheduled PRN Oxycodone HCl (Oxycodone HCl) 5 Mg Tablet, 5 MG PO Q6HP PRN for MODERATE PAIN (PS 5-7) Polyethylene Glycol 3350 (Miralax) 17 Gm Powd.pack, 1 PKT PO DAILYPRN PRN for CONSTIPATION Allergies Coded Allergies: trimethoprim (Verified Allergy, Mild, 10/28/20) FLORY QUIROS DO Jan 01, 2021 11:01
[2021-01-01] MEDS: SILVER SULFADIAZINE 1% CR 50 GM JAR TOP SCH ×2 (14:00→20:52)
[2021-01-01] MEDS: AMITRIPTYLINE 50 MG TAB PO SCH (20:48)
[2021-01-02 06:00] VITALS: BP 134/66
[2021-01-02] MEDS: CARVedilol 12.5 MG TAB PO SCH ×2 (08:14→21:00)
[2021-01-02] MEDS: BISACODYL 10 MG SUPP PR SCH ×2 (08:14→21:00)
[2021-01-02] MEDS: MIRALAX *UNIT DOSE* 17GM PACKET PO SCH (08:14)
[2021-01-02] MEDS: SILVER SULFADIAZINE 1% CR 50 GM JAR TOP SCH ×2 (08:15→21:19)
[2021-01-02] MEDS: ASCORBIC ACID 500 MG TAB PO SCH (08:16)
[2021-01-02] MEDS: ATORVASTATIN 20 MG TAB PO SCH (08:16)
[2021-01-02] MEDS: HumaLOG INSULIN (NovoLOG) PER UNIT SC SCH ×4 (08:16→21:00)
[2021-01-02] MEDS: ASPIRIN 81MG ENTERIC TABLET PO SCH (08:16)
[2021-01-02] MEDS: FEBUXOSTAT 40 MG TABLET (ULORIC) PO SCH (08:16)
[2021-01-02] MEDS: SENOKOT S TAB PO SCH ×2 (08:16→21:00)
[2021-01-02] MEDS: PANTOPRAZOLE 40MG TAB (PROTONIX) PO SCH (08:17)
[2021-01-02] MEDS: MAGNESIUM OXIDE 400MG TAB (MAG-OX) PO SCH ×3 (08:17→21:19)
[2021-01-02] MEDS: BUMETANIDE 1 MG TAB PO SCH (08:17)
[2021-01-02] MEDS: ACETAMINOPHEN TAB 650MG DOSE (2X325MG) PO SCH ×3 (08:17→21:19)
[2021-01-02 10:14] LABS: BASO # 0.1 10^3/uL (0.0-0.2); BASO % 0.8 % (0.0-1.0); EOS # 1.2 10^3/uL (0.0-0.5); EOS % 15.1 % (0.0-3.0); HEMATOCRIT 26.6 % (36.0-47.0); HEMOGLOBIN 8.2 g/dl (12.0-15.5); LYMPH # 2.3 10^3/uL (1.5-5.0); LYMPH % 29.1 % (24.0-44.0); MEAN CORPUSCULAR HEMOGLOBIN 27.3 pg (27.0-33.0); MEAN CORPUSCULAR HGB CONC 30.8 g/dl (32.0-36.5); MEAN CORPUSCULAR VOLUME 88.7 fl (80.0-96.0); MONO # 0.9 10^3/uL (0.0-0.8); MONO % 10.7 % (2.0-8.0); NEUTROPHILS # 3.5 10^3/uL (1.5-8.5); NEUTROPHILS % 43.9 % (36.0-66.0); PLATELET COUNT, AUTOMATED 348 10^3/uL (150-450)
[2021-01-02 10:55] LABS: BLOOD UREA NITROGEN 18 MG/DL (7-18); CALCIUM LEVEL 8.5 MG/DL (8.8-10.2); CARBON DIOXIDE LEVEL 32 MEQ/L (21-32); CHLORIDE LEVEL 100 MEQ/L (98-107); GLOMERULAR FILTRATION RATE > 60.0 (>45); GLUCOSE, FASTING 184 MG/DL (70-100); MAGNESIUM LEVEL 1.8 MG/DL (1.8-2.4); SODIUM LEVEL 136 MEQ/L (136-145)
[2021-01-02] MEDS: AMITRIPTYLINE 50 MG TAB PO SCH (21:18)
[2021-01-02] MEDS: traMADol 50 MG TAB PO PRN (21:19)
[2021-01-03 06:00] VITALS: BP 143/71
[2021-01-03 06:39] LABS: BASO # 0.1 10^3/uL (0.0-0.2); BASO % 0.6 % (0.0-1.0); EOS # 1.2 10^3/uL (0.0-0.5); EOS % 14.6 % (0.0-3.0); HEMATOCRIT 27.3 % (36.0-47.0); HEMOGLOBIN 8.4 g/dl (12.0-15.5); LYMPH # 2.9 10^3/uL (1.5-5.0); LYMPH % 35.6 % (24.0-44.0); MEAN CORPUSCULAR HEMOGLOBIN 27.5 pg (27.0-33.0); MEAN CORPUSCULAR HGB CONC 30.8 g/dl (32.0-36.5); MEAN CORPUSCULAR VOLUME 89.5 fl (80.0-96.0); MONO # 0.9 10^3/uL (0.0-0.8); MONO % 10.8 % (2.0-8.0); NEUTROPHILS # 3.1 10^3/uL (1.5-8.5); PLATELET COUNT, AUTOMATED 398 10^3/uL (150-450); RED BLOOD COUNT 3.05 10^6/uL (4.00-5.40)
[2021-01-03 07:21] LABS: BLOOD UREA NITROGEN 16 MG/DL (7-18); CALCIUM LEVEL 8.8 MG/DL (8.8-10.2); CARBON DIOXIDE LEVEL 31 MEQ/L (21-32); CHLORIDE LEVEL 99 MEQ/L (98-107); CREATININE FOR GFR 0.82 MG/DL (0.55-1.30); GLOMERULAR FILTRATION RATE > 60.0 (>45); GLUCOSE, FASTING 144 MG/DL (70-100); MAGNESIUM LEVEL 1.9 MG/DL (1.8-2.4); POTASSIUM SERUM 3.9 MEQ/L (3.5-5.1); SODIUM LEVEL 135 MEQ/L (136-145)
[2021-01-03] MEDS: CARVedilol 12.5 MG TAB PO SCH ×2 (08:11→20:10)
[2021-01-03] MEDS: MIRALAX *UNIT DOSE* 17GM PACKET PO SCH (08:11)
[2021-01-03] MEDS: BISACODYL 10 MG SUPP PR SCH ×2 (08:11→20:09)
[2021-01-03] MEDS: HumaLOG INSULIN (NovoLOG) PER UNIT SC SCH ×4 (08:24→20:09)
[2021-01-03] MEDS: ACETAMINOPHEN TAB 650MG DOSE (2X325MG) PO SCH ×3 (08:24→20:09)
[2021-01-03] MEDS: traMADol 50 MG TAB PO PRN ×2 (08:24→16:51)
[2021-01-03] MEDS: ASPIRIN 81MG ENTERIC TABLET PO SCH (08:25)
[2021-01-03] MEDS: FEBUXOSTAT 40 MG TABLET (ULORIC) PO SCH (08:25)
[2021-01-03] MEDS: ATORVASTATIN 20 MG TAB PO SCH (08:25)
[2021-01-03] MEDS: ASCORBIC ACID 500 MG TAB PO SCH (08:25)
[2021-01-03] MEDS: PANTOPRAZOLE 40MG TAB (PROTONIX) PO SCH (08:25)
[2021-01-03] MEDS: MAGNESIUM OXIDE 400MG TAB (MAG-OX) PO SCH ×3 (08:25→20:08)
[2021-01-03] MEDS: SENOKOT S TAB PO SCH ×2 (08:25→20:09)
[2021-01-03] MEDS: BUMETANIDE 1 MG TAB PO SCH (08:26)
[2021-01-03] MEDS: SILVER SULFADIAZINE 1% CR 50 GM JAR TOP SCH ×2 (08:27→20:10)
[2021-01-03] MEDS: AMITRIPTYLINE 50 MG TAB PO SCH (20:08)
[2021-01-04 06:00] VITALS: BP 142/72
[2021-01-04 06:41] LABS: BASO # 0.1 10^3/uL (0.0-0.2); EOS # 1.1 10^3/uL (0.0-0.5); EOS % 15.1 % (0.0-3.0); HEMATOCRIT 27.8 % (36.0-47.0); HEMOGLOBIN 8.6 g/dl (12.0-15.5); LYMPH # 2.6 10^3/uL (1.5-5.0); LYMPH % 36.4 % (24.0-44.0); MEAN CORPUSCULAR HEMOGLOBIN 27.8 pg (27.0-33.0); MEAN CORPUSCULAR HGB CONC 30.9 g/dl (32.0-36.5); MONO # 0.8 10^3/uL (0.0-0.8); MONO % 11.1 % (2.0-8.0); NEUTROPHILS # 2.6 10^3/uL (1.5-8.5); NEUTROPHILS % 36.3 % (36.0-66.0); PLATELET COUNT, AUTOMATED 411 10^3/uL (150-450); RED BLOOD COUNT 3.09 10^6/uL (4.00-5.40); WHITE BLOOD COUNT 7.1 10^3/uL (4.0-10.0)
[2021-01-04 06:59] LABS: BLOOD UREA NITROGEN 14 MG/DL (7-18); CALCIUM LEVEL 8.9 MG/DL (8.8-10.2); CARBON DIOXIDE LEVEL 31 MEQ/L (21-32); CHLORIDE LEVEL 99 MEQ/L (98-107); CREATININE FOR GFR 0.65 MG/DL (0.55-1.30); GLOMERULAR FILTRATION RATE > 60.0 (>45); GLUCOSE, FASTING 137 MG/DL (70-100); MAGNESIUM LEVEL 2.1 MG/DL (1.8-2.4); SODIUM LEVEL 135 MEQ/L (136-145)
[2021-01-04] MEDS: ASCORBIC ACID 500 MG TAB PO SCH (08:18)
[2021-01-04] MEDS: FEBUXOSTAT 40 MG TABLET (ULORIC) PO SCH (08:18)
[2021-01-04] MEDS: BUMETANIDE 1 MG TAB PO SCH (08:19)
[2021-01-04] MEDS: ATORVASTATIN 20 MG TAB PO SCH (08:19)
[2021-01-04] MEDS: ASPIRIN 81MG ENTERIC TABLET PO SCH (08:19)
[2021-01-04] MEDS: CARVedilol 12.5 MG TAB PO SCH ×2 (08:20→20:33)
[2021-01-04] MEDS: ACETAMINOPHEN TAB 650MG DOSE (2X325MG) PO SCH ×3 (08:20→20:38)
[2021-01-04] MEDS: MAGNESIUM OXIDE 400MG TAB (MAG-OX) PO SCH ×2 (08:20→20:38)
[2021-01-04] MEDS: PANTOPRAZOLE 40MG TAB (PROTONIX) PO SCH (08:20)
[2021-01-04] MEDS: SENOKOT S TAB PO SCH ×2 (08:21→20:38)
[2021-01-04] MEDS: MIRALAX *UNIT DOSE* 17GM PACKET PO SCH (08:21)
[2021-01-04] MEDS: BISACODYL 10 MG SUPP PR SCH ×2 (08:21→20:38)
[2021-01-04] MEDS: HumaLOG INSULIN (NovoLOG) PER UNIT SC SCH ×4 (08:22→20:33)
[2021-01-04] MEDS: SILVER SULFADIAZINE 1% CR 50 GM JAR TOP SCH ×2 (08:22→20:38)
[2021-01-04] MEDS: AMITRIPTYLINE 50 MG TAB PO SCH (20:37)
[2021-01-05 06:00] VITALS: BP 143/72
[2021-01-05] MEDS: PANTOPRAZOLE 40MG TAB (PROTONIX) PO SCH (08:02)
[2021-01-05] MEDS: ATORVASTATIN 20 MG TAB PO SCH (08:02)
[2021-01-05] MEDS: ASCORBIC ACID 500 MG TAB PO SCH (08:02)
[2021-01-05] MEDS: CARVedilol 12.5 MG TAB PO SCH ×2 (08:03→20:16)
[2021-01-05] MEDS: FEBUXOSTAT 40 MG TABLET (ULORIC) PO SCH (08:03)
[2021-01-05] MEDS: MAGNESIUM OXIDE 400MG TAB (MAG-OX) PO SCH ×2 (08:04→20:16)
[2021-01-05] MEDS: BUMETANIDE 1 MG TAB PO SCH (08:05)
[2021-01-05] MEDS: ASPIRIN 81MG ENTERIC TABLET PO SCH (08:05)
[2021-01-05] MEDS: HumaLOG INSULIN (NovoLOG) PER UNIT SC SCH ×4 (08:06→20:18)
[2021-01-05] MEDS: ACETAMINOPHEN TAB 650MG DOSE (2X325MG) PO SCH ×3 (08:06→20:17)
[2021-01-05] MEDS: SENOKOT S TAB PO SCH ×2 (08:07→20:15)
[2021-01-05] MEDS: MIRALAX *UNIT DOSE* 17GM PACKET PO SCH (08:07)
[2021-01-05] MEDS: BISACODYL 10 MG SUPP PR SCH ×2 (08:07→20:18)
[2021-01-05] MEDS: SILVER SULFADIAZINE 1% CR 50 GM JAR TOP SCH ×2 (08:08→20:18)
[2021-01-05 09:35] LABS: BASO # 0.1 10^3/uL (0.0-0.2); BASO % 0.7 % (0.0-1.0); EOS # 0.6 10^3/uL (0.0-0.5); EOS % 7.7 % (0.0-3.0); HEMOGLOBIN 8.6 g/dl (12.0-15.5); LYMPH # 2.2 10^3/uL (1.5-5.0); LYMPH % 27.1 % (24.0-44.0); MEAN CORPUSCULAR HEMOGLOBIN 27.2 pg (27.0-33.0); MEAN CORPUSCULAR HGB CONC 30.7 g/dl (32.0-36.5); MEAN CORPUSCULAR VOLUME 88.6 fl (80.0-96.0); MONO # 0.7 10^3/uL (0.0-0.8); MONO % 8.9 % (2.0-8.0); NEUTROPHILS # 4.4 10^3/uL (1.5-8.5); NEUTROPHILS % 55.1 % (36.0-66.0); PLATELET COUNT, AUTOMATED 418 10^3/uL (150-450); RED BLOOD COUNT 3.16 10^6/uL (4.00-5.40)
--- NOTE | 2021-01-05 09:50 | IPNPDOC ---
Text Note Date of Service The patient was seen on 01/05/21. NOTE Subjective: Patient is a 65-year-old female with a PMHx of HTN, CAD, Chronic A. fib, CHF, PVD, DLP, DM2, Gout, Vertigo, GERD who presented to the ER for infected R heel wound. Patient was admitted to the hospitalist service for further evaluation and treatment. Podiatry and ID were called on consultation. Patient's hospital course is complicated. Initially patient had podiatry intervention of her right foot followed by vascular intervention with angioplast y. Patient was on prolonged antibiotics for a osteomyelitis. Her hospital course was complicated with an acute CVA with residual left-sided weakness. Patient had failed to improve with IV antibiotics after surgery was called for further evaluation and patient ultimately underwent a right-sided [id number] amputation. Patient was seen and examined at bedside today. Patient voices no new medical complaints. No new acute overnight events reported. Objective: Vitals (See below) General: NAD, lying comfortably in bed HEENT: NC/AT, EOMI Neck: supple, no masses Chest: lungs CTA B/L Heart: +S1S2 Abd: soft, NT, ND, +BS Extremities: RLE with AKA, and open wound; b/l LE edema Skin: no rashes Psych: AAOx3 Assessment and plan: #Infected RLE heel ulcer with acute osteomyelitis of the calcaneum; in the setting of vascular compromise; s/p R AKA - Wound appears clean without any significant erythema - No leukocytosis - Wound cultures 10/05: Escherichia coli, Morganella morganii, Enterococcus faecalis, MRSA - Wound cultures 10/07: Morganella morganii, Escherichia coli, Enterococcus faecalis - Wound culture 11/14: Pseudomonas aeruginosa - s/p Posterior resection of the right calcaneum on 10/07/[address] Bone - s/p Vascular intervention or R SFA angioplasty on 10/12/[address] Maya - s/p R AKA on 11/21/[address] Venegas - Podiatry, Vascular surgery, Interventional radiology, and infectious disease on consultation - s/p Antibiotic therapy; s/p Levaquin; Completed Zosyn (6 week course) - c/w PT and OT; will likely require rehabilitation moving forward #Right medial thigh recently debrided with area of some drainage noted - Area does not reveal any significant erythema or tenderness - Hemodynamically stable and afebrile - No leukocytosis - s/p Incision necrotic skin and superficial soft right thigh with Dr. Lakhani on 12/25/2020 - c/w dressing changes as per advanced care Dr. Rashid #Sacral Decubitus Ulcer (Stage III) #Acute right MCA stroke with left sided weakness - Patient had code stroke called on 8/10 AM - Imaging noted above; Unable to get MRI 2/2 PM - c/w ASA 81 / Atorvastatin / Eliquis - Neurology consultation appreciated #HFrEF - chronic - compensated - No evidence of decompensation / fluid overload - Patient remains saturating at 96% on room air - s/p AICD / Biventricular pacing - c/w Bumetanide #Dysphagia - c/w Speech therapy recommendations #s/p Troponinemia - likely 2/2 demand ischemia / NSTEMI (Type II) - Troponin has normalized - ECHO Noted above - Serial EKGs have shown no significant change - c/w Carvedilol, ASA 81 #s/p Gram-negative bacteremia - Blood cultures 10/05: (1 of 2) Morganella Morganii - Blood cultures 10/06: Negative at 5 days - s/p Antibiotic therapy #Anemia / Acute blood loss 2/2 bleeding from BKA site - s/p Exploration of the right above-knee amputation stump and control of bleeding on 11/26/[address] Venegas - s/p 6 units PRBC and 2 units FFP - Hg stable #IDDM2 - c/w ISS and Levemir #HTN - BP well controlled - c/w Carvedilol, Bumetanide, Lisinopril, Amlodipine #Chronic Atrial fibrillation - c/w rate control with Carvedilol - c/w Eliquis #DLP - c/w Gemfibrozil #Gout - c/w Febuxostat #CKD3 - Cr at baseline #Neuropathy - c/w Amitriptyline #GI prophylaxis - c/w Protonix #DVT prophylaxis - c/w full anticoagulation with Eliquis Disposition: - c/w ALC status - ID f/u - received 2nd COVID vaccine on 12/30 - able to be placed in 2 weeks as per documentation (01/13) VS,Fishbone, I+O VS, Fishbone, I+O Laboratory Tests 01/05/21 08:34 Vital Signs Date Time Temp Pulse Resp B/P (MAP) Pulse Ox O2 Delivery O2 Flow Rate FiO2 01/05/21 08:05 62 143/72 01/05/21 06:00 98.4 19 100 Room Air I&O- Last 24 Hours up to 6 AM 01/05/21 06:00 Intake Total 1450 ml Output Total 2850 ml Balance -1400 ml AMY BRADY MD Jan 05, 2021 09:50
[2021-01-05 09:55] LABS: BLOOD UREA NITROGEN 17 MG/DL (7-18); CALCIUM LEVEL 9.1 MG/DL (8.8-10.2); CARBON DIOXIDE LEVEL 29 MEQ/L (21-32); CHLORIDE LEVEL 97 MEQ/L (98-107); CREATININE FOR GFR 0.59 MG/DL (0.55-1.30); GLOMERULAR FILTRATION RATE > 60.0 (>45); GLUCOSE, FASTING 200 MG/DL (70-100); POTASSIUM SERUM 4.1 MEQ/L (3.5-5.1); SODIUM LEVEL 134 MEQ/L (136-145)
--- NOTE | 2021-01-05 16:12 | IPNPDOC ---
Subjective General Date Seen: Jan 05, 2021 Subject Chief Complaint/History The patient is a 65-year-old female admitted with a reason for visit of R Diabetic Heel Ulcer. Patient seen and examined. The right stump wound is improving. Grew (+) cultures. No fever, chills. Current Medications Current Medications Current Medications Medications (Trade) Dose Ordered Sig/Mikey Route PRN Reason Start Time Stop Time Status Last Admin Dose Admin Acetaminophen (Tylenol Tab) 650 mg Q4H PRN PO MILD PAIN or TEMP > 101 10/05/20 12:55 12/13/20 10:23 DC 12/11/20 08:10 Acetaminophen (Tylenol Tab) 650 mg TID PO 12/13/20 09:00 01/05/21 08:06 Amitriptyline HCl (Elavil) 50 mg QHS PO 10/05/20 21:00 01/04/21 20:37 Amlodipine Besylate (Norvasc) 2.5 mg DAILY PO 10/28/20 09:00 01/05/21 08:05 Apixaban (Eliquis) 5 mg BID PO 11/25/20 21:00 Cancel Apixaban (Eliquis) 5 mg BID PO 11/29/20 09:00 12/26/20 19:51 DC 12/26/20 08:39 Ascorbic Acid (Vitamin C) 500 mg DAILY PO 10/06/20 09:00 01/05/21 08:02 Aspirin (Aspirin) 300 mg DAILY OR 10/20/20 14:00 10/21/20 14:17 DC 10/20/20 13:49 Aspirin (Ecotrin) 81 mg DAILY PO 10/20/20 11:15 10/20/20 12:32 DC Aspirin (Ecotrin) 81 mg DAILY PO 10/21/20 09:00 01/05/21 08:05 Atorvastatin Calcium (Lipitor) 80 mg DAILY PO 11/03/20 15:00 01/05/21 08:02 Bisacodyl (Dulcolax Suppository) 10 mg BID OR 12/20/20 21:00 12/20/20 21:03 Bumetanide (Bumex) 1 mg DAILY PO 10/26/20 09:00 01/05/21 08:05 Carvedilol (COReg) 12.5 mg BID PO 10/05/20 21:00 10/20/20 08:44 DC 10/19/20 21:30 Carvedilol (COReg) 12.5 mg BID PO 10/25/20 09:00 01/05/21 08:03 Cefazolin Sodium 1 gm/Dextrose 50 ml @ 100 mls/hr Q8H IV 11/26/20 17:00 11/27/20 09:29 DC 11/27/20 09:00 Cefazolin Sodium 1 gm/Dextrose 50 ml @ 100 mls/hr Q8H IV 11/26/20 17:30 11/27/20 09:59 DC 11/27/20 09:30 Cefazolin Sodium/ Dextrose 2 gm/IV Miscellaneous Supplies 50 ml @ 75 mls/hr Q8H IV 11/26/20 11:55 11/26/20 12:17 DC Dextrose (Dextrose 50%) 25 ml ASDIRECTED PRN IV SEE LABEL COMMENTS 10/05/20 12:55 10/20/20 02:59 Digoxin (Lanoxin) 0.25 mg DAILY PO 10/06/20 09:00 10/09/20 08:27 DC 10/08/20 08:12 Diphenhydramine HCl (Benadryl Cream) 1 dose Q4HP PRN TOP ITCHING 12/07/20 12:55 12/07/20 13:08 DC Diphenhydramine HCl (Benadryl Cream) to affected pruri... BID TOP 12/09/20 09:00 12/12/20 08:59 DC 12/11/20 20:57 Doxycycline Hyclate (Vibramycin) 100 mg BID PO 01/05/21 21:00 Enoxaparin Sodium (Lovenox) 30 mg DAILY SC 11/27/20 09:00 11/29/20 08:00 DC 11/28/20 08:40 Enoxaparin Sodium (Lovenox) 40 mg DAILY SC 10/10/20 09:00 10/14/20 07:39 DC 10/13/20 08:41 Enoxaparin Sodium (Lovenox) 70 mg Q12H SC 11/20/20 09:00 11/21/20 05:16 DC 11/20/20 21:10 Enoxaparin Sodium (Lovenox) 70 mg Q12H SC 11/22/20 09:00 11/24/20 17:29 DC 11/24/20 09:49 Ertapenem 1 gm/ Sodium Chloride 50 ml @ 100 mls/hr Q24H IV 01/05/21 17:00 Febuxostat (Uloric) 40 mg DAILY PO 10/06/20 09:00 01/05/21 08:03 Fentanyl Citrate (Sublimaze) 25 mcg Q5MP PRN IV PAIN LEVEL 5-10 10/07/20 19:25 10/07/20 21:25 DC Fentanyl Citrate (Sublimaze) 25 mcg Q5MP PRN IV PAIN LEVEL 8-10 11/21/20 11:25 11/21/20 13:25 DC Fentanyl Citrate (Sublimaze) 25 mcg Q5MP PRN IV PAIN LEVEL 8-10 11/26/20 12:40 11/26/20 14:40 DC 11/26/20 12:34 Fluconazole (Diflucan) 150 mg DAILY PO 11/23/20 16:45 11/29/20 09:01 DC 11/29/20 08:34 Gabapentin (Neurontin) 100 mg BID PO 11/25/20 09:00 11/25/20 12:18 DC 11/25/20 10:02 Gabapentin (Neurontin) 100 mg BID PO 11/17/20 09:00 11/18/20 17:15 DC 11/18/20 08:58 Gemfibrozil (Lopid) 600 mg BID PO 10/05/20 21:00 11/03/20 14:53 DC 11/03/20 08:57 Glucagon (Glucagon) 1 mg ASDIRECTED PRN SC SEE LABEL COMMENTS 10/05/20 12:55 Glucose (Glucose) 16 GM ASDIRECTED PRN PO SEE LABEL COMMENTS 10/05/20 12:55 Heparin Sodium (Heparin (Flush)) 200 units ASDIRECTED PRN IV SEE LABEL COMMENTS 10/09/20 18:25 12/18/20 15:02 DC 12/03/20 17:41 Heparin Sodium (Heparin (Flush)) 200 units PICC IV 10/10/20 06:00 12/18/20 15:02 DC 12/18/20 05:08 Home Med (Med Rec Complete!) ASDIRECTED XX 10/05/20 14:35 10/05/20 14:34 DC Hydromorphone HCl (Dilaudid) 0.2 mg Q5MP PRN IV PAIN LEVEL 4-7 10/07/20 19:25 10/07/20 21:25 DC Hydroxyzine HCl (Atarax) 10 mg Q6HP PRN PO itchy 12/07/20 13:05 12/07/20 16:32 DC 12/07/20 15:23 Hydroxyzine HCl (Atarax) 25 mg Q6H PO 12/09/20 12:00 12/16/20 10:35 DC 12/15/20 17:10 Hydroxyzine HCl (Atarax) 25 mg Q6HP PRN PO itchy 12/07/20 16:30 12/09/20 09:03 DC 12/08/20 13:08 Ibuprofen (Advil) 400 mg BIDP PRN PO MILD PAIN (PS 1-4) 11/01/20 13:40 11/25/20 18:54 DC 11/22/20 20:39 Insulin Human Isoph/Insulin Regular (HumuLIN 70/30 INSULIN) 20 units BID@0730,1730 [place] 10/06/20 17:30 10/20/20 15:31 DC 10/19/20 16:55 Insulin Human Isoph/Insulin Regular (HumuLIN 70/30 INSULIN) 30 units QFOX [facility] 10/05/20 21:00 10/06/20 10:23 DC Insulin Human Isoph/Insulin Regular (HumuLIN 70/30 INSULIN) 50 units DAILY [place] 10/06/20 09:00 10/06/20 10:23 DC Insulin Human Lispro (HumaLOG INSULIN) SEE PROTOCOL TABLE AC [place] 10/22/20 07:30 01/05/21 12:36 Insulin Human Lispro (HumaLOG INSULIN) SEE PROTOCOL TABLE QHS [place] 10/22/20 21:00 12/11/20 20:53 Insulin Human Lispro (HumaLOG INSULIN) See Protocol Table AC [place] 10/05/20 17:30 10/10/20 08:10 DC 10/09/20 18:59 Insulin Human Lispro (HumaLOG INSULIN) See Protocol Table QFOX [facility] 10/05/20 21:00 10/10/20 08:10 DC Lactated Ringer's 1,000 ml @ 100 mls/hr Q10H IV 11/21/20 11:25 11/21/20 13:25 DC Lactated Ringer's 1,000 ml @ 100 mls/hr Q10H IV 11/26/20 12:40 11/26/20 14:40 DC Levofloxacin (Levaquin) 500 mg DAILY@06 PO 11/14/20 06:00 11/21/20 13:26 DC 11/21/20 05:47 Lidocaine HCl (Lidocaine 2% Urojet) APPLY TO CATHETER TIP ASDIRECTED PRN TOP FOR EACH CATHETERIZATION 11/20/20 22:10 12/18/20 17:34 DC 11/20/20 22:58 Linezolid (Zyvox) 600 mg BID PO 11/13/20 21:00 11/17/20 15:33 DC 11/17/20 08:35 Lisinopril (Prinivil) 2.5 mg DAILY PO 10/16/20 09:00 10/22/20 13:55 DC 10/21/20 14:28 Lisinopril (Prinivil) 10 mg DAILY PO 10/27/20 09:00 01/05/21 08:03 Magnesium Hydroxide (Milk Of Magnesia) 30 ml DAILY PRN PO CONSTIPATION 10/05/20 12:55 12/12/20 17:28 Magnesium Oxide (Mag-Ox) 400 mg DAILY PO 12/30/20 09:00 12/31/20 10:00 DC 12/31/20 08:00 Magnesium Oxide (Mag-Ox) 400 mg Q2D PO 10/07/20 09:00 12/30/20 07:41 DC 12/28/20 08:35 Magnesium Oxide (Mag-Ox) 800 mg BID PO 12/31/20 21:00 01/01/21 14:47 DC 01/01/21 08:09 Magnesium Oxide (Mag-Ox) 800 mg BID PO 01/04/21 21:00 01/05/21 08:04 Magnesium Oxide (Mag-Ox) 800 mg TID PO 01/01/21 16:00 01/04/21 11:51 DC 01/04/21 08:20 Magnesium Sulfate/ Dextrose 1 gm/IV Miscellaneous Supplies 100 ml @ 100 mls/hr Q1H IV 12/31/20 09:00 12/31/20 09:59 DC Menthol/Methyl Salicylate (Bengay Cream) APPLY TO AFFECTED AREA... QID TOP 12/10/20 13:00 12/15/20 09:01 DC 12/15/20 08:42 Metoclopramide HCl (REGLAN INJection) 10 mg Q6HP PRN IV NAUSEA OR VOMITING 11/26/20 12:40 11/26/20 14:40 DC Miscellaneous (Unresolved Clarification Entry) SEE LABEL COMMENTS DAILY XX 11/15/20 09:00 11/15/20 14:49 DC 11/15/20 09:00 Morphine Sulfate (Morphine Sulfate Inj) 1 mg Q4H PRN IV MODERATE PAIN (PS 5-7) 10/20/20 14:30 10/26/20 11:20 DC Morphine Sulfate (Morphine Sulfate Inj) 2 mg Q4H PRN IV SEVERE PAIN (PS 8-10) 11/21/20 11:15 12/13/20 10:23 DC 12/03/20 08:18 Morphine Sulfate (Morphine Sulfate Inj) 3 mg Q3HP PRN IV SEVERE PAIN (PS 8-10) 12/13/20 10:25 12/18/20 17:36 DC Non-Formulary Medication ( See Comment Field Below ) VANCO INTERMIT. DOSING ASDIRECTED XX 10/05/20 15:30 10/06/20 08:36 DC Nystatin (Mycostatin Powder, Nystop) Apply 1 dose to under ... BID TOP 12/05/20 13:00 12/20/20 08:30 DC 12/18/20 22:26 Nystatin (Mycostatin Powder, Nystop) Apply 1 dose to under ... BID PRN TOP rash 12/20/20 08:30 12/22/20 12:23 Nystatin (Mycostatin Powder, Nystop) under abdominal folds/breasts BID TOP 11/15/20 21:00 11/23/20 16:45 DC 11/23/20 10:23 Ondansetron HCl (ZOFRAN INJection) 4 mg Q4HP PRN IV NAUSEA OR VOMITING 10/07/20 19:25 10/07/20 21:25 DC Ondansetron HCl (ZOFRAN INJection) 4 mg Q4HP PRN IV NAUSEA OR VOMITING 11/21/20 11:25 11/21/20 13:25 DC Ondansetron HCl (ZOFRAN INJection) 4 mg Q4HP PRN IV NAUSEA OR VOMITING 11/26/20 12:40 11/26/20 14:40 DC Oxycodone HCl (Roxicodone, Oxyir) 5 mg ASDIRECTED PRN PO PAIN LEVEL 1-4 11/21/20 11:25 11/21/20 13:25 DC 11/21/20 11:33 Oxycodone HCl (Roxicodone, Oxyir) 5 mg Q6HP PRN PO MODERATE PAIN (PS 5-7) 11/21/20 11:15 12/07/20 16:32 DC 12/07/20 12:49 Oxycodone/ Acetaminophen (Percocet 5mg/ 325mg Tablet) 1 tab Q6HP PRN PO MODERATE/SEVERE PAIN (PS 5-10) 10/07/20 20:05 10/12/20 14:47 DC 10/08/20 04:25 Oxycodone/ Acetaminophen (Percocet 5mg/ 325mg Tablet) 2 tab Q6HP PRN PO SEVERE PAIN (PS 8-10) 10/07/20 20:05 10/11/20 08:59 DC Pantoprazole Sodium (Protonix) 40 mg DAILY PO 10/06/20 09:00 01/05/21 08:02 Piperacillin Sod/ Tazobactam Sod 2.25 gm/Dextrose 50 ml @ 100 mls/hr Q6H IV 10/06/20 10:00 10/08/20 09:46 DC 10/08/20 04:24 Piperacillin Sod/ Tazobactam Sod 3.375 gm/Dextrose 50 ml @ 50 mls/hr Q6H IV 10/05/20 16:00 10/06/20 09:04 DC 10/06/20 04:16 Piperacillin Sod/ Tazobactam Sod 3.375 gm/Dextrose 50 ml @ 50 mls/hr Q6H IV 10/08/20 10:00 11/13/20 16:13 DC 11/13/20 10:03 Polyethylene Glycol (Miralax) 1 pkt DAILY PO 12/19/20 09:00 12/23/20 08:05 Polyethylene Glycol (Miralax) 1 pkt DAILYPRN PRN PO CONSTIPATION 10/14/20 00:30 12/19/20 10:16 DC 12/18/20 12:49 Potassium Chloride 10 meq/ IV Miscellaneous Supplies 100 ml @ 100 mls/hr Q1H IV 11/13/20 08:00 9/3/21 09:59 DC 11/13/20 08:48 Prednisone (Deltasone) 10 mg Taper DAILY PO 12/09/20 09:00 12/15/20 08:59 DC 12/14/20 08:34 Psyllium Hydrophilic Mucilloid (Metamucil) 1 pkt DAILY PO 10/31/20 09:00 11/13/20 16:13 DC 11/08/20 09:44 Senna/Docusate Sodium (Senokot S) 1 tab BID PO 10/29/20 09:00 10/31/20 10:01 DC 10/31/20 09:38 Senna/Docusate Sodium (Senokot S) 2 tab BID PO 10/31/20 21:00 01/03/21 08:25 Silver Sulfadiazine (Silvadene 1%) apply to the right med... BID TOP 01/01/21 13:00 01/05/21 08:08 Sodium Biphosphate/ Sodium Phosphate (Fleet Enema) 1 ea DAILYPRN PRN OR CONSTIPATION 10/31/20 10:00 12/20/20 13:39 Sodium Chloride 1,000 ml @ 50 mls/hr Q20H IV 11/26/20 12:30 11/27/20 20:16 DC 11/26/20 15:07 Sodium Chloride 1,000 ml @ 80 mls/hr [id number] IV 10/20/20 10:00 10/22/20 08:53 DC 10/21/20 18:23 Sodium Chloride 1,000 ml @ 120 mls/hr Q8H20M IV 10/22/20 09:00 10/23/20 09:27 DC 10/22/20 09:11 Sodium Chloride (Saline Lock Flush) 10 ml ASDIRECTED PRN IV SEE LABEL COMMENTS 10/09/20 18:25 12/18/20 15:02 DC 12/03/20 17:41 Sodium Chloride (Saline Lock Flush) 10 ml PICC IV 10/10/20 06:00 12/18/20 15:02 DC 12/18/20 05:08 Tramadol HCl (Ultram) 50 mg Q4HP PRN PO pain3-/10scale 12/13/20 10:25 01/03/21 16:51 Tramadol HCl (Ultram) 50 mg Q6HP PRN PO MODERATE PAIN (PS 5-7) 12/07/20 16:30 12/13/20 10:23 DC 12/12/20 20:31 Vancomycin HCl 1000 mg/IV Miscellaneous Supplies 1 each/ Sodium Chloride 270 ml @ 270 mls/hr Q24H IV 10/06/20 11:00 10/12/20 15:49 DC 10/12/20 12:55 Warfarin Sodium (Coumadin) 2 mg DAILY@17 PO 10/30/20 17:00 11/19/20 13:57 DC 11/15/20 17:52 Allergies Coded Allergies: trimethoprim (Verified Allergy, Mild, 10/28/20) Objective Physical Examination Examination GENERAL APPEARANCE:Patient seen, laying in bed, awake, alert, and oriented. Comfortable, in no acute distress. SKIN: Warm and moist. Right AKA: Upper wound 24t1d0yr with clean granulating tissue, yellow necrosis minimal. Stump with open wound with 2x1cm and tunneling 6 cm medially. Minimal clear drainage. No odor. No redness. LUNGS: Clear to auscultation bilaterally. No wheezing appreciated. HEART: No chest wall abnormalities. Regular rate and rhythm with no murmurs appreciated. ABDOMEN: Abdomen is soft, non-tender, non-distended. EXTREMITIES: No edema identified. No calf tenderness. Vital Signs Vital Signs Date Time Temp Pulse Resp B/P (MAP) Pulse Ox O2 Delivery O2 Flow Rate FiO2 01/05/21 08:05 62 143/72 01/05/21 06:00 98.4 19 100 Room Air I&Os I&O- Last 24 Hours up to 6 AM 01/05/21 05:59 Intake Total 1650 ml Output Total 2650 ml Balance -1000 ml Laboratory Data Labs 24H Laboratory Tests 2 01/04/21 16:42: Bedside Glucose (Misc Panel) 142H 01/04/21 20:12: Bedside Glucose (Misc Panel) 127H 01/05/21 07:03: Bedside Glucose (Misc Panel) 136H 01/05/21 08:34: Immature Granulocyte % (Auto) 0.5, Neutrophils (%) (Auto) 55.1, Lymphocytes (%) (Auto) 27.1, Monocytes (%) (Auto) 8.9H, Eosinophils (%) (Auto) 7.7H, Basophils (%) (Auto) 0.7, Neutrophils # (Auto) 4.4, Lymphocytes # (Auto) 2.2, Monocytes # (Auto) 0.7, Eosinophils # (Auto) 0.6H, Basophils # (Auto) 0.1, Nucleated Red Blood Cells % (auto) 0.0, Anion Gap 8, Glomerular Filtration Rate > 60.0, Calcium Level 9.1, Magnesium Level 2.0 01/05/21 11:38: Bedside Glucose (Misc Panel) 138H CBC/BMP Laboratory Tests 01/05/21 08:34 Microbiology Microbiology 01/01/21 Gram Stain - Final, Complete 01/01/21 Wound Culture - Final, Complete Klebsiella Pneumoniae Esbl Staphylococcus Sp Coag Neg Impression Dehiscence of right AKA stump. Horizontal Pressure wound upper thigh, stage 3. Continue with Hydrofera packing of the stump wound, daily. ID reconsulted on positive cultures. Continue with Silvadene cream bid to upper thigh pressure wound, improving. Will continue to monitor. Plan / VTE VTE Prophylaxis Ordered?: Yes FLORY QUIROS DO Jan 05, 2021 16:12
[2021-01-05] MEDS: ERTAPENEM SODIUM 1 GM in NS MINI-BAG PLUS 50 ML IV SCH (17:30)
[2021-01-05] MEDS: DOXYCYCLINE HYCLATE 100MG TABLET PO SCH (20:16)
[2021-01-05] MEDS: AMITRIPTYLINE 50 MG TAB PO SCH (20:16)
[2021-01-06 06:20] VITALS: BP 155/78
[2021-01-06] MEDS: MAGNESIUM OXIDE 400MG TAB (MAG-OX) PO SCH ×2 (08:05→20:24)
[2021-01-06] MEDS: DOXYCYCLINE HYCLATE 100MG TABLET PO SCH ×2 (08:06→20:24)
[2021-01-06] MEDS: PANTOPRAZOLE 40MG TAB (PROTONIX) PO SCH (08:06)
[2021-01-06] MEDS: ASCORBIC ACID 500 MG TAB PO SCH (08:06)
[2021-01-06] MEDS: ACETAMINOPHEN TAB 650MG DOSE (2X325MG) PO SCH ×3 (08:06→20:24)
[2021-01-06] MEDS: CARVedilol 12.5 MG TAB PO SCH ×2 (08:07→20:30)
[2021-01-06] MEDS: SENOKOT S TAB PO SCH ×2 (08:07→20:24)
[2021-01-06] MEDS: FEBUXOSTAT 40 MG TABLET (ULORIC) PO SCH (08:08)
[2021-01-06] MEDS: ASPIRIN 81MG ENTERIC TABLET PO SCH (08:08)
[2021-01-06] MEDS: BUMETANIDE 1 MG TAB PO SCH (08:08)
[2021-01-06] MEDS: ATORVASTATIN 20 MG TAB PO SCH (08:09)
[2021-01-06] MEDS: HumaLOG INSULIN (NovoLOG) PER UNIT SC SCH ×4 (08:10→21:00)
[2021-01-06] MEDS: SILVER SULFADIAZINE 1% CR 50 GM JAR TOP SCH ×2 (09:00→20:28)
--- NOTE | 2021-01-06 13:44 | IPN ---
PROGRESS NOTE DATE: 01/05/2021 SUBJECTIVE: I was asked by Dr. Martin to re-evaluate Wild Carvajal for a right stump infection. The patient had an above-knee amputation done in November and she had done well with wound healing until recently, she was noted to have an eschar on the medial aspect of the stump and slight wound dehiscence with serosanguinous discharge. She was evaluated by Dr. Martin and the wound culture was sent, which was positive for ESBL Klebsiella and Staphylococcus coagulase negative. She had some yellow discharge from the medial aspect of the wound and minimal serous discharge from the lateral aspect of the wound. She also had a long ulcer at the upper aspect of the thigh about 10 cm above the amputation site, which was felt to be caused by the tourniquet during surgery. The wound is not infected. It measures about 1 cm in width and about 15 cm in length. The patient denies any fever or chills. She has no pain, no nausea, vomiting or diarrhea. She has been refusing her laxative. Her past medical history is significant for diabetes, atrial fibrillation, automatic implantable cardioverter defibrillator (AICD) defibrillator, hypertension, peripheral vascular disease, status post intervention of the right leg with superior femoral artery intervention done by Dr. Maya, Acute osteomyelitis of the right calcaneus status post six weeks of IV Zosyn without any improvement that finally required above-knee amputation on 11/22. Stroke with left residual hemiparesis, urinary retention. PHYSICAL EXAMINATION: She is a pleasant female in no acute distress. Vital signs: Temperature is 98.4, pulse 62, respirations 19, blood pressure 143/72, O2 saturation 100% on room air. Heart: Normal S1, S2. No murmurs, rubs or gallops. Lungs are clear. No wheezes, rales or rhonchi. Abdomen: Obese, soft, nontender. Extremities: Right above-knee amputation with open wound measuring about 2 x 3 cm with mild drainage, yellowish in color. The wound probes at least 6 cm laterally. There is another area of dehiscence of the wound with serosanguinous drainage laterally. Above the incision site, there is a large fresh ulcer horizontally across the thigh about 15 cm by 1 cm with no drainage. LABORATORY DATA: Sodium 134, potassium 4.1, chloride 97, bicarbonate 29, BUN 17, creatinine 0.59, glucose 200, calcium 9.1, magnesium 2, white count 8, hemoglobin 8.6, hematocrit 28, platelets 418, 55% neutrophils, 27% lymphocytes, 9% monocytes. Wound culture had ESBL Klebsiella sensitivity to Invanz, meropenem, Zosyn, tetracycline and Bactrim, but patient is allergic to sulfa and Staphylococcus coag negative, sensitive to daptomycin, vancomycin, doxycycline. IMPRESSION: Wound dehiscence with surgical site infection at above- knee amputation site with extended spectrum beta-lactamase (ESBL) Klebsiella. The patient will be treated with 7 days IV Invanz and by mouth doxycycline. A peripheral IV will be placed. The patient will continue with dressing changes daily and wound care per Dr. Martin. Will repeat complete blood count (CBC), erythrocyte sedimentation rate (ESR), C-reactive protein (CRP) on . PLAN: The patient will be started with a peripheral IV and started on IV antibiotics as ordered.
[2021-01-06] MEDS: MIRALAX *UNIT DOSE* 17GM PACKET PO PRN (17:34)
[2021-01-06] MEDS: ERTAPENEM SODIUM 1 GM in NS MINI-BAG PLUS 50 ML IV SCH (17:35)
[2021-01-06 20:21] VITALS: BP 150/71
[2021-01-06] MEDS: AMITRIPTYLINE 50 MG TAB PO SCH (20:24)
[2021-01-07] MEDS: traMADol 50 MG TAB PO PRN ×3 (04:29→21:54)
[2021-01-07 06:35] VITALS: BP 157/84
[2021-01-07] MEDS: HumaLOG INSULIN (NovoLOG) PER UNIT SC SCH ×4 (07:30→21:00)
[2021-01-07 09:00] VITALS: BP 156/75
[2021-01-07] MEDS: ATORVASTATIN 20 MG TAB PO SCH (09:52)
[2021-01-07] MEDS: FEBUXOSTAT 40 MG TABLET (ULORIC) PO SCH (09:52)
[2021-01-07] MEDS: ACETAMINOPHEN TAB 650MG DOSE (2X325MG) PO SCH ×3 (09:52→21:55)
[2021-01-07] MEDS: DOXYCYCLINE HYCLATE 100MG TABLET PO SCH ×2 (09:53→21:55)
[2021-01-07] MEDS: BUMETANIDE 1 MG TAB PO SCH (09:53)
[2021-01-07] MEDS: PANTOPRAZOLE 40MG TAB (PROTONIX) PO SCH (09:53)
[2021-01-07] MEDS: ASPIRIN 81MG ENTERIC TABLET PO SCH (09:53)
[2021-01-07] MEDS: MAGNESIUM OXIDE 400MG TAB (MAG-OX) PO SCH ×2 (09:53→21:54)
[2021-01-07] MEDS: SENOKOT S TAB PO SCH ×2 (09:54→21:55)
[2021-01-07] MEDS: ASCORBIC ACID 500 MG TAB PO SCH (09:55)
[2021-01-07] MEDS: SILVER SULFADIAZINE 1% CR 50 GM JAR TOP SCH ×2 (09:56→21:56)
[2021-01-07] MEDS: CARVedilol 12.5 MG TAB PO SCH ×2 (09:56→21:00)
[2021-01-07 11:06] VITALS: BP 156/75
[2021-01-07] MEDS: ERTAPENEM SODIUM 1 GM in NS MINI-BAG PLUS 50 ML IV SCH (17:41)
[2021-01-07] MEDS ORDERED: diphenhydrAMINE 25MG CAP PO ONE (20:05)
[2021-01-07 21:04] VITALS: BP 115/59
[2021-01-07] MEDS: AMITRIPTYLINE 50 MG TAB PO SCH (21:55)
[2021-01-08 06:30] VITALS: BP 118/60
[2021-01-08] MEDS: HumaLOG INSULIN (NovoLOG) PER UNIT SC SCH ×4 (08:39→21:00)
[2021-01-08] MEDS: DOXYCYCLINE HYCLATE 100MG TABLET PO SCH ×2 (08:40→20:16)
[2021-01-08] MEDS: ACETAMINOPHEN TAB 650MG DOSE (2X325MG) PO SCH ×3 (08:41→20:17)
[2021-01-08] MEDS: SENOKOT S TAB PO SCH ×2 (08:42→20:16)
[2021-01-08] MEDS: MAGNESIUM OXIDE 400MG TAB (MAG-OX) PO SCH ×2 (08:42→20:16)
[2021-01-08] MEDS: ASCORBIC ACID 500 MG TAB PO SCH (08:43)
[2021-01-08] MEDS: ATORVASTATIN 20 MG TAB PO SCH (08:43)
[2021-01-08] MEDS: BUMETANIDE 1 MG TAB PO SCH (08:44)
[2021-01-08] MEDS: PANTOPRAZOLE 40MG TAB (PROTONIX) PO SCH (08:44)
[2021-01-08] MEDS: ASPIRIN 81MG ENTERIC TABLET PO SCH (08:45)
[2021-01-08] MEDS: CARVedilol 12.5 MG TAB PO SCH ×2 (08:46→20:17)
[2021-01-08] MEDS: FEBUXOSTAT 40 MG TABLET (ULORIC) PO SCH (08:46)
[2021-01-08] MEDS: SILVER SULFADIAZINE 1% CR 50 GM JAR TOP SCH ×2 (17:25→21:28)
[2021-01-08] MEDS: ERTAPENEM SODIUM 1 GM in NS MINI-BAG PLUS 50 ML IV SCH (17:26)
[2021-01-08] MEDS: AMITRIPTYLINE 50 MG TAB PO SCH (20:17)
[2021-01-08] MEDS: traMADol 50 MG TAB PO PRN (20:18)
[2021-01-08] MEDS: diphenhydrAMINE 25MG CAP PO PRN (21:27)
[2021-01-09 06:00] VITALS: BP 126/63
[2021-01-09] MEDS: PANTOPRAZOLE 40MG TAB (PROTONIX) PO SCH (08:09)
[2021-01-09] MEDS: MAGNESIUM OXIDE 400MG TAB (MAG-OX) PO SCH ×2 (08:09→20:06)
[2021-01-09] MEDS: DOXYCYCLINE HYCLATE 100MG TABLET PO SCH ×2 (08:09→20:05)
[2021-01-09] MEDS: HumaLOG INSULIN (NovoLOG) PER UNIT SC SCH ×4 (08:09→21:00)
[2021-01-09] MEDS: SENOKOT S TAB PO SCH ×2 (08:09→20:06)
[2021-01-09] MEDS: FEBUXOSTAT 40 MG TABLET (ULORIC) PO SCH (08:09)
[2021-01-09] MEDS: ACETAMINOPHEN TAB 650MG DOSE (2X325MG) PO SCH ×3 (08:10→20:06)
[2021-01-09] MEDS: CARVedilol 12.5 MG TAB PO SCH ×2 (08:10→20:05)
[2021-01-09] MEDS: ASCORBIC ACID 500 MG TAB PO SCH (08:10)
[2021-01-09] MEDS: BUMETANIDE 1 MG TAB PO SCH (08:10)
[2021-01-09] MEDS: ASPIRIN 81MG ENTERIC TABLET PO SCH (08:11)
[2021-01-09] MEDS: ATORVASTATIN 20 MG TAB PO SCH (08:11)
[2021-01-09] MEDS: SILVER SULFADIAZINE 1% CR 50 GM JAR TOP SCH ×2 (08:15→20:07)
[2021-01-09] MEDS: ERTAPENEM SODIUM 1 GM in NS MINI-BAG PLUS 50 ML IV SCH (16:43)
[2021-01-09] MEDS: traMADol 50 MG TAB PO PRN (20:04)
[2021-01-09] MEDS: AMITRIPTYLINE 50 MG TAB PO SCH (20:05)
[2021-01-10 06:00] VITALS: BP 146/66
[2021-01-10] MEDS: SENOKOT S TAB PO SCH ×2 (08:35→20:19)
[2021-01-10] MEDS: HumaLOG INSULIN (NovoLOG) PER UNIT SC SCH ×4 (08:35→20:49)
[2021-01-10] MEDS: FEBUXOSTAT 40 MG TABLET (ULORIC) PO SCH (08:35)
[2021-01-10] MEDS: BUMETANIDE 1 MG TAB PO SCH (08:36)
[2021-01-10] MEDS: CARVedilol 12.5 MG TAB PO SCH ×2 (08:36→20:21)
[2021-01-10] MEDS: ASPIRIN 81MG ENTERIC TABLET PO SCH (08:36)
[2021-01-10] MEDS: MAGNESIUM OXIDE 400MG TAB (MAG-OX) PO SCH ×2 (08:36→20:19)
[2021-01-10] MEDS: DOXYCYCLINE HYCLATE 100MG TABLET PO SCH ×2 (08:37→20:19)
[2021-01-10] MEDS: ATORVASTATIN 20 MG TAB PO SCH (08:37)
[2021-01-10] MEDS: ASCORBIC ACID 500 MG TAB PO SCH (08:37)
[2021-01-10] MEDS: ACETAMINOPHEN TAB 650MG DOSE (2X325MG) PO SCH ×3 (08:38→20:19)
[2021-01-10] MEDS: PANTOPRAZOLE 40MG TAB (PROTONIX) PO SCH (08:38)
[2021-01-10] MEDS: SILVER SULFADIAZINE 1% CR 50 GM JAR TOP SCH ×2 (08:39→20:22)
[2021-01-10] MEDS: ERTAPENEM SODIUM 1 GM in NS MINI-BAG PLUS 50 ML IV SCH (16:54)
[2021-01-10] MEDS: AMITRIPTYLINE 50 MG TAB PO SCH (20:22)
[2021-01-11 06:00] VITALS: BP 140/65
[2021-01-11] MEDS: ACETAMINOPHEN TAB 650MG DOSE (2X325MG) PO SCH ×3 (08:07→20:38)
[2021-01-11] MEDS: DOXYCYCLINE HYCLATE 100MG TABLET PO SCH ×2 (08:07→20:36)
[2021-01-11] MEDS: FEBUXOSTAT 40 MG TABLET (ULORIC) PO SCH (08:07)
[2021-01-11] MEDS: PANTOPRAZOLE 40MG TAB (PROTONIX) PO SCH (08:08)
[2021-01-11] MEDS: CARVedilol 12.5 MG TAB PO SCH ×2 (08:08→20:37)
[2021-01-11] MEDS: ASCORBIC ACID 500 MG TAB PO SCH (08:08)
[2021-01-11] MEDS: ASPIRIN 81MG ENTERIC TABLET PO SCH (08:08)
[2021-01-11] MEDS: ATORVASTATIN 20 MG TAB PO SCH (08:08)
[2021-01-11] MEDS: BUMETANIDE 1 MG TAB PO SCH (08:08)
[2021-01-11] MEDS: MAGNESIUM OXIDE 400MG TAB (MAG-OX) PO SCH ×2 (08:09→20:38)
[2021-01-11] MEDS: SENOKOT S TAB PO SCH ×2 (08:09→20:36)
[2021-01-11] MEDS: SILVER SULFADIAZINE 1% CR 50 GM JAR TOP SCH ×2 (08:09→20:39)
[2021-01-11] MEDS: HumaLOG INSULIN (NovoLOG) PER UNIT SC SCH ×4 (08:10→20:38)
[2021-01-11] MEDS: ERTAPENEM SODIUM 1 GM in NS MINI-BAG PLUS 50 ML IV SCH (17:37)
--- NOTE | 2021-01-11 19:11 | REP ---
INDICATION: R stump abscess r/o new pus pocket. COMPARISON: None. TECHNIQUE: Real-time sonographic evaluation of right lower extremity soft tissues performed. FINDINGS: In the right lower extremity soft tissues at the site of clinical suspicion there is no evidence of fluid collection or mass. IMPRESSION: No evidence of fluid collection or abscess in the right lower extremity soft tissues. <Electronically signed by Micah Rea > 01/11/21 [id number]
--- NOTE | 2021-01-11 20:23 | IPN ---
PROGRESS NOTE DATE: 01/11/2021 SUBJECTIVE: Analisa seems to be doing well today. She has no nausea, vomiting, or diarrhea. No abdominal pain, fever, or chills. She still has some drainage from the stump from the medial wound that still has some areas of necrosis. On the lateral side of the incision where there was a small area that was oozing, this has completely closed. She has no other complaints. OBJECTIVE: The dressing was changed with her nurse, Shana, at the bedside. The right above-knee amputation site, there is an area of 2 x 1 cm opening, medially the tunnel is at least 4 to 5 cm in every direction. There is some purulent discharge on the dressing. There is an ulcer that is horizontal across the upper thigh about 10 cm above the stump, which was probably a site of a tourniquet from the OR; that area is healing well and there is no evidence of infection. No purulent discharge. The width of the wound measures about 0.75 cm and the length of it is about 10 cm with no surrounding cellulitis. ASSESSMENT AND PLAN: Stump abscess with culture positive for extended-spectrum beta-lactamase (ESBL) Klebsiella and Staph coag negative. The patient has been on IV Invanz and p.o. doxycycline since 01/05 currently day #7. Will continue with at least another three days of antibiotic since the wound has not decreased markedly in size. Will also obtain an ultrasound of the stump to make sure she does not have any other loculated collection. Will obtain follow-up CBC, CRP, and ESR for tomorrow. Her nurse at the bedside will change the peripheral IV as it is already seven days old and continue with IV antibiotics.
[2021-01-11] MEDS: AMITRIPTYLINE 50 MG TAB PO SCH (20:37)
[2021-01-11 21:05] VITALS: BP 137/65
[2021-01-11] MEDS: diphenhydrAMINE 25MG CAP PO PRN (22:00)
[2021-01-11] MEDS: traMADol 50 MG TAB PO PRN (23:11)
[2021-01-12 06:00] VITALS: BP 137/66
[2021-01-12 06:23] LABS: BASO # 0.1 10^3/uL (0.0-0.2); BASO % 0.9 % (0.0-1.0); EOS # 0.5 10^3/uL (0.0-0.5); EOS % 5.9 % (0.0-3.0); HEMATOCRIT 29.1 % (36.0-47.0); LYMPH # 2.9 10^3/uL (1.5-5.0); LYMPH % 32.2 % (24.0-44.0); MEAN CORPUSCULAR HEMOGLOBIN 27.8 pg (27.0-33.0); MEAN CORPUSCULAR HGB CONC 30.9 g/dl (32.0-36.5); MEAN CORPUSCULAR VOLUME 89.8 fl (80.0-96.0); MONO % 10.6 % (2.0-8.0); NEUTROPHILS # 4.6 10^3/uL (1.5-8.5); PLATELET COUNT, AUTOMATED 355 10^3/uL (150-450); RED BLOOD COUNT 3.24 10^6/uL (4.00-5.40); WHITE BLOOD COUNT 9.1 10^3/uL (4.0-10.0)
[2021-01-12 06:41] LABS: BLOOD UREA NITROGEN 10 MG/DL (7-18); CALCIUM LEVEL 8.9 MG/DL (8.8-10.2); CARBON DIOXIDE LEVEL 31 MEQ/L (21-32); CHLORIDE LEVEL 101 MEQ/L (98-107); CREATININE FOR GFR 0.53 MG/DL (0.55-1.30); GLOMERULAR FILTRATION RATE > 60.0 (>45); GLUCOSE, FASTING 139 MG/DL (70-100); POTASSIUM SERUM 3.6 MEQ/L (3.5-5.1); SODIUM LEVEL 137 MEQ/L (136-145)
[2021-01-12 06:55] LABS: ERYTHROCYTE SEDIMENTATION RATE 54 mm/hr (0-30)
[2021-01-12] MEDS: HumaLOG INSULIN (NovoLOG) PER UNIT SC SCH ×4 (07:30→20:34)
[2021-01-12] MEDS: CARVedilol 12.5 MG TAB PO SCH ×2 (09:00→20:33)
[2021-01-12] MEDS: BUMETANIDE 1 MG TAB PO SCH (09:37)
[2021-01-12] MEDS: MAGNESIUM OXIDE 400MG TAB (MAG-OX) PO SCH ×2 (09:41→20:34)
[2021-01-12] MEDS: ACETAMINOPHEN TAB 650MG DOSE (2X325MG) PO SCH ×3 (09:42→20:31)
[2021-01-12] MEDS: FEBUXOSTAT 40 MG TABLET (ULORIC) PO SCH (09:42)
[2021-01-12] MEDS: ASPIRIN 81MG ENTERIC TABLET PO SCH (09:43)
[2021-01-12] MEDS: DOXYCYCLINE HYCLATE 100MG TABLET PO SCH ×2 (09:43→20:32)
[2021-01-12] MEDS: ASCORBIC ACID 500 MG TAB PO SCH (09:43)
[2021-01-12] MEDS: SENOKOT S TAB PO SCH ×2 (09:44→20:31)
[2021-01-12] MEDS: PANTOPRAZOLE 40MG TAB (PROTONIX) PO SCH (09:44)
[2021-01-12] MEDS: ATORVASTATIN 20 MG TAB PO SCH (09:45)
[2021-01-12] MEDS: SILVER SULFADIAZINE 1% CR 50 GM JAR TOP SCH ×2 (09:55→20:34)
--- NOTE | 2021-01-12 11:27 | IPNPDOC ---
Text Note Date of Service The patient was seen on 01/12/21. NOTE Subjective: Patient is a 65-year-old female with a PMHx of HTN, CAD, Chronic A. fib, CHF, PVD, DLP, DM2, Gout, Vertigo, GERD who presented to the ER with complaints of infected R heel wound. Patient was admitted to the hospitalist service for further evaluation and treatment. Podiatry and ID were called on consultation. Patient's hospital course is fairly complicated. Initially patient had podiatry intervention of her right foot followed by vascular intervention with angioplasty. Patient was on prolonged antibiotics for a osteomyelitis. Her hospital course was complicated with an acute CVA with residual left-sided weakness. Patient had failed to improve with IV antibiotics after surgery was called for further evaluation and patient ultimately underwent a right-sided [id number] amputation. Patient was seen and examined at the bedside. Currently denies any pain, nausea, vomiting, diarrhea or urinary discomfort. Denies any cough, SOB or palpitations. Objective: Vitals (See below) General: Sitting up in bed, appears comfortable, Awake / Alert, Oriented x3 HEENT: Atraumatic and normocephalic CVS: +S1S2 Lungs: There appears to be fair air entry bilaterally without any auscultated evidence of crackles, wheezing, rhonchi Abdomen: Remains soft without any distention or tenderness Extremities: Right lower extremity with bmdpf-fct-ocyi retention. Small areas of drainage noted at the stump site and medial aspect of the inner thigh, left lower extremity without any edema Imaging: Extremity CT 10/05: 1. There is a large soft tissue ulceration defect seen in the medial heel pad of the right foot, best seen on image 108 of series 303. 2. Medial to the soft tissue defect there is a fluid and gas collection, likely an abscess, measuring 2.8 x 2.1 cm transversely on image 61 of series 302 and measuring 1.6 cm in craniocaudal dimension on image 104 of series 303. 3. The bony cortical outline and marrow defect underlying the soft tissue defect are suggestive of acute osteomyelitis on image 50 of series 302. 4. No acute fractures. 5. Chronic calcific enthesopathy is seen in the proximal Achilles on image 6 of series 302. Foot XR 10/07: Postsurgical changes at the posterior aspect of calcaneal process. No immediate complication is evident. Head CT 10/20: Mild generalized volume loss. No acute intracranial abnormality. CTA head 10/20: 1. Occluded right middle cerebral artery proximally. 2. Corresponding hypodensity in the right middle cerebral artery territory suggestive of acute infarct. No acute hemorrhage. CXR 11/03: Area of increased density in the right apex should be evaluated further with PA and lateral views. Slight cardiac enlargement. No evidence of failure or pneumonia. PICC line in place with tip in superior vena cava. Carotid Vascular US 10/20: According to the SRU criteria there is less than 50% stenosis of the internal carotid artery bilaterally. This is secondary to both calcified and noncalcified plaque formation CT Head 10/20: 1. There has been no change since a study done earlier in the day. No interval hemorrhage. 2. Minimal chronic ischemic white matter change and atrophy with ill-defined areas of slightly decreased attenuation in the right cerebral hemisphere petey trally and subcortical parietal lobe which are unchanged. ECHO 10/20: 1. Study is of acceptable technical quality; underlying atrial fibrillation and ventricular pacing. 2. Normal LV size with moderate left ventricular hypertrophy and estimated LVEF of 45 to 50%. Septal wall motion abnormality likely related to pacing. 3. No hemodynamically significant aortic valvular disease in spite of prominent valvular sclerosis. 4. Mild to moderate mitral insufficiency. 5. Elevated central venous pressure and mild pulmonary hypertension. 6. Severe biatrial enlargement. 7. Suspicion for left to right shunt across atrial septum based on color Doppler imaging. 8. "Negative Bubble Study." Esophageal XR 10/21: The patient is able to be given all consistencies performed today. However, there is an increase risk with ingestion of all food because of delayed triggering and pooling in the vallecula. CT head 10/21: New area of abnormal decreased attenuation as described above consistent with an acute nonhemorrhagic infarction. MRI examination of the brain is recommended. CT head 10/22: Who ventricular nucleus and external capsule nonhemorrhagic infarct showing slight increase when compared with yesterday's examination. No evidence of hemorrhage or mass effect. CXR 10/22: Stable cardiomegaly. Cardiac electrodes remain in place Prominent lung markings -- perhaps [id number]-uu-[id number] vascular congestion. Diffuse interstitial pneumonitis cannot be excluded. Clinical correlation is needed. Follow-up is suggested, as symptoms warrant. CXR 10/25: 1. There is moderate congestive change with moderate pulmonary edema. 2. Mild left basilar atelectasis or infiltrate. Foot XR 11/06: Soft tissue and bony defect along the posterior aspect of the foot involving calcaneus. Esophagus XR 11/11: Flash penetration as described above, a detailed report will be provided by speech pathology. 3.3 minutes of fluoroscopy time was utilized for this procedure. Some fluoroscopic images are performed with last image hold technology. These images require no additional radiation CT Head 11/11: Again noted is a subacute infarction in the distribution of the right lenticul ostriate arteries. There are no complications evident. No significant change. Shoulder XR 11/16: No evidence of fracture or dislocation. There is arthritis of the acromiocl avicular and glenohumeral joints. Arterial US 11/18: Occlusion distal right superficial femoral artery and proximal popliteal artery with reconstitution of the distal popliteal artery. Very slow flow in the distal calf arteries at the ankle. Extremity US 01/11: No evidence of fluid collection or abscess in the right lower extremity soft tissues. Assessment and plan: Right medial thigh recently debrided with area of some drainage noted - No surrounding erythema; drainage noted - Remains hemodynamically stable / afebrile - No leukocytosis / Inflammatory markers improving - Wound cultures 01/01: Klebsiella pneumonia ESBL, Staphylococcus coag negative - s/p Incision necrotic skin and superficial soft right thigh with Dr. Lakhani on 12/25/2020 - c/w dressing changes as per advanced care Dr. Rashid - Will reconsult General surgery / Advanced Wound care / Vascular surgery / Infectious disease - c/w Ertapenem / Doxycycline for a total of 7 days Infected RLE heel ulcer with acute osteomyelitis of the calcaneum; in the setting of vascular compromise; s/p R AKA - Wound appears clean without any significant erythema - No leukocytosis - Wound cultures 10/05: Escherichia coli, Morganella morganii, Enterococcus faecalis, MRSA - Wound cultures 10/07: Morganella morganii, Escherichia coli, Enterococcus faecalis - Wound culture 11/14: Pseudomonas aeruginosa - s/p Posterior resection of the right calcaneum on 10/07/[address] Bone - s/p Vascular intervention or R SFA angioplasty on 10/12/[address] Maya - s/p R AKA on 11/21/[address] Venegas; plans to remove TIKI drain 11/24 If INR is permissive - Imaging noted above - Podiatry, Vascular surgery, Interventional radiology, and infectious disease on consultation - s/p Antibiotic therapy; s/p Levaquin; Completed Zosyn (6 week course) - c/w PT and OT; will likely require rehabilitation moving forward Sacral Decubitus Ulcer (Stage III) - c/w dressing changes as per Dr. Rashid Ulcer besides PICC line insertion site - s/p PICC line - c/w dressing and wound care per Dr. Rashid Acute right MCA stroke with left sided weakness - Patient had code stroke called on 8/10 AM - Imaging noted above; Unable to get MRI 2/2 PM - c/w ASA 81 / Atorvastatin / Eliquis - Neurology was consulted; appreciated their input Chronic Systolic CHF - No evidence of decompensation / fluid overload - Patient remains saturating at 96% on room air - s/p AICD / Biventricular pacing - c/w Bumetanide Dysphagia - c/w Speech therapy recommendations s/p Troponin elevation - likely 2/2 demand ischemia / NSTEMI (Type II) - Troponin has normalized - ECHO Noted above - Serial EKGs have shown no significant change - c/w Carvedilol, ASA 81 s/p Gram-negative bacteremia - Blood cultures 10/05: (1 of 2) Morganella Morganii - Blood cultures 10/06: Negative at 5 days - s/p Antibiotic therapy Anemia / Acute blood loss 2/2 bleeding from BKA site - s/p Exploration of the right above-knee amputation stump and control of bleeding on 11/26/[address] Venegas - s/p 6 units PRBC and 2 units FFP - Hg stable IDDM2 - c/w ISS and Levemir HTN - BP well controlled - c/w Carvedilol, Bumetanide, Lisinopril, Amlodipine Chronic Atrial fibrillation - c/w rate control with Carvedilol - c/w Eliquis DLP - c/w Atorvastatin Gout - c/w Febuxostat CKD3 - Cr at baseline Neuropathy - c/w Amitriptyline Insomnia - Will add Ramelteon GI prophylaxis - c/w Protonix DVT prophylaxis - c/w full anticoagulation with Eliquis Disposition: - c/w ALC status VS,Fishbone, I+O VS, Fishbone, I+O Laboratory Tests 01/12/21 05:31 Vital Signs Date Time Temp Pulse Resp B/P (MAP) Pulse Ox O2 Delivery O2 Flow Rate FiO2 01/12/21 09:00 61 01/12/21 06:00 97.7 16 137/66 (89) 100 Room Air I&O- Last 24 Hours up to 6 AM 01/12/21 06:00 Intake Total 990 ml Output Total 1225 ml Balance -235 ml EMILY SOTO MD Jan 12, 2021 11:18
[2021-01-12] MEDS ORDERED: RAMELTEON 8 MG TAB (ROZEREM) PO PRN (11:30)
[2021-01-12] MEDS ORDERED: ONDANSETRON 4MG/2ML VIAL IV ONE (12:00)
[2021-01-12] MEDS: APIXABAN 5 MG TAB (ELIQUIS) PO SCH ×2 (12:54→20:31)
[2021-01-12 13:31] LABS: INR 1.12; PROTHROMBIN TIME 14.8 SECONDS (12.7-14.5)
[2021-01-12 13:32] LABS: PARTIAL THROMBOPLASTIN TIME 29.4 SECONDS (25.9-37.0)
[2021-01-12] MEDS: ERTAPENEM SODIUM 1 GM in NS MINI-BAG PLUS 50 ML IV SCH (17:31)
[2021-01-12] MEDS: AMITRIPTYLINE 50 MG TAB PO SCH (20:33)
[2021-01-13 06:00] VITALS: BP 136/68
[2021-01-13 07:01] LABS: BASO # 0.1 10^3/uL (0.0-0.2); BASO % 1.1 % (0.0-1.0); EOS # 0.5 10^3/uL (0.0-0.5); EOS % 6.1 % (0.0-3.0); HEMATOCRIT 30.2 % (36.0-47.0); HEMOGLOBIN 9.4 g/dl (12.0-15.5); LYMPH % 37.6 % (24.0-44.0); MEAN CORPUSCULAR HEMOGLOBIN 27.6 pg (27.0-33.0); MEAN CORPUSCULAR HGB CONC 31.1 g/dl (32.0-36.5); MEAN CORPUSCULAR VOLUME 88.8 fl (80.0-96.0); MONO # 0.9 10^3/uL (0.0-0.8); MONO % 11.1 % (2.0-8.0); NEUTROPHILS # 3.5 10^3/uL (1.5-8.5); NEUTROPHILS % 43.9 % (36.0-66.0); PLATELET COUNT, AUTOMATED 342 10^3/uL (150-450)
[2021-01-13 07:30] LABS: BLOOD UREA NITROGEN 11 MG/DL (7-18); CALCIUM LEVEL 9.2 MG/DL (8.8-10.2); CARBON DIOXIDE LEVEL 32 MEQ/L (21-32); CHLORIDE LEVEL 102 MEQ/L (98-107); CREATININE FOR GFR 0.66 MG/DL (0.55-1.30); GLOMERULAR FILTRATION RATE > 60.0 (>45); GLUCOSE, FASTING 119 MG/DL (70-100); MAGNESIUM LEVEL 2.2 MG/DL (1.8-2.4); POTASSIUM SERUM 3.6 MEQ/L (3.5-5.1); SODIUM LEVEL 138 MEQ/L (136-145)
[2021-01-13] MEDS: HumaLOG INSULIN (NovoLOG) PER UNIT SC SCH ×4 (08:18→20:21)
[2021-01-13] MEDS: SENOKOT S TAB PO SCH ×2 (08:18→20:27)
[2021-01-13] MEDS: MAGNESIUM OXIDE 400MG TAB (MAG-OX) PO SCH ×2 (08:18→20:27)
[2021-01-13] MEDS: ASPIRIN 81MG ENTERIC TABLET PO SCH (08:18)
[2021-01-13] MEDS: ACETAMINOPHEN TAB 650MG DOSE (2X325MG) PO SCH ×3 (08:19→20:28)
[2021-01-13] MEDS: FEBUXOSTAT 40 MG TABLET (ULORIC) PO SCH (08:19)
[2021-01-13] MEDS: DOXYCYCLINE HYCLATE 100MG TABLET PO SCH ×2 (08:20→20:27)
[2021-01-13] MEDS: ASCORBIC ACID 500 MG TAB PO SCH (08:20)
[2021-01-13] MEDS: APIXABAN 5 MG TAB (ELIQUIS) PO SCH ×2 (08:20→20:27)
[2021-01-13] MEDS: SILVER SULFADIAZINE 1% CR 50 GM JAR TOP SCH ×2 (08:29→20:28)
[2021-01-13] MEDS: CARVedilol 12.5 MG TAB PO SCH ×2 (09:00→20:24)
[2021-01-13] MEDS: ATORVASTATIN 20 MG TAB PO SCH (12:00)
[2021-01-13] MEDS: BUMETANIDE 1 MG TAB PO SCH (12:00)
[2021-01-13] MEDS: PANTOPRAZOLE 40MG TAB (PROTONIX) PO SCH (12:00)
[2021-01-13 14:00] VITALS: BP 135/67
[2021-01-13] MEDS: ERTAPENEM SODIUM 1 GM in NS MINI-BAG PLUS 50 ML IV SCH (17:05)
[2021-01-13] MEDS: AMITRIPTYLINE 50 MG TAB PO SCH (20:27)
[2021-01-13 22:00] VITALS: BP 133/56
[2021-01-14 06:00] VITALS: BP 136/69
[2021-01-14 06:54] LABS: BASO # 0.1 10^3/uL (0.0-0.2); BASO % 1.3 % (0.0-1.0); EOS # 0.4 10^3/uL (0.0-0.5); EOS % 5.4 % (0.0-3.0); HEMATOCRIT 30.7 % (36.0-47.0); HEMOGLOBIN 9.6 g/dl (12.0-15.5); LYMPH # 2.9 10^3/uL (1.5-5.0); LYMPH % 38.7 % (24.0-44.0); MEAN CORPUSCULAR HEMOGLOBIN 27.8 pg (27.0-33.0); MEAN CORPUSCULAR HGB CONC 31.3 g/dl (32.0-36.5); MONO # 0.8 10^3/uL (0.0-0.8); MONO % 10.6 % (2.0-8.0); NEUTROPHILS # 3.3 10^3/uL (1.5-8.5); NEUTROPHILS % 43.7 % (36.0-66.0); PLATELET COUNT, AUTOMATED 349 10^3/uL (150-450); RED BLOOD COUNT 3.45 10^6/uL (4.00-5.40); WHITE BLOOD COUNT 7.5 10^3/uL (4.0-10.0)
[2021-01-14 07:19] LABS: BLOOD UREA NITROGEN 10 MG/DL (7-18); CALCIUM LEVEL 9.6 MG/DL (8.8-10.2); CARBON DIOXIDE LEVEL 31 MEQ/L (21-32); CHLORIDE LEVEL 98 MEQ/L (98-107); GLOMERULAR FILTRATION RATE > 60.0 (>45); GLUCOSE, FASTING 126 MG/DL (70-100); MAGNESIUM LEVEL 2.3 MG/DL (1.8-2.4); POTASSIUM SERUM 3.9 MEQ/L (3.5-5.1); SODIUM LEVEL 137 MEQ/L (136-145)
[2021-01-14] MEDS: HumaLOG INSULIN (NovoLOG) PER UNIT SC SCH ×2 (07:30→12:52)
[2021-01-14 07:45] VITALS: BP 140/70
[2021-01-14] MEDS: BUMETANIDE 1 MG TAB PO SCH (08:46)
[2021-01-14] MEDS: CARVedilol 12.5 MG TAB PO SCH ×2 (08:48→09:39)
[2021-01-14] MEDS: PANTOPRAZOLE 40MG TAB (PROTONIX) PO SCH (08:56)
[2021-01-14] MEDS: ACETAMINOPHEN TAB 650MG DOSE (2X325MG) PO SCH ×2 (08:56→16:48)
[2021-01-14] MEDS: ATORVASTATIN 20 MG TAB PO SCH (08:57)
[2021-01-14] MEDS: MOM 30ML SUSPENSION UDC PO PRN (09:37)
[2021-01-14] MEDS: MIRALAX *UNIT DOSE* 17GM PACKET PO PRN (09:37)
[2021-01-14] MEDS: traMADol 50 MG TAB PO PRN (09:37)
[2021-01-14] MEDS: ASPIRIN 81MG ENTERIC TABLET PO SCH (09:37)
[2021-01-14] MEDS: ASCORBIC ACID 500 MG TAB PO SCH (09:38)
[2021-01-14] MEDS: SENOKOT S TAB PO SCH (09:38)
[2021-01-14] MEDS: FEBUXOSTAT 40 MG TABLET (ULORIC) PO SCH (09:38)
[2021-01-14] MEDS: MAGNESIUM OXIDE 400MG TAB (MAG-OX) PO SCH (09:39)
[2021-01-14] MEDS: DOXYCYCLINE HYCLATE 100MG TABLET PO SCH (09:39)
[2021-01-14 09:40] VITALS: BP 140/70
[2021-01-14] MEDS: SILVER SULFADIAZINE 1% CR 50 GM JAR TOP SCH (09:41)
[2021-01-14] MEDS: APIXABAN 5 MG TAB (ELIQUIS) PO SCH (09:41)
[2021-01-14] MEDS ORDERED: TRAM50TA2 PO (11:04)
[2021-01-14] MEDS ORDERED: INSUHUMDS SC (11:04)
[2021-01-14] MEDS ORDERED: MAGN400T33 PO (11:04)
--- NOTE | 2021-01-14 11:23 | DS.PDOC ---
Discharge Summary General Date of Admission Oct 05, 2020 at 12:59 Date of Discharge 01/14/2021 Discharge Summary PROCEDURES PERFORMED DURING STAY: Posterior resection of the right calcaneum on 10/07/[address] Bone Vascular intervention or R SFA angioplasty on 10/12/[address] Francesco GEORGE on 11/21/[address] Venegas; plans to remove TIKI drain 11/24 If INR is permissive Exploration of the right above-knee amputation stump and control of bleeding on 11/26/[address] Venegas Incision necrotic skin and superficial soft right thigh with Dr. Lakhani on 12/25/2020 ADMITTING DIAGNOSES / DISCHARGE DIAGNOSES: Right medial thigh recently debrided with area of some drainage noted Infected RLE heel ulcer with acute osteomyelitis of the calcaneum; in the setting of vascular compromise; s/p R AKA Sacral Decubitus Ulcer (Stage III) Urinary retention Ulcer besides PICC line insertion site s/p Acute right MCA stroke with left sided weakness Chronic Systolic CHF Dysphagia s/p Troponin elevation - likely 2/2 demand ischemia / NSTEMI (Type II) s/p Gram-negative bacteremia Anemia / Acute blood loss 2/2 bleeding from BKA site IDDM2 HTN Chronic Atrial fibrillation DLP Gout CKD3 Neuropathy Insomnia GI prophylaxis DVT prophylaxis COMPLICATIONS/CHIEF COMPLAINT: R foot ulcer HISTORY OF PRESENT ILLNESS: Patient is a 65-year-old female with a PMHx of HTN, CAD, Chronic A. fib, CHF, PVD, DLP, DM2, Gout, Vertigo, GERD who presented to the ER with complaints of infected R heel wound. Patient was admitted to the hospitalist service for further evaluation and treatment. Podiatry and ID were called on consultation. Patient's hospital course is fairly complicated. Initially patient had podiatry intervention of her right foot followed by vascular intervention with angioplasty. Patient was on prolonged antibiotics for a osteomyelitis. Her hospital course was complicated with an acute CVA with residual left-sided weakness. Patient had failed to improve with IV antibiotics after surgery was called for further evaluation and patient ultimately underwent a right-sided jvaqf-cmq-tuak amputation. 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 Patient denies any nausea, vomiting, chest pain, shortness of breath. Patient does report constipation. Advised her that she'll be transitioned [facility] today for continued PT and OT. I have addressed all her questions and concerns. I have advised her that she will continue to follow up with Dr. Rashid as an outpatient. HOSPITAL COURSE: Right medial thigh recently debrided with area of some drainage noted - Wound appears clean without any surrounding erythema - Afebrile / Hemodynamically stable - No leukocytosis / Inflammatory markers trending down - Wound cultures 01/01: Klebsiella pneumonia ESBL, Staphylococcus coag negative - s/p Incision necrotic skin and superficial soft right thigh with Dr. Lakhani on 12/25/2020 - c/w dressing changes as per advanced care Dr. Rashid - General surgery / Advanced Wound care / Vascular surgery / Infectious disease on consultation - Has completed course of Ertapenem / Doxycycline for a total of 10 days - Will have outpatient follow-up with Dr. Ospina and infectious disease within the next 7 days Infected RLE heel ulcer with acute osteomyelitis of the calcaneum; in the setting of vascular compromise; s/p R AKA - Wound appears clean without any significant erythema - No leukocytosis - Wound cultures 10/05: Escherichia coli, Morganella morganii, Enterococcus faecalis, MRSA - Wound cultures 10/07: Morganella morganii, Escherichia coli, Enterococcus faecalis - Wound culture 11/14: Pseudomonas aeruginosa - s/p Posterior resection of the right calcaneum on 10/07/[address] Bone - s/p Vascular intervention or R SFA angioplasty on 10/12/[address] Maya - s/p R AKA on 11/21/[address] Venegas; plans to remove TIKI drain 11/24 If INR is permissive - Imaging noted above - Podiatry, Vascular surgery, Interventional radiology, and infectious disease on consultation - s/p Levaquin; Completed Zosyn (6 week course) - c/w PT and OT; patient. We transitioned [facility] moving forward Sacral Decubitus Ulcer (Stage III) - c/w dressing changes as per Dr. Rashid Urinary retention - c/w Landis catheter - Will have outpatient follow up with Urology Ulcer besides PICC line insertion site - s/p PICC line - c/w dressing and wound care per Dr. Rashid s/p Acute right MCA stroke with left sided weakness - Patient had code stroke called on 8/10 AM - Imaging noted above; Unable to get MRI 2/2 PM - c/w ASA 81 / Atorvastatin / Eliquis - Neurology was consulted; appreciated their input Chronic Systolic CHF - Again no evidence of decompensation / fluid overload - Patient remains saturating well on room air - s/p AICD / Biventricular pacing - c/w Bumetanide Dysphagia - c/w Speech therapy recommendations s/p Troponin elevation - likely 2/2 demand ischemia / NSTEMI (Type II) - Troponin has normalized - ECHO Noted above - Serial EKGs have shown no significant change - c/w Carvedilol, ASA 81 s/p Gram-negative bacteremia - Blood cultures 10/05: (1 of 2) Morganella Morganii - Blood cultures 10/06: Negative at 5 days - s/p Antibiotic therapy Anemia / Acute blood loss 2/2 bleeding from BKA site - s/p Exploration of the right above-knee amputation stump and control of bleeding on 11/26/[address] Venegas - s/p 6 units PRBC and 2 units FFP - Hg stable IDDM2 - s/p Levemir - c/w ISS on discharge HTN - BP well controlled - c/w Carvedilol, Bumetanide, Lisinopril, Amlodipine Chronic Atrial fibrillation - s/p Digoxin - c/w rate control with Carvedilol - c/w Eliquis DLP - c/w Atorvastatin Gout - c/w Febuxostat CKD3 - Cr at baseline Neuropathy - c/w Amitriptyline Insomnia - c/w Ramelteon while inpatient GI prophylaxis - c/w Protonix DVT prophylaxis - c/w full anticoagulation with Eliquis DISCHARGE MEDICATIONS: Please see below. ALLERGIES: Please see below. PHYSICAL EXAMINATION ON DISCHARGE: Vitals (See below) General: Lying in bed, appears to be comfortable, awake, alert, oriented x3 HEENT: Normocephalic and atraumatic CVS: +S1S2 Lungs: Auscultation does not reveal any rhonchi, rales or wheezing Abdomen: ND, NT, soft Extremities: LLE without edema; RLE stump; distal area with packing in place, medial thigh with clean margins and dressing intact LABORATORY DATA: Please see below. IMAGING: Extremity CT 10/05: 1. There is a large soft tissue ulceration defect seen in the medial heel pad of the right foot, best seen on image 108 of series 303. 2. Medial to the soft tissue defect there is a fluid and gas collection, likely an abscess, measuring 2.8 x 2.1 cm transversely on image 61 of series 302 and measuring 1.6 cm in craniocaudal dimension on image 104 of series 303. 3. The bony cortical outline and marrow defect underlying the soft tissue defect are suggestive of acute osteomyelitis on image 50 of series 302. 4. No acute fractures. 5. Chronic calcific enthesopathy is seen in the proximal Achilles on image 6 of series 302. Foot XR 10/07: Postsurgical changes at the posterior aspect of calcaneal process. No immediate complication is evident. Head CT 10/20: Mild generalized volume loss. No acute intracranial abnormality. CTA head 10/20: 1. Occluded right middle cerebral artery proximally. 2. Corresponding hypodensity in the right middle cerebral artery territory suggestive of acute infarct. No acute hemorrhage. CXR 11/03: Area of increased density in the right apex should be evaluated further with PA and lateral views. Slight cardiac enlargement. No evidence of failure or pneumonia. PICC line in place with tip in superior vena cava. Carotid Vascular US 10/20: According to the SRU criteria there is less than 50% stenosis of the internal carotid artery bilaterally. This is secondary to both calcified and noncalcified plaque formation CT Head 10/20: 1. There has been no change since a study done earlier in the day. No interval hemorrhage. 2. Minimal chronic ischemic white matter change and atrophy with ill-defined areas of slightly decreased attenuation in the right cerebral hemisphere centrally and subcortical parietal lobe which are unchanged. ECHO 10/20: 1. Study is of acceptable technical quality; underlying atrial fibrillation and ventricular pacing. 2. Normal LV size with moderate left ventricular hypertrophy and estimated LVEF of 45 to 50%. Septal wall motion abnormality likely related to pacing. 3. No hemodynamically significant aortic valvular disease in spite of prominent valvular sclerosis. 4. Mild to moderate mitral insufficiency. 5. Elevated central venous pressure and mild pulmonary hypertension. 6. Severe biatrial enlargement. 7. Suspicion for left to right shunt across atrial septum based on color Doppler imaging. 8. "Negative Bubble Study." Esophageal XR 10/21: The patient is able to be given all consistencies performed today. However, there is an increase risk with ingestion of all food because of delayed triggering and pooling in the vallecula. CT head 10/21: New area of abnormal decreased attenuation as described above consistent with an acute nonhemorrhagic infarction. MRI examination of the brain is recommended. CT head 10/22: Who ventricular nucleus and external capsule nonhemorrhagic infarct showing slight increase when compared with yesterday's examination. No evidence of hemorrhage or mass effect. CXR 10/22: Stable cardiomegaly. Cardiac electrodes remain in place Prominent lung markings -- perhaps volj-yi-blgsteov vascular congestion. Diffuse interstitial pneumonitis cannot be excluded. Clinical correlation is needed. Follow-up is suggested, as symptoms warrant. CXR 10/25: 1. There is moderate congestive change with moderate pulmonary edema. 2. Mild left basilar atelectasis or infiltrate. Foot XR 11/06: Soft tissue and bony defect along the posterior aspect of the foot involving c alcaneus. Esophagus XR 11/11: Flash penetration as described above, a detailed report will be provided by speech pathology. 3.3 minutes of fluoroscopy time was utilized for this procedure. Some fluoroscopic images are performed with last image hold technology. These images require no additional radiation CT Head 11/11: Again noted is a subacute infarction in the distribution of the right lenticulostriate arteries. There are no complications evident. No significant change. Shoulder XR 11/16: No evidence of fracture or dislocation. There is arthritis of the acromioclavicular and glenohumeral joints. Arterial US 11/18: Occlusion distal right superficial femoral artery and proximal popliteal artery with reconstitution of the distal popliteal artery. Very slow flow in the distal calf arteries at the ankle. Extremity US 01/11: No evidence of fluid collection or abscess in the right lower extremity soft tissues. ACTIVITY: [As tolerated]. DISCHARGE PLAN: Follow-up with primary care provider, vascular surgery, infectious disease, Urology and Dr. Rashid within the next 7 days Remain compliant with treatment plan and medications Return to the ER if you experience any problems DISPOSITION: [facility] DISCHARGE CONDITION: [Stable]. TIME SPENT ON DISCHARGE: 35 minutes. Vital Signs/I&Os Vital Signs Date Time Temp Pulse Resp B/P (MAP) Pulse Ox O2 Delivery O2 Flow Rate FiO2 01/14/21 10:07 18 Room Air 01/14/21 09:40 140/70 01/14/21 09:39 61 01/14/21 07:45 97.0 99 I&O- Last 24 Hours up to 6 AM 01/14/21 06:00 Intake Total 1550 ml Output Total 1000 ml Balance 550 ml Laboratory Data Labs 24H Laboratory Tests 2 01/13/21 11:31: Bedside Glucose (Misc Panel) 124H 01/13/21 16:32: Bedside Glucose (Misc Panel) 137H 01/13/21 20:17: Bedside Glucose (Misc Panel) 128H 01/14/21 06:30: Immature Granulocyte % (Auto) 0.3, Neutrophils (%) (Auto) 43.7, Lymphocytes (%) (Auto) 38.7, Monocytes (%) (Auto) 10.6H, Eosinophils (%) (Auto) 5.4H, Basophils (%) (Auto) 1.3H, Neutrophils # (Auto) 3.3, Lymphocytes # (Auto) 2.9, Monocytes # (Auto) 0.8, Eosinophils # (Auto) 0.4, Basophils # (Auto) 0.1, Nucleated Red Blood Cells % (auto) 0.0, Anion Gap 8, Glomerular Filtration Rate > 60.0, Calcium Level 9.6, Magnesium Level 2.3 01/14/21 10:46: CBC/BMP Laboratory Tests 01/14/21 06:30 FSBS Laboratory Tests Test 01/13/21 11:31 01/13/21 16:32 01/13/21 20:17 Range/Units Bedside Glucose (Misc Panel) 124 137 128 80-115 MG/DL Discharge Medications Scheduled Amitriptyline HCl (Amitriptyline HCl) 50 Mg Tablet, 50 MG PO QHS, (Reported) Amlodipine Besylate (Amlodipine Besylate) 5 Mg Tablet, 2.5 MG PO DAILY, (Repo rted) Apixaban (Eliquis) 5 Mg Tablet, 5 MG PO BID Ascorbic Acid (Ascorbic Acid) 500 Mg Tablet, 500 MG PO DAILY, (Reported) Aspirin (Aspirin EC) 81 Mg Tablet.dr, 81 MG PO DAILY Atorvastatin Calcium (Atorvastatin Calcium) 80 Mg Tablet, 1 TAB PO DAILY Bumetanide (Bumetanide) 1 Mg Tablet, 1 MG PO DAILY, (Reported) Carvedilol (Carvedilol) 12.5 Mg Tablet, 12.5 MG PO BID, (Reported) Febuxostat (Febuxostat) 40 Mg Tablet, 40 MG PO DAILY, (Reported) Insulin Human Lispro (Humalog) 100 Unit/1 Ml Vial, 0 UNITS SC ACHS Based on [facility] sliding scale Lisinopril (Lisinopril) 10 Mg Tablet, 10 MG PO DAILY, (Reported) Magnesium Oxide (Magnesium Oxide) 400 Mg Tablet, 400 MG PO BID Pantoprazole Sodium (Pantoprazole Sodium) 40 Mg Tablet.dr, 40 MG PO DAILY, (Reported) Sennosides/Docusate Sodium (Senna Plus Tablet) 1 Each Tablet, 2 TAB PO BID Scheduled PRN Polyethylene Glycol 3350 (Miralax) 17 Gm Powd.pack, 1 PKT PO DAILYPRN PRN for CONSTIPATION Tramadol HCl (Tramadol HCl) 50 Mg Tablet, 50 MG PO Q6HP PRN for pain3-09/19scale Allergies Coded Allergies: trimethoprim (Verified Allergy, Mild, 10/28/20) EMILY SOTO MD Jan 14, 2021 11:23
[2021-01-14 14:00] VITALS: BP 140/70
== END 2021-01-14 17:05 | DRG 239 ==
LOC: UNDOADMIN 12:59 → M ED INP 12:59 → EEVIPCON 12:59 → M MSPAV 12:59 → M PCU 11-26 14:28 → M MS5PR 12-01 16:30
PROVIDERS: ADMIT Internal Medicine; ATTEND Internal Medicine
PROC: 0YBM0ZZ Excision of Right Foot, Open Approach (ICD-10-PCS; 2020-10-07)
PROC: 30233K1 Transfusion of Nonautologous Frozen Plasma into Peripheral Vein, Percutaneous Approach (ICD-10-PCS; 2020-10-07)
PROC: 02HV33Z Insertion of Infusion Device into Superior Vena Cava, Percutaneous Approach (ICD-10-PCS; 2020-10-09)
PROC: 047K3ZZ Dilation of Right Femoral Artery, Percutaneous Approach (ICD-10-PCS; 2020-10-12)
PROC: 047M3ZZ Dilation of Right Popliteal Artery, Percutaneous Approach (ICD-10-PCS; 2020-10-12)
PROC: 047T3ZZ Dilation of Right Peroneal Artery, Percutaneous Approach (ICD-10-PCS; 2020-10-12)
PROC: B41FYZZ Fluoroscopy of Right Lower Extremity Arteries using Other Contrast (ICD-10-PCS; 2020-10-12)
PROC: 0JBQ0ZZ Excision of Right Foot Subcutaneous Tissue and Fascia, Open Approach (ICD-10-PCS; 2020-10-17)
PROC: 0YBM0ZZ Excision of Right Foot, Open Approach (ICD-10-PCS; 2020-11-03)
PROC: 30233N1 Transfusion of Nonautologous Red Blood Cells into Peripheral Vein, Percutaneous Approach (ICD-10-PCS; 2020-11-07)
PROC: 0Y6F0ZZ Detachment at Right Knee Region, Open Approach (ICD-10-PCS; principal; 2020-11-21 08:30)
PROC: 0SCC0ZZ Extirpation of Matter from Right Knee Joint, Open Approach (ICD-10-PCS; 2020-11-26)
PROC: 0JBL0ZZ Excision of Right Upper Leg Subcutaneous Tissue and Fascia, Open Approach (ICD-10-PCS; 2020-12-25)
DX: E11.52 Type 2 diabetes mellitus with diabetic peripheral angiopathy with gangrene (principal); I63.9 Cerebral infarction, unspecified; I21.4 Non-ST elevation (NSTEMI) myocardial infarction; L89.153 Pressure ulcer of sacral region, stage 3; L89.614 Pressure ulcer of right heel, stage 4; M86.271 Subacute osteomyelitis, right ankle and foot; R78.81 Bacteremia; I69.352 Hemiplegia and hemiparesis following cerebral infarction affecting left dominant side; N17.9 Acute kidney failure, unspecified; I50.22 Chronic systolic (congestive) heart failure; D62 Acute posthemorrhagic anemia; I48.20 Chronic atrial fibrillation, unspecified; I13.0 Hypertensive heart and chronic kidney disease with heart failure and stage 1 through stage 4 chronic kidney disease, or unspecified chronic kidney disease; E87.1 Hypo-osmolality and hyponatremia; T87.41 Infection of amputation stump, right upper extremity; I70.261 Atherosclerosis of native arteries of extremities with gangrene, right leg; T87.89 Other complications of amputation stump; E11.69 Type 2 diabetes mellitus with other specified complication; E11.40 Type 2 diabetes mellitus with diabetic neuropathy, unspecified; E11.319 Type 2 diabetes mellitus with unspecified diabetic retinopathy without macular edema; T45.515A Adverse effect of anticoagulants, initial encounter; T87.81 Dehiscence of amputation stump; N18.32 Chronic kidney disease, stage 3b; G47.00 Insomnia, unspecified; M10.9 Gout, unspecified; I25.10 Atherosclerotic heart disease of native coronary artery without angina pectoris; K21.9 Gastro-esophageal reflux disease without esophagitis; K59.00 Constipation, unspecified; B96.29 Other Escherichia coli [E. coli] as the cause of diseases classified elsewhere; B95.62 Methicillin resistant Staphylococcus aureus infection as the cause of diseases classified elsewhere; B96.5 Pseudomonas (aeruginosa) (mallei) (pseudomallei) as the cause of diseases classified elsewhere; R33.9 Retention of urine, unspecified; Z79.899 Other long term (current) drug therapy; Z79.82 Long term (current) use of aspirin; Z88.8 Allergy status to other drugs, medicaments and biological substances; E78.5 Hyperlipidemia, unspecified; Z79.4 Long term (current) use of insulin; Z87.891 Personal history of nicotine dependence; I25.2 Old myocardial infarction; D63.1 Anemia in chronic kidney disease; Y83.5 Amputation of limb(s) as the cause of abnormal reaction of the patient, or of later complication, without mention of misadventure at the time of the procedure